=== PATIENT | male | born 1950 | race Caucasian/White ===

== ENCOUNTER → 2016-04-08 | Outpatient (CLI) | payer MEDICARE ==
[2016-04-08 10:49] LABS: Blood Urea Nitrogen 21 mg/dL (9-20); Non-African American GFR(MDRD) >60 (>60 ml/min/1.73 sqM)
--- NOTE | 2016-04-08 13:01 | CT ---
EXAMINATION TYPE: CT pelvis w con DATE OF EXAM: 04/08/2016 11:22 AM COMPARISON: CT left hip March 08, 2016 HISTORY: Enlarged pelvic lymph node per order. CT DLP: 1550.00 mGycm Automated exposure control for dose reduction was used. CONTRAST: Performed with IV Contrast, patient injected with 100 mL of Omnipaque 300. FINDINGS: In the left groin there is persistent oval-shaped soft tissue density measuring 2.5 x 2.0 cm on axial image 43 anterior to the femoral vessels in which enlarged abnormal lymph node cannot be excluded. This is stable in size and appearance from prior exam. Just below this inferiorly extending towards t he skin surface there is a tortuous vessel. A vascular etiology to this lesion such as aneurysm canno t be excluded. There is no suspicious small or large bowel dilatation. There is no concerning pelvic fluid collectio n or pneumoperitoneum. There is no greater than 1 cm intrapelvic adenopathy identified. No suspicious right side groin adenopathy is seen. Urinary bladder is felt within normal limits. Prostate gland is felt not enlarged. There is moderate to severe disc space narrowing and spurring with vacuum disc phenomenon and endplat e sclerosis right L3-L4 level. Slight scoliotic curvature is present. There is subchondral cystic jordy nge involving the superolateral acetabulum on the left redemonstrated. IMPRESSION: STABLE LESION LEFT GROIN COULD REFLECT ABNORMAL LYMPH NODE VERSUS VASCULAR ETIOLOGY. ADVISE ULTRASOUN D CORRELATION TO FURTHER ASSESS.
== END | disposition home or self-care (01) ==
LOC: RADCTMAIN 10:08
PROVIDERS: ATTEND Internal Medicine
DX: R59.0 Localized enlarged lymph nodes (principal)
CPT/HCPCS: 82565; 84520; 72193; 36415; Q9967

== ENCOUNTER → 2016-06-07 | Outpatient (CLI) | payer OTHER | END | disposition home or self-care (01) | LOC: LABWHC1 10:52 | PROVIDERS: ATTEND Orthopaedic Surgery | DX: E55.9 Vitamin D deficiency, unspecified (principal) | CPT/HCPCS: 36415; 82306 ==

== ENCOUNTER → 2016-08-08 | Outpatient (CLI) | payer MEDICARE, OTHER | END | disposition home or self-care (01) | LOC: LABWHC1 12:21 | PROVIDERS: ATTEND Internal Medicine Endocrinology, Diabetes & Metabolism | DX: E10.65 Type 1 diabetes mellitus with hyperglycemia (principal) | CPT/HCPCS: 36415; 82947; 84681 ==

== ENCOUNTER → 2016-09-12 | Outpatient (CLI) | payer MEDICARE, OTHER ==
--- NOTE | 2016-09-12 10:20 | US ---
EXAMINATION TYPE: US groin extremity LT DATE OF EXAM: 09/12/2016 COMPARISON: Previous CT scan of the pelvis dated 04/08/2016 CLINICAL HISTORY: Lymphadenopathy R59.1; left groin node seen on CT here Single left groin node is imaged = 2.4 x 2.0 x 0.8cm; also noted is patent, tortuous, and dilated sup erficial saphenous vein at left groin. IMPRESSION: 1. NO PATHOLOGICALLY ENLARGED LYMPH NODES ARE SEEN AT THIS TIME. 2. DILATED SUPERFICIAL SAPHENOUS VEIN MAY REFLECT VARICES.
== END | disposition home or self-care (01) ==
LOC: RADUSWWP 09:17
PROVIDERS: ATTEND Surgery
DX: R59.1 Generalized enlarged lymph nodes (principal); I86.8 Varicose veins of other specified sites

== ENCOUNTER → 2016-09-13 | Outpatient (CLI) | payer OTHER, MEDICARE ==
--- NOTE | 2016-09-13 09:35 | CT ---
EXAMINATION TYPE: CT foot LT wo con DATE OF EXAM: 09/13/2016 COMPARISON: Radiograph obtained on March 06, 2016. HISTORY: Displaced fx of 5th Metatarsal, Lt foot CT DLP: 145.3 mGycm Automated exposure control for dose reduction was used. TECHNIQUE: Axial CT images were obtained of the left foot without the use of contrast. Coronal and sa gittal reformatted images were reviewed at the workstation. FINDINGS: An oblique fracture is again noted in the mid to distal aspect of the fifth metatarsal. There is mini mal osteoid formation along the medial and inferior aspect of the fracture line. There is no signific ant osteoid formation along the superior distal and proximal aspects of the fracture. Some soft tissu e swelling is also noted at this location. There is no subcutaneous air or radiopaque foreign body id entified. A few vascular calcifications are again noted. The tendons of the foot are grossly unremarkable on this CT examination. Mild osteophyte changes are noted with osteophyte formation arising from the proximal aspect of the distal phalanx of the first d igit. Several other areas of degenerative changes are noted. IMPRESSION: Nonhealing spiral oblique fracture of the fifth metatarsal. Minimal osteoid formation noted medially and inferiorly.
== END | disposition home or self-care (01) ==
LOC: RADCTMAIN 07:45
PROVIDERS: ATTEND Orthopaedic Surgery
DX: S92.352G Displaced fracture of fifth metatarsal bone, left foot, subsequent encounter for fracture with delayed healing (principal); M86.672 Other chronic osteomyelitis, left ankle and foot; E10.43 Type 1 diabetes mellitus with diabetic autonomic (poly)neuropathy

== ENCOUNTER 2018-01-20 08:51 | Emergency (ER) | payer MEDICARE, OTHER ==
[2018-01-20 09:05] VITALS: TEMP 98.1
--- NOTE | 2018-01-20 09:08 | ED ---
General Adult HPI - General Stated complaint: Hypoglycemia Time Seen by Provider: 01/20/18 08:54 Source: patient, EMS, RN notes reviewed Mode of arrival: EMS Limitations: altered mental status - History of Present Illness Initial comments: Patient is a pleasant 67-year-old male presenting to the emergency department with hypoglycemia. 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 Patient admits to feeling somewhat confused. EMS arrived with blood sugar of 47. Patient was given oral glucose. Symptoms are resolved and patient is symptom-free at this time. No injury. Patient states he frequently does have his blood sugar dropped. Patient states he has been losing weight recently and his blood sugar has been dropping sometimes several times per day. Patient states he did have some toast this morning. - Related Data Home Medications Medication Instructions Recorded Confirmed Amitriptyline HCl [Elavil] 75 mg PO HS 10/16/13 01/20/18 Aspirin 81 mg PO DAILY 10/16/13 01/20/18 Cholecalciferol [Vitamin D3] 1,000 unit PO BID 10/16/13 01/20/18 Metoprolol Succinate [Toprol XL] 25 mg PO DAILY 10/16/13 01/20/18 Simvastatin [Zocor] 20 mg PO HS 10/16/13 01/20/18 Sodium Polystyrene Sulfonate 7.5 gm PO FR 10/16/13 01/20/18 [Kayexalate] Tamsulosin [Flomax] 0.4 mg PO DAILY 10/16/13 01/20/18 Citalopram Hydrobromide 20 mg PO DAILY 01/20/18 01/20/18 [Citalopram HBr] Col Rite 250 Mg 250 mg PO DAILY 01/20/18 01/20/18 Insulin Aspart (For Pump) [NovoLOG 0.01 unit SQ-PUMP CONTINUOUS 01/20/18 (For Pump)] Pantoprazole [Protonix] 40 mg PO BID 01/20/18 01/20/18 rOPINIRole HCL [Requip] 0.5 mg PO HS 01/20/18 01/20/18 traMADol HCl [Ultram] 50 mg PO TID PRN 01/20/18 01/20/18 Allergies Allergy/AdvReac Type Severity Reaction Status Date / Time No Known Allergies Allergy Verified 10/30/18 09:12 Review of Systems ROS Statement: Those systems with pertinent positive or pertinent negative responses have been documented in the HPI. ROS Other: All systems not noted in ROS Statement are negative. Constitutional: Denies: fever Eyes: Denies: eye pain ENT: Denies: ear pain Respiratory: Denies: cough Cardiovascular: Denies: chest pain Endocrine: Denies: fatigue Gastrointestinal: Denies: abdominal pain Genitourinary: Denies: dysuria Musculoskeletal: Denies: back pain Skin: Denies: rash Neurological: Denies: headache Past Medical History Past Medical History: Diabetes Mellitus Additional Past Medical History / Comment(s): neuropathy, back pain, History of Any Multi-Drug Resistant Organisms: None Reported Additional Past Surgical History / Comment(s): right knee, carpal tunnel, right shoulder, Past Psychological History: Depression Smoking Status: Former smoker Past Alcohol Use History: None Reported Past Drug Use History: None Reported General Exam Limitations: no limitations General appearance: alert, in no apparent distress Head exam: Present: atraumatic, normocephalic Eye exam: Present: normal appearance, PERRL ENT exam: Present: normal oropharynx Neck exam: Present: normal inspection. Absent: tenderness Respiratory exam: Present: normal lung sounds bilaterally Cardiovascular Exam: Present: regular rate, normal rhythm GI/Abdominal exam: Present: soft. Absent: tenderness Extremities exam: Present: normal inspection Neurological exam: Present: alert, oriented X3, CN II-XII intact. Absent: motor sensory deficit Expanded Neurological exam: Present: protecting the airway Speech: Present: fluid speech Cranial nerves: EOM's Intact: Normal Motor strength exam: RUE: 5, LUE: 5, RLE: 5, LLE: 5 Eye Response: (4) open spontaneously Motor Response: (6) obeys commands Verbal Response: (5) oriented Psychiatric exam: Present: normal affect, normal mood Skin exam: Present: normal color Course Vital Signs 01/20/18 08:53 Temperature 98.1 F Pulse Rate 62 Respiratory 18 Rate Blood Pressure 134/60 O2 Sat by Pulse 95 Oximetry - Reevaluation(s) Reevaluation #1: 01/20/18 09:07 Patient is advised to decrease his basal insulin rate on his pump and he is adjusting it at this time. Medical Decision Making - Medical Decision Making Patient reevaluated and remained symptom-free. Blood sugar 1:30. Patient has decreased his insulin pump settings all by 20%. 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 - Lab Data Lab Results 01/20/18 01/20/18 01/20/18 Range/Units 09:04 09:34 10:08 POC Glucose (mg/dL) 83 131 H 140 H (75-99) mg/dL POC Glu Play Reader Dilcia Davis Rachel Pearson, Rachel Disposition Clinical Impression: Hypoglycemia Disposition: HOME SELF-CARE Condition: Stable Instructions: Hypoglycemia in a Person with Diabetes (ED) Additional Instructions: Please follow-up with your primary care physician as well as your breeding technician in the next day or 2 for recheck. Please continue to check your blood sugar frequently throughout the day. Return for low blood sugar, uncontrolled blood sugar, change in mental status, worsening symptoms or other concerns. Is patient prescribed a controlled substance at d/c from ED?: No Referrals: Ej Gibsno MD [Primary Care Provider] - 1-2 days Time of Disposition: 10:21
[2018-01-20 09:25] LABS: Glucose,Whole Blood 83 mg/dL (75-99)
[2018-01-20 09:36] LABS: Glucose,Whole Blood 131 mg/dL (75-99)
[2018-01-20 10:09] LABS: Glucose,Whole Blood 140 mg/dL (75-99)
[2018-01-20 10:30] VITALS: BP 114/72; PULSE 67; RESP 16
== END 2018-01-20 10:30 | disposition home or self-care (01) ==
LOC: EC 08:51
DX: E11.649 Type 2 diabetes mellitus with hypoglycemia without coma (principal); E11.40 Type 2 diabetes mellitus with diabetic neuropathy, unspecified; F32.9 Major depressive disorder, single episode, unspecified; Z87.891 Personal history of nicotine dependence; Z79.4 Long term (current) use of insulin; Z79.82 Long term (current) use of aspirin; Z79.899 Other long term (current) drug therapy; Z87.39 Personal history of other diseases of the musculoskeletal system and connective tissue
CPT/HCPCS: 36415; 99285

== ENCOUNTER → 2018-01-26 | Outpatient (CLI) | payer MEDICARE, OTHER ==
--- NOTE | 2018-01-26 22:25 | MR ---
EXAMINATION TYPE: MR lumbar spine wo con DATE OF EXAM: 01/26/2018 COMPARISON: None HISTORY: 67-year-old male with pain, lumbar radiculopathy TECHNIQUE: Multiplanar, multisequence images of the lumbar spine were acquired. FINDINGS: Vertebral body heights are preserved and alignment is maintained. There is a degenerated levoconvex scoliosis. Associated severe disc/endplate degenerative change leticia cially along the rightward side of concavity at L3-L4. Associated Modic type II fatty endplate change . No suspicious bone marrow placement. Multilevel degenerative disc disease with variable mild to moderate disc desiccation and mild disc in terspace narrowing. Bulging discs are present at multiple levels. Ligamentum flavum thickening and hypertrophic facet arthropathy is present throughout. Conus medullaris is normal. No prevertebral or paravertebral soft tissue abnormality. At T12-L1, mild diffuse disc bulge without spinal canal or foraminal stenosis. At L1-L2, no spinal canal or neuroforaminal stenosis. At L2-L3, there is diffuse disc bulge with facet degenerative change. Changes result in mild left mary roforaminal stenosis. Disc material also closely approaches and may abut the traversing left L3 nerve root. At L3-L4, there is diffuse disc bulge with ligamentum flavum thickening and hypertrophic facet degene rative change. Changes result in moderate to severe spinal canal stenosis with moderate to severe rig ht neural foraminal stenosis. At L4-L5, bulging disc with ligamentum flavum thickening and facet arthropathy. Mild circumferential attenuation of the thecal sac. Disc material closely approaches and may abut the traversing left L5 n erve root. Changes result in minimal inferior neural foraminal narrowing. At L5-S1, there is diffuse disc bulge with facet degenerative change. Changes result in mild left mary roforaminal stenosis without spinal canal stenosis. IMPRESSION: 1. Degenerated levoconvex scoliosis with severe disc/endplate degenerative change towards the right a t L3-L4. 2. Additional moderate multilevel degenerative disc disease as well as hypertrophic facet arthropathy and ligamentum flavum thickening. Changes result in moderate to severe spinal canal stenosis at L3-L 4 with moderate to severe right neuroforaminal stenosis at this level as well. 3. Disc material closely approaches and may abut the traversing left L3 nerve root at L2-L3 and the l eft L5 nerve root at L4-L5.
== END | disposition home or self-care (01) ==
LOC: RADMRIMAIN 10:50
PROVIDERS: ATTEND Internal Medicine
DX: M48.061 Spinal stenosis, lumbar region without neurogenic claudication (principal); M99.73 Connective tissue and disc stenosis of intervertebral foramina of lumbar region; M51.36 Other intervertebral disc degeneration, lumbar region; M47.816 Spondylosis without myelopathy or radiculopathy, lumbar region; M41.86 Other forms of scoliosis, lumbar region
CPT/HCPCS: 72148

== ENCOUNTER → 2018-03-10 | Outpatient (CLI) | payer MEDICARE, OTHER ==
--- NOTE | 2018-03-10 22:41 | MR ---
EXAMINATION TYPE: MR brain wo/w con DATE OF EXAM: 03/10/2018 COMPARISON: NONE HISTORY: Brain tumor and TIA per order. Episodes of syncope with bilateral extremity numbness and wea kness and dizziness or hearing loss all probation. TECHNIQUE: Multiplanar, multisequence images of the brain and brainstem is performed without and with IV contras t, utilizing 11.5 mL intravenous Gadavist . FINDINGS: Diffusion weighted images demonstrate no evidence of a recent infarct or other diffusion ab normality. There is no worrisome extra-axial fluid collection. The ventricular system and cisternal spaces are normal in size and appearance. The brain volume is age appropriate. Few foci of T2 hyper intensity in the periventricular white matter are present. Midline structures demonstrate normal morphology. Lesion in the third ventricle FLAIR axial image 14 does not reproduced on any additional sequences presumed artifact. The craniocervical junction appear s within normal limits. Post contrast images demonstrate no abnormal enhancement. Dominant right vasu tebral artery is incidentally seen. The dural venous sinuses appear patent. The visualized sinuses ar e clear and the globes are intact. No suspicious opacification mastoid air cells is present bilateral ly. IMPRESSION: No significant finding is seen to account for patient's symptoms.
== END | disposition home or self-care (01) ==
LOC: RADMRIMAIN 08:14
PROVIDERS: ATTEND Psychiatry & Neurology Neurology
DX: D49.6 Neoplasm of unspecified behavior of brain (principal); G45.2 Multiple and bilateral precerebral artery syndromes
CPT/HCPCS: 82565; 84520; 70553; A9585

== ENCOUNTER 2018-03-20 18:09 | Emergency (ER) | payer MEDICARE, OTHER ==
--- NOTE | 2018-03-20 18:54 | ED ---
General Adult HPI - General Chief complaint: Recheck/Abnormal Lab/Rx Stated complaint: abn labs Time Seen by Provider: 03/20/18 18:42 Source: patient, RN notes reviewed, old records reviewed Mode of arrival: ambulatory Limitations: no limitations - History of Present Illness Initial comments: 67-year-old male history of diabetes, chronic kidney disease presenting with abnormal outpatient laboratory study. Patient had a low potassium on routine blood work. Bloodwork was obtained for pre-heart catheterization which is planned for the upcoming weeks. This was secondary to positive stress test. Patient denies chest pain, denies dyspnea. He does report moderate reduction in his urination. No lower extremity swelling. He currently follows with nephrology and is prescribed Kayexalate which she has not been using recently because his previous potassium level was low. Patient has no physical complaints. - Related Data Home Medications Medication Instructions Recorded Confirmed Amitriptyline HCl [Elavil] 75 mg PO HS 10/16/13 03/20/18 Aspirin 81 mg PO DAILY 10/16/13 03/20/18 Cholecalciferol [Vitamin D3] 1,000 unit PO BID 10/16/13 03/20/18 Simvastatin [Zocor] 20 mg PO HS 10/16/13 03/20/18 Sodium Polystyrene Sulfonate 7.5 gm PO FR 10/16/13 03/20/18 [Kayexalate] Tamsulosin [Flomax] 0.4 mg PO HS 10/16/13 03/20/18 Citalopram Hydrobromide 20 mg PO DAILY 01/20/18 03/20/18 [Citalopram HBr] Insulin Aspart (For Pump) [NovoLOG 0.01 unit SQ-PUMP CONTINUOUS 01/20/18 (For Pump)] Pantoprazole [Protonix] 40 mg PO BID 01/20/18 03/20/18 rOPINIRole HCL [Requip] 0.5 mg PO HS 01/20/18 03/20/18 traMADol HCl [Ultram] 50 mg PO TID PRN 01/20/18 03/20/18 Metoprolol Tartrate [Lopressor] 12.5 mg PO AC-BRKFST 03/20/18 03/20/18 Multivitamins, Thera [Multivitamin 1 tab PO DAILY 03/20/18 03/20/18 (formulary)] metFORMIN HCL [Glucophage] 500 mg PO BID 03/20/18 03/20/18 Allergies Allergy/AdvReac Type Severity Reaction Status Date / Time No Known Allergies Allergy Verified 03/20/18 19:23 Review of Systems ROS Statement: Those systems with pertinent positive or pertinent negative responses have been documented in the HPI. ROS Other: All systems not noted in ROS Statement are negative. Past Medical History Past Medical History: Diabetes Mellitus Additional Past Medical History / Comment(s): neuropathy, back pain, History of Any Multi-Drug Resistant Organisms: None Reported Additional Past Surgical History / Comment(s): right knee, carpal tunnel, right shoulder, Past Psychological History: Depression Smoking Status: Former smoker Past Alcohol Use History: None Reported Past Drug Use History: None Reported General Exam Limitations: no limitations General appearance: alert, in no apparent distress Head exam: Present: atraumatic, normocephalic Eye exam: Present: normal appearance, PERRL ENT exam: Present: normal exam Neck exam: Present: normal inspection. Absent: tenderness, meningismus Respiratory exam: Present: normal lung sounds bilaterally. Absent: respiratory distress, wheezes Cardiovascular Exam: Present: regular rate, normal rhythm GI/Abdominal exam: Present: soft. Absent: distended, tenderness, guarding Extremities exam: Present: normal inspection, normal capillary refill. Absent: pedal edema, calf tenderness Neurological exam: Present: alert, oriented X3, CN II-XII intact. Absent: motor sensory deficit Psychiatric exam: Present: normal affect, normal mood Skin exam: Present: warm, dry, intact. Absent: cyanosis, diaphoretic Course Vital Signs 03/20/18 18:12 Temperature 97.5 F L Pulse Rate 83 Respiratory 20 Rate Blood Pressure 149/76 O2 Sat by Pulse 99 Oximetry EKG Findings - EKG Comments: EKG Findings:: EKG: Sinus rhythm, rate of 69, UT interval 144, QRS duration 94, QTC 422, no ST segment elevation or depression no signs of hyperkalemia Medical Decision Making - Medical Decision Making 67-year-old male presenting with abnormal outpatient lab, patient had elevated potassium. He has no complaints. EKG shows normal sinus rhythm, no signs of hyperkalemia on EKG. Labs are redrawn, normal CBC, normal electrolytes including a potassium of 4.9 which is normal. Creatinine 1.25 which is improved from previous testing. Patient will be discharged home, follow-up with nephrology as an outpatient. - Lab Data Result diagrams: 03/20/18 18:59 03/20/18 18:59 Lab Results 03/20/18 03/20/18 Range/Units 18:59 18:59 WBC 6.0 (3.8-10.6) k/uL RBC 4.11 L (4.30-5.90) m/uL Hgb 13.0 (13.0-17.5) gm/dL Hct 38.9 L (39.0-53.0) % MCV 94.7 (80.0-100.0) fL MCH 31.7 (25.0-35.0) pg MCHC 33.4 (31.0-37.0) g/dL RDW 13.4 (11.5-15.5) % Plt Count 212 (150-450) k/uL Neutrophils % 46 % Lymphocytes % 41 % Monocytes % 5 % Eosinophils % 6 % Basophils % 0 % Neutrophils # 2.7 (1.3-7.7) k/uL Lymphocytes # 2.5 (1.0-4.8) k/uL Monocytes # 0.3 (0-1.0) k/uL Eosinophils # 0.3 (0-0.7) k/uL Basophils # 0.0 (0-0.2) k/uL Sodium 137 (137-145) mmol/L Potassium 4.9 (3.5-5.1) mmol/L Chloride 104 (98-107) mmol/L Carbon Dioxide 26 (22-30) mmol/L Anion Gap 7 mmol/L BUN 25 H (9-20) mg/dL Creatinine 1.25 (0.66-1.25) mg/dL Est GFR (CKD-EPI)AfAm 69 (>60 ml/min/1.73 sqM) Est GFR (CKD-EPI)NonAf 60 (>60 ml/min/1.73 sqM) Glucose 108 H (74-99) mg/dL Calcium 9.6 (8.4-10.2) mg/dL Magnesium 2.0 (1.6-2.3) mg/dL Total Bilirubin 0.4 (0.2-1.3) mg/dL AST 24 (17-59) U/L ALT 22 (21-72) U/L Alkaline Phosphatase 51 (38-126) U/L Total Protein 6.9 (6.3-8.2) g/dL Albumin 3.9 (3.5-5.0) g/dL Disposition Clinical Impression: Hyperkalemia Disposition: HOME SELF-CARE Condition: Good Is patient prescribed a controlled substance at d/c from ED?: No Referrals: Ej Gibson MD [Primary Care Provider] - 1-2 days Time of Disposition: 19:51
[2018-03-20 19:10] LABS: Basophils % (A) 0 %; Eosinophils # (A) 0.3 k/uL (0-0.7); Eosinophils % (A) 6 %; HCT 38.9 % (39.0-53.0); Lymphocytes # (A) 2.5 k/uL (1.0-4.8); Lymphocytes % (A) 41 %; MCH 31.7 pg (25.0-35.0); MCHC 33.4 g/dL (31.0-37.0); MCV 94.7 fL (80.0-100.0); Mean Platelet Volume 7.1; Monocytes # (A) 0.3 k/uL (0-1.0); Monocytes % (A) 5 %; Neutrophils # (A) 2.7 k/uL (1.3-7.7); Neutrophils % (A) 46 %; Platelet Count 212 k/uL (150-450); RBC 4.11 m/uL (4.30-5.90); RDW 13.4 % (11.5-15.5)
[2018-03-20 19:28] LABS: Albumin 3.9 g/dL (3.5-5.0); Calcium 9.6 mg/dL (8.4-10.2); Potassium 4.9 mmol/L (3.5-5.1); Total Bilirubin 0.4 mg/dL (0.2-1.3); Total Protein 6.9 g/dL (6.3-8.2)
[2018-03-20 20:17] VITALS: BP 130/72; PULSE 70; RESP 18; TEMP 98.9
== END 2018-03-20 20:16 | disposition home or self-care (01) ==
LOC: EC 18:09
DX: E87.5 Hyperkalemia (principal); R39.12 Poor urinary stream; E11.40 Type 2 diabetes mellitus with diabetic neuropathy, unspecified; F32.9 Major depressive disorder, single episode, unspecified; Z87.891 Personal history of nicotine dependence; Z79.4 Long term (current) use of insulin; Z79.82 Long term (current) use of aspirin; Z79.899 Other long term (current) drug therapy; Z87.39 Personal history of other diseases of the musculoskeletal system and connective tissue
CPT/HCPCS: 36415; 80053; 83735; 85025; 93005; 99284

== ENCOUNTER → 2018-03-20 | Outpatient (CLI) | payer MEDICARE, OTHER ==
[2018-03-20 12:09] LABS: HCT 43.4 % (39.0-53.0); HGB 13.9 gm/dL (13.0-17.5); MCH 31.2 pg (25.0-35.0); MCHC 32.2 g/dL (31.0-37.0); MCV 97.1 fL (80.0-100.0); Mean Platelet Volume 7.5; Platelet Count 225 k/uL (150-450); RBC 4.47 m/uL (4.30-5.90); RDW 13.3 % (11.5-15.5); WBC 6.9 k/uL (3.8-10.6)
[2018-03-20 12:27] LABS: Magnesium 2.1 mg/dL (1.6-2.3)
[2018-03-20 12:32] LABS: Potassium 6.2 mmol/L (3.5-5.1)
== END | disposition home or self-care (01) ==
LOC: LABPAT 11:00
PROVIDERS: ATTEND Internal Medicine Interventional Cardiology
DX: Z01.812 Encounter for preprocedural laboratory examination (principal); R94.39 Abnormal result of other cardiovascular function study; I10 Essential (primary) hypertension; E78.2 Mixed hyperlipidemia; E10.8 Type 1 diabetes mellitus with unspecified complications
CPT/HCPCS: 36415; 80051; 82565; 82947; 83735; 84520; 85027

== ENCOUNTER 2018-04-03 10:50 | Day surgery (SDC) | payer MEDICARE, OTHER ==
[2018-03-31 14:39] VITALS: BMI 34.5
[~2018-04-03 10:50] MED LIST: ALPRAZolam 0.25 MG TAB PO PRN; ALPRAZolam 0.5 MG TAB PO PRN; ASPIRIN 325 MG TAB PO ONE; ATORVASTATIN 80 MG TAB PO ONE; NITROGLYCERIN SL TABS 0.4 MG TAB SUBLINGUAL PRN; SODIUM CHLORIDE 0.9% 1,000 ML in EMPTY BAG 1 BAG IV ONE
[2018-04-03 11:15] LABS: Glucose,Whole Blood 311 mg/dL (75-99)
[2018-04-03] MEDS ORDERED: MIDAZOLAM 2 MG/2 ML VIAL IV ONE ×2 (12:04)
[2018-04-03] MEDS ORDERED: LIDOCAINE 1% INJ 10MG/ML (20 ML MDV) SQ ONE (12:09)
[2018-04-03] MEDS ORDERED: VERAPAMIL SYRINGE (5 MG/10 ML) INTRAARTER ONE (12:10)
[2018-04-03] MEDS ORDERED: HEPARIN SODIUM 1,000 UN/ML (10ML VL) IV ONE (12:13)
[2018-04-03] MEDS ORDERED: IOPAMIDOL-370 100ML BTL INJ ONE (12:22)
[2018-04-03] MEDS ORDERED: SODIUM CHLORIDE 0.9% 1,000 ML IV SCH (12:55)
--- NOTE | 2018-04-03 13:23 | CC ---
CARDIAC CATHETERIZATION REPORT DATE OF SERVICE: 04/03/2018 PROCEDURE: Left heart catheterization, coronary angiography. PERFORMED BY: Dr. Charleen Bhardwaj. Moderate conscious sedation time was 24 minutes. Patient was administered Versed. His oxygen saturation, hemodynamics and EKG were monitored closely. CLINICAL INFORMATION: Mr. Yury Brewer is a 67-year-old gentleman with a history of syncope type 1 diabetes on insulin pump, hypertension, hyperlipidemia, who has had a positive stress test and was therefore advised coronary angiography. Risks, benefits, options, rationale were discussed at length with the patient. PROCEDURE NOTE: Under local anesthesia and strict aseptic precautions, a 6-[place]ian introducer was placed in the right radial artery. Using standard study, using 3.5 left and 4.0 right Bonnie catheters I performed coronary angiography and left ventricular pressures were checked with a pigtail catheter and LV gram was not performed. The sheath was taken out and the saturation of the fingers of the right hand was 98%. A TR band was applied and patient was sent to the room in a stable condition. Results were discussed with the patient and . The patient received 3000 units of heparin intravenously. CARDIAC CATHETERIZATION FINDINGS: The left ventricular end-diastolic pressure was 8 mmHg without any gradient across aortic valve. LV gram was not performed. RIGHT CORONARY ARTERY: Dominant vessel has mild to moderate calcification. In the midportion, there is about a 40% to 45% lesion. Distally it bifurcates into PDA and PLV. No significant disease with minor diffuse irregularities. LEFT MAIN CORONARY ARTERY: Short patent vessel that bifurcates into LAD and circumflex. No significant disease in the left main. LEFT ANTERIOR DESCENDING CORONARY ARTERY: Good caliber vessel extends along the anterior wall. It gives off septal and diagonal branches. In the mid portion, there is diffuse disease in the LAD all the way to the apex in the range of about 40%-45% The distal 1/3 of the LAD therefore has diffuse disease but no other critical lesions are noted. LEFT POSTERIOR CIRCUMFLEX CORONARY ARTERY: This is a nondominant vessel, gives off a first obtuse marginal, which has about a 40% lesion in the proximal and midportion with minor diffuse irregularities. Circumflex then continues in the AV groove and gives off a larger second obtuse marginal, which has minor irregularities no significant disease. In the midportion, there is a 40% lesion. The continuation of circumflex in the AV groove is also diffusely diseased, but no critical lesions. FINAL IMPRESSION: This patient has moderate noncritical diffuse disease involving all 3 arteries with a right-dominant system, normal filling pressures and no gradient across the aortic valve. Left ventriculogram was not performed. RECOMMENDATION: We will pursue aggressive medical therapy with lipid-lowering strategy and patient will be discharged later on today if he remains stable and I will see him in the office next week. MMODL / IJN: [id number] /
[2018-04-03 16:14] VITALS: TEMP 98
[2018-04-03 17:10] LABS: Glucose,Whole Blood 126 mg/dL (75-99)
[2018-04-03 17:28] VITALS: BP 158/72; RESP 18
[2018-04-03 19:15] VITALS: PULSE 63
== END 2018-04-03 19:15 | disposition home or self-care (01) ==
LOC: CATHCVL 10:50 → 1SOBS 12:31 → CATHCVL 19:15
PROVIDERS: ATTEND Internal Medicine Interventional Cardiology
DX: I25.10 Atherosclerotic heart disease of native coronary artery without angina pectoris (principal); E78.00 Pure hypercholesterolemia, unspecified; R94.39 Abnormal result of other cardiovascular function study; E10.649 Type 1 diabetes mellitus with hypoglycemia without coma; I10 Essential (primary) hypertension; E78.5 Hyperlipidemia, unspecified; Z79.4 Long term (current) use of insulin; Z96.41 Presence of insulin pump (external) (internal); Z79.82 Long term (current) use of aspirin; Z79.899 Other long term (current) drug therapy; Z72.0 Tobacco use
CPT/HCPCS: 93458; C1769; C1894; J2250; J2001; J1644; Q9967

== ENCOUNTER → 2018-04-15 | Outpatient (CLI) | payer MEDICARE, OTHER ==
--- NOTE | 2018-04-16 17:00 | BD ---
EXAMINATION TYPE: Axial Bone Density DATE OF EXAM: 04/15/2018 COMPARISON: NONE CLINICAL HISTORY: Height: 70 IN Weight: 266 LBS FRAX RISK QUESTIONS: History of Fracture in Adulthood: YES LEFT FOOT AGE 65 Secondary Osteoporosis: 1. Type 1 Diabetes: YES RISK FACTORS HISTORY OF: Active: YES Lost more than 2 inches in height since high school: YES 3" Frequent falls: FALLS DUE TO BALANCE AND DIZZINESS MEDICATIONS: Additional Medications: VITAMIN D, ASPIRIN, AMITRIPTYLINE, PANTAPRAZOLE, SIMVASTATIN, METOPROLOL,ROPI NIROLE, CITALOPRAM, NOVALOG, EXAM MEASUREMENTS: Bone mineral densitometry was performed using the [employer] System. Bone mineral density as measured about the Lumbar spine is: ----- L1-L4(G/cm2): 1.472 T Score Values are as follows: ----- L2: 2.3 ----- L3: 3.1 ----- L4: 3.1 ----- L1-L4: 2.4 Bone mineral density BASELINE Bone mineral density about the R hip (g/cm2): 0.817 Bone mineral density about the L hip (g/cm2): 0.859 T Score values are as follows: -----R Neck: -1.6 -----L Neck: -1.3 -----R Total: -0.5 -----L Total: 0.0 Bone mineral density BASELINE IMPRESSION: Osteopenia (T Score between -2.5 and -1). There is slightly increased risk of fracture and the patient may be considered for treatment. Re-Screen 2-5 years. NOTE: T-SCORE=SD OF THE YOUNG ADULT MEAN.
== END ==
LOC: RADBDWWP 15:37
PROVIDERS: ATTEND Internal Medicine
DX: M85.80 Other specified disorders of bone density and structure, unspecified site (principal)
CPT/HCPCS: 77080

== ENCOUNTER → 2018-04-24 | Outpatient (CLI) | payer MEDICARE, OTHER ==
--- NOTE | 2018-04-24 13:35 | XR ---
EXAMINATION TYPE: XR chest 2V DATE OF EXAM: 04/24/2018 COMPARISON: Chest x-ray October 16, 2013. HISTORY: Presurgical study. TECHNIQUE: Frontal and lateral views of the chest are obtained. FINDINGS: There is no focal air space opacity, pleural effusion, or pneumothorax seen. The cardiac silhouette size is within normal limits. The osseous structures are intact. IMPRESSION: No acute cardiopulmonary process on current study.
[2018-04-24 14:33] LABS: Basophils % (A) 0 %; Eosinophils # (A) 0.2 k/uL (0-0.7); Eosinophils % (A) 3 %; HCT 41.6 % (39.0-53.0); HGB 13.1 gm/dL (13.0-17.5); Lymphocytes % (A) 28 %; MCH 30.6 pg (25.0-35.0); MCHC 31.6 g/dL (31.0-37.0); MCV 96.9 fL (80.0-100.0); Mean Platelet Volume 7.8; Monocytes # (A) 0.3 k/uL (0-1.0); Monocytes % (A) 4 %; Neutrophils # (A) 4.4 k/uL (1.3-7.7); Neutrophils % (A) 63 %; Platelet Count 225 k/uL (150-450); RBC 4.29 m/uL (4.30-5.90); RDW 13.4 % (11.5-15.5); WBC 6.9 k/uL (3.8-10.6)
[2018-04-24 14:47] LABS: Partial Thromboplastin Time 22.3 sec (22.0-30.0); Prothrombin Time 10.4 sec (9.0-12.0)
[2018-04-24 14:51] LABS: Calcium 9.7 mg/dL (8.4-10.2); Potassium 4.9 mmol/L (3.5-5.1)
[2018-04-24 15:12] LABS: Appearance,Urine Clear (Clear); Bilirubin,Urine Negative (Negative); Blood,Urine Negative (Negative); Color,Urine Yellow; Glucose,Urine (UA) Negative (Negative); Ketones,Urine Negative (Negative); Leukocyte Esterase,Urine Negative (Negative); Nitrite,Urine Negative (Negative); PH, Urine 5.5 (5.0-8.0); Protein,Urine Negative (Negative); Specific Gravity,Urine 1.012 (1.001-1.035); Urobilinogen,Urine <2.0 mg/dL (<2.0)
== END | disposition home or self-care (01) ==
LOC: RADXRMAIN 13:10
PROVIDERS: ATTEND Orthopaedic Surgery Orthopaedic Surgery of the Spine
DX: Z01.818 Encounter for other preprocedural examination (principal); M48.061 Spinal stenosis, lumbar region without neurogenic claudication; Z79.01 Long term (current) use of anticoagulants; Z01.812 Encounter for preprocedural laboratory examination
CPT/HCPCS: 36415; 71046; 80048; 81003; 85025; 85610; 85730; 87070; 93005

== ENCOUNTER 2018-05-06 08:51 | Inpatient (IN) | payer MEDICARE, OTHER ==
[~2018-05-06 08:51] MED LIST changes: -ALPRAZolam 0.25 MG TAB PO PRN; -ALPRAZolam 0.5 MG TAB PO PRN; -ASPIRIN 325 MG TAB PO ONE; -ATORVASTATIN 80 MG TAB PO ONE; +BACITRACIN 50,000 UNIT, POLYMYXIN B 500,000 UNIT in SODIUM CHLORIDE 0.9% IRRIGATIO 1,00... IRRIGATION ONE; +DEXAMETHASONE SOD PHOSPHATE 10 MG/ML 1 ML VIAL IV ONE; +LIDOCAINE 1% 20 ML VIAL (10MG/ML) FOR IV START INTRADERMA PRN; +MIDAZOLAM (PF) 2 MG/2 ML VIAL IV PRN; -NITROGLYCERIN SL TABS 0.4 MG TAB SUBLINGUAL PRN; +ONDANSETRON 4 MG/2 ML VIAL IVP ONE; +SCOPOLAMINE 1.5MG/72HR PATCH TRANSDERM ONE; -SODIUM CHLORIDE 0.9% 1,000 ML in EMPTY BAG 1 BAG IV ONE; +ceFAZolin 3 GM in SODIUM CHLORIDE 0.9% 100 ML IVPB ONE
[2018-05-06 10:42] LABS: Glucose,Whole Blood 261 mg/dL (75-99)
[2018-05-06] MEDS: LACTATED RINGERS 1,000 ML IV SCH (10:45)
[2018-05-06] MEDS ORDERED: GLYCOPYRROLATE 0.2 MG/ML 2 ML VIAL ONE (12:31)
[2018-05-06] MEDS ORDERED: LIDOCAINE 1% INJ 10MG/ML (20 ML MDV) ONE (12:31)
[2018-05-06] MEDS ORDERED: ROCURONIUM BROMIDE 10 MG/ML 10 ML VIAL IV ONE (12:31)
[2018-05-06] MEDS ORDERED: PROPOFOL 10 MG/ML 20 ML VIAL IV ONE (12:31)
[2018-05-06] MEDS ORDERED: MIDAZOLAM 2 MG/2 ML VIAL ONE (12:31)
[2018-05-06] MEDS ORDERED: SUCCINYLCHOLINE CHLORIDE 100 MG/5 ML SYR IV ONE (12:31)
[2018-05-06] MEDS ORDERED: PHENYLEPHRINE-0.9% NACL SYG 1 MG/10 ML SYRINGE ONE (12:31)
[2018-05-06] MEDS ORDERED: fentaNYL (PF) 50 MCG/ML 2 ML AMP ONE (12:31)
[2018-05-06] MEDS ORDERED: NEOSTIGMINE 1 MG/ML 10 ML VIAL ONE (12:31)
[2018-05-06] MEDS ORDERED: LIDOCAINE 0.5%-EPI 1:200,000 50 ML VIAL SQ ONE (13:27)
[2018-05-06] MEDS ORDERED: THROMBIN (BOVINE) 5,000 UNIT VIAL TOPICAL ONE (13:28)
[2018-05-06] MEDS ORDERED: GELATIN SPONGE,ABSORB (LARGE) 1 EACH SPONGE TOPICAL ONE (13:28)
[2018-05-06] MEDS ORDERED: LACTATED RINGERS 1,000 ML IV ONE ×3 (13:30→16:22)
[2018-05-06 14:35] LABS: Glucose,Whole Blood 201 mg/dL (75-99)
[2018-05-06 15:33] LABS: Glucose,Whole Blood 183 mg/dL (75-99)
[2018-05-06] MEDS ORDERED: BENZOCAINE/MENTHOL LOZENG 1 EACH LOZENGE MUCOUS MEM PRN (15:40)
[2018-05-06] MEDS ORDERED: HYDROmorphone 1 MG/ML 1 ML SYRINGE IVP PRN (15:40)
[2018-05-06] MEDS ORDERED: ONDANSETRON 4 MG/2 ML VIAL IVP PRN (15:40)
[2018-05-06] MEDS ORDERED: HYDROmorphone 0.5 MG/0.5 ML SYRINGE IVP PRN ×2 (15:40)
[2018-05-06] MEDS ORDERED: MAGNESIUM HYDROXIDE 2,400 MG/10 ML CUP PO PRN (15:40)
[2018-05-06] MEDS ORDERED: HYDROcodone/APAP 5-325MG 1 EACH TAB PO PRN (15:40)
[2018-05-06] MEDS ORDERED: traMADol 50 MG TAB PO PRN (15:43)
[2018-05-06] MEDS ORDERED: Insulin Aspart (For Pump) 100 UNIT/ML VIAL SQ-PUMP SCH (15:45)
--- NOTE | 2018-05-06 15:52 | P.OP ---
Date of Procedure: 05/06/18 Preoperative Diagnosis: Degenerative scoliosis, severe spinal stenosis L3 4, lower extremity radiculopathy, degenerative disc disease, low back pain Postoperative Diagnosis: Same Anesthesia: GETA Pathology: none sent Condition: stable Disposition: PACU Description of Procedure: DESCRIPTION OF PROCEDURE(S): BRIEF OPERATIVE NOTE Preoperative Diagnosis: Degenerative scoliosis, severe spinal stenosis L3 4, lower extremity radiculopathy, degenerative disc disease, low back pain Postoperative Diagnosis: Same Procedure: Laminectomy and decompression L3 4 Minimally invasive Posterior lateral decompression and facet fusion L3 4 Minimally invasive Transforaminal lumbar interbody fusion for a 360 fusion L3 4 Discectomy for decompression L3 4 Placement of interbody graft L3 4 Local autogenous bone grafting Harvesting of bone marrow aspirate via the pedicle of L3 on the right Use of Cell Saver Use of bone graft extenders Surgeon: Dr. Marcus Claim Analyst: Yunior CADE who is present throughout the entire the case persistence during positioning, dissection, exposure, visualization, and all crucial elements of the case as well as closure. Anesthesia: General anesthesia Estimated blood loss: Approximately 200 mL with approximately 200 mL urine output Complications: None apparent Components implanted: K2M [place] pedicle screw system minimally invasive with use of 4 screws measuring 6.5 x 50 mm, 2 rods and 1 interbody Anchorage cage measuring 7 mm with 1 osteoamp sponge and 15 mL of DBX bone putty to supplemental the local autogenous and bone marrow aspirate graft Disposition: To recovery room in good stable condition. OPERATIVE INDICATIONS The patient has had long-standing issues in their lower back and lower extremities. Found to have a degenerative scoliosis at his lumbar spine centered at L3 4 where he had severe asymmetric disc degeneration with the concavity on the right. He had severe spinal stenosis L3 4 with disc protrusion and herniation causing lower extremity radiculopathy particular to the right side. He was having worsening pain despite aggressive conservative care. The patient has been through conservative treatment. We discussed various treatment options including surgery, and the possibility of decompression with fusion surgery and the patient wishes to proceed with surgery We discussed the risk, patient's alternatives and benefits of surgery including but not limited to, risk of bleeding risk of infection, risk of need for further surgery, risk of decreased, loss of motion, muscle function, malunion nonunion, hardware failure, nerve damage, paralysis, heart attack, blindness and . OPERATIVE SUMMARY After discussing all the risks, patient alternatives and benefits at length, the patient elected to proceed with surgical intervention, signed informed consent, and presented for their procedure. The patient was seen and examined in the preoperative holding area and the surgical site was marked. The patient was given antibiotics and brought to the operating room. The patient was sedated and intubated by anesthesia in standard fashion. The patient was positioned on to the operating room table in a prone position on the appropriate frame which was well-padded and well molded. We were careful to pad any bony prominences and pressure points. We were careful to maintain the patient's cervical spine and good neutral alignment and position throughout. The patient was prepped and draped in a normal standard fashion. An appropriate timeout and keystone protocol performed. We were able to proceed with the surgery. The local wound area was infiltrated with local anesthetic. I was able utilize C-arm guidance to establish appropriate position over the pedicles bilaterally at the appropriate levels at L3 and L4. With the appropriate levels confirmed was able to make small stab incisions over the appropriate pedicle sites bilaterally. Utilizing C-arm in his house able to establish a Jamshidi needle over the lateral aspect of the pedicle and advanced the trocar into the pedicle being careful not to breech superiorly inferiorly medially or laterally. Position was confirmed regularly with AP and lateral images on C-arm. I was able to establish the trocar into the pedicle appropriately into the posterior aspect of the vertebral body bilaterally at the appropriate levels at L3 and L4. This was done at each of the pedicle positions and each of the vertebrae. On the right side of L3 I withdrew approximately 25 mL of bone marrow aspirate from the pedicle and vertebral body to be used later as autograft supplementation. I was able place the guidewire into the trocar and into the vertebral body appropriately under C-arm guidance. Dissection was taken down over the wire to the appropriate starting position for the screw placed. The appropriate length screw was chosen, threaded over the guidewire and screwed appropriately into the pedicle and vertebral body under C-arm guidance in excellent alignment and position with good bony purchase. This is done at each of the screw sites at the appropriate levels at L3 and 4 bilaterally. With the screws intact I extended the incision to connect the screw hole sites on the most symptomatic side on the right. I dissected down to establish access over the pars and lamina to the base of the spinous process. I was able to expose the facet joint. The patient had a degenerative scoliosis and some rotation at the vertebral bodies. The capsule the facet was taken down and showed some facet arthrosis at the joint. I was able to use a combination of curettes and Kerrison rongeurs and a high-speed drill to take down the facet joint and do a facetectomy. Partial laminectomy was also performed. I was able get excellent foraminal decompression and central decompression with undermining across midline to perform a laminectomy centrally and contralaterally. As able get good central decompression. The ligamentum flavum was taken down to further decompress centrally and at bilateral neural foramen. I was able to expose the disc space and visualize the traversing nerve root. Note was made of some disc protrusion at the level causing further compression of the nerve root. I was able to establish a annulotomy at the appropriate level protecting soft tissue and neural structures. Note was made of some severe disc desiccation at the disc. There was severe right-sided collapse at the disc which I was able to open up with distraction at the area. I performed a complete discectomy with accommodation of curettes and rasps and scrapers. I was able get good endplate preparation at the disc space. I sized for the appropriate size interbody spacer protecting the soft tissue and neural structures. The wound was copiously irrigated and suctioned dry. There is no evidence of any dural tear or leak. I was able to pack the disc space with local autogenous bone graft as well as a small amount of bone graft which was also placed into the interbody cage itself. Protecting the soft tissue structures and neural structures I was able place the interbody cage in good alignment and good position with good fit and fill at the interbody space. He had about 10 seconds stimulation at his nerve when I place the interbody graft but this resolved and did not recur. There was evidence of extruded disc on the right far lateral area and this was removed as well for decompression. The position of the graft was confirmed with C-arm guidance. Good hemostasis maintained. There is no evidence of any dural tear or leak. The wound was irrigated and suctioned dry. With the hardware intact, intraoperative C-arm imaging was again taken which showed good alignment and position of the hardware at the appropriate levels at C3 and 4. We were then able to measure, contour and place the rods and appropriate hardware bilaterally. I was able to place capcrews, tighten them down, and torque them with the torque screwdriver appropriately. With this intact I was able to place the local autogenous bone graft with additional bone graft enhancer as necessary into the posterior lateral gutters over the decorticated transverse processes. We had good opening at the concavity and some yarsani of the alignment of the scoliosis. The remainder of the bone graft was placed over the facet joint on the contralateral side after taking down the facet joint capsule. With the bone graft intact, a stable construct, and good decompression at the appropriate levels, we were able to proceed with closure. Good hemostasis was maintained. There is no evidence of dural tear or leak. The fascia was closed for a watertight closure. he subcuticular tissue was closed with absorbable suture. The wound was cleaned and dried and dressed with the appropriate dressing. The drapes were broken down. The patient was gently rolled back onto their hospital bed being careful to maintain their cervical spine and good neutral alignment and position. They were woken up by anesthesia, extubated, and brought to the recovery room in good stable condition. The patient will be admitted to the hospital for appropriate postoperative care , medical management and monitoring. We will continue to follow them closely about the postoperative course.
--- NOTE | 2018-05-06 16:04 | FL ---
Fluoroscopy HISTORY: Lumbar fusion 59 seconds fluoroscopy time supplied to the referring clinician. 5 intraoperative C-arm images docum ent the procedure. See dictated report from orthopedic surgery.
--- NOTE | 2018-05-06 16:08 | XR ---
Lumbar spine HISTORY: Lumbar fusion 5 intraoperative C-arm images document the procedure.
[2018-05-06] MEDS: HYDROmorphone 0.5 MG/0.5 ML SYRINGE IVP PRN ×4 (16:13→16:38)
[2018-05-06 16:38] LABS: Glucose,Whole Blood 209 mg/dL (75-99)
[2018-05-06] MEDS: PANTOPRAZOLE 40 MG TABLET PO SCH (17:40)
[2018-05-06] MEDS: SODIUM CHLORIDE 0.9% 1,000 ML IV SCH (17:40)
[2018-05-06 17:54] VITALS: BMI 35.9
[2018-05-06 19:40] LABS: Glucose,Whole Blood 241 mg/dL (75-99)
[2018-05-06] MEDS ORDERED: TAMSULOSIN 0.4 MG CAP.ER.24H PO SCH (21:00)
[2018-05-06] MEDS: HYDROmorphone 1 MG/ML 1 ML SYRINGE IVP PRN (21:31)
[2018-05-06] MEDS: metFORMIN 500 MG TAB PO SCH (21:32)
[2018-05-06] MEDS: AMITRIPTYLINE HCL 25 MG TAB PO SCH (21:32)
[2018-05-06] MEDS: ceFAZolin 3 GM in SODIUM CHLORIDE 0.9% 100 ML IVPB SCH (21:32)
[2018-05-07] MEDS: HYDROcodone/APAP 5-325MG 1 EACH TAB PO PRN ×3 (01:17→20:31)
[2018-05-07] MEDS: HYDROmorphone 1 MG/ML 1 ML SYRINGE IVP PRN (05:22)
[2018-05-07] MEDS: ceFAZolin 3 GM in SODIUM CHLORIDE 0.9% 100 ML IVPB SCH (05:22)
[2018-05-07] MEDS: SODIUM CHLORIDE 0.9% 1,000 ML IV SCH (06:44)
[2018-05-07] MEDS: LACTATED RINGERS 1,000 ML IV SCH (06:45)
[2018-05-07 07:27] LABS: Glucose,Whole Blood 408 mg/dL (75-99)
[2018-05-07 07:50] LABS: Basophils % (A) 0 %; Eosinophils % (A) 0 %; HCT 36.1 % (39.0-53.0); HGB 11.8 gm/dL (13.0-17.5); Lymphocytes % (A) 12 %; MCH 32.2 pg (25.0-35.0); MCHC 32.5 g/dL (31.0-37.0); Mean Platelet Volume 7.2; Monocytes # (A) 0.5 k/uL (0-1.0); Monocytes % (A) 6 %; Neutrophils # (A) 6.8 k/uL (1.3-7.7); Neutrophils % (A) 81 %; Platelet Count 169 k/uL (150-450); RBC 3.65 m/uL (4.30-5.90); RDW 13.4 % (11.5-15.5); WBC 8.5 k/uL (3.8-10.6)
[2018-05-07 08:08] LABS: Potassium 4.9 mmol/L (3.5-5.1)
[2018-05-07] MEDS: METOPROLOL TARTRATE 12.5 MG TAB PO SCH (08:47)
--- NOTE | 2018-05-07 09:01 | P.PN ---
Progress Note - Text Progress Note Date: 05/07/18 Postoperative day #1 Patient is seen and examined today at bedside. The patient has some pain around the surgical site as expected. But his pain is controlled adequately. He has been able to sit up at site of bed rest difficulty rolling as expected. He has been having some difficulty with his urination this morning. Pain is being controlled with medication. He feels his legs are doing well. Physical Exam Afebrile with stable vital signs Abdomen is soft nontender. Chest has good excursion deep and space expiration The incision site is clean dry and intact. No erythema there is no purulence. The dressing is intact Extremities have not had neurologic change from prior to surgery. He has sustained dorsal to plantar flexion and EHL Calves and thighs were soft nontender without evidence of DVT. Assessment/Plan Postoperative day #1 status post minimally invasive decompression and fusion L3 4 for his degenerative scoliosis with spinal stenosis and radiculopathy Patient is progressing as expected from the surgery. His back and his legs are improving appropriately. We will continue to increase the patient's mobilization with therapy. He is trying to void on his own and hopefully we'll be able to sew this morning. If he is not able do so and we may have to reinsert catheter later today. We will continue pain control with oral or IV medications. We'll continue to follow patient closely.
[2018-05-07] MEDS: ATORVASTATIN 40 MG TAB PO SCH (09:38)
[2018-05-07] MEDS: PANTOPRAZOLE 40 MG TABLET PO SCH ×2 (09:38→18:05)
[2018-05-07] MEDS: metFORMIN 500 MG TAB PO SCH ×2 (09:38→21:02)
[2018-05-07] MEDS: CITALOPRAM HYDROBROMIDE 20 MG TAB PO SCH (09:38)
[2018-05-07] MEDS: ASPIRIN 81 MG PO SCH (09:38)
[2018-05-07] MEDS: CHOLECALCIFEROL 1,000 UNIT TAB PO SCH (09:38)
[2018-05-07] MEDS: SENNOSIDES-DOCUSATE SODIUM 1 EACH TAB PO SCH (09:39)
[2018-05-07] MEDS ORDERED: INSULIN PUMP ACTIVE INSULIN 1 EACH MISC MISCELLANE PRN (09:52)
[2018-05-07] MEDS ORDERED: INSPUCOR MISCELLANE PRN (09:52)
[2018-05-07] MEDS ORDERED: INSULIN PUMP BASAL RATES 1 EACH MISC MISCELLANE PRN (09:52)
[2018-05-07] MEDS ORDERED: INSULIN ASPART (NovoLOG) 100 UNIT/ML VIAL SQ PRN (09:52)
[2018-05-07] MEDS ORDERED: INSULIN PUMP TARGET GLUCOSE 1 EACH MISC MISCELLANE PRN (09:52)
[2018-05-07 11:46] LABS: Glucose,Whole Blood 468 mg/dL (75-99)
[2018-05-07] MEDS: INSULIN PUMP MEAL BOLUS 1 UNIT MISC MISCELLANE SCH ×3 (12:25→23:50)
--- NOTE | 2018-05-07 13:12 | P.CONS ---
History of Present Illness - Reason for Consult Consult date: 05/07/18 Medical management Requesting physician: Gail Marcus - History of Present Illness This is a 67-year-old male patient of Dr. Gibson. Patient presented for an elective minimally invasive decompression and fusion of L3 and L4. Patient presented for degenerative scoliosis with spinal stenosis and radiculopathy. Patient has a known past medical history of factor 5 blood disorder, diabetes mellitus which he has insulin pump, GERD, hyperlipidemia, hypertension, prostate disorder, renal disease, neuropathy and depression. Patient is currently postop day 1. Patient is currently resting in chair. Patient is having some discomfort. Blood sugars have remained elevated. Patient is managing through insulin pump including bolusing. IVs educator consulted to talk with patient and make sure orders are appropriate. At this time patient denies chest pain or shortness of breath. Patient denies nausea vomiting or diarrhea. Patient denies any urinary burning or frequency Review of Systems Please refer to HPI otherwise unremarkable Past Medical History Past Medical History: Blood Disorder, Diabetes Mellitus, GERD/Reflux, Hyperlipidemia, Hypertension, Neurologic Disorder, Prostate Disorder, Renal Disease Additional Past Medical History / Comment(s): neuropathy, back pain, sen shoulder and neck area pain, insulin pump. Factor V. pt states has 2 broken teeth with nerves exposed was told by dentist that he has an infection in teeth and wants to extract prior to procedure- advised pt to notify dr marcus to report infection and discuss care advice prior to procedure History of Any Multi-Drug Resistant Organisms: None Reported Past Surgical History: Heart Catheterization, Orthopedic Surgery Additional Past Surgical History / Comment(s): right knee cartilage, sen. carpal tunnel, right shoulder rotator cuff repair, lt foot with pins, lt wrist dequervain disease repair Past Anesthesia/Blood Transfusion Reactions: Motion Sickness Past Psychological History: Depression Smoking Status: Former smoker Past Alcohol Use History: None Reported Additional Past Alcohol Use History / Comment(s): smoked 25 years 3 ppd quit 1987 Past Drug Use History: None Reported - Past Family History Brother(s) Family Medical History: Deep Vein Thrombosis (DVT) Medications and Allergies Home Medications Medication Instructions Recorded Confirmed Type Amitriptyline HCl [Elavil] 75 mg PO HS 10/16/13 05/06/18 History Aspirin 81 mg PO DAILY 10/16/13 05/06/18 History Cholecalciferol [Vitamin D3] 2,000 unit PO DAILY 10/16/13 05/06/18 History Tamsulosin [Flomax] 0.4 mg PO HS 10/16/13 05/06/18 History Citalopram Hydrobromide 20 mg PO DAILY 01/20/18 05/06/18 History [Citalopram HBr] Insulin Aspart (For Pump) [NovoLOG 0.01 unit SQ-PUMP CONTINUOUS 01/20/18 History (For Pump)] Pantoprazole [Protonix] 40 mg PO BID 01/20/18 05/06/18 History rOPINIRole HCL [Requip] 0.5 mg PO HS 01/20/18 05/06/18 History traMADol HCl [Ultram] 50 mg PO TID PRN 01/20/18 05/06/18 History Metoprolol Tartrate [Lopressor] 12.5 mg PO [id number] 03/20/18 05/06/18 History metFORMIN HCL [Glucophage] 500 mg PO BID 03/20/18 05/06/18 History Atorvastatin [Lipitor] 40 mg PO DAILY 04/29/18 05/06/18 History Sodium Polystyrene Sulfon/Sorb 11.25 gm PO SA 04/29/18 05/06/18 History [SPS] Allergies Allergy/AdvReac Type Severity Reaction Status Date / Time No Known Allergies Allergy Verified 05/06/18 16:04 Physical Exam Vitals: Vital Signs Temp Pulse Pulse Resp BP BP Pulse Ox 05/07/18 07:22 98.5 F 68 16 98/63 92 L 05/07/18 01:12 98.5 F 85 16 121/65 92 L 05/07/18 00:00 85 16 05/06/18 20:05 74 72 16 05/06/18 19:42 97.9 F 74 16 122/63 93 L 05/06/18 18:45 72 117/73 05/06/18 18:30 70 117/73 05/06/18 18:15 70 134/64 05/06/18 18:00 70 135/53 05/06/18 17:45 70 159/70 05/06/18 17:30 72 139/64 05/06/18 17:15 98 F 72 12 139/64 99 05/06/18 16:54 68 16 118/57 95 05/06/18 16:39 70 16 117/56 99 05/06/18 16:24 69 16 135/64 99 05/06/18 16:09 70 16 125/57 100 05/06/18 15:56 98 F 70 14 99/50 99 Intake and Output 05/06/18 05/07/18 05/07/18 22:59 06:59 14:59 Intake Total 2575 1450 Output Total 400 700 Balance 2175 750 Intake: IV 950 Intake, IV Titration 525 800 Amount Sodium Chloride 0.9% 1, 525 600 000 ml @ 75 mls/hr IV . [id number] MILLY Rx#:[id number] ceFAZolin 3 gm In Sodium 200 Chloride 0.9% 100 ml @ 200 mls/hr IVPB Q8H MILLY Rx#:[id number] Oral 1100 650 Output: Urine 200 700 Estimated Blood Loss 200 Other: Voiding Method Urinal # Voids 1 Head normocephalic Neck supple Lungs clear to auscultation bilaterally no wheezing or crackles Heart regular rate and rhythm S1-S2, no rub or gallop Abdomen is soft nontender nondistended positive bowel sounds no hepatosplenomegaly Extremities no edema. Lower back just has some shadowing. Neuro alert and orientated to 3 Results CBC & Chem 7: 05/07/18 06:48 05/07/18 06:48 Labs: Abnormal Lab Results - Last 24 Hours (Table) 05/06/18 05/06/18 05/06/18 Range/Units 13:47 15:20 16:34 RBC (4.30-5.90) m/uL Hgb (13.0-17.5) gm/dL Hct (39.0-53.0) % BUN (9-20) mg/dL Glucose (74-99) mg/dL POC Glucose (mg/dL) 201 H 183 H 209 H (75-99) mg/dL 05/06/18 05/07/18 05/07/18 Range/Units 19:39 06:48 06:48 RBC 3.65 L (4.30-5.90) m/uL Hgb 11.8 L (13.0-17.5) gm/dL Hct 36.1 L (39.0-53.0) % BUN 25 H (9-20) mg/dL Glucose 347 H (74-99) mg/dL POC Glucose (mg/dL) 241 H (75-99) mg/dL 05/07/18 05/07/18 Range/Units 07:21 11:39 RBC (4.30-5.90) m/uL Hgb (13.0-17.5) gm/dL Hct (39.0-53.0) % BUN (9-20) mg/dL Glucose (74-99) mg/dL POC Glucose (mg/dL) 408 H 468 H (75-99) mg/dL Assessment and Plan Assessment: 1. Status post minimally invasive decompression and fusion of L3 to L4 for gender scoliosis spinal stenosis and radiculopathy with Dr. Marcus. 2. Urinary retention. Patient has known prostate disorder. Patient currently on Flomax. Patient having trouble with voiding since Pratt catheter was removed post surgery. IDC placed per surgical services 3. Diabetes mellitus with hyperglycemia. Patient having blood sugars in the 400. Patient does have insulin pump in which she is administrating self boluses. cosmetology educator at bedside to discuss orders for insulin pump. Patient is alert and oriented and instructed that he will tell nursing staff amount he is bolusing for blood sugar. Hemoglobin A1c has been ordered 4. History of factor V disorder 5. History of GERD 6. History of hyperlipidemia 7. History of essential hypertension Thank you for this consultation we will continue to follow patient closely throughout stay. DVT prophylaxis SCDs. GI prophylaxis Protonix Time with Patient: Greater than 30 (Greater than 60% of the total time spent in counseling and coordination of care. I performed an examination of the patient and discussed their management with the Nurse Practitioner. I have reviewed the Nurse Practitioner's notes and agree with the documented findings and plan of care)
[2018-05-07 16:38] LABS: Glucose,Whole Blood 444 mg/dL (75-99)
[2018-05-07] MEDS: TAMSULOSIN 0.4 MG CAP.ER.24H PO SCH (21:02)
[2018-05-07] MEDS: AMITRIPTYLINE HCL 25 MG TAB PO SCH (21:02)
[2018-05-07 21:29] LABS: Glucose,Whole Blood 366 mg/dL (75-99)
[2018-05-07 22:12] LABS: Hemoglobin A1C 8.3 % (4.0-6.0)
[2018-05-08 07:09] LABS: Glucose,Whole Blood 344 mg/dL (75-99)
[2018-05-08] MEDS: INSULIN PUMP MEAL BOLUS 1 UNIT MISC MISCELLANE SCH ×2 (07:30→12:20)
[2018-05-08] MEDS: LACTATED RINGERS 1,000 ML IV SCH (07:36)
[2018-05-08] MEDS: SODIUM CHLORIDE 0.9% 1,000 ML IV SCH ×3 (07:36→12:24)
[2018-05-08 07:40] LABS: Basophils % (A) 0 %; Eosinophils # (A) 0.1 k/uL (0-0.7); Eosinophils % (A) 1 %; HCT 33.2 % (39.0-53.0); HGB 11.1 gm/dL (13.0-17.5); Lymphocytes # (A) 1.1 k/uL (1.0-4.8); Lymphocytes % (A) 13 %; MCH 32.7 pg (25.0-35.0); MCHC 33.5 g/dL (31.0-37.0); MCV 97.6 fL (80.0-100.0); Mean Platelet Volume 7.4; Monocytes # (A) 0.5 k/uL (0-1.0); Monocytes % (A) 6 %; Neutrophils # (A) 7.1 k/uL (1.3-7.7); Neutrophils % (A) 80 %; Platelet Count 156 k/uL (150-450); RDW 13.4 % (11.5-15.5)
[2018-05-08] MEDS: metFORMIN 500 MG TAB PO SCH ×2 (07:45→20:29)
[2018-05-08] MEDS: METOPROLOL TARTRATE 12.5 MG TAB PO SCH (07:45)
[2018-05-08] MEDS: CALCIUM CARBONATE 500 MG CHEWABLE PO PRN ×2 (07:45→12:36)
[2018-05-08] MEDS: CITALOPRAM HYDROBROMIDE 20 MG TAB PO SCH (07:45)
[2018-05-08] MEDS: PANTOPRAZOLE 40 MG TABLET PO SCH ×2 (07:45→17:34)
[2018-05-08] MEDS: ASPIRIN 81 MG PO SCH (07:45)
[2018-05-08] MEDS: SENNOSIDES-DOCUSATE SODIUM 1 EACH TAB PO SCH (07:45)
[2018-05-08] MEDS: CHOLECALCIFEROL 1,000 UNIT TAB PO SCH (07:45)
[2018-05-08] MEDS: ATORVASTATIN 40 MG TAB PO SCH (07:45)
[2018-05-08 07:50] LABS: ALT 39 U/L (21-72); AST 55 U/L (17-59); Albumin 3.3 g/dL (3.5-5.0); Alkaline Phosphatase 51 U/L (38-126); Anion Gap 9 mmol/L; Blood Urea Nitrogen 17 mg/dL (9-20); Carbon Dioxide 22 mmol/L (22-30); Chloride 107 mmol/L (98-107); Glucose 318 mg/dL (74-99); Potassium 4.7 mmol/L (3.5-5.1); Sodium 138 mmol/L (137-145); Total Protein 5.8 g/dL (6.3-8.2)
--- NOTE | 2018-05-08 09:04 | P.PN ---
Progress Note - Text Progress Note Date: 05/08/18 Orthopedic Spine Patient is a pleasant 67-year-old male who is seen and examined at the bedside following posterior lateral decompression and fusion performed Friday. Patient states they are doing ok postsurgically. He feels his legs are doing well postoperatively. He continues to have some pain at the surgical sites at the lumbar spine. He has had difficulty with increasing mobility postoperatively. He has been able to sit at bedside chair one time. He is planning to work with physical therapy today to attempt ambulation. He's had some difficulty postoperatively with urinary retention. Pratt catheter was reinserted yesterday. We will plan to discontinue the Pratt catheter is morning to see if he is able to void on his own. He has not had a bowel movement postoperatively. He states he is currently experiencing some abdominal pain and has difficulty eating due to abdominal pain. He is not passing any gas. Currently does not complain of fever or chills. Patient states pain has been adequately controlled. Patient is planned to be discharged to [facility] rehabilitation facility at the time of discharge. Physical Exam Lumbar Fusion: Status post surgical day number 2 Patient is awake, alert, and oriented 3 Vital signs stable Good chest excursion with deep inspiration and expiration Abdomen soft with generalized tenderness and mild distention Dorsiflexion, plantarflexion, and extensor hallucis longus positive sustained bilaterally No signs or symptoms of DVT; no calf pain; pneumatic cuffs currently intact bilateral lower extremities Dressing is is removed during physical examination Incision sites show no evidence of erythema, purulence, or signs of infection; no active drainage Mild bruising over the right incision site Dressing is reapplied with nonstick Telfa and Tegaderm Neurovascularly intact bilaterally lower extremities Assessment: L3-4 minimally invasive posterior lateral decompression and fusion with transforaminal lumbar interbody fusion Low back pain Urinary retention 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 Ambulate as tolerated; work with Physical Therapy to increase mobilization 2. Continue pain control with IV and oral medications; we will begin weaning off IV medications in anticipation for discharge to rehabilitation facility 3. Dressing changed to Telfa and Tegaderm; patient may shower with dressing intact 4. Medical management can continue to manage patient for patient's other medical issues including type 1 diabetes, urinary retention, and constipation 5. We will continue to follow the patient closely; if patient is able to have some improvement in his mobility, patient is able to have a bowel movement, and is able to urinate on his own after continuation of Pratt catheter, patient will be clear for discharge to a rehabilitation facility tomorrow, 05/09/2018. Patient must be cleared for discharge by medicine prior to discharge from the hospital. Patient is cleared for discharge to [facility]. 6. We will plan to obtain x-ray of the abdomen to rule out post-stop ileus 7. We will plan for medicine to complete the med rec prior to discharge. Orthopedic spine will plan to prescribe narcotic pain medications. MAPS has been reviewed today, 05/08/2018, with an Overall Overdose Risk Score of 50. An "Opiod Start Talking" Forn has been signed by the patient and myself in place in the patient's chart. A prescription has been written for [place] 5 mg /325 mg 1-2 tabs every 6 hours as needed for pain, dispensed #56 8. Patient can follow-up with Yunior Robb PA-C or Dr. Yo Marcus at [facility] in 2-3 weeks following discharge
[2018-05-08 10:03] LABS: Appearance,Urine Clear (Clear); Bacteria,Urine Rare /hpf; Bilirubin,Urine Negative (Negative); Blood,Urine Small (Negative); Color,Urine Light Yellow; Glucose,Urine (UA) 4+ (Negative); Leukocyte Esterase,Urine Negative (Negative); Mucus,Urine Rare /hpf; Nitrite,Urine Negative (Negative); Protein,Urine Trace (Negative); RBC,Urine 2 /hpf (0-5); Specific Gravity,Urine 1.021 (1.001-1.035); Urobilinogen,Urine <2.0 mg/dL (<2.0); WBC,Urine 4 /hpf (0-5)
[2018-05-08] MEDS: TAMSULOSIN 0.4 MG CAP.ER.24H PO SCH ×2 (10:11→20:29)
[2018-05-08 10:14] LABS: Ketones,Urine 3+ (Negative)
--- NOTE | 2018-05-08 11:13 | XR ---
EXAMINATION TYPE: XR abdomen 2V DATE OF EXAM: 05/08/2018 COMPARISON: None INDICATION: Abdomen pain, distention, reflux and nausea TECHNIQUE: Single view abdomen FINDINGS: There is a normal bowel gas pattern. Air is present within the colon. Some fecal debris is present wi thin the colon. Small amount of nondilated small bowel loops containing air are present. No free air is evident. No suspicious differential air-fluid levels are present. Psoas margins as visualized are normal. No organomegaly is present. Postsurgical changes are within the lumbar spine. IMPRESSION: 1. Unremarkable Abdomen 2. No suspicious changes to suggest ileus or obstruction. 3. Mild fecal debris within the colon.
[2018-05-08 11:58] LABS: Glucose,Whole Blood 311 mg/dL (75-99)
--- NOTE | 2018-05-08 14:47 | P.PN ---
Subjective Progress Note Date: 05/08/18 This is a 67-year-old male patient of Dr. Gibson. Patient presented for an elective minimally invasive decompression and fusion of L3 and L4. Patient presented for degenerative scoliosis with spinal stenosis and radiculopathy. Patient has a known past medical history of factor 5 blood disorder, diabetes mellitus which he has insulin pump, GERD, hyperlipidemia, hypertension, prostate disorder, renal disease, neuropathy and depression. Patient is currently postop day 1. Patient is currently resting in chair. Patient is having some discomfort. Blood sugars have remained elevated. Patient is managing through insulin pump including bolusing. IVs educator consulted to talk with patient and make sure orders are appropriate. At this time patient denies chest pain or shortness of breath. Patient denies nausea vomiting or diarrhea. Patient denies any urinary burning or frequency On 05/08/2018 patient is currently resting in bed. Patient is still complaining of some reflux when laying down. Tums have been ordered. Patient also had Pratt catheter removed. Flomax was increased yesterday to twice a day. Patient is running low-grade temp at 99.1. Patient is complaining that he is having occasional cough will order chest x-ray and UA to rule out infection. Patient's blood sugar also remained very elevated at 300-400. Patient has been using his insulin pump. Discussed case with social services specialist. Also discussed case with Dr. Acharya endocrinologists in which patient sees. At this time Dr. Acharya recommending insulin pump be taken off patient and patient switched to long-acting insulin 24 units at night +8 units and sliding scale coverage with meals. Discussed with social services specialist. accounts payable coordinator at bedside removed patient's insulin pump and gave to . She denies chest pain. Patient denies nausea vomiting or diarrhea. Objective - Vital Signs Vital signs: Vital Signs Temp 98.3 F 05/08/18 07:00 Pulse 90 05/08/18 07:00 Resp 20 05/08/18 12:49 BP 173/67 05/08/18 07:00 Pulse Ox 95 05/08/18 07:00 Intake & Output 05/07/18 05/08/18 05/08/18 18:59 06:59 18:59 Intake Total 940 1505 Output Total 1950 2400 980 Balance -1010 -895 -980 Intake: Intake, IV Titration 775 Amount Sodium Chloride 0.9% 1, 675 000 ml @ 75 mls/hr IV . [id number] [facility] Rx#:[id number] ceFAZolin 3 gm In Sodium 100 Chloride 0.9% 100 ml @ 200 mls/hr IVPB Q8H [facility] Rx#:[id number] Oral 940 730 Output: Gastric Drainage 0 Urine 1950 2400 980 Uretheral (Pratt) 1950 490 Stool 0 Urine/Stool Mix 0 Emesis 0 Oral Regurgitation 0 Other 0 Other: Voiding Method Indwelling Catheter Indwelling Catheter Urinal # Voids 1 1 # Bowel Movements 0 - Exam Head normocephalic Neck supple Lungs clear to auscultation bilaterally no wheezing or crackles Heart regular rate and rhythm S1-S2, no rub or gallop Abdomen is soft nontender nondistended positive bowel sounds no hepatosplenomegaly Extremities no edema. Lower back just has some shadowing. Neuro alert and orientated to 3 - Labs CBC & Chem 7: 05/08/18 07:08 05/08/18 07:08 Labs: Abnormal Lab Results - Last 24 Hours (Table) 05/07/18 05/07/18 05/07/18 Range/Units 06:48 16:36 21:28 RBC (4.30-5.90) m/uL Hgb (13.0-17.5) gm/dL Hct (39.0-53.0) % Glucose (74-99) mg/dL POC Glucose (mg/dL) 444 H 366 H (75-99) mg/dL Hemoglobin A1c 8.3 H (4.0-6.0) % Total Protein (6.3-8.2) g/dL Albumin (3.5-5.0) g/dL Urine Protein (Negative) Urine Glucose (UA) (Negative) Urine Ketones (Negative) Urine Blood (Negative) Urine Bacteria (None) /hpf Urine Mucus (None) /hpf 05/08/18 05/08/18 05/08/18 Range/Units 07:07 07:08 07:08 RBC 3.40 L (4.30-5.90) m/uL Hgb 11.1 L (13.0-17.5) gm/dL Hct 33.2 L (39.0-53.0) % Glucose 318 H (74-99) mg/dL POC Glucose (mg/dL) 344 H (75-99) mg/dL Hemoglobin A1c (4.0-6.0) % Total Protein 5.8 L (6.3-8.2) g/dL Albumin 3.3 L (3.5-5.0) g/dL Urine Protein (Negative) Urine Glucose (UA) (Negative) Urine Ketones (Negative) Urine Blood (Negative) Urine Bacteria (None) /hpf Urine Mucus (None) /hpf 05/08/18 05/08/18 Range/Units 09:30 11:42 RBC (4.30-5.90) m/uL Hgb (13.0-17.5) gm/dL Hct (39.0-53.0) % Glucose (74-99) mg/dL POC Glucose (mg/dL) 311 H (75-99) mg/dL Hemoglobin A1c (4.0-6.0) % Total Protein (6.3-8.2) g/dL Albumin (3.5-5.0) g/dL Urine Protein Trace H (Negative) Urine Glucose (UA) 4+ H (Negative) Urine Ketones 3+ H (Negative) Urine Blood Small H (Negative) Urine Bacteria Rare H (None) /hpf Urine Mucus Rare H (None) /hpf Assessment and Plan Assessment: 1. Status post minimally invasive decompression and fusion of L3 to L4 for gender scoliosis spinal stenosis and radiculopathy with Dr. Marcus. 2. Urinary retention. Patient has known prostate disorder. Patient currently on Flomax. Patient having trouble with voiding since Pratt catheter was removed post surgery. IDC placed per surgical services. Patient will make his been increased to twice a day 3. Diabetes mellitus with hyperglycemia. Patient having blood sugars in the 400. Patient does have insulin pump in which she is administrating self boluses. accounts payable coordinator at bedside to discuss orders for insulin pump. Patient is alert and oriented and instructed that he will tell nursing staff amount he is bolusing for blood sugar. Patient's blood sugar remained elevated. Discussed with patient's strategy consultant Dr. Acharya. At this time Dr. Acharya recommending we stop insulin pump and start patient on Lantus 24 units +8 units of short acting with meals and sliding scale coverage. accounts payable coordinator at bedside insulin pump was removed and given to 4. History of factor V disorder 5. History of GERD 6. History of hyperlipidemia 7. History of essential hypertension 8. Abdominal pain with acid reflux. Tums has been added. Abdominal x-ray completed showing unremarkable abdomen have no suspicious changes suggest ileus or obstruction. Mild fecal debris within the colon 9. Low-grade fever. Chest x-ray and UA ordered Thank you for this consultation we will continue to follow patient closely throughout stay. DVT prophylaxis SCDs. GI prophylaxis Protonix I performed an examination of the patient and discussed their management with the Nurse Practitioner. I have reviewed the Nurse Practitioner's notes and agree with the documented findings and plan of care
[2018-05-08] MEDS: HYDROcodone/APAP 5-325MG 1 EACH TAB PO PRN ×2 (15:31→20:29)
--- NOTE | 2018-05-08 16:47 | XR ---
EXAMINATION TYPE: XR chest 2V DATE OF EXAM: 05/08/2018 COMPARISON: 04/24/2018 INDICATION: Cough with fever TECHNIQUE: Frontal and lateral views of the chest are obtained. FINDINGS: The heart size is normal. The pulmonary vasculature is normal. Small posterior pleural effusion is present on the lateral view likely at the right base. IMPRESSION: 1. Suspected posterior right pleural effusion. 2. No acute pulmonary process is otherwise evident.
[2018-05-08 16:57] LABS: Glucose,Whole Blood 371 mg/dL (75-99)
[2018-05-08] MEDS: INSULIN ASPART (NovoLOG) 100 UNIT/ML VIAL SQ SCH ×3 (17:32→21:26)
[2018-05-08 19:55] VITALS: RESP 16
[2018-05-08] MEDS: AMITRIPTYLINE HCL 25 MG TAB PO SCH (20:29)
[2018-05-08 20:42] LABS: Glucose,Whole Blood 407 mg/dL (75-99)
[2018-05-08] MEDS ORDERED: INSULIN DETEMIR (LEVEMIR) 100 UNIT/ML SYR SQ SCH (21:00)
[2018-05-09 06:55] LABS: Glucose,Whole Blood 231 mg/dL (75-99)
[2018-05-09] MEDS: INSULIN ASPART (NovoLOG) 100 UNIT/ML VIAL SQ SCH ×4 (07:34→12:43)
[2018-05-09] MEDS: METOPROLOL TARTRATE 12.5 MG TAB PO SCH (07:35)
[2018-05-09] MEDS: metFORMIN 500 MG TAB PO SCH (07:35)
[2018-05-09] MEDS: ASPIRIN 81 MG PO SCH (07:35)
[2018-05-09] MEDS: CITALOPRAM HYDROBROMIDE 20 MG TAB PO SCH (07:36)
[2018-05-09] MEDS: HYDROcodone/APAP 5-325MG 1 EACH TAB PO PRN ×2 (07:36→12:54)
[2018-05-09] MEDS: CHOLECALCIFEROL 1,000 UNIT TAB PO SCH (07:36)
[2018-05-09] MEDS: TAMSULOSIN 0.4 MG CAP.ER.24H PO SCH (07:36)
[2018-05-09] MEDS: PANTOPRAZOLE 40 MG TABLET PO SCH (07:36)
[2018-05-09] MEDS: ATORVASTATIN 40 MG TAB PO SCH (07:36)
[2018-05-09] MEDS: LACTATED RINGERS 1,000 ML IV SCH (07:38)
[2018-05-09] MEDS: SENNOSIDES-DOCUSATE SODIUM 1 EACH TAB PO SCH (07:45)
[2018-05-09 08:03] LABS: Basophils % (A) 0 %; Eosinophils # (A) 0.2 k/uL (0-0.7); Eosinophils % (A) 2 %; HGB 11.2 gm/dL (13.0-17.5); Lymphocytes # (A) 2.1 k/uL (1.0-4.8); Lymphocytes % (A) 23 %; MCH 32.7 pg (25.0-35.0); MCV 96.4 fL (80.0-100.0); Mean Platelet Volume 8.3; Monocytes # (A) 0.4 k/uL (0-1.0); Monocytes % (A) 5 %; Neutrophils # (A) 6.4 k/uL (1.3-7.7); Neutrophils % (A) 69 %; Platelet Count 162 k/uL (150-450); RBC 3.42 m/uL (4.30-5.90); RDW 13.4 % (11.5-15.5); WBC 9.3 k/uL (3.8-10.6)
[2018-05-09 08:21] LABS: ALT 32 U/L (21-72); AST 43 U/L (17-59); Albumin 3.4 g/dL (3.5-5.0); Alkaline Phosphatase 54 U/L (38-126); Anion Gap 8 mmol/L; Blood Urea Nitrogen 18 mg/dL (9-20); Calcium 9.1 mg/dL (8.4-10.2); Carbon Dioxide 26 mmol/L (22-30); Chloride 106 mmol/L (98-107); Glucose 263 mg/dL (74-99); Potassium 4.5 mmol/L (3.5-5.1); Sodium 140 mmol/L (137-145); Total Bilirubin 0.8 mg/dL (0.2-1.3)
--- NOTE | 2018-05-09 08:23 | P.PN ---
Subjective Progress Note Date: 05/09/18 This is a 67-year-old male who is status post posterior lateral decompression and fusion of L3-L4. Patient states that his pain is well controlled today and he has been up and walking. Patient states that he has been able to urinate on his own. Patient denies having a bowel movement, but states that he has not been eating very much due to acid reflux symptoms. Patient denies any new complaints today. Patient does not complain of fever or chills. Objective - Vital Signs Vital signs: Vital Signs Temp 98.1 F 05/09/18 07:00 Pulse 95 05/09/18 07:00 Resp 16 05/09/18 07:00 BP 168/65 05/09/18 07:00 Pulse Ox 97 05/09/18 07:00 Intake & Output 05/08/18 05/09/18 05/09/18 18:59 06:59 18:59 Intake Total 236 745 240 Output Total 1210 Balance -974 745 240 Intake: Intake, IV Titration 745 Amount Sodium Chloride 0.9% 1, 745 000 ml @ 75 mls/hr IV . [id number] [facility] Rx#:[id number] Oral 236 240 Output: Gastric Drainage 0 Urine 1210 Uretheral (Pratt) 490 Stool 0 Urine/Stool Mix 0 Emesis 0 Oral Regurgitation 0 Other 0 Other: Voiding Method Urinal # Voids 1 # Bowel Movements 0 - Exam Eye exam patient is resting comfortably in bed and is alert and oriented 3. Surgical dressing is clean, dry and intact. There is minimal swelling and no erythema. Patient has good range of motion of bilateral lower extremities. Sensation is intact. Calves are soft and nontender to palpation. Neurovascular status and circulatory status are intact. - Labs CBC & Chem 7: 05/09/18 07:29 05/09/18 07:29 Labs: Abnormal Lab Results - Last 24 Hours (Table) 05/08/18 05/08/18 05/08/18 Range/Units 09:30 11:42 16:54 RBC (4.30-5.90) m/uL Hgb (13.0-17.5) gm/dL Hct (39.0-53.0) % POC Glucose (mg/dL) 311 H 371 H (75-99) mg/dL Urine Protein Trace H (Negative) Urine Glucose (UA) 4+ H (Negative) Urine Ketones 3+ H (Negative) Urine Blood Small H (Negative) Urine Bacteria Rare H (None) /hpf Urine Mucus Rare H (None) /hpf 05/08/18 05/09/18 05/09/18 Range/Units 20:40 06:53 07:29 RBC 3.42 L (4.30-5.90) m/uL Hgb 11.2 L (13.0-17.5) gm/dL Hct 33.0 L (39.0-53.0) % POC Glucose (mg/dL) 407 H 231 H (75-99) mg/dL Urine Protein (Negative) Urine Glucose (UA) (Negative) Urine Ketones (Negative) Urine Blood (Negative) Urine Bacteria (None) /hpf Urine Mucus (None) /hpf Assessment and Plan (1) Lumbar spinal stenosis Current Visit: Yes Status: Acute Code(s): M48.061 - SPINAL STENOSIS, LUMBAR REGION WITHOUT NEUROGENIC NOEL SNOMED Code(s): 07272437 (2) S/P laminectomy Current Visit: Yes Status: Acute Code(s): Z98.890 - OTHER SPECIFIED POSTPROCEDURAL STATES SNOMED Code(s): 084559446 Plan: X-ray of the abdomen shows: 1. Unremarkable abdomen. 2. No suspicious changes to suggest ileus or obstruction. 3. Mild fecal debris within the colon. Chest x-ray shows: 1. Suspected posterior right pleural effusion. 2. No acute pulmonary processes is otherwise evident. 1. Continue routine postoperative care and pain control. Patient has remained afebrile. 2. Appreciate input from medicine. 3. Patient is to be weightbearing as tolerated and continue working with physical therapy. 4. Patient is awaiting discharge to rehab. Patient's Pratt has been removed and patient is able to urinate without difficulty. Patient has not yet had a bowel movement. Patient may be discharged to rehab when cleared medically.
[2018-05-09 10:55] LABS: Glucose,Whole Blood 192 mg/dL (75-99)
[2018-05-09] MEDS: SODIUM CHLORIDE 0.9% 1,000 ML IV SCH (11:03)
[2018-05-09] MEDS ORDERED: SODIUM POLYSTYRENE SULFONATE 15 GM/60 ML BOTTLE PO SCH (12:00)
--- NOTE | 2018-05-09 13:57 | P.DS ---
Providers Date of admission: 05/06/18 08:51 Expected date of discharge: 05/09/18 Attending physician: Gail Marcus Consults: 05/06/18 15:40 Consult Physician Routine Consulting Provider: Ej Gibson Consult Reason/Comments: Medical management Do you want consulting provider notified?: Yes Primary care physician: Ej Gibson - Discharge Diagnosis(es) (1) Lumbar spinal stenosis Current Visit: Yes Status: Acute (2) S/P laminectomy Current Visit: Yes Status: Acute Hospital Course: This is a 67 year-old male with a known history of degenerative scoliosis of the lumbar spine worst at L3/4, disc degeneration, severe spinal stenosis, disc protrusion and herniation along with lower extremity radiculopathy. Patient is seen and evaluated as an outpatient by Dr. Marcus. Patient's symptoms did not improve with conservative treatment. Surgical and non-surgical options were discussed and patient elects to proceed with posterior lateral decompression and fusion. Patient is admitted to [facility] on 05/06/2018 for posterior lateral decompression and fusion. The procedure is performed without complication or sequelae. Labs and vital signs are stable on day of discharge. Patient did experience an episode of urinary retention and this has now resolved. Internal medicine also adjusted the patient's diabetic medication regimen. Patient has been walking with physical therapy. On day of discharge the patient's dressing is clean, dry and intact. There is minimal swelling and no erythema. Patient has good range of motion of bilateral lower extremities and sensation is intact. Calves are soft and nontender to palpation. Full foot and ankle motion bilaterally. Neurovascular status and circulatory status are intact. Patient is discharged to rehab in good condition. Please see med rec for accurate list of home medications. Plan - Discharge Summary Discharge Rx Participant: Yes New Discharge Prescriptions: New Hydrocodone/Acetaminophen [[place] 5-325] 1 - 2 each PO Q6HR PRN #56 tab PRN Reason: Pain No Action Aspirin 81 mg PO DAILY Tamsulosin [Flomax] 0.4 mg PO HS Cholecalciferol [Vitamin D3] 2,000 unit PO DAILY Amitriptyline HCl [Elavil] 75 mg PO HS traMADol HCl [Ultram] 50 mg PO TID PRN PRN Reason: Pain rOPINIRole HCL [Requip] 0.5 mg PO HS Pantoprazole [Protonix] 40 mg PO BID Insulin Aspart (For Pump) [NovoLOG (For Pump)] 0.01 unit SQ-PUMP CONTINUOUS Citalopram Hydrobromide [Citalopram HBr] 20 mg PO DAILY metFORMIN HCL [Glucophage] 500 mg PO BID Metoprolol Tartrate [Lopressor] 12.5 mg PO AC-BRKFST Sodium Polystyrene Sulfon/Sorb [SPS] 11.25 gm PO SA Atorvastatin [Lipitor] 40 mg PO DAILY Discharge Medication List Amitriptyline HCl [Elavil] 75 mg PO HS 10/16/13 [History] Aspirin 81 mg PO DAILY 10/16/13 [History] Cholecalciferol [Vitamin D3] 2,000 unit PO DAILY 10/16/13 [History] Tamsulosin [Flomax] 0.4 mg PO HS 10/16/13 [History] Citalopram Hydrobromide [Citalopram HBr] 20 mg PO DAILY 01/20/18 [History] Insulin Aspart (For Pump) [NovoLOG (For Pump)] 0.01 unit SQ-PUMP CONTINUOUS [History] Pantoprazole [Protonix] 40 mg PO BID 01/20/18 [History] rOPINIRole HCL [Requip] 0.5 mg PO HS 01/20/18 [History] traMADol HCl [Ultram] 50 mg PO TID PRN 01/20/18 [History] Metoprolol Tartrate [Lopressor] 12.5 mg PO AC-BRKFST 03/20/18 [History] metFORMIN HCL [Glucophage] 500 mg PO BID 03/20/18 [History] Atorvastatin [Lipitor] 40 mg PO DAILY 04/29/18 [History] Sodium Polystyrene Sulfon/Sorb [SPS] 11.25 gm PO SA 04/29/18 [History] Hydrocodone/Acetaminophen [[place] 5-325] 1 - 2 each PO Q6HR PRN #56 tab 05/08/18 [Rx] Follow up Appointment(s)/Referral(s): Yunior Robb PAC [PHYSICIAN [employer] ARCHITECT] - 05/22/18 1:00 pm (Patient may follow-up with Yunior Robb PA-C or Dr. Yo Marcus at [facility] in 2-3 weeks following discharge. ) Activity/Diet/Wound Care/Special Instructions: 1. Patient may shower with Tegaderm dressing intact. 2. Patient may remove Tegaderm dressing in 3 days and shower without a dressing at that time. 3. Patient should keep Steri-Strips intact and allow them to fall off naturally. 4. Patient should refrain from driving until at least after their first follow- up appointment in the office. 5. Patient should avoid excessive bending, twisting, and lifting; no lifting greater than 10 pounds 6. Take medications as prescribed 7. Do not soak in tub Discharge Disposition: TRANSFER TO SNF/ECF
[2018-05-09 14:11] VITALS: BP 117/66; PULSE 82; TEMP 98.3
--- NOTE | 2018-05-09 14:15 | P.PN ---
Subjective Progress Note Date: 05/09/18 This is a 67-year-old male patient of Dr. Gibson. Patient presented for an elective minimally invasive decompression and fusion of L3 and L4. Patient presented for degenerative scoliosis with spinal stenosis and radiculopathy. Patient has a known past medical history of factor 5 blood disorder, diabetes mellitus which he has insulin pump, GERD, hyperlipidemia, hypertension, prostate disorder, renal disease, neuropathy and depression. Patient is currently postop day 1. Patient is currently resting in chair. Patient is having some discomfort. Blood sugars have remained elevated. Patient is managing through insulin pump including bolusing. IVs educator consulted to talk with patient and make sure orders are appropriate. At this time patient denies chest pain or shortness of breath. Patient denies nausea vomiting or diarrhea. Patient denies any urinary burning or frequency On 05/08/2018 patient is currently resting in bed. Patient is still complaining of some reflux when laying down. Tums have been ordered. Patient also had Pratt catheter removed. Flomax was increased yesterday to twice a day. Patient is running low-grade temp at 99.1. Patient is complaining that he is having occasional cough will order chest x-ray and UA to rule out infection. Patient's blood sugar also remained very elevated at 300-400. Patient has been using his insulin pump. Discussed case with certified adaptive physical educator. Also discussed case with Dr. Acharya endocrinologists in which patient sees. At this time Dr. Acharya recommending insulin pump be taken off patient and patient switched to long-acting insulin 24 units at night +8 units and sliding scale coverage with meals. Discussed with certified adaptive physical educator. peer educator at bedside removed patient's insulin pump and gave to . She denies chest pain. Patient denies nausea vomiting or diarrhea. On 05/09/2018 patient has been cleared for discharge from with a surgical standpoint. Patient has been afebrile. Chest x-ray revealed no pneumonia UA without infection. Patient's blood sugar improved. Patient remains off insulin pump. Instructed patient to keep insulin pump off and maintain on current regimen at this time. She denies chest pain or shortness of breath. Denies diarrhea. Denies any urinary burning or frequency. [facility] will be [facility] Objective - Vital Signs Vital signs: Vital Signs Temp 98.3 F 05/09/18 14:10 Pulse 82 05/09/18 14:10 Resp 16 05/09/18 14:10 BP 117/66 05/09/18 14:10 Pulse Ox 97 05/09/18 14:10 Intake & Output 05/08/18 05/09/18 05/09/18 18:59 06:59 18:59 Intake Total 236 745 476 Output Total 1210 Balance -974 745 476 Intake: Intake, IV Titration 745 Amount Sodium Chloride 0.9% 1, 745 000 ml @ 75 mls/hr IV . [id number] [facility] Rx#:[id number] Oral 236 476 Output: Gastric Drainage 0 Urine 1210 Uretheral (Pratt) 490 Stool 0 Urine/Stool Mix 0 Emesis 0 Oral Regurgitation 0 Other 0 Other: Voiding Method Urinal # Voids 1 # Bowel Movements 0 - Exam Head normocephalic Neck supple Lungs clear to auscultation bilaterally no wheezing or crackles Heart regular rate and rhythm S1-S2, no rub or gallop Abdomen is soft nontender nondistended positive bowel sounds no hepatosplenomegaly Extremities no edema. Lower back just has some shadowing. Neuro alert and orientated to 3 - Labs CBC & Chem 7: 05/09/18 07:29 05/09/18 07:29 Labs: Abnormal Lab Results - Last 24 Hours (Table) 05/08/18 05/08/18 05/09/18 Range/Units 16:54 20:40 06:53 RBC (4.30-5.90) m/uL Hgb (13.0-17.5) gm/dL Hct (39.0-53.0) % Glucose (74-99) mg/dL POC Glucose (mg/dL) 371 H 407 H 231 H (75-99) mg/dL Total Protein (6.3-8.2) g/dL Albumin (3.5-5.0) g/dL 05/09/18 05/09/18 05/09/18 Range/Units 07:29 07:29 10:53 RBC 3.42 L (4.30-5.90) m/uL Hgb 11.2 L (13.0-17.5) gm/dL Hct 33.0 L (39.0-53.0) % Glucose 263 H (74-99) mg/dL POC Glucose (mg/dL) 192 H (75-99) mg/dL Total Protein 6.0 L (6.3-8.2) g/dL Albumin 3.4 L (3.5-5.0) g/dL Assessment and Plan Assessment: 1. Status post minimally invasive decompression and fusion of L3 to L4 for gender scoliosis spinal stenosis and radiculopathy with Dr. Marcus. 2. Urinary retention. Patient has known prostate disorder. Patient currently on Flomax. Patient having trouble with voiding since Pratt catheter was removed post surgery. IDC placed per surgical services. Patient will make his been increased to twice a day.The catheter has been removed and patient has been able to void independently. 3. Diabetes mellitus with hyperglycemia. Patient having blood sugars in the 400. Patient does have insulin pump in which she is administrating self boluses. peer educator at bedside to discuss orders for insulin pump. Patient is alert and oriented and instructed that he will tell nursing staff amount he is bolusing for blood sugar. Patient's blood sugar remained elevated. Discussed with patient's dish room worker Dr. Acharya. At this time Dr. Acharya recommending we stop insulin pump and start patient on Lantus 24 units +8 units of short acting with meals and sliding scale coverage. peer educator at bedside insulin pump was removed and given to . Blood sugars have improved. Maintain on current regime at rehab. 4. History of factor V disorder 5. History of GERD 6. History of hyperlipidemia 7. History of essential hypertension 8. Abdominal pain with acid reflux. Tums has been added. Abdominal x-ray completed showing unremarkable abdomen have no suspicious changes suggest ileus or obstruction. Mild fecal debris within the colon 9. Low-grade fever. Chest x-ray completed showing a suspected posterior right pleural effusion. No acute pulmonary process is otherwise evident. UA negative for infection. Afebrile for 24 hours Thank you for this consultation we will continue to follow patient closely throughout stay. DVT prophylaxis SCDs. GI prophylaxis Protonix I performed an examination of the patient and discussed their management with the Nurse Practitioner. I have reviewed the Nurse Practitioner's notes and agree with the documented findings and plan of care
== END 2018-05-09 15:00 | DRG 455 ==
LOC: 2ORMAIN 08:51 → 4SSUR 17:10
PROVIDERS: ADMIT Orthopaedic Surgery Orthopaedic Surgery of the Spine; ATTEND Orthopaedic Surgery Orthopaedic Surgery of the Spine
PROC: 0SG0071 Fusion of Lumbar Vertebral Joint with Autologous Tissue Substitute, Posterior Approach, Posterior Column, Open Approach (ICD-10-PCS; principal; 2018-05-06 10:40)
PROC: 30233H0 Transfusion of Autologous Whole Blood into Peripheral Vein, Percutaneous Approach (ICD-10-PCS; principal; 2018-05-06 10:40)
PROC: 0ST20ZZ Resection of Lumbar Vertebral Disc, Open Approach (ICD-10-PCS; principal; 2018-05-06 10:40)
PROC: 0SG00AJ Fusion of Lumbar Vertebral Joint with Interbody Fusion Device, Posterior Approach, Anterior Column, Open Approach (ICD-10-PCS; principal; 2018-05-06 10:40)
PROC: 07DS3ZZ Extraction of Vertebral Bone Marrow, Percutaneous Approach (ICD-10-PCS; principal; 2018-05-06 10:40)
DX: M51.16 Intervertebral disc disorders with radiculopathy, lumbar region (principal); E10.40 Type 1 diabetes mellitus with diabetic neuropathy, unspecified; E10.65 Type 1 diabetes mellitus with hyperglycemia; E78.5 Hyperlipidemia, unspecified; I10 Essential (primary) hypertension; K21.9 Gastro-esophageal reflux disease without esophagitis; K59.03 Drug induced constipation; M41.86 Other forms of scoliosis, lumbar region; M48.061 Spinal stenosis, lumbar region without neurogenic claudication; N42.9 Disorder of prostate, unspecified; Z96.41 Presence of insulin pump (external) (internal); T40.2X5A Adverse effect of other opioids, initial encounter; Z79.4 Long term (current) use of insulin; Z79.82 Long term (current) use of aspirin; Z79.899 Other long term (current) drug therapy; Z87.891 Personal history of nicotine dependence
CPT/HCPCS: 71046; 72100; 74019; 80048; 80053; 81001; 83036; 85025; 86850; 86900; 86901

== ENCOUNTER 2018-11-09 08:49 | Inpatient (IN) | payer MEDICARE, OTHER ==
[2018-11-09] MEDS ORDERED: SODIUM CHLORIDE 0.9% 1,000 ML IV STA ×3 (08:54→12:19)
[2018-11-09] MEDS ORDERED: INSULIN REGULAR 100 UNIT/ML VIAL IV ONE (08:55)
[2018-11-09 08:57] LABS: Glucose,Whole Blood >600 mg/dL (75-99)
--- NOTE | 2018-11-09 08:58 | ED ---
Recheck HPI - General Chief Complaint: Recheck/Abnormal Lab/Rx Stated Complaint: hyperglycemia Time Seen by Provider: 11/09/18 08:50 Source: patient, EMS, RN notes reviewed Mode of arrival: EMS Limitations: altered mental status - History of Present Illness Initial Comments: Is a 68-year-old male with a history of type 1 insulin-dependent diabetes as we ll as early dementia who apparently did not refill his insulin pump yesterday. Was found today to be lethargic with polyuria polydipsia and found have a markedly elevated glucose greater than 500. He was brought in by EMS for evaluation. He complains some nausea he did have some vomiting he also complains some mild epigastric pain. He currently denies any nausea at this time. No focal loss of function to his upper or lower extremities no trauma reported no fevers reported. No other modifying factors - Related Data Home Medications Medication Instructions Recorded Confirmed Amitriptyline HCl [Elavil] 75 mg PO HS 10/16/13 11/09/18 Aspirin 81 mg PO DAILY 10/16/13 11/09/18 Cholecalciferol [Vitamin D3 (25 2,000 unit PO DAILY 10/16/13 11/09/18 Mcg = 1000 Iu)] Citalopram Hydrobromide 20 mg PO DAILY 01/20/18 11/09/18 [Citalopram HBr] Pantoprazole [Protonix] 40 mg PO BID 01/20/18 11/09/18 metFORMIN HCL [Glucophage] 500 mg PO BID 03/20/18 11/09/18 Atorvastatin [Lipitor] 40 mg PO DAILY 04/29/18 11/09/18 Sodium Polystyrene Sulfon/Sorb 11.25 gm PO DIRECTED 04/29/18 11/09/18 [SPS] Insulin Aspart (For Pump) [NovoLOG 0.01 unit SQ-PUMP CONTINUOUS 11/09/18 11/09/18 (For Pump)] Metoprolol Succinate [Toprol XL] 25 mg PO DAILY 11/09/18 11/09/18 Tamsulosin [Flomax] 0.4 mg PO DAILY 11/09/18 11/09/18 traMADol HCL [Ultram] 50 mg PO TID 11/09/18 11/09/18 Previous Rx's Medication Instructions Recorded rOPINIRole HCL [Requip] 0.5 mg PO HS 30 Days #30 tablet 05/09/18 Allergies Allergy/AdvReac Type Severity Reaction Status Date / Time No Known Allergies Allergy Verified 11/09/18 09:05 Review of Systems ROS Statement: Those systems with pertinent positive or pertinent negative responses have been documented in the HPI. ROS Other: All systems not noted in ROS Statement are negative. Past Medical History Past Medical History: Blood Disorder, Diabetes Mellitus, GERD/Reflux, Hyperlipidemia, Hypertension, Neurologic Disorder, Prostate Disorder, Renal Disease Additional Past Medical History / Comment(s): neuropathy, back pain, sen shoulder and neck area pain, insulin pump. Factor V. pt states has 2 broken te eth with nerves exposed was told by dentist that he has an infection in teeth and wants to extract prior to procedure- advised pt to notify dr loza to report infection and discuss care advice prior to procedure History of Any Multi-Drug Resistant Organisms: None Reported Past Surgical History: Heart Catheterization, Orthopedic Surgery Additional Past Surgical History / Comment(s): right knee cartilage, sen. carpal tunnel, right shoulder rotator cuff repair, lt foot with pins, lt wrist dequervain disease repair Past Anesthesia/Blood Transfusion Reactions: Motion Sickness Past Psychological History: Depression Smoking Status: Former smoker Past Alcohol Use History: None Reported Past Drug Use History: None Reported - Past Family History Brother(s) Family Medical History: Deep Vein Thrombosis (DVT) General Exam - General Exam Comments Initial Comments: This is a well-developed well-nourished but lethargic male who is awake alert oriented 3 Limitations: altered mental status General appearance: alert, in no apparent distress Head exam: Present: atraumatic, normocephalic, normal inspection Eye exam: Present: normal appearance, PERRL, EOMI. Absent: scleral icterus, conjunctival injection, periorbital swelling ENT exam: Present: mucous membranes dry Neck exam: Present: normal inspection. Absent: tenderness, meningismus, lymphadenopathy Respiratory exam: Present: normal lung sounds bilaterally. Absent: respiratory distress, wheezes, rales, rhonchi, stridor Cardiovascular Exam: Present: normal rhythm, tachycardia, normal heart sounds. Absent: systolic murmur, diastolic murmur, rubs, gallop, clicks GI/Abdominal exam: Present: soft, normal bowel sounds. Absent: distended, tenderness, guarding, rebound, rigid, bruit, pulsatile mass Extremities exam: Present: normal inspection, full ROM, normal capillary refill. Absent: tenderness, pedal edema, joint swelling, calf tenderness Back exam: Present: normal inspection Neurological exam: Present: alert, oriented X3, CN II-XII intact Psychiatric exam: Present: normal affect, normal mood Skin exam: Present: warm, dry, intact, normal color. Absent: rash Course Vital Signs 11/09/18 11/09/18 08:50 11:18 Temperature 98.3 F Pulse Rate 91 109 H Respiratory 17 16 Rate Blood Pressure 132/47 180/76 O2 Sat by Pulse 97 95 Oximetry Medical Decision Making - Medical Decision Making I did reevaluate patient several occasions he is getting some improvement he does demonstrate DKA dehydration are clear elevated blood sugar as well as renal failure/acute kidney injury. He does have hyperkalemia in conjunction with this. I did discuss the case with Dr. Gibson the patient will be admitted for continued inpatient treatment. - Lab Data Result diagrams: 11/09/18 08:56 11/09/18 08:56 Lab Results 11/09/18 11/09/18 11/09/18 Range/Units 08:52 08:56 08:56 WBC 13.7 H (3.8-10.6) k/uL RBC 3.83 L (4.30-5.90) m/uL Hgb 12.4 L (13.0-17.5) gm/dL Hct 39.6 (39.0-53.0) % MCV 103.5 H (80.0-100.0) fL MCH 32.5 (25.0-35.0) pg MCHC 31.4 (31.0-37.0) g/dL RDW 14.4 (11.5-15.5) % Plt Count 213 (150-450) k/uL Neutrophils % 82 % Lymphocytes % 11 % Monocytes % 6 % Eosinophils % 1 % Basophils % 0 % Neutrophils # 11.2 H (1.3-7.7) k/uL Lymphocytes # 1.5 (1.0-4.8) k/uL Monocytes # 0.9 (0-1.0) k/uL Eosinophils # 0.1 (0-0.7) k/uL Basophils # 0.0 (0-0.2) k/uL Hypochromasia Marked Macrocytosis Slight Sodium 133 L (137-145) mmol/L Potassium 6.0 H (3.5-5.1) mmol/L Chloride 97 L (98-107) mmol/L Carbon Dioxide 12 L (22-30) mmol/L Anion Gap 24 mmol/L BUN 37 H (9-20) mg/dL Creatinine 2.04 H (0.66-1.25) mg/dL Est GFR (CKD-EPI)AfAm 38 (>60 ml/min/1.73 sqM) Est GFR (CKD-EPI)NonAf 33 (>60 ml/min/1.73 sqM) Glucose 728 H* (74-99) mg/dL POC Glucose (mg/dL) >600 H (75-99) mg/dL POC Glu Senior [employer] Consultant ID Catrachita Vasquez Calcium 9.7 (8.4-10.2) mg/dL Magnesium 1.8 (1.6-2.3) mg/dL Total Bilirubin 0.9 (0.2-1.3) mg/dL AST 25 (17-59) U/L ALT 24 (21-72) U/L Alkaline Phosphatase 69 (38-126) U/L Creatine Kinase 98 (55-170) U/L Total Protein 6.6 (6.3-8.2) g/dL Albumin 4.0 (3.5-5.0) g/dL Lipase 27 (23-300) U/L Urine Color Urine Appearance (Clear) Urine pH (5.0-8.0) Ur Specific [place] (1.001-1.035) Urine Protein (Negative) Urine Glucose (UA) (Negative) Urine Ketones (Negative) Urine Blood (Negative) Urine Nitrite (Negative) Urine Bilirubin (Negative) Urine Urobilinogen (<2.0) mg/dL Ur Leukocyte Esterase (Negative) Acetone, Qual Positive (Negative) 11/09/18 11/09/18 11/09/18 Range/Units 10:17 11:16 11:22 WBC (3.8-10.6) k/uL RBC (4.30-5.90) m/uL Hgb (13.0-17.5) gm/dL Hct (39.0-53.0) % MCV (80.0-100.0) fL MCH (25.0-35.0) pg MCHC (31.0-37.0) g/dL RDW (11.5-15.5) % Plt Count (150-450) k/uL Neutrophils % % Lymphocytes % % Monocytes % % Eosinophils % % Basophils % % Neutrophils # (1.3-7.7) k/uL Lymphocytes # (1.0-4.8) k/uL Monocytes # (0-1.0) k/uL Eosinophils # (0-0.7) k/uL Basophils # (0-0.2) k/uL Hypochromasia Macrocytosis Sodium (137-145) mmol/L Potassium (3.5-5.1) mmol/L Chloride (98-107) mmol/L Carbon Dioxide (22-30) mmol/L Anion Gap mmol/L BUN (9-20) mg/dL Creatinine (0.66-1.25) mg/dL Est GFR (CKD-EPI)AfAm (>60 ml/min/1.73 sqM) Est GFR (CKD-EPI)NonAf (>60 ml/min/1.73 sqM) Glucose (74-99) mg/dL POC Glucose (mg/dL) >600 H 600 H (75-99) mg/dL POC Glu Senior [employer] Consultant ID Jose Guillory Rachel Calcium (8.4-10.2) mg/dL Magnesium (1.6-2.3) mg/dL Total Bilirubin (0.2-1.3) mg/dL AST (17-59) U/L ALT (21-72) U/L Alkaline Phosphatase (38-126) U/L Creatine Kinase (55-170) U/L Total Protein (6.3-8.2) g/dL Albumin (3.5-5.0) g/dL Lipase (23-300) U/L Urine Color Light Yellow Urine Appearance Clear (Clear) Urine pH 5.0 (5.0-8.0) Ur Specific [place] 1.014 (1.001-1.035) Urine Protein Negative (Negative) Urine Glucose (UA) 4+ H (Negative) Urine Ketones 2+ H (Negative) Urine Blood Negative (Negative) Urine Nitrite Negative (Negative) Urine Bilirubin Negative (Negative) Urine Urobilinogen <2.0 (<2.0) mg/dL Ur Leukocyte Esterase Negative (Negative) Acetone, Qual (Negative) - EKG Data -: EKG Interpreted by Me EKG shows normal: sinus rhythm (Sinus tachycardia rate of 111. We'll 172 catholic 98 QT since QTC 340/[address] configuration) Critical Care Time Critical Care Time: Yes Critical Care Time: 39 minutes of critical care time which includes initial presentation with history physical labs x-rays multiple reevaluation the patient responsive therapy discuss with the patient family regarding findings discussion with the admitting physician admission orders and documentation of the above Disposition Clinical Impression: Diabetic ketoacidosis, Dehydration, Acute kidney injury, Hyperkalemia Disposition: ADMITTED IP TO THIS [facility] Condition: Serious Referrals: Ej Gibson MD [Primary Care Provider] - 1-2 days
[2018-11-09 09:23] LABS: Basophils % (A) 0 %; Eosinophils # (A) 0.1 k/uL (0-0.7); Eosinophils % (A) 1 %; HCT 39.6 % (39.0-53.0); HGB 12.4 gm/dL (13.0-17.5); Hypochromasia Marked; Lymphocytes # (A) 1.5 k/uL (1.0-4.8); Lymphocytes % (A) 11 %; MCH 32.5 pg (25.0-35.0); MCHC 31.4 g/dL (31.0-37.0); MCV 103.5 fL (80.0-100.0); Macrocytosis Slight; Mean Platelet Volume 8.5; Monocytes # (A) 0.9 k/uL (0-1.0); Monocytes % (A) 6 %; Neutrophils # (A) 11.2 k/uL (1.3-7.7); Neutrophils % (A) 82 %; Platelet Count 213 k/uL (150-450); RBC 3.83 m/uL (4.30-5.90); RDW 14.4 % (11.5-15.5); WBC 13.7 k/uL (3.8-10.6)
[2018-11-09 09:27] LABS: ALT 24 U/L (21-72); AST 25 U/L (17-59); African American GFR (CKD) 38 (>60 ml/min/1.73 sqM); Alkaline Phosphatase 69 U/L (38-126); Anion Gap 24 mmol/L; Blood Urea Nitrogen 37 mg/dL (9-20); Calcium 9.7 mg/dL (8.4-10.2); Carbon Dioxide 12 mmol/L (22-30); Chloride 97 mmol/L (98-107); Creatine Kinase 98 U/L (55-170); Magnesium 1.8 mg/dL (1.6-2.3); Sodium 133 mmol/L (137-145); Total Bilirubin 0.9 mg/dL (0.2-1.3); Total Protein 6.6 g/dL (6.3-8.2)
[2018-11-09] MEDS ORDERED: Magnesium Replacement Protocol 1 EACH MISC MISCELLANE PRN (09:40)
[2018-11-09] MEDS ORDERED: Potassium Replacement Protocol 1 EACH MISC MISCELLANE PRN (09:40)
[2018-11-09 09:43] LABS: Glucose 728 mg/dL (74-99)
[2018-11-09] MEDS: SODIUM CHLORIDE 0.9% 1,000 ML IV SCH ×6 (10:10→21:17)
[2018-11-09] MEDS: INSULIN REGULAR 100 UNIT in SODIUM CHLORIDE 0.9% 100 ML IV SCH ×2 (10:10→18:02)
[2018-11-09 10:19] LABS: Glucose,Whole Blood >600 mg/dL (75-99)
[2018-11-09] MEDS ORDERED: DEXTROSE 5% IN WATER 1,000 ML with SODIUM BICARB (1 MEQ/ML) 50 ML IV SCH (10:30)
[2018-11-09 11:17] LABS: Glucose,Whole Blood 600 mg/dL (75-99)
[2018-11-09 11:27] LABS: Appearance,Urine Clear (Clear); Bilirubin,Urine Negative (Negative); Blood,Urine Negative (Negative); Color,Urine Light Yellow; Glucose,Urine (UA) 4+ (Negative); Leukocyte Esterase,Urine Negative (Negative); Nitrite,Urine Negative (Negative); Protein,Urine Negative (Negative); Specific Gravity,Urine 1.014 (1.001-1.035); Urobilinogen,Urine <2.0 mg/dL (<2.0)
--- NOTE | 2018-11-09 11:49 | XR ---
EXAMINATION TYPE: XR chest 1V portable DATE OF EXAM: 11/09/2018 COMPARISON: 05/08/2018 INDICATION: Pain TECHNIQUE: Single frontal view of the chest is obtained. FINDINGS: The heart size is normal. The pulmonary vasculature is normal. The lungs are clear. IMPRESSION: 1. No acute pulmonary process.
[2018-11-09 12:01] LABS: Ketones,Urine 2+ (Negative)
[2018-11-09 12:23] LABS: Glucose,Whole Blood 542 mg/dL (75-99)
[2018-11-09] MEDS ORDERED: SODIUM POLYSTYRENE SULFONATE 15 GM/60 ML BOTTLE PO SCH (12:30)
[2018-11-09] MEDS ORDERED: INSULIN REGULAR 100 UNIT in SODIUM CHLORIDE 0.9% 100 ML IV SCH (12:30)
[2018-11-09 12:32] LABS: VBG PH 7.24 (7.31-7.41)
[2018-11-09 13:29] LABS: Glucose,Whole Blood 425 mg/dL (75-99)
[2018-11-09 13:56] LABS: Glucose,Whole Blood 359 mg/dL (75-99)
[2018-11-09 14:39] LABS: Glucose,Whole Blood 344 mg/dL (75-99)
[2018-11-09] MEDS: ONDANSETRON 4 MG/2 ML VIAL IVP PRN (14:55)
--- NOTE | 2018-11-09 15:09 | P.HPIM ---
History of Present Illness H&P Date: 11/09/18 This is a 68-year-old male patient who presented with complaints of elevated blood sugar with nausea and vomiting. Patient reports that he forgot to fill his insulin pump yesterday and went with family reunion. According to ER report patient was found to be lethargic with an elevated glucose greater than 500. Patient has past medical history of type 1 insulin-dependent diabetes which she follows with endocrine and maintained on an insulin pump. Additional medical history includes factor V disorder, diabetes mellitus, GERD, hyperlipidemia, hypertension, prostate disorder, chronic renal disease in which he does follow with nephrology, and neuropathy. Patient reports that he feels like he's been getting more forgetful lately diabetes education has been consulted. Insulin pump has been disconnected. Patient started on insulin drip for DKA protocol. Urine was positive for ketones. Anion Gap 24 CO2 12. Acetone positive. Repeat electrolytes ordered for 1600. At this time patient is nauseated Zofran has been ordered. Patient denies any chest pain or shortness of breath. Patient denies any urinary burning or frequency. Patient denies any recent illness prior to episode of elevated blood sugar Review of Systems Please refer to HPI otherwise unremarkable Past Medical History Past Medical History: Blood Disorder, Coronary Artery Disease (CAD), Dementia, Diabetes Mellitus, Eye Disorder, GERD/Reflux, Hearing Disorder / Deafness, Hyperlipidemia, Hypertension, Neurologic Disorder, Osteoarthritis (OA), Prostate Disorder, Renal Disease, Syncope Additional Past Medical History / Comment(s): IDDM type I with insulin pump, bilateral legs/feet/arms and hand neuropathy, chronic renal disease, difficulty swallowing, RLS, factor V, early dementia, BPH, bilateral tinnitis, R eye retinal bleeds x2, chronic low back pain with bilateral sciatica which is worse on the right side, bilateral shoulder and cervical pain, History of Any Multi-Drug Resistant Organisms: None Reported Past Surgical History: Adenoidectomy, Back Surgery, Heart Catheterization, Orthopedic Surgery, Tonsillectomy Additional Past Surgical History / Comment(s): Lumbar laminectomy, R knee cartildge surgery, bilateral carpal tunnel released, L wrist dequevain surgery, R rotator cuff repair, L foot pins and plates, EGD, colonoscopy, R eye laser eye surgery for retinal bleeds, bilateral cataract removals/lens implants. Past Anesthesia/Blood Transfusion Reactions: Motion Sickness Past Psychological History: Depression Additional Psychological History / Comment(s): Pt resides with his spouse and their adult son. Pt uses a walker prn. He drives. He is currently managing his own medications but admits this is getting more difficult. Smoking Status: Former smoker Past Alcohol Use History: None Reported Additional Past Alcohol Use History / Comment(s): Pt started smoking in 1962 and quit in 1987 Past Drug Use History: None Reported - Past Family History Brother(s) Family Medical History: Deep Vein Thrombosis (DVT) Mother Additional Family Medical History / Comment(s): Mother had palsey Father Family Medical History: COPD, Myocardial Infarction (NM) Additional Family Medical History / Comment(s): Father of COPD/NM at the age of 72 yrs. Medications and Allergies Home Medications Medication Instructions Recorded Confirmed Type Amitriptyline HCl [Elavil] 75 mg PO HS 10/16/13 11/09/18 History Aspirin 81 mg PO DAILY 10/16/13 11/09/18 History Cholecalciferol [Vitamin D3 (25 2,000 unit PO DAILY 10/16/13 11/09/18 History Mcg = 1000 Iu)] Citalopram Hydrobromide 20 mg PO DAILY 01/20/18 11/09/18 History [Citalopram HBr] Pantoprazole [Protonix] 40 mg PO BID 01/20/18 11/09/18 History metFORMIN HCL [Glucophage] 500 mg PO BID 03/20/18 11/09/18 History Atorvastatin [Lipitor] 40 mg PO DAILY 04/29/18 11/09/18 History Sodium Polystyrene Sulfon/Sorb 11.25 gm PO DIRECTED 04/29/18 11/09/18 History [SPS] rOPINIRole HCL [Requip] 0.5 mg PO HS 30 Days #30 tablet 05/09/18 11/09/18 Rx Insulin Aspart (For Pump) [NovoLOG 0.01 unit SQ-PUMP CONTINUOUS 11/09/18 11/09/18 History (For Pump)] Metoprolol Succinate [Toprol XL] 25 mg PO DAILY 11/09/18 11/09/18 History Tamsulosin [Flomax] 0.4 mg PO DAILY 11/09/18 11/09/18 History traMADol HCL [Ultram] 50 mg PO TID 11/09/18 11/09/18 History Allergies Allergy/AdvReac Type Severity Reaction Status Date / Time No Known Allergies Allergy Verified 11/09/18 09:05 Physical Exam Vitals: Vital Signs Temp Pulse Resp BP Pulse Ox 11/09/18 13:00 105 H 18 164/69 99 11/09/18 12:30 112 H 30 H 174/106 99 11/09/18 12:25 111 H 16 174/106 98 11/09/18 12:00 110 H 21 172/65 97 11/09/18 11:30 113 H 28 H 180/76 99 11/09/18 11:18 109 H 16 180/76 95 11/09/18 08:50 98.3 F 91 17 132/47 97 Intake and Output 11/08/18 11/09/18 11/09/18 22:59 06:59 14:59 Intake Total 46.132 Balance 46.132 Intake: Intake, IV Titration 46.132 Amount Insulin Regular 100 unit 46.132 In Sodium Chloride 0.9% 100 ml @ 0.1 UNITS/KG/HR 12.14 mls/hr IV .Q8H20M [facility] Rx#:[id number] Other: Weight 120.202 kg Head normocephalic Neck supple Lungs clear to auscultation bilaterally no wheezing or crackles Heart regular rate and rhythm S1-S2, no rub or gallop Abdomen is soft nontender nondistended positive bowel sounds no hepatosplenomegaly Extremities no edema Neuro alert and orientated to 3 Results CBC & Chem 7: 11/09/18 08:56 11/09/18 12:22 Labs: Abnormal Lab Results - Last 24 Hours (Table) 11/09/18 11/09/18 11/09/18 Range/Units 08:52 08:56 08:56 WBC 13.7 H (3.8-10.6) k/uL RBC 3.83 L (4.30-5.90) m/uL Hgb 12.4 L (13.0-17.5) gm/dL MCV 103.5 H (80.0-100.0) fL Neutrophils # 11.2 H (1.3-7.7) k/uL VBG pH (7.31-7.41) VBG HCO3 (24-28) mmol/L Sodium 133 L (137-145) mmol/L Potassium 6.0 H (3.5-5.1) mmol/L Chloride 97 L (98-107) mmol/L Carbon Dioxide 12 L (22-30) mmol/L BUN 37 H (9-20) mg/dL Creatinine 2.04 H (0.66-1.25) mg/dL Glucose 728 H* (74-99) mg/dL POC Glucose (mg/dL) >600 H (75-99) mg/dL Urine Glucose (UA) (Negative) Urine Ketones (Negative) 11/09/18 11/09/18 11/09/18 Range/Units 10:17 11:16 11:22 WBC (3.8-10.6) k/uL RBC (4.30-5.90) m/uL Hgb (13.0-17.5) gm/dL MCV (80.0-100.0) fL Neutrophils # (1.3-7.7) k/uL VBG pH (7.31-7.41) VBG HCO3 (24-28) mmol/L Sodium (137-145) mmol/L Potassium (3.5-5.1) mmol/L Chloride (98-107) mmol/L Carbon Dioxide (22-30) mmol/L BUN (9-20) mg/dL Creatinine (0.66-1.25) mg/dL Glucose (74-99) mg/dL POC Glucose (mg/dL) >600 H 600 H (75-99) mg/dL Urine Glucose (UA) 4+ H (Negative) Urine Ketones 2+ H (Negative) 11/09/18 11/09/18 11/09/18 Range/Units 12:21 12:22 12:22 WBC (3.8-10.6) k/uL RBC (4.30-5.90) m/uL Hgb (13.0-17.5) gm/dL MCV (80.0-100.0) fL Neutrophils # (1.3-7.7) k/uL VBG pH 7.24 L (7.31-7.41) VBG HCO3 17 L (24-28) mmol/L Sodium (137-145) mmol/L Potassium (3.5-5.1) mmol/L Chloride (98-107) mmol/L Carbon Dioxide (22-30) mmol/L BUN (9-20) mg/dL Creatinine (0.66-1.25) mg/dL Glucose 523 H* (74-99) mg/dL POC Glucose (mg/dL) 542 H (75-99) mg/dL Urine Glucose (UA) (Negative) Urine Ketones (Negative) 11/09/18 11/09/18 11/09/18 Range/Units 13:27 13:54 14:29 WBC (3.8-10.6) k/uL RBC (4.30-5.90) m/uL Hgb (13.0-17.5) gm/dL MCV (80.0-100.0) fL Neutrophils # (1.3-7.7) k/uL VBG pH (7.31-7.41) VBG HCO3 (24-28) mmol/L Sodium (137-145) mmol/L Potassium (3.5-5.1) mmol/L Chloride (98-107) mmol/L Carbon Dioxide (22-30) mmol/L BUN (9-20) mg/dL Creatinine (0.66-1.25) mg/dL Glucose (74-99) mg/dL POC Glucose (mg/dL) 425 H 359 H 344 H (75-99) mg/dL Urine Glucose (UA) (Negative) Urine Ketones (Negative) Thrombosis Risk Factor Assmnt - Choose All That Apply Any of the Below Risk Factors Present?: Yes Each Factor Represents 1 point: Obesity (BMI >25) Other Risk Factors: Yes Each Risk Factor Represents 2 Points: Age 61-74 years Each Risk Factor Represents 3 Points: Family history of DVT/PE Other congenital or acquired thrombophilia - If yes, enter type in comment: No Thrombosis Risk Factor Assessment Total Risk Factor Score: 6 Thrombosis Risk Factor Assessment Level: High Risk Assessment and Plan Assessment: 1. Diabetic ketoacidosis with blood sugar is elevated greater than 500. Patient started on insulin drip. 2. Acute kidney injury with hyperkalemia. Creatinine elevated 2.04 and bun 37 [place] [id number]. 3. Type 1 diabetes mellitus. Patient normally follows with endocrinology. Maintain on insulin pump insulin pump has been disconnected 4. History of factor V disorder 5. History of hyperlipidemia. Maintained on statin 6. History of coronary artery disease 7. History of chronic renal disease stage III. Patient does follow with nephrology services 8. History of neuropathy 9. History of lumbar laminectomy 10. History of depression 11. History of GERD 12. History of hearing disorder 13. History of chronic back pain Essential hypertension DVT prophylaxis heparin. GI prophylaxis Protonix Time with Patient: Greater than 30 (Greater than 60% of the total time spent in counseling and coordination of care. I performed an examination of the patient and discussed their management with the Nurse Practitioner. I have reviewed the Nurse Practitioner's notes and agree with the documented findings and plan of care)
[2018-11-09 15:42] LABS: Glucose,Whole Blood 368 mg/dL (75-99)
[2018-11-09 16:21] LABS: Phosphorus 1.9 mg/dL (2.5-4.5)
[2018-11-09 17:16] LABS: Glucose,Whole Blood 366 mg/dL (75-99)
[2018-11-09] MEDS: traMADol 50 MG TAB PO SCH ×2 (18:07→20:07)
[2018-11-09 18:55] LABS: Glucose,Whole Blood 191 mg/dL (75-99)
[2018-11-09 19:38] LABS: Glucose,Whole Blood 186 mg/dL (75-99)
[2018-11-09] MEDS: AMITRIPTYLINE HCL 25 MG TAB PO SCH (20:07)
[2018-11-09] MEDS: HEPARIN SODIUM,PORCINE 5,000 UNIT/ML 1 ML VIAL SQ SCH (20:07)
[2018-11-09] MEDS: PANTOPRAZOLE 40 MG TABLET PO SCH (20:07)
[2018-11-09 20:15] LABS: Potassium 4.3 mmol/L (3.5-5.1)
[2018-11-09 20:37] LABS: Glucose,Whole Blood 177 mg/dL (75-99)
[2018-11-09] MEDS ORDERED: INSULIN DETEMIR (LEVEMIR) 100 UNIT/ML SYR SQ SCH (21:00)
[2018-11-09] MEDS: INSULIN ASPART (NovoLOG) 100 UNIT/ML VIAL SQ SCH (21:17)
[2018-11-09 21:18] LABS: Glucose,Whole Blood 137 mg/dL (75-99)
[2018-11-10 06:34] LABS: Glucose,Whole Blood 361 mg/dL (75-99)
[2018-11-10 06:41] LABS: Basophils % (A) 0 %; Eosinophils % (A) 0 %; HGB 11.1 gm/dL (13.0-17.5); Lymphocytes # (A) 1.7 k/uL (1.0-4.8); Lymphocytes % (A) 13 %; MCH 31.9 pg (25.0-35.0); MCHC 32.6 g/dL (31.0-37.0); Mean Platelet Volume 7.9; Monocytes # (A) 0.4 k/uL (0-1.0); Monocytes % (A) 3 %; Neutrophils # (A) 10.9 k/uL (1.3-7.7); Neutrophils % (A) 83 %; Platelet Count 203 k/uL (150-450); RBC 3.47 m/uL (4.30-5.90); RDW 14.5 % (11.5-15.5); WBC 13.2 k/uL (3.8-10.6)
[2018-11-10 06:45] LABS: MCV 97.9 fL (80.0-100.0)
[2018-11-10 06:59] LABS: Calcium 8.7 mg/dL (8.4-10.2); Magnesium 1.8 mg/dL (1.6-2.3); Potassium 5.1 mmol/L (3.5-5.1)
[2018-11-10] MEDS: INSULIN ASPART (NovoLOG) 100 UNIT/ML VIAL SQ SCH ×7 (07:04→20:10)
[2018-11-10 07:07] LABS: Glucose,Whole Blood 332 mg/dL (75-99)
[2018-11-10] MEDS: ONDANSETRON 4 MG/2 ML VIAL IVP PRN ×2 (07:08→20:10)
[2018-11-10] MEDS: CITALOPRAM HYDROBROMIDE 20 MG TAB PO SCH (09:17)
[2018-11-10] MEDS: PANTOPRAZOLE 40 MG TABLET PO SCH ×2 (09:17→20:08)
[2018-11-10] MEDS: METOPROLOL SUCCINATE (ER) 25 MG TAB.ER.24H PO SCH (09:17)
[2018-11-10] MEDS: ASPIRIN 81 MG PO SCH (09:17)
[2018-11-10] MEDS: ATORVASTATIN 40 MG TAB PO SCH (09:17)
[2018-11-10] MEDS: CHOLECALCIFEROL 1,000 UNIT TAB PO SCH (09:17)
[2018-11-10] MEDS: TAMSULOSIN 0.4 MG CAP.ER.24H PO SCH (09:17)
[2018-11-10] MEDS: traMADol 50 MG TAB PO SCH ×3 (09:18→20:08)
[2018-11-10] MEDS: HEPARIN SODIUM,PORCINE 5,000 UNIT/ML 1 ML VIAL SQ SCH ×2 (09:18→20:08)
--- NOTE | 2018-11-10 09:49 | P.PN ---
Subjective Progress Note Date: 11/10/18 This is a 68-year-old male patient who presented with complaints of elevated blood sugar with nausea and vomiting. Patient reports that he forgot to fill his insulin pump yesterday and went with family reunion. According to ER report patient was found to be lethargic with an elevated glucose greater than 500. Patient has past medical history of type 1 insulin-dependent diabetes which she follows with endocrine and maintained on an insulin pump. Additional medical history includes factor V disorder, diabetes mellitus, GERD, hyperlipidemia, hypertension, prostate disorder, chronic renal disease in which he does follow with nephrology, and neuropathy. Patient reports that he feels like he's been getting more forgetful lately diabetes education has been consulted. Insulin pump has been disconnected. Patient started on insulin drip for DKA protocol. Urine was positive for ketones. Anion Gap 24 CO2 12. Acetone positive. Repeat electrolytes ordered for 1600. At this time patient is nauseated Zofran has been ordered. Patient denies any chest pain or shortness of breath. Patient denies any urinary burning or frequency. Patient denies any recent illness prior to episode of elevated blood sugar On 11/10/2018 patient's alert and oriented 3. Patient was taken off insulin drip last night transition to long-acting and sliding scale coverage. At this time patient reports improvement with his nausea. Patient denies any chest pain or shortness of breath. Patient denies any diarrhea. Patient denies any urinary burning or frequency Objective - Vital Signs Vital signs: Vital Signs Temp 98.9 F 11/10/18 08:00 Pulse 80 11/10/18 08:00 Resp 17 11/10/18 08:00 BP 149/76 11/10/18 08:00 Pulse Ox 98 11/10/18 08:00 Intake & Output 11/09/18 11/10/18 11/10/18 18:59 06:59 18:59 Intake Total 99.568 Output Total 300 975 Balance -200.432 -975 Weight 120.202 kg 122.2 kg Intake: Intake, IV Titration 99.568 Amount Insulin Regular 100 unit 99.568 In Sodium Chloride 0.9% 100 ml @ 0.1 UNITS/KG/HR 12.14 mls/hr IV .Q8H20M [facility] Rx#:[id number] Oral 0 Output: Urine 300 975 Other: Voiding Method Urinal # Voids 2 2 - Exam Head normocephalic Neck supple Lungs clear to auscultation bilaterally no wheezing or crackles Heart regular rate and rhythm S1-S2, no rub or gallop Abdomen is soft nontender nondistended positive bowel sounds no hepatosplenomegaly Extremities no edema Neuro alert and orientated to 3 - Labs CBC & Chem 7: 11/10/18 05:44 11/10/18 05:44 Labs: Abnormal Lab Results - Last 24 Hours (Table) 11/09/18 11/09/18 11/09/18 Range/Units 10:17 11:16 11:22 WBC (3.8-10.6) k/uL RBC (4.30-5.90) m/uL Hgb (13.0-17.5) gm/dL Hct (39.0-53.0) % Neutrophils # (1.3-7.7) k/uL VBG pH (7.31-7.41) VBG HCO3 (24-28) mmol/L Sodium (137-145) mmol/L Carbon Dioxide (22-30) mmol/L BUN (9-20) mg/dL Creatinine (0.66-1.25) mg/dL Glucose (74-99) mg/dL POC Glucose (mg/dL) >600 H 600 H (75-99) mg/dL Phosphorus (2.5-4.5) mg/dL Urine Glucose (UA) 4+ H (Negative) Urine Ketones 2+ H (Negative) 11/09/18 11/09/18 11/09/18 Range/Units 12:21 12:22 12:22 WBC (3.8-10.6) k/uL RBC (4.30-5.90) m/uL Hgb (13.0-17.5) gm/dL Hct (39.0-53.0) % Neutrophils # (1.3-7.7) k/uL VBG pH 7.24 L (7.31-7.41) VBG HCO3 17 L (24-28) mmol/L Sodium (137-145) mmol/L Carbon Dioxide (22-30) mmol/L BUN (9-20) mg/dL Creatinine (0.66-1.25) mg/dL Glucose 523 H* (74-99) mg/dL POC Glucose (mg/dL) 542 H (75-99) mg/dL Phosphorus (2.5-4.5) mg/dL Urine Glucose (UA) (Negative) Urine Ketones (Negative) 11/09/18 11/09/18 11/09/18 Range/Units 13:27 13:54 14:29 WBC (3.8-10.6) k/uL RBC (4.30-5.90) m/uL Hgb (13.0-17.5) gm/dL Hct (39.0-53.0) % Neutrophils # (1.3-7.7) k/uL VBG pH (7.31-7.41) VBG HCO3 (24-28) mmol/L Sodium (137-145) mmol/L Carbon Dioxide (22-30) mmol/L BUN (9-20) mg/dL Creatinine (0.66-1.25) mg/dL Glucose (74-99) mg/dL POC Glucose (mg/dL) 425 H 359 H 344 H (75-99) mg/dL Phosphorus (2.5-4.5) mg/dL Urine Glucose (UA) (Negative) Urine Ketones (Negative) 11/09/18 11/09/18 11/09/18 Range/Units 15:38 15:46 17:10 WBC (3.8-10.6) k/uL RBC (4.30-5.90) m/uL Hgb (13.0-17.5) gm/dL Hct (39.0-53.0) % Neutrophils # (1.3-7.7) k/uL VBG pH (7.31-7.41) VBG HCO3 (24-28) mmol/L Sodium (137-145) mmol/L Carbon Dioxide (22-30) mmol/L BUN 38 H (9-20) mg/dL Creatinine 1.54 H (0.66-1.25) mg/dL Glucose 313 H (74-99) mg/dL POC Glucose (mg/dL) 368 H 366 H (75-99) mg/dL Phosphorus 1.9 L (2.5-4.5) mg/dL Urine Glucose (UA) (Negative) Urine Ketones (Negative) 11/09/18 11/09/18 11/09/18 Range/Units 18:53 19:35 19:51 WBC (3.8-10.6) k/uL RBC (4.30-5.90) m/uL Hgb (13.0-17.5) gm/dL Hct (39.0-53.0) % Neutrophils # (1.3-7.7) k/uL VBG pH (7.31-7.41) VBG HCO3 (24-28) mmol/L Sodium (137-145) mmol/L Carbon Dioxide (22-30) mmol/L BUN (9-20) mg/dL Creatinine (0.66-1.25) mg/dL Glucose (74-99) mg/dL POC Glucose (mg/dL) 191 H 186 H (75-99) mg/dL Phosphorus 2.1 L (2.5-4.5) mg/dL Urine Glucose (UA) (Negative) Urine Ketones (Negative) 11/09/18 11/09/18 11/09/18 Range/Units 19:51 20:35 21:17 WBC (3.8-10.6) k/uL RBC (4.30-5.90) m/uL Hgb (13.0-17.5) gm/dL Hct (39.0-53.0) % Neutrophils # (1.3-7.7) k/uL VBG pH (7.31-7.41) VBG HCO3 (24-28) mmol/L Sodium (137-145) mmol/L Carbon Dioxide (22-30) mmol/L BUN 34 H (9-20) mg/dL Creatinine 1.28 H (0.66-1.25) mg/dL Glucose 174 H (74-99) mg/dL POC Glucose (mg/dL) 177 H 137 H (75-99) mg/dL Phosphorus (2.5-4.5) mg/dL Urine Glucose (UA) (Negative) Urine Ketones (Negative) 11/10/18 11/10/18 11/10/18 Range/Units 05:44 05:44 06:32 WBC 13.2 H (3.8-10.6) k/uL RBC 3.47 L (4.30-5.90) m/uL Hgb 11.1 L (13.0-17.5) gm/dL Hct 34.0 L (39.0-53.0) % Neutrophils # 10.9 H (1.3-7.7) k/uL VBG pH (7.31-7.41) VBG HCO3 (24-28) mmol/L Sodium 134 L (137-145) mmol/L Carbon Dioxide 19 L (22-30) mmol/L BUN 30 H (9-20) mg/dL Creatinine (0.66-1.25) mg/dL Glucose 347 H (74-99) mg/dL POC Glucose (mg/dL) 361 H (75-99) mg/dL Phosphorus (2.5-4.5) mg/dL Urine Glucose (UA) (Negative) Urine Ketones (Negative) 11/10/18 Range/Units 07:05 WBC (3.8-10.6) k/uL RBC (4.30-5.90) m/uL Hgb (13.0-17.5) gm/dL Hct (39.0-53.0) % Neutrophils # (1.3-7.7) k/uL VBG pH (7.31-7.41) VBG HCO3 (24-28) mmol/L Sodium (137-145) mmol/L Carbon Dioxide (22-30) mmol/L BUN (9-20) mg/dL Creatinine (0.66-1.25) mg/dL Glucose (74-99) mg/dL POC Glucose (mg/dL) 332 H (75-99) mg/dL Phosphorus (2.5-4.5) mg/dL Urine Glucose (UA) (Negative) Urine Ketones (Negative) Assessment and Plan Assessment: 1. Diabetic ketoacidosis with blood sugar is elevated greater than 500. Patient started on insulin drip. Anion Gap Improving to 6 and CO2 25. Patient transitioned to subcu insulin. Patient maintained on 35 units subcu insulin nightly +5 units and sliding scale coverage with meals 2. Acute kidney injury with hyperkalemia. Creatinine elevated 2.04 and bun 37. Creatinine improving to 1.22 bun 30. Potassium 5.1 3. Type 1 diabetes mellitus. Patient normally follows with endocrinology. Maintain on insulin pump insulin pump has been disconnected 4. History of factor V disorder 5. History of hyperlipidemia. Maintained on statin 6. History of coronary artery disease 7. History of chronic renal disease stage III. Patient does follow with [place] [facility] 8. History of neuropathy 9. History of lumbar laminectomy 10. History of depression 11. History of GERD 12. History of hearing disorder 13. History of chronic back pain 14. Essential hypertension DVT prophylaxis heparin. GI prophylaxis Protonix I performed an examination of the patient and discussed their management with the Nurse Practitioner. I have reviewed the Nurse Practitioner's notes and agree with the documented findings and plan of care
[2018-11-10 11:53] VITALS: BMI 36.5
--- NOTE | 2018-11-10 12:09 | P.NPCON ---
History of Present Illness - Reason for Consult acute renal failure - History of Present Illness Reason for consultation: Acute kidney injury on chronic kidney disease History of present illness: Patient is a 68-year-old male seen in renal consultation for acute kidney injury on chronic kidney disease. Patient has chronic kidney disease stage III with baseline creatinine near 1.2 secondary to chronic interstitial nephritis from chronic nonsteroidal use. Creatinine was 2.04 on admission and is down to 1.22 today. Patient presented to the hospital with hyperglycemia. Patient states he went for a family reunion on Friday morning but forgot to add insulin to his insulin pump. He went the entire day without insulin. When he got home Friday night he developed persistent vomiting and came to the hospital. His blood sugar was greater than 700. He was started on an insulin drip and is now back on subcu insulin. He is also receiving IV fluids. Oral intake is gradually improving. Admits to good urine output. No hematuria or dysuria. Denies use of nonsteroidals. No family history of renal disease. No chest pain or shortness of breath. No edema. Vital signs are stable. General: The patient appeared well nourished and normally developed. HEENT: Head exam is unremarkable. Neck is without jugular venous distension. LUNGS: Lungs are clear to auscultation and percussion. Breath sounds decreased. HEART: Rate and Rhythm are regular. First and second heart sounds normal. No murmurs, rubs or gallops. ABDOMEN: Abdominal exam reveals normal bowel sounds. Non-tender and non- distended. No evidence of peritonitis. EXTREMITITES: No clubbing, cyanosis, or edema. Past Medical History Past Medical History: Blood Disorder, Coronary Artery Disease (CAD), Dementia, Diabetes Mellitus, Eye Disorder, GERD/Reflux, Hearing Disorder / Deafness, Hyperlipidemia, Hypertension, Neurologic Disorder, Osteoarthritis (OA), Prostate Disorder, Renal Disease, Syncope Additional Past Medical History / Comment(s): IDDM type I with insulin pump, bilateral legs/feet/arms and hand neuropathy, chronic renal disease, difficulty swallowing, RLS, factor V, early dementia, BPH, bilateral tinnitis, R eye retinal bleeds x2, chronic low back pain with bilateral sciatica which is worse on the right side, bilateral shoulder and cervical pain, History of Any Multi-Drug Resistant Organisms: None Reported Past Surgical History: Adenoidectomy, Back Surgery, Heart Catheterization, Orthopedic Surgery, Tonsillectomy Additional Past Surgical History / Comment(s): Lumbar laminectomy, R knee cartildge surgery, bilateral carpal tunnel released, L wrist dequevain surgery, R rotator cuff repair, L foot pins and plates, EGD, colonoscopy, R eye laser eye surgery for retinal bleeds, bilateral cataract removals/lens implants. Past Anesthesia/Blood Transfusion Reactions: Motion Sickness Past Psychological History: Depression Additional Psychological History / Comment(s): Pt resides with his spouse and their adult son. Pt uses a walker prn. He drives. He is currently managing his own medications but admits this is getting more difficult. Smoking Status: Former smoker Past Alcohol Use History: None Reported Additional Past Alcohol Use History / Comment(s): Pt started smoking in 1962 and quit in 1987 Past Drug Use History: None Reported - Past Family History Brother(s) Family Medical History: Deep Vein Thrombosis (DVT) Mother Additional Family Medical History / Comment(s): Mother had palsey Father Family Medical History: COPD, Myocardial Infarction (OK) Additional Family Medical History / Comment(s): Father of COPD/OK at the age of 72 yrs. Medications and Allergies Home Medications Medication Instructions Recorded Confirmed Type Amitriptyline HCl [Elavil] 75 mg PO HS 10/16/13 11/09/18 History Aspirin 81 mg PO DAILY 10/16/13 11/09/18 History Cholecalciferol [Vitamin D3 (25 2,000 unit PO DAILY 10/16/13 11/09/18 History Mcg = 1000 Iu)] Citalopram Hydrobromide 20 mg PO DAILY 01/20/18 11/09/18 History [Citalopram HBr] Pantoprazole [Protonix] 40 mg PO BID 01/20/18 11/09/18 History metFORMIN HCL [Glucophage] 500 mg PO BID 03/20/18 11/09/18 History Atorvastatin [Lipitor] 40 mg PO DAILY 04/29/18 11/09/18 History Sodium Polystyrene Sulfon/Sorb 11.25 gm PO DIRECTED 04/29/18 11/09/18 History [SPS] rOPINIRole HCL [Requip] 0.5 mg PO HS 30 Days #30 tablet 05/09/18 11/09/18 Rx Insulin Aspart (For Pump) [NovoLOG 0.01 unit SQ-PUMP CONTINUOUS 11/09/18 History (For Pump)] Metoprolol Succinate [Toprol XL] 25 mg PO DAILY 11/09/18 11/09/18 History Tamsulosin [Flomax] 0.4 mg PO DAILY 11/09/18 11/09/18 History traMADol HCL [Ultram] 50 mg PO TID 11/09/18 11/09/18 History Allergies Allergy/AdvReac Type Severity Reaction Status Date / Time No Known Allergies Allergy Verified 11/09/18 09:05 Physical Exam Vitals: Vital Signs Temp Pulse Pulse Resp BP BP Pulse Ox 11/10/18 08:00 98.9 F 80 17 149/76 98 11/10/18 03:27 92 18 11/10/18 03:26 98.0 F 92 18 159/70 96 11/10/18 00:00 98.2 F 95 16 105/47 95 11/09/18 20:00 98.3 F 87 18 124/60 95 11/09/18 16:00 99.8 F H 97 18 139/63 11/09/18 13:00 105 H 18 164/69 99 11/09/18 12:30 112 H 30 H 174/106 99 11/09/18 12:25 111 H 16 174/106 98 Intake and Output 11/09/18 11/10/18 11/10/18 22:59 06:59 14:59 Intake Total 53.436 100 Output Total 425 850 Balance -371.934 -850 100 Intake: Intake, IV Titration 53.436 Amount Insulin Regular 100 unit 53.436 In Sodium Chloride 0.9% 100 ml @ 0.1 UNITS/KG/HR 12.14 mls/hr IV .Q8H20M [facility] Rx#:[id number] Oral 100 Output: Urine 425 850 Other: Voiding Method Urinal Urinal # Voids 1 2 Weight 122.2 kg 122.2 kg Results - Lab Results Most recent lab results Calcium 8.7 mg/dL (8.4-10.2) 11/10/18 05:44 Phosphorus 2.1 mg/dL (2.5-4.5) L 11/09/18 19:51 Magnesium 1.8 mg/dL (1.6-2.3) 11/10/18 05:44 11/10/18 05:44 11/10/18 05:44 Assessment and Plan Plan: Assessment: 1. Acute kidney injury mostly prerenal secondary to intravascular volume depletion secondary to hyperglycemia. Creatinine was 2.04 on admission and is down to 1.22 today. No proteinuria on UA. 2. Chronic kidney disease stage III with baseline creatinine near 1.2 secondary to chronic interstitial nephritis from long-term nonsteroidal use. 3. Hyperkalemia secondary to acute kidney injury, metabolic acidosis and hyperglycemia. Better. 4. DKA status post insulin drip. Better. 5. Metabolic acidosis secondary to DKA and acute kidney injury. Plan: Maintain normal saline at 75 mL an hour. Encourage oral intake. Avoid nephrotoxins. Stressed compliance with insulin and medications. Thank you for the consultation. I will continue to follow the patient with you during his hospital stay.
[2018-11-10] MEDS: SODIUM CHLORIDE 0.9% 1,000 ML IV SCH (12:31)
[2018-11-10 12:38] LABS: Glucose,Whole Blood 287 mg/dL (75-99)
[2018-11-10 17:21] LABS: Glucose,Whole Blood 213 mg/dL (75-99)
[2018-11-10] MEDS: AMITRIPTYLINE HCL 25 MG TAB PO SCH (20:08)
[2018-11-10 20:09] LABS: Glucose,Whole Blood 231 mg/dL (75-99)
[2018-11-10] MEDS: INSULIN DETEMIR (LEVEMIR) 100 UNIT/ML SYR SQ SCH (20:09)
[2018-11-11] MEDS: SODIUM CHLORIDE 0.9% 1,000 ML IV SCH ×2 (01:19→12:00)
[2018-11-11 06:30] LABS: Basophils % (A) 0 %; Eosinophils # (A) 0.2 k/uL (0-0.7); Eosinophils % (A) 2 %; HGB 10.9 gm/dL (13.0-17.5); Lymphocytes # (A) 1.6 k/uL (1.0-4.8); Lymphocytes % (A) 22 %; MCV 96.9 fL (80.0-100.0); Mean Platelet Volume 7.5; Monocytes # (A) 0.4 k/uL (0-1.0); Monocytes % (A) 5 %; Neutrophils # (A) 5.2 k/uL (1.3-7.7); Neutrophils % (A) 69 %; Platelet Count 172 k/uL (150-450); RBC 3.41 m/uL (4.30-5.90); RDW 13.6 % (11.5-15.5); WBC 7.5 k/uL (3.8-10.6)
[2018-11-11 06:46] LABS: ALT 22 U/L (21-72); AST 26 U/L (17-59); African American GFR (CKD) >90 (>60 ml/min/1.73 sqM); Alkaline Phosphatase 52 U/L (38-126); Anion Gap 6 mmol/L; Blood Urea Nitrogen 16 mg/dL (9-20); Calcium 8.5 mg/dL (8.4-10.2); Carbon Dioxide 27 mmol/L (22-30); Chloride 105 mmol/L (98-107); Glucose 164 mg/dL (74-99); Magnesium 1.6 mg/dL (1.6-2.3); Potassium 4.7 mmol/L (3.5-5.1); Sodium 138 mmol/L (137-145); Total Bilirubin 0.5 mg/dL (0.2-1.3); Total Protein 5.5 g/dL (6.3-8.2)
[2018-11-11 07:08] LABS: Glucose,Whole Blood 179 mg/dL (75-99)
[2018-11-11] MEDS: INSULIN ASPART (NovoLOG) 100 UNIT/ML VIAL SQ SCH ×7 (07:11→21:56)
[2018-11-11] MEDS: ASPIRIN 81 MG PO SCH (08:08)
[2018-11-11] MEDS: PANTOPRAZOLE 40 MG TABLET PO SCH ×2 (08:08→20:38)
[2018-11-11] MEDS: traMADol 50 MG TAB PO SCH ×3 (08:08→21:55)
[2018-11-11] MEDS: METOPROLOL SUCCINATE (ER) 25 MG TAB.ER.24H PO SCH (08:08)
[2018-11-11] MEDS: TAMSULOSIN 0.4 MG CAP.ER.24H PO SCH (08:08)
[2018-11-11] MEDS: CITALOPRAM HYDROBROMIDE 20 MG TAB PO SCH (08:08)
[2018-11-11] MEDS: CHOLECALCIFEROL 1,000 UNIT TAB PO SCH (08:08)
[2018-11-11] MEDS: ATORVASTATIN 40 MG TAB PO SCH (08:09)
[2018-11-11] MEDS: HEPARIN SODIUM,PORCINE 5,000 UNIT/ML 1 ML VIAL SQ SCH (08:09)
--- NOTE | 2018-11-11 09:40 | P.PN ---
Subjective Progress Note Date: 11/11/18 This is a 68-year-old male patient who presented with complaints of elevated blood sugar with nausea and vomiting. Patient reports that he forgot to fill his insulin pump yesterday and went with family reunion. According to ER report patient was found to be lethargic with an elevated glucose greater than 500. Patient has past medical history of type 1 insulin-dependent diabetes which she follows with endocrine and maintained on an insulin pump. Additional medical history includes factor V disorder, diabetes mellitus, GERD, hyperlipidemia, hypertension, prostate disorder, chronic renal disease in which he does follow with nephrology, and neuropathy. Patient reports that he feels like he's been getting more forgetful lately diabetes education has been consulted. Insulin pump has been disconnected. Patient started on insulin drip for DKA protocol. Urine was positive for ketones. Anion Gap 24 CO2 12. Acetone positive. Repeat electrolytes ordered for 1600. At this time patient is nauseated Zofran has been ordered. Patient denies any chest pain or shortness of breath. Patient denies any urinary burning or frequency. Patient denies any recent illness prior to episode of elevated blood sugar On 11/10/2018 patient's alert and oriented 3. Patient was taken off insulin drip last night transition to long-acting and sliding scale coverage. At this time patient reports improvement with his nausea. Patient denies any chest pain or shortness of breath. Patient denies any diarrhea. Patient denies any urinary burning or frequency On 11/11/2017 patient's alert and oriented 3. Patient is still complaining of some nausea. Patient did report he had normal bowel movement last night. Patient remains off insulin drip. Abdomen is nondistended. Patient remains on clear liquid diet. Patient denies any chest pain or shortness of breath. Patient denies any diarrhea. Patient denies any urinary burning or frequency. Objective - Vital Signs Vital signs: Vital Signs Temp 98.2 F 11/11/18 08:16 Pulse 85 11/11/18 08:16 Resp 18 11/11/18 08:16 BP 157/71 11/11/18 08:16 Pulse Ox 93 L 11/11/18 08:16 Intake & Output 11/10/18 11/11/18 11/11/18 18:59 06:59 18:59 Intake Total 200 600 Output Total 1450 800 Balance -1250 -200 Weight 122.2 kg 122.4 kg Intake: Intake, IV Titration 600 Amount Sodium Chloride 0.9% 1, 600 000 ml @ 75 mls/hr IV . [id number] [facility] Rx#:[id number] Oral 200 Output: Urine 1450 800 Other: Voiding Method Urinal Urinal Urinal # Voids 3 1 - Exam Head normocephalic Neck supple Lungs clear to auscultation bilaterally no wheezing or crackles Heart regular rate and rhythm S1-S2, no rub or gallop Abdomen is soft nontender nondistended positive bowel sounds no hepatosplenomegaly Extremities no edema Neuro alert and orientated to 3 - Labs CBC & Chem 7: 11/11/18 05:27 11/11/18 05:27 Labs: Abnormal Lab Results - Last 24 Hours (Table) 11/10/18 11/10/18 11/10/18 Range/Units 12:24 17:18 20:07 RBC (4.30-5.90) m/uL Hgb (13.0-17.5) gm/dL Hct (39.0-53.0) % Glucose (74-99) mg/dL POC Glucose (mg/dL) 287 H 213 H 231 H (75-99) mg/dL Total Protein (6.3-8.2) g/dL Albumin (3.5-5.0) g/dL 11/11/18 11/11/18 11/11/18 Range/Units 05:27 05:27 07:07 RBC 3.41 L (4.30-5.90) m/uL Hgb 10.9 L (13.0-17.5) gm/dL Hct 33.0 L (39.0-53.0) % Glucose 164 H (74-99) mg/dL POC Glucose (mg/dL) 179 H (75-99) mg/dL Total Protein 5.5 L (6.3-8.2) g/dL Albumin 3.0 L (3.5-5.0) g/dL Assessment and Plan Assessment: 1. Diabetic ketoacidosis with blood sugar is elevated greater than 500. Patient started on insulin drip. Anion Gap Improving to 6 and CO2 25. Patient transitioned to subcu insulin. Patient maintained on 35 units subcu insulin ni ghtly +5 units and sliding scale coverage with meals 2. Acute kidney injury with hyperkalemia. Creatinine elevated 2.04 and bun 37. Creatinine improving to 1.22 bun 30. Potassium 5.1. Resolved 3. Type 1 diabetes mellitus. Patient normally follows with endocrinology. Maintain on insulin pump insulin pump has been disconnected 4. History of factor V disorder 5. History of hyperlipidemia. Maintained on statin 6. History of coronary artery disease 7. History of chronic renal disease stage III. Patient does follow with nephrology services 8. History of neuropathy 9. History of lumbar laminectomy 10. History of depression 11. History of GERD 12. History of hearing disorder 13. History of chronic back pain 14. Essential hypertension 13. Nausea with vomiting likely related to DKA. Lipase 27. Continue Zofran DVT prophylaxis heparin. GI prophylaxis Protonix I performed an examination of the patient and discussed their management with the Nurse Practitioner. I have reviewed the Nurse Practitioner's notes and agree with the documented findings and plan of care
[2018-11-11] MEDS ORDERED: HEPARIN SODIUM,PORCINE 5,000 UNIT/ML 1 ML VIAL IV PRN (11:17)
[2018-11-11] MEDS ORDERED: HEPARIN SODIUM,PORCINE 5,000 UNIT/ML 1 ML VIAL IV ONE (11:17)
[2018-11-11] MEDS: HEPARIN SOD,PORK IN 0.45% NACL 25,000 UNIT in 0.45% NACL 1 250ML.BAG IV SCH (11:37)
[2018-11-11] MEDS: metFORMIN 500 MG TAB PO SCH ×2 (11:39→17:18)
[2018-11-11 11:50] LABS: Basophils % (A) 0 %; Eosinophils # (A) 0.2 k/uL (0-0.7); Eosinophils % (A) 2 %; HCT 33.7 % (39.0-53.0); HGB 10.9 gm/dL (13.0-17.5); Lymphocytes # (A) 1.8 k/uL (1.0-4.8); Lymphocytes % (A) 23 %; MCH 31.4 pg (25.0-35.0); MCHC 32.3 g/dL (31.0-37.0); MCV 97.2 fL (80.0-100.0); Mean Platelet Volume 8.1; Monocytes # (A) 0.4 k/uL (0-1.0); Monocytes % (A) 5 %; Neutrophils # (A) 5.3 k/uL (1.3-7.7); Neutrophils % (A) 68 %; Platelet Count 177 k/uL (150-450); RBC 3.47 m/uL (4.30-5.90); RDW 14.7 % (11.5-15.5); WBC 7.8 k/uL (3.8-10.6)
[2018-11-11 11:59] LABS: Glucose,Whole Blood 128 mg/dL (75-99)
[2018-11-11 12:06] LABS: Prothrombin Time 10.4 sec (9.0-12.0)
[2018-11-11 12:07] LABS: Partial Thromboplastin Time 21.8 sec (22.0-30.0)
--- NOTE | 2018-11-11 13:09 | P.CRDCN ---
History of Present Illness Consult date: 11/11/18 Requesting physician: Ej Gibson Reason for Consult (text): Abnormal troponin Chief complaint: Nausea and vomiting, elevated blood sugar History of present illness: This is a 68-year-old gentleman who follows regularly with Dr. LYNN Bhardwaj in the office, he has a known history of hypertension, diabetes, hyperlipidemia, factor V Leiden disorder, GERD, chronic renal disease, nicotine dependence, the patient did undergo cardiac catheterization in March of this year revealed moderate noncritical diffuse disease involving all 3 arteries with a right dominant system, normal filling pressures and no gradient across the aortic valve. Presented to the hospital initially with nausea and vomiting, patient was found at home to be quite lethargic, his glucose level was greater than 500. Patient had persistent nausea and for this reason a troponin level was ordered, he is also complaining of some acid reflux type discomfort in his mid sternal area. This occurs only after he drinks water. Chest x-ray did not reveal any acute cardiopulmonary process. EKG shows a sinus tachycardia with mild ST depression noted in the lateral leads. Mild elevation in aVR. Blood pressure 156/60 with a heart rate in the 70s, 94% on room air. White blood cell count 7.8, hemoglobin 10.9, platelet count 177, sodium 138, potassium 4.7, BUN 16 and creatinine 0.8. Magnesium 1.6, troponin 1.5, 1.3. At the time of my examination, patient still is having some mild nausea, he denies any chest dis comfort. Past Medical History Past Medical History: Blood Disorder, Coronary Artery Disease (CAD), Dementia, Diabetes Mellitus, Eye Disorder, GERD/Reflux, Hearing Disorder / Deafness, Hyperlipidemia, Hypertension, Neurologic Disorder, Osteoarthritis (OA), Prostate Disorder, Renal Disease, Syncope Additional Past Medical History / Comment(s): IDDM type I with insulin pump, bilateral legs/feet/arms and hand neuropathy, chronic renal disease, difficulty swallowing, RLS, factor V, early dementia, BPH, bilateral tinnitis, R eye reti nal bleeds x2, chronic low back pain with bilateral sciatica which is worse on the right side, bilateral shoulder and cervical pain, History of Any Multi-Drug Resistant Organisms: None Reported Past Surgical History: Adenoidectomy, Back Surgery, Heart Catheterization, Orthopedic Surgery, Tonsillectomy Additional Past Surgical History / Comment(s): Lumbar laminectomy, R knee cartildge surgery, bilateral carpal tunnel released, L wrist dequevain surgery, R rotator cuff repair, L foot pins and plates, EGD, colonoscopy, R eye laser eye surgery for retinal bleeds, bilateral cataract removals/lens implants. Past Anesthesia/Blood Transfusion Reactions: Motion Sickness Past Psychological History: Depression Additional Psychological History / Comment(s): Pt resides with his spouse and their adult son. Pt uses a walker prn. He drives. He is currently managing his own medications but admits this is getting more difficult. Smoking Status: Former smoker Past Alcohol Use History: None Reported Additional Past Alcohol Use History / Comment(s): Pt started smoking in 1962 and quit in 1987 Past Drug Use History: None Reported - Past Family History Brother(s) Family Medical History: Deep Vein Thrombosis (DVT) Mother Additional Family Medical History / Comment(s): Mother had palsey Father Family Medical History: COPD, Myocardial Infarction (MD) Additional Family Medical History / Comment(s): Father of COPD/MD at the age of 72 yrs. Medications and Allergies Home Medications Medication Instructions Recorded Confirmed Type Amitriptyline HCl [Elavil] 75 mg PO HS 10/16/13 11/09/18 History Aspirin 81 mg PO DAILY 10/16/13 11/09/18 History Cholecalciferol [Vitamin D3 (25 2,000 unit PO DAILY 10/16/13 11/09/18 History Mcg = 1000 Iu)] Citalopram Hydrobromide 20 mg PO DAILY 01/20/18 11/09/18 History [Citalopram HBr] Pantoprazole [Protonix] 40 mg PO BID 01/20/18 11/09/18 History metFORMIN HCL [Glucophage] 500 mg PO BID 03/20/18 11/09/18 History Atorvastatin [Lipitor] 40 mg PO DAILY 04/29/18 11/09/18 History Sodium Polystyrene Sulfon/Sorb 11.25 gm PO DIRECTED 04/29/18 11/09/18 History [SPS] rOPINIRole HCL [Requip] 0.5 mg PO HS 30 Days #30 tablet 05/09/18 11/09/18 Rx Insulin Aspart (For Pump) [NovoLOG 0.01 unit SQ-PUMP CONTINUOUS 11/09/18 11/09/18 History (For Pump)] Metoprolol Succinate [Toprol XL] 25 mg PO DAILY 11/09/18 11/09/18 History Tamsulosin [Flomax] 0.4 mg PO DAILY 11/09/18 11/09/18 History traMADol HCL [Ultram] 50 mg PO TID 11/09/18 11/09/18 History Allergies Allergy/AdvReac Type Severity Reaction Status Date / Time No Known Allergies Allergy Verified 11/09/18 09:05 Physical Exam Vitals: Vital Signs Temp Pulse Resp BP Pulse Ox 11/11/18 08:16 98.2 F 73 16 157/71 93 L 11/11/18 03:52 85 18 11/11/18 03:51 98.2 F 85 18 137/75 94 L 11/11/18 00:00 98.2 F 73 16 128/62 91 L 11/10/18 19:59 98.0 F 74 18 172/75 97 11/10/18 16:00 98.1 F 74 19 147/47 98 Intake and Output 11/10/18 11/11/18 11/11/18 22:59 06:59 14:59 Intake Total 600 Output Total 1000 400 400 Balance -400 -400 -400 Intake: Intake, IV Titration 600 Amount Sodium Chloride 0.9% 1, 600 000 ml @ 75 mls/hr IV . [id number] [facility] Rx#:[id number] Output: Urine 1000 400 400 Other: Voiding Method Urinal Urinal Urinal # Voids 1 1 Weight 122.4 kg PHYSICAL EXAMINATION: GENERAL: 68-year-old gentleman in no acute distress at the time of my examination HEENT: Head is atraumatic, normocephalic. Pupils equal, round. Sclera anicteric. Conjunctiva are clear. Mucous membranes of the mouth are moist. Neck is supple. There is no elevated jugular venous pressure. No carotid bruit is heard. HEART EXAMINATION: Heart S1, S2 normal. No murmur or gallop heard. CHEST EXAMINATION: Lungs are clear to auscultation and precussion. No chest wall tenderness is noted on palpation or with deep breathing. ABDOMEN: Soft, nontender. Bowel sounds are heard. No organomegaly noted. EXTREMITIES: 2+ peripheral pulses with no evidence of peripheral edema and no calf tenderness noted. NEUROLOGIC patient is awake, alert and oriented 3 . . Results 11/11/18 11:25 11/11/18 05:27 Cardiac Enzymes 11/11/18 11/11/18 11/11/18 Range/Units 05:27 05:27 11:25 AST 26 (17-59) U/L Troponin I 1.530 H* 1.300 H* (0.000-0.034) ng/mL Coagulation 11/11/18 Range/Units 11:25 PT 10.4 (9.0-12.0) sec APTT 21.8 L (22.0-30.0) sec CBC 11/11/18 11/11/18 Range/Units 05:27 11:25 WBC 7.5 7.8 (3.8-10.6) k/uL RBC 3.41 L 3.47 L (4.30-5.90) m/uL Hgb 10.9 L 10.9 L (13.0-17.5) gm/dL Hct 33.0 L 33.7 L (39.0-53.0) % Plt Count 172 177 (150-450) k/uL Comprehensive Metabolic Panel 11/11/18 Range/Units 05:27 Sodium 138 (137-145) mmol/L Potassium 4.7 (3.5-5.1) mmol/L Chloride 105 (98-107) mmol/L Carbon Dioxide 27 (22-30) mmol/L BUN 16 (9-20) mg/dL Creatinine 0.87 (0.66-1.25) mg/dL Glucose 164 H (74-99) mg/dL Calcium 8.5 (8.4-10.2) mg/dL AST 26 (17-59) U/L ALT 22 (21-72) U/L Alkaline Phosphatase 52 (38-126) U/L Total Protein 5.5 L (6.3-8.2) g/dL Albumin 3.0 L (3.5-5.0) g/dL Current Medications Generic Name Dose Route Start Last Admin Trade Name Freq PRN Reason Stop Dose Admin Amitriptyline HCl 75 mg 11/09/18 21:00 11/10/18 20:08 Elavil PO 75 mg HS [facility] Administration Aspirin 81 mg 11/10/18 09:00 11/11/18 08:08 Aspirin PO 81 mg DAILY [facility] Administration Atorvastatin Calcium 40 mg 11/10/18 09:00 11/11/18 08:09 Lipitor PO 40 mg DAILY [facility] Administration Cholecalciferol 2,000 unit 11/10/18 09:00 11/11/18 08:08 Vitamin D3 (25 Mcg = 1000 Iu) PO 2,000 unit DAILY [facility] Administration Citalopram Hydrobromide 20 mg 11/10/18 09:00 11/11/18 08:08 Celexa PO 20 mg DAILY [facility] Administration Heparin Sodium (Porcine) 0 unit 11/11/18 11:17 Heparin IV PER PROTOCOL PRN Low PTT Protocol Sodium Chloride 1,000 mls @ 75 mls/hr 11/09/18 21:00 11/11/18 12:00 Saline 0.9% IV Not Given .[id number] [facility] Heparin Sodium/Sodium Chloride 250 mls @ 10.037 mls/hr 11/11/18 11:30 11/11/18 11:37 25,000 unit/ Sodium Chloride IV 8.2 units/kg/hr .Q24H [facility] 10.037 mls/hr Administration Protocol 8.2 UNITS/KG/HR Insulin Aspart 5 unit 11/10/18 07:30 11/11/18 12:07 Novolog SQ 5 unit AC-TID [facility] Administration Insulin Aspart 0 unit 11/09/18 21:00 11/11/18 12:07 Novolog SQ Not Given ACHS [facility] Protocol Insulin Detemir 35 unit 11/10/18 21:00 11/10/18 20:09 Levemir SQ 35 unit HS [facility] Administration Metformin HCl 500 mg 11/11/18 09:00 11/11/18 11:39 Glucophage PO 500 mg BID-W/MEALS [facility] Administration Metoprolol Succinate 25 mg 11/10/18 09:00 11/11/18 08:08 Toprol Xl PO 25 mg DAILY [facility] Administration Miscellaneous Information 1 each 11/09/18 09:40 Magnesium Per Protocol MISCELLANE DAILY PRN Per Protocol Protocol Miscellaneous Information 1 each 11/09/18 09:40 Potassium Per Protocol MISCELLANE DAILY PRN Per Protocol Ondansetron HCl 4 mg 11/09/18 14:47 11/10/18 20:10 Zofran IVP 4 mg Q6HR PRN Administration Nausea And Vomiting Pantoprazole Sodium 40 mg 11/09/18 21:00 11/11/18 08:08 Protonix PO 40 mg BID [facility] Administration Ropinirole HCl 0.5 mg 11/09/18 21:00 11/10/18 20:09 Requip PO 0.5 mg HS [facility] Administration Tamsulosin HCl 0.4 mg 11/10/18 09:00 11/11/18 08:08 Flomax PO 0.4 mg DAILY [facility] Administration Tramadol HCl 50 mg 11/09/18 16:00 11/11/18 08:08 Ultram PO 50 mg TID [facility] Administration Intake and Output 11/10/18 11/11/18 11/11/18 22:59 06:59 14:59 Intake Total 600 Output Total 1000 400 400 Balance -400 -400 -400 Intake: Intake, IV Titration 600 Amount Sodium Chloride 0.9% 1, 600 000 ml @ 75 mls/hr IV . [id number] [facility] Rx#:[id number] Output: Urine 1000 400 400 Other: Voiding Method Urinal Urinal Urinal # Voids 1 1 Weight 122.4 kg 11/11/18 11:25 11/11/18 05:27 EKG Interpretations (text) EKG shows a sinus tachycardia with mild ST depression in the lateral leads, mild elevation noted in AVR Assessment and Plan Plan: Assessment and plan: 1. Diabetic ketoacidosis with blood sugar is elevated greater than 500. 2. Acute kidney injury with hyperkalemia. 3. Type 1 diabetes mellitus. 4. History of factor V disorder 5. History of hyperlipidemia. 6. History of coronary artery disease, cardiac catheterization performed in March of this year which revealed moderate noncritical disease in all 3 vessels 7. History of chronic renal disease stage III. 8. History of neuropathy 9. History of lumbar laminectomy 10. History of depression 11. History of GERD 12. History of hearing disorder 13. History of chronic back pain 14. Essential hypertension 15. Nausea with vomiting likely related to DKA. 16. Abnormal troponin, patient denies any chest pressure heaviness, he is complaining of some midepigastric burning which reminds him of this GERD. EKG shows a normal sinus rhythm, sinus tachycardia with lateral ST depression and mild elevation in aVR. Abnormality in troponin could also be secondary to DKA Plan Will obtain an echocardiogram with Doppler study as well as third troponin. Continue IV heparin at this time. DNP note has been reviewed, I agree with a documented findings and plan of care. Patient was seen and examined.
--- NOTE | 2018-11-11 13:15 | P.PN ---
Subjective Patient is seen in follow-up for acute kidney injury and chronic knee disease. Patient has chronic kidney disease stage III with baseline creatinine near 1-1.2 secondary to chronic interstitial nephritis due to chronic nonsteroidal use. Renal function is back to baseline. Blood sugars are better controlled. Oral intake is fair. No vomiting or diarrhea. Vital signs are stable. General: The patient appeared well nourished and normally developed. HEENT: Head exam is unremarkable. Neck is without jugular venous distension. LUNGS: Lungs are clear to auscultation and percussion. Breath sounds decreased. HEART: Rate and Rhythm are regular. First and second heart sounds normal. No murmurs, rubs or gallops. ABDOMEN: Abdominal exam reveals normal bowel sounds. Non-tender and non- distended. No evidence of peritonitis. EXTREMITITES: No clubbing, cyanosis, or edema. Objective - Vital Signs Vital signs: Vital Signs Temp 97.8 F 11/11/18 12:00 Pulse 71 11/11/18 12:00 Resp 18 11/11/18 12:00 BP 156/68 11/11/18 12:00 Pulse Ox 94 L 11/11/18 12:00 Intake & Output 11/10/18 11/11/18 11/11/18 18:59 06:59 18:59 Intake Total 200 600 Output Total 1450 800 400 Balance -1250 -200 -400 Weight 122.2 kg 122.4 kg Intake: Intake, IV Titration 600 Amount Sodium Chloride 0.9% 1, 600 000 ml @ 75 mls/hr IV . [id number] [facility] Rx#:[id number] Oral 200 Output: Urine 1450 800 400 Other: Voiding Method Urinal Urinal Urinal # Voids 3 1 - Labs CBC & Chem 7: 11/11/18 11:25 11/11/18 05:27 Labs: Abnormal Lab Results - Last 24 Hours (Table) 11/10/18 11/10/18 11/11/18 Range/Units 17:18 20:07 05:27 RBC 3.41 L (4.30-5.90) m/uL Hgb 10.9 L (13.0-17.5) gm/dL Hct 33.0 L (39.0-53.0) % APTT (22.0-30.0) sec Glucose (74-99) mg/dL POC Glucose (mg/dL) 213 H 231 H (75-99) mg/dL Troponin I (0.000-0.034) ng/mL Total Protein (6.3-8.2) g/dL Albumin (3.5-5.0) g/dL 11/11/18 11/11/18 11/11/18 Range/Units 05:27 05:27 07:07 RBC (4.30-5.90) m/uL Hgb (13.0-17.5) gm/dL Hct (39.0-53.0) % APTT (22.0-30.0) sec Glucose 164 H (74-99) mg/dL POC Glucose (mg/dL) 179 H (75-99) mg/dL Troponin I 1.530 H* (0.000-0.034) ng/mL Total Protein 5.5 L (6.3-8.2) g/dL Albumin 3.0 L (3.5-5.0) g/dL 11/11/18 11/11/18 11/11/18 Range/Units 11:25 11:25 11:25 RBC 3.47 L (4.30-5.90) m/uL Hgb 10.9 L (13.0-17.5) gm/dL Hct 33.7 L (39.0-53.0) % APTT 21.8 L (22.0-30.0) sec Glucose (74-99) mg/dL POC Glucose (mg/dL) (75-99) mg/dL Troponin I 1.300 H* (0.000-0.034) ng/mL Total Protein (6.3-8.2) g/dL Albumin (3.5-5.0) g/dL 11/11/18 Range/Units 11:58 RBC (4.30-5.90) m/uL Hgb (13.0-17.5) gm/dL Hct (39.0-53.0) % APTT (22.0-30.0) sec Glucose (74-99) mg/dL POC Glucose (mg/dL) 128 H (75-99) mg/dL Troponin I (0.000-0.034) ng/mL Total Protein (6.3-8.2) g/dL Albumin (3.5-5.0) g/dL Assessment and Plan Plan: Assessment: 1. Acute kidney injury mostly prerenal secondary to intravascular volume depletion secondary to hyperglycemia. Creatinine was 2.04 on admission and is down to 0.87 today. No proteinuria on UA. 2. Chronic kidney disease stage III with baseline creatinine near 1-1.2 secondary to chronic interstitial nephritis from long-term nonsteroidal use. 3. Hyperkalemia secondary to acute kidney injury, metabolic acidosis and hyperglycemia. Better. 4. DKA status post insulin drip. Better. 5. Metabolic acidosis secondary to DKA and acute kidney injury. Better. Plan: Hep-Lock IV fluids. Encourage oral intake. Avoid nephrotoxins. Stressed compliance with insulin and medications. Stable to be discharged home from nephrology standpoint.
[2018-11-11] MEDS: MAGNESIUM SULFATE-D5W PMX 1 GM in DEXTROSE/WATER 1 100ML.BAG IVPB SCH ×2 (15:12→16:33)
[2018-11-11 17:02] LABS: Glucose,Whole Blood 174 mg/dL (75-99)
[2018-11-11] MEDS: AMITRIPTYLINE HCL 25 MG TAB PO SCH (20:38)
[2018-11-11 21:34] LABS: Glucose,Whole Blood 167 mg/dL (75-99)
[2018-11-11] MEDS: INSULIN DETEMIR (LEVEMIR) 100 UNIT/ML SYR SQ SCH (21:55)
[2018-11-12 03:53] LABS: Basophils % (A) 0 %; Eosinophils # (A) 0.2 k/uL (0-0.7); Eosinophils % (A) 2 %; HCT 34.1 % (39.0-53.0); HGB 11.5 gm/dL (13.0-17.5); Lymphocytes # (A) 2.2 k/uL (1.0-4.8); Lymphocytes % (A) 27 %; MCH 32.3 pg (25.0-35.0); MCHC 33.8 g/dL (31.0-37.0); MCV 95.6 fL (80.0-100.0); Mean Platelet Volume 7.5; Monocytes # (A) 0.5 k/uL (0-1.0); Monocytes % (A) 6 %; Neutrophils % (A) 63 %; Platelet Count 167 k/uL (150-450); RBC 3.57 m/uL (4.30-5.90); RDW 13.6 % (11.5-15.5); WBC 7.9 k/uL (3.8-10.6)
[2018-11-12 04:07] LABS: ALT 23 U/L (21-72); AST 30 U/L (17-59); African American GFR (CKD) >90 (>60 ml/min/1.73 sqM); Albumin 3.1 g/dL (3.5-5.0); Alkaline Phosphatase 62 U/L (38-126); Anion Gap 5 mmol/L; Blood Urea Nitrogen 11 mg/dL (9-20); Calcium 8.6 mg/dL (8.4-10.2); Carbon Dioxide 28 mmol/L (22-30); Chloride 104 mmol/L (98-107); Glucose 138 mg/dL (74-99); Potassium 4.5 mmol/L (3.5-5.1); Sodium 137 mmol/L (137-145); Total Bilirubin 0.7 mg/dL (0.2-1.3); Total Protein 5.7 g/dL (6.3-8.2)
[2018-11-12] MEDS: INSULIN ASPART (NovoLOG) 100 UNIT/ML VIAL SQ SCH ×7 (07:19→20:55)
[2018-11-12 07:25] LABS: Glucose,Whole Blood 131 mg/dL (75-99)
[2018-11-12] MEDS: metFORMIN 500 MG TAB PO SCH ×2 (07:34→17:37)
[2018-11-12] MEDS ORDERED: LISINOPRIL 5 MG TAB PO SCH (09:00)
[2018-11-12] MEDS: CLOPIDOGREL 75 MG TAB PO SCH (09:17)
[2018-11-12] MEDS: CHOLECALCIFEROL 1,000 UNIT TAB PO SCH (09:17)
[2018-11-12] MEDS: traMADol 50 MG TAB PO SCH ×3 (09:17→22:21)
[2018-11-12] MEDS: METOPROLOL SUCCINATE (ER) 25 MG TAB.ER.24H PO SCH (09:18)
[2018-11-12] MEDS: CITALOPRAM HYDROBROMIDE 20 MG TAB PO SCH (09:18)
[2018-11-12] MEDS: TAMSULOSIN 0.4 MG CAP.ER.24H PO SCH (09:18)
[2018-11-12] MEDS: PANTOPRAZOLE 40 MG TABLET PO SCH ×2 (09:18→20:55)
[2018-11-12] MEDS: ASPIRIN 81 MG PO SCH (09:18)
[2018-11-12] MEDS: ATORVASTATIN 40 MG TAB PO SCH (09:18)
[2018-11-12] MEDS: HEPARIN SOD,PORK IN 0.45% NACL 25,000 UNIT in 0.45% NACL 1 250ML.BAG IV SCH (11:08)
[2018-11-12] MEDS ORDERED: LISINOPRIL 5 MG TAB PO STA (11:16)
--- NOTE | 2018-11-12 11:31 | ECHOF ---
Referral Reason:abn trop MEASUREMENTS -------- HEIGHT: 182.9 cm WEIGHT: 121.6 kg BP: 156/68 RVIDd: 3.2 cm (< 3.3) IVSd: 1.3 cm (0.6 - 1.1) LVIDd: 5.2 cm (3.9 - 5.3) LVPWd: 1.6 cm (0.6 - 1.1) IVSs: 1.4 cm LVIDs: 4.1 cm LVPWs: 1.5 cm LA Diam: 3.6 cm (2.7 - 3.8) LAESV Index (A-L): 22.36 ml/m Ao Diam: 3.5 cm (2.0 - 3.7) AV Cusp: 2.1 cm (1.5 - 2.6) LA Diam: 4.0 cm (2.7 - 3.8) MV EXCURSION: 25.380 mm (> 18.000) MV EF SLOPE: 140 mm/s (70 - 150) EPSS: 1.0 cm MV E Raffy: 0.56 m/s MV DecT: 148 ms MV A Raffy: 0.42 m/s MV E/A Ratio: 1.33 RAP: 5.00 mmHg RVSP: 26.10 mmHg FINDINGS -------- Sinus rhythm. Morbid Obesity The left ventricular size is normal. There is mild concentric left ventricular hypertrophy. Overa ll left ventricular systolic function is low-normal with, an EF between 50 - 55 %. The right ventricle is mildly enlarged. The left atrial size is normal. Normal LA size by volume 22+/-6 ml/m2. The right atrial size is normal. There is mild aortic valve sclerosis. There is no evidence of aortic regurgitation. Mild mitral annular calcification present. Mild mitral regurgitation is present. Mild tricuspid regurgitation present. There is no evidence of pulmonary hypertension. The right v entricular systolic pressure, as measured by Doppler, is 26.10mmHg. There is no pulmonic regurgitation present. The aortic root size is normal. There is no pericardial effusion. CONCLUSIONS -------- 1. Sinus rhythm. 2. Morbid Obesity 3. The left ventricular size is normal. 4. There is mild concentric left ventricular hypertrophy. 5. Overall left ventricular systolic function is low-normal with, an EF between 50 - 55 %. 6. The right ventricle is mildly enlarged. 7. The left atrial size is normal. 8. Normal LA size by volume 22+/-6 ml/m2. 9. The right atrial size is normal. 10. There is mild aortic valve sclerosis. 11. Mild mitral annular calcification present. 12. Mild mitral regurgitation is present. 13. Mild tricuspid regurgitation present. 14. There is no evidence of pulmonary hypertension. 15. The right ventricular systolic pressure, as measured by Doppler, is 26.10mmHg. 16. There is no pulmonic regurgitation present. 17. The aortic root size is normal. 18. There is no pericardial effusion. TEAM LEADER: Lakeisha Do RDCS
[2018-11-12] MEDS: amLODIPine 5 MG TAB PO SCH (11:47)
--- NOTE | 2018-11-12 12:09 | P.PN ---
Subjective Patient is seen in follow-up for acute kidney injury and chronic knee disease. Patient has chronic kidney disease stage III with baseline creatinine near 1-1.2 secondary to chronic interstitial nephritis due to chronic nonsteroidal use. Renal function is back to baseline. Blood sugars are better controlled. Oral intake is fair. No vomiting or diarrhea. Blood pressures have been running high. Most recent 159/84. Vital signs are stable. General: The patient appeared well nourished and normally developed. HEENT: Head exam is unremarkable. Neck is without jugular venous distension. LUNGS: Lungs are clear to auscultation and percussion. Breath sounds decreased. HEART: Rate and Rhythm are regular. First and second heart sounds normal. No murmurs, rubs or gallops. ABDOMEN: Abdominal exam reveals normal bowel sounds. Non-tender and non- distended. No evidence of peritonitis. EXTREMITITES: No clubbing, cyanosis, or edema. Objective - Vital Signs Vital signs: Vital Signs Temp 98.5 F 11/12/18 11:11 Pulse 58 L 11/12/18 11:11 Resp 18 11/12/18 11:11 BP 159/84 11/12/18 11:11 Pulse Ox 97 11/12/18 11:11 Intake & Output 11/11/18 11/12/18 11/12/18 18:59 06:59 18:59 Intake Total 400 1140 605.258 Output Total 400 1925 Balance 0 -785 605.258 Weight 121.3 kg Intake: Intake, IV Titration 240 245.258 Amount Heparin Sod,Pork in 0.45% 245.258 NaCl 25,000 unit In 0.45 % NaCl 1 250ml.bag @ 8.2 UNITS/KG/HR 10.037 mls/hr IV .Q24H [facility] Rx#: [id number] Magnesium Sulfate-D5w Pmx 240 1 gm In Dextrose/Water 1 100ml.bag @ 100 mls/hr IVPB Q1H [facility] Rx#: [id number] Oral 400 900 360 Output: Urine 400 1925 Other: Voiding Method Urinal Urinal # Voids 1 - Labs CBC & Chem 7: 11/12/18 03:24 11/12/18 03:24 Labs: Abnormal Lab Results - Last 24 Hours (Table) 11/11/18 11/11/18 11/11/18 Range/Units 11:25 11:25 16:59 RBC (4.30-5.90) m/uL Hgb (13.0-17.5) gm/dL Hct (39.0-53.0) % APTT 21.8 L (22.0-30.0) sec Glucose (74-99) mg/dL POC Glucose (mg/dL) 174 H (75-99) mg/dL Troponin I 1.300 H* (0.000-0.034) ng/mL Total Protein (6.3-8.2) g/dL Albumin (3.5-5.0) g/dL 11/11/18 11/11/18 11/11/18 Range/Units 17:34 17:34 21:28 RBC (4.30-5.90) m/uL Hgb (13.0-17.5) gm/dL Hct (39.0-53.0) % APTT 60.6 H (22.0-30.0) sec Glucose (74-99) mg/dL POC Glucose (mg/dL) 167 H (75-99) mg/dL Troponin I 1.080 H* (0.000-0.034) ng/mL Total Protein (6.3-8.2) g/dL Albumin (3.5-5.0) g/dL 11/12/18 11/12/18 11/12/18 Range/Units 03:24 03:24 03:24 RBC 3.57 L (4.30-5.90) m/uL Hgb 11.5 L (13.0-17.5) gm/dL Hct 34.1 L (39.0-53.0) % APTT (22.0-30.0) sec Glucose 138 H (74-99) mg/dL POC Glucose (mg/dL) (75-99) mg/dL Troponin I 0.819 H* (0.000-0.034) ng/mL Total Protein 5.7 L (6.3-8.2) g/dL Albumin 3.1 L (3.5-5.0) g/dL 11/12/18 11/12/18 Range/Units 05:51 07:05 RBC (4.30-5.90) m/uL Hgb (13.0-17.5) gm/dL Hct (39.0-53.0) % APTT 46.6 H (22.0-30.0) sec Glucose (74-99) mg/dL POC Glucose (mg/dL) 131 H (75-99) mg/dL Troponin I (0.000-0.034) ng/mL Total Protein (6.3-8.2) g/dL Albumin (3.5-5.0) g/dL Assessment and Plan Plan: Assessment: 1. Acute kidney injury mostly prerenal secondary to intravascular volume depletion secondary to hyperglycemia. Creatinine was 2.04 on admission and is down to 0.77 today. No proteinuria on UA. 2. Chronic kidney disease stage III with baseline creatinine near 1-1.2 secondary to chronic interstitial nephritis from long-term nonsteroidal use. 3. Hyperkalemia secondary to acute kidney injury, metabolic acidosis and hyperglycemia. Better. 4. DKA status post insulin drip. Better. 5. Metabolic acidosis secondary to DKA and acute kidney injury. Resolved. 6. Hypertension with chronic kidney disease. Blood pressures high. Plan: Add amlodipine 5 mg once daily. Continue lisinopril and metoprolol. Encourage oral intake. Avoid nephrotoxins. Stressed compliance with insulin and medications.
[2018-11-12 12:27] LABS: Glucose,Whole Blood 175 mg/dL (75-99)
--- NOTE | 2018-11-12 13:11 | P.PN ---
Subjective Progress Note Date: 11/12/18 This is a 68-year-old male patient who presented with complaints of elevated blood sugar with nausea and vomiting. Patient reports that he forgot to fill his insulin pump yesterday and went with family reunion. According to ER report patient was found to be lethargic with an elevated glucose greater than 500. Patient has past medical history of type 1 insulin-dependent diabetes which she follows with endocrine and maintained on an insulin pump. Additional medical history includes factor V disorder, diabetes mellitus, GERD, hyperlipidemia, hypertension, prostate disorder, chronic renal disease in which he does follow with nephrology, and neuropathy. Patient reports that he feels like he's been getting more forgetful lately diabetes education has been consulted. Insulin pump has been disconnected. Patient started on insulin drip for DKA protocol. Urine was positive for ketones. Anion Gap 24 CO2 12. Acetone positive. Repeat electrolytes ordered for 1600. At this time patient is nauseated Zofran has been ordered. Patient denies any chest pain or shortness of breath. Patient denies any urinary burning or frequency. Patient denies any recent illness prior to episode of elevated blood sugar On 11/10/2018 patient's alert and oriented 3. Patient was taken off insulin drip last night transition to long-acting and sliding scale coverage. At this time patient reports improvement with his nausea. Patient denies any chest pain or shortness of breath. Patient denies any diarrhea. Patient denies any urinary burning or frequency On 11/11/2017 patient's alert and oriented 3. Patient is still complaining of some nausea. Patient did report he had normal bowel movement last night. Patient remains off insulin drip. Abdomen is nondistended. Patient remains on clear liquid diet. Patient denies any chest pain or shortness of breath. Patient denies any diarrhea. Patient denies any urinary burning or frequency. on 11/13/2018 patient's alert and oriented 3. Patient still complaining of nausea with vomiting. Amylase lipase ultrasound of abdomen and GI consult placed. Discussed case with cardiology services heparin drip has been DC'd medically managed at this time. Patient denies chest pain or shortness of breath. Patient denies nausea vomiting or diarrhea. Patient denies any urinary burning or frequency. Objective - Vital Signs Vital signs: Vital Signs Temp 98.5 F 11/12/18 11:11 Pulse 58 L 11/12/18 11:11 Resp 18 11/12/18 11:11 BP 159/84 11/12/18 11:11 Pulse Ox 97 11/12/18 11:11 Intake & Output 11/11/18 11/12/18 11/12/18 18:59 06:59 18:59 Intake Total 400 1140 605.258 Output Total 400 1925 Balance 0 -785 605.258 Weight 121.3 kg Intake: Intake, IV Titration 240 245.258 Amount Heparin Sod,Pork in 0.45% 245.258 NaCl 25,000 unit In 0.45 % NaCl 1 250ml.bag @ 8.2 UNITS/KG/HR 10.037 mls/hr IV .Q24H [facility] Rx#: [id number] Magnesium Sulfate-D5w Pmx 240 1 gm In Dextrose/Water 1 100ml.bag @ 100 mls/hr IVPB Q1H [facility] Rx#: [id number] Oral 400 900 360 Output: Urine 400 1925 Other: Voiding Method Urinal Urinal # Voids 1 - Exam Head normocephalic Neck supple Lungs clear to auscultation bilaterally no wheezing or crackles Heart regular rate and rhythm S1-S2, no rub or gallop Abdomen is soft nontender nondistended positive bowel sounds no hepatosplenomegaly Extremities no edema Neuro alert and orientated to 3 - Labs CBC & Chem 7: 11/12/18 03:24 11/12/18 03:24 Labs: Abnormal Lab Results - Last 24 Hours (Table) 11/11/18 11/11/18 11/11/18 Range/Units 16:59 17:34 17:34 RBC (4.30-5.90) m/uL Hgb (13.0-17.5) gm/dL Hct (39.0-53.0) % APTT 60.6 H (22.0-30.0) sec Glucose (74-99) mg/dL POC Glucose (mg/dL) 174 H (75-99) mg/dL Troponin I 1.080 H* (0.000-0.034) ng/mL Total Protein (6.3-8.2) g/dL Albumin (3.5-5.0) g/dL 11/11/18 11/12/18 11/12/18 Range/Units 21:28 03:24 03:24 RBC 3.57 L (4.30-5.90) m/uL Hgb 11.5 L (13.0-17.5) gm/dL Hct 34.1 L (39.0-53.0) % APTT (22.0-30.0) sec Glucose 138 H (74-99) mg/dL POC Glucose (mg/dL) 167 H (75-99) mg/dL Troponin I (0.000-0.034) ng/mL Total Protein 5.7 L (6.3-8.2) g/dL Albumin 3.1 L (3.5-5.0) g/dL 11/12/18 11/12/18 11/12/18 Range/Units 03:24 05:51 07:05 RBC (4.30-5.90) m/uL Hgb (13.0-17.5) gm/dL Hct (39.0-53.0) % APTT 46.6 H (22.0-30.0) sec Glucose (74-99) mg/dL POC Glucose (mg/dL) 131 H (75-99) mg/dL Troponin I 0.819 H* (0.000-0.034) ng/mL Total Protein (6.3-8.2) g/dL Albumin (3.5-5.0) g/dL 11/12/18 Range/Units 12:12 RBC (4.30-5.90) m/uL Hgb (13.0-17.5) gm/dL Hct (39.0-53.0) % APTT (22.0-30.0) sec Glucose (74-99) mg/dL POC Glucose (mg/dL) 175 H (75-99) mg/dL Troponin I (0.000-0.034) ng/mL Total Protein (6.3-8.2) g/dL Albumin (3.5-5.0) g/dL Assessment and Plan Assessment: 1. Diabetic ketoacidosis with blood sugar is elevated greater than 500. Patient started on insulin drip. Anion Gap Improving to 6 and CO2 25. Patient transitioned to subcu insulin. Patient maintained on 35 units subcu insulin nightly +5 units and sliding scale coverage with meals 2. Acute kidney injury with hyperkalemia. Creatinine elevated 2.04 and bun 37. Creatinine improving to 1.22 bun 30. Potassium 5.1. Resolved 3. Type 1 diabetes mellitus. Patient normally follows with endocrinology. Maintain on insulin pump insulin pump has been disconnected 4. History of factor V disorder 5. History of hyperlipidemia. Maintained on statin 6. History of coronary artery disease 7. History of chronic renal disease stage III. Patient does follow with nephrology services 8. History of neuropathy 9. History of lumbar laminectomy 10. History of depression 11. History of GERD 12. History of hearing disorder 13. History of chronic back pain 14. Essential hypertension 13. Nausea with vomiting likely related to DKA. Lipase 27. Continue Zofran. Ultrasound of abdomen ordered. GI consult placed amylase lipase ordered 14. Abnormal troponin. Troponin elevated at 1.530, 1.300 1.080 and 0.819. Cardiology services are following. Heparin drip has been DC'd. Per cardiology medically managed at this time. DVT prophylaxis heparin. GI prophylaxis Protonix I performed an examination of the patient and discussed their management with the Nurse Practitioner. I have reviewed the Nurse Practitioner's notes and agree with the documented findings and plan of care
--- NOTE | 2018-11-12 13:51 | P.PN ---
Subjective Progress Note Date: 11/12/18 This is a 68-year-old gentleman who follows regularly with Dr. LYNN Bhardwaj in the office, he has a known history of hypertension, diabetes, hyperlipidemia, factor V Leiden disorder, GERD, chronic renal disease, nicotine dependence, the patient did undergo cardiac catheterization in March of this year revealed moderate noncritical diffuse disease involving all 3 arteries with a right dominant system, normal filling pressures and no gradient across the aortic valve. Presented to the hospital initially with nausea and vomiting, patient was found at home to be quite lethargic, his glucose level was greater than 500. Patient had persistent nausea and for this reason a troponin level was ordered, he is also complaining of some acid reflux type discomfort in his mid sternal area. This occurs only after he drinks water. Chest x-ray did not reveal any acute cardiopulmonary process. EKG shows a sinus tachycardia with mild ST depression noted in the lateral leads. Mild elevation in aVR. Blood pressure 156/60 with a heart rate in the 70s, 94% on room air. White blood cell count 7.8, hemoglobin 10.9, platelet count 177, sodium 138, potassium 4.7, BUN 16 and creatinine 0.8. Magnesium 1.6, troponin 1.5, 1.3. At the time of my examination, patient still is having some mild nausea, he denies any chest discomfort. 11/12/2018 Patient was seen and examined this morning, blood pressure continues to be elevated, 159/90 and 162/110, we'll increase his dose of MISTY inhibitor and add a small dose of Norvasc today. Echocardiogram with Doppler study revealed normal left ventricular systolic function. Objective - Vital Signs Vital signs: Vital Signs Temp 98.5 F 11/12/18 11:11 Pulse 58 L 11/12/18 11:11 Resp 18 11/12/18 11:11 BP 159/84 11/12/18 11:11 Pulse Ox 97 11/12/18 11:11 Intake & Output 11/11/18 11/12/18 11/12/18 18:59 06:59 18:59 Intake Total 400 1140 845.258 Output Total 400 1925 Balance 0 -785 845.258 Weight 121.3 kg Intake: Intake, IV Titration 240 245.258 Amount Heparin Sod,Pork in 0.45% 245.258 NaCl 25,000 unit In 0.45 % NaCl 1 250ml.bag @ 8.2 UNITS/KG/HR 10.037 mls/hr IV .Q24H [facility] Rx#: [id number] Magnesium Sulfate-D5w Pmx 240 1 gm In Dextrose/Water 1 100ml.bag @ 100 mls/hr IVPB Q1H [facility] Rx#: [id number] Oral 400 900 600 Output: Urine 400 1925 Other: Voiding Method Urinal Urinal # Voids 1 - Exam PHYSICAL EXAMINATION: GENERAL: 68-year-old gentleman in no acute distress at the time of my examination HEENT: Head is atraumatic, normocephalic. Pupils equal, round. Sclera an icteric. Conjunctiva are clear. Mucous membranes of the mouth are moist. Neck is supple. There is no elevated jugular venous pressure. No carotid bruit is heard. HEART EXAMINATION: Heart S1, S2 normal. No murmur or gallop heard. CHEST EXAMINATION: Lungs are clear to auscultation and precussion. No chest wall tenderness is noted on palpation or with deep breathing. ABDOMEN: Soft, nontender. Bowel sounds are heard. No organomegaly noted. EXTREMITIES: 2+ peripheral pulses with no evidence of peripheral edema and no calf tenderness noted. NEUROLOGIC patient is awake, alert and oriented 3 . - Labs CBC & Chem 7: 11/12/18 03:24 11/12/18 03:24 Labs: Abnormal Lab Results - Last 24 Hours (Table) 11/11/18 11/11/18 11/11/18 Range/Units 16:59 17:34 17:34 RBC (4.30-5.90) m/uL Hgb (13.0-17.5) gm/dL Hct (39.0-53.0) % APTT 60.6 H (22.0-30.0) sec Glucose (74-99) mg/dL POC Glucose (mg/dL) 174 H (75-99) mg/dL Troponin I 1.080 H* (0.000-0.034) ng/mL Total Protein (6.3-8.2) g/dL Albumin (3.5-5.0) g/dL 11/11/18 11/12/18 11/12/18 Range/Units 21:28 03:24 03:24 RBC 3.57 L (4.30-5.90) m/uL Hgb 11.5 L (13.0-17.5) gm/dL Hct 34.1 L (39.0-53.0) % APTT (22.0-30.0) sec Glucose 138 H (74-99) mg/dL POC Glucose (mg/dL) 167 H (75-99) mg/dL Troponin I (0.000-0.034) ng/mL Total Protein 5.7 L (6.3-8.2) g/dL Albumin 3.1 L (3.5-5.0) g/dL 11/12/18 11/12/18 11/12/18 Range/Units 03:24 05:51 07:05 RBC (4.30-5.90) m/uL Hgb (13.0-17.5) gm/dL Hct (39.0-53.0) % APTT 46.6 H (22.0-30.0) sec Glucose (74-99) mg/dL POC Glucose (mg/dL) 131 H (75-99) mg/dL Troponin I 0.819 H* (0.000-0.034) ng/mL Total Protein (6.3-8.2) g/dL Albumin (3.5-5.0) g/dL 11/12/18 Range/Units 12:12 RBC (4.30-5.90) m/uL Hgb (13.0-17.5) gm/dL Hct (39.0-53.0) % APTT (22.0-30.0) sec Glucose (74-99) mg/dL POC Glucose (mg/dL) 175 H (75-99) mg/dL Troponin I (0.000-0.034) ng/mL Total Protein (6.3-8.2) g/dL Albumin (3.5-5.0) g/dL Assessment and Plan Plan: Assessment and plan: 1. Diabetic ketoacidosis with blood sugar is elevated greater than 500. 2. Acute kidney injury with hyperkalemia. 3. Type 1 diabetes mellitus. 4. History of factor V disorder 5. History of hyperlipidemia. 6. History of coronary artery disease, cardiac catheterization performed in March of this year which revealed moderate noncritical disease in all 3 vessels 7. History of chronic renal disease stage III. 8. History of neuropathy 9. History of lumbar laminectomy 10. History of depression 11. History of GERD 12. History of hearing disorder 13. History of chronic back pain 14. Essential hypertension 15. Nausea with vomiting likely related to DKA. 16. Abnormal troponin, patient denies any chest pressure heaviness, he is complaining of some midepigastric burning which reminds him of this GERD. EKG shows a normal sinus rhythm, sinus tachycardia with lateral ST depression and mild elevation in aVR. Abnormality in troponin could also be secondary to DKA Plan Echocardiogram with Doppler study revealed a normal left ventricular systolic function. We will increase the dose of MISTY inhibitor today and add a small dose of Norvasc to the medication regime. Discontinue IV heparin. Patient may be able to be discharged home once cleared by primary, we will make him a follow-up appointment with Dr. Donald Bhardwaj in the office post discharge. DNP note has been reviewed, I agree with a documented findings and plan of care. Patient was seen and examined.
[2018-11-12 14:36] LABS: Amylase 69 U/L (30-110)
[2018-11-12 17:32] LABS: Glucose,Whole Blood 152 mg/dL (75-99)
[2018-11-12 20:30] LABS: Glucose,Whole Blood 144 mg/dL (75-99)
[2018-11-12] MEDS: AMITRIPTYLINE HCL 25 MG TAB PO SCH (20:54)
[2018-11-12] MEDS: HEPARIN SODIUM,PORCINE 5,000 UNIT/ML 1 ML VIAL SQ SCH (20:55)
[2018-11-12] MEDS: INSULIN DETEMIR (LEVEMIR) 100 UNIT/ML SYR SQ SCH (20:57)
--- NOTE | 2018-11-13 00:42 | P.CONS ---
History of Present Illness - Reason for Consult Consult date: 11/12/18 Nausea Requesting physician: Ej Gibson - Chief Complaint Hyperglycemia - History of Present Illness 68-year-old male with multiple medical comorbidities including hyperlipidemia hypertension, chronic renal disease, neuropathy, diabetes mellitus, GERD and factor V Leiden disorder who presented to the hospital due to nausea and vomiting and uncontrolled blood sugars. At that time the patient was found to have positive acetone with a metabolic acidosis and a elevated blood sugar. The patient was started on treatment for diabetic ketoacidosis. The patient improved however has remained nauseated. He reports a long-standing history of reflux disease with associated K and dysphagia of both oropharyngeal and esophageal. He reports choking continue trying to swallow water. In addition will have sensation of food sticking in the esophagus. He's had evaluation in the past with both the EGD and colonoscopy last approximately 4 years ago which she reports was performed for evaluation of choking. He states he has decreased oral intake secondary to the nausea and vomiting. In addition he reports a total abdominal pain in the lower abdomen. Bowel movement baseline are every other day, however he feels somewhat more constipated since presentation. Review of Systems REVIEW OF SYSTEMS: CONSTITUTIONAL: Denies any fevers, chills, weight change or fatigue. CARDIOVASCULAR: Denies any chest pain, palpitations high or low blood pressures RESPIRATORY: Denies any shortness of breath, hemoptysis or cough. GENITOURINARY: No dysuria or hematuria. MUSCULOSKELETAL: No weakness reported. SKIN: Denies any new rashes or lesions, jaundice or pallor. PSYCHIATRIC: Denies any depression or anxiety. NEUROLOGY: Denies headache, denies any new focal deficits. EARS/NOSE/THROAT: No recent hearing change, congestion, nasal discharge or sore throat. EYES: No pain in eyes, discharge or change in vision. GASTROINTESTINAL: As per HPI. Past Medical History Past Medical History: Blood Disorder, Coronary Artery Disease (CAD), Dementia, Diabetes Mellitus, Eye Disorder, GERD/Reflux, Hearing Disorder / Deafness, Hyperlipidemia, Hypertension, Neurologic Disorder, Osteoarthritis (OA), Prostate Disorder, Renal Disease, Syncope Additional Past Medical History / Comment(s): IDDM type I with insulin pump, bilateral legs/feet/arms and hand neuropathy, chronic renal disease, difficulty swallowing, RLS, factor V, early dementia, BPH, bilateral tinnitis, R eye retinal bleeds x2, chronic low back pain with bilateral sciatica which is worse on the right side, bilateral shoulder and cervical pain, History of Any Multi-Drug Resistant Organisms: None Reported Past Surgical History: Adenoidectomy, Back Surgery, Heart Catheterization, Orthopedic Surgery, Tonsillectomy Additional Past Surgical History / Comment(s): Lumbar laminectomy, R knee cartildge surgery, bilateral carpal tunnel released, L wrist dequevain surgery, R rotator cuff repair, L foot pins and plates, EGD, colonoscopy, R eye laser eye surgery for retinal bleeds, bilateral cataract removals/lens implants. Past Anesthesia/Blood Transfusion Reactions: Motion Sickness Past Psychological History: Depression Additional Psychological History / Comment(s): Pt resides with his spouse and their adult son. Pt uses a walker prn. He drives. He is currently managing his own medications but admits this is getting more difficult. Smoking Status: Former smoker Past Alcohol Use History: None Reported Additional Past Alcohol Use History / Comment(s): Pt started smoking in 1962 and quit in 1987 Past Drug Use History: None Reported - Past Family History Brother(s) Family Medical History: Deep Vein Thrombosis (DVT) Mother Additional Family Medical History / Comment(s): Mother had palsey Father Family Medical History: COPD, Myocardial Infarction (OR) Additional Family Medical History / Comment(s): Father of COPD/OR at the age of 72 yrs. Medications and Allergies Home Medications Medication Instructions Recorded Confirmed Type Amitriptyline HCl [Elavil] 75 mg PO HS 10/16/13 11/09/18 History Aspirin 81 mg PO DAILY 10/16/13 11/09/18 History Cholecalciferol [Vitamin D3 (25 2,000 unit PO DAILY 10/16/13 11/09/18 History Mcg = 1000 Iu)] Citalopram Hydrobromide 20 mg PO DAILY 01/20/18 11/09/18 History [Citalopram HBr] Pantoprazole [Protonix] 40 mg PO BID 01/20/18 11/09/18 History metFORMIN HCL [Glucophage] 500 mg PO BID 03/20/18 11/09/18 History Atorvastatin [Lipitor] 40 mg PO DAILY 04/29/18 11/09/18 History Sodium Polystyrene Sulfon/Sorb 11.25 gm PO DIRECTED 04/29/18 11/09/18 History [SPS] rOPINIRole HCL [Requip] 0.5 mg PO HS 30 Days #30 tablet 05/09/18 11/09/18 Rx Insulin Aspart (For Pump) [NovoLOG 0.01 unit SQ-PUMP CONTINUOUS 11/09/18 11/09/18 History (For Pump)] Metoprolol Succinate [Toprol XL] 25 mg PO DAILY 11/09/18 11/09/18 History Tamsulosin [Flomax] 0.4 mg PO DAILY 11/09/18 11/09/18 History traMADol HCL [Ultram] 50 mg PO TID 11/09/18 11/09/18 History Allergies Allergy/AdvReac Type Severity Reaction Status Date / Time No Known Allergies Allergy Verified 11/09/18 09:05 Physical Exam Vitals: Vital Signs Temp Pulse Resp BP BP BP BP 11/12/18 23:41 62 17 11/12/18 23:38 98.3 F 62 17 11/12/18 20:00 98.3 F 62 18 11/12/18 15:34 69 18 139/62 91/49 106/58 11/12/18 11:11 98.5 F 58 L 18 159/84 11/12/18 09:00 99 F 70 18 181/87 11/12/18 04:00 98.2 F 70 18 156/70 11/12/18 00:00 73 17 BP Pulse Ox 11/12/18 23:41 11/12/18 23:38 144/70 95 11/12/18 20:00 153/77 95 11/12/18 15:34 95 11/12/18 11:11 162/110 97 11/12/18 09:00 198/92 99 11/12/18 04:00 95 11/12/18 00:00 Intake and Output 11/12/18 11/12/18 11/13/18 14:59 22:59 06:59 Intake Total 845.258 540 Output Total 600 400 Balance 245.258 140 Intake: Intake, IV Titration 245.258 Amount Heparin Sod,Pork in 0.45% 245.258 NaCl 25,000 unit In 0.45 % NaCl 1 250ml.bag @ 8.2 UNITS/KG/HR 10.037 mls/hr IV .Q24H [facility] Rx#: [id number] Oral 600 540 Output: Urine 600 400 Other: Voiding Method Urinal Urinal On physical examination, patient appears comfortable in no apparent distress. HEAD: Normocephalic, atraumatic. EYES: No scleral icterus. No conjunctival injection. MOUTH: No lesions, tongue midline. NECK: Trachea midline, no gross abnormalities. CHEST: Clear to auscultation with no wheezing or rhonchi appreciated. HEART: Regular rate and rhythm. ABDOMEN: Soft, obese. Bowel sounds are positive. No organomegaly. No guarding or rigidity. EXTREMITIES: No pedal edema. SKIN: No rashes, no jaundice. NEUROLOGIC: Alert and oriented x3. No focal deficits. Results CBC & Chem 7: 11/12/18 03:24 11/12/18 03:24 Labs: Abnormal Lab Results - Last 24 Hours (Table) 11/12/18 11/12/18 11/12/18 Range/Units 03:24 03:24 03:24 RBC 3.57 L (4.30-5.90) m/uL Hgb 11.5 L (13.0-17.5) gm/dL Hct 34.1 L (39.0-53.0) % APTT (22.0-30.0) sec Glucose 138 H (74-99) mg/dL POC Glucose (mg/dL) (75-99) mg/dL Troponin I 0.819 H* (0.000-0.034) ng/mL Total Protein 5.7 L (6.3-8.2) g/dL Albumin 3.1 L (3.5-5.0) g/dL 11/12/18 11/12/18 11/12/18 Range/Units 05:51 07:05 12:12 RBC (4.30-5.90) m/uL Hgb (13.0-17.5) gm/dL Hct (39.0-53.0) % APTT 46.6 H (22.0-30.0) sec Glucose (74-99) mg/dL POC Glucose (mg/dL) 131 H 175 H (75-99) mg/dL Troponin I (0.000-0.034) ng/mL Total Protein (6.3-8.2) g/dL Albumin (3.5-5.0) g/dL 08/22/19 08/22/19 08/22/19 Range/Units 13:47 17:16 20:28 RBC (4.30-5.90) m/uL Hgb (13.0-17.5) gm/dL Hct (39.0-53.0) % APTT 52.0 H (22.0-30.0) sec Glucose (74-99) mg/dL POC Glucose (mg/dL) 152 H 144 H (75-99) mg/dL Troponin I (0.000-0.034) ng/mL Total Protein (6.3-8.2) g/dL Albumin (3.5-5.0) g/dL Chest x-ray: report reviewed (Chest x-ray with no acute pulmonary findings noted.) Assessment and Plan (1) Nausea and vomiting Narrative/Plan: 68-year-old male with multiple medical comorbidities including diabetes mellitus presented to the hospital with uncontrolled blood sugars and nausea and vomiting. Found to be in diabetic ketoacidosis patient was treated appropriately. He continues to report nausea and vomiting. He has had long- standing history of symptoms of uncontrolled reflux disease as well as nausea and vomiting. Evaluated 4 years ago with EGD which was negative. Likely multifactorial in the setting of suspected diabetic gastroparesis, uncontrolled GERD, uncontrolled blood sugars with other etiology is not excluded. Current Visit: Yes Status: Acute Code(s): R11.2 - NAUSEA WITH VOMITING, UNSPECIFIED SNOMED Code(s): 82831951 (2) Diabetic ketoacidosis Current Visit: Yes Status: Acute Code(s): E11.10 - TYPE 2 DIABETES MELLITUS WITH KETOACIDOSIS WITHOUT COMA SNOMED Code(s): 015196971 (3) GERD (gastroesophageal reflux disease) Current Visit: Yes Status: Acute Code(s): K21.9 - GASTRO-ESOPHAGEAL REFLUX DISEASE WITHOUT ESOPHAGITIS SNOMED Code(s): 412399853 (4) Dysphagia Narrative/Plan: Patient reports both symptoms of esophageal dysphagia which has been evaluated with EGD in the past which was negative as well as oropharyngeal dysphagia with reports of choking when swallowing liquids. Current Visit: Yes Status: Acute Code(s): R13.10 - DYSPHAGIA, UNSPECIFIED SNOMED Code(s): 62397050 Plan: Supportive care Okay for diet Continue Protonix twice daily Will add Pepcid daily at bedtime Will order evaluation by speech language pathology Discussion with the patient and his would like medical management given prior EGD, however if symptoms continue patient's can be reevaluated for endoscopic evaluation either prior to discharge or in follow-up Continue antiemetic therapy Thank you for allowing us to participate in the care of the patient we will co savana to follow
[2018-11-13 06:31] LABS: Basophils % (A) 0 %; Eosinophils # (A) 0.3 k/uL (0-0.7); Eosinophils % (A) 5 %; HCT 35.4 % (39.0-53.0); HGB 11.4 gm/dL (13.0-17.5); Lymphocytes # (A) 2.6 k/uL (1.0-4.8); Lymphocytes % (A) 42 %; MCH 30.8 pg (25.0-35.0); MCHC 32.1 g/dL (31.0-37.0); MCV 96.1 fL (80.0-100.0); Mean Platelet Volume 7.5; Monocytes # (A) 0.4 k/uL (0-1.0); Monocytes % (A) 6 %; Neutrophils # (A) 2.7 k/uL (1.3-7.7); Neutrophils % (A) 44 %; Platelet Count 188 k/uL (150-450); RBC 3.69 m/uL (4.30-5.90); RDW 13.5 % (11.5-15.5); WBC 6.3 k/uL (3.8-10.6)
[2018-11-13 06:36] LABS: ALT 21 U/L (21-72); AST 18 U/L (17-59); African American GFR (CKD) >90 (>60 ml/min/1.73 sqM); Albumin 3.2 g/dL (3.5-5.0); Alkaline Phosphatase 56 U/L (38-126); Anion Gap 6 mmol/L; Blood Urea Nitrogen 10 mg/dL (9-20); Carbon Dioxide 30 mmol/L (22-30); Chloride 106 mmol/L (98-107); Potassium 4.8 mmol/L (3.5-5.1); Sodium 142 mmol/L (137-145); Total Bilirubin 0.6 mg/dL (0.2-1.3); Total Protein 5.9 g/dL (6.3-8.2)
[2018-11-13 06:49] LABS: Glucose 48 mg/dL (74-99)
[2018-11-13 06:52] LABS: Glucose,Whole Blood 56 mg/dL (75-99)
[2018-11-13 07:24] LABS: Glucose,Whole Blood 119 mg/dL (75-99)
--- NOTE | 2018-11-13 08:05 | US ---
EXAMINATION TYPE: US abdomen complete DATE OF EXAM: 11/13/2018 COMPARISON: NONE CLINICAL HISTORY: nausea. abd pain with nausea for over 1 week EXAM MEASUREMENTS: Liver Length: 17.4 cm Gallbladder Wall: 0.3 cm CBD: 0.7 cm Spleen: 11.4 cm Right Kidney: 11.0 x 5.4 x 5.6 cm Left Kidney: 10.9 x 5.1 x 6.3 cm Pancreas: limited views Liver: bowel gas led to intercostal images only, difficult to penetrate Gallbladder: wnl Evidence for sonographic Owens's sign: no CBD: wnl Spleen: wnl Right Kidney: wnl Left Kidney: wnl Upper IVC: wnl Abd Aorta: limited views due to gas IMPRESSION: 1. Visualized abdomen is unremarkable. There is limitation due to bowel gas. 2. Hepatomegaly with mild fatty infiltration.
[2018-11-13] MEDS: INSULIN ASPART (NovoLOG) 100 UNIT/ML VIAL SQ SCH ×7 (08:35→21:04)
[2018-11-13] MEDS: PANTOPRAZOLE 40 MG TABLET PO SCH ×2 (08:43→21:02)
[2018-11-13] MEDS: METOPROLOL SUCCINATE (ER) 25 MG TAB.ER.24H PO SCH (08:43)
[2018-11-13] MEDS: ATORVASTATIN 40 MG TAB PO SCH (08:43)
[2018-11-13] MEDS: CHOLECALCIFEROL 1,000 UNIT TAB PO SCH (08:43)
[2018-11-13] MEDS: TAMSULOSIN 0.4 MG CAP.ER.24H PO SCH (08:44)
[2018-11-13] MEDS: CITALOPRAM HYDROBROMIDE 20 MG TAB PO SCH (08:44)
[2018-11-13] MEDS: amLODIPine 5 MG TAB PO SCH (08:44)
[2018-11-13] MEDS: HEPARIN SODIUM,PORCINE 5,000 UNIT/ML 1 ML VIAL SQ SCH ×2 (08:50→21:03)
[2018-11-13] MEDS ORDERED: LISINOPRIL 10 MG TAB PO SCH (09:00)
[2018-11-13] MEDS: CLOPIDOGREL 75 MG TAB PO SCH (09:49)
[2018-11-13] MEDS: traMADol 50 MG TAB PO SCH ×3 (09:49→21:01)
[2018-11-13] MEDS: ASPIRIN 81 MG PO SCH (09:49)
[2018-11-13 12:03] LABS: Glucose,Whole Blood 210 mg/dL (75-99)
--- NOTE | 2018-11-13 12:08 | P.PN ---
Subjective Patient is seen in follow-up for acute kidney injury and chronic knee disease. Patient has chronic kidney disease stage III with baseline creatinine near 1-1.2 secondary to chronic interstitial nephritis due to chronic nonsteroidal use. Renal function is back to baseline. Oral intake is fair. No vomiting or diarrhea. Blood pressures better controlled. No dizziness or syncopal episodes. Vital signs are stable. General: The patient appeared well nourished and normally developed. HEENT: Head exam is unremarkable. Neck is without jugular venous distension. LUNGS: Lungs are clear to auscultation and percussion. Breath sounds decreased. HEART: Rate and Rhythm are regular. First and second heart sounds normal. No murmurs, rubs or gallops. ABDOMEN: Abdominal exam reveals normal bowel sounds. Non-tender and non- distended. No evidence of peritonitis. EXTREMITITES: No clubbing, cyanosis, or edema. Objective - Vital Signs Vital signs: Vital Signs Temp 98.1 F 11/13/18 07:38 Pulse 63 11/13/18 07:38 Resp 20 11/13/18 08:00 BP 162/73 11/13/18 07:38 Pulse Ox 99 11/13/18 07:38 Intake & Output 11/12/18 11/13/18 11/13/18 18:59 06:59 18:59 Intake Total 1085.258 300 240 Output Total 600 1900 300 Balance 485.258 -1600 -60 Weight 120.1 kg Intake: Intake, IV Titration 245.258 Amount Heparin Sod,Pork in 0.45% 245.258 NaCl 25,000 unit In 0.45 % NaCl 1 250ml.bag @ 8.2 UNITS/KG/HR 10.037 mls/hr IV .Q24H [facility] Rx#: [id number] Oral 840 300 240 Output: Urine 600 1900 300 Other: Voiding Method Urinal Urinal - Labs CBC & Chem 7: 11/13/18 05:58 11/13/18 05:58 Labs: Abnormal Lab Results - Last 24 Hours (Table) 11/12/18 11/12/18 11/12/18 Range/Units 12:12 13:47 17:16 RBC (4.30-5.90) m/uL Hgb (13.0-17.5) gm/dL Hct (39.0-53.0) % APTT 52.0 H (22.0-30.0) sec Glucose (74-99) mg/dL POC Glucose (mg/dL) 175 H 152 H (75-99) mg/dL Total Protein (6.3-8.2) g/dL Albumin (3.5-5.0) g/dL 11/12/18 11/13/18 11/13/18 Range/Units 20:28 05:58 05:58 RBC 3.69 L (4.30-5.90) m/uL Hgb 11.4 L (13.0-17.5) gm/dL Hct 35.4 L (39.0-53.0) % APTT (22.0-30.0) sec Glucose 48 L* (74-99) mg/dL POC Glucose (mg/dL) 144 H (75-99) mg/dL Total Protein 5.9 L (6.3-8.2) g/dL Albumin 3.2 L (3.5-5.0) g/dL 11/13/18 11/13/18 11/13/18 Range/Units 06:50 07:20 12:00 RBC (4.30-5.90) m/uL Hgb (13.0-17.5) gm/dL Hct (39.0-53.0) % APTT (22.0-30.0) sec Glucose (74-99) mg/dL POC Glucose (mg/dL) 56 L 119 H 210 H (75-99) mg/dL Total Protein (6.3-8.2) g/dL Albumin (3.5-5.0) g/dL Assessment and Plan Plan: Assessment: 1. Acute kidney injury mostly prerenal secondary to intravascular volume depletion secondary to hyperglycemia. Creatinine was 2.04 on admission and is down to 0.89 today. No proteinuria on UA. 2. Chronic kidney disease stage III with baseline creatinine near 1-1.2 secondary to chronic interstitial nephritis from long-term nonsteroidal use. 3. Hyperkalemia secondary to acute kidney injury, metabolic acidosis and hyperglycemia. Better. 4. DKA status post insulin drip. Better. 5. Metabolic acidosis secondary to DKA and acute kidney injury. Resolved. 6. Hypertension with chronic kidney disease. Better. Plan: Maintain current antihypertensives. Encourage oral intake. Avoid nephrotoxins. Stressed compliance with insulin and medications.
[2018-11-13] MEDS: metFORMIN 500 MG TAB PO SCH ×2 (12:30→17:28)
[2018-11-13] MEDS: LISINOPRIL 5 MG TAB PO SCH (13:05)
--- NOTE | 2018-11-13 13:40 | P.DS ---
Providers Date of admission: 11/09/18 12:22 Expected date of discharge: 11/13/18 Attending physician: Ej Gibson Consults: 11/09/18 15:48 Consult Physician Routine Consulting Provider: Marysol Smith Consult Reason/Comments: acute kidney injury Do you want consulting provider notified?: Yes 11/11/18 11:19 Consult Physician Routine Consulting Provider: Freddy Street Consult Reason/Comments: positive troponin Do you want consulting provider notified?: Yes 11/12/18 13:04 Consult Physician Routine Consulting Provider: Jessica White Consult Reason/Comments: nausea Do you want consulting provider notified?: Yes Primary care physician: Ej Paige [facility] Course: Discharge diagnosis 1. Diabetic ketoacidosis with blood sugar is elevated greater than 500. Patient started on insulin drip. Anion Gap Improving to 6 and CO2 25. Patient transitioned to subcu insulin. Patient maintained on 35 units subcu insulin nightly +5 units and sliding scale coverage with meals 2. Acute kidney injury with hyperkalemia. Creatinine elevated 2.04 and bun 37. Creatinine improving to 1.22 bun 30. Potassium 5.1. Resolved 3. Type 1 diabetes mellitus. Patient normally follows with endocrinology. Maintain on insulin pump insulin pump has been disconnected 4. History of factor V disorder 5. History of hyperlipidemia. Maintained on statin 6. History of coronary artery disease 7. History of chronic renal disease stage III. Patient does follow with nephrology services 8. History of neuropathy 9. History of lumbar laminectomy 10. History of depression 11. History of GERD 12. History of hearing disorder 13. History of chronic back pain 14. Essential hypertension 13. Nausea with vomiting likely related to DKA. Lipase 27. Continue Zofran. Ultrasound of abdomen completed showing hepatomegaly with mild fatty infiltration. Amylase 69 lipase 90. Per GI services Pepcid has been added. If symptoms continue to new patient to follow-up outpatient for possible endoscopic evaluation. 14. Abnormal troponin. Troponin elevated at 1.530, 1.300 1.080 and 0.819. Cardiology services are following. Heparin drip has been DC'd. Per cardiology medically managed at this time. Plavix Norvasc and lisinopril added per cardiology Hospital course This is a 68-year-old male patient who presented with complaints of elevated blood sugar with nausea and vomiting. Patient reports that he forgot to fill his insulin pump yesterday and went with family reunion. According to ER report patient was found to be lethargic with an elevated glucose greater than 500. Patient has past medical history of type 1 insulin-dependent diabetes which she follows with endocrine and maintained on an insulin pump. Additional medical history includes factor V disorder, diabetes mellitus, GERD, hyperlipidemia, hypertension, prostate disorder, chronic renal disease in which he does follow with nephrology, and neuropathy. Patient reports that he feels like he's been getting more forgetful lately diabetes education has been consulted. Insulin pump has been disconnected. Patient started on insulin drip for DKA protocol. Urine was positive for ketones. Anion Gap 24 CO2 12. Acetone positive. Repeat electrolytes ordered for 1600. At this time patient is nauseated Zofran has been ordered. Patient denies any chest pain or shortness of breath. Patient denies any urinary burning or frequency. Patient denies any recent illness prior to episode of elevated blood sugar On 11/10/2018 patient's alert and oriented 3. Patient was taken off insulin drip last night transition to long-acting and sliding scale coverage. At this time patient reports improvement with his nausea. Patient denies any chest pain or shortness of breath. Patient denies any diarrhea. Patient denies any urinary burning or frequency On 11/11/2017 patient's alert and oriented 3. Patient is still complaining of some nausea. Patient did report he had normal bowel movement last night. Patient remains off insulin drip. Abdomen is nondistended. Patient remains on clear liquid diet. Patient denies any chest pain or shortness of breath. Patient denies any diarrhea. Patient denies any urinary burning or frequency. on 11/12/2018 patient's alert and oriented 3. Patient still complaining of nausea with vomiting. Amylase lipase ultrasound of abdomen and GI consult placed. Discussed case with cardiology services heparin drip has been DC'd medically managed at this time. Patient denies chest pain or shortness of breath. Patient denies nausea vomiting or diarrhea. Patient denies any urinary burning or frequency. On 11/13/2018 patient's alert and oriented 3. Patient was evaluated by GI services. No further workup to be completed inpatient. Pepcid added. Patient was evaluated by speech pathology no limitations at this time. Insulin pump to be DC'd this was discussed with patient. Patient will be DC'd on 30 units of long-acting insulin +5 units and sliding scale coverage. Patient to follow-up outpatient with endocrinology. Patient verbalized understanding. At this time patient denies chest pain or shortness of breath. Patient denies nausea vomiting or diarrhea. Patient denies any urinary burning or frequency. I performed an examination of the patient and discussed their management with the Nurse Practitioner. I have reviewed the Nurse Practitioner's notes and agree with the documented findings and plan of care Patient Condition at Discharge: Stable Plan - Discharge Summary Discharge Rx Participant: No New Discharge Prescriptions: New Insulin Detemir (Levemir) [Levemir] 30 unit SQ HS #1 vial amLODIPine [Norvasc] 5 mg PO DAILY 30 Days #30 tab INSULIN ASPART (NovoLOG) [NovoLOG (formulary)] 5 unit SQ AC-TID #1 vial INSULIN ASPART (NovoLOG) [NovoLOG (formulary)] 0 unit SQ ACHS #1 vial Famotidine [Pepcid] 40 mg PO HS 30 Days #30 tab Clopidogrel [Plavix] 75 mg PO DAILY 30 Days #30 tab Lisinopril [Zestril] 5 mg PO 1200 30 Days #30 tab Continue Aspirin 81 mg PO DAILY Cholecalciferol [Vitamin D3 (25 Mcg = 1000 Iu)] 2,000 unit PO DAILY Amitriptyline HCl [Elavil] 75 mg PO HS Pantoprazole [Protonix] 40 mg PO BID Citalopram Hydrobromide [Citalopram HBr] 20 mg PO DAILY metFORMIN HCL [Glucophage] 500 mg PO BID Sodium Polystyrene Sulfon/Sorb [SPS] 11.25 gm PO DIRECTED Atorvastatin [Lipitor] 40 mg PO DAILY rOPINIRole HCL [Requip] 0.5 mg PO HS 30 Days #30 tablet Metoprolol Succinate [Toprol XL] 25 mg PO DAILY Tamsulosin [Flomax] 0.4 mg PO DAILY traMADol HCL [Ultram] 50 mg PO TID Discontinued Insulin Aspart (For Pump) [NovoLOG (For Pump)] 0.01 unit SQ-PUMP CONTINUOUS Discharge Medication List Amitriptyline HCl [Elavil] 75 mg PO HS 10/16/13 [History] Aspirin 81 mg PO DAILY 10/16/13 [History] Cholecalciferol [Vitamin D3 (25 Mcg = 1000 Iu)] 2,000 unit PO DAILY 10/16/13 [History] Citalopram Hydrobromide [Citalopram HBr] 20 mg PO DAILY 01/20/18 [History] Pantoprazole [Protonix] 40 mg PO BID 01/20/18 [History] metFORMIN HCL [Glucophage] 500 mg PO BID 03/20/18 [History] Atorvastatin [Lipitor] 40 mg PO DAILY 04/29/18 [History] Sodium Polystyrene Sulfon/Sorb [SPS] 11.25 gm PO DIRECTED 04/29/18 [History] rOPINIRole HCL [Requip] 0.5 mg PO HS 30 Days #30 tablet 05/09/18 [Rx] Metoprolol Succinate [Toprol XL] 25 mg PO DAILY 11/09/18 [History] Tamsulosin [Flomax] 0.4 mg PO DAILY 11/09/18 [History] traMADol HCL [Ultram] 50 mg PO TID 11/09/18 [History] Clopidogrel [Plavix] 75 mg PO DAILY 30 Days #30 tab 11/13/18 [Rx] Famotidine [Pepcid] 40 mg PO HS 30 Days #30 tab 11/13/18 [Rx] INSULIN ASPART (NovoLOG) [NovoLOG (formulary)] 0 unit SQ ACHS #1 vial 11/13/18 [Rx] INSULIN ASPART (NovoLOG) [NovoLOG (formulary)] 5 unit SQ AC-TID #1 vial 11/13/18 [Rx] Insulin Detemir (Levemir) [Levemir] 30 unit SQ HS #1 vial 11/13/18 [Rx] Lisinopril [Zestril] 5 mg PO 1200 30 Days #30 tab 11/13/18 [Rx] amLODIPine [Norvasc] 5 mg PO DAILY 30 Days #30 tab 11/13/18 [Rx] Follow up Appointment(s)/Referral(s): Librado Bhardwaj MD [STAFF PHYSICIAN] - 1 Week [facility], [NON-STAFF] - Ej Gibson MD [Primary Care Provider] - 1-2 days Activity/Diet/Wound Care/Special Instructions: Insulin pump to be DC'd. Subcu insulin ordered. Patient to follow-up with endocrinology Diet carb consistent diabetic diet Activity as tolerated Discharge Disposition: HOME SELF-CARE
[2018-11-13 16:50] LABS: Glucose,Whole Blood 206 mg/dL (75-99)
[2018-11-13] MEDS ORDERED: FAMOTIDINE 20 MG TAB PO SCH (21:00)
[2018-11-13] MEDS ORDERED: INSULIN DETEMIR (LEVEMIR) 100 UNIT/ML SYR SQ SCH (21:00)
[2018-11-13] MEDS: AMITRIPTYLINE HCL 25 MG TAB PO SCH (21:02)
[2018-11-13 21:03] LABS: Glucose,Whole Blood 171 mg/dL (75-99)
[2018-11-14 06:26] LABS: Basophils % (A) 0 %; Eosinophils # (A) 0.3 k/uL (0-0.7); Eosinophils % (A) 5 %; HCT 34.4 % (39.0-53.0); HGB 11.4 gm/dL (13.0-17.5); Lymphocytes # (A) 2.3 k/uL (1.0-4.8); Lymphocytes % (A) 36 %; MCH 31.4 pg (25.0-35.0); MCHC 33.1 g/dL (31.0-37.0); MCV 94.7 fL (80.0-100.0); Mean Platelet Volume 8.1; Monocytes # (A) 0.4 k/uL (0-1.0); Monocytes % (A) 7 %; Neutrophils # (A) 3.1 k/uL (1.3-7.7); Neutrophils % (A) 49 %; Platelet Count 208 k/uL (150-450); RBC 3.63 m/uL (4.30-5.90); RDW 14.5 % (11.5-15.5); WBC 6.3 k/uL (3.8-10.6)
[2018-11-14 07:11] LABS: Glucose,Whole Blood 69 mg/dL (75-99)
[2018-11-14 07:28] LABS: Glucose,Whole Blood 58 mg/dL (75-99)
[2018-11-14] MEDS: INSULIN ASPART (NovoLOG) 100 UNIT/ML VIAL SQ SCH ×6 (07:29→10:32)
[2018-11-14] MEDS: metFORMIN 500 MG TAB PO SCH ×2 (07:29→10:31)
[2018-11-14 07:49] LABS: Glucose,Whole Blood 68 mg/dL (75-99)
[2018-11-14 08:10] LABS: Glucose,Whole Blood 74 mg/dL (75-99)
[2018-11-14] MEDS: amLODIPine 5 MG TAB PO SCH (08:16)
[2018-11-14] MEDS: HEPARIN SODIUM,PORCINE 5,000 UNIT/ML 1 ML VIAL SQ SCH (08:16)
[2018-11-14] MEDS: CITALOPRAM HYDROBROMIDE 20 MG TAB PO SCH (08:16)
[2018-11-14] MEDS: traMADol 50 MG TAB PO SCH ×2 (08:16→10:31)
[2018-11-14] MEDS: CLOPIDOGREL 75 MG TAB PO SCH (08:16)
[2018-11-14] MEDS: METOPROLOL SUCCINATE (ER) 25 MG TAB.ER.24H PO SCH (08:17)
[2018-11-14] MEDS: ASPIRIN 81 MG PO SCH (08:17)
[2018-11-14] MEDS: ATORVASTATIN 40 MG TAB PO SCH (08:17)
[2018-11-14] MEDS: CHOLECALCIFEROL 1,000 UNIT TAB PO SCH (08:17)
[2018-11-14] MEDS: TAMSULOSIN 0.4 MG CAP.ER.24H PO SCH (08:17)
[2018-11-14] MEDS: PANTOPRAZOLE 40 MG TABLET PO SCH (08:17)
[2018-11-14 08:29] VITALS: BP 134/58; PULSE 68; RESP 18; TEMP 98
--- NOTE | 2018-11-14 09:13 | P.PN ---
Subjective Patient is seen in follow-up for acute kidney injury and chronic knee disease. Patient has chronic kidney disease stage III with baseline creatinine near 1-1.2 secondary to chronic interstitial nephritis due to chronic nonsteroidal use. Renal function is back to baseline. Oral intake is fair. No vomiting or diarrhea. Blood pressure is better controlled. No dizziness or syncopal episodes. Vital signs are stable. General: The patient appeared well nourished and normally developed. HEENT: Head exam is unremarkable. Neck is without jugular venous distension. LUNGS: Lungs are clear to auscultation and percussion. Breath sounds decreased. HEART: Rate and Rhythm are regular. First and second heart sounds normal. No murmurs, rubs or gallops. ABDOMEN: Abdominal exam reveals normal bowel sounds. Non-tender and non- distended. No evidence of peritonitis. EXTREMITITES: No clubbing, cyanosis, or edema. Objective - Vital Signs Vital signs: Vital Signs Temp 98.0 F 11/14/18 08:22 Pulse 68 11/14/18 08:22 Resp 18 11/14/18 08:22 BP 134/58 11/14/18 08:22 Pulse Ox 98 11/14/18 08:22 Intake & Output 11/13/18 11/14/18 11/14/18 18:59 06:59 18:59 Intake Total 240 100 338 Output Total 300 200 Balance -60 -100 338 Weight 118.5 kg Intake: Oral 240 100 338 Output: Urine 300 200 Other: Voiding Method Toilet Toilet Toilet Urinal Urinal Urinal # Voids 3 - Labs CBC & Chem 7: 11/14/18 05:59 11/13/18 05:58 Labs: Abnormal Lab Results - Last 24 Hours (Table) 11/13/18 11/13/18 11/13/18 Range/Units 12:00 16:35 20:57 RBC (4.30-5.90) m/uL Hgb (13.0-17.5) gm/dL Hct (39.0-53.0) % POC Glucose (mg/dL) 210 H 206 H 171 H (75-99) mg/dL 11/14/18 11/14/18 11/14/18 Range/Units 05:59 07:09 07:27 RBC 3.63 L (4.30-5.90) m/uL Hgb 11.4 L (13.0-17.5) gm/dL Hct 34.4 L (39.0-53.0) % POC Glucose (mg/dL) 69 L 58 L (75-99) mg/dL 11/14/18 11/14/18 Range/Units 07:48 08:09 RBC (4.30-5.90) m/uL Hgb (13.0-17.5) gm/dL Hct (39.0-53.0) % POC Glucose (mg/dL) 68 L 74 L (75-99) mg/dL Assessment and Plan Plan: Assessment: 1. Acute kidney injury mostly prerenal secondary to intravascular volume depletion secondary to hyperglycemia. Creatinine was 2.04 on admission and is down to 0.89 today. No proteinuria on UA. 2. Chronic kidney disease stage III with baseline creatinine near 1-1.2 secondary to chronic interstitial nephritis from long-term nonsteroidal use. 3. Hyperkalemia secondary to acute kidney injury, metabolic acidosis and hyperglycemia. Better. 4. DKA status post insulin drip. Better. 5. Metabolic acidosis secondary to DKA and acute kidney injury. Resolved. 6. Hypertension with chronic kidney disease. Better. Plan: Maintain current antihypertensives. Encourage oral intake. Avoid nephrotoxins. Stressed compliance with insulin and medications. Stable to be discharged home from nephrology standpoint. Follow up outpatient in 2 weeks.
--- NOTE | 2018-11-14 10:12 | P.PN ---
Subjective Progress Note Date: 11/14/18 This is a 68-year-old male patient who presented with complaints of elevated blood sugar with nausea and vomiting. Patient reports that he forgot to fill his insulin pump yesterday and went with family reunion. According to ER report patient was found to be lethargic with an elevated glucose greater than 500. Patient has past medical history of type 1 insulin-dependent diabetes which she follows with endocrine and maintained on an insulin pump. Additional medical history includes factor V disorder, diabetes mellitus, GERD, hyperlipidemia, hypertension, prostate disorder, chronic renal disease in which he does follow with nephrology, and neuropathy. Patient reports that he feels like he's been getting more forgetful lately diabetes education has been consulted. Insulin pump has been disconnected. Patient started on insulin drip for DKA protocol. Urine was positive for ketones. Anion Gap 24 CO2 12. Acetone positive. Repeat electrolytes ordered for 1600. At this time patient is nauseated Zofran has been ordered. Patient denies any chest pain or shortness of breath. Patient denies any urinary burning or frequency. Patient denies any recent illness prior to episode of elevated blood sugar On 11/10/2018 patient's alert and oriented 3. Patient was taken off insulin drip last night transition to long-acting and sliding scale coverage. At this time patient reports improvement with his nausea. Patient denies any chest pain or shortness of breath. Patient denies any diarrhea. Patient denies any urinary burning or frequency On 11/11/2017 patient's alert and oriented 3. Patient is still complaining of some nausea. Patient did report he had normal bowel movement last night. Patient remains off insulin drip. Abdomen is nondistended. Patient remains on clear liquid diet. Patient denies any chest pain or shortness of breath. Patient denies any diarrhea. Patient denies any urinary burning or frequency. on 11/12/2018 patient's alert and oriented 3. Patient still complaining of nausea with vomiting. Amylase lipase ultrasound of abdomen and GI consult placed. Discussed case with cardiology services heparin drip has been DC'd medically managed at this time. Patient denies chest pain or shortness of breath. Patient denies nausea vomiting or diarrhea. Patient denies any urinary burning or frequency. On 11/13/2018 patient's alert and oriented 3. Patient was evaluated by GI services. No further workup to be completed inpatient. Pepcid added. Patient was evaluated by speech pathology no limitations at this time. Insulin pump to be DC'd this was discussed with patient. Patient will be DC'd on 30 units of long-acting insulin +5 units and sliding scale coverage. Patient to follow-up outpatient with endocrinology. Patient verbalized understanding. At this time patient denies chest pain or shortness of breath. Patient denies nausea vomiting or diarrhea. Patient denies any urinary burning or frequency. On 11/14/2018 patient was seen and examined on the medical floor he was unable to go home yesterday because he was unable to afford the $400-$500 dunbar of his insulin, samples of Lantus and Apidra were brought from the office and given to patient this morning full instruction about using Lantus 25 units at bedtime and Apidra 5 units plus a sliding scale before each meal were given to patients he was also given syringes and needles. He will follow-up in the office in 2-3 days to assess glucose control he will also follow-up with his 3d specialist as soon as possible to assess why his insulin pump is not functioning well and returned to his routine with his insulin pump. Objective - Vital Signs Vital signs: Vital Signs Temp 98.0 F 11/14/18 08:22 Pulse 68 11/14/18 08:22 Resp 18 11/14/18 08:22 BP 134/58 11/14/18 08:22 Pulse Ox 98 11/14/18 08:22 Intake & Output 11/13/18 11/14/18 11/14/18 18:59 06:59 18:59 Intake Total 240 100 338 Output Total 300 200 Balance -60 -100 338 Weight 118.5 kg Intake: Oral 240 100 338 Output: Urine 300 200 Other: Voiding Method Toilet Toilet Toilet Urinal Urinal Urinal # Voids 3 - Exam In general patient is alert and oriented 3 in no apparent distress Head normocephalic and atraumatic Neck supple no JVD no goiter Lungs clear to auscultation bilaterally no wheezing or crackles Heart regular rate and rhythm S1-S2, no rub or gallop Abdomen is soft nontender nondistended positive bowel sounds no hepa tosplenomegaly Extremities no edema no cyanosis or clubbing Neuro alert and orientated to 3 - Labs CBC & Chem 7: 11/14/18 05:59 08/23/19 05:58 Labs: Abnormal Lab Results - Last 24 Hours (Table) 11/13/18 11/13/18 11/13/18 Range/Units 12:00 16:35 20:57 RBC (4.30-5.90) m/uL Hgb (13.0-17.5) gm/dL Hct (39.0-53.0) % POC Glucose (mg/dL) 210 H 206 H 171 H (75-99) mg/dL 11/14/18 11/14/18 11/14/18 Range/Units 05:59 07:09 07:27 RBC 3.63 L (4.30-5.90) m/uL Hgb 11.4 L (13.0-17.5) gm/dL Hct 34.4 L (39.0-53.0) % POC Glucose (mg/dL) 69 L 58 L (75-99) mg/dL 11/14/18 11/14/18 Range/Units 07:48 08:09 RBC (4.30-5.90) m/uL Hgb (13.0-17.5) gm/dL Hct (39.0-53.0) % POC Glucose (mg/dL) 68 L 74 L (75-99) mg/dL Assessment and Plan Plan: 1. Diabetic ketoacidosis with blood sugar is elevated greater than 500. Patient started on insulin drip. Anion Gap Improving to 6 and CO2 25. Patient transitioned to subcu insulin. Patient maintained on 35 units subcu insulin nightly +5 units and sliding scale coverage with meals 2. Acute kidney injury with hyperkalemia. Creatinine elevated 2.04 and bun 37. Creatinine improving to 1.22 bun 30. Potassium 5.1. Resolved 3. Type 1 diabetes mellitus. Patient normally follows with endocrinology. Maintain on insulin pump insulin pump has been disconnected 4. History of factor V disorder 5. History of hyperlipidemia. Maintained on statin 6. History of coronary artery disease 7. History of chronic renal disease stage III. Patient does follow with nephrology services 8. History of neuropathy 9. History of lumbar laminectomy 10. History of depression 11. History of GERD 12. History of hearing disorder 13. History of chronic back pain 14. Essential hypertension 13. Nausea with vomiting likely related to DKA. Lipase 27. Continue Zofran. Ultrasound of abdomen ordered. GI consult placed amylase lipase ordered 14. Abnormal troponin. Troponin elevated at 1.530, 1.300 1.080 and 0.819. Cardiology services are following. Heparin drip has been DC'd. Per cardiology medically managed at this time. 15. This morning glucose level was low again at 69 dose of Lantus at bedtime will be changed to 25 units patient was given instructions he will also receive Apidra 5 units before each meal plus a sliding scale he was given a copy of the sliding scale he was given samples of Lantus and Apidra and samples of syringes and needles follow up in our office in 2-3 days. Follow-up with 3d specialist as soon as possible to restart his usual routine with his insulin pump. DVT prophylaxis heparin. GI prophylaxis Protonix
[2018-11-14] MEDS: LISINOPRIL 5 MG TAB PO SCH (10:31)
== END 2018-11-14 11:09 | disposition home health service (06) | DRG 638 ==
LOC: EC 08:49 → 3SCARD 12:22
PROVIDERS: ADMIT Internal Medicine; ATTEND Internal Medicine
DX: E10.10 Type 1 diabetes mellitus with ketoacidosis without coma (principal); D68.51 Activated protein C resistance; N17.9 Acute kidney failure, unspecified; E87.5 Hyperkalemia; R13.12 Dysphagia, oropharyngeal phase; R16.0 Hepatomegaly, not elsewhere classified; E10.22 Type 1 diabetes mellitus with diabetic chronic kidney disease; F03.90 Unspecified dementia, unspecified severity, without behavioral disturbance, psychotic disturbance, mood disturbance, and anxiety; N18.3 Chronic kidney disease, stage 3 (moderate); K76.0 Fatty (change of) liver, not elsewhere classified; E10.42 Type 1 diabetes mellitus with diabetic polyneuropathy; E78.5 Hyperlipidemia, unspecified; T39.395A Adverse effect of other nonsteroidal anti-inflammatory drugs [NSAID], initial encounter; E86.0 Dehydration; F32.9 Major depressive disorder, single episode, unspecified; G25.81 Restless legs syndrome; H91.90 Unspecified hearing loss, unspecified ear; I12.9 Hypertensive chronic kidney disease with stage 1 through stage 4 chronic kidney disease, or unspecified chronic kidney disease; I25.10 Atherosclerotic heart disease of native coronary artery without angina pectoris; K21.9 Gastro-esophageal reflux disease without esophagitis; K59.00 Constipation, unspecified; N40.0 Benign prostatic hyperplasia without lower urinary tract symptoms; G89.29 Other chronic pain; M19.90 Unspecified osteoarthritis, unspecified site; M54.41 Lumbago with sciatica, right side; M54.42 Lumbago with sciatica, left side; M54.2 Cervicalgia; R77.9 Abnormality of plasma protein, unspecified; H93.13 Tinnitus, bilateral; M25.512 Pain in left shoulder; M25.511 Pain in right shoulder; Z79.4 Long term (current) use of insulin; Z79.82 Long term (current) use of aspirin; Z79.899 Other long term (current) drug therapy; Z96.41 Presence of insulin pump (external) (internal); Z87.891 Personal history of nicotine dependence; Z98.42 Cataract extraction status, left eye; Z98.41 Cataract extraction status, right eye; Z96.1 Presence of intraocular lens; Z82.49 Family history of ischemic heart disease and other diseases of the circulatory system; Z82.5 Family history of asthma and other chronic lower respiratory diseases
CPT/HCPCS: 36415; 71045; 76700; 80048; 80051; 80053; 81003; 82009; 82150; 82550; 82565; 82803; 82947; 83690; 83735; 84100; 84484; 84520; 85025; 85610; 85730; 93005; 93306; 96360; 99291

== ENCOUNTER → 2018-12-04 | Outpatient (CLI) | payer MEDICARE, OTHER ==
--- NOTE | 2018-12-04 12:49 | XR ---
EXAMINATION TYPE: XR knee complete LT DATE OF EXAM: 12/04/2018 CLINICAL HISTORY: Left knee pain after fall injury 2 days ago. TECHNIQUE: Three views of the left knee are obtained. COMPARISON: None. FINDINGS: There is no acute fracture/dislocation evident in left knee. Mild to moderate narrowing me dial tibiofemoral and patellofemoral compartments. Posterior vascular calcification. Overlying treva m aterial distal femoral level noted. IMPRESSION: There is no acute fracture or dislocation in the left knee.
== END | disposition home or self-care (01) ==
LOC: RADXRMAIN 12:14
PROVIDERS: ATTEND Internal Medicine
DX: M25.562 Pain in left knee (principal)

== ENCOUNTER → 2018-12-24 | Outpatient (CLI) | payer MEDICARE, OTHER ==
[2018-12-24 11:59] LABS: Basophils % (A) 1 %; Eosinophils # (A) 0.2 k/uL (0-0.7); Eosinophils % (A) 3 %; HCT 42.4 % (39.0-53.0); HGB 13.1 gm/dL (13.0-17.5); Lymphocytes # (A) 1.8 k/uL (1.0-4.8); Lymphocytes % (A) 33 %; MCH 31.1 pg (25.0-35.0); MCHC 30.9 g/dL (31.0-37.0); Macrocytosis Slight; Mean Platelet Volume 7.1; Monocytes # (A) 0.2 k/uL (0-1.0); Monocytes % (A) 4 %; Neutrophils # (A) 3.3 k/uL (1.3-7.7); Neutrophils % (A) 59 %; Platelet Count 258 k/uL (150-450); RBC 4.21 m/uL (4.30-5.90); RDW 13.8 % (11.5-15.5); WBC 5.6 k/uL (3.8-10.6)
[2018-12-24 12:07] LABS: MCV 100.7 fL (80.0-100.0)
[2018-12-24 19:23] LABS: Albumin 4.3 g/dL (3.80-4.90); Albumin/Globulin Ratio 2.05 (1.60-3.17); Anion Gap 14.1 mmol/L (4.00-12.00); BUN/Creat Ratio 12.67 Ratio (12.00-20.00); Calcium 9.9 mg/dL (8.7-10.3); Carbon Dioxide 23.9 mmol/L (21.6-31.8); Chol/HDL Ratio 2.18; Globulin 2.1 g/dL (1.6-3.3); LDL Cholesterol,Calculated 60.4 mg/dL (0.0-131.0); Potassium 5.8 mmol/L (3.5-5.5); Total Bilirubin 0.6 mg/dL (0.2-1.2); Total Protein 6.4 g/dL (6.2-8.2); VLDL Calculation 16.6 mg/dL (5.00-40.00)
== END | disposition home or self-care (01) ==
LOC: LABWHC1 11:02
PROVIDERS: ATTEND Psychiatry & Neurology Neurology
DX: E10.65 Type 1 diabetes mellitus with hyperglycemia (principal); E78.2 Mixed hyperlipidemia; I10 Essential (primary) hypertension; E55.9 Vitamin D deficiency, unspecified; R53.83 Other fatigue
CPT/HCPCS: 36415; 80053; 80061; 82306; 83036; 84443; 85025

== ENCOUNTER → 2018-12-28 | Outpatient (CLI) | payer MEDICARE, OTHER ==
--- NOTE | 2018-12-28 16:08 | MR ---
EXAMINATION TYPE: MR brain wo/w con DATE OF EXAM: 12/28/2018 COMPARISON: Right brain March 10, 2018. HISTORY: Memory loss, Passing out TECHNIQUE: Multiplanar, multisequence images of the brain and brainstem is performed without and with IV contras t, utilizing 12 mL intravenous Gadavist . FINDINGS: Diffusion weighted images demonstrate no evidence of a recent infarct or other diffusion ab normality. There is no worrisome extra-axial fluid collection. There is ventricular and sulcal promi nence redemonstrated. Some faint areas of T2 hyperintensity in the periventricular white matter are r edemonstrated Midline structures demonstrate normal morphology. The craniocervical junction appears within normal limits. Post contrast images demonstrate no abnormal enhancement. The dural venous sinuses appear pa tent. The visualized sinuses are clear and the globes are intact. Dominant right vertebral artery is present. IMPRESSION: Mild to moderate diffuse cerebral atrophy and mild chronic small vessel ischemic changes. No suspicious enhancement. No significant change from prior.
== END ==
LOC: RADMRIMAIN 15:01
PROVIDERS: ATTEND Psychiatry & Neurology Neurology
DX: G31.1 Senile degeneration of brain, not elsewhere classified (principal); I67.82 Cerebral ischemia
CPT/HCPCS: 70553; A9585

== ENCOUNTER → 2019-01-23 | Outpatient (CLI) | payer MEDICARE, OTHER ==
[2019-01-23 12:42] LABS: Appearance,Urine Clear (Clear); Basophils % (A) 0 %; Bilirubin,Urine Negative (Negative); Blood,Urine Negative (Negative); Color,Urine Yellow; Eosinophils # (A) 0.2 k/uL (0-0.7); Eosinophils % (A) 3 %; Glucose,Urine (UA) 4+ (Negative); HCT 41.1 % (39.0-53.0); HGB 12.9 gm/dL (13.0-17.5); Ketones,Urine Negative (Negative); Leukocyte Esterase,Urine Negative (Negative); Lymphocytes # (A) 1.8 k/uL (1.0-4.8); Lymphocytes % (A) 27 %; MCH 31.5 pg (25.0-35.0); MCHC 31.4 g/dL (31.0-37.0); MCV 100.4 fL (80.0-100.0); Mean Platelet Volume 7.2; Monocytes # (A) 0.3 k/uL (0-1.0); Monocytes % (A) 5 %; Neutrophils # (A) 4.2 k/uL (1.3-7.7); Neutrophils % (A) 63 %; Nitrite,Urine Negative (Negative); PH, Urine 5.5 (5.0-8.0); Platelet Count 229 k/uL (150-450); Protein,Urine Negative (Negative); RDW 13.3 % (11.5-15.5); Specific Gravity,Urine 1.021 (1.001-1.035); Urobilinogen,Urine <2.0 mg/dL (<2.0); WBC 6.7 k/uL (3.8-10.6)
[2019-01-23 17:59] LABS: African American GFR (CKD) 72.1 (60.0-200.0); Albumin 4.2 g/dL (3.80-4.90); BUN/Creat Ratio 17.5 Ratio (12.00-20.00); Calcium 9.1 mg/dL (8.7-10.3); Phosphorus 2.6 mg/dL (2.4-5.1); Potassium 5.2 mmol/L (3.5-5.5)
[2019-01-23 18:08] LABS: Ferritin 27.7 ng/mL (22.0-322.0)
== END | disposition home or self-care (01) ==
LOC: LABWHC1 11:55
PROVIDERS: ATTEND Nurse Practitioner Family
DX: N18.3 Chronic kidney disease, stage 3 (moderate) (principal); D63.1 Anemia in chronic kidney disease; E55.9 Vitamin D deficiency, unspecified; N25.81 Secondary hyperparathyroidism of renal origin; N39.0 Urinary tract infection, site not specified; M10.9 Gout, unspecified
CPT/HCPCS: 36415; 80048; 81003; 82040; 82306; 82728; 83540; 83550; 83735; 83970; 84100; 84550; 85025

== ENCOUNTER → 2019-11-12 | Outpatient (CLI) | payer MEDICARE, OTHER ==
--- NOTE | 2019-11-12 14:30 | XR ---
EXAMINATION TYPE: XR wrist complete RT DATE OF EXAM: 11/12/2019 CLINICAL HISTORY: pain TECHNIQUE: Frontal, lateral and oblique images of the right wrist are obtained. COMPARISON: None. FINDINGS: There is no acute fracture/dislocation evident. The joint spaces appear within normal limits. The o verlying soft tissue appears unremarkable. IMPRESSION: There is no acute fracture or dislocation seen. ICD 10 NO FRACTURE, INITIAL EVALUATION
== END | disposition home or self-care (01) ==
LOC: RADXRMAIN 14:13
PROVIDERS: ATTEND Internal Medicine
DX: S69.91XA Unspecified injury of right wrist, hand and finger(s), initial encounter (principal); M25.531 Pain in right wrist

== ENCOUNTER → 2020-02-02 | Outpatient (CLI) | payer MEDICARE, OTHER | END | disposition home or self-care (01) | LOC: LABWHC1 12:14 | PROVIDERS: ATTEND Internal Medicine Endocrinology, Diabetes & Metabolism | DX: E10.65 Type 1 diabetes mellitus with hyperglycemia (principal) | CPT/HCPCS: 36415; 82024; 82533 ==

== ENCOUNTER → 2020-10-05 | Outpatient (CLI) | payer MEDICARE, OTHER ==
[2020-10-05 19:18] LABS: Hemoglobin A1C 8.4 % (4.0-6.0)
[2020-10-06 03:29] LABS: African American GFR (CKD) 71.1 (60.0-200.0); Albumin/Globulin Ratio 1.67 (1.60-3.17); Anion Gap 8.9 mmol/L (4.00-12.00); BUN/Creat Ratio 19.17 Ratio (12.00-20.00); Calcium 8.7 mg/dL (8.7-10.3); Carbon Dioxide 25.1 mmol/L (21.6-31.8); Chol/HDL Ratio 2.75; Globulin 2.4 g/dL (1.6-3.3); LDL Cholesterol,Calculated 91.2 mg/dL (0.0-131.0); Non-African American GFR(CKD) 61.3 (60.0-200.0); Potassium 4.7 mmol/L (3.5-5.5); Total Bilirubin 0.7 mg/dL (0.2-1.2); Total Protein 6.4 g/dL (6.2-8.2); VLDL Calculation 20.8 mg/dL (5.00-40.00)
[2020-10-06 04:54] LABS: Urine Creatinine 122.1 mg/dL
== END | disposition home or self-care (01) ==
LOC: LABWHC1 12:52
PROVIDERS: ATTEND Internal Medicine Endocrinology, Diabetes & Metabolism
DX: E10.65 Type 1 diabetes mellitus with hyperglycemia (principal)
CPT/HCPCS: 36415; 80053; 80061; 82043; 82570; 83036; 84443

== ENCOUNTER → 2021-02-01 | Outpatient (CLI) | payer MEDICARE, OTHER ==
[2021-02-01 15:01] LABS: Creatinine,Urine Random 163.2 mg/dL
[2021-02-01 18:55] LABS: Basophils # (A) 0.02 X 10*3/uL (0.00-0.10); Basophils % (A) 0.4 %; Eosinophils # (A) 0.19 X 10*3/uL (0.04-0.35); Eosinophils % (A) 3.6 %; HCT 39.6 % (39.6-50.0); HGB 12.9 g/dL (13.0-17.0); Lymphocytes # (A) 1.93 X 10*3/uL (0.90-5.00); Lymphocytes % (A) 36.1 %; MCH 33.6 pg (27.0-32.0); MCHC 32.6 g/dL (32.0-37.0); MCV 103.1 fL (80.0-97.0); Mean Platelet Volume 11.6 fL (9.5-12.2); Monocytes # (A) 0.36 X 10*3/uL (0.20-1.00); Monocytes % (A) 6.7 %; Neutrophils # (A) 2.84 X 10*3/uL (1.80-7.70); Platelet Count 188 X 10*3/uL (140-440); RBC 3.84 X 10*6/uL (4.40-5.60); RDW 13.2 % (11.5-14.5); WBC 5.35 X 10*3/uL (4.50-10.00)
[2021-02-01 19:27] LABS: Ferritin 52.4 ng/mL (22.0-322.0); Uric Acid 5.3 mg/dL (3.7-8.7)
[2021-02-01 19:28] LABS: % Iron Saturation 24.25 (15.00-50.00); ALT 29 U/L (10-49); AST 31 U/L (14-35); African American GFR (CKD) 62.8 (60.0-200.0); Albumin 4.2 g/dL (3.8-4.9); Albumin/Globulin Ratio 1.77 (1.60-3.17); Alkaline Phosphatase 54 U/L (41-126); BUN/Creat Ratio 15.19 Ratio (12.00-20.00); Blood Urea Nitrogen 20.2 mg/dL (9.0-27.0); Calcium 9.5 mg/dL (8.7-10.3); Carbon Dioxide 23.6 mmol/L (21.6-31.8); Chloride 105 mmol/L (96-109); Chol/HDL Ratio 1.95 Ratio; Globulin 2.4 g/dL (1.6-3.3); Glucose 159 mg/dL (70-110); Iron 86 ug/dL (65-175); LDL Cholesterol,Calculated 60.2 mg/dL (0.0-131.0); Magnesium 1.9 mg/dL (1.5-2.4); Non-African American GFR(CKD) 54.2 (60.0-200.0); Phosphorus 3.3 mg/dL (2.4-5.1); Potassium 5.6 mmol/L (3.5-5.5); Sodium 145 mmol/L (135-145); Total Iron Binding Capacity 354 ug/dL (228-460); Total Protein 6.6 g/dL (6.2-8.2); VLDL Calculation 13.82 mg/dL (5.00-40.00)
== END | disposition home or self-care (01) ==
LOC: LABWHC1 13:17
PROVIDERS: ATTEND Nurse Practitioner Family
DX: I12.9 Hypertensive chronic kidney disease with stage 1 through stage 4 chronic kidney disease, or unspecified chronic kidney disease (principal); E10.65 Type 1 diabetes mellitus with hyperglycemia; E10.22 Type 1 diabetes mellitus with diabetic chronic kidney disease; E78.2 Mixed hyperlipidemia; E55.9 Vitamin D deficiency, unspecified; D64.9 Anemia, unspecified; N18.30 Chronic kidney disease, stage 3 unspecified; N39.0 Urinary tract infection, site not specified; M10.9 Gout, unspecified; N25.81 Secondary hyperparathyroidism of renal origin; R80.9 Proteinuria, unspecified
CPT/HCPCS: 36415; 80053; 80061; 82306; 82570; 82728; 83036; 83540; 83550; 83735; 83970; 84100; 84156; 84443; 84550; 85025

== ENCOUNTER 2021-02-26 21:23 | Emergency (ER) | payer MEDICARE, OTHER ==
[2021-02-26 21:33] VITALS: TEMP 98.1
[2021-02-26] MEDS ORDERED: HYDROmorphone 1 MG/ML 1 ML SYRINGE IM STA (21:35)
--- NOTE | 2021-02-26 21:44 | ED ---
Fall HPI - General Chief Complaint: Fall Stated Complaint: Fall Time Seen by Provider: 02/26/21 21:25 Source: patient, EMS, old records reviewed Mode of arrival: EMS Limitations: physical limitation - History of Present Illness Initial Comments: this a 70-year-old male presents emergency Department chief left shoulder pain, neck pain. Patient states that he tripped over a dog and a container. Patient states he fell onto his shoulder. He states he heard some crunching, severe pain left shoulder no pain meds given prior arrival. Denies any loss conscious no blood thinners no back or chest - Related Data Home Medications Medication Instructions Recorded Confirmed Amitriptyline HCl [Elavil] 75 mg PO HS 10/16/13 11/09/18 Aspirin 81 mg PO DAILY 10/16/13 11/09/18 Cholecalciferol [Vitamin D3 (25 2,000 unit PO DAILY 10/16/13 11/09/18 Mcg = 1000 Iu)] Citalopram Hydrobromide 20 mg PO DAILY 01/20/18 11/09/18 Pantoprazole [Protonix] 40 mg PO BID 01/20/18 11/09/18 metFORMIN HCL [Glucophage] 500 mg PO BID 03/20/18 11/09/18 Atorvastatin [Lipitor] 40 mg PO DAILY 04/29/18 11/09/18 Sodium Polystyrene Sulfon/Sorb 11.25 gm PO DIRECTED 04/29/18 11/09/18 [SPS] Metoprolol Succinate [Toprol XL] 25 mg PO DAILY 11/09/18 11/09/18 Tamsulosin [Flomax] 0.4 mg PO DAILY 11/09/18 11/09/18 traMADol HCL [Ultram] 50 mg PO TID 11/09/18 11/09/18 Previous Rx's Medication Instructions Recorded rOPINIRole HCL [Requip] 0.5 mg PO HS 30 Days #30 tablet 05/09/18 Clopidogrel [Plavix] 75 mg PO DAILY 30 Days #30 tab 11/13/18 Famotidine [Pepcid] 40 mg PO HS 30 Days #30 tab 11/13/18 INSULIN ASPART (NovoLOG) [NovoLOG 0 unit SQ ACHS #1 vial 11/13/18 (formulary)] INSULIN ASPART (NovoLOG) [NovoLOG 5 unit SQ AC-TID #1 vial 11/13/18 (formulary)] Insulin Detemir (Levemir) [Levemir] 30 unit SQ HS #1 vial 11/13/18 amLODIPine [Norvasc] 5 mg PO DAILY 30 Days #30 tab 11/13/18 lisinopriL [Zestril] 5 mg PO 1200 30 Days #30 tab 11/13/18 Allergies Allergy/AdvReac Type Severity Reaction Status Date / Time No Known Allergies Allergy Verified 11/09/18 09:05 Review of Systems ROS Statement: Those systems with pertinent positive or pertinent negative responses have been documented in the HPI. ROS Other: All systems not noted in ROS Statement are negative. Past Medical History Past Medical History: Blood Disorder, Coronary Artery Disease (CAD), Dementia, Diabetes Mellitus, Eye Disorder, GERD/Reflux, Hearing Disorder / Deafness, Hyperlipidemia, Hypertension, Neurologic Disorder, Osteoarthritis (OA), Prostate Disorder, Renal Disease, Syncope Additional Past Medical History / Comment(s): IDDM type I with insulin pump, bilateral legs/feet/arms and hand neuropathy, chronic renal disease, difficulty swallowing, RLS, factor V, early dementia, BPH, bilateral tinnitis, R eye retinal bleeds x2, chronic low back pain with bilateral sciatica which is worse on the right side, bilateral shoulder and cervical pain, History of Any Multi-Drug Resistant Organisms: None Reported Past Surgical History: Adenoidectomy, Back Surgery, Heart Catheterization, Orthopedic Surgery, Tonsillectomy Additional Past Surgical History / Comment(s): Lumbar laminectomy, R knee cartildge surgery, bilateral carpal tunnel released, L wrist dequevain surgery, R rotator cuff repair, L foot pins and plates, EGD, colonoscopy, R eye laser eye surgery for retinal bleeds, bilateral cataract removals/lens implants. Past Anesthesia/Blood Transfusion Reactions: Motion Sickness Past Psychological History: Depression Past Alcohol Use History: None Reported Past Drug Use History: None Reported - Past Family History Brother(s) Family Medical History: Deep Vein Thrombosis (DVT) Mother Additional Family Medical History / Comment(s): Mother had palsey Father Family Medical History: COPD, Myocardial Infarction ([place]) Additional Family Medical History / Comment(s): Father of COPD/[place] at the age of 72 yrs. General Exam General appearance: alert, in no apparent distress Head exam: Present: atraumatic, normocephalic, normal inspection Neck exam: Present: normal inspection, tenderness. Absent: meningismus, full ROM (patient in c-collar), lymphadenopathy Respiratory exam: Present: normal lung sounds bilaterally. Absent: respiratory distress, wheezes, rales, rhonchi, stridor Cardiovascular Exam: Present: regular rate, normal rhythm, normal heart sounds. Absent: systolic murmur, diastolic murmur, rubs, gallop, clicks Extremities exam: Present: other (tenderness to left shoulder, limited range of motion neurovascular intact) Neurological exam: Present: alert, oriented X3, CN II-XII intact, reflexes normal. Absent: motor sensory deficit Skin exam: Present: warm, dry, intact, normal color. Absent: rash Course Vital Signs 02/26/21 02/26/21 21:26 21:33 Temperature 98.1 F Pulse Rate 69 Respiratory 16 Rate Blood Pressure 191/70 180/84 O2 Sat by Pulse 98 Oximetry Medical Decision Making - Medical Decision Making 70-year-old male presented for a fall this is mechanical trip and fall CT of the brain and C-spine are unremarkable x-ray of the shoulder reveals acute impacted humeral neck fracture. Patient was placed in a sling follow-up with orthopedics return parameters were discussed. - Lab Data Lab Results 02/26/21 Range/Units 22:36 POC Glucose (mg/dL) 60 L (75-99) mg/dL POC Glu Optometric Technologist ID Caitlin Schuster Disposition Clinical Impression: Fall, Fracture of neck of left humerus Disposition: HOME SELF-CARE Condition: Stable Instructions (If sedation given, give patient instructions): Proximal Humerus Fracture (ED) Additional Instructions: Please return to the Emergency Department if symptoms worsen or any other concerns. Is patient prescribed a controlled substance at d/c from ED?: No Referrals: Ej Gibson MD [Primary Care Provider] - 1-2 days Jamari Bray MD [Medical Doctor] - 1-2 days Time of Disposition: 23:03
--- NOTE | 2021-02-26 22:29 | CT ---
EXAMINATION TYPE: CT brain cspine wo con DATE OF EXAM: 02/26/2021 COMPARISON: None HISTORY: Pain from fall CT DLP: 1942.1 mGycm Automated exposure control for dose reduction was used. CT brain and cervical spine without contrast. There is cerebral cortical atrophy. There is no mass effect nor midline shift. There is no sign of in tracranial hemorrhage. The calvarium is intact. Skull base is intact. There is normal aeration of the mastoid sinuses. Cervical vertebra have normal alignment. The posterior elements are intact. Disc spaces are fairly no rmal. Prevertebral soft tissues are intact. Facet joints are intact. IMPRESSION: Negative CT scan of the cervical spine. Mild cerebral atrophy. No acute intracranial abnormality.
[2021-02-26 22:39] LABS: Glucose,Whole Blood 60 mg/dL (75-99)
--- NOTE | 2021-02-26 22:48 | XR ---
EXAMINATION TYPE: XR shoulder complete LT DATE OF EXAM: 02/26/2021 COMPARISON: NONE HISTORY: Shoulder pain TECHNIQUE: 2 views FINDINGS: There is impacted and displaced comminuted humeral neck fracture. There is no dislocation. There is approximate 2 cm of impaction. The scapula is intact. IMPRESSION: Acute impacted comminuted humeral neck fracture.
[2021-02-26] MEDS ORDERED: ACET/COD 300 MG/30 MG STARTER PACK 6 TAB BTL PO STA (23:00)
[2021-02-26 23:20] VITALS: BP 143/58; PULSE 70; RESP 18
== END 2021-02-26 23:20 | disposition home or self-care (01) ==
LOC: EC 21:23
DX: S12.9XXA Fracture of neck, unspecified, initial encounter (principal); S42.302A Unspecified fracture of shaft of humerus, left arm, initial encounter for closed fracture; I25.10 Atherosclerotic heart disease of native coronary artery without angina pectoris; K21.9 Gastro-esophageal reflux disease without esophagitis; E78.5 Hyperlipidemia, unspecified; I10 Essential (primary) hypertension; M19.90 Unspecified osteoarthritis, unspecified site; E10.40 Type 1 diabetes mellitus with diabetic neuropathy, unspecified; Z79.82 Long term (current) use of aspirin; Z79.4 Long term (current) use of insulin; Z79.899 Other long term (current) drug therapy; Z79.84 Long term (current) use of oral hypoglycemic drugs; W01.0XXA Fall on same level from slipping, tripping and stumbling without subsequent striking against object, initial encounter
CPT/HCPCS: 99284; 96372; 36415; 73030; 72125; 70450; L3670; J1170

== ENCOUNTER → 2022-06-21 | Outpatient (CLI) | payer MEDICARE, OTHER ==
--- NOTE | 2022-06-22 07:44 | CT ---
EXAMINATION TYPE: CT shoulder LT wo con DATE OF EXAM: 06/21/2022 COMPARISON: Left shoulder x-ray February 26, 2021 HISTORY: Left shoulder pain and osteoarthritis. Varus deformity. Moderate glenohumeral joint osteoart hritis. Preoperative planning. CT DLP: 658.20 mGycm Automated exposure control for dose reduction was used. FINDINGS: Acromioclavicular joint redemonstrates mild narrowing. No significant spurring. There is redemonstration of displaced healing and/or healed fracture through the surgical neck of the left proximal humerus. On sagittal images there is approximately 1.8 cm anterior displacement of the distal fracture fragment. There is approximate 1.5 cm osseous overlap or impaction. There is approxi mate 8 mm medial displacement on coronal images. Glenohumeral joint shows [id number]-oz-opetdgvy narrowing greatest anteriorly. Normal version. Rotator cuff muscle bulk is maintained. Visualized ribs are intact. IMPRESSION: As above.
== END | disposition home or self-care (01) ==
LOC: RADCTMAIN 16:29
PROVIDERS: ATTEND Orthopaedic Surgery Sports Medicine
DX: Z01.818 Encounter for other preprocedural examination (principal); M25.512 Pain in left shoulder

== ENCOUNTER 2022-10-09 15:30 | Emergency (ER) | payer MEDICARE, OTHER ==
[2022-10-09] MEDS ORDERED: MORPHINE SULFATE 4 MG/ML SYRINGE IV STA (16:01)
[2022-10-09] MEDS ORDERED: SODIUM CHLORIDE 0.9% 1,000 ML IV STA (16:01)
--- NOTE | 2022-10-09 16:17 | ED ---
Syncope HPI - General Chief Complaint: Syncope Stated Complaint: Fall Time Seen by Provider: 10/09/22 15:36 Source: patient, EMS, RN notes reviewed, old records reviewed Mode of arrival: EMS Limitations: no limitations - History of Present Illness Initial Comments: This is a 72-year-old male to the emergency department for evaluation patient Dese for evaluation regards to weakness lightheadedness dizziness not feeling well. Patient was leaving his house going downstairs and believes had a syncopal event falling, patient did land on his right elbow with right elbow pain unsure if he passed out but thinks he passed out. Patient has no other injury noted and is just been significantly weak and unable tach to his normal level lately. MD Complaint: loss of consciousness, felt faint, collapsed -: hour(s) Prodromal Symptoms: lightheaded, palpitations -: second(s) Witnessed: no Injuries Sustained Associated with Event: None Current Symptoms: lightheaded, weakness History: previous syncopal episode Context: during exertion Treatments Prior to Arrival: none - Related Data Home Medications Medication Instructions Recorded Confirmed Aspirin 81 mg PO DAILY 10/16/13 10/09/22 Pantoprazole [Protonix] 40 mg PO BID 01/20/18 10/09/22 Tamsulosin [Flomax] 0.4 mg PO HS 11/09/18 10/09/22 Cetirizine HCl [Zyrtec] 10 mg PO DAILY 08/21/22 10/09/22 Citalopram Hydrobromide 40 mg PO DAILY 08/21/22 10/09/22 [Citalopram HBr] Fludrocortisone Acetate 0.1 mg PO DAILY 08/21/22 10/09/22 HYDROcodone/APAP 10-325MG [[place] 1 tab PO Q8H PRN 08/21/22 10/09/22 10-325] Docusate [Colace] 300 mg PO DAILY 10/09/22 10/09/22 Insulin Aspart (For Pump) [NovoLOG 0.01 unit SQ-PUMP CONTINUOUS 10/09/22 10/09/22 (For Pump)] Magnesium Oxide [Mag-Ox] 400 mg PO DAILY 10/09/22 10/09/22 Memantine [Namenda] 5 mg PO BID 10/09/22 10/09/22 Previous Rx's Medication Instructions Recorded rOPINIRole HCL [Requip] 0.5 mg PO HS 30 Days #30 tablet 05/09/18 Clopidogrel [Plavix] 75 mg PO DAILY 30 Days #30 tab 11/13/18 Allergies Allergy/AdvReac Type Severity Reaction Status Date / Time No Known Allergies Allergy Verified 10/09/22 17:23 Review of Systems ROS Statement: Those systems with pertinent positive or pertinent negative responses have been documented in the HPI. ROS Other: All systems not noted in ROS Statement are negative. Past Medical History Past Medical History: Blood Disorder, Coronary Artery Disease (CAD), Dementia, Diabetes Mellitus, Eye Disorder, GERD/Reflux, Hearing Disorder / Deafness, Hyperlipidemia, Hypertension, Neurologic Disorder, Osteoarthritis (OA), Prostate Disorder, Renal Disease, Syncope Additional Past Medical History / Comment(s): IDDM type I with insulin pump, bilateral legs/feet/arms and hand neuropathy, chronic renal disease, difficulty swallowing, RLS, factor V, early dementia, BPH, bilateral tinnitis, R eye retinal bleeds x2, chronic low back pain with bilateral sciatica which is worse on the right side, bilateral shoulder and cervical pain, History of Any Multi-Drug Resistant Organisms: None Reported Past Surgical History: Adenoidectomy, Back Surgery, Heart Catheterization, Orthopedic Surgery, Tonsillectomy Additional Past Surgical History / Comment(s): Lumbar laminectomy, R knee cartildge surgery, bilateral carpal tunnel released, sen wrist dequevain surgery, R rotator cuff repair, L foot pins and plates, EGD, colonoscopy, R eye laser eye surgery for retinal bleeds, bilateral cataract removals/lens implants. Past Anesthesia/Blood Transfusion Reactions: Motion Sickness Past Psychological History: Depression Smoking Status: Former smoker - Past Family History Brother(s) Family Medical History: Blood Disorder, Deep Vein Thrombosis (DVT) Mother Additional Family Medical History / Comment(s): Mother had palsey Father Family Medical History: COPD, Myocardial Infarction ([place]) Additional Family Medical History / Comment(s): Father of COPD/[place] at the age of 72 yrs. General Exam General appearance: alert, in no apparent distress, anxious Head exam: Present: atraumatic, normocephalic, normal inspection Eye exam: Present: normal appearance, PERRL, EOMI. Absent: scleral icterus, conjunctival injection, periorbital swelling ENT exam: Present: normal exam, mucous membranes moist Neck exam: Present: normal inspection. Absent: tenderness, meningismus, lymphadenopathy Respiratory exam: Present: normal lung sounds bilaterally. Absent: respiratory distress, wheezes, rales, rhonchi, stridor Cardiovascular Exam: Present: regular rate, normal rhythm, normal heart sounds. Absent: systolic murmur, diastolic murmur, rubs, gallop, clicks GI/Abdominal exam: Present: soft, normal bowel sounds. Absent: distended, tenderness, guarding, rebound, rigid Extremities exam: Present: normal inspection, full ROM, normal capillary refill. Absent: tenderness, pedal edema, joint swelling, calf tenderness Back exam: Present: normal inspection Neurological exam: Present: alert, oriented X3, CN II-XII intact Psychiatric exam: Present: normal affect, normal mood Skin exam: Present: warm, dry, intact, normal color. Absent: rash Course Vital Signs 10/09/22 10/09/22 15:34 19:16 Pulse Rate 77 60 Respiratory 19 18 Rate Blood Pressure 108/68 149/61 O2 Sat by Pulse 97 98 Oximetry - Reevaluation(s) Reevaluation #1: 10/09/22 16:39 Medical record is reviewed Reevaluation #2: 10/09/22 16:39 Patient symptoms unchanged No recurrent syncope here in the emergency department Reevaluation #3: 10/09/22 Patient informed results and questions answered Reevaluation #4: 10/09/22 16:39 Was pt. sent in by a medical professional or institution? @ -no Did you speak to anyone other than the patient for history? @ -no Did you review nursing and triage notes? @ -agree Were old charts reviewed? @ -yes Differential Diagnosis? @ -prior EKG interpreted by me (3pts min.)? @ -yes X-rays interpreted by me (1pt min.)? @ -yes CT interpreted by me (1pt min.)? @ -no U/S interpreted by me (1pt. min.)? @ -no What testing was considered but not performed? (CT, X-rays, U/S, labs)? Why? @ -no What meds were considered but not given? Why? @ -no Did you discuss the management of the patient with other professionals? @ -no Did you reconcile home meds? @ -no Was smoking cessation discussed for >3mins.? @ -no Was critical care preformed (if so, how long)? @ -no Were there social determinants of health that impacted care today? How? (Homelessness, low income, unemployed, alcoholism, drug addiction, transportation, low edu. Level, literacy, decrease access to med. care, [facility], rehab)? @ -no Was there de-escalation of care discussed even if they declined? (Discuss DNR or withdrawal of care, Hospice)? @ -no What co-morbidities impacted this encounter? (DM, HTN, Smoking, COPD, CAD, Cancer, CVA, Hep., AIDS, mental health diagnosis, sleep apnea, morbid obesity)? @ -none Was patient admitted / discharged? @ -72 male to the emergency department for evaluation of syncopal event which resulted in fall patient didn't his head and does complain of generalized pain. No dramatic injuries noted from fall dizziness is improved with hydration patient feels improved no recurrent syncope any can be discharged home Discharge Undiagnosed new problem with uncertain prognosis? @ -no Drug Therapy requiring intensive monitoring for toxicity (Heparin, Nitro, Insulin, Cardizem)? @ -no Were any procedures done? @ -no Diagnosis/symptom? @ -Syncope, fall, head contusion Acute, or Chronic, or Acute on Chronic? @ -acute Uncomplicated (without systemic symptoms) or Complicated (systemic symptoms)? @ -complicated Side effects of treatment? @ -no Exacerbation, Progression, or Severe Exacerbation] @ -no Poses a threat to life or bodily function? @ -yes as cause of syncope Reevaluation #5: 10/09/22 16:39 Differential Weakness: Hypoglycemia, shock, sepsis, hyponatremia, anemia, infection, CT, ETOH, adverse medicine reaction, overdose, stroke, this is not meant to be an all-inclusive list. EKG Findings - EKG Comments: EKG Findings:: EKG is sinus 68 AR 160 QRS 99 QTC 445 Medical Decision Making - Medical Decision Making 72 male to the emergency department for evaluation of syncopal event which res ulted in fall patient didn't his head and does complain of generalized pain. No dramatic injuries noted from fall dizziness is improved with hydration patient feels improved no recurrent syncope any can be discharged home - Lab Data Result diagrams: 10/09/22 16:09 10/09/22 16:09 Lab Results 10/09/22 10/09/22 10/09/22 Range/Units 16:09 16:09 16:09 WBC 5.7 (3.8-10.6) k/uL RBC 4.05 L (4.30-5.90) m/uL Hgb 13.2 (13.0-17.5) gm/dL Hct 39.2 (39.0-53.0) % MCV 96.8 (80.0-100.0) fL MCH 32.5 (25.0-35.0) pg MCHC 33.6 (31.0-37.0) g/dL RDW 13.4 (11.5-15.5) % Plt Count 172 (150-450) k/uL MPV 8.7 Neutrophils % 52 % Lymphocytes % 40 % Monocytes % 4 % Eosinophils % 2 % Basophils % 0 % Neutrophils # 3.0 (1.3-7.7) k/uL Lymphocytes # 2.3 (1.0-4.8) k/uL Monocytes # 0.2 (0-1.0) k/uL Eosinophils # 0.1 (0-0.7) k/uL Basophils # 0.0 (0-0.2) k/uL PT 10.6 (9.0-12.0) sec INR 1.0 (<1.2) APTT 19.5 L (22.0-30.0) sec Sodium (137-145) mmol/L Potassium (3.5-5.1) mmol/L Chloride (98-107) mmol/L Carbon Dioxide (22-30) mmol/L Anion Gap mmol/L BUN (9-20) mg/dL Creatinine (0.66-1.25) mg/dL Est GFR (CKD-EPI)AfAm (>60 ml/min/1.73 sqM) Est GFR (CKD-EPI)NonAf (>60 ml/min/1.73 sqM) Glucose (74-99) mg/dL POC Glucose (mg/dL) (70-110) mg/dL POC Glu Technical Healthcare Consultant ID Lactic Ac Sepsis Rflx Plasma Lactic Acid Finesse (0.7-2.0) mmol/L Calcium (8.4-10.2) mg/dL Phosphorus (2.5-4.5) mg/dL Magnesium (1.6-2.3) mg/dL Total Bilirubin (0.2-1.3) mg/dL AST (17-59) U/L ALT (4-49) U/L Alkaline Phosphatase (38-126) U/L Troponin I (0.000-0.034) ng/mL NT-Pro-B Natriuret Pep pg/mL Total Protein (6.3-8.2) g/dL Albumin (3.5-5.0) g/dL Urine Color Yellow Urine Appearance Clear (Clear) Urine pH 5.0 (5.0-8.0) Ur Specific [place] 1.015 (1.001-1.035) Urine Protein Negative (Negative) Urine Glucose (UA) Trace H (Negative) Urine Ketones Trace H (Negative) Urine Blood Negative (Negative) Urine Nitrite Negative (Negative) Urine Bilirubin Negative (Negative) Urine Urobilinogen <2.0 (<2.0) mg/dL Ur Leukocyte Esterase Negative (Negative) 10/09/22 10/09/22 10/09/22 Range/Units 16:09 16:09 16:09 WBC (3.8-10.6) k/uL RBC (4.30-5.90) m/uL Hgb (13.0-17.5) gm/dL Hct (39.0-53.0) % MCV (80.0-100.0) fL MCH (25.0-35.0) pg MCHC (31.0-37.0) g/dL RDW (11.5-15.5) % Plt Count (150-450) k/uL MPV Neutrophils % % Lymphocytes % % Monocytes % % Eosinophils % % Basophils % % Neutrophils # (1.3-7.7) k/uL Lymphocytes # (1.0-4.8) k/uL Monocytes # (0-1.0) k/uL Eosinophils # (0-0.7) k/uL Basophils # (0-0.2) k/uL PT (9.0-12.0) sec INR (<1.2) APTT (22.0-30.0) sec Sodium 139 (137-145) mmol/L Potassium 4.2 (3.5-5.1) mmol/L Chloride 106 (98-107) mmol/L Carbon Dioxide 23 (22-30) mmol/L Anion Gap 10 mmol/L BUN 23 H (9-20) mg/dL Creatinine 1.20 (0.66-1.25) mg/dL Est GFR (CKD-EPI)AfAm 70 (>60 ml/min/1.73 sqM) Est GFR (CKD-EPI)NonAf 61 (>60 ml/min/1.73 sqM) Glucose 177 H (74-99) mg/dL POC Glucose (mg/dL) (70-110) mg/dL POC Glu Technical Healthcare Consultant ID Lactic Ac Sepsis Rflx Plasma Lactic Acid Finesse 2.5 H* (0.7-2.0) mmol/L Calcium 8.4 (8.4-10.2) mg/dL Phosphorus 2.6 (2.5-4.5) mg/dL Magnesium 2.1 (1.6-2.3) mg/dL Total Bilirubin 0.8 (0.2-1.3) mg/dL AST 40 (17-59) U/L ALT 36 (4-49) U/L Alkaline Phosphatase 49 (38-126) U/L Troponin I <0.012 (0.000-0.034) ng/mL NT-Pro-B Natriuret Pep pg/mL Total Protein 6.4 (6.3-8.2) g/dL Albumin 3.5 (3.5-5.0) g/dL Urine Color Urine Appearance (Clear) Urine pH (5.0-8.0) Ur Specific [place] (1.001-1.035) Urine Protein (Negative) Urine Glucose (UA) (Negative) Urine Ketones (Negative) Urine Blood (Negative) Urine Nitrite (Negative) Urine Bilirubin (Negative) Urine Urobilinogen (<2.0) mg/dL Ur Leukocyte Esterase (Negative) 10/09/22 10/09/22 10/09/22 Range/Units 16:09 16:47 18:28 WBC (3.8-10.6) k/uL RBC (4.30-5.90) m/uL Hgb (13.0-17.5) gm/dL Hct (39.0-53.0) % MCV (80.0-100.0) fL MCH (25.0-35.0) pg MCHC (31.0-37.0) g/dL RDW (11.5-15.5) % Plt Count (150-450) k/uL MPV Neutrophils % % Lymphocytes % % Monocytes % % Eosinophils % % Basophils % % Neutrophils # (1.3-7.7) k/uL Lymphocytes # (1.0-4.8) k/uL Monocytes # (0-1.0) k/uL Eosinophils # (0-0.7) k/uL Basophils # (0-0.2) k/uL PT (9.0-12.0) sec INR (<1.2) APTT (22.0-30.0) sec Sodium (137-145) mmol/L Potassium (3.5-5.1) mmol/L Chloride (98-107) mmol/L Carbon Dioxide (22-30) mmol/L Anion Gap mmol/L BUN (9-20) mg/dL Creatinine (0.66-1.25) mg/dL Est GFR (CKD-EPI)AfAm (>60 ml/min/1.73 sqM) Est GFR (CKD-EPI)NonAf (>60 ml/min/1.73 sqM) Glucose (74-99) mg/dL POC Glucose (mg/dL) 137 H (70-110) mg/dL POC Glu Technical Healthcare Consultant ID Bijuer, Candace Lactic Ac Sepsis Rflx Y Plasma Lactic Acid Finesse (0.7-2.0) mmol/L Calcium (8.4-10.2) mg/dL Phosphorus (2.5-4.5) mg/dL Magnesium (1.6-2.3) mg/dL Total Bilirubin (0.2-1.3) mg/dL AST (17-59) U/L ALT (4-49) U/L Alkaline Phosphatase (38-126) U/L Troponin I (0.000-0.034) ng/mL NT-Pro-B Natriuret Pep 373 pg/mL Total Protein (6.3-8.2) g/dL Albumin (3.5-5.0) g/dL Urine Color Urine Appearance (Clear) Urine pH (5.0-8.0) Ur Specific [place] (1.001-1.035) Urine Protein (Negative) Urine Glucose (UA) (Negative) Urine Ketones (Negative) Urine Blood (Negative) Urine Nitrite (Negative) Urine Bilirubin (Negative) Urine Urobilinogen (<2.0) mg/dL Ur Leukocyte Esterase (Negative) - Radiology Data Radiology results: report reviewed (X-ray chest pelvis elbow is negative for acute disease), image reviewed Disposition Clinical Impression: Vasovagal syncope, Dehydration, Head contusion, Nausea and vomiting, Weakness, Syncope, Fall, Dizziness Disposition: HOME SELF-CARE Condition: Good Instructions (If sedation given, give patient instructions): Syncope (ED), Head Injury (ED) Is patient prescribed a controlled substance at d/c from ED?: No Referrals: Ej Gibson MD [Primary Care Provider] - 1-2 days Time of Disposition: 18:30
[2022-10-09 16:29] LABS: Basophils % (A) 0 %; Eosinophils # (A) 0.1 k/uL (0-0.7); Eosinophils % (A) 2 %; HCT 39.2 % (39.0-53.0); HGB 13.2 gm/dL (13.0-17.5); Lymphocytes # (A) 2.3 k/uL (1.0-4.8); Lymphocytes % (A) 40 %; MCH 32.5 pg (25.0-35.0); MCHC 33.6 g/dL (31.0-37.0); MCV 96.8 fL (80.0-100.0); Mean Platelet Volume 8.7; Monocytes # (A) 0.2 k/uL (0-1.0); Monocytes % (A) 4 %; Neutrophils % (A) 52 %; Platelet Count 172 k/uL (150-450); RBC 4.05 m/uL (4.30-5.90); RDW 13.4 % (11.5-15.5); WBC 5.7 k/uL (3.8-10.6)
[2022-10-09 16:43] LABS: ALT 36 U/L (4-49); AST 40 U/L (17-59); African American GFR (CKD) 70 (>60 ml/min/1.73 sqM); Albumin 3.5 g/dL (3.5-5.0); Alkaline Phosphatase 49 U/L (38-126); Anion Gap 10 mmol/L; Blood Urea Nitrogen 23 mg/dL (9-20); Calcium 8.4 mg/dL (8.4-10.2); Carbon Dioxide 23 mmol/L (22-30); Chloride 106 mmol/L (98-107); Glucose 177 mg/dL (74-99); Magnesium 2.1 mg/dL (1.6-2.3); Non-African American GFR(CKD) 61 (>60 ml/min/1.73 sqM); Phosphorus 2.6 mg/dL (2.5-4.5); Potassium 4.2 mmol/L (3.5-5.1); Sodium 139 mmol/L (137-145); Total Bilirubin 0.8 mg/dL (0.2-1.3); Total Protein 6.4 g/dL (6.3-8.2)
[2022-10-09 16:49] LABS: Appearance,Urine Clear (Clear); Bilirubin,Urine Negative (Negative); Blood,Urine Negative (Negative); Color,Urine Yellow; Glucose,Urine (UA) Trace (Negative); Ketones,Urine Trace (Negative); Leukocyte Esterase,Urine Negative (Negative); Nitrite,Urine Negative (Negative); Protein,Urine Negative (Negative); Specific Gravity,Urine 1.015 (1.001-1.035); Urobilinogen,Urine <2.0 mg/dL (<2.0)
[2022-10-09 17:09] LABS: Partial Thromboplastin Time 19.5 sec (22.0-30.0); Prothrombin Time 10.6 sec (9.0-12.0)
--- NOTE | 2022-10-09 17:16 | XR ---
EXAMINATION TYPE: XR chest 1V DATE OF EXAM: 10/09/2022 COMPARISON: 11/09/2018 INDICATION: Fall, pain TECHNIQUE: Single frontal view of the chest is obtained. FINDINGS: The heart size is normal. Mediastinum appears normal. No pneumothorax is evident. The pulmonary vasculature is normal. The lungs are clear. Osseous structures are unremarkable. IMPRESSION: 1. No acute pulmonary process.
--- NOTE | 2022-10-09 17:18 | XR ---
EXAMINATION TYPE: XR elbow complete RT DATE OF EXAM: 10/09/2022 COMPARISON: None HISTORY: Fall, pain TECHNIQUE: 3 view right elbow FINDINGS: Radius aligns normally with the humerus. No acute fractures or dislocations are evident. An terior fat pad is normal. No elevation of the posterior fat pad is evident which is normal. Soft tiss ues are unremarkable. Follow up exams can be performed 7-10 days from acute trauma for continued pain. IMPRESSION: 1. No acute osseous abnormality right elbow
--- NOTE | 2022-10-09 17:18 | XR ---
EXAMINATION TYPE: XR pelvis AP view DATE OF EXAM: 10/09/2022 COMPARISON: None HISTORY: Fall, pain TECHNIQUE: AP pelvis FINDINGS: No acute fractures or dislocations are evident. Mild degenerative changes are at the hips. Symphysis pubis and sacroiliac joints are patent. Postsurgical changes are evident at L3-L4. Follow u p exams can be performed as clinically indicated. IMPRESSION: 1. No acute osseous abnormality AP pelvis
[2022-10-09 18:30] LABS: Glucose,Whole Blood 137 mg/dL (70-110)
[2022-10-09 19:17] VITALS: BP 149/61; PULSE 60; RESP 18
== END 2022-10-09 19:19 | disposition home or self-care (01) ==
LOC: EC 15:30
DX: S00.93XA Contusion of unspecified part of head, initial encounter (principal); E86.0 Dehydration; R11.2 Nausea with vomiting, unspecified; R53.1 Weakness; R42 Dizziness and giddiness; R55 Syncope and collapse; I25.10 Atherosclerotic heart disease of native coronary artery without angina pectoris; M19.90 Unspecified osteoarthritis, unspecified site; E11.22 Type 2 diabetes mellitus with diabetic chronic kidney disease; I12.9 Hypertensive chronic kidney disease with stage 1 through stage 4 chronic kidney disease, or unspecified chronic kidney disease; N18.9 Chronic kidney disease, unspecified; F32.A Depression, unspecified; Z87.891 Personal history of nicotine dependence; Z79.02 Long term (current) use of antithrombotics/antiplatelets; Z79.4 Long term (current) use of insulin; Z79.82 Long term (current) use of aspirin; Z79.899 Other long term (current) drug therapy
CPT/HCPCS: 36415; 93005; 83880; 80053; 83605; 83735; 84100; 84484; 85025; 85610; 85730; 81003; 72170; 73080; 71045; 99285; 96374; 96361 ×2; J2270

== ENCOUNTER 2022-11-14 16:07 | Observation (INO) | payer MEDICARE, OTHER ==
--- NOTE | 2022-11-14 16:25 | ED ---
General Adult HPI - General Chief complaint: Syncope Stated complaint: Syncope Time Seen by Provider: 11/14/22 16:10 Source: patient Mode of arrival: ambulatory Limitations: no limitations - History of Present Illness Initial comments: 72-year-old male who presents to the emergency department reporting near syncope. States he had 3 episodes today where he almost passed out and had to catch himself. He denies fully losing consciousness. Denies any injuries. No chest pain or shortness of breath. No nausea or vomiting. Denies headaches or visual changes. No fevers or recent illnesses. He denies any abdominal pain. No lateralizing symptoms. Reports that he has had issues with this previously in the past and was due to orthostatic hypotension. No other alleviating, precipitating or modifying factors - Related Data Home Medications Medication Instructions Recorded Confirmed Aspirin 81 mg PO DAILY 10/16/13 11/14/22 Pantoprazole [Protonix] 40 mg PO BID 01/20/18 11/14/22 Tamsulosin [Flomax] 0.4 mg PO HS 11/09/18 11/14/22 Cetirizine HCl [Zyrtec] 10 mg PO DAILY 08/21/22 11/14/22 Citalopram Hydrobromide 40 mg PO DAILY 08/21/22 11/14/22 [Citalopram HBr] Fludrocortisone Acetate 0.1 mg PO DAILY 08/21/22 11/14/22 Docusate [Colace] 300 mg PO DAILY 10/09/22 11/14/22 Insulin Aspart (For Pump) [NovoLOG 0.01 unit SQ-PUMP CONTINUOUS 10/09/22 11/14/22 (For Pump)] Magnesium Oxide [Mag-Ox] 400 mg PO DAILY 10/09/22 11/14/22 Memantine [Namenda] 5 mg PO BID 10/09/22 11/14/22 Acetaminophen [Tylenol Extra 1,000 mg PO BID 11/14/22 11/14/22 Strength] Atorvastatin [Lipitor] 40 mg PO DAILY 11/14/22 11/14/22 Previous Rx's Medication Instructions Recorded rOPINIRole HCL [Requip] 0.5 mg PO HS 30 Days #30 tablet 05/09/18 Clopidogrel [Plavix] 75 mg PO DAILY 30 Days #30 tab 11/13/18 Allergies Allergy/AdvReac Type Severity Reaction Status Date / Time No Known Allergies Allergy Verified 11/14/22 19:28 Review of Systems ROS Statement: Those systems with pertinent positive or pertinent negative responses have been documented in the HPI. ROS Other: All systems not noted in ROS Statement are negative. Past Medical History Past Medical History: Blood Disorder, Coronary Artery Disease (CAD), Dementia, Diabetes Mellitus, Eye Disorder, GERD/Reflux, Hearing Disorder / Deafness, Hyperlipidemia, Hypertension, Neurologic Disorder, Osteoarthritis (OA), Prostate Disorder, Renal Disease, Syncope Additional Past Medical History / Comment(s): IDDM type I with insulin pump, bilateral legs/feet/arms and hand neuropathy, chronic renal disease, difficulty swallowing, RLS, factor V, early dementia, BPH, bilateral tinnitis, R eye retinal bleeds x2, chronic low back pain with bilateral sciatica which is worse on the right side, bilateral shoulder and cervical pain, History of Any Multi-Drug Resistant Organisms: None Reported Past Surgical History: Adenoidectomy, Back Surgery, Heart Catheterization, Orthopedic Surgery, Tonsillectomy Additional Past Surgical History / Comment(s): Lumbar laminectomy, R knee cartildge surgery, bilateral carpal tunnel released, sen wrist dequevain surgery, R rotator cuff repair, L foot pins and plates, EGD, colonoscopy, R eye laser eye surgery for retinal bleeds, bilateral cataract removals/lens implants. Past Anesthesia/Blood Transfusion Reactions: Motion Sickness Past Psychological History: Depression Smoking Status: Former smoker Past Alcohol Use History: None Reported Past Drug Use History: None Reported - Past Family History Brother(s) Family Medical History: Blood Disorder, Deep Vein Thrombosis (DVT) Mother Additional Family Medical History / Comment(s): Mother had palsey Father Family Medical History: COPD, Myocardial Infarction ([place]) Additional Family Medical History / Comment(s): Father of COPD/[place] at the age of 72 yrs. General Exam Limitations: no limitations General appearance: alert, in no apparent distress Head exam: Present: atraumatic, normocephalic, normal inspection Eye exam: Present: normal appearance, PERRL, EOMI. Absent: scleral icterus, conjunctival injection, periorbital swelling ENT exam: Present: normal exam, mucous membranes moist Neck exam: Present: normal inspection. Absent: tenderness, meningismus, lymphadenopathy Respiratory exam: Present: normal lung sounds bilaterally. Absent: respiratory distress, wheezes, rales, rhonchi, stridor Cardiovascular Exam: Present: regular rate, normal rhythm, normal heart sounds. Absent: systolic murmur, diastolic murmur, rubs, gallop, clicks GI/Abdominal exam: Present: soft, normal bowel sounds. Absent: distended, tenderness, guarding, rebound, rigid Extremities exam: Present: normal inspection, full ROM, normal capillary refill. Absent: tenderness, pedal edema, joint swelling, calf tenderness Back exam: Present: normal inspection Neurological exam: Present: alert, oriented X3, CN II-XII intact Psychiatric exam: Present: normal affect, normal mood Skin exam: Present: warm, dry, intact, normal color. Absent: rash Course Vital Signs 11/14/22 11/14/22 11/14/22 16:09 17:58 21:26 Temperature 97 F L Pulse Rate 72 93 Pulse Rate [ 80 Sitting] Pulse Rate [ 98 Standing] Pulse Rate [ 78 Supine] Respiratory 18 18 Rate Blood Pressure 106/51 116/39 Blood Pressure 123/66 [Left Arm Supine] Blood Pressure 91/51 [Sitting] Blood Pressure 92/60 [Standing] O2 Sat by Pulse 98 97 Oximetry Medical Decision Making - Medical Decision Making Was pt. sent in by a medical professional or institution (, PA, AUDIOPROSTHOLOGIST, urgent care, hospital, or shelter...) When possible be specific @ -No Did you speak to anyone other than the patient for history (EMS, parent, family, police, friend...)? What history was obtained from this source @ -I spoke with the patient's in regards to his history Did you review nursing and triage notes (agree or disagree)? Why? @ -I reviewed and agree with nursing and triage notes Were old charts reviewed (outside hosp., previous admission, EMS record, old EKG, old radiological studies, urgent care reports/EKG's, shelter records)? Report findings @ -I reviewed previous admissions however the patient was admitted for DKA Differential Diagnosis (chest pain, altered mental status, abdominal pain women, abdominal pain men, vaginal bleeding, weakness, fever, dyspnea, syncope, headache, dizziness, GI bleed, back pain, seizure, CVA, palpatations, mental health, musculoskeletal)? @ -Differential Syncope: Valvular disease, hypertrophic cardiomyopathy, pulmonary embolism, tamponade, tachycardia, bradycardia, [place], hypovolemia, hemorrhage, dissection, anemia, intracranial hemorrhage, seizure, hypoglycemia, carbon monoxide poisoning, this is not meant to be an all-inclusive list. EKG interpreted by me (3pts min.). @ -Yes and demonstrates sinus rhythm with a rate of 72. LA interval 152. QRS 94. QTC of 440. Mild ST depression in V2 through V6. No acute ST segment elevation X-rays interpreted by me (1pt min.). @ -Yes and demonstrates no acute intrathoracic process CT interpreted by me (1pt min.). @ -None done U/S interpreted by me (1pt. min.). @ -None done What testing was considered but not performed or refused? (CT, X-rays, U/S, labs)? Why? @ -None What meds were considered but not given or refused? Why? @ -None Did you discuss the management of the patient with other professionals (professionals i.e. , PA, AUDIOPROSTHOLOGIST, lab, RT, psych nurse, socially responsible investment adviser, metal sorter, teacher, inspectors and regulatory officers, family caseworker)? Give summary @ -Spoke with Dr. Gibson who agreed to admit the patient Was smoking cessation discussed for >3mins.? @ -No Was critical care preformed (if so, how long)? @ -No Were there social determinants of health that impacted care today? How? (Homelessness, low income, unemployed, alcoholism, drug addiction, transportation, low edu. Level, literacy, decrease access to med. care, alf, rehab)? @ -No Was there de-escalation of care discussed even if they declined (Discuss DNR or withdrawal of care, Hospice)? DNR status @ -No What co-morbidities impacted this encounter? (DM, HTN, Smoking, COPD, CAD, Cancer, CVA, ARF, Chemo, Hep., AIDS, mental health diagnosis, sleep apnea, morbid obesity)? @ -Orthostatic hypotension Was patient admitted / discharged? Hospital course, mention meds given and route, prescriptions, significant lab abnormalities, going to OR and other pertinent info. @ -Upon arrival patient was placed into hallway 10. History and physical exam was performed. He is placed in continuous pulse ox and cardiac monitoring. 12- lead EKG was obtained. Orthostatics are obtained and are markedly positive. He is given a 500 bolus of normal saline followed by maintenance fluids. Laboratory studies are conducted. Chest x-rays performed. Results are discussed the patient. Due to his multiple presyncopal episodes with hypotension I did recommend admission for fluid hydration and cardiac consultation. Spoke with Dr. Gibson who was agreeable to admit the patient. Patient remained in stable condition awaiting a bed on the floor Undiagnosed new problem with uncertain prognosis? @ -Yes Drug Therapy requiring intensive monitoring for toxicity (Heparin, Nitro, Insulin, Cardizem)? @ -No Were any procedures done? @ -No Diagnosis/symptom? @ -Near syncope, orthostatic hypotension Acute, or Chronic, or Acute on Chronic? @ -Acute Uncomplicated (without systemic symptoms) or Complicated (systemic symptoms)? @ -Complicated Side effects of treatment? @ -No Exacerbation, Progression, or Severe Exacerbation? @ -No Poses a threat to life or bodily function? How? (Chest pain, [place], [place], pneumonia, PE, COPD, DKA, ARF, appy, cholecystitis, CVA, Diverticulitis, Homicidal, Suicidal, threat to staff... and all critical care pts) @ -No - Lab Data Result diagrams: 11/14/22 16:55 11/14/22 16:55 Lab Results 11/14/22 11/14/22 11/14/22 Range/Units 16:55 16:55 16:55 WBC 7.7 (3.8-10.6) k/uL RBC 3.88 L (4.30-5.90) m/uL Hgb 12.8 L (13.0-17.5) gm/dL Hct 38.0 L (39.0-53.0) % MCV 98.0 (80.0-100.0) fL MCH 33.1 (25.0-35.0) pg MCHC 33.8 (31.0-37.0) g/dL RDW 13.6 (11.5-15.5) % Plt Count 197 (150-450) k/uL MPV 8.6 Neutrophils % 65 % Lymphocytes % 28 % Monocytes % 4 % Eosinophils % 1 % Basophils % 0 % Neutrophils # 5.1 (1.3-7.7) k/uL Lymphocytes # 2.1 (1.0-4.8) k/uL Monocytes # 0.3 (0-1.0) k/uL Eosinophils # 0.1 (0-0.7) k/uL Basophils # 0.0 (0-0.2) k/uL PT 10.9 (9.0-12.0) sec INR 1.0 (<1.2) APTT 20.8 L (22.0-30.0) sec Sodium 136 L (137-145) mmol/L Potassium 4.4 (3.5-5.1) mmol/L Chloride 105 (98-107) mmol/L Carbon Dioxide 21 L (22-30) mmol/L Anion Gap 10 mmol/L BUN 16 (9-20) mg/dL Creatinine 1.22 (0.66-1.25) mg/dL Est GFR (CKD-EPI)AfAm 69 (>60 ml/min/1.73 sqM) Est GFR (CKD-EPI)NonAf 60 (>60 ml/min/1.73 sqM) Glucose 270 H (74-99) mg/dL POC Glucose (mg/dL) (70-110) mg/dL POC Glu Ventilating Engineer ID Calcium 8.4 (8.4-10.2) mg/dL Magnesium 1.8 (1.6-2.3) mg/dL Total Bilirubin 0.7 (0.2-1.3) mg/dL AST 26 (17-59) U/L ALT 22 (4-49) U/L Alkaline Phosphatase 60 (38-126) U/L Troponin I (0.000-0.034) ng/mL Total Protein 6.5 (6.3-8.2) g/dL Albumin 3.6 (3.5-5.0) g/dL 11/14/22 11/14/22 Range/Units 16:55 18:41 WBC (3.8-10.6) k/uL RBC (4.30-5.90) m/uL Hgb (13.0-17.5) gm/dL Hct (39.0-53.0) % MCV (80.0-100.0) fL MCH (25.0-35.0) pg MCHC (31.0-37.0) g/dL RDW (11.5-15.5) % Plt Count (150-450) k/uL MPV Neutrophils % % Lymphocytes % % Monocytes % % Eosinophils % % Basophils % % Neutrophils # (1.3-7.7) k/uL Lymphocytes # (1.0-4.8) k/uL Monocytes # (0-1.0) k/uL Eosinophils # (0-0.7) k/uL Basophils # (0-0.2) k/uL PT (9.0-12.0) sec INR (<1.2) APTT (22.0-30.0) sec Sodium (137-145) mmol/L Potassium (3.5-5.1) mmol/L Chloride (98-107) mmol/L Carbon Dioxide (22-30) mmol/L Anion Gap mmol/L BUN (9-20) mg/dL Creatinine (0.66-1.25) mg/dL Est GFR (CKD-EPI)AfAm (>60 ml/min/1.73 sqM) Est GFR (CKD-EPI)NonAf (>60 ml/min/1.73 sqM) Glucose (74-99) mg/dL POC Glucose (mg/dL) 414 H (70-110) mg/dL POC Glu Ventilating Engineer ID [place] Calcium (8.4-10.2) mg/dL Magnesium (1.6-2.3) mg/dL Total Bilirubin (0.2-1.3) mg/dL AST (17-59) U/L ALT (4-49) U/L Alkaline Phosphatase (38-126) U/L Troponin I <0.012 (0.000-0.034) ng/mL Total Protein (6.3-8.2) g/dL Albumin (3.5-5.0) g/dL Disposition Clinical Impression: Orthostatic hypotension, Near syncope Disposition: ADMITTED IP TO THIS [facility] Condition: Stable Is patient prescribed a controlled substance at d/c from ED?: No Time of Disposition: 18:40 Decision to Admit Reason: Admit from EC Decision Date: 11/14/22 Decision Time: 18:40
[2022-11-14] MEDS ORDERED: SODIUM CHLORIDE 0.9% 500 ML 500 ML IV STA (16:44)
[2022-11-14 17:05] LABS: Basophils % (A) 0 %; Eosinophils # (A) 0.1 k/uL (0-0.7); Eosinophils % (A) 1 %; HGB 12.8 gm/dL (13.0-17.5); Lymphocytes # (A) 2.1 k/uL (1.0-4.8); Lymphocytes % (A) 28 %; MCH 33.1 pg (25.0-35.0); MCHC 33.8 g/dL (31.0-37.0); Mean Platelet Volume 8.6; Monocytes # (A) 0.3 k/uL (0-1.0); Monocytes % (A) 4 %; Neutrophils # (A) 5.1 k/uL (1.3-7.7); Neutrophils % (A) 65 %; Platelet Count 197 k/uL (150-450); RBC 3.88 m/uL (4.30-5.90); RDW 13.6 % (11.5-15.5); WBC 7.7 k/uL (3.8-10.6)
[2022-11-14 17:15] LABS: ALT 22 U/L (4-49); AST 26 U/L (17-59); African American GFR (CKD) 69 (>60 ml/min/1.73 sqM); Albumin 3.6 g/dL (3.5-5.0); Alkaline Phosphatase 60 U/L (38-126); Anion Gap 10 mmol/L; Blood Urea Nitrogen 16 mg/dL (9-20); Calcium 8.4 mg/dL (8.4-10.2); Carbon Dioxide 21 mmol/L (22-30); Chloride 105 mmol/L (98-107); Glucose 270 mg/dL (74-99); Magnesium 1.8 mg/dL (1.6-2.3); Non-African American GFR(CKD) 60 (>60 ml/min/1.73 sqM); Potassium 4.4 mmol/L (3.5-5.1); Sodium 136 mmol/L (137-145); Total Bilirubin 0.7 mg/dL (0.2-1.3); Total Protein 6.5 g/dL (6.3-8.2)
[2022-11-14 17:25] LABS: Prothrombin Time 10.9 sec (9.0-12.0)
[2022-11-14 17:27] LABS: Partial Thromboplastin Time 20.8 sec (22.0-30.0)
--- NOTE | 2022-11-14 18:15 | XR ---
EXAMINATION: XR chest 2V: 11/14/2022 5:21 PM CLINICAL INDICATION: syncope TECHNIQUE: Departmental protocol COMPARISON: 10/09/2022 FINDINGS: The lungs are clear. The pleural spaces are negative. The cardiac silhouette is not enlarged. The remainder of the mediastinal silhouette is unremarkable. The skeletal structures and soft tissues are negative for acute findings. IMPRESSION: No acute process.
[2022-11-14] MEDS ORDERED: NALOXONE 0.4 MG/ML 1 ML VIAL IV PRN (18:40)
[2022-11-14 18:42] LABS: Glucose,Whole Blood 414 mg/dL (70-110)
[2022-11-14] MEDS ORDERED: DEXTROSE 50% SYRINGE 50 ML IVP PRN ×2 (19:31)
[2022-11-14 19:34] LABS: Glucose,Whole Blood 411 mg/dL (70-110)
[2022-11-14] MEDS: INSULIN ASPART (NovoLOG) 100 UNIT/ML VIAL SQ SCH (20:14)
[2022-11-14] MEDS ORDERED: ONDANSETRON 4 MG/2 ML VIAL IVP PRN (20:59)
[2022-11-14] MEDS: SODIUM CHLORIDE 0.9% 1,000 ML IV SCH (21:28)
[2022-11-14 22:15] LABS: Glucose,Whole Blood 428 mg/dL (70-110)
[2022-11-14] MEDS ORDERED: INSULIN ASPART (NovoLOG) 100 UNIT/ML VIAL SQ ONE (22:24)
[2022-11-14 23:15] LABS: Glucose,Whole Blood 411 mg/dL (70-110)
[2022-11-14] MEDS: TAMSULOSIN 0.4 MG CAP.ER.24H PO SCH (23:22)
[2022-11-14] MEDS: MEMANTINE 5 MG TAB PO SCH (23:22)
[2022-11-14] MEDS: PANTOPRAZOLE 40 MG TABLET PO SCH (23:22)
[2022-11-15 00:02] LABS: Glucose,Whole Blood 325 mg/dL (70-110)
[2022-11-15] MEDS: SODIUM CHLORIDE 0.9% 1,000 ML IV SCH ×3 (03:18→20:30)
[2022-11-15 06:31] LABS: Glucose,Whole Blood 318 mg/dL (70-110)
[2022-11-15 07:33] LABS: Glucose,Whole Blood 333 mg/dL (70-110)
[2022-11-15 08:00] LABS: Appearance,Urine Clear (Clear); Bilirubin,Urine Negative (Negative); Blood,Urine Negative (Negative); Color,Urine Light Yellow; Glucose,Urine (UA) 3+ (Negative); Ketones,Urine 1+ (Negative); Leukocyte Esterase,Urine Negative (Negative); Nitrite,Urine Negative (Negative); Protein,Urine Negative (Negative); Specific Gravity,Urine 1.009 (1.001-1.035); Urobilinogen,Urine <2.0 mg/dL (<2.0)
[2022-11-15] MEDS: INSULIN ASPART (NovoLOG) 100 UNIT/ML VIAL SQ SCH ×4 (08:57→21:26)
[2022-11-15] MEDS ORDERED: FLUDROCORTISONE 0.1 MG TAB PO SCH (09:00)
[2022-11-15] MEDS: PANTOPRAZOLE 40 MG TABLET PO SCH ×2 (09:12→18:29)
[2022-11-15] MEDS: MEMANTINE 5 MG TAB PO SCH ×2 (09:20→20:32)
[2022-11-15] MEDS: ATORVASTATIN 40 MG TAB PO SCH (09:20)
[2022-11-15] MEDS: DOCUSATE 100 MG CAP PO SCH (09:20)
[2022-11-15] MEDS: ASPIRIN 81 MG PO SCH (09:20)
[2022-11-15] MEDS: ACETAMINOPHEN TAB 500 MG TAB PO SCH ×2 (09:21→20:30)
[2022-11-15] MEDS: FLUDROCORTISONE 0.1 MG TAB PO SCH (09:21)
[2022-11-15] MEDS: LORATADINE 10 MG TAB PO SCH (09:21)
[2022-11-15] MEDS: CITALOPRAM HYDROBROMIDE 20 MG TAB PO SCH (09:21)
[2022-11-15] MEDS: CLOPIDOGREL 75 MG TAB PO SCH (09:21)
[2022-11-15] MEDS: MAGNESIUM OXIDE 400 MG TAB PO SCH (09:21)
--- NOTE | 2022-11-15 09:38 | P.CRDCN ---
History of Present Illness History of present illness: Patient presents to the hospital dizzy spells falls and presyncope/syncope History of 3 episodes of near syncope He follows with Dr. Bhardwaj in the office He has diabetes for the last 50 years and is on an insulin pump Twelve-lead EKG shows sinus rhythm with minimal ST depressions in V2-V6 Chest x-ray normal Hemoglobin 12.8 Electrolytes normal Glucose elevated Troponin normal On examination heart sounds are normal Breath sounds are clear Patient is significantly orthostatic Impression Orthostatic hypotension, likely diabetic autonomic neuropathy Suggest Increase Florinef to 0.2 mg by mouth daily Consider Droxidopa 2 per since the patient does not have supine hypertension. However this drug may not be available in the hospital 2-D echo and Doppler study TSH level Cortisol level Past Medical History Past Medical History: Blood Disorder, Coronary Artery Disease (CAD), Dementia, Diabetes Mellitus, Eye Disorder, GERD/Reflux, Hearing Disorder / Deafness, Hyperlipidemia, Hypertension, Neurologic Disorder, Osteoarthritis (OA), Prostate Disorder, Renal Disease, Syncope Additional Past Medical History / Comment(s): IDDM type I with insulin pump, bilateral legs/feet/arms and hand neuropathy, chronic renal disease, difficulty swallowing, RLS, factor V, early dementia, BPH, bilateral tinnitis, R eye retinal bleeds x2, chronic low back pain with bilateral sciatica which is worse on the right side, bilateral shoulder and cervical pain, History of Any Multi-Drug Resistant Organisms: None Reported Past Surgical History: Adenoidectomy, Back Surgery, Heart Catheterization, Orthopedic Surgery, Tonsillectomy Additional Past Surgical History / Comment(s): Lumbar laminectomy, R knee cartildge surgery, bilateral carpal tunnel released, sen wrist dequevain surgery, R rotator cuff repair, L foot pins and plates, EGD, colonoscopy, R eye laser eye surgery for retinal bleeds, bilateral cataract removals/lens implants. Past Anesthesia/Blood Transfusion Reactions: Motion Sickness Past Psychological History: Depression Smoking Status: Former smoker Past Alcohol Use History: None Reported Past Drug Use History: None Reported - Past Family History Brother(s) Family Medical History: Blood Disorder, Deep Vein Thrombosis (DVT) Mother Additional Family Medical History / Comment(s): Mother had palsey Father Family Medical History: COPD, Myocardial Infarction ([place]) Additional Family Medical History / Comment(s): Father of COPD/[place] at the age of 72 yrs. Medications and Allergies Home Medications Medication Instructions Recorded Confirmed Type Aspirin 81 mg PO DAILY 10/16/13 11/14/22 History Pantoprazole [Protonix] 40 mg PO BID 01/20/18 11/14/22 History rOPINIRole HCL [Requip] 0.5 mg PO HS 30 Days #30 tablet 05/09/18 11/14/22 Rx Tamsulosin [Flomax] 0.4 mg PO HS 11/09/18 11/14/22 History Clopidogrel [Plavix] 75 mg PO DAILY 30 Days #30 tab 11/13/18 11/14/22 Rx Cetirizine HCl [Zyrtec] 10 mg PO DAILY 08/21/22 11/14/22 History Citalopram Hydrobromide 40 mg PO DAILY 08/21/22 11/14/22 History [Citalopram HBr] Fludrocortisone Acetate 0.1 mg PO DAILY 08/21/22 11/14/22 History Docusate [Colace] 300 mg PO DAILY 10/09/22 11/14/22 History Insulin Aspart (For Pump) [NovoLOG 0.01 unit SQ-PUMP CONTINUOUS 10/09/22 11/14/22 History (For Pump)] Magnesium Oxide [Mag-Ox] 400 mg PO DAILY 10/09/22 11/14/22 History Memantine [Namenda] 5 mg PO BID 10/09/22 11/14/22 History Acetaminophen [Tylenol Extra 1,000 mg PO BID 11/14/22 11/14/22 History Strength] Atorvastatin [Lipitor] 40 mg PO DAILY 11/14/22 11/14/22 History Allergies Allergy/AdvReac Type Severity Reaction Status Date / Time No Known Allergies Allergy Verified 11/14/22 19:28 Physical Exam Vitals: Vital Signs Temp Pulse Pulse Pulse Pulse Resp BP 11/15/22 07:00 98.4 F 74 20 11/15/22 02:11 98.2 F 68 14 11/14/22 23:40 98.4 F 89 15 11/14/22 21:26 93 18 116/39 11/14/22 17:58 80 98 78 11/14/22 16:09 97 F L 72 18 106/51 BP BP BP Pulse Ox 11/15/22 07:00 117/62 96 08/25/23 02:11 133/60 96 11/14/22 23:40 129/51 95 11/14/22 21:26 97 11/14/22 17:58 123/66 91/51 92/60 11/14/22 16:09 98 Intake and Output 11/14/22 11/15/22 11/15/22 22:59 06:59 14:59 Other: Weight 127.006 kg 127.006 kg Results 11/14/22 16:55 11/14/22 16:55 Cardiac Enzymes 11/14/22 11/14/22 Range/Units 16:55 16:55 AST 26 (17-59) U/L Troponin I <0.012 (0.000-0.034) ng/mL Coagulation 11/14/22 Range/Units 16:55 PT 10.9 (9.0-12.0) sec APTT 20.8 L (22.0-30.0) sec CBC 11/14/22 Range/Units 16:55 WBC 7.7 (3.8-10.6) k/uL RBC 3.88 L (4.30-5.90) m/uL Hgb 12.8 L (13.0-17.5) gm/dL Hct 38.0 L (39.0-53.0) % Plt Count 197 (150-450) k/uL Comprehensive Metabolic Panel 11/14/22 Range/Units 16:55 Sodium 136 L (137-145) mmol/L Potassium 4.4 (3.5-5.1) mmol/L Chloride 105 (98-107) mmol/L Carbon Dioxide 21 L (22-30) mmol/L BUN 16 (9-20) mg/dL Creatinine 1.22 (0.66-1.25) mg/dL Glucose 270 H (74-99) mg/dL Calcium 8.4 (8.4-10.2) mg/dL AST 26 (17-59) U/L ALT 22 (4-49) U/L Alkaline Phosphatase 60 (38-126) U/L Total Protein 6.5 (6.3-8.2) g/dL Albumin 3.6 (3.5-5.0) g/dL Current Medications Generic Name Dose Route Start Last Admin Trade Name Freq PRN Reason Stop Dose Admin Acetaminophen 1,000 mg 11/15/22 09:00 11/15/22 09:21 Acetaminophen Tab 500 Mg Tab PO 1,000 mg BID MILLY Administration Aspirin 81 mg 11/15/22 09:00 11/15/22 09:20 Aspirin 81 Mg PO 81 mg DAILY MILLY Administration Atorvastatin Calcium 40 mg 11/15/22 09:00 11/15/22 09:20 Atorvastatin 40 Mg Tab PO 40 mg DAILY MILLY Administration Citalopram Hydrobromide 40 mg 11/15/22 09:00 11/15/22 09:21 Citalopram Hydrobromide 20 Mg Tab PO 40 mg DAILY MILLY Administration Clopidogrel Bisulfate 75 mg 11/15/22 09:00 11/15/22 09:21 Clopidogrel 75 Mg Tab PO 75 mg DAILY MILLY Administration Dextrose/Water 25 ml 11/14/22 19:31 Dextrose 50% Syringe 50 Ml IVP PER PROTOCOL PRN Hypoglycemia Protocol Dextrose/Water 50 ml 11/14/22 19:31 Dextrose 50% Syringe 50 Ml IVP PER PROTOCOL PRN Hypoglycemia Protocol Docusate Sodium 300 mg 11/15/22 09:00 11/15/22 09:20 Docusate 100 Mg Cap PO 300 mg DAILY MILLY Administration Fludrocortisone Acetate 0.2 mg 11/15/22 09:00 11/15/22 09:21 Fludrocortisone 0.1 Mg Tab PO 0.2 mg DAILY [facility] Administration Sodium Chloride 1,000 mls @ 130 mls/hr 11/14/22 18:30 11/15/22 03:18 Saline 0.9% IV Not Given .Q7H42M [facility] Insulin Aspart 0 unit 11/14/22 21:00 11/15/22 08:57 Insulin Aspart (Novolog) 100 Unit/Ml Vial SQ Not Given ACHS [facility] Protocol Loratadine 10 mg 11/15/22 09:00 11/15/22 09:21 Loratadine 10 Mg Tab PO 10 mg DAILY MILLY Administration Magnesium Oxide 400 mg 11/15/22 09:00 11/15/22 09:21 Magnesium Oxide 400 Mg Tab PO 400 mg DAILY M[facility]Y Administration Memantine 5 mg 11/14/22 22:30 11/15/22 09:20 Memantine 5 Mg Tab PO 5 mg BID [facility] Administration Naloxone HCl 0.2 mg 11/14/22 18:40 Naloxone 0.4 Mg/Ml 1 Ml Vial IV Q2M PRN Opioid Reversal Ondansetron HCl 4 mg 11/14/22 20:59 11/14/22 21:28 Ondansetron 4 Mg/2 Ml Vial IVP 4 mg Q6HR PRN Administration Nausea And Vomiting Pantoprazole Sodium 40 mg 11/14/22 22:30 11/15/22 09:12 Pantoprazole 40 Mg Tablet PO Not Given AC-BID MILLY Ropinirole HCl 0.5 mg 11/14/22 22:30 11/14/22 23:22 Ropinirole Hcl 0.25 Mg Tab PO 0.5 mg HS MILLY Administration Tamsulosin HCl 0.4 mg 11/14/22 22:30 11/14/22 23:22 Tamsulosin 0.4 Mg Cap.Er.24h PO 0.4 mg HS MILLY Administration Intake and Output 11/14/22 11/15/22 11/15/22 22:59 06:59 14:59 Other: Weight 127.006 kg 127.006 kg 11/14/22 16:55 11/14/22 16:55
[2022-11-15 11:09] LABS: Basophils # (A) 0.02 X 10*3/uL (0.00-0.10); Basophils % (A) 0.3 %; Eosinophils # (A) 0.11 X 10*3/uL (0.04-0.35); Eosinophils % (A) 1.7 %; HCT 34.6 % (39.6-50.0); HGB 11.5 d/dL (13.0-17.0); Lymphocytes # (A) 2.52 X 10*3/uL (0.90-5.00); Lymphocytes % (A) 39.7 %; MCH 32.7 pg (27.0-32.0); MCHC 33.2 d/dL (32.0-37.0); MCV 98.3 FL (80.0-97.0); Mean Platelet Volume 11.3 FL (9.5-12.2); Monocytes # (A) 0.53 X 10*3/uL (0.20-1.00); Monocytes % (A) 8.4 %; NRBC Per 100 WBC 0 X 10*3/uL (0.00-0.01); Neutrophils # (A) 3.15 X 10*3/uL (1.80-7.70); Neutrophils % (A) 49.7 %; Platelet Count 158 X 10*3/uL (140-440); RBC 3.52 X 10*6/uL (4.40-5.60); RDW 13.6 % (11.5-14.5); WBC 6.34 X 10*3/uL (4.50-10.00)
[2022-11-15 11:14] LABS: BUN/Creat Ratio 15.92 Ratio (12.00-20.00); Blood Urea Nitrogen 20.7 mg/dL (9.0-27.0); Calcium 8.5 mg/dL (8.7-10.3); Carbon Dioxide 22.9 mmol/L (21.6-31.8); Chloride 105 mmol/L (96-109); Glucose 296 mg/dL (70-110); Potassium 5.6 mmol/L (3.5-5.5); Sodium 139 mmol/L (135-145)
--- NOTE | 2022-11-15 12:36 | CA ---
Transthoracic Echo Report Name: Yury Brewer Age: 72 Gender: M : 1950 Exam Date: 11/15/2022 10:16 Exam Location: [facility] Ht (in): 72 Wt (lb): 280 Ordering Physician: Javon Rocha MD ([id number]) Attending/Referring Phys: Sales Support Engineer Dayana Naik RDCS Procedure CPT: Indications: near syncope Cardiac Hx: Technical Quality: Poor Contrast 1: Lumason Total Dose (mL): 4 Contrast 2: Total Dose (mL): MEASUREMENTS (Male / Female) Normal Values 2D ECHO LV Diastolic Diameter PLAX 4.8 cm 4.2 - 5.9 / 3.9 - 5.3 cm LV Systolic Diameter PLAX 2.7 cm IVS Diastolic Thickness 1.2 cm 0.6 - 1.0 / 0.6 - 0.9 cm LVPW Diastolic Thickness 1.0 cm 0.6 - 1.0 / 0.6 - 0.9 cm LV Relative Wall Thickness 0.5 RV Internal Dim ED PLAX 4.0 cm LA Volume 60.0 cm??? 18 - 58 / 22 - 52 cm??? M-MODE Aortic Root Diameter MM 3.3 cm LA Systolic Diameter MM 4.2 cm LA Ao Ratio MM 1.3 AV Cusp Separation MM 2.0 cm DOPPLER AV Peak Velocity 131.1 cm/s AV Peak Gradient 6.9 mmHg AV Mean Velocity 78.6 cm/s AV Mean Gradient 2.9 mmHg AV Velocity Time Integral 24.2 cm LVOT Peak Velocity 105.0 cm/s LVOT Peak Gradient 4.4 mmHg LVOT Velocity Time Integral 26.4 cm MV Area PHT 3.1 cm??? Mitral E Point Velocity 88.3 cm/s Mitral A Point Velocity 90.8 cm/s Mitral E to A Ratio 1.0 MV Deceleration Time 244.6 ms MV E' Velocity 6.4 cm/s Mitral E to MV E' Ratio 13.9 TR Peak Velocity 273.7 cm/s TR Peak Gradient 30.0 mmHg Right Ventricular Systolic Press 34.3 mmHg FINDINGS Left Ventricle Mildly increased left ventricular wall thickness. Left ventricular cavity size normal. Normal left ventricular systolic function with no obvious regional wall motion abnormalities. Left ventricular ejection fraction is estimated at 55 %. Right Ventricle Right ventricular dilatation. Right ventricular systolic pressure within normal limits. Right Atrium Right atrium not well visualized. Left Atrium Mildly increased left atrial volume. Mitral Valve Structurally normal mitral valve. No mitral stenosis. Trace mitral regurgitation. Aortic Valve No aortic valve stenosis or regurgitation. Tricuspid Valve Structurally normal tricuspid valve. Pulmonic Valve Pulmonic valve not well visualized. Pericardium No pericardial effusion. Aorta Normal size aortic root and proximal ascending aorta. CONCLUSIONS Previewed by: Dr. Javon Rocha MD (Electronically Signed) Final Date: 15 November 2022 12:35
[2022-11-15 12:52] LABS: Glucose,Whole Blood 408 mg/dL (70-110)
--- NOTE | 2022-11-15 13:29 | P.HPIM ---
History of Present Illness H&P Date: 11/15/22 Yury Brewer, is a 72-year-old male patient who presented with complaints of frequent falls and near syncopal episode. Patient reports he's had many episodes recently of feeling dizzy and generalized weakness. Patient has a past medical history of diabetes mellitus maintained on insulin pump, coronary artery disease, GERD, osteoarthritis, hypertension, hyperlipidemia, renal disease and prostate disorder. Chest x-ray completed showing no acute process. Lab work revealing white blood cell count of 7.7, hemoglobin 12.8, creatinine 1.22 bun 16. Troponin negative. At this time patient will be admitted cardiology services consulted. 2-D echo carotid Doppler ordered. PT OT and social work services consulted. Vital signs temp 98.4, heart rate 74, respiratory rate 20, blood pressure 117/62 with pulse ox 96% on room air. Review of Systems Please refer to HPI otherwise unremarkable Past Medical History Past Medical History: Blood Disorder, Coronary Artery Disease (CAD), Dementia, Diabetes Mellitus, Eye Disorder, GERD/Reflux, Hearing Disorder / Deafness, Hyperlipidemia, Hypertension, Neurologic Disorder, Osteoarthritis (OA), Prostate Disorder, Renal Disease, Syncope Additional Past Medical History / Comment(s): IDDM type I with insulin pump, bilateral legs/feet/arms and hand neuropathy, chronic renal disease, difficulty swallowing, RLS, factor V, early dementia, BPH, bilateral tinnitis, R eye retinal bleeds x2, chronic low back pain with bilateral sciatica which is worse on the right side, bilateral shoulder and cervical pain, History of Any Multi-Drug Resistant Organisms: None Reported Past Surgical History: Adenoidectomy, Back Surgery, Heart Catheterization, Orthopedic Surgery, Tonsillectomy Additional Past Surgical History / Comment(s): Lumbar laminectomy, R knee cartildge surgery, bilateral carpal tunnel released, sen wrist dequevain surgery, R rotator cuff repair, L foot pins and plates, EGD, colonoscopy, R eye laser eye surgery for retinal bleeds, bilateral cataract removals/lens implants. Past Anesthesia/Blood Transfusion Reactions: Motion Sickness Past Psychological History: Depression Smoking Status: Former smoker Past Alcohol Use History: None Reported Past Drug Use History: None Reported - Past Family History Brother(s) Family Medical History: Blood Disorder, Deep Vein Thrombosis (DVT) Mother Additional Family Medical History / Comment(s): Mother had palsey Father Family Medical History: COPD, Myocardial Infarction (UT) Additional Family Medical History / Comment(s): Father of COPD/UT at the age of 72 yrs. Medications and Allergies Home Medications Medication Instructions Recorded Confirmed Type Aspirin 81 mg PO DAILY 10/16/13 11/14/22 History Pantoprazole [Protonix] 40 mg PO BID 01/20/18 11/14/22 History rOPINIRole HCL [Requip] 0.5 mg PO HS 30 Days #30 tablet 05/09/18 11/14/22 Rx Tamsulosin [Flomax] 0.4 mg PO HS 11/09/18 11/14/22 History Clopidogrel [Plavix] 75 mg PO DAILY 30 Days #30 tab 11/13/18 11/14/22 Rx Cetirizine HCl [Zyrtec] 10 mg PO DAILY 08/21/22 11/14/22 History Citalopram Hydrobromide 40 mg PO DAILY 08/21/22 11/14/22 History [Citalopram HBr] Fludrocortisone Acetate 0.1 mg PO DAILY 08/21/22 11/14/22 History Docusate [Colace] 300 mg PO DAILY 10/09/22 11/14/22 History Insulin Aspart (For Pump) [NovoLOG 0.01 unit SQ-PUMP CONTINUOUS 10/09/22 11/14/22 History (For Pump)] Magnesium Oxide [Mag-Ox] 400 mg PO DAILY 10/09/22 11/14/22 History Memantine [Namenda] 5 mg PO BID 10/09/22 11/14/22 History Acetaminophen [Tylenol Extra 1,000 mg PO BID 11/14/22 11/14/22 History Strength] Atorvastatin [Lipitor] 40 mg PO DAILY 11/14/22 11/14/22 History Allergies Allergy/AdvReac Type Severity Reaction Status Date / Time No Known Allergies Allergy Verified 11/14/22 19:28 Physical Exam Vitals: Vital Signs Temp Pulse Pulse Pulse Pulse Resp BP 11/15/22 07:00 98.4 F 74 20 11/15/22 02:11 98.2 F 68 14 11/14/22 23:40 98.4 F 89 15 11/14/22 21:26 93 18 116/39 11/14/22 17:58 80 98 78 11/14/22 16:09 97 F L 72 18 106/51 BP BP BP Pulse Ox 11/15/22 07:00 117/62 96 11/15/22 02:11 133/60 96 11/14/22 23:40 129/51 95 11/14/22 21:26 97 11/14/22 17:58 123/66 91/51 92/60 11/14/22 16:09 98 Intake and Output 11/14/22 11/15/22 11/15/22 22:59 06:59 14:59 Other: Weight 127.006 kg 127.006 kg In general patient is alert and oriented 3 in no apparent distress Head normocephalic and atraumatic Neck supple no JVD no goiter Lungs clear to auscultation bilaterally no wheezing or crackles Heart regular rate and rhythm S1-S2, no rub or gallop Abdomen is soft nontender nondistended positive bowel sounds no hepatosplenomegaly Extremities no edema Neuro no gross focal deficit Results CBC & Chem 7: 11/15/22 05:59 11/15/22 05:59 Labs: Abnormal Lab Results - Last 24 Hours (Table) 11/14/22 11/14/22 11/14/22 Range/Units 16:55 16:55 16:55 RBC 3.88 L (4.30-5.90) m/uL Hgb 12.8 L (13.0-17.5) gm/dL Hct 38.0 L (39.0-53.0) % APTT 20.8 L (22.0-30.0) sec Sodium 136 L (137-145) mmol/L Carbon Dioxide 21 L (22-30) mmol/L Glucose 270 H (74-99) mg/dL POC Glucose (mg/dL) (70-110) mg/dL Urine Glucose (UA) (Negative) Urine Ketones (Negative) 11/14/22 11/14/22 11/14/22 Range/Units 18:41 19:33 22:13 RBC (4.30-5.90) m/uL Hgb (13.0-17.5) gm/dL Hct (39.0-53.0) % APTT (22.0-30.0) sec Sodium (137-145) mmol/L Carbon Dioxide (22-30) mmol/L Glucose (74-99) mg/dL POC Glucose (mg/dL) 414 H 411 H 428 H (70-110) mg/dL Urine Glucose (UA) (Negative) Urine Ketones (Negative) 11/14/22 11/14/22 11/15/22 Range/Units 23:13 23:59 06:30 RBC (4.30-5.90) m/uL Hgb (13.0-17.5) gm/dL Hct (39.0-53.0) % APTT (22.0-30.0) sec Sodium (137-145) mmol/L Carbon Dioxide (22-30) mmol/L Glucose (74-99) mg/dL POC Glucose (mg/dL) 411 H 325 H 318 H (70-110) mg/dL Urine Glucose (UA) (Negative) Urine Ketones (Negative) 11/15/22 11/15/22 Range/Units 07:00 07:32 RBC (4.30-5.90) m/uL Hgb (13.0-17.5) gm/dL Hct (39.0-53.0) % APTT (22.0-30.0) sec Sodium (137-145) mmol/L Carbon Dioxide (22-30) mmol/L Glucose (74-99) mg/dL POC Glucose (mg/dL) 333 H (70-110) mg/dL Urine Glucose (UA) 3+ H (Negative) Urine Ketones 1+ H (Negative) Assessment and Plan Assessment: 1. Fall secondary to near syncopal episode 2. Diabetes mellitus type 1 maintained on insulin pump 3. Generalized weakness. PT OT services consulted 4. History of coronary artery disease 5. History of chronic renal disease stage III 6. History of neuropathy 7. History of chronic back pain with previous lumbar laminectomy 8. History of GERD 9. History of factor V disorder 10. History of essential hypertension DVT prophylaxis Lovenox. GI prophylaxis Protonix Cardiology services consulted 2-D echo and carotid Doppler ordered Repeat labs ordered PT OT and social work services consulted Time with Patient: Greater than 30 (Greater than 60% of the total time spent in counseling and coordination of care)
--- NOTE | 2022-11-15 14:30 | US ---
EXAMINATION TYPE: US carotid duplex BILAT DATE OF EXAM: 11/15/2022 COMPARISON: NONE CLINICAL INDICATION: Male, 72 years old with history of syncope; Syncope TECHNIQUE: Carotid duplex ultrasound examination. Indirect Doppler criteria was utilized. FINDINGS: EXAM MEASUREMENTS: RIGHT: Peak Systolic Velocity (PSV) cm/sec ----- Right CCA: 86.0 ----- Right ICA: 146.1 ----- Right ECA: 199.6 ICA/CCA ratio: 1.7 RIGHT: End Diastole cm/sec ----- Right CCA: 11.6 ----- Right ICA: 20.7 ----- Right ECA: 0.0 LEFT: Peak Systolic Velocity (PSV) cm/sec ----- Left CCA: 98.4 ----- Left ICA: 101.6 ----- Left ECA: 216.3 ICA/CCA ratio: 1.0 LEFT: End Diastole cm/sec ----- Left CCA: 6.3 ----- Left ICA: 14.4 ----- Left ECA: 0.0 VERTEBRALS (direction of flow): Right Vertebral: Antegrade Left Vertebral: Antegrade Rhythm: Normal COMIC ARTIST NOTES: Elevated velocities right ICA and ECA, elevated velocities left ECA IMPRESSION: 1. 50-69% stenosis of the right carotid bifurcation. 2. Less than 50% stenosis of the left carotid bifurcation. Criteria for Assigning % of Stenosis / Diameter reduction (Estimation based on the indirect measurements of the internal carotid artery velocities (ICA PSV). 1. Normal (no stenosis)=ICA PSV < 125 cm/s: ratio < 2.0: ICA EDV<40 cm/s. 2. Less than 50% stenosis=ICA PSV < 125 cm/s: ratio < 2.0: ICA EDV<40 cm/s. 3. 50 to 69% stenosis=ICA PSV of 125 to 230 cm/s: ration 2.0 ? 4.0: ICA EDV 40-100 cm/s. 4. Greater than 70% stenosis to near occlusion= ICA PSV > 230 cm/s: ratio > 4.0: ICA EDV > 100 cm/s. 5. Near occlusion= ICA PSV velocities may be low or undetectable: variable ratio and ICA EDV. 6. Total occlusion=unable to detect flow.
[2022-11-15 17:05] LABS: Glucose,Whole Blood 398 mg/dL (70-110)
[2022-11-15 20:16] LABS: Glucose,Whole Blood 341 mg/dL (70-110)
[2022-11-15] MEDS: TAMSULOSIN 0.4 MG CAP.ER.24H PO SCH (20:31)
[2022-11-15 21:25] LABS: Glucose,Whole Blood 311 mg/dL (70-110)
[2022-11-16] MEDS: SODIUM CHLORIDE 0.9% 1,000 ML IV SCH (04:53)
[2022-11-16 06:13] LABS: Glucose,Whole Blood 352 mg/dL (70-110)
[2022-11-16] MEDS: INSULIN ASPART (NovoLOG) 100 UNIT/ML VIAL SQ SCH ×2 (06:20→13:41)
[2022-11-16] MEDS: PANTOPRAZOLE 40 MG TABLET PO SCH (06:21)
[2022-11-16 06:38] LABS: Basophils % (A) 0 %; Eosinophils # (A) 0.2 k/uL (0-0.7); Eosinophils % (A) 4 %; HCT 36.7 % (39.0-53.0); HGB 12.1 gm/dL (13.0-17.5); Lymphocytes # (A) 2.4 k/uL (1.0-4.8); Lymphocytes % (A) 48 %; MCH 33.3 pg (25.0-35.0); MCHC 32.8 g/dL (31.0-37.0); MCV 101.4 fL (80.0-100.0); Macrocytosis Slight; Mean Platelet Volume 8.3; Monocytes # (A) 0.2 k/uL (0-1.0); Monocytes % (A) 3 %; Neutrophils # (A) 2.2 k/uL (1.3-7.7); Neutrophils % (A) 43 %; Platelet Count 175 k/uL (150-450); RBC 3.62 m/uL (4.30-5.90); RDW 13.5 % (11.5-15.5)
[2022-11-16 06:57] LABS: ALT 21 U/L (4-49); AST 26 U/L (17-59); African American GFR (CKD) >90 (>60 ml/min/1.73 sqM); Albumin 3.1 g/dL (3.5-5.0); Albumin/Globulin Ratio 1.2; Alkaline Phosphatase 52 U/L (38-126); Anion Gap 8 mmol/L; Blood Urea Nitrogen 19 mg/dL (9-20); Carbon Dioxide 22 mmol/L (22-30); Chloride 106 mmol/L (98-107); Globulin 2.6 g/dL; Glucose 327 mg/dL (74-99); Non-African American GFR(CKD) 78 (>60 ml/min/1.73 sqM); Potassium 5.4 mmol/L (3.5-5.1); Sodium 136 mmol/L (137-145); Total Bilirubin 0.6 mg/dL (0.2-1.3); Total Protein 5.7 g/dL (6.3-8.2)
[2022-11-16 08:01] VITALS: RESP 16; TEMP 98.3
[2022-11-16] MEDS ORDERED: ENOXAPARIN 40 MG/0.4 ML SYRINGE SQ SCH (09:00)
[2022-11-16] MEDS: MEMANTINE 5 MG TAB PO SCH (09:29)
[2022-11-16] MEDS: LORATADINE 10 MG TAB PO SCH (09:29)
[2022-11-16] MEDS: CLOPIDOGREL 75 MG TAB PO SCH (09:29)
[2022-11-16] MEDS: FLUDROCORTISONE 0.1 MG TAB PO SCH (09:29)
[2022-11-16] MEDS: MAGNESIUM OXIDE 400 MG TAB PO SCH (09:30)
[2022-11-16] MEDS: DOCUSATE 100 MG CAP PO SCH (09:30)
[2022-11-16] MEDS: ASPIRIN 81 MG PO SCH (09:30)
[2022-11-16] MEDS: ATORVASTATIN 40 MG TAB PO SCH (09:30)
[2022-11-16] MEDS: CITALOPRAM HYDROBROMIDE 20 MG TAB PO SCH (09:30)
[2022-11-16] MEDS: ACETAMINOPHEN TAB 500 MG TAB PO SCH (09:30)
--- NOTE | 2022-11-16 10:54 | P.PN ---
Subjective Progress Note Date: 11/16/22 Subjective: Echo shows an EF of 50-55% with no major valvular abnormality. No aortic stenosis. Carotid Doppler shows 50-69% right stenosis, less than 50% left stenosis Synopsis: Patient presents to the hospital dizzy spells falls and presyncope/syncope History of 3 episodes of near syncope He follows with Dr. Bhardwaj in the office He has diabetes for the last 50 years and is on an insulin pump Twelve-lead EKG shows sinus rhythm with minimal ST depressions in V2-V6 Chest x-ray normal Hemoglobin 12.8 Electrolytes normal Glucose elevated Troponin normal Cortisol 2.2, is low On examination heart sounds are normal Breath sounds are clear Patient is significantly orthostatic Impression Orthostatic hypotension, likely diabetic autonomic neuropathy Cortisol measuring at 2.2 Suggest Increase Florinef to 0.2 mg by mouth daily Consider Droxidopa 2 per since the patient does not have supine hypertension. However this drug may not be available in the hospital Patient's echocardiogram and labs essentially within normal limits. He does have low cholesterol and concerns of possible hypoaldosteronism. I think he would benefit from Florinef. On review of his medication he is on aspirin and Plavix. There is no clear indication for him being on Plavix. He does not have any prior recent PCI R any strokes in past. I will discontinue his Plavix and keep him on baby aspirin. We will continue his other current cardiac medications without any changes. Please discharge him on Florinef. Patient follows up with Dr. Bhardwaj in 2-3 weeks Clear to discharge from cardiology Objective - Vital Signs Vital signs: Vital Signs Temp 98.3 F 11/16/22 07:00 Pulse 72 11/16/22 07:00 Resp 16 11/16/22 07:00 BP 151/67 11/16/22 07:00 Pulse Ox 94 L 11/16/22 07:00 FiO2 Intake & Output 11/15/22 11/16/22 11/16/22 18:59 06:59 18:59 Intake Total 240 Output Total 680 Balance 240 -680 Intake: Oral 240 Output: Urine 680 Other: # Voids 2 3 - Labs CBC & Chem 7: 11/16/22 06:11 11/16/22 06:11 Labs: Abnormal Lab Results - Last 24 Hours (Table) 11/15/22 11/15/22 11/15/22 Range/Units 05:59 05:59 05:59 RBC 3.52 L (4.40-5.60) X 10*6/uL Hgb 11.5 L (13.0-17.0) d/dL Hct 34.6 L (39.6-50.0) % MCV 98.3 H (80.0-97.0) FL MCH 32.7 H (27.0-32.0) pg Sodium (137-145) mmol/L Potassium 5.6 H (3.5-5.5) mmol/L Est GFR (CKD-EPI) 59 L (>=60) Glucose 296 H (70-110) mg/dL POC Glucose (mg/dL) (70-110) mg/dL Hemoglobin A1c 9.2 H (<=6.0) % Calcium 8.5 L (8.7-10.3) mg/dL Total Protein (6.3-8.2) g/dL Albumin (3.5-5.0) g/dL Cortisol (3.1-22.4) UG/DL 11/15/22 11/15/22 11/15/22 Range/Units 11:18 12:50 17:01 RBC (4.40-5.60) X 10*6/uL Hgb (13.0-17.0) d/dL Hct (39.6-50.0) % MCV (80.0-97.0) FL MCH (27.0-32.0) pg Sodium (137-145) mmol/L Potassium (3.5-5.5) mmol/L Est GFR (CKD-EPI) (>=60) Glucose (70-110) mg/dL POC Glucose (mg/dL) 408 H 398 H (70-110) mg/dL Hemoglobin A1c (<=6.0) % Calcium (8.7-10.3) mg/dL Total Protein (6.3-8.2) g/dL Albumin (3.5-5.0) g/dL Cortisol 2.2 L (3.1-22.4) UG/DL 11/15/22 11/15/22 11/16/22 Range/Units 20:15 21:24 06:11 RBC 3.62 L (4.40-5.60) X 10*6/uL Hgb 12.1 L (13.0-17.0) d/dL Hct 36.7 L (39.6-50.0) % MCV 101.4 H (80.0-97.0) FL MCH (27.0-32.0) pg Sodium (137-145) mmol/L Potassium (3.5-5.5) mmol/L Est GFR (CKD-EPI) (>=60) Glucose (70-110) mg/dL POC Glucose (mg/dL) 341 H 311 H (70-110) mg/dL Hemoglobin A1c (<=6.0) % Calcium (8.7-10.3) mg/dL Total Protein (6.3-8.2) g/dL Albumin (3.5-5.0) g/dL Cortisol (3.1-22.4) UG/DL 11/16/22 11/16/22 Range/Units 06:11 06:12 RBC (4.40-5.60) X 10*6/uL Hgb (13.0-17.0) d/dL Hct (39.6-50.0) % MCV (80.0-97.0) FL MCH (27.0-32.0) pg Sodium 136 L (137-145) mmol/L Potassium 5.4 H (3.5-5.5) mmol/L Est GFR (CKD-EPI) (>=60) Glucose 327 H (70-110) mg/dL POC Glucose (mg/dL) 352 H (70-110) mg/dL Hemoglobin A1c (<=6.0) % Calcium 8.0 L (8.7-10.3) mg/dL Total Protein 5.7 L (6.3-8.2) g/dL Albumin 3.1 L (3.5-5.0) g/dL Cortisol (3.1-22.4) UG/DL
[2022-11-16 12:04] LABS: Glucose,Whole Blood 375 mg/dL (70-110)
[2022-11-16 13:09] VITALS: BMI 38.0
[2022-11-16] MEDS ORDERED: Insulin Aspart (For Pump) 100 UNIT/ML VIAL SQ-PUMP SCH (13:15)
--- NOTE | 2022-11-16 13:23 | P.DS ---
Providers Date of admission: 11/14/22 18:43 Expected date of discharge: 11/16/22 Attending physician: Ej Gibson Consults: 11/14/22 18:52 Consult Physician Urgent Consulting Provider: [facility] Reason/Comments: orthostatic hypotension Do you want consulting provider notified?: Yes Primary care physician: Ej Pa[facility] Course: Diagnosis on discharge: 1. Fall secondary to near syncopal episode 2. Diabetes mellitus type 1 maintained on insulin pump 3. Autonomic dysfunction related to diabetes mellitus, cardiology increased dose of Florinef from 0.1 mg to 0.2 mg daily 4. History of coronary artery disease 5. History of chronic renal disease stage III 6. History of neuropathy 7. History of chronic back pain with previous lumbar laminectomy 8. History of GERD 9. History of factor V disorder 10. History of essential hypertension Generalized weakness. PT OT services consulted Hospital course: Yury Brewer, is a 72-year-old male patient who presented with complaints of frequent falls and near syncopal episode. Patient reports he's had many episodes recently of feeling dizzy and generalized weakness. Patient has a past medical history of diabetes mellitus maintained on insulin pump, coronary artery disease, GERD, osteoarthritis, hypertension, hyperlipidemia, renal disease and prostate disorder. Chest x-ray completed showing no acute process. Lab work revealing white blood cell count of 7.7, hemoglobin 12.8, creatinine 1.22 bun 16. Troponin negative. At this time patient will be admitted cardiology services consulted. 2-D echo carotid Doppler ordered. PT OT and social work services consulted. Vital signs temp 98.4, heart rate 74, respiratory rate 20, blood pressure 117/62 with pulse ox 96% on room air. On 11/16/2022, patient was seen and examined on the medical floor, he is alert and oriented 3 in no apparent distress there is no fever or chills no headache or dizziness no chest pain, no shortness of breath no cough no nausea or vomiting no abdominal pain no diarrhea and no urinary symptoms. Patient was evaluated by cardiology, echocardiogram and carotid Doppler were done and reviewed, recommendation by cardiology is to discontinue Plavix, and increase Florinef to 0.2 mg daily. Patient will be discharged to home today, will follow in the office in the next 3-4 days Patient Condition at Discharge: Stable Plan - Discharge Summary New Discharge Prescriptions: Continue Aspirin 81 mg PO DAILY Pantoprazole [Protonix] 40 mg PO BID rOPINIRole HCL [Requip] 0.5 mg PO HS 30 Days #30 tablet Tamsulosin [Flomax] 0.4 mg PO HS Cetirizine HCl [Zyrtec] 10 mg PO DAILY Magnesium Oxide [Mag-Ox] 400 mg PO DAILY Memantine [Namenda] 5 mg PO BID Insulin Aspart (For Pump) [NovoLOG (For Pump)] 0.01 unit SQ-PUMP CONTINUOUS Atorvastatin [Lipitor] 40 mg PO DAILY Acetaminophen [Tylenol Extra Strength] 1,000 mg PO BID Fludrocortisone Acetate 0.1 mg PO DAILY Citalopram Hydrobromide [Citalopram HBr] 40 mg PO DAILY Docusate [Colace] 300 mg PO DAILY Discontinued Clopidogrel [Plavix] 75 mg PO DAILY 30 Days #30 tab Discharge Medication List Aspirin 81 mg PO DAILY 10/16/13 [History] Pantoprazole [Protonix] 40 mg PO BID 01/20/18 [History] rOPINIRole HCL [Requip] 0.5 mg PO HS 30 Days #30 tablet 05/09/18 [Rx] Tamsulosin [Flomax] 0.4 mg PO HS 11/09/18 [History] Cetirizine HCl [Zyrtec] 10 mg PO DAILY 08/21/22 [History] Citalopram Hydrobromide [Citalopram HBr] 40 mg PO DAILY 08/21/22 [History] Fludrocortisone Acetate 0.1 mg PO DAILY 08/21/22 [History] Docusate [Colace] 300 mg PO DAILY 10/09/22 [History] Insulin Aspart (For Pump) [NovoLOG (For Pump)] 0.01 unit SQ-PUMP CONTINUOUS 10/09/22 [History] Magnesium Oxide [Mag-Ox] 400 mg PO DAILY 10/09/22 [History] Memantine [Namenda] 5 mg PO BID 10/09/22 [History] Acetaminophen [Tylenol Extra Strength] 1,000 mg PO BID 11/14/22 [History] Atorvastatin [Lipitor] 40 mg PO DAILY 11/14/22 [History] Follow up Appointment(s)/Referral(s): [facility] [NON-STAFF] - 1 Week Ej Gibson MD [Primary Care Provider] - 1-2 days Discharge/Stand Alone Forms: Who Do I Call?, Community Resources, [employer]
[2022-11-16 14:47] VITALS: BP 113/60; PULSE 89
== END 2022-11-16 14:58 | disposition home or self-care (01) ==
LOC: EC 16:07 → 6NMEDSUR 18:43
PROVIDERS: ADMIT Internal Medicine; ATTEND Internal Medicine
DX: I95.1 Orthostatic hypotension (principal); I25.10 Atherosclerotic heart disease of native coronary artery without angina pectoris; F03.90 Unspecified dementia, unspecified severity, without behavioral disturbance, psychotic disturbance, mood disturbance, and anxiety; K21.9 Gastro-esophageal reflux disease without esophagitis; E78.5 Hyperlipidemia, unspecified; N40.0 Benign prostatic hyperplasia without lower urinary tract symptoms; E10.43 Type 1 diabetes mellitus with diabetic autonomic (poly)neuropathy; E10.22 Type 1 diabetes mellitus with diabetic chronic kidney disease; G89.29 Other chronic pain; M54.50 Low back pain, unspecified; G25.81 Restless legs syndrome; F32.A Depression, unspecified; R53.1 Weakness; I12.9 Hypertensive chronic kidney disease with stage 1 through stage 4 chronic kidney disease, or unspecified chronic kidney disease; N18.30 Chronic kidney disease, stage 3 unspecified; R29.6 Repeated falls; I65.23 Occlusion and stenosis of bilateral carotid arteries; Z87.891 Personal history of nicotine dependence; Z96.41 Presence of insulin pump (external) (internal); Z79.82 Long term (current) use of aspirin; Z79.02 Long term (current) use of antithrombotics/antiplatelets; Z79.899 Other long term (current) drug therapy
CPT/HCPCS: 96372 ×3; 96361; 96374; 99285; 36415; 93005; 97162; 80053 ×2; 80048; 82533; 83735; 84484; 85025 ×3; 85610; 85730; 81003; 83036; 71046; 93880; G0378 ×3; C8929; J2405; J1650; Q9950; 93306

== ENCOUNTER 2022-12-27 16:17 | Inpatient (IN) | payer MEDICARE, OTHER ==
[2022-12-27 17:31] LABS: Basophils % (A) 0 %; Eosinophils # (A) 0.1 k/uL (0-0.7); Eosinophils % (A) 3 %; HGB 13.3 gm/dL (13.0-17.5); Lymphocytes # (A) 1.7 k/uL (1.0-4.8); Lymphocytes % (A) 30 %; MCH 33.1 pg (25.0-35.0); MCHC 33.2 g/dL (31.0-37.0); MCV 99.6 fL (80.0-100.0); Mean Platelet Volume 8.7; Monocytes # (A) 0.4 k/uL (0-1.0); Monocytes % (A) 7 %; Neutrophils # (A) 3.2 k/uL (1.3-7.7); Neutrophils % (A) 59 %; Platelet Count 208 k/uL (150-450); RBC 4.02 m/uL (4.30-5.90); RDW 13.9 % (11.5-15.5); WBC 5.5 k/uL (3.8-10.6)
[2022-12-27 17:43] LABS: ALT 60 U/L (4-49); AST 92 U/L (17-59); African American GFR (CKD) >90 (>60 ml/min/1.73 sqM); Albumin 3.9 g/dL (3.5-5.0); Alkaline Phosphatase 87 U/L (38-126); Anion Gap 7 mmol/L; Blood Urea Nitrogen 13 mg/dL (9-20); Calcium 8.3 mg/dL (8.4-10.2); Carbon Dioxide 24 mmol/L (22-30); Chloride 108 mmol/L (98-107); Creatine Kinase 95 U/L (55-170); Glucose 114 mg/dL (74-99); Non-African American GFR(CKD) >90 (>60 ml/min/1.73 sqM); Sodium 139 mmol/L (137-145); Total Bilirubin 1.4 mg/dL (0.2-1.3); Total Protein 7.2 g/dL (6.3-8.2)
[2022-12-27 17:53] LABS: INR 1.1 (<1.2); Partial Thromboplastin Time 22.8 sec (22.0-30.0); Prothrombin Time 11.4 sec (9.0-12.0)
[2022-12-27 18:00] LABS: Potassium 4.6 mmol/L (3.5-5.1)
--- NOTE | 2022-12-27 19:08 | XR ---
EXAMINATION TYPE: XR chest 2V DATE OF EXAM: 12/27/2022 6:49 PM CLINICAL INDICATION:Male, 72 years old with history of altered mental status; [facility] COMPARISON: Chest radiographs from 11/14/2022 TECHNIQUE: XR chest 2V Frontal and lateral views of the chest. FINDINGS: Lungs/Pleura: There is flattening of the diaphragm with increased lucency of the lungs. No evidence o f pneumothorax, pleural effusion or focal consolidation. Pulmonary vascularity: Mild pulmonary vascular congestion. Heart/mediastinum: Cardiomediastinal silhouette is prominent in size. Musculoskeletal: No acute osseous pathology. IMPRESSION: Cardiac prominence with pleural effusions on lateral view correlate with serum BNP.
--- NOTE | 2022-12-27 19:13 | CT ---
EXAMINATION TYPE: CT brain wo con CT DLP: 1201 mGycm, Automated exposure control for dose reduction was used. DATE OF EXAM: 12/27/2022 6:48 PM COMPARISON: 02/26/2021. CLINICAL INDICATION:Male, 72 years old with history of AMS, Pt woke up with slurred speech yesterday, pt woke up today with rt hand numbness and additional confusion. TECHNIQUE: Brain: Axial CT images of the brain were obtained with coronal and sagittal reformats created and rev iewed. Contrast used: None. Oral contrast used: None. FINDINGS: Brain: Extra-axial spaces: No abnormal extra-axial fluid collections. Ventricular system: Dilatation in proportion to cerebral atrophy. Cerebral parenchyma: No acute intraparenchymal hemorrhage or mass effect. The maria-white junction is well differentiated. Scattered hypoattenuating areas are seen within the white matter. Cerebellum: Unremarkable. Mass effect: No evidence of midline shift. Intracranial vasculature: Atherosclerotic calcifications of the intracranial vessels. Soft tissues: Normal. Calvarium/osseous structures: No depressed skull fracture. Paranasal sinuses and mastoid air cells: Mild scattered paranasal sinus disease. Visualized orbits: Orbital contents are intact. IMPRESSION: 1. No acute intracranial process. 2. Nonspecific white matter changes, likely secondary to chronic small vessel ischemic disease.
--- NOTE | 2022-12-27 19:15 | CT ---
EXAMINATION TYPE: CT angio head neck CT DLP: 863.9 mGycm, Automated exposure control for dose reduction was used. DATE OF EXAM: 12/27/2022 6:58 PM COMPARISON: CT same day. CLINICAL INDICATION:Male, 72 years old with history of AMS; [facility], Pt woke up with slurred speech yeste rday, pt woke up today with rt hand numbness and additional confusion. TECHNIQUE: Axially acquired helical CT angiogram of the head and neck was obtained with contrast. Axi al images are supplemented with 3D reconstructions which [facility] NASCET criteria used. Contrast used:65 ml mL of Isovue 370 with IV Contrast, Oral contrast used: None. FINDINGS: CTA HEAD: No evidence of acute intracranial hemorrhage, mass effect, or midline shift. The ventricles, sulci, a nd cisterns are unremarkable. The visualized portions of the internal carotid arteries, middle cerebral arteries, anterior cerebral arteries, and posterior cerebral arteries are patent. The basilar and vertebral arteries are patent. CTA NECK: Right Carotid System: The common carotid and external carotid arteries are patent. There is less than 25-50 % stenosis at t he carotid bifurcation secondary to calcified/noncalcified plaque. The rest of the internal carotid a rtery is patent. Left Carotid System: The common carotid and external carotid arteries are patent. There is less than 25-50 % stenosis at t he carotid bifurcation secondary to calcified/noncalcified plaque. The rest of the internal carotid a rtery is patent. Vertebral arteries are patent without evidence hemodynamically significant stenosis. There is a three-vessel aortic arch. The origins of the great vessels are patent. No evidence of hemo dynamically significant stenosis. Upper thorax: Moderate bilateral pleural effusions. There may be mild pulmonary vascular congestion. IMPRESSION: 1. No evidence of dissection of the cervical internal carotid arteries or vertebral arteries or any e vidence of significant stenosis at the carotid bifurcations. 2. No evidence of intracranial high-grade stenosis or intracranial aneurysm. 3. Moderate bilateral pleural effusions possible tumor vascular congestion correlate with serum BNP.
[2022-12-27] MEDS ORDERED: ASPIRIN 325 MG TAB PO STA (19:47)
--- NOTE | 2022-12-27 19:47 | ED ---
General Adult HPI - General Chief complaint: Neuro Symptoms/Deficit Stated complaint: AMS, poss stroke Time Seen by Provider: 12/27/22 16:44 Source: patient, RN notes reviewed, old records reviewed Mode of arrival: ambulatory Limitations: no limitations - History of Present Illness Initial comments: Patient is a 72-year-old male with past medical history remarkable for diabetes, dementia, hypertension, hyperlipidemia who presents emergency department for TIA symptoms. Yesterday awoke with some facial drooping and slurred speech which resolved. This morning awoke with right hand numbness and weakness. Both ears have confusion. All symptoms have since resolved. Patient back to his baseline mental status. No previous CVA. Denies any chest pain or shortness of breath, denies any other acute complaints including dysuria hematuria. Denies any cough, fevers, chills. They became concerned and brought the patient in for evaluation. Presents with his . Denies any recent falls or trauma. They're worried about possible stroke. Currently patient has no symptoms and is at his normal baseline. - Related Data Home Medications Medication Instructions Recorded Confirmed Aspirin 81 mg PO DAILY 10/16/13 12/27/22 Pantoprazole [Protonix] 40 mg PO BID 01/20/18 12/27/22 Tamsulosin [Flomax] 0.4 mg PO HS 11/09/18 12/27/22 Cetirizine HCl [Zyrtec] 10 mg PO DAILY 08/21/22 12/27/22 Citalopram Hydrobromide 40 mg PO DAILY 08/21/22 12/27/22 [Citalopram HBr] Fludrocortisone Acetate 0.2 mg PO DAILY 08/21/22 12/27/22 Docusate [Colace] 300 mg PO DAILY 10/09/22 12/27/22 Insulin Aspart (For Pump) [NovoLOG 0.01 unit SQ-PUMP CONTINUOUS 10/09/22 12/27/22 (For Pump)] Memantine [Namenda] 5 mg PO BID 10/09/22 12/27/22 Acetaminophen [Tylenol Extra 1,000 mg PO BID 11/14/22 12/27/22 Strength] Atorvastatin [Lipitor] 40 mg PO HS 11/14/22 12/27/22 Finasteride [Proscar] 5 mg PO DAILY 12/27/22 12/27/22 Previous Rx's Medication Instructions Recorded rOPINIRole HCL [Requip] 0.5 mg PO HS 30 Days #30 tablet 05/09/18 Allergies Allergy/AdvReac Type Severity Reaction Status Date / Time No Known Allergies Allergy Verified 12/27/22 20:15 Review of Systems ROS Statement: Those systems with pertinent positive or pertinent negative responses have been documented in the HPI. Review of Systems: CONST: Denies fever EYES: Denies blurry vision ENT: Denies nasal congestion C/V: Denies Chest pain RESP: Denies shortness of breath GI: Denies abdominal pain : Denies dysuria SKIN: Denies rash. MSK: Denies joint pain. NEURO: Denies headache ROS Other: All systems not noted in ROS Statement are negative. Past Medical History Past Medical History: Blood Disorder, Coronary Artery Disease (CAD), Dementia, Diabetes Mellitus, Eye Disorder, GERD/Reflux, Hearing Disorder / Deafness, Hyperlipidemia, Hypertension, Neurologic Disorder, Osteoarthritis (OA), Prostate Disorder, Renal Disease, Syncope Additional Past Medical History / Comment(s): IDDM type I with insulin pump, bilateral legs/feet/arms and hand neuropathy, chronic renal disease, difficulty swallowing, RLS, factor V, early dementia, BPH, bilateral tinnitis, R eye retinal bleeds x2, chronic low back pain with bilateral sciatica which is worse on the right side, bilateral shoulder and cervical pain, History of Any Multi-Drug Resistant Organisms: None Reported Past Surgical History: Adenoidectomy, Back Surgery, Heart Catheterization, Orthopedic Surgery, Tonsillectomy Additional Past Surgical History / Comment(s): Lumbar laminectomy, R knee cartildge surgery, bilateral carpal tunnel released, sen wrist dequevain surgery, R rotator cuff repair, L foot pins and plates, EGD, colonoscopy, R eye laser eye surgery for retinal bleeds, bilateral cataract removals/lens implants. Past Anesthesia/Blood Transfusion Reactions: Motion Sickness Past Psychological History: Depression Smoking Status: Former smoker Past Alcohol Use History: None Reported Past Drug Use History: None Reported - Past Family History Brother(s) Family Medical History: Blood Disorder, Deep Vein Thrombosis (DVT) Mother Additional Family Medical History / Comment(s): Mother had palsey Father Family Medical History: COPD, Myocardial Infarction (GA) Additional Family Medical History / Comment(s): Father of COPD/GA at the age of 72 yrs. General Exam - General Exam Comments Initial Comments: General: Appears in no acute distress. HEAD: Normal with no signs of head trauma. EYES: PERRLA, EOMI, conjunctiva normal, no discharge. Pupils are 2 mm and equal bilaterally. ENT: Hearing grossly intact, normal oropharynx. RESPIRATORY: Clear breath sounds bilaterally. No wheezes, rales, or rhonchi. C/V: Regular rate and rhythm. S1 and S2 auscultated, no edema, peripheral pulses 2+ and intact throughout ABD: Abd is soft, nontender, nondistended EXT: Normal range of motion, no obvious deformity SKIN: No rashes or lesions observed on exposed skin. NEURO: Alert and oriented x 4. Cranial nerves II-XII intact. No focal sensory or strength deficits. NIH of 0. GCS of 15. Limitations: no limitations Course Vital Signs 12/27/22 12/27/22 12/27/22 16:27 17:05 17:30 Temperature 98 F Pulse Rate 58 L 57 L Respiratory 20 22 Rate Blood Pressure 151/65 150/62 O2 Sat by Pulse 98 95 95 Oximetry 12/27/22 12/27/22 12/27/22 18:00 19:50 20:29 Temperature Pulse Rate 64 60 Respiratory 23 16 Rate Blood Pressure 166/60 216/90 205/83 O2 Sat by Pulse 95 99 Oximetry 12/27/22 21:04 Temperature 98.8 F Pulse Rate 90 Respiratory 16 Rate Blood Pressure O2 Sat by Pulse Oximetry Medical Decision Making - Medical Decision Making Was pt. sent in by a medical professional or institution (, PA, QUALITY ASSURANCE SUPERVISOR FINAL, urgent care, hospital, or retirement...) When possible be specific @ -No Did you speak to anyone other than the patient for history (EMS, parent, family, police, friend...)? What history was obtained from this source @ -Spoke with patient's was at bedside and assists with the patient's recent past medical history. Did you review nursing and triage notes (agree or disagree)? Why? @ -I reviewed and agree with nursing and triage notes Were old charts reviewed (outside hosp., previous admission, EMS record, old EKG, old radiological studies, urgent care reports/EKG's, retirement records)? Report findings @ -No old charts were reviewed Differential Diagnosis (chest pain, altered mental status, abdominal pain women, abdominal pain men, vaginal bleeding, weakness, fever, dyspnea, syncope, headache, dizziness, GI bleed, back pain, seizure, CVA, palpatations, mental health, musculoskeletal)? @ -Differential Altered Mental Status: Hypoglycemia, DKA, hypercapnia, ETOH, overdose, CO poisoning, trauma, myxedema coma, HTN encephalopathy, infection, encephalitis, psychosis, intercranial hemorrhage, hepatic encephalopathy, meningitis, CVA, this is not meant to be an all-inclusive list EKG interpreted by me (3pts min.). @ -As above X-rays interpreted by me (1pt min.). @ -Chest x-ray shows bilateral pleural effusions. CT interpreted by me (1pt min.). @ -CT brain reveals no obvious acute intracranial process. CT angiogram of the head and neck reveals no obvious acute intracranial process. U/S interpreted by me (1pt. min.). @ -None done What testing was considered but not performed or refused? (CT, X-rays, U/S, labs)? Why? @ -None What meds were considered but not given or refused? Why? @ -None Did you discuss the management of the patient with other professionals (professionals i.e. , PA, QUALITY ASSURANCE SUPERVISOR FINAL, lab, RT, psych nurse, social worker masters, j2ee application developer, teacher, staff electronic warfare officer, transplant case manager)? Give summary @ -Discussed with the admitting physician, Dr. Gibson who accepted the patient. Was smoking cessation discussed for >3mins.? @ -No Was critical care preformed (if so, how long)? @ -No Were there social determinants of health that impacted care today? How? (Homelessness, low income, unemployed, alcoholism, drug addiction, transporta tion, low edu. Level, literacy, decrease access to med. care, usp, rehab)? @ -No Was there de-escalation of care discussed even if they declined (Discuss DNR or withdrawal of care, Hospice)? DNR status @ -No What co-morbidities impacted this encounter? (DM, HTN, Smoking, COPD, CAD, Cancer, CVA, ARF, Chemo, Hep., AIDS, mental health diagnosis, sleep apnea, morbid obesity)? @ -None Was patient admitted / discharged? Hospital course, mention meds given and route, prescriptions, significant lab abnormalities, going to OR and other pertinent info. @ -Based on the patient's presentation and physical exam, I'm concerned for possible TIA for the patient and she seems to have had symptoms consistent with that. We will obtain workup. Patient and patient's were in agreement with this plan. Vital signs within acceptable limits. No current neurological defi cits. NIH is 0. Not a TPA candidate as risks far outweigh the benefits. Patient currently has no symptoms. EKG showed no signs of acute ischemia. Imaging unremarkable. Patient's labs reveal elevated BNP with pulmonary vascular congestion, no hypoxia on exam. No other acute complaints at this time. On reevaluation, patient remains unchanged. We will admit the patient for neurology evaluation as he has had symptoms each of the last 2 days. They were in agreement this plan. I spoke with the admitting physician, Dr. Dr. Gibson who accepted the patient. Neurology was consulted. Undiagnosed new problem with uncertain prognosis? @ -No Drug Therapy requiring intensive monitoring for toxicity (Heparin, Nitro, Insulin, Cardizem)? @ -No Were any procedures done? @ -No Diagnosis/symptom? @ -Confusion, concern for TIA Acute, or Chronic, or Acute on Chronic? @ -Acute Uncomplicated (without systemic symptoms) or Complicated (systemic symptoms)? @ -Complicated Side effects of treatment? @ -No Exacerbation, Progression, or Severe Exacerbation? @ -No Poses a threat to life or bodily function? How? (Chest pain, USA, GA, pneumonia, PE, COPD, DKA, ARF, appy, cholecystitis, CVA, Diverticulitis, Homicidal, Suicidal, threat to staff... and all critical care pts) @ -Possibly - Lab Data Result diagrams: 12/27/22 16:59 12/27/22 16:59 Lab Results 12/27/22 12/27/22 12/27/22 Range/Units 16:59 16:59 16:59 WBC 5.5 (3.8-10.6) k/uL RBC 4.02 L (4.30-5.90) m/uL Hgb 13.3 (13.0-17.5) gm/dL Hct 40.0 (39.0-53.0) % MCV 99.6 (80.0-100.0) fL MCH 33.1 (25.0-35.0) pg MCHC 33.2 (31.0-37.0) g/dL RDW 13.9 (11.5-15.5) % Plt Count 208 (150-450) k/uL MPV 8.7 Neutrophils % 59 % Lymphocytes % 30 % Monocytes % 7 % Eosinophils % 3 % Basophils % 0 % Neutrophils # 3.2 (1.3-7.7) k/uL Lymphocytes # 1.7 (1.0-4.8) k/uL Monocytes # 0.4 (0-1.0) k/uL Eosinophils # 0.1 (0-0.7) k/uL Basophils # 0.0 (0-0.2) k/uL PT 11.4 (9.0-12.0) sec INR 1.1 (<1.2) APTT 22.8 (22.0-30.0) sec Sodium 139 (137-145) mmol/L Potassium 4.6 (3.5-5.1) mmol/L Chloride 108 H (98-107) mmol/L Carbon Dioxide 24 (22-30) mmol/L Anion Gap 7 mmol/L BUN 13 (9-20) mg/dL Creatinine 0.74 (0.66-1.25) mg/dL Est GFR (CKD-EPI)AfAm >90 (>60 ml/min/1.73 sqM) Est GFR (CKD-EPI)NonAf >90 (>60 ml/min/1.73 sqM) Glucose 114 H (74-99) mg/dL Calcium 8.3 L (8.4-10.2) mg/dL Total Bilirubin 1.4 H (0.2-1.3) mg/dL AST 92 H (17-59) U/L ALT 60 H (4-49) U/L Alkaline Phosphatase 87 (38-126) U/L Creatine Kinase 95 (55-170) U/L NT-Pro-B Natriuret Pep pg/mL Total Protein 7.2 (6.3-8.2) g/dL Albumin 3.9 (3.5-5.0) g/dL Urine Color Urine Appearance (Clear) Urine pH (5.0-8.0) Ur Specific [place] (1.001-1.035) Urine Protein (Negative) Urine Glucose (UA) (Negative) Urine Ketones (Negative) Urine Blood (Negative) Urine Nitrite (Negative) Urine Bilirubin (Negative) Urine Urobilinogen (<2.0) mg/dL Ur Leukocyte Esterase (Negative) Influenza Type A (PCR) (Not Detectd) Influenza Type B (PCR) (Not Detectd) RSV (PCR) (Not Detectd) SARS-CoV-2 (PCR) (Not Detectd) 12/27/22 12/27/22 12/27/22 Range/Units 16:59 18:14 19:03 WBC (3.8-10.6) k/uL RBC (4.30-5.90) m/uL Hgb (13.0-17.5) gm/dL Hct (39.0-53.0) % MCV (80.0-100.0) fL MCH (25.0-35.0) pg MCHC (31.0-37.0) g/dL RDW (11.5-15.5) % Plt Count (150-450) k/uL MPV Neutrophils % % Lymphocytes % % Monocytes % % Eosinophils % % Basophils % % Neutrophils # (1.3-7.7) k/uL Lymphocytes # (1.0-4.8) k/uL Monocytes # (0-1.0) k/uL Eosinophils # (0-0.7) k/uL Basophils # (0-0.2) k/uL PT (9.0-12.0) sec INR (<1.2) APTT (22.0-30.0) sec Sodium (137-145) mmol/L Potassium (3.5-5.1) mmol/L Chloride (98-107) mmol/L Carbon Dioxide (22-30) mmol/L Anion Gap mmol/L BUN (9-20) mg/dL Creatinine (0.66-1.25) mg/dL Est GFR (CKD-EPI)AfAm (>60 ml/min/1.73 sqM) Est GFR (CKD-EPI)NonAf (>60 ml/min/1.73 sqM) Glucose (74-99) mg/dL Calcium (8.4-10.2) mg/dL Total Bilirubin (0.2-1.3) mg/dL AST (17-59) U/L ALT (4-49) U/L Alkaline Phosphatase (38-126) U/L Creatine Kinase (55-170) U/L NT-Pro-B Natriuret Pep 1230 pg/mL Total Protein (6.3-8.2) g/dL Albumin (3.5-5.0) g/dL Urine Color Yellow Urine Appearance Clear (Clear) Urine pH 6.5 (5.0-8.0) Ur Specific [place] 1.027 (1.001-1.035) Urine Protein Trace H (Negative) Urine Glucose (UA) Trace H (Negative) Urine Ketones Negative (Negative) Urine Blood Negative (Negative) Urine Nitrite Negative (Negative) Urine Bilirubin Negative (Negative) Urine Urobilinogen 6.0 (<2.0) mg/dL Ur Leukocyte Esterase Negative (Negative) Influenza Type A (PCR) Not Detected (Not Detectd) Influenza Type B (PCR) Not Detected (Not Detectd) RSV (PCR) Not Detected (Not Detectd) SARS-CoV-2 (PCR) Not Detected (Not Detectd) - EKG Data -: EKG Interpreted by Me EKG Comments: 12-lead Electrocardiogram Interpretation Note EKG was reviewed and interpreted by myself. 12-lead ECG performed at 1721 is interpreted by me as revealing normal sinus rhythm at a rate of 61 beats per minute. [place] is normal. [place] interval is 155 ms, QRS duration is 90 ms, QTc is 463 ms and slightly prolonged.. There were no ST or T wave abnormalities to suggest myocardial ischemia or injury. R wave progression across the precordium was satisfactory. By my interpretation this EKG is non-diagnostic for acute ischemia. Disposition Clinical Impression: Confusion Narrative: possible tia Disposition: ADMITTED IP TO THIS HOSP Condition: Stable Time of Disposition: 19:25
[2022-12-27 20:12] LABS: Appearance,Urine Clear (Clear); Bilirubin,Urine Negative (Negative); Blood,Urine Negative (Negative); Color,Urine Yellow; Glucose,Urine (UA) Trace (Negative); Ketones,Urine Negative (Negative); PH, Urine 6.5 (5.0-8.0); Protein,Urine Trace (Negative); Specific Gravity,Urine 1.027 (1.001-1.035)
[2022-12-27 20:13] LABS: Leukocyte Esterase,Urine Negative (Negative); Nitrite,Urine Negative (Negative)
[2022-12-27 21:29] LABS: Glucose,Whole Blood 111 mg/dL (70-110)
[2022-12-27] MEDS: TAMSULOSIN 0.4 MG CAP.ER.24H PO SCH (23:30)
[2022-12-27] MEDS: MEMANTINE 5 MG TAB PO SCH (23:30)
[2022-12-27] MEDS: ATORVASTATIN 40 MG TAB PO SCH (23:30)
[2022-12-27] MEDS: PANTOPRAZOLE 40 MG TABLET PO SCH (23:30)
[2022-12-27] MEDS: ACETAMINOPHEN TAB 500 MG TAB PO SCH (23:30)
[2022-12-28 03:49] LABS: Glucose,Whole Blood 71 mg/dL (70-110)
[2022-12-28] MEDS: PANTOPRAZOLE 40 MG TABLET PO SCH ×2 (05:35→17:07)
[2022-12-28] MEDS ORDERED: INSPUCOR MISCELLANE PRN (05:37)
[2022-12-28] MEDS ORDERED: INSULIN PUMP BASAL RATES 1 EACH MISC MISCELLANE PRN (05:37)
[2022-12-28] MEDS ORDERED: INSULIN ASPART (NovoLOG) 100 UNIT/ML VIAL SQ PRN (05:37)
[2022-12-28] MEDS: Insulin Aspart (For Pump) 100 UNIT/ML VIAL SQ-PUMP SCH ×2 (05:41→22:59)
[2022-12-28 05:46] LABS: Glucose,Whole Blood 112 mg/dL (70-110)
[2022-12-28] MEDS: ACETAMINOPHEN TAB 500 MG TAB PO SCH ×2 (09:29→20:36)
[2022-12-28] MEDS: FLUDROCORTISONE 0.1 MG TAB PO SCH (09:29)
[2022-12-28] MEDS: MEMANTINE 5 MG TAB PO SCH ×2 (09:30→20:37)
[2022-12-28] MEDS: FINASTERIDE 5 MG TAB PO SCH (09:30)
[2022-12-28] MEDS: ASPIRIN 81 MG PO SCH (09:30)
[2022-12-28] MEDS: DOCUSATE 100 MG CAP PO SCH (09:30)
[2022-12-28 09:38] LABS: Glucose,Whole Blood 91 mg/dL (70-110)
[2022-12-28] MEDS: INSULIN PUMP MEAL BOLUS 1 UNIT MISC MISCELLANE SCH ×4 (09:38→20:31)
[2022-12-28 11:43] LABS: Glucose,Whole Blood 93 mg/dL (70-110)
[2022-12-28] MEDS: CLOPIDOGREL 75 MG TAB PO SCH (12:05)
[2022-12-28] MEDS: hydrALAZINE HCL 20 MG/ML 1 ML VIAL IVP PRN ×2 (12:05→18:32)
--- NOTE | 2022-12-28 12:19 | P.CNNES ---
History of Present Illness Consult date: 12/28/22 Requesting physician: Arsen Olvera Reason for Consult: possible tia, confusion History of Present Illness: Patient is a 72-year-old right-handed male with history of type 1 diabetes came to the hospital yesterday at 4:16 PM for stroke/TIA. Patient was providing somewhat slightly different history than the patient's . As per patient's , he woke up yesterday at 9 AM and was complaining of numbness of the right hand. Otherwise he was speaking well. At around 2 PM there was sitting on the porch when he suddenly started mumbling, could understand, couldn't make words out. It was all slurred. Patient tells me that he was confused, could not make sense at that time. She did not notice any facial droop or any problem with the vision. She was concerned if patient was having a stroke, therefore he was brought to the hospital. Overall this speech difficulty lasted for 1-1/2 hours and resolved. The right hand numbness lasted almost all day. He did check his blood sugar and it was not low. Patient's mentions that the day before arrival to the hospital, on she notices that his side of the mouth was crooked, droopy, that lasted for an hour. There was no slurred speech with it. Patient however told me that his right side of the tongue was numb that lasted for 10 minutes. That day he was very sick with upper respiratory infection, therefore she ignored it. Patient at this time mentions that he gets right hand numbness off and on about 2 or 3 times a month, sometimes on waking up, lasting for about 15-30 minutes. Patient's was not aware of this intermittent right hand numbness except what he experienced yesterday as mentioned above. Patient claims he has history of bilateral carpal tunnel release in the past. Vital signs on arrival blood pressure 151/65, pulse rate 58, temperature 98.0. Blood test shows normal CBC PT/PTT, normal chem 7, AST is mildly elevated 92, ALT 60, CK is normal, UA is negative, influenza, RSV and coronal virus PCR negative. CT head showed no acute intracranial process. Nonspecific white matter changes likely secondary to chronic small vessel ischemic disease. EKG shows sinus rhythm. It appears patient was evaluated in the ED in the ED staff felt it was a TIA, and patient's NIH stroke scale was 0. Not a TPA candidate. Patient has no symptoms in the ER. Patient has a history of insulin-dependent diabetes for 50 years. He has smoked 1 pack per day for 20 years and quit in 1987. He drank heavily for about 10 years until he quit drinking at age 22 when he developed diabetes. Patient does take aspirin 81 mg daily. 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 He had to quit working. He was doing passing out for about 3-4 years and was better for a couple years, but in the last 1-2 months, he has started passing out again. In the last 1-2 months he had to call EMS four times. Patient does take Florinef it appears. Patient says that all these syncopal spells occurs, when he is walking, and would pass out lasting for a few seconds. He does get presyncopal symptoms of lightheaded, dizzy for a very brief moments before he passes out. Denies any history of seizures. Review of Systems Constitutional: Denies chills, Denies fever Eyes: denies blurred vision (Wears glasses.), denies diplopia, denies pain Ears: bilateral: decreased hearing, deny: ear discharge, earache Ears, nose, mouth and throat: Denies headache, Denies sore throat Cardiovascular: Reports shortness of breath, Denies chest pain Respiratory: Denies cough, Denies excessive sputum (Had 2 days ago with upper respiratory infection, not anymore) Gastrointestinal: Denies abdominal pain, Denies diarrhea, Denies nausea, Denies vomiting Genitourinary: Reports incontinence (Sometimes lot, sometimes a little.), Reports urinary frequency Musculoskeletal: Reports low back pain, Reports neck pain, Denies myalgias Integumentary: Denies pruritus, Denies rash Neurological: Reports as per HPI Psychiatric: Reports anxiety, Reports depression Endocrine: Reports fatigue, Denies weight change Hematologic/Lymphatic: Reports easy bleeding, Reports easy bruising Past Medical History Past Medical History: Blood Disorder, Coronary Artery Disease (CAD), Dementia, Diabetes Mellitus, Eye Disorder, GERD/Reflux, Hearing Disorder / Deafness, Hyperlipidemia, Hypertension, Neurologic Disorder, Osteoarthritis (OA), Prostate Disorder, Renal Disease, Syncope Additional Past Medical History / Comment(s): IDDM type I with insulin pump, bilateral legs/feet/arms and hand neuropathy, chronic renal disease, difficulty swallowing, RLS, factor V, early dementia, BPH, bilateral tinnitis, R eye retinal bleeds x2, chronic low back pain with bilateral sciatica which is worse on the right side, bilateral shoulder and cervical pain, History of Any Multi-Drug Resistant Organisms: None Reported Past Surgical History: Adenoidectomy, Back Surgery, Heart Catheterization, Orthopedic Surgery, Tonsillectomy Additional Past Surgical History / Comment(s): Lumbar laminectomy, R knee cartildge surgery, bilateral carpal tunnel released, sen wrist dequevain surgery, R rotator cuff repair, L foot pins and plates, EGD, colonoscopy, R eye laser eye surgery for retinal bleeds, bilateral cataract removals/lens implants. Past Anesthesia/Blood Transfusion Reactions: Motion Sickness Past Psychological History: Depression Smoking Status: Former smoker Past Alcohol Use History: None Reported Past Drug Use History: None Reported - Past Family History Brother(s) Family Medical History: Blood Disorder, Deep Vein Thrombosis (DVT) Mother Additional Family Medical History / Comment(s): Mother had palsey Father Family Medical History: COPD, Myocardial Infarction (DE) Additional Family Medical History / Comment(s): Father of COPD/DE at the age of 72 yrs. Medications and Allergies Home Medications Medication Instructions Recorded Confirmed Type Aspirin 81 mg PO DAILY 10/16/13 12/27/22 History Pantoprazole [Protonix] 40 mg PO BID 01/20/18 12/27/22 History rOPINIRole HCL [Requip] 0.5 mg PO HS 30 Days #30 tablet 05/09/18 12/27/22 Rx Tamsulosin [Flomax] 0.4 mg PO HS 11/09/18 12/27/22 History Cetirizine HCl [Zyrtec] 10 mg PO DAILY 08/21/22 12/27/22 History Citalopram Hydrobromide 40 mg PO DAILY 08/21/22 12/27/22 History [Citalopram HBr] Fludrocortisone Acetate 0.2 mg PO DAILY 08/21/22 12/27/22 History Docusate [Colace] 300 mg PO DAILY 10/09/22 12/27/22 History Insulin Aspart (For Pump) [NovoLOG 0.01 unit SQ-PUMP CONTINUOUS 10/09/22 12/27/22 History (For Pump)] Memantine [Namenda] 5 mg PO BID 10/09/22 12/27/22 History Acetaminophen [Tylenol Extra 1,000 mg PO BID 11/14/22 12/27/22 History Strength] Atorvastatin [Lipitor] 40 mg PO HS 11/14/22 12/27/22 History Finasteride [Proscar] 5 mg PO DAILY 12/27/22 12/27/22 History Allergies Allergy/AdvReac Type Severity Reaction Status Date / Time No Known Allergies Allergy Verified 12/27/22 20:15 Physical Examination - Vital Signs Vital Signs: Vital Signs Temp Pulse Pulse Resp BP BP Pulse Ox 12/28/22 08:00 97.7 F 53 L 18 170/65 95 12/28/22 04:00 54 L 18 153/69 97 12/27/22 23:32 58 L 16 152/70 95 12/27/22 21:25 98 F 64 18 200/69 96 12/27/22 21:04 98.8 F 90 16 12/27/22 20:29 205/83 12/27/22 19:50 60 16 216/90 99 12/27/22 18:00 64 23 166/60 95 12/27/22 17:30 57 L 22 150/62 95 12/27/22 17:05 95 12/27/22 16:27 98 F 58 L 20 151/65 98 Intake and Output 12/27/22 12/28/22 12/28/22 22:59 06:59 14:59 Intake Total 10 Output Total 400 275 Balance -400 -265 Intake: IV 10 Invasive Line 1 10 Output: Urine 400 275 Other: # Voids 1 Weight 127.006 kg Patient is an elderly male, very pleasant in no acute distress. Patient is alert awake oriented to time place and person. Patient believes it is January and the year is 2022. He states that he is in [facility] in [place] and knows name of the current president. Speech and language functions are normal. Patient can name and repeat very well. No aphasia or dysarthria. Attention, concentration and fund of knowledge is adequate. Detail cognitive function testing deferred. On cranial nerve examination, pupils are equal, round and reacting to light, visual wu are full on confrontation, with no neglect on double simultaneous stimulation. Extraocular muscles are intact with no nystagmus. Face is symmetric, tongue protrudes to the midline. Palatal elevation and sensation normal, hearing and shoulder shrug normal, facial sensation normal. On muscle strength testing, there is no pronator drift and the strength is normal in arms and legs distally and proximally. Deep tendon reflexes are symmetric 1 at the biceps, 1 brachioradialis, 1+ at the knees, 0 ankles and plantars downgoing. Sensory to touch is equal with no neglect on double simultaneous stimulation. Cerebellar function showed no ataxia for [id number] testing. No dysdiadochokinesia. No ataxia for [id number] testing on either side. Tone and bulk of muscles normal. Gait deferred.. On general examination, there is no carotid bruit or murmur, S1-S2 audible. Chest is clear on consultation. Abdomen is soft nontender. No organomegaly, bowel sounds present. Peripheral pulses are present. Patient does have moderate peripheral edema. Results - Laboratory Findings CBC and BMP: 12/29/22 10:19 12/29/22 10:19 Abnormal Lab Findings: Abnormal Labs 12/27/22 12/27/22 12/27/22 16:59 16:59 19:03 RBC 4.02 L Chloride 108 H Glucose 114 H POC Glucose (mg/dL) Calcium 8.3 L Total Bilirubin 1.4 H AST 92 H ALT 60 H Urine Protein Trace H Urine Glucose (UA) Trace H 12/27/22 12/28/22 21:28 05:45 RBC Chloride Glucose POC Glucose (mg/dL) 111 H 112 H Calcium Total Bilirubin AST ALT Urine Protein Urine Glucose (UA) Assessment and Plan Assessment: * Probable recurrent TIA. Patient has presented with expressive aphasia and right hand numbness, that lasted for 1-1/2 hours. The day prior, he had transient facial droop and right tongue numbness, that lasted for an hour. At present patient's NIH stroke scale is 0. * Insulin-dependent diabetes * Mild cognitive impairment * X tobacco use * Peripheral neuropathy * Syncopal episodes, likely orthostatic, rule out arrhythmia. Plan: * MRI of the brain without contrast, evaluate for acute CVA * 2-D echo performed recently 11/15/2022 was normal. Mildly increased left ventricular wall thickness. Left ventricular EF is 55%. Left atrium is mil dly increased in volume. Right Atrium not well visualized. * CTA head and neck showed: No evidence of dissection of the cervical internal carotid arteries or vertebral arteries or any evidence of significant stenosis of the carotid bifurcations. No evidence of intracranial high-grade stenosis or intracranial aneurysm. Moderate bilateral pleural effusion. * Fasting a.m. lipid panel with cholesterol 150, LDL 68.9, HDL 62 and triglycerides 91 on 10/02/2022. Continue Lipitor 40 mg daily. * Hemoglobin A1c 9.2 on 11/15/2022. Recommend optimize control of diabetes to target A1c < 7.0 * Patient has failed aspirin regimen. We will start Plavix 75 mg daily. Recommend continue dual antiplatelet medication for 21 days, then stop aspirin and continue Plavix. * Optimize control of blood pressure. * Close neuro checks. * Patient has recurrent syncopal spells. Suggest tilt table test. * Consider event monitor to rule out arrhythmia. * Telemetry monitoring rule out any arrhythmia * DVT prophylaxis: Heparin 5000 units subcu every 8 hours * Neurology will continue ot follow. Thank you for the consult.
[2022-12-28 14:40] LABS: Chol/HDL Ratio 2.18 Ratio; VLDL Calculation 12.08 mg/dL (5.00-40.00)
--- NOTE | 2022-12-28 14:44 | P.HPIM ---
History of Present Illness H&P Date: 12/28/22 Yury Brewer, is a 72-year-old male who presented to [facility] emergency room with a chief complaint of slurred speech and facial drooping. Patient had an episode of slurred speech that lasted 1-2 hours at the time of admission. Apparently patient also had similar episode one day prior to admission, that also resolved within 1-2 hours. He was evaluated in the emergency room vital examination on presentation revealed a temperature of 98 pulse 58 respiration 20 blood pressure 151/65 pulse ox 98% on room air Laboratory data reveals a white blood count of 5.5 hemoglobin 13.3 platelet count 208 sodium 139 potassium 4.6 chloride 108 CO2 24 BUN 13 creatinine 0.74 AST 92 a LT 60 alkaline phosphatase 87 Testing in the emergency room revealed cardiac prominence with pleural effusions on the lateral view, computed tomography scan of the brain without contrast done in the emergency room revealed no acute intracranial process, there was nonspecific white matter changes likely secondary to chronic small of his ischemic disease. CT angiogram of the head and neck revealed no evidence of dissection of the cervical internal carotid arteries or vertebral arteries or any evidence of significant stenosis of the carotid bifurcations, no evidence of intracranial high-grade stenosis or intracranial aneurysm. Patient was admitted to medical floor for further evaluation and treatment Past Medical History Past Medical History: Blood Disorder, Coronary Artery Disease (CAD), Dementia, Diabetes Mellitus, Eye Disorder, GERD/Reflux, Hearing Disorder / Deafness, Hyperlipidemia, Hypertension, Neurologic Disorder, Osteoarthritis (OA), Prostate Disorder, Renal Disease, Syncope Additional Past Medical History / Comment(s): IDDM type I with insulin pump, bilateral legs/feet/arms and hand neuropathy, chronic renal disease, difficulty swallowing, RLS, factor V, early dementia, BPH, bilateral tinnitis, R eye retinal bleeds x2, chronic low back pain with bilateral sciatica which is worse on the right side, bilateral shoulder and cervical pain, History of Any Multi-Drug Resistant Organisms: None Reported Past Surgical History: Adenoidectomy, Back Surgery, Heart Catheterization, Orthopedic Surgery, Tonsillectomy Additional Past Surgical History / Comment(s): Lumbar laminectomy, R knee cartildge surgery, bilateral carpal tunnel released, sen wrist dequevain surgery, R rotator cuff repair, L foot pins and plates, EGD, colonoscopy, R eye laser eye surgery for retinal bleeds, bilateral cataract removals/lens implants. Past Anesthesia/Blood Transfusion Reactions: Motion Sickness Past Psychological History: Depression Smoking Status: Former smoker Past Alcohol Use History: None Reported Past Drug Use History: None Reported - Past Family History Brother(s) Family Medical History: Blood Disorder, Deep Vein Thrombosis (DVT) Mother Additional Family Medical History / Comment(s): Mother had palsey Father Family Medical History: COPD, Myocardial Infarction (CT) Additional Family Medical History / Comment(s): Father of COPD/CT at the age of 72 yrs. Medications and Allergies Home Medications Medication Instructions Recorded Confirmed Type Aspirin 81 mg PO DAILY 10/16/13 12/27/22 History Pantoprazole [Protonix] 40 mg PO BID 01/20/18 12/27/22 History rOPINIRole HCL [Requip] 0.5 mg PO HS 30 Days #30 tablet 05/09/18 12/27/22 Rx Tamsulosin [Flomax] 0.4 mg PO HS 11/09/18 12/27/22 History Cetirizine HCl [Zyrtec] 10 mg PO DAILY 08/21/22 12/27/22 History Citalopram Hydrobromide 40 mg PO DAILY 08/21/22 12/27/22 History [Citalopram HBr] Fludrocortisone Acetate 0.2 mg PO DAILY 08/21/22 12/27/22 History Docusate [Colace] 300 mg PO DAILY 10/09/22 12/27/22 History Insulin Aspart (For Pump) [NovoLOG 0.01 unit SQ-PUMP CONTINUOUS 10/09/22 12/27/22 History (For Pump)] Memantine [Namenda] 5 mg PO BID 10/09/22 12/27/22 History Acetaminophen [Tylenol Extra 1,000 mg PO BID 11/14/22 12/27/22 History Strength] Atorvastatin [Lipitor] 40 mg PO HS 11/14/22 12/27/22 History Finasteride [Proscar] 5 mg PO DAILY 12/27/22 12/27/22 History Allergies Allergy/AdvReac Type Severity Reaction Status Date / Time No Known Allergies Allergy Verified 12/27/22 20:15 Physical Exam Vitals: Vital Signs Temp Pulse Pulse Resp BP BP Pulse Ox 12/28/22 04:00 54 L 18 153/69 97 12/27/22 23:32 58 L 16 152/70 95 12/27/22 21:25 98 F 64 18 200/69 96 12/27/22 21:04 98.8 F 90 16 12/27/22 20:29 205/83 12/27/22 19:50 60 16 216/90 99 12/27/22 18:00 64 23 166/60 95 12/27/22 17:30 57 L 22 150/62 95 12/27/22 17:05 95 12/27/22 16:27 98 F 58 L 20 151/65 98 Intake and Output 12/27/22 12/28/22 12/28/22 22:59 06:59 14:59 Output Total 400 275 Balance -400 -275 Output: Urine 400 275 Other: # Voids 1 Weight 127.006 kg In general patient is alert and oriented x 3 in no distress HEENT head normocephalic and atraumatic Neck is supple no JVD no goiter no lymphadenopathy no carotid bruit Chest examination is clear to auscultation no crackles no wheezing Cardiac exam reveals regular heart sounds S1 and S2 no gallops no murmurs Abdomen is soft nontender no organomegaly with normal bowel sounds Extremity exam reveals no edema no cyanosis or clubbing Neurological examination reveals no gross focal deficits Results CBC & Chem 7: 12/27/22 16:59 12/27/22 16:59 Labs: Abnormal Lab Results - Last 24 Hours (Table) 12/27/22 12/27/22 12/27/22 Range/Units 16:59 16:59 19:03 RBC 4.02 L (4.30-5.90) m/uL Chloride 108 H (98-107) mmol/L Glucose 114 H (74-99) mg/dL POC Glucose (mg/dL) (70-110) mg/dL Calcium 8.3 L (8.4-10.2) mg/dL Total Bilirubin 1.4 H (0.2-1.3) mg/dL AST 92 H (17-59) U/L ALT 60 H (4-49) U/L Urine Protein Trace H (Negative) Urine Glucose (UA) Trace H (Negative) 12/27/22 12/28/22 Range/Units 21:28 05:45 RBC (4.30-5.90) m/uL Chloride (98-107) mmol/L Glucose (74-99) mg/dL POC Glucose (mg/dL) 111 H 112 H (70-110) mg/dL Calcium (8.4-10.2) mg/dL Total Bilirubin (0.2-1.3) mg/dL AST (17-59) U/L ALT (4-49) U/L Urine Protein (Negative) Urine Glucose (UA) (Negative) Thrombosis Risk Factor Assmnt - Choose All That Apply Any of the Below Risk Factors Present?: Yes Each Risk Factor Represents 2 Points: Age 61-74 years Thrombosis Risk Factor Assessment Total Risk Factor Score: 2 Thrombosis Risk Factor Assessment Level: Low Risk Assessment and Plan Plan: Recurrent TIA with facial drooping and slurred speech Underlying history of insulin-dependent diabetes mellitus maintained on insulin pump Underlying history of asthma Underlying history of hypertension Underlying history of hyperlipidemia Underlying history of benign prostatic hypertrophy Underlying history of gastroesophageal reflux disease Underlying history of peripheral neuropathy History of dizziness and lightheadedness with possible autonomic dysfunction Underlying history of dementia Evidence of oral candidiasis At this time patient is admitted to telemetry floor Home medications reviewed and reordered MRI of the brain requested Neurology consultation and cardiology consultation requested For DVT prophylaxis subcu Lovenox Prognosis is guarded will follow closely
[2022-12-28 16:44] LABS: Glucose,Whole Blood 144 mg/dL (70-110)
[2022-12-28] MEDS: NYSTATIN 100,000 UNIT/ML SUSP 500,000 UNIT/5 ML CUP PO SCH ×3 (17:07→22:59)
[2022-12-28] MEDS: ENOXAPARIN 40 MG/0.4 ML SYRINGE SQ SCH (17:07)
[2022-12-28 20:04] LABS: Glucose,Whole Blood 124 mg/dL (70-110)
[2022-12-28] MEDS: ATORVASTATIN 40 MG TAB PO SCH (20:37)
[2022-12-28] MEDS: TAMSULOSIN 0.4 MG CAP.ER.24H PO SCH (20:37)
[2022-12-29 02:02] LABS: Glucose,Whole Blood 161 mg/dL (70-110)
[2022-12-29] MEDS: hydrALAZINE HCL 20 MG/ML 1 ML VIAL IVP PRN ×3 (03:32→23:54)
[2022-12-29 06:03] LABS: Glucose,Whole Blood 136 mg/dL (70-110)
[2022-12-29] MEDS: PANTOPRAZOLE 40 MG TABLET PO SCH ×2 (06:24→18:00)
[2022-12-29] MEDS: ENOXAPARIN 40 MG/0.4 ML SYRINGE SQ SCH (07:44)
[2022-12-29] MEDS: NYSTATIN 100,000 UNIT/ML SUSP 500,000 UNIT/5 ML CUP PO SCH ×4 (07:44→23:52)
[2022-12-29] MEDS: FINASTERIDE 5 MG TAB PO SCH (07:44)
[2022-12-29] MEDS: ASPIRIN 81 MG PO SCH (07:44)
[2022-12-29] MEDS: ACETAMINOPHEN TAB 500 MG TAB PO SCH ×2 (07:44→20:37)
[2022-12-29] MEDS: FLUDROCORTISONE 0.1 MG TAB PO SCH (07:45)
[2022-12-29] MEDS: MEMANTINE 5 MG TAB PO SCH ×2 (07:45→20:38)
[2022-12-29] MEDS: CLOPIDOGREL 75 MG TAB PO SCH (07:45)
[2022-12-29] MEDS: DOCUSATE 100 MG CAP PO SCH (07:46)
[2022-12-29] MEDS: INSULIN PUMP MEAL BOLUS 1 UNIT MISC MISCELLANE SCH ×4 (07:53→20:44)
[2022-12-29] MEDS: lisinopriL 10 MG TAB PO SCH (09:52)
--- NOTE | 2022-12-29 10:48 | P.CRDCN ---
History of Present Illness History of present illness: HISTORY OF PRESENT ILLNESS: This is a 72-year-old male with a past medical history significant for moderate noncritical coronary artery disease, hypertension, hyperlipidemia, diabetes, and peripheral arterial disease. Patient follows in the office with Dr. Bhardwaj but was recently evaluated in the office by Dr. Petit secondary to PAD.. We have been asked to see the patient in consultation for recurrent TIAs. Patient examined at the bedside. Patient states he presented to the hospital for chief complaint of slurred speech and right-sided numbness. Patient states his symptoms have since resolved. He denies a previous history of TIA or CVA. Patient underwent CT of the brain which was negative for acute process. He underwent CTA which did not reveal any significant stenosis of intracranial arteries. He is scheduled to undergo MRI of the brain tomorrow. Telemetry reveals sinus mechanism. No evidence of atrial fibrillation has been noted. The patient does report having occasional palpitations at home. * EKG reveals sinus mechanism with no signs of acute ischemia * Chest xray cardiac prominence with pleural effusions on lateral view * Current home cardiac medications include aspirin 81 mg daily and Lipitor 40 mg at night * Most recent echocardiogram obtained in October 2022 revealed ejection fraction 55% trace MR * Cardiac catheterization history: March 2018 revealing moderate noncritical disease in all 3 vessels. No gradient across the aortic valve. Normal filling pressures. REVIEW OF SYSTEMS: At the time of my exam: CONSTITUTIONAL: Denies fever or chills. HEENT: Denies blurred vision, vision changes, or eye pain. Denies hemoptysis CARDIOVASCULAR: Denies chest pain. Denies orthopnea. Denies PND. Denies palpitations RESPIRATORY: Denies shortness of breath. GASTROINTESTINAL: Denies abdominal pain. Denies nausea or vomiting. HEMATOLOGIC: Denies bleeding disorders. GENITOURINARY: Denies any blood in urine. SKIN: Denies pruitis. Denies rash. PHYSICAL EXAM: VITAL SIGNS: Reviewed. GENERAL: Well-developed in no acute distress. HEENT: Head is normocephalic. Pupils are equal, round. Sclerae anicteric. Mucous membranes of the mouth are moist. Neck supple. No JVD or thyromegaly LUNGS: Respirations even and unlabored. Lungs essentially clear to auscultation bilaterally. HEART: Regular rate and rhythm. S1 and S2 heard. ABDOMEN: Soft. Nondistended. Nontender. EXTREMITIES: Normal range of motion. No clubbing or cyanosis. Peripheral pulses intact. No lower extremity edema NEUROLOGIC: Awake and alert. Oriented x 3. ASSESSMENT: Slurred speech and right-sided numbness, possible TIA Moderate noncritical coronary artery disease, per cardiac catheterization in 2018 Hypertension Hyperlipidemia Diabetes Peripheral arterial disease PLAN: No need to repeat echocardiogram as this was performed in October 2022 Continue telemetry monitoring to assess for any arrhythmias Patient scheduled for MRI of the brain tomorrow Will consider CARLOS pending MRI results Consider event monitor at the time of discharge Further recommendations pending patient's course Nurse practitioner note has been reviewed by physician. Signing provider agrees with the documented findings, assessment, and plan of care. Past Medical History Past Medical History: Blood Disorder, Coronary Artery Disease (CAD), Dementia, Diabetes Mellitus, Eye Disorder, GERD/Reflux, Hearing Disorder / Deafness, Hyperlipidemia, Hypertension, Neurologic Disorder, Osteoarthritis (OA), Prostate Disorder, Renal Disease, Syncope Additional Past Medical History / Comment(s): IDDM type I with insulin pump, bilateral legs/feet/arms and hand neuropathy, chronic renal disease, difficulty swallowing, RLS, factor V, early dementia, BPH, bilateral tinnitis, R eye retinal bleeds x2, chronic low back pain with bilateral sciatica which is worse on the right side, bilateral shoulder and cervical pain, History of Any Multi-Drug Resistant Organisms: None Reported Past Surgical History: Adenoidectomy, Back Surgery, Heart Catheterization, Orth opedic Surgery, Tonsillectomy Additional Past Surgical History / Comment(s): Lumbar laminectomy, R knee cartildge surgery, bilateral carpal tunnel released, sen wrist dequevain surgery, R rotator cuff repair, L foot pins and plates, EGD, colonoscopy, R eye laser eye surgery for retinal bleeds, bilateral cataract removals/lens implants. Past Anesthesia/Blood Transfusion Reactions: Motion Sickness Past Psychological History: Depression Smoking Status: Former smoker Past Alcohol Use History: None Reported Past Drug Use History: None Reported - Past Family History Brother(s) Family Medical History: Blood Disorder, Deep Vein Thrombosis (DVT) Mother Additional Family Medical History / Comment(s): Mother had palsey Father Family Medical History: COPD, Myocardial Infarction (ME) Additional Family Medical History / Comment(s): Father of COPD/ME at the age of 72 yrs. Medications and Allergies Home Medications Medication Instructions Recorded Confirmed Type Aspirin 81 mg PO DAILY 10/16/13 12/27/22 History Pantoprazole [Protonix] 40 mg PO BID 01/20/18 12/27/22 History rOPINIRole HCL [Requip] 0.5 mg PO HS 30 Days #30 tablet 05/09/18 12/27/22 Rx Tamsulosin [Flomax] 0.4 mg PO HS 11/09/18 12/27/22 History Cetirizine HCl [Zyrtec] 10 mg PO DAILY 08/21/22 12/27/22 History Citalopram Hydrobromide 40 mg PO DAILY 08/21/22 12/27/22 History [Citalopram HBr] Fludrocortisone Acetate 0.2 mg PO DAILY 08/21/22 12/27/22 History Docusate [Colace] 300 mg PO DAILY 10/09/22 12/27/22 History Insulin Aspart (For Pump) [NovoLOG 0.01 unit SQ-PUMP CONTINUOUS 10/09/22 12/27/22 History (For Pump)] Memantine [Namenda] 5 mg PO BID 10/09/22 12/27/22 History Acetaminophen [Tylenol Extra 1,000 mg PO BID 11/14/22 12/27/22 History Strength] Atorvastatin [Lipitor] 40 mg PO HS 11/14/22 12/27/22 History Finasteride [Proscar] 5 mg PO DAILY 12/27/22 12/27/22 History Allergies Allergy/AdvReac Type Severity Reaction Status Date / Time No Known Allergies Allergy Verified 12/27/22 20:15 Physical Exam Vitals: Vital Signs Temp Pulse Resp BP Pulse Ox 12/29/22 07:33 98.1 F 67 18 150/77 96 12/29/22 06:25 143/67 12/29/22 03:54 76 16 187/96 98 12/29/22 01:13 18 12/28/22 23:00 72 18 178/66 97 12/28/22 20:00 69 18 153/74 95 12/28/22 19:00 137/68 12/28/22 17:05 97.8 F 68 18 170/72 95 12/28/22 12:00 62 16 188/77 96 Intake and Output 12/28/22 12/29/22 12/29/22 22:59 06:59 14:59 Intake Total 480 250 Output Total 775 475 250 Balance -295 -475 0 Intake: IV 10 Invasive Line 1 10 Oral 480 240 Output: Urine 775 475 250 Other: Voiding Method Urinal Urinal Urinal # Bowel Movements 1 Results 12/27/22 16:59 12/27/22 16:59 Lipids 12/28/22 Range/Units 08:06 Triglycerides 60.40 (0.00-149.00) mg/dL Cholesterol 126.00 (0.00-200.00) mg/dL HDL Cholesterol 57.90 (40.00-60.00) mg/dL Cholesterol/HDL Ratio 2.18 Ratio Current Medications Generic Name Dose Route Start Last Admin Trade Name Freq PRN Reason Stop Dose Admin Acetaminophen 1,000 mg 12/27/22 22:45 12/29/22 07:44 Acetaminophen Tab 500 Mg Tab PO 1,000 mg BID MILLY Administration Aspirin 81 mg 12/28/22 09:00 12/29/22 07:44 Aspirin 81 Mg PO 81 mg DAILY MILLY Administration Atorvastatin Calcium 40 mg 12/27/22 22:45 12/28/22 20:37 Atorvastatin 40 Mg Tab PO 40 mg HS IMLLY Administration Clopidogrel Bisulfate 75 mg 12/28/22 12:00 12/29/22 07:45 Clopidogrel 75 Mg Tab PO 75 mg DAILY MILLY Administration Docusate Sodium 300 mg 12/28/22 09:00 12/29/22 07:46 Docusate 100 Mg Cap PO 300 mg DAILY MILLY Administration Enoxaparin Sodium 40 mg 12/28/22 14:45 12/29/22 07:44 Enoxaparin 40 Mg/0.4 Ml Syringe SQ 40 mg DAILY MILLY Administration Finasteride 5 mg 12/28/22 09:00 12/29/22 07:44 Finasteride 5 Mg Tab PO 5 mg DAILY MILLY Administration Fludrocortisone Acetate 0.2 mg 12/28/22 09:00 12/29/22 07:45 Fludrocortisone 0.1 Mg Tab PO 0.2 mg DAILY MILLY Administration Hydralazine HCl 10 mg 12/27/22 22:38 12/29/22 03:32 Hydralazine Hcl 20 Mg/Ml 1 Ml Vial IVP 10 mg Q6HR PRN Administration Blood Pressure - High Insulin Aspart 0.01 unit 12/27/22 22:45 12/28/22 22:59 Insulin Aspart (For Pump) 100 Unit/Ml Vial SQ-PUMP 0.01 unit CONTINUOUS MILLY Administration Insulin Aspart 0 unit 12/28/22 05:37 Insulin Aspart (Novolog) 100 Unit/Ml Vial SQ DAILY PRN Insulin Pump Replacement Lisinopril 10 mg 12/29/22 09:30 12/29/22 09:52 Lisinopril 10 Mg Tab PO 10 mg DAILY MILLY Administration Memantine 5 mg 12/27/22 22:45 12/29/22 07:45 Memantine 5 Mg Tab PO 5 mg BID MILLY Administration Miscellaneous Information 1 each 12/28/22 05:37 Insulin Pump Basal Rates 1 Each Misc MISCELLANE Q6HR PRN Blood Sugar - High Protocol Miscellaneous Information 0 unit 12/28/22 07:30 12/29/22 07:53 Insulin Pump Meal Bolus 1 Unit Misc MISCELLANE 6 unit ACHS MILLY Administration Protocol Miscellaneous Information 0 unit 12/28/22 05:37 Insulin Pump Correction Bolus 1 Unit Misc MISCELLANE ACHS PRN Blood Sugar - High Protocol Nystatin 500,000 unit 12/28/22 14:45 12/29/22 07:44 Nystatin 100,000 Unit/Ml Susp 500,000 Unit/5 Ml Cup PO 500,000 unit QID MILLY Administration Protocol Pantoprazole Sodium 40 mg 12/27/22 22:45 12/29/22 06:24 Pantoprazole 40 Mg Tablet PO 40 mg AC-BID MILLY Administration Tamsulosin HCl 0.4 mg 12/27/22 22:45 12/28/22 20:37 Tamsulosin 0.4 Mg Cap.Er.24h PO 0.4 mg HS MILLY Administration Intake and Output 12/28/22 12/29/22 12/29/22 22:59 06:59 14:59 Intake Total 480 250 Output Total 775 475 250 Balance -295 -475 0 Intake: IV 10 Invasive Line 1 10 Oral 480 240 Output: Urine 775 475 250 Other: Voiding Method Urinal Urinal Urinal # Bowel Movements 1 12/27/22 16:59 12/27/22 16:59
[2022-12-29 10:49] LABS: Basophils % (A) 0 %; Eosinophils # (A) 0.1 k/uL (0-0.7); Eosinophils % (A) 3 %; HCT 38.6 % (39.0-53.0); HGB 12.8 gm/dL (13.0-17.5); Lymphocytes # (A) 1.4 k/uL (1.0-4.8); Lymphocytes % (A) 27 %; MCH 33.2 pg (25.0-35.0); MCHC 33.3 g/dL (31.0-37.0); MCV 99.8 fL (80.0-100.0); Mean Platelet Volume 8.6; Monocytes # (A) 0.3 k/uL (0-1.0); Monocytes % (A) 6 %; Neutrophils # (A) 3.2 k/uL (1.3-7.7); Neutrophils % (A) 63 %; Platelet Count 208 k/uL (150-450); RBC 3.87 m/uL (4.30-5.90); RDW 13.9 % (11.5-15.5); WBC 5.2 k/uL (3.8-10.6)
[2022-12-29 11:02] LABS: ALT 56 U/L (4-49); AST 70 U/L (17-59); African American GFR (CKD) >90 (>60 ml/min/1.73 sqM); Albumin 3.1 g/dL (3.5-5.0); Alkaline Phosphatase 71 U/L (38-126); Anion Gap 7 mmol/L; Blood Urea Nitrogen 11 mg/dL (9-20); Calcium 8.4 mg/dL (8.4-10.2); Carbon Dioxide 22 mmol/L (22-30); Chloride 108 mmol/L (98-107); Glucose 177 mg/dL (74-99); Non-African American GFR(CKD) >90 (>60 ml/min/1.73 sqM); Potassium 3.2 mmol/L (3.5-5.1); Sodium 137 mmol/L (137-145); Total Bilirubin 0.8 mg/dL (0.2-1.3); Total Protein 5.9 g/dL (6.3-8.2)
[2022-12-29 11:41] LABS: Glucose,Whole Blood 174 mg/dL (70-110)
--- NOTE | 2022-12-29 13:54 | P.PN ---
Subjective Progress Note Date: 12/29/22 Yury Brewer, is a 72-year-old male who presented to [facility] emergency room with a chief complaint of slurred speech and facial drooping. Patient had an episode of slurred speech that lasted 1-2 hours at the time of admission. Apparently patient also had similar episode one day prior to admission, that also resolved within 1-2 hours. He was evaluated in the emergency room vital examination on presentation revealed a temperature of 98 pulse 58 respiration 20 blood pressure 151/65 pulse ox 98% on room air Laboratory data reveals a white blood count of 5.5 hemoglobin 13.3 platelet count 208 sodium 139 potassium 4.6 chloride 108 CO2 24 BUN 13 creatinine 0.74 AST 92 a LT 60 alkaline phosphatase 87 Testing in the emergency room revealed cardiac prominence with pleural effusions on the lateral view, computed tomography scan of the brain without contrast done in the emergency room revealed no acute intracranial process, there was nonspecific white matter changes likely secondary to chronic small of his ischemic disease. CT angiogram of the head and neck revealed no evidence of dissection of the cervical internal carotid arteries or vertebral arteries or any evidence of significant stenosis of the carotid bifurcations, no evidence of intracranial high-grade stenosis or intracranial aneurysm. Patient was admitted to medical floor for further evaluation and treatment On 12/29/2022 patient was seen and examined on the telemetry floor he is alert and oriented 3 in no apparent distress there is no fever or chills no headache or dizziness no chest pain no shortness of breath no cough no nausea or vomiting no abdominal pain no diarrhea and no urinary symptoms. There are no new episodes of speech abnormalities or facial drooping, patient still complaining of numbness in the right upper extremity, otherwise he denies any complaint. At this time awaiting MRI of the brain and further recommendation from neurology and cardiology. Objective - Vital Signs Vital signs: Vital Signs Temp 98.1 F 12/29/22 07:33 Pulse 67 12/29/22 07:33 Resp 18 12/29/22 07:33 BP 150/77 12/29/22 07:33 Pulse Ox 96 12/29/22 07:33 FiO2 Intake & Output 12/28/22 12/29/22 12/29/22 18:59 06:59 18:59 Intake Total 970 250 Output Total 500 1025 250 Balance 470 -1025 0 Intake: IV 10 10 Invasive Line 1 10 10 Oral 960 240 Output: Urine 500 1025 250 Other: Voiding Method Urinal Urinal # Bowel Movements 1 - Exam In general patient is alert and oriented x 3 in no distress HEENT head normocephalic and atraumatic Neck is supple no JVD no goiter no lymphadenopathy no carotid bruit Chest examination is clear to auscultation no crackles no wheezing Cardiac exam reveals regular heart sounds S1 and S2 no gallops no murmurs Abdomen is soft nontender no organomegaly with normal bowel sounds Extremity exam reveals no edema no cyanosis or clubbing Neurological examination reveals no gross focal deficits - Labs CBC & Chem 7: 12/29/22 10:19 12/29/22 10:19 Labs: Abnormal Lab Results - Last 24 Hours (Table) 12/28/22 12/28/22 12/29/22 Range/Units 16:42 20:02 02:00 POC Glucose (mg/dL) 144 H 124 H 161 H (70-110) mg/dL 12/29/22 Range/Units 06:00 POC Glucose (mg/dL) 136 H (70-110) mg/dL Assessment and Plan Plan: Recurrent TIA with facial drooping and slurred speech Underlying history of insulin-dependent diabetes mellitus maintained on insulin pump Underlying history of asthma Underlying history of hypertension Underlying history of hyperlipidemia Underlying history of benign prostatic hypertrophy Underlying history of gastroesophageal reflux disease Underlying history of peripheral neuropathy History of dizziness and lightheadedness with possible autonomic dysfunction Underlying history of dementia Evidence of oral candidiasis At this time patient is admitted to telemetry floor Home medications reviewed and reordered MRI of the brain requested Neurology consultation and cardiology consultation requested For DVT prophylaxis subcu Lovenox Prognosis is guarded will follow closely
[2022-12-29 15:35] LABS: Glucose,Whole Blood 229 mg/dL (70-110)
[2022-12-29] MEDS ORDERED: CLOPIDOGREL 75 MG TAB PO STA (15:43)
[2022-12-29 16:40] LABS: Glucose,Whole Blood 269 mg/dL (70-110)
[2022-12-29] MEDS: ATORVASTATIN 40 MG TAB PO SCH (20:38)
[2022-12-29] MEDS: TAMSULOSIN 0.4 MG CAP.ER.24H PO SCH (20:38)
[2022-12-29 20:40] LABS: Glucose,Whole Blood 307 mg/dL (70-110)
[2022-12-29] MEDS: Insulin Aspart (For Pump) 100 UNIT/ML VIAL SQ-PUMP SCH (22:24)
--- NOTE | 2022-12-30 00:35 | P.PN ---
Subjective Progress Note Date: 12/29/22 Patient was seen for a follow-up. Patient apparently had another episode of possible TIA. The nurse informed me that about 10 minutes ago, patient came out of the shower, did not feel well, like will get sick. Shortly thereafter patient had speech difficulty, not talking right, cannot make words, not making sense, but now seems to be getting better. Patient's blood pressure 111/57, blood sugar 224. Patient complains of numbness and tingling in the right hand in ulnar nerve distribution. Objective - Vital Signs Vital signs: Vital Signs Temp 97.9 F 12/29/22 12:09 Pulse 71 12/29/22 12:09 Resp 16 12/29/22 12:09 BP 163/68 12/29/22 12:09 Pulse Ox 97 12/29/22 12:09 FiO2 Intake & Output 12/28/22 12/29/22 12/29/22 18:59 06:59 18:59 Intake Total 970 368 Output Total 500 1025 450 Balance 470 -1025 -82 Intake: IV 10 10 Invasive Line 1 10 10 Oral 960 358 Output: Urine 500 1025 450 Other: Voiding Method Urinal Urinal Urinal # Bowel Movements 1 - Exam Patient's mental status, speech and language functions are normal. Patient can name and repeat very well. No obvious aphasia or dysarthria. Patient is fl uent. On cranial nerve examination pupils are equal, round and reactive to light, visual wu are full with no neglect on confrontation, extraocular muscles are intact. Face is symmetric. Tongue protrudes the midline. On muscle strength testing, there is no pronator drift and the strength is n ormal in arms and legs. Sensory touch is equal with no neglect on double simultaneous stimulation. No ataxia for [id number] or [id number] testing. - Labs CBC & Chem 7: 12/29/22 10:19 12/29/22 10:19 Labs: Abnormal Lab Results - Last 24 Hours (Table) 12/28/22 12/28/22 12/29/22 Range/Units 16:42 20:02 02:00 RBC (4.30-5.90) m/uL Hgb (13.0-17.5) gm/dL Hct (39.0-53.0) % Potassium (3.5-5.1) mmol/L Chloride (98-107) mmol/L Glucose (74-99) mg/dL POC Glucose (mg/dL) 144 H 124 H 161 H (70-110) mg/dL AST (17-59) U/L ALT (4-49) U/L Total Protein (6.3-8.2) g/dL Albumin (3.5-5.0) g/dL 12/29/22 12/29/22 12/29/22 Range/Units 06:00 10:19 10:19 RBC 3.87 L (4.30-5.90) m/uL Hgb 12.8 L (13.0-17.5) gm/dL Hct 38.6 L (39.0-53.0) % Potassium 3.2 L (3.5-5.1) mmol/L Chloride 108 H (98-107) mmol/L Glucose 177 H (74-99) mg/dL POC Glucose (mg/dL) 136 H (70-110) mg/dL AST 70 H (17-59) U/L ALT 56 H (4-49) U/L Total Protein 5.9 L (6.3-8.2) g/dL Albumin 3.1 L (3.5-5.0) g/dL 12/29/22 12/29/22 Range/Units 11:39 15:32 RBC (4.30-5.90) m/uL Hgb (13.0-17.5) gm/dL Hct (39.0-53.0) % Potassium (3.5-5.1) mmol/L Chloride (98-107) mmol/L Glucose (74-99) mg/dL POC Glucose (mg/dL) 174 H 229 H (70-110) mg/dL AST (17-59) U/L ALT (4-49) U/L Total Protein (6.3-8.2) g/dL Albumin (3.5-5.0) g/dL Assessment and Plan Assessment: * Probable recurrent TIA. Patient has presented with expressive aphasia and right hand numbness, that lasted for 1-1/2 hours. The day prior, he had transient facial droop and right tongue numbness, that lasted for an hour. * Patient just had another TIA 10 minutes ago and symptoms lasting for about 10- 15 minutes. Symptoms are completely resolved. At present patient's NIH stroke scale is 0. * Insulin-dependent diabetes * Mild cognitive impairment * X tobacco use * Peripheral neuropathy * Syncopal episodes, likely orthostatic, rule out arrhythmia. Plan: * Await MRI of the brain without contrast, evaluate for acute CVA * 2-D echo performed recently 11/15/2022 was normal. Mildly increased left ventricular wall thickness. Left ventricular EF is 55%. Left atrium is mildly increased in volume. Right Atrium not well visualized. * Recommend CARLOS to rule out embolic source. Cardiology on board. Patient was on aspirin, and Plavix has been initiated. With current TIA, we will give an extra loading dose of Plavix 75 mg. * CTA head and neck showed: No evidence of dissection of the cervical internal carotid arteries or vertebral arteries or any evidence of significant stenosis of the carotid bifurcations. No evidence of intracranial high-grade stenosis or intracranial aneurysm. Moderate bilateral pleural effusion. * If stroke/TIA workup is negative, then consider EEG. * Fasting a.m. lipid panel with cholesterol 150, LDL 68.9, HDL 62 and triglycerides 91 on 10/02/2022. Continue Lipitor 40 mg daily. * Hemoglobin A1c 9.2 on 11/15/2022. Recommend optimize control of diabetes to target A1c < 7.0 * Patient has failed aspirin regimen. We will start Plavix 75 mg daily. Recommend continue dual antiplatelet medication for 21 days, then stop aspirin and continue Plavix. * Optimize control of blood pressure. * Close neuro checks. * Patient has recurrent syncopal spells. Suggest tilt table test. * Consider event monitor to rule out arrhythmia. * Telemetry monitoring rule out any arrhythmia * DVT prophylaxis: Heparin 5000 units subcu every 8 hours * Dr. Harish Hoover to resume neurology service in the morning.
[2022-12-30 01:42] LABS: Glucose,Whole Blood 246 mg/dL (70-110)
[2022-12-30] MEDS: PANTOPRAZOLE 40 MG TABLET PO SCH ×2 (04:00→16:42)
[2022-12-30 05:40] LABS: Glucose,Whole Blood 208 mg/dL (70-110)
[2022-12-30] MEDS: ACETAMINOPHEN TAB 500 MG TAB PO SCH ×3 (06:37→21:51)
[2022-12-30] MEDS: INSULIN PUMP MEAL BOLUS 1 UNIT MISC MISCELLANE SCH ×3 (06:43→18:10)
[2022-12-30] MEDS: ENOXAPARIN 40 MG/0.4 ML SYRINGE SQ SCH (08:43)
[2022-12-30] MEDS: hydrALAZINE HCL 20 MG/ML 1 ML VIAL IVP PRN (08:44)
--- NOTE | 2022-12-30 10:52 | MR ---
EXAMINATION TYPE: MR brain wo con DATE OF EXAM: 12/30/2022 10:45 AM CLINICAL INDICATION:Male, 72 years old with history of Transient cerebral ischemia; Confusion, transi ent cerebral ischemia. COMPARISON: MR brain 12/28/2018, CT brain 12/27/2022. TECHNIQUE: Multi planar, multi sequence imaging was performed through the brain including: T1, T2, In version recovery, Diffusion weighted imaging, and gradient echo imaging. No gadolinium was given. FINDINGS: To cerebral atrophy with proportional dilation to the ventricular system. Findings not sign ificantly changed from prior. The maria-white junctions, ventricular system, and cisterns appear unrem arkable. Scattered foci of high T2 signal intensity are seen within the periventricular white matter . Midline structures show no abnormality. Diffusion-weighted imaging shows no evidence of restricted diffusion. The susceptibility weighted images do not reveal any evidence for micro-hemorrhage. The bone marrow signal is within normal limits. Paranasal sinuses and mastoid air cells: No significant paranasal sinus disease. Visualized orbits: Right aphakia. The left orbit is intact. IMPRESSION: 1. No evidence of intracranial mass or acute/subacute infarct. 2. Nonspecific white matter changes, likely secondary to small vessel ischemic disease.
[2022-12-30 11:57] LABS: Glucose,Whole Blood 257 mg/dL (70-110)
[2022-12-30] MEDS: FINASTERIDE 5 MG TAB PO SCH (13:42)
[2022-12-30] MEDS: MEMANTINE 5 MG TAB PO SCH ×2 (13:42→21:51)
[2022-12-30] MEDS: lisinopriL 10 MG TAB PO SCH (13:42)
[2022-12-30] MEDS: DOCUSATE 100 MG CAP PO SCH (13:42)
[2022-12-30] MEDS: FLUDROCORTISONE 0.1 MG TAB PO SCH (13:42)
[2022-12-30] MEDS: ASPIRIN 81 MG PO SCH (13:42)
[2022-12-30] MEDS: CLOPIDOGREL 75 MG TAB PO SCH (13:42)
[2022-12-30] MEDS: NYSTATIN 100,000 UNIT/ML SUSP 500,000 UNIT/5 ML CUP PO SCH ×4 (13:43→21:51)
--- NOTE | 2022-12-30 14:20 | P.PN ---
Subjective Progress Note Date: 12/30/22 HISTORY OF PRESENT ILLNESS: This is a 72-year-old male with a past medical history significant for moderate noncritical coronary artery disease, hypertension, hyperlipidemia, diabetes, and peripheral arterial disease. Patient follows in the office with Dr. Bhardwaj but was recently evaluated in the office by Dr. Petit secondary to PAD.. We have been asked to see the patient in consultation for recurrent TIAs. Patient examined at the bedside. Patient states he presented to the hospital for chief complaint of slurred speech and right-sided numbness. Patient states his symptoms have since resolved. He denies a previous history of TIA or CVA. Patient underwent CT of the brain which was negative for acute process. He underwent CTA which did not reveal any significant stenosis of intracranial arteries. He is scheduled to undergo MRI of the brain tomorrow. Telemetry reveals sinus mechanism. No evidence of atrial fibrillation has been noted. The patient does report having occasional palpitations at home. * EKG reveals sinus mechanism with no signs of acute ischemia * Chest xray cardiac prominence with pleural effusions on lateral view * Current home cardiac medications include aspirin 81 mg daily and Lipitor 40 mg at night * Most recent echocardiogram obtained in October 2022 revealed ejection fraction 55% trace MR * Cardiac catheterization history: March 2018 revealing moderate noncritical disease in all 3 vessels. No gradient across the aortic valve. Normal filling pressures. 12/30 MRI of the brain done today revealed no evidence of intracranial mass or acute subacute infarct. Nonspecific white matter changes likely secondary to small vessel ischemic disease. Patient states that he is still feeling like crap. He states he still having speech difficulty and not back to his normal. He states he has lightheadedness or dizziness on and off. Case reviewed with neurology an d we will proceed with CARLOS tomorrow. PHYSICAL EXAM: VITAL SIGNS: Reviewed. GENERAL: Well-developed in no acute distress. HEENT: Head is normocephalic. Pupils are equal, round. Sclerae anicteric. Mucous membranes of the mouth are moist. Neck supple. No JVD or thyromegaly LUNGS: Respirations even and unlabored. Lungs essentially clear to auscultation bilaterally. HEART: Regular rate and rhythm. S1 and S2 heard. EXTREMITIES: Normal range of motion. No clubbing or cyanosis. Peripheral pulses intact. No lower extremity edema NEUROLOGIC: Awake and alert. Oriented x 3. ASSESSMENT: Slurred speech and right-sided numbness, possible TIA Moderate noncritical coronary artery disease, per cardiac catheterization in 2018 Hypertension Hyperlipidemia Diabetes Peripheral arterial disease PLAN: No need to repeat echocardiogram as this was performed in October 2022 Continue telemetry monitoring to assess for any arrhythmias CARLOS will be scheduled tomorrow with Dr. Petit Consider event monitor at the time of discharge Further recommendations pending patient's course Nurse practitioner note has been reviewed by physician. Signing provider agrees with the documented findings, assessment, and plan of care. Objective - Vital Signs Vital signs: Vital Signs Temp 98.2 F 12/30/22 11:42 Pulse 87 12/30/22 11:42 Resp 20 12/30/22 11:42 BP 156/62 12/30/22 11:42 Pulse Ox 96 12/30/22 11:42 FiO2 Intake & Output 12/29/22 12/30/22 12/30/22 18:59 06:59 18:59 Intake Total 368 10 Output Total 450 150 Balance -82 -150 10 Intake: IV 10 10 Invasive Line 1 10 10 Oral 358 Output: Urine 450 150 Other: Voiding Method Urinal Urinal Urinal # Voids 1 0 - Labs CBC & Chem 7: 12/29/22 10:19 12/29/22 10:19 Labs: Abnormal Lab Results - Last 24 Hours (Table) 12/29/22 12/29/22 12/29/22 Range/Units 10:19 15:32 16:38 POC Glucose (mg/dL) 229 H 269 H (70-110) mg/dL Hemoglobin A1c 8.3 H (<=6.0) % 12/29/22 12/30/22 12/30/22 Range/Units 20:38 01:39 05:38 POC Glucose (mg/dL) 307 H 246 H 208 H (70-110) mg/dL Hemoglobin A1c (<=6.0) % 12/30/22 Range/Units 11:55 POC Glucose (mg/dL) 257 H (70-110) mg/dL Hemoglobin A1c (<=6.0) %
[2022-12-30 16:56] LABS: Glucose,Whole Blood 275 mg/dL (70-110)
--- NOTE | 2022-12-30 17:20 | P.PN ---
Subjective Progress Note Date: 12/30/22 Yury Brewer, is a 72-year-old male who presented to [facility] emergency room with a chief complaint of slurred speech and facial drooping. Patient had an episode of slurred speech that lasted 1-2 hours at the time of admission. Apparently patient also had similar episode one day prior to admission, that also resolved within 1-2 hours. He was evaluated in the emergency room vital examination on presentation revealed a temperature of 98 pulse 58 respiration 20 blood pressure 151/65 pulse ox 98% on room air Laboratory data reveals a white blood count of 5.5 hemoglobin 13.3 platelet count 208 sodium 139 potassium 4.6 chloride 108 CO2 24 BUN 13 creatinine 0.74 AST 92 a LT 60 alkaline phosphatase 87 Testing in the emergency room revealed cardiac prominence with pleural effusions on the lateral view, computed tomography scan of the brain without contrast done in the emergency room revealed no acute intracranial process, there was nonspecific white matter changes likely secondary to chronic small of his ischemic disease. CT angiogram of the head and neck revealed no evidence of dissection of the cervical internal carotid arteries or vertebral arteries or any evidence of significant stenosis of the carotid bifurcations, no evidence of intracranial high-grade stenosis or intracranial aneurysm. Patient was admitted to medical floor for further evaluation and treatment On 12/29/2022 patient was seen and examined on the telemetry floor he is alert and oriented 3 in no apparent distress there is no fever or chills no headache or dizziness no chest pain no shortness of breath no cough no nausea or vomiting no abdominal pain no diarrhea and no urinary symptoms. There are no new episodes of speech abnormalities or facial drooping, patient still complaining of numbness in the right upper extremity, otherwise he denies any complaint. At this time awaiting MRI of the brain and further recommendation from neurology and cardiology. On 12/30/2022 patient was seen and examined on the telemetry floor he is alert and oriented 3 in no apparent distress there is no fever or chills no headache or dizziness no chest pain no shortness of breath no cough no nausea or vomiting no abdominal pain no diarrhea and no urinary symptoms there are no new episodes of slurred speech or facial drooping. At this time cardiology and neurology input reviewed, will continue to follow awaiting further testing results possible discharge to home in the next 1-2 days. Objective - Vital Signs Vital signs: Vital Signs Temp 98.2 F 10/09/23 11:42 Pulse 87 12/30/22 11:42 Resp 20 12/30/22 11:42 BP 156/62 12/30/22 11:42 Pulse Ox 96 12/30/22 11:42 FiO2 Intake & Output 12/29/22 12/30/22 12/30/22 18:59 06:59 18:59 Intake Total 368 10 Output Total 450 150 Balance -82 -150 10 Intake: IV 10 10 Invasive Line 1 10 10 Oral 358 Output: Urine 450 150 Other: Voiding Method Urinal Urinal Urinal # Voids 1 0 - Exam In general patient is alert and oriented x 3 in no distress HEENT head normocephalic and atraumatic Neck is supple no JVD no goiter no lymphadenopathy no carotid bruit Chest examination is clear to auscultation no crackles no wheezing Cardiac exam reveals regular heart sounds S1 and S2 no gallops no murmurs Abdomen is soft nontender no organomegaly with normal bowel sounds Extremity exam reveals no edema no cyanosis or clubbing Neurological examination reveals no gross focal deficits - Labs CBC & Chem 7: 12/29/22 10:19 12/29/22 10:19 Labs: Abnormal Lab Results - Last 24 Hours (Table) 12/29/22 12/29/22 12/29/22 Range/Units 10:19 15:32 16:38 POC Glucose (mg/dL) 229 H 269 H (70-110) mg/dL Hemoglobin A1c 8.3 H (<=6.0) % 12/29/22 12/30/22 12/30/22 Range/Units 20:38 01:39 05:38 POC Glucose (mg/dL) 307 H 246 H 208 H (70-110) mg/dL Hemoglobin A1c (<=6.0) % 12/30/22 Range/Units 11:55 POC Glucose (mg/dL) 257 H (70-110) mg/dL Hemoglobin A1c (<=6.0) % Assessment and Plan Plan: Recurrent TIA with facial drooping and slurred speech Underlying history of insulin-dependent diabetes mellitus maintained on insulin pump Underlying history of asthma Underlying history of hypertension Underlying history of hyperlipidemia Underlying history of benign prostatic hypertrophy Underlying history of gastroesophageal reflux disease Underlying history of peripheral neuropathy History of dizziness and lightheadedness with possible autonomic dysfunction Underlying history of dementia Evidence of oral candidiasis At this time patient is admitted to telemetry floor Home medications reviewed and reordered MRI of the brain requested Neurology consultation and cardiology consultation requested For DVT prophylaxis subcu Lovenox Prognosis is guarded will follow closely
--- NOTE | 2022-12-30 17:28 | P.PN ---
Subjective Progress Note Date: 12/30/22 I am seeing the patient for the first time during this admission. He is accompanied with his sisters who also helps with history. It seems for the several days the patient has been having difficulty with his speech and he is having difficulty getting his words out even though he knows what he is saying and the was are not coming out right and there are lasting for minutes to 2 hours according to the patient. He feels back to baseline. Denies of any focal weakness numbness. Patient was taken aspirin at home. Denies taking Plavix at home. He denies of any headache. Objective - Vital Signs Vital signs: Vital Signs Temp 98.3 F 12/30/22 16:40 Pulse 81 12/30/22 16:40 Resp 18 12/30/22 16:40 BP 147/65 12/30/22 16:40 Pulse Ox 93 L 12/30/22 16:40 FiO2 Intake & Output 12/29/22 12/30/22 12/30/22 18:59 06:59 18:59 Intake Total 368 138 Output Total 450 150 Balance -82 -150 138 Intake: IV 10 20 Invasive Line 1 10 20 Oral 358 118 Output: Urine 450 150 Other: Voiding Method Urinal Urinal Urinal # Voids 1 0 - Exam GENERAL: The patient is lying in bed and is not in acute distress. NEUROLOGICAL: Higher mental function: The patient is awake, alert, oriented to self, place and time. Patient is following commands. No aphasia and no neglect. Cranial nerves: The pupils are round, equal and reactive to light and accommodation. Visual wu are full to confrontation throughout. Extraocular movement is intact no nystagmus is noted. Facial sensation is normal to touch throughout. The facial strength is normal throughout. Hearing is moderately decreased bilaterally to hand rub. Tongue is midline and moved [id number] without any difficulty. No dysarthria is noted. Shoulder shrug is normal bilaterally. Motor: The strength is 5 over 5 throughout. Normal tone and bulk. Cerebellum: Normal finger to nose bilaterally. Sensation: Sensation is normal to touch throughout. - Labs CBC & Chem 7: 12/29/22 10:19 12/29/22 10:19 Labs: Abnormal Lab Results - Last 24 Hours (Table) 12/29/22 12/29/22 12/30/22 Range/Units 10:19 20:38 01:39 POC Glucose (mg/dL) 307 H 246 H (70-110) mg/dL Hemoglobin A1c 8.3 H (<=6.0) % 12/30/22 12/30/22 12/30/22 Range/Units 05:38 11:55 16:55 POC Glucose (mg/dL) 208 H 257 H 275 H (70-110) mg/dL Hemoglobin A1c (<=6.0) % Assessment and Plan Assessment: * Probable recurrent TIA. Patient has presented with expressive aphasia and right hand numbness, that lasted for 1-1/2 hours. The day prior, he had transient facial droop and right tongue numbness, that lasted for an hour. * Patient just had another TIA 10 minutes ago and symptoms lasting for about 10- 15 minutes. Symptoms are completely resolved. At present patient's NIH stroke scale is 0. * Insulin-dependent diabetes * Mild cognitive impairment * X tobacco use * Peripheral neuropathy * Syncopal episodes, likely orthostatic, rule out arrhythmia. Plan: * MRI of the brain without contrast: It is reported as no evidence of intracranial mass or acute/subacute infarct. Nonspecific white matter changes, likely secondary due to small vessel ischemic disease. * 2-D echo performed recently 11/15/2022 was normal. Mildly increased left ventricular wall thickness. Left ventricular EF is 55%. Left atrium is mildly increased in volume. Right Atrium not well visualized. * Dr. Campos, recommends CARLOS to rule out embolic source. Cardiology on board. * CTA head and neck showed: No evidence of dissection of the cervical internal carotid arteries or vertebral arteries or any evidence of significant stenosis of the carotid bifurcations. No evidence of intracranial high-grade stenosis or intracranial aneurysm. Moderate bilateral pleural effusion. * Fasting a.m. lipid panel with cholesterol 150, LDL 68.9, HDL 62 and triglycerides 91 on 10/02/2022. Continue Lipitor 40 mg daily. * Hemoglobin A1c 9.2 on 11/15/2022. Recommend optimize control of diabetes to target A1c < 7.0 * Patient has failed aspirin regimen. He was started on Plavix 75 mg daily. Recommend continue dual antiplatelet medication for 21 days, then stop aspirin and continue Plavix. * Optimize control of blood pressure. * Close neuro checks. * I ordered a routine EEG since having recurrent episodes with reported recurrent syncopal episodes to rule out seizure or discharges. * Patient has recurrent syncopal spells. Suggest tilt table test. * Consider event monitor to rule out arrhythmia. * Telemetry monitoring rule out any arrhythmia * DVT prophylaxis: Heparin 5000 units subcu every 8 hours The plan is discussed with patient, his sister who is at bedside and his nurse. Time with Patient: Less than 30
[2022-12-30] MEDS ORDERED: ONDANSETRON 4 MG/2 ML VIAL IVP PRN (17:36)
[2022-12-30 20:52] LABS: Glucose,Whole Blood 194 mg/dL (70-110)
[2022-12-30] MEDS: TAMSULOSIN 0.4 MG CAP.ER.24H PO SCH (21:51)
[2022-12-30] MEDS: ATORVASTATIN 40 MG TAB PO SCH (21:51)
[2022-12-30] MEDS: Insulin Aspart (For Pump) 100 UNIT/ML VIAL SQ-PUMP SCH (23:58)
[2022-12-31] MEDS: INSULIN PUMP MEAL BOLUS 1 UNIT MISC MISCELLANE SCH ×5 (03:03→22:31)
[2022-12-31 06:14] LABS: Glucose,Whole Blood 84 mg/dL (70-110)
[2022-12-31] MEDS: PANTOPRAZOLE 40 MG TABLET PO SCH ×3 (06:31→16:49)
[2022-12-31 09:09] LABS: Basophils % (A) 0 %; Eosinophils # (A) 0.2 k/uL (0-0.7); Eosinophils % (A) 3 %; HCT 37.2 % (39.0-53.0); HGB 12.3 gm/dL (13.0-17.5); Lymphocytes # (A) 2.3 k/uL (1.0-4.8); Lymphocytes % (A) 44 %; MCH 33.3 pg (25.0-35.0); MCV 100.8 fL (80.0-100.0); Macrocytosis Slight; Mean Platelet Volume 8.6; Monocytes # (A) 0.3 k/uL (0-1.0); Monocytes % (A) 5 %; Neutrophils # (A) 2.3 k/uL (1.3-7.7); Neutrophils % (A) 45 %; Platelet Count 194 k/uL (150-450); RBC 3.69 m/uL (4.30-5.90); RDW 14.3 % (11.5-15.5); WBC 5.2 k/uL (3.8-10.6)
[2022-12-31 09:23] LABS: ALT 61 U/L (4-49); AST 85 U/L (17-59); African American GFR (CKD) >90 (>60 ml/min/1.73 sqM); Albumin 3.2 g/dL (3.5-5.0); Alkaline Phosphatase 57 U/L (38-126); Anion Gap 6 mmol/L; Blood Urea Nitrogen 13 mg/dL (9-20); Calcium 8.5 mg/dL (8.4-10.2); Carbon Dioxide 26 mmol/L (22-30); Chloride 110 mmol/L (98-107); Glucose 103 mg/dL (74-99); Non-African American GFR(CKD) 89 (>60 ml/min/1.73 sqM); Potassium 3.8 mmol/L (3.5-5.1); Sodium 142 mmol/L (137-145); Total Bilirubin 0.7 mg/dL (0.2-1.3); Total Protein 5.9 g/dL (6.3-8.2)
[2022-12-31 10:10] LABS: Glucose,Whole Blood 108 mg/dL (70-110)
[2022-12-31] MEDS: NYSTATIN 100,000 UNIT/ML SUSP 500,000 UNIT/5 ML CUP PO SCH ×4 (10:11→22:54)
--- NOTE | 2022-12-31 10:39 | P.PN ---
Subjective Progress Note Date: 12/31/22 Yury Brewer, is a 72-year-old male who presented to [facility] emergency room with a chief complaint of slurred speech and facial drooping. Patient had an episode of slurred speech that lasted 1-2 hours at the time of admission. Apparently patient also had similar episode one day prior to admission, that also resolved within 1-2 hours. He was evaluated in the emergency room vital examination on presentation revealed a temperature of 98 pulse 58 respiration 20 blood pressure 151/65 pulse ox 98% on room air Laboratory data reveals a white blood count of 5.5 hemoglobin 13.3 platelet count 208 sodium 139 potassium 4.6 chloride 108 CO2 24 BUN 13 creatinine 0.74 AST 92 a LT 60 alkaline phosphatase 87 Testing in the emergency room revealed cardiac prominence with pleural effusions on the lateral view, computed tomography scan of the brain without contrast done in the emergency room revealed no acute intracranial process, there was nonspecific white matter changes likely secondary to chronic small of his ischemic disease. CT angiogram of the head and neck revealed no evidence of dissection of the cervical internal carotid arteries or vertebral arteries or any evidence of significant stenosis of the carotid bifurcations, no evidence of intracranial high-grade stenosis or intracranial aneurysm. Patient was admitted to medical floor for further evaluation and treatment On 12/29/2022 patient was seen and examined on the telemetry floor he is alert and oriented 3 in no apparent distress there is no fever or chills no headache or dizziness no chest pain no shortness of breath no cough no nausea or vomiting no abdominal pain no diarrhea and no urinary symptoms. There are no new episodes of speech abnormalities or facial drooping, patient still complaining of numbness in the right upper extremity, otherwise he denies any complaint. At this time awaiting MRI of the brain and further recommendation from neurology and cardiology. On 12/30/2022 patient was seen and examined on the telemetry floor he is alert and oriented 3 in no apparent distress there is no fever or chills no headache or dizziness no chest pain no shortness of breath no cough no nausea or vomiting no abdominal pain no diarrhea and no urinary symptoms there are no new episodes of slurred speech or facial drooping. At this time cardiology and neurology input reviewed, will continue to follow awaiting further testing results possible discharge to home in the next 1-2 days. On 12/31/2022 patient is alert and oriented X 3. patient reports no further neurological symptoms. denies chest pain or shortness of breath. Denies nausea vomiting or diarrhea. Denies any urinary burning or frequency. CARLOS and EEG ordered per neurology and cardiology Objective - Vital Signs Vital signs: Vital Signs Temp 98.0 F 12/31/22 08:00 Pulse 68 12/31/22 08:00 Resp 18 12/31/22 08:00 BP 153/66 12/31/22 08:00 Pulse Ox 94 L 12/31/22 08:00 FiO2 Intake & Output 12/30/22 12/31/22 12/31/22 18:59 06:59 18:59 Intake Total 258 10 Output Total 200 400 Balance 58 -400 10 Intake: IV 20 10 Invasive Line 1 20 10 Oral 238 Output: Urine 200 400 Other: Voiding Method Urinal Urinal Urinal # Voids 0 1 - Exam In general patient is alert and oriented x 3 in no distress HEENT head normocephalic and atraumatic Neck is supple no JVD no goiter no lymphadenopathy no carotid bruit Chest examination is clear to auscultation no crackles no wheezing Cardiac exam reveals regular heart sounds S1 and S2 no gallops no murmurs Abdomen is soft nontender no organomegaly with normal bowel sounds Extremity exam reveals no edema no cyanosis or clubbing Neurological examination reveals no gross focal deficits - Labs CBC & Chem 7: 12/31/22 08:54 12/31/22 08:54 Labs: Abnormal Lab Results - Last 24 Hours (Table) 12/30/22 12/30/22 12/30/22 Range/Units 11:55 16:55 20:50 RBC (4.30-5.90) m/uL Hgb (13.0-17.5) gm/dL Hct (39.0-53.0) % MCV (80.0-100.0) fL Chloride (98-107) mmol/L Glucose (74-99) mg/dL POC Glucose (mg/dL) 257 H 275 H 194 H (70-110) mg/dL AST (17-59) U/L ALT (4-49) U/L Total Protein (6.3-8.2) g/dL Albumin (3.5-5.0) g/dL 12/31/22 12/31/22 Range/Units 08:54 08:54 RBC 3.69 L (4.30-5.90) m/uL Hgb 12.3 L (13.0-17.5) gm/dL Hct 37.2 L (39.0-53.0) % MCV 100.8 H (80.0-100.0) fL Chloride 110 H (98-107) mmol/L Glucose 103 H (74-99) mg/dL POC Glucose (mg/dL) (70-110) mg/dL AST 85 H (17-59) U/L ALT 61 H (4-49) U/L Total Protein 5.9 L (6.3-8.2) g/dL Albumin 3.2 L (3.5-5.0) g/dL Assessment and Plan Assessment: Recurrent TIA with facial drooping and slurred speech Underlying history of insulin-dependent diabetes mellitus maintained on insulin pump Underlying history of asthma Underlying history of hypertension Underlying history of hyperlipidemia Underlying history of benign prostatic hypertrophy Underlying history of gastroesophageal reflux disease Underlying history of peripheral neuropathy History of dizziness and lightheadedness with possible autonomic dysfunction Underlying history of dementia Evidence of oral candidiasis At this time patient is admitted to telemetry floor Home medications reviewed and reordered MRI of the brain requested CARLOS ordered EEG ordered Neurology consultation and cardiology consultation requested For DVT prophylaxis subcu Lovenox Prognosis is guarded will follow closely
[2022-12-31 11:34] LABS: Glucose,Whole Blood 104 mg/dL (70-110)
[2022-12-31] MEDS ORDERED: fentaNYL (PF) 50 MCG/ML 2 ML AMP ONE (12:46)
[2022-12-31] MEDS: MEMANTINE 5 MG TAB PO SCH ×2 (13:06→22:53)
[2022-12-31] MEDS ORDERED: SODIUM CHLORIDE 0.9% 500 ML 500 ML IV ONE (13:15)
[2022-12-31] MEDS ORDERED: BENZOCAINE SPRAY 1 CAN TOPICAL ONE ×2 (13:17→13:29)
[2022-12-31] MEDS ORDERED: MIDAZOLAM 2 MG/2 ML VIAL IVP ONE (13:34)
--- NOTE | 2022-12-31 13:44 | P.PCN ---
Date of Procedure: 12/31/22 Operative Findings: TRANSESOPHAGEAL ECHOCARDIOGRAM BARK TANNER: MARILYN VERDUZCO MD, RPVI INDICATION: Stroke SEDATION: Conscious sedation COMPLICATION: None LEVEL OF SEDATION Moderate sedation length of 10 minutes PROCEDURE DESCRIPTION: After obtaining an informed consent, the patient was brought to transesophageal echocardiogram room. Pulse oximetry and heart monitors were attached to the patient. The patient throat was sprayed using lidocaine. The patient was turned into left lateral position. After that a bite guard was placed. After an appropriate conscious sedation was initiated, the transesophageal echocardiogram was advanced through a bite guard into the mid esophagus. A 2-D echocardiogram images, color Doppler images, continuous wave images, pulse-wave images, of various cardiac structure were performed. After that the transesophageal echocardiogram probe was advanced into the stomach and fixed to obtain transgastric view was. The probe was brought into the mid esophagus. Inter-atrial septum was interrogated using 2D images, color Doppler images, and then contrast study. After that transesophageal echocardiogram was withdrawn out and upon withdrawing the descending thoracic aorta all the way up to the arch was evaluated. FINDING: The left ventricular dimension and systolic function appeared to be within normal limits. The ejection fraction appears to be in the range of 50-55%. The right ventricle appeared to be of normal size and function. Aortic valve is trileaflet valve was no stenosis or regurgitation with a mitral valve appeared to be intact was moderate mitral regurgitation. The interatrial septum appeared to be intact was no PFO or ASD. Left atrium appendage appeared to be intact. Normal tricuspid valve and pulmonic valve CONCLUSION: 1. No evidence of cardiac source of embolization 2. Intact interatrial septum an intact left atrial appendage 3. No evidence of infective endocarditis 4. Moderate mitral regurgitation 5. Normal biventricular dimension and systolic function 6. evidence of pericardial effusion
--- NOTE | 2022-12-31 14:52 | P.PN ---
Subjective Progress Note Date: 12/31/22 HISTORY OF PRESENT ILLNESS: This is a 72-year-old male with a past medical history significant for moderate noncritical coronary artery disease, hypertension, hyperlipidemia, diabetes, and peripheral arterial disease. Patient follows in the office with Dr. Bhardwaj but was recently evaluated in the office by Dr. Petit secondary to PAD.. We have been asked to see the patient in consultation for recurrent TIAs. Patient examined at the bedside. Patient states he presented to the hospital for chief complaint of slurred speech and right-sided numbness. Patient states his symptoms have since resolved. He denies a previous history of TIA or CVA. Patient underwent CT of the brain which was negative for acute process. He underwent CTA which did not reveal any significant stenosis of intracranial arteries. He is scheduled to undergo MRI of the brain tomorrow. Telemetry reveals sinus mechanism. No evidence of atrial fibrillation has been noted. The patient does report having occasional palpitations at home. * EKG reveals sinus mechanism with no signs of acute ischemia * Chest xray cardiac prominence with pleural effusions on lateral view * Current home cardiac medications include aspirin 81 mg daily and Lipitor 40 mg at night * Most recent echocardiogram obtained in October 2022 revealed ejection fraction 55% trace MR * Cardiac catheterization history: March 2018 revealing moderate noncritical disease in all 3 vessels. No gradient across the aortic valve. Normal filling pressures. 12/30 MRI of the brain done today revealed no evidence of intracranial mass or acute subacute infarct. Nonspecific white matter changes likely secondary to small vessel ischemic disease. Patient states that he is still feeling like crap. He states he still having speech difficulty and not back to his normal. He states he has lightheadedness or dizziness on and off. Case reviewed with neurology an d we will proceed with CARLOS tomorrow. 12/31 Patient states he had one episode of speech difficulty since admitted. He denies chest pain, no shortness of breath. He is scheduled for CARLOS today with Dr. Petit. Heart rate has been in the 50s, blood pressure 147/83, pulse ox 96% on 2 L nasal cannula. Hemoglobin 12.3. Creatinine 0.82. PHYSICAL EXAM: VITAL SIGNS: Reviewed. GENERAL: Well-developed in no acute distress. HEENT: Head is normocephalic. Pupils are equal, round. Sclerae anicteric. Mucous membranes of the mouth are moist. Neck supple. No JVD or thyromegaly LUNGS: Respirations even and unlabored. Lungs essentially clear to auscultation bilaterally. HEART: Regular rate and rhythm. S1 and S2 heard. EXTREMITIES: Normal range of motion. No clubbing or cyanosis. Peripheral pulses intact. No lower extremity edema NEUROLOGIC: Awake and alert. Oriented x 3. ASSESSMENT: Slurred speech and right-sided numbness, possible TIA Moderate noncritical coronary artery disease, per cardiac catheterization in 2018 Hypertension Hyperlipidemia Diabetes Peripheral arterial disease PLAN: No need to repeat echocardiogram as this was performed in October 2022 Continue telemetry monitoring to assess for any arrhythmias CARLOS will be scheduled today with Dr. Petit Consider event monitor at the time of discharge Further recommendations pending patient's course Nurse practitioner note has been reviewed by physician. Signing provider agrees with the documented findings, assessment, and plan of care. Objective - Vital Signs Vital signs: Vital Signs Temp 98.0 F 12/31/22 08:00 Pulse 68 12/31/22 08:00 Resp 18 12/31/22 08:00 BP 153/66 12/31/22 08:00 Pulse Ox 94 L 12/31/22 08:00 FiO2 Intake & Output 12/30/22 12/31/22 12/31/22 18:59 06:59 18:59 Intake Total 258 10 Output Total 200 400 Balance 58 -400 10 Intake: IV 20 10 Invasive Line 1 20 10 Oral 238 Output: Urine 200 400 Other: Voiding Method Urinal Urinal Urinal # Voids 0 1 - Labs CBC & Chem 7: 12/31/22 08:54 12/31/22 08:54 Labs: Abnormal Lab Results - Last 24 Hours (Table) 12/30/22 12/30/22 12/30/22 Range/Units 11:55 16:55 20:50 RBC (4.30-5.90) m/uL Hgb (13.0-17.5) gm/dL Hct (39.0-53.0) % MCV (80.0-100.0) fL Chloride (98-107) mmol/L Glucose (74-99) mg/dL POC Glucose (mg/dL) 257 H 275 H 194 H (70-110) mg/dL AST (17-59) U/L ALT (4-49) U/L Total Protein (6.3-8.2) g/dL Albumin (3.5-5.0) g/dL 12/31/22 12/31/22 Range/Units 08:54 08:54 RBC 3.69 L (4.30-5.90) m/uL Hgb 12.3 L (13.0-17.5) gm/dL Hct 37.2 L (39.0-53.0) % MCV 100.8 H (80.0-100.0) fL Chloride 110 H (98-107) mmol/L Glucose 103 H (74-99) mg/dL POC Glucose (mg/dL) (70-110) mg/dL AST 85 H (17-59) U/L ALT 61 H (4-49) U/L Total Protein 5.9 L (6.3-8.2) g/dL Albumin 3.2 L (3.5-5.0) g/dL
[2022-12-31] MEDS: ACETAMINOPHEN TAB 500 MG TAB PO SCH ×2 (15:34→22:53)
--- NOTE | 2022-12-31 16:06 | P.PN ---
Subjective Progress Note Date: 12/31/22 I am following up with the patient and he feels he is back to baseline. Denies of any new neurological issues appear denies of any further speech difficulty. Objective - Vital Signs Vital signs: Vital Signs Temp 97.9 F 12/31/22 15:17 Pulse 56 L 12/31/22 15:17 Resp 14 12/31/22 15:17 BP 154/74 12/31/22 15:17 Pulse Ox 98 12/31/22 15:17 FiO2 Intake & Output 12/30/22 12/31/22 12/31/22 18:59 06:59 18:59 Intake Total 258 120 Output Total 200 400 Balance 58 -400 120 Intake: IV 20 120 0.9% NS FLUSH 10 Invasive Line 1 20 10 Oral 238 Output: Urine 200 400 Other: Voiding Method Urinal Urinal Urinal # Voids 0 1 - Exam GENERAL: The patient is lying in bed and is not in acute distress. NEUROLOGICAL: Higher mental function: The patient is awake, alert, oriented to self, place and time. Patient is following commands. No aphasia and no neglect. Cranial nerves: The pupils are round, equal and reactive to light and accommodation. Visual wu are full to confrontation throughout. Extraocular movement is intact no nystagmus is noted. Facial sensation is normal to touch throughout. The facial strength is normal throughout. Hearing is moderately decreased bilaterally to hand rub. Tongue is midline and moved [id number] without any difficulty. No dysarthria is noted. Shoulder shrug is normal bilaterally. Motor: The strength is 5 over 5 throughout. Normal tone and bulk. Cerebellum: Normal finger to nose bilaterally. Sensation: Sensation is normal to touch throughout. - Labs CBC & Chem 7: 12/31/22 08:54 12/31/22 08:54 Labs: Abnormal Lab Results - Last 24 Hours (Table) 12/30/22 12/30/22 12/31/22 Range/Units 16:55 20:50 08:54 RBC 3.69 L (4.30-5.90) m/uL Hgb 12.3 L (13.0-17.5) gm/dL Hct 37.2 L (39.0-53.0) % MCV 100.8 H (80.0-100.0) fL Chloride (98-107) mmol/L Glucose (74-99) mg/dL POC Glucose (mg/dL) 275 H 194 H (70-110) mg/dL AST (17-59) U/L ALT (4-49) U/L Total Protein (6.3-8.2) g/dL Albumin (3.5-5.0) g/dL 12/31/22 Range/Units 08:54 RBC (4.30-5.90) m/uL Hgb (13.0-17.5) gm/dL Hct (39.0-53.0) % MCV (80.0-100.0) fL Chloride 110 H (98-107) mmol/L Glucose 103 H (74-99) mg/dL POC Glucose (mg/dL) (70-110) mg/dL AST 85 H (17-59) U/L ALT 61 H (4-49) U/L Total Protein 5.9 L (6.3-8.2) g/dL Albumin 3.2 L (3.5-5.0) g/dL Assessment and Plan Assessment: * Probable recurrent TIA. Patient has presented with expressive aphasia and right hand numbness, that lasted for 1-1/2 hours. The day prior, he had t ransient facial droop and right tongue numbness, that lasted for an hour. * Patient just had another TIA 10 minutes ago and symptoms lasting for about 10- 15 minutes. Symptoms are completely resolved. At present patient's NIH stroke scale is 0. * Insulin-dependent diabetes * Mild cognitive impairment * X tobacco use * Peripheral neuropathy * Syncopal episodes, likely orthostatic, rule out arrhythmia. Plan: * MRI of the brain without contrast: It is reported as no evidence of intracranial mass or acute/subacute infarct. Nonspecific white matter changes, likely secondary due to small vessel ischemic disease. * 2-D echo performed recently 11/15/2022 was normal. Mildly increased left ventricular wall thickness. Left ventricular EF is 55%. Left atrium is mildly increased in volume. Right Atrium not well visualized. * CARLOS: 1. No evidence of cardiac source of embolization 2. Intact interatrial septum an intact left atrial appendage 3. No evidence of infective endocarditis 4. Moderate mitral regurgitation 5. Normal biventricular dimension and systolic function6. evidence of pericardial effusion * CTA head and neck showed: No evidence of dissection of the cervical internal carotid arteries or vertebral arteries or any evidence of significant stenosis of the carotid bifurcations. No evidence of intracranial high-grade stenosis or intracranial aneurysm. Moderate bilateral pleural effusion. * Fasting a.m. lipid panel with cholesterol 150, LDL 68.9, HDL 62 and triglycerides 91 on 10/02/2022. Continue Lipitor 40 mg daily. * Hemoglobin A1c 9.2 on 11/15/2022. Recommend optimize control of diabetes to target A1c < 7.0 * Patient has failed aspirin regimen. He was started on Plavix 75 mg daily. Recommend continue dual antiplatelet medication for 21 days, then stop aspirin and continue Plavix. * Optimize control of blood pressure. * Close neuro checks. * Routine EEG: Is normal. * Patient has recurrent syncopal spells Dr. Campos recommended tilt table test and and event monitor to rule out arrhythmia. * Telemetry monitoring rule out any arrhythmia * DVT prophylaxis: Heparin 5000 units subcu every 8 hours The plan is discussed with patient. Otherwise no additional work-up. Time with Patient: Less than 30
[2022-12-31 16:14] LABS: Glucose,Whole Blood 82 mg/dL (70-110)
[2022-12-31] MEDS: ASPIRIN 81 MG PO SCH (16:48)
[2022-12-31] MEDS: CLOPIDOGREL 75 MG TAB PO SCH (16:48)
[2022-12-31] MEDS: DOCUSATE 100 MG CAP PO SCH (16:49)
[2022-12-31] MEDS: lisinopriL 10 MG TAB PO SCH (16:49)
[2022-12-31] MEDS: FINASTERIDE 5 MG TAB PO SCH (16:49)
[2022-12-31] MEDS: FLUDROCORTISONE 0.1 MG TAB PO SCH (16:49)
[2022-12-31] MEDS: ENOXAPARIN 40 MG/0.4 ML SYRINGE SQ SCH (16:49)
--- NOTE | 2022-12-31 18:41 | EEG ---
ELECTROENCEPHALOGRAM REPORT CLINICAL HISTORY: This is a 72-year-old gentleman with recurrent transient aphasia. The video EEG is obtained to evaluate for seizure epileptiform activity. RELEVANT MEDICATIONS: The patient is not on any antiepileptic drugs. EEG TYPE: This is a routine 21-channel EEG with video using the 10/20 electrode placement system. DESCRIPTION: Wakefulness is only obtained. During awake state, the posterior-dominant rhythm consists of [id number] voltage of 9 to 10 hertz activity. There is no physiological stage 2 sleep architecture. There is no focal slowing. Interictal and ictal is none. ACTIVATION PROCEDURE: Photic stimulation did not evoke a posterior driving response. There is no abnormality during the photic stimulation. Hyperventilation is not performed. CLINICAL INTERPRETATION: This is a normal routine EEG. There is no focal slowing, epileptiform discharge, or seizure on the EEG. A normal routine EEG does not rule out any underlying epilepsy. Clinical correlation is recommended. JOE / LESLYE: [id number] / MTDD
[2022-12-31 20:30] LABS: Glucose,Whole Blood 102 mg/dL (70-110)
[2022-12-31] MEDS: Insulin Aspart (For Pump) 100 UNIT/ML VIAL SQ-PUMP SCH (22:31)
[2022-12-31] MEDS: ATORVASTATIN 40 MG TAB PO SCH (22:53)
[2022-12-31] MEDS: TAMSULOSIN 0.4 MG CAP.ER.24H PO SCH (22:54)
[2023-01-01 07:01] LABS: Glucose,Whole Blood 80 mg/dL (70-110)
[2023-01-01] MEDS: INSULIN PUMP MEAL BOLUS 1 UNIT MISC MISCELLANE SCH ×4 (07:07→21:22)
[2023-01-01] MEDS: PANTOPRAZOLE 40 MG TABLET PO SCH ×2 (07:08→16:41)
[2023-01-01] MEDS: ENOXAPARIN 40 MG/0.4 ML SYRINGE SQ SCH (08:18)
[2023-01-01] MEDS: ASPIRIN 81 MG PO SCH (08:19)
[2023-01-01] MEDS: DOCUSATE 100 MG CAP PO SCH (08:19)
[2023-01-01] MEDS: ACETAMINOPHEN TAB 500 MG TAB PO SCH ×2 (08:19→21:21)
[2023-01-01] MEDS: NYSTATIN 100,000 UNIT/ML SUSP 500,000 UNIT/5 ML CUP PO SCH ×4 (08:19→21:24)
[2023-01-01] MEDS: FLUDROCORTISONE 0.1 MG TAB PO SCH (08:20)
[2023-01-01] MEDS: MEMANTINE 5 MG TAB PO SCH ×2 (08:20→21:21)
[2023-01-01] MEDS: lisinopriL 10 MG TAB PO SCH (08:20)
[2023-01-01] MEDS: FINASTERIDE 5 MG TAB PO SCH (08:20)
[2023-01-01] MEDS: CLOPIDOGREL 75 MG TAB PO SCH (08:20)
[2023-01-01 11:39] LABS: Glucose,Whole Blood 168 mg/dL (70-110)
[2023-01-01] MEDS: hydrALAZINE HCL 20 MG/ML 1 ML VIAL IVP PRN ×3 (12:31→23:39)
--- NOTE | 2023-01-01 12:51 | CDI ---
Documentation Clarification Form Date: 01/01/2023 12:18:14 PM From: Anna Hedrick RN CCDS Phone: [phone] Admit Date: 12/30/2022 07:30:00 AM Patient Name: Yury Brewer Visit Number: [id number] Discharge Date: ATTENTION: The Clinical Documentation Specialists (CDI) and [facility] Coding Staff appreciate your assistance in clarifying documentation. Please respond to the clarification below the line at the bottom and electronically sign. The CDI & [facility] Coding staff will review the response and follow-up if needed. Please note: Queries are made part of the Legal Health Record. If you have any questions, please contact the author of this message via ITS. Dr. Ej Gibson TIA is documented 12/28 12/31, Medicine H&P and notes. Additional clarification regarding the etiology of the TIA is requested. Patient history/risk factors: 72-year-old male presents with slurred speech and facial drooping, lasting 1-2 hours. Apparently had similar episode one day prior to admission. Medical history: Dementa, IDDM type 1 with insulin pump, CAD and HTN. 12/28, H&P. Clinical indicators: 12/27: CTA, Head, Neck: 1.No evidence of dissection of the cervical internal carotid arteries or vertebral arteries or any evidence of significant stenosis at the carotid bifurcations.2.No evidence of intracranial high-grade stenosis or intracranial aneurysm. 12/30: MRI of the brain without contrast: It is reported as no evidence of intracranial mass or acute/subacute infarct. Nonspecific white matter changes, likely secondary due to small vessel ischemic disease. 12/31:CARLOS: 1.No evidence of cardiac source of embolization 2.Intact interatrial septum an intact left atrial appendage 3.No evidence of infective endocarditis 4.Moderate mitral regurgitation 5.Normal biventricular dimension and systolic function 6. evidence of pericardial effusion Treatment: Aspirin and Plavix for 21 days then continue with Plavix, Neuro checks, Telemetry monitoring Consult: Neurology, Probable recurrent TIA. Please clarify the etiology of the TIA, if known: [ ] Small vessel ischemic disease. [ ] Sequelae of Cerebrovascular Disease [ ] Other (please specify): [ x ] Etiology unknown or Unable to determine (Template Last Revised: May 2020) MTDD
--- NOTE | 2023-01-01 14:18 | P.PN ---
Subjective Progress Note Date: 01/01/23 HISTORY OF PRESENT ILLNESS: This is a 72-year-old male with a past medical history significant for moderate noncritical coronary artery disease, hypertension, hyperlipidemia, diabetes, and peripheral arterial disease. Patient follows in the office with Dr. Bhardwaj but was recently evaluated in the office by Dr. Petit secondary to PAD.. We have been asked to see the patient in consultation for recurrent TIAs. Patient examined at the bedside. Patient states he presented to the hospital for chief complaint of slurred speech and right-sided numbness. Patient states his symptoms have since resolved. He denies a previous history of TIA or CVA. Patient underwent CT of the brain which was negative for acute process. He underwent CTA which did not reveal any significant stenosis of intracranial arteries. He is scheduled to undergo MRI of the brain tomorrow. Telemetry reveals sinus mechanism. No evidence of atrial fibrillation has been noted. The patient does report having occasional palpitations at home. * EKG reveals sinus mechanism with no signs of acute ischemia * Chest xray cardiac prominence with pleural effusions on lateral view * Current home cardiac medications include aspirin 81 mg daily and Lipitor 40 mg at night * Most recent echocardiogram obtained in October 2022 revealed ejection fraction 55% trace MR * Cardiac catheterization history: March 2018 revealing moderate noncritical disease in all 3 vessels. No gradient across the aortic valve. Normal filling pressures. 12/30 MRI of the brain done today revealed no evidence of intracranial mass or acute subacute infarct. Nonspecific white matter changes likely secondary to small vessel ischemic disease. Patient states that he is still feeling like crap. He states he still having speech difficulty and not back to his normal. He states he has lightheadedness or dizziness on and off. Case reviewed with neurology an d we will proceed with CARLOS tomorrow. 12/31 Patient states he had one episode of speech difficulty since admitted. He denies chest pain, no shortness of breath. He is scheduled for CARLOS today with Dr. Petit. Heart rate has been in the 50s, blood pressure 147/83, pulse ox 96% on 2 L nasal cannula. Hemoglobin 12.3. Creatinine 0.82. 01/01 The patient is seen today in follow-up. Plan is for possible discharge home today. Patient underwent CARLOS yesterday with Dr. Petit that revealed no evidence of cardiac source of embolization. Intact interatrial atrial septum and intact left atrial appendage. No evidence of infective endocarditis. Moderate mitral regurgitation, normal biventricular dimension and systolic function. Evidence of pericardial effusion. Due to the pericardial effusion, a limited echocardiogram will be ordered prior to discharge. Patient has had no signs of atrial fibrillation. Patient has been afebrile, heart rate in the 50s, blood pressure 187/73, PHYSICAL EXAM: VITAL SIGNS: Reviewed. GENERAL: Well-developed in no acute distress. HEENT: Head is normocephalic. Pupils are equal, round. Sclerae anicteric. Mucous membranes of the mouth are moist. Neck supple. No JVD or thyromegaly LUNGS: Respirations even and unlabored. Lungs essentially clear to auscultation bilaterally. HEART: Regular rate and rhythm. S1 and S2 heard. EXTREMITIES: Normal range of motion. No clubbing or cyanosis. Peripheral pulses intact. No lower extremity edema NEUROLOGIC: Awake and alert. Oriented x 3. ASSESSMENT: Slurred speech and right-sided numbness, possible TIA Moderate noncritical coronary artery disease, per cardiac catheterization in 2018 Hypertension Hyperlipidemia Diabetes Peripheral arterial disease PLAN: Limited echocardiogram today to evaluate pericardial effusion Continue telemetry monitoring to assess for any arrhythmias Further recommendations pending patient's course Nurse practitioner note has been reviewed by physician. Signing provider agrees with the documented findings, assessment, and plan of care. Objective - Vital Signs Vital signs: Vital Signs Temp 98 F 12/31/22 20:00 Pulse 56 L 01/01/23 08:00 Resp 16 01/01/23 08:00 BP 170/77 01/01/23 08:00 Pulse Ox 96 01/01/23 08:00 FiO2 Intake & Output 12/31/22 01/01/23 01/01/23 18:59 06:59 18:59 Intake Total 120 Output Total 400 Balance 120 -400 Intake: IV 120 0.9% NS FLUSH 10 Invasive Line 1 10 Output: Urine 400 Other: Voiding Method Urinal Urinal Urinal # Voids 1 - Labs CBC & Chem 7: 12/31/22 08:54 12/31/22 08:54
--- NOTE | 2023-01-01 14:25 | P.PN ---
Subjective Progress Note Date: 01/01/23 Yury Brewer, is a 72-year-old male who presented to [facility] emergency room with a chief complaint of slurred speech and facial drooping. Patient had an episode of slurred speech that lasted 1-2 hours at the time of admission. Apparently patient also had similar episode one day prior to admission, that also resolved within 1-2 hours. He was evaluated in the emergency room vital examination on presentation revealed a temperature of 98 pulse 58 respiration 20 blood pressure 151/65 pulse ox 98% on room air Laboratory data reveals a white blood count of 5.5 hemoglobin 13.3 platelet count 208 sodium 139 potassium 4.6 chloride 108 CO2 24 BUN 13 creatinine 0.74 AST 92 a LT 60 alkaline phosphatase 87 Testing in the emergency room revealed cardiac prominence with pleural effusions on the lateral view, computed tomography scan of the brain without contrast done in the emergency room revealed no acute intracranial process, there was nonspecific white matter changes likely secondary to chronic small of his ischemic disease. CT angiogram of the head and neck revealed no evidence of dissection of the cervical internal carotid arteries or vertebral arteries or any evidence of significant stenosis of the carotid bifurcations, no evidence of intracranial high-grade stenosis or intracranial aneurysm. Patient was admitted to medical floor for further evaluation and treatment On 12/29/2022 patient was seen and examined on the telemetry floor he is alert and oriented 3 in no apparent distress there is no fever or chills no headache or dizziness no chest pain no shortness of breath no cough no nausea or vomiting no abdominal pain no diarrhea and no urinary symptoms. There are no new episodes of speech abnormalities or facial drooping, patient still complaining of numbness in the right upper extremity, otherwise he denies any complaint. At this time awaiting MRI of the brain and further recommendation from neurology and cardiology. On 12/30/2022 patient was seen and examined on the telemetry floor he is alert and oriented 3 in no apparent distress there is no fever or chills no headache or dizziness no chest pain no shortness of breath no cough no nausea or vomiting no abdominal pain no diarrhea and no urinary symptoms there are no new episodes of slurred speech or facial drooping. At this time cardiology and neurology input reviewed, will continue to follow awaiting further testing results possible discharge to home in the next 1-2 days. On 12/31/2022 patient is alert and oriented X 3. patient reports no further neurological symptoms. denies chest pain or shortness of breath. Denies nausea vomiting or diarrhea. Denies any urinary burning or frequency. CARLOS and EEG ordered per neurology and cardiology On 01/01/2023 patient is alert and oriented 3. Patient underwent CARLOS yesterday showing no evidence of cardiac source of embolization but did show evidence of pericardial effusion. Discussed case with cardiology services at this time cardiology plan to order a limited echo and continue to monitor patient for arrhythmias. Patient denies chest pain or shortness of breath. Patient denies nausea vomiting or diarrhea. Patient denies any urinary burning or frequency. Objective - Vital Signs Vital signs: Vital Signs Temp 98 F 12/31/22 20:00 Pulse 59 L 01/01/23 12:00 Resp 16 01/01/23 12:00 BP 187/73 01/01/23 12:00 Pulse Ox 97 01/01/23 12:00 FiO2 Intake & Output 12/31/22 01/01/23 01/01/23 18:59 06:59 18:59 Intake Total 120 Output Total 400 Balance 120 -400 Intake: IV 120 0.9% NS FLUSH 10 Invasive Line 1 10 Output: Urine 400 Other: Voiding Method Urinal Urinal Urinal # Voids 1 - Exam In general patient is alert and oriented x 3 in no distress HEENT head normocephalic and atraumatic Neck is supple no JVD no goiter no lymphadenopathy no carotid bruit Chest examination is clear to auscultation no crackles no wheezing Cardiac exam reveals regular heart sounds S1 and S2 no gallops no murmurs Abdomen is soft nontender no organomegaly with normal bowel sounds Extremity exam reveals no edema no cyanosis or clubbing Neurological examination reveals no gross focal deficits - Labs CBC & Chem 7: 12/31/22 08:54 12/31/22 08:54 Labs: Abnormal Lab Results - Last 24 Hours (Table) 01/01/23 Range/Units 11:34 POC Glucose (mg/dL) 168 H (70-110) mg/dL Assessment and Plan Assessment: Recurrent TIA with facial drooping and slurred speech Underlying history of insulin-dependent diabetes mellitus maintained on insulin pump Underlying history of asthma Underlying history of hypertension Underlying history of hyperlipidemia Underlying history of benign prostatic hypertrophy Underlying history of gastroesophageal reflux disease Underlying history of peripheral neuropathy History of dizziness and lightheadedness with possible autonomic dysfunction Underlying history of dementia Evidence of oral candidiasis Pericardial effusion seen on CARLOS per cardiology limited 2-D echo ordered At this time patient is admitted to telemetry floor Home medications reviewed and reordered MRI of the brain completed CARLOS completed EEG completed Neurology consultation and cardiology consultation requested For DVT prophylaxis subcu Lovenox Prognosis is guarded will follow closely
[2023-01-01 16:36] LABS: Glucose,Whole Blood 115 mg/dL (70-110)
[2023-01-01 21:19] LABS: Glucose,Whole Blood 196 mg/dL (70-110)
[2023-01-01] MEDS: TAMSULOSIN 0.4 MG CAP.ER.24H PO SCH (21:21)
[2023-01-01] MEDS: ATORVASTATIN 40 MG TAB PO SCH (21:21)
[2023-01-01] MEDS: Insulin Aspart (For Pump) 100 UNIT/ML VIAL SQ-PUMP SCH (21:22)
[2023-01-02 02:11] LABS: Glucose,Whole Blood 125 mg/dL (70-110)
[2023-01-02 06:10] LABS: Glucose,Whole Blood 130 mg/dL (70-110)
[2023-01-02] MEDS: INSULIN PUMP MEAL BOLUS 1 UNIT MISC MISCELLANE SCH ×4 (06:25→21:08)
[2023-01-02] MEDS: PANTOPRAZOLE 40 MG TABLET PO SCH ×2 (06:25→16:18)
[2023-01-02] MEDS: lisinopriL 10 MG TAB PO SCH (08:11)
[2023-01-02] MEDS: MEMANTINE 5 MG TAB PO SCH ×2 (08:11→21:08)
[2023-01-02] MEDS: FLUDROCORTISONE 0.1 MG TAB PO SCH (08:11)
[2023-01-02] MEDS: CLOPIDOGREL 75 MG TAB PO SCH (08:11)
[2023-01-02] MEDS: ASPIRIN 81 MG PO SCH (08:11)
[2023-01-02] MEDS: FINASTERIDE 5 MG TAB PO SCH (08:11)
[2023-01-02] MEDS: NYSTATIN 100,000 UNIT/ML SUSP 500,000 UNIT/5 ML CUP PO SCH ×4 (08:11→21:08)
[2023-01-02] MEDS: ACETAMINOPHEN TAB 500 MG TAB PO SCH ×2 (08:11→21:08)
[2023-01-02] MEDS: ENOXAPARIN 40 MG/0.4 ML SYRINGE SQ SCH (08:11)
[2023-01-02] MEDS: DOCUSATE 100 MG CAP PO SCH (08:12)
[2023-01-02 08:51] LABS: Basophils % (A) 0 %; Eosinophils # (A) 0.2 k/uL (0-0.7); Eosinophils % (A) 4 %; HCT 39.4 % (39.0-53.0); HGB 13.3 gm/dL (13.0-17.5); Lymphocytes # (A) 1.9 k/uL (1.0-4.8); Lymphocytes % (A) 41 %; MCH 33.7 pg (25.0-35.0); MCHC 33.7 g/dL (31.0-37.0); Mean Platelet Volume 8.5; Monocytes # (A) 0.3 k/uL (0-1.0); Monocytes % (A) 6 %; Neutrophils # (A) 2.2 k/uL (1.3-7.7); Neutrophils % (A) 47 %; Platelet Count 213 k/uL (150-450); RBC 3.94 m/uL (4.30-5.90); RDW 13.6 % (11.5-15.5); WBC 4.7 k/uL (3.8-10.6)
[2023-01-02] MEDS: hydrALAZINE HCL 20 MG/ML 1 ML VIAL IVP PRN (08:57)
[2023-01-02 09:03] LABS: ALT 59 U/L (4-49); AST 79 U/L (17-59); African American GFR (CKD) >90 (>60 ml/min/1.73 sqM); Albumin 3.3 g/dL (3.5-5.0); Alkaline Phosphatase 71 U/L (38-126); Anion Gap 8 mmol/L; Blood Urea Nitrogen 8 mg/dL (9-20); Calcium 8.3 mg/dL (8.4-10.2); Carbon Dioxide 24 mmol/L (22-30); Chloride 107 mmol/L (98-107); Glucose 149 mg/dL (74-99); Non-African American GFR(CKD) >90 (>60 ml/min/1.73 sqM); Potassium 3.3 mmol/L (3.5-5.1); Sodium 139 mmol/L (137-145); Total Bilirubin 0.8 mg/dL (0.2-1.3); Total Protein 6.1 g/dL (6.3-8.2)
[2023-01-02] MEDS ORDERED: Potassium Replacement Protocol 1 EACH MISC MISCELLANE PRN (11:35)
[2023-01-02 11:51] LABS: Glucose,Whole Blood 135 mg/dL (70-110)
[2023-01-02] MEDS: POTASSIUM CHLORIDE ER 20 MEQ TAB.ER PO SCH ×2 (12:08→12:09)
[2023-01-02 13:28] VITALS: BMI 38.0
[2023-01-02 16:43] LABS: Glucose,Whole Blood 112 mg/dL (70-110)
[2023-01-02] MEDS ORDERED: lisinopriL 10 MG TAB PO STA (16:52)
[2023-01-02] MEDS ORDERED: LISINOPRIL-HCTZ 10-12.5 MG 1 EACH TAB PO STA (16:54)
--- NOTE | 2023-01-02 17:39 | P.PN ---
Subjective Progress Note Date: 01/02/23 Yury Brewer, is a 72-year-old male who presented to [facility] emergency room with a chief complaint of slurred speech and facial drooping. Patient had an episode of slurred speech that lasted 1-2 hours at the time of admission. Apparently patient also had similar episode one day prior to admission, that also resolved within 1-2 hours. He was evaluated in the emergency room vital examination on presentation revealed a temperature of 98 pulse 58 respiration 20 blood pressure 151/65 pulse ox 98% on room air Laboratory data reveals a white blood count of 5.5 hemoglobin 13.3 platelet count 208 sodium 139 potassium 4.6 chloride 108 CO2 24 BUN 13 creatinine 0.74 AST 92 a LT 60 alkaline phosphatase 87 Testing in the emergency room revealed cardiac prominence with pleural effusions on the lateral view, computed tomography scan of the brain without contrast done in the emergency room revealed no acute intracranial process, there was nonspecific white matter changes likely secondary to chronic small of his ischemic disease. CT angiogram of the head and neck revealed no evidence of dissection of the cervical internal carotid arteries or vertebral arteries or any evidence of significant stenosis of the carotid bifurcations, no evidence of intracranial high-grade stenosis or intracranial aneurysm. Patient was admitted to medical floor for further evaluation and treatment On 12/29/2022 patient was seen and examined on the telemetry floor he is alert and oriented 3 in no apparent distress there is no fever or chills no headache or dizziness no chest pain no shortness of breath no cough no nausea or vomiting no abdominal pain no diarrhea and no urinary symptoms. There are no new episodes of speech abnormalities or facial drooping, patient still complaining of numbness in the right upper extremity, otherwise he denies any complaint. At this time awaiting MRI of the brain and further recommendation from neurology and cardiology. On 12/30/2022 patient was seen and examined on the telemetry floor he is alert and oriented 3 in no apparent distress there is no fever or chills no headache or dizziness no chest pain no shortness of breath no cough no nausea or vomiting no abdominal pain no diarrhea and no urinary symptoms there are no new episodes of slurred speech or facial drooping. At this time cardiology and neurology input reviewed, will continue to follow awaiting further testing results possible discharge to home in the next 1-2 days. On 12/31/2022 patient is alert and oriented X 3. patient reports no further neurological symptoms. denies chest pain or shortness of breath. Denies nausea vomiting or diarrhea. Denies any urinary burning or frequency. CARLOS and EEG ordered per neurology and cardiology On 01/01/2023 patient is alert and oriented 3. Patient underwent CARLOS yesterday showing no evidence of cardiac source of embolization but did show evidence of pericardial effusion. Discussed case with cardiology services at this time cardiology plan to order a limited echo and continue to monitor patient for arrhythmias. Patient denies chest pain or shortness of breath. Patient denies nausea vomiting or diarrhea. Patient denies any urinary burning or frequency. On 01/02/2023 patient was seen and examined on the telemetry floor he is alert and oriented 3 in no apparent distress there is no fever or chills no headache or dizziness no chest pain no shortness of breath no cough no nausea or vomiting no abdominal pain no diarrhea and no urinary symptoms. At this time I am waiting for echocardiogram results, and further recommendation from cardiology. Objective - Vital Signs Vital signs: Vital Signs Temp 97.6 F 01/02/23 08:00 Pulse 67 01/02/23 12:00 Resp 16 01/02/23 12:00 BP 156/63 01/02/23 12:00 Pulse Ox 96 01/02/23 12:00 FiO2 Intake & Output 01/01/23 01/02/23 01/02/23 18:59 06:59 18:59 Intake Total 880 0 Output Total 200 250 Balance 680 -250 0 Weight 127.006 kg Intake: Oral 880 0 Output: Urine 200 250 Other: Voiding Method Urinal Urinal Urinal # Voids 1 2 # Bowel Movements 1 - Exam In general patient is alert and oriented x 3 in no distress HEENT head normocephalic and atraumatic Neck is supple no JVD no goiter no lymphadenopathy no carotid bruit Chest examination is clear to auscultation no crackles no wheezing Cardiac exam reveals regular heart sounds S1 and S2 no gallops no murmurs Abdomen is soft nontender no organomegaly with normal bowel sounds Extremity exam reveals no edema no cyanosis or clubbing Neurological examination reveals no gross focal deficits - Labs CBC & Chem 7: 01/02/23 08:18 01/02/23 08:18 Labs: Abnormal Lab Results - Last 24 Hours (Table) 01/01/23 01/01/23 01/02/23 Range/Units 16:29 21:17 02:08 RBC (4.30-5.90) m/uL Potassium (3.5-5.1) mmol/L BUN (9-20) mg/dL Glucose (74-99) mg/dL POC Glucose (mg/dL) 115 H 196 H 125 H (70-110) mg/dL Calcium (8.4-10.2) mg/dL AST (17-59) U/L ALT (4-49) U/L Total Protein (6.3-8.2) g/dL Albumin (3.5-5.0) g/dL 01/02/23 01/02/23 01/02/23 Range/Units 06:09 08:18 08:18 RBC 3.94 L (4.30-5.90) m/uL Potassium 3.3 L (3.5-5.1) mmol/L BUN 8 L (9-20) mg/dL Glucose 149 H (74-99) mg/dL POC Glucose (mg/dL) 130 H (70-110) mg/dL Calcium 8.3 L (8.4-10.2) mg/dL AST 79 H (17-59) U/L ALT 59 H (4-49) U/L Total Protein 6.1 L (6.3-8.2) g/dL Albumin 3.3 L (3.5-5.0) g/dL 01/02/23 Range/Units 11:49 RBC (4.30-5.90) m/uL Potassium (3.5-5.1) mmol/L BUN (9-20) mg/dL Glucose (74-99) mg/dL POC Glucose (mg/dL) 135 H (70-110) mg/dL Calcium (8.4-10.2) mg/dL AST (17-59) U/L ALT (4-49) U/L Total Protein (6.3-8.2) g/dL Albumin (3.5-5.0) g/dL Assessment and Plan Plan: Recurrent TIA with facial drooping and slurred speech Underlying history of insulin-dependent diabetes mellitus maintained on insulin pump Underlying history of asthma Underlying history of hypertension Underlying history of hyperlipidemia Underlying history of benign prostatic hypertrophy Underlying history of gastroesophageal reflux disease Underlying history of peripheral neuropathy History of dizziness and lightheadedness with possible autonomic dysfunction Underlying history of dementia Evidence of oral candidiasis At this time patient is admitted to telemetry floor Home medications reviewed and reordered MRI of the brain requested Neurology consultation and cardiology consultation requested For DVT prophylaxis subcu Lovenox Prognosis is guarded will follow closely
--- NOTE | 2023-01-02 18:18 | P.PN ---
Subjective Progress Note Date: 01/02/23 HISTORY OF PRESENT ILLNESS: This is a 72-year-old male with a past medical history significant for moderate noncritical coronary artery disease, hypertension, hyperlipidemia, diabetes, and peripheral arterial disease. Patient follows in the office with Dr. Bhardwaj but was recently evaluated in the office by Dr. Petit secondary to PAD.. We have been asked to see the patient in consultation for recurrent TIAs. Patient examined at the bedside. Patient states he presented to the hospital for chief complaint of slurred speech and right-sided numbness. Patient states his symptoms have since resolved. He denies a previous history of TIA or CVA. Patient underwent CT of the brain which was negative for acute process. He underwent CTA which did not reveal any significant stenosis of intracranial arteries. He is scheduled to undergo MRI of the brain tomorrow. Telemetry reveals sinus mechanism. No evidence of atrial fibrillation has been noted. The patient does report having occasional palpitations at home. * EKG reveals sinus mechanism with no signs of acute ischemia * Chest xray cardiac prominence with pleural effusions on lateral view * Current home cardiac medications include aspirin 81 mg daily and Lipitor 40 mg at night * Most recent echocardiogram obtained in October 2022 revealed ejection fraction 55% trace MR * Cardiac catheterization history: March 2018 revealing moderate noncritical disease in all 3 vessels. No gradient across the aortic valve. Normal filling pressures. 12/30 MRI of the brain done today revealed no evidence of intracranial mass or acute subacute infarct. Nonspecific white matter changes likely secondary to small vessel ischemic disease. Patient states that he is still feeling like crap. He states he still having speech difficulty and not back to his normal. He states he has lightheadedness or dizziness on and off. Case reviewed with neurology an d we will proceed with CARLOS tomorrow. 12/31 Patient states he had one episode of speech difficulty since admitted. He denies chest pain, no shortness of breath. He is scheduled for CARLOS today with Dr. Petit. Heart rate has been in the 50s, blood pressure 147/83, pulse ox 96% on 2 L nasal cannula. Hemoglobin 12.3. Creatinine 0.82. 01/01 The patient is seen today in follow-up. Plan is for possible discharge home today. Patient underwent CARLOS yesterday with Dr. Petit that revealed no evidence of cardiac source of embolization. Intact interatrial atrial septum and intact left atrial appendage. No evidence of infective endocarditis. Moderate mitral regurgitation, normal biventricular dimension and systolic function. Evidence of pericardial effusion. Due to the pericardial effusion, a limited echocardiogram will be ordered prior to discharge. Patient has had no signs of atrial fibrillation. Patient has been afebrile, heart rate in the 50s, blood pressure 187/73, 01/02 Patient is noticed to be hypertensive. He received when necessary doses of hydralazine in the morning. His systolic blood pressure is in the range of 150s, diastolic in the range of 90s, he denies any chest pain chest pressure or shortness of breath. Telemetry does not show any arrhythmias PHYSICAL EXAM: VITAL SIGNS: Reviewed. GENERAL: Well-developed in no acute distress. HEENT: Head is normocephalic. Pupils are equal, round. Sclerae anicteric. Mucous membranes of the mouth are moist. Neck supple. No JVD or thyromegaly LUNGS: Respirations even and unlabored. Lungs essentially clear to auscultation bilaterally. HEART: Regular rate and rhythm. S1 and S2 heard. EXTREMITIES: Normal range of motion. No clubbing or cyanosis. Peripheral pulses intact. No lower extremity edema NEUROLOGIC: Awake and alert. Oriented x 3. ASSESSMENT: Slurred speech and right-sided numbness, possible TIA Moderate noncritical coronary artery disease, per cardiac catheterization in 2018 Hypertension Hyperlipidemia Diabetes Peripheral arterial disease PLAN: Review limited echocardiogram. No evidence of significant pericardial effusion. No evidence of atrial fibrillation on 48 hours of telemetry monitoring Continues to be hypertensive. Increase antihypertensives. Increase lisinopril to 20 mg daily, add HCTZ 12.5 mg Continue DAPT therapy and atorvastatin Patient is cleared to discharge from cardiac standpoint Objective - Vital Signs Vital signs: Vital Signs Temp 97.6 F 01/02/23 08:00 Pulse 68 01/02/23 16:00 Resp 16 01/02/23 16:00 BP 142/66 01/02/23 16:00 Pulse Ox 98 01/02/23 16:00 FiO2 Intake & Output 01/01/23 01/02/23 01/02/23 18:59 06:59 18:59 Intake Total 880 222 Output Total 200 250 Balance 680 -250 222 Weight 127.006 kg Intake: Oral 880 222 Output: Urine 200 250 Other: Voiding Method Urinal Urinal Urinal # Voids 1 2 # Bowel Movements 1 - Labs CBC & Chem 7: 01/02/23 08:18 01/02/23 08:18 Labs: Abnormal Lab Results - Last 24 Hours (Table) 01/01/23 01/02/23 01/02/23 Range/Units 21:17 02:08 06:09 RBC (4.30-5.90) m/uL Potassium (3.5-5.1) mmol/L BUN (9-20) mg/dL Glucose (74-99) mg/dL POC Glucose (mg/dL) 196 H 125 H 130 H (70-110) mg/dL Calcium (8.4-10.2) mg/dL AST (17-59) U/L ALT (4-49) U/L Total Protein (6.3-8.2) g/dL Albumin (3.5-5.0) g/dL 01/02/23 01/02/23 01/02/23 Range/Units 08:18 08:18 11:49 RBC 3.94 L (4.30-5.90) m/uL Potassium 3.3 L (3.5-5.1) mmol/L BUN 8 L (9-20) mg/dL Glucose 149 H (74-99) mg/dL POC Glucose (mg/dL) 135 H (70-110) mg/dL Calcium 8.3 L (8.4-10.2) mg/dL AST 79 H (17-59) U/L ALT 59 H (4-49) U/L Total Protein 6.1 L (6.3-8.2) g/dL Albumin 3.3 L (3.5-5.0) g/dL 01/02/23 Range/Units 16:41 RBC (4.30-5.90) m/uL Potassium (3.5-5.1) mmol/L BUN (9-20) mg/dL Glucose (74-99) mg/dL POC Glucose (mg/dL) 112 H (70-110) mg/dL Calcium (8.4-10.2) mg/dL AST (17-59) U/L ALT (4-49) U/L Total Protein (6.3-8.2) g/dL Albumin (3.5-5.0) g/dL
--- NOTE | 2023-01-02 18:56 | CA ---
Transthoracic Echo Report Name: Yury Brewer Age: 72 Gender: M : 1950 Exam Date: 01/01/2023 13:11 Exam Location: [place] Echo Ht (in): 72 Wt (lb): 280 Ordering Physician: Jennie Monterroso Attending/Referring Phys: [id number], Kriss Practice Physician Aaron Mead Procedure CPT: Indications: pericardial effusion Cardiac Hx: Technical Quality: Fair Contrast 1: Total Dose (mL): Contrast 2: Total Dose (mL): MEASUREMENTS (Male / Female) Normal Values FINDINGS Left Ventricle Right Ventricle Right Atrium Left Atrium Mitral Valve Aortic Valve Tricuspid Valve Pulmonic Valve Pericardium No definite evidence of pericardial effusion visualized. Aorta CONCLUSIONS Preserved LV systolic function Mild basal hypokinesis Prominent posterior pericardial stripe without effusion Previewed by: Dr. Javon Rocha MD (Electronically Signed) Final Date: 02 January 2023 18:54
[2023-01-02 20:26] LABS: Glucose,Whole Blood 187 mg/dL (70-110)
[2023-01-02] MEDS: Insulin Aspart (For Pump) 100 UNIT/ML VIAL SQ-PUMP SCH (20:58)
[2023-01-02] MEDS: ATORVASTATIN 40 MG TAB PO SCH (21:08)
[2023-01-02] MEDS: TAMSULOSIN 0.4 MG CAP.ER.24H PO SCH (21:08)
[2023-01-03 02:09] LABS: Glucose,Whole Blood 210 mg/dL (70-110)
[2023-01-03 04:40] VITALS: RESP 16
[2023-01-03 05:58] LABS: Glucose,Whole Blood 257 mg/dL (70-110)
[2023-01-03] MEDS: PANTOPRAZOLE 40 MG TABLET PO SCH (06:32)
[2023-01-03] MEDS: INSULIN PUMP MEAL BOLUS 1 UNIT MISC MISCELLANE SCH (06:33)
[2023-01-03] MEDS ORDERED: lisinopriL 20 MG TAB PO SCH (09:00)
[2023-01-03] MEDS ORDERED: LISINOPRIL-HCTZ 20-12.5 MG 1 EACH TAB PO SCH (09:00)
[2023-01-03] MEDS: FINASTERIDE 5 MG TAB PO SCH (09:19)
[2023-01-03] MEDS: ACETAMINOPHEN TAB 500 MG TAB PO SCH (09:19)
[2023-01-03] MEDS: MEMANTINE 5 MG TAB PO SCH (09:19)
[2023-01-03] MEDS: ASPIRIN 81 MG PO SCH (09:20)
[2023-01-03] MEDS: FLUDROCORTISONE 0.1 MG TAB PO SCH (09:20)
[2023-01-03] MEDS: DOCUSATE 100 MG CAP PO SCH (09:20)
[2023-01-03] MEDS: CLOPIDOGREL 75 MG TAB PO SCH (09:20)
[2023-01-03] MEDS: ENOXAPARIN 40 MG/0.4 ML SYRINGE SQ SCH (09:20)
[2023-01-03] MEDS: NYSTATIN 100,000 UNIT/ML SUSP 500,000 UNIT/5 ML CUP PO SCH (09:21)
[2023-01-03 10:23] VITALS: BP 173/69; PULSE 66; TEMP 97.9
--- NOTE | 2023-01-03 10:53 | P.DS ---
Providers Date of admission: 12/30/22 07:30 Expected date of discharge: 01/03/23 Attending physician: Ej Gibson Consults: 12/27/22 19:49 Consult Physician Routine Consulting Provider: Thomas Campos Consult Reason/Comments: possible tia, confusion Do you want consulting provider notified?: Yes 12/28/22 13:22 Consult Physician Routine Consulting Provider: Freddy Street Consult Reason/Comments: recurrent TIA Do you want consulting provider notified?: Yes Primary care physician: Ej Gibson Hospital Course: Discharge diagnosis Recurrent TIA with facial drooping and slurred speech Underlying history of insulin-dependent diabetes mellitus maintained on insulin pump Underlying history of asthma Underlying history of hypertension Underlying history of hyperlipidemia Underlying history of benign prostatic hypertrophy Underlying history of gastroesophageal reflux disease Underlying history of peripheral neuropathy History of dizziness and lightheadedness with possible autonomic dysfunction Underlying history of dementia Evidence of oral candidiasis Hospital course Yury Brewer, is a 72-year-old male who presented to [facility] emergency room with a chief complaint of slurred speech and facial drooping. Patient had an episode of slurred speech that lasted 1-2 hours at the time of admission. Apparently patient also had similar episode one day prior to admission, that also resolved within 1-2 hours. He was evaluated in the emergency room vital examination on presentation rev ealed a temperature of 98 pulse 58 respiration 20 blood pressure 151/65 pulse ox 98% on room air Laboratory data reveals a white blood count of 5.5 hemoglobin 13.3 platelet count 208 sodium 139 potassium 4.6 chloride 108 CO2 24 BUN 13 creatinine 0.74 AST 92 a LT 60 alkaline phosphatase 87 Testing in the emergency room revealed cardiac prominence with pleural effusions on the lateral view, computed tomography scan of the brain without contrast done in the emergency room revealed no acute intracranial process, there was nonspecific white matter changes likely secondary to chronic small of his is chemic disease. CT angiogram of the head and neck revealed no evidence of dissection of the cervical internal carotid arteries or vertebral arteries or any evidence of significant stenosis of the carotid bifurcations, no evidence of intracranial high-grade stenosis or intracranial aneurysm. Patient was admitted to medical floor for further evaluation and treatment On 12/29/2022 patient was seen and examined on the telemetry floor he is alert and oriented 3 in no apparent distress there is no fever or chills no headache or dizziness no chest pain no shortness of breath no cough no nausea or vomiting no abdominal pain no diarrhea and no urinary symptoms. There are no new episodes of speech abnormalities or facial drooping, patient still complaining of numbness in the right upper extremity, otherwise he denies any complaint. At this time awaiting MRI of the brain and further recommendation from neurology and cardiology. On 12/30/2022 patient was seen and examined on the telemetry floor he is alert and oriented 3 in no apparent distress there is no fever or chills no headache or dizziness no chest pain no shortness of breath no cough no nausea or vomiting no abdominal pain no diarrhea and no urinary symptoms there are no new episodes of slurred speech or facial drooping. At this time cardiology and neurology input reviewed, will continue to follow awaiting further testing results possible discharge to home in the next 1-2 days. On 12/31/2022 patient is alert and oriented X 3. patient reports no further neurological symptoms. denies chest pain or shortness of breath. Denies nausea vomiting or diarrhea. Denies any urinary burning or frequency. CARLOS and EEG ordered per neurology and cardiology On 01/01/2023 patient is alert and oriented 3. Patient underwent CARLOS yesterday showing no evidence of cardiac source of embolization but did show evidence of pericardial effusion. Discussed case with cardiology services at this time cardiology plan to order a limited echo and continue to monitor patient for arrhythmias. Patient denies chest pain or shortness of breath. Patient denies nausea vomiting or diarrhea. Patient denies any urinary burning or frequency. On 01/02/2023 patient was seen and examined on the telemetry floor he is alert and oriented 3 in no apparent distress there is no fever or chills no headache or dizziness no chest pain no shortness of breath no cough no nausea or vomiting no abdominal pain no diarrhea and no urinary symptoms. At this time I am waiting for echocardiogram results, and further recommendation from cardiology. On 03/05/2023 patient is alert and oriented 3. Cardiology reviewed limited echocardiogram showing no evidence of significant pericardial effusion. Antihypertensives adjusted per cardiology continue dual antiplatelet therapy and statin. Patient to follow-up PCP for further management Patient Condition at Discharge: Stable Plan - Discharge Summary Discharge Rx Participant: No New Discharge Prescriptions: New RX: Clopidogrel [Plavix] 75 mg PO DAILY 30 Days #30 tab RX: Lisinopril-Hctz 20-12.5 mg [Zestoretic 20-12.5] 1 each PO DAILY 30 Days #30 tab Continue RX: Aspirin 81 mg PO DAILY RX: Pantoprazole [Protonix] 40 mg PO BID RX: rOPINIRole HCL [Requip] 0.5 mg PO HS 30 Days #30 tablet RX: Tamsulosin [Flomax] 0.4 mg PO HS RX: Cetirizine HCl [Zyrtec] 10 mg PO DAILY RX: Memantine [Namenda] 5 mg PO BID RX: Insulin Aspart (For Pump) [NovoLOG (For Pump)] 0.01 unit SQ-PUMP CONTINUOUS RX: Atorvastatin [Lipitor] 40 mg PO HS RX: Acetaminophen [Tylenol Extra Strength] 1,000 mg PO BID RX: Finasteride [Proscar] 5 mg PO DAILY RX: Fludrocortisone Acetate 0.2 mg PO DAILY RX: Citalopram Hydrobromide [Citalopram HBr] 40 mg PO DAILY RX: Docusate [Colace] 300 mg PO DAILY Discharge Medication List RX: Aspirin 81 mg PO DAILY 10/16/13 [History] RX: Pantoprazole [Protonix] 40 mg PO BID 01/20/18 [History] RX: rOPINIRole HCL [Requip] 0.5 mg PO HS 30 Days #30 tablet 05/09/18 [Rx] RX: Tamsulosin [Flomax] 0.4 mg PO HS 11/09/18 [History] RX: Cetirizine HCl [Zyrtec] 10 mg PO DAILY 08/21/22 [History] RX: Citalopram Hydrobromide [Citalopram HBr] 40 mg PO DAILY 08/21/22 [History] RX: Fludrocortisone Acetate 0.2 mg PO DAILY 08/21/22 [History] RX: Docusate [Colace] 300 mg PO DAILY 10/09/22 [History] RX: Insulin Aspart (For Pump) [NovoLOG (For Pump)] 0.01 unit SQ-PUMP CONTINUOUS 10/09/22 [History] RX: Memantine [Namenda] 5 mg PO BID 10/09/22 [History] RX: Acetaminophen [Tylenol Extra Strength] 1,000 mg PO BID 11/14/22 [History] RX: Atorvastatin [Lipitor] 40 mg PO HS 11/14/22 [History] RX: Finasteride [Proscar] 5 mg PO DAILY 12/27/22 [History] RX: Clopidogrel [Plavix] 75 mg PO DAILY 30 Days #30 tab 01/03/23 [Rx] RX: Lisinopril-Hctz 20-12.5 mg [Zestoretic 20-12.5] 1 each PO DAILY 30 Days #30 tab 01/03/23 [Rx] Follow up Appointment(s)/Referral(s): Ej Gibson MD [Primary Care Provider] - 1-2 days Activity/Diet/Wound Care/Special Instructions: Activity as tolerated Diet heart healthy Discharge Disposition: HOME SELF-CARE
[2023-01-03 12:34] LABS: Glucose,Whole Blood 235 mg/dL (70-110)
--- NOTE | 2023-01-07 11:53 | CDI ---
Documentation Clarification Form Date: 01/01/2023 12:18:00 PM From: Anna Hedrick Phone: [phone] Admit Date: 12/30/2022 07:30:00 AM Patient Name: Yury Brewer Visit Number: [id number] Discharge Date: 01/03/2023 12:43:00 PM ATTENTION: The Clinical Documentation Specialists (CDI) and [facility] Coding Staff appreciate your assistance in clarifying documentation. Please respond to the clarification below the line at the bottom and electronically sign. The CDI & [facility] Coding staff will review the response and follow-up if needed. Please note: Queries are made part of the Legal Health Record. If you have any questions, please contact the author of this message via ITS. Dr. Thomas Campos TIA is documented 12/28 12/31, Medicine H&P and notes. Additional clarification regarding the etiology of the TIA is requested. Patient history/risk factors: 72-year-old male presents with slurred speech and facial drooping, lasting 1-2 hours. Apparently had similar episode one day prior to admission. Medical history: Dementa, IDDM type 1 with insulin pump, CAD and HTN. 12/28, H&P. Clinical indicators: 12/27: CTA, Head, Neck: 1.No evidence of dissection of the cervical internal carotid arteries or vertebral arteries or any evidence of significant stenosis at the carotid bifurcations. 2.No evidence of intracranial high-grade stenosis or intracranial aneurysm . 12/30: MRI of the brain without contrast: It is reported as no evidence of intracranial mass or acute/subacute infarct. Nonspecific white matter changes, likely secondary due to small vessel ischemic disease. 12/31:CARLOS: 1.No evidence of cardiac source of embolization 2.Intact interatrial septum an intact left atrial appendage 3.No evidence of infective endocarditis 4.Moderate mitral regurgitation 5.Normal biventricular dimension and systolic function 6. evidence of pericardial effusion Treatment: Aspirin and Plavix for 21 days then continue with Plavix, Neuro checks, Telemetry monitoring Consult: Neurology, Probable recurrent TIA. Please clarify the etiology of the TIA, if known: [ ] Small vessel ischemic disease. [ ] Sequelae of Cerebrovascular Disease [ ] Other (please specify): [ ] Etiology unknown or Unable to determine (Template Last Revised: May 2020) Etiology is unknown, unable to determine because all workup was negative. Patient does have diabetes (not well controlled, with A1c 8.3 on 01/02/2023) and could be potentially from small vessel disease, but suspected, not confirmed. Thank you, Please call for any concerns. MD LEE MenezesD
== END 2023-01-03 12:43 | disposition home or self-care (01) | DRG 69 ==
LOC: EC 16:17 → 3SCARD 19:47 → OBSVTOIN 12-30 07:30
PROVIDERS: ADMIT Internal Medicine; ATTEND Internal Medicine
PROC: B24BZZ4 Ultrasonography of Heart with Aorta, Transesophageal (ICD-10-PCS; principal; 2022-12-31 07:30)
DX: G45.9 Transient cerebral ischemic attack, unspecified (principal); B37.0 Candidal stomatitis; D68.51 Activated protein C resistance; I31.39 Other pericardial effusion (noninflammatory); R47.01 Aphasia; E10.51 Type 1 diabetes mellitus with diabetic peripheral angiopathy without gangrene; G25.81 Restless legs syndrome; Z87.891 Personal history of nicotine dependence; Z28.21 Immunization not carried out because of patient refusal; Z20.822 Contact with and (suspected) exposure to COVID-19; R29.703 NIHSS score 3; E10.43 Type 1 diabetes mellitus with diabetic autonomic (poly)neuropathy; F32.A Depression, unspecified; H91.90 Unspecified hearing loss, unspecified ear; J45.909 Unspecified asthma, uncomplicated; E10.319 Type 1 diabetes mellitus with unspecified diabetic retinopathy without macular edema; R13.10 Dysphagia, unspecified; M54.32 Sciatica, left side; M54.31 Sciatica, right side; M25.512 Pain in left shoulder; M25.511 Pain in right shoulder; K21.9 Gastro-esophageal reflux disease without esophagitis; E78.5 Hyperlipidemia, unspecified; M54.2 Cervicalgia; N40.0 Benign prostatic hyperplasia without lower urinary tract symptoms; H93.13 Tinnitus, bilateral; N18.9 Chronic kidney disease, unspecified; R29.810 Facial weakness; Z79.4 Long term (current) use of insulin; Z79.82 Long term (current) use of aspirin; Z79.899 Other long term (current) drug therapy; Z82.49 Family history of ischemic heart disease and other diseases of the circulatory system; Z82.5 Family history of asthma and other chronic lower respiratory diseases; Z86.73 Personal history of transient ischemic attack (TIA), and cerebral infarction without residual deficits; Z96.41 Presence of insulin pump (external) (internal); Z71.3 Dietary counseling and surveillance
CPT/HCPCS: 36415; 70450; 70496; 70498; 70551; 71046; 80053; 80061; 81003; 82550; 83036; 83880; 85025; 85610; 85730; 87636; 93005; 93308; 93312; 93320; 93325; 94760; 95816; 99285

== ENCOUNTER 2023-01-17 19:15 | Emergency (ER) | payer MEDICARE, OTHER ==
[2023-01-17 20:09] VITALS: TEMP 98.7
--- NOTE | 2023-01-17 20:40 | XR ---
EXAMINATION TYPE: XR chest 2V DATE OF EXAM: 01/17/2023 COMPARISON: Prior chest x-ray December 27, 2022 HISTORY: Cough and shortness of breath TECHNIQUE: Frontal and lateral views of the chest are obtained. FINDINGS: There is no suspicious new focal air space opacity, pleural effusion, or pneumothorax seen . The cardiac silhouette size is stable and within normal limits. The osseous structures are intac t. IMPRESSION: No acute pulmonary process currently.
[2023-01-17 23:04] LABS: Glucose,Whole Blood 376 mg/dL (70-110)
--- NOTE | 2023-01-17 23:24 | ED ---
General Adult HPI - General Chief complaint: Recheck/Abnormal Lab/Rx Stated complaint: SOB Time Seen by Provider: 01/17/23 23:08 Source: patient, RN notes reviewed, old records reviewed Mode of arrival: ambulatory Limitations: no limitations - History of Present Illness Initial comments: 72-year-old male with chief complaint of being sent in from urgent care for her abnormal lung sounds and elevated sugar. Patient states sugar does tend to run high. He's had no fever. No vomiting. He has an insulin pump but states states he forgets the at insulin after he eats. He denies cough. Denies fever. He was sent in for chest x-ray. - Related Data Home Medications Medication Instructions Recorded Confirmed Aspirin 81 mg PO DAILY 10/16/13 12/27/22 Pantoprazole [Protonix] 40 mg PO BID 01/20/18 12/27/22 Tamsulosin [Flomax] 0.4 mg PO HS 11/09/18 12/27/22 Cetirizine HCl [Zyrtec] 10 mg PO DAILY 08/21/22 12/27/22 Citalopram Hydrobromide 40 mg PO DAILY 08/21/22 12/27/22 [Citalopram HBr] Fludrocortisone Acetate 0.2 mg PO DAILY 08/21/22 12/27/22 Docusate [Colace] 300 mg PO DAILY 10/09/22 12/27/22 Insulin Aspart (For Pump) [NovoLOG 0.01 unit SQ-PUMP CONTINUOUS 10/09/22 12/27/22 (For Pump)] Memantine [Namenda] 5 mg PO BID 10/09/22 12/27/22 Acetaminophen [Tylenol Extra 1,000 mg PO BID 11/14/22 12/27/22 Strength] Atorvastatin [Lipitor] 40 mg PO HS 11/14/22 12/27/22 Finasteride [Proscar] 5 mg PO DAILY 12/27/22 12/27/22 Previous Rx's Medication Instructions Recorded rOPINIRole HCL [Requip] 0.5 mg PO HS 30 Days #30 tablet 05/09/18 Clopidogrel [Plavix] 75 mg PO DAILY 30 Days #30 tab 01/03/23 Lisinopril-Hctz 20-12.5 mg 1 each PO DAILY 30 Days #30 tab 01/03/23 [Zestoretic 20-12.5] Allergies Allergy/AdvReac Type Severity Reaction Status Date / Time No Known Allergies Allergy Verified 01/17/23 20:09 Review of Systems ROS Statement: Those systems with pertinent positive or pertinent negative responses have been documented in the HPI. ROS Other: All systems not noted in ROS Statement are negative. Past Medical History Past Medical History: Blood Disorder, Coronary Artery Disease (CAD), Dementia, Diabetes Mellitus, Eye Disorder, GERD/Reflux, Hearing Disorder / Deafness, Hyperlipidemia, Hypertension, Neurologic Disorder, Osteoarthritis (OA), Prostate Disorder, Renal Disease, Syncope Additional Past Medical History / Comment(s): IDDM type I with insulin pump, bilateral legs/feet/arms and hand neuropathy, chronic renal disease, difficulty swallowing, RLS, factor V, early dementia, BPH, bilateral tinnitis, R eye retinal bleeds x2, chronic low back pain with bilateral sciatica which is worse on the right side, bilateral shoulder and cervical pain, History of Any Multi-Drug Resistant Organisms: None Reported Past Surgical History: Adenoidectomy, Back Surgery, Heart Catheterization, Orthopedic Surgery, Tonsillectomy Additional Past Surgical History / Comment(s): Lumbar laminectomy, R knee cartildge surgery, bilateral carpal tunnel released, sen wrist dequevain surgery, R rotator cuff repair, L foot pins and plates, EGD, colonoscopy, R eye laser eye surgery for retinal bleeds, bilateral cataract removals/lens implants. Past Anesthesia/Blood Transfusion Reactions: Motion Sickness Past Psychological History: Depression Smoking Status: Former smoker Past Alcohol Use History: None Reported Past Drug Use History: None Reported - Past Family History Brother(s) Family Medical History: Blood Disorder, Deep Vein Thrombosis (DVT) Mother Additional Family Medical History / Comment(s): Mother had palsey Father Family Medical History: COPD, Myocardial Infarction (NM) Additional Family Medical History / Comment(s): Father of COPD/NM at the age of 72 yrs. General Exam Limitations: no limitations General appearance: alert, in no apparent distress Head exam: Present: atraumatic, normocephalic Eye exam: Present: normal appearance, PERRL ENT exam: Present: normal exam Neck exam: Present: normal inspection. Absent: tenderness, meningismus Respiratory exam: Present: normal lung sounds bilaterally. Absent: respiratory distress, wheezes, rales, rhonchi Cardiovascular Exam: Present: regular rate, normal rhythm GI/Abdominal exam: Present: soft. Absent: distended, tenderness, guarding Extremities exam: Present: normal inspection, normal capillary refill Neurological exam: Present: alert, oriented X3, CN II-XII intact. Absent: motor sensory deficit Psychiatric exam: Present: normal affect, normal mood Skin exam: Present: warm, dry Course Vital Signs 01/17/23 20:06 Temperature 98.7 F Pulse Rate 65 Respiratory 20 Rate Blood Pressure 140/67 O2 Sat by Pulse 95 Oximetry Medical Decision Making - Medical Decision Making Was pt. sent in by a medical professional or institution (, ALYSSIA, LOCKSTITCH MACHINE OPERATOR, urgent care, hospital, or [facility]...) When possible be specific @ -Sent in from urgent care to rule out pneumonia Did you speak to anyone other than the patient for history (EMS, parent, family, police, friend...)? What history was obtained from this source @ -No Did you review nursing and triage notes (agree or disagree)? Why? @ -I reviewed and agree with nursing and triage notes Were old charts reviewed (outside hosp., previous admission, EMS record, old EKG, old radiological studies, urgent care reports/EKG's, [facility] records)? Report findings @ -No old charts were reviewed Differential Diagnosis (chest pain, altered mental status, abdominal pain women, abdominal pain men, vaginal bleeding, weakness, fever, dyspnea, syncope, headache, dizziness, GI bleed, back pain, seizure, CVA, palpatations, mental health, musculoskeletal)? @ Rule out pneumonia EKG interpreted by me (3pts min.). @ -As above X-rays interpreted by me (1pt min.). @ -[Chest x-ray clear, no focal pneumonia CT interpreted by me (1pt min.). @ -None done U/S interpreted by me (1pt. min.). @ -None done What testing was considered but not performed or refused? (CT, X-rays, U/S, la bs)? Why? @ -None What meds were considered but not given or refused? Why? @ -None Did you discuss the management of the patient with other professionals (professionals i.e. ALYSSIA Garnett, LOCKSTITCH MACHINE OPERATOR, lab, RT, psych nurse, social media content manager, escrow secretary, teacher, probation officer, case liner)? Give summary @ -No Was smoking cessation discussed for >3mins.? @ -No Was critical care preformed (if so, how long)? @ -No Were there social determinants of health that impacted care today? How? (Homelessness, low income, unemployed, alcoholism, drug addiction, transportation, low edu. Level, literacy, decrease access to med. care, snf, rehab)? @ -No Was there de-escalation of care discussed even if they declined (Discuss DNR or withdrawal of care, Hospice)? DNR status @ -No What co-morbidities impacted this encounter? (DM, HTN, Smoking, COPD, CAD, Cancer, CVA, ARF, Chemo, Hep., AIDS, mental health diagnosis, sleep apnea, morbid obesity)? @ -[Diabetes Was patient admitted / discharged? Hospital course, mention meds given and route, prescriptions, significant lab abnormalities, going to OR and other pertinent info. @ 72-year-old male concern for early pneumonia. Chest x-ray clear. No fever. No cough. No dyspnea. Sugar is elevated but patient states he can increase his insulin on his insulin pump. Patient eager for discharge. at bedside also eager for discharge. Undiagnosed new problem with uncertain prognosis? @ -No Drug Therapy requiring intensive monitoring for toxicity (Heparin, Nitro, Insulin, Cardizem)? @ -No Were any procedures done? @ -No Diagnosis/symptom? @ -[Hyperglycemia Acute, or Chronic, or Acute on Chronic? @ -Acute on chronic Uncomplicated (without systemic symptoms) or Complicated (systemic symptoms)? @ -default Side effects of treatment? @ -No Exacerbation, Progression, or Severe Exacerbation? @ -No Poses a threat to life or bodily function? How? (Chest pain, [place], NM, pneumonia, PE, COPD, DKA, ARF, appy, cholecystitis, CVA, Diverticulitis, Homicidal, Suicidal, threat to staff... and all critical care pts) @ -No - Lab Data Lab Results 01/17/23 Range/Units 23:03 POC Glucose (mg/dL) 376 H (70-110) mg/dL POC Glu Skates Operator Laci Rosas Disposition Clinical Impression: Hyperglycemia Disposition: HOME SELF-CARE Condition: Fair Instructions (If sedation given, give patient instructions): Diabetic Hyperglycemia (ED) Additional Instructions: Please increase insulin administration and monitor glucose closely at home. Please drink plenty of water . Please return with any worsening or changing symptoms. Is patient prescribed a controlled substance at d/c from ED?: No Referrals: Ej Gibson MD [Primary Care Provider] - 1-2 days Time of Disposition: 23:24
[2023-01-17 23:41] VITALS: BP 154/69; PULSE 64; RESP 18
== END 2023-01-17 23:38 | disposition home or self-care (01) ==
LOC: EC 19:15
DX: E10.65 Type 1 diabetes mellitus with hyperglycemia (principal); E10.36 Type 1 diabetes mellitus with diabetic cataract; E10.22 Type 1 diabetes mellitus with diabetic chronic kidney disease; I12.9 Hypertensive chronic kidney disease with stage 1 through stage 4 chronic kidney disease, or unspecified chronic kidney disease; N18.9 Chronic kidney disease, unspecified; E78.5 Hyperlipidemia, unspecified; F32.A Depression, unspecified; K21.9 Gastro-esophageal reflux disease without esophagitis; I25.10 Atherosclerotic heart disease of native coronary artery without angina pectoris; F03.90 Unspecified dementia, unspecified severity, without behavioral disturbance, psychotic disturbance, mood disturbance, and anxiety; N40.0 Benign prostatic hyperplasia without lower urinary tract symptoms; Z79.82 Long term (current) use of aspirin; Z79.899 Other long term (current) drug therapy; Z87.891 Personal history of nicotine dependence
CPT/HCPCS: 36415; 71046; 99284

== ENCOUNTER 2023-01-28 14:23 | Inpatient (IN) | payer MEDICARE, OTHER ==
--- NOTE | 2023-01-28 14:58 | ED ---
Dizziness HPI - General Chief Complaint: Syncope Stated Complaint: syncope Time Seen by Provider: 01/28/23 14:33 Source: patient, EMS, RN notes reviewed Mode of arrival: EMS Limitations: no limitations - History of Present Illness Initial Comments: Patient is a 72-year-old male presenting to the ER via EMS with a chief complaint of a syncopal episode. Patient states while home care nurse was visiting he had syncopal episode of about 5 seconds. His nurse took his blood pressure and he reports it was 80s/50s. Patient was sent here for evaluation. Patient was last seen here on and treated for hyperglycemia. Patient states he has been having increased dizziness upon changing positions. She reports it feels like the room is spinning. Patient states he also had a fall on Friday in the bathtub. Patient states he did not hit his head or any loss of consciousness. Patient does take Plavix. He states he has multiple bruises from the incident on his right side and left ankle. Patient denies any nubness or tingling in left ankle. Patient denies, headache, double or blurry vision, chest pain/palpitations, shortness of breath, abdominal pain, urinary complaints, or peripheral edema. - Related Data Home Medications Medication Instructions Recorded Confirmed Aspirin 81 mg PO DAILY 10/16/13 12/27/22 Pantoprazole [Protonix] 40 mg PO BID 01/20/18 12/27/22 Tamsulosin [Flomax] 0.4 mg PO HS 11/09/18 12/27/22 Cetirizine HCl [Zyrtec] 10 mg PO DAILY 08/21/22 12/27/22 Citalopram Hydrobromide 40 mg PO DAILY 08/21/22 12/27/22 [Citalopram HBr] Fludrocortisone Acetate 0.2 mg PO DAILY 08/21/22 12/27/22 Docusate [Colace] 300 mg PO DAILY 10/09/22 12/27/22 Insulin Aspart (For Pump) [NovoLOG 0.01 unit SQ-PUMP CONTINUOUS 10/09/22 12/27/22 (For Pump)] Memantine [Namenda] 5 mg PO BID 10/09/22 12/27/22 Acetaminophen [Tylenol Extra 1,000 mg PO BID 11/14/22 12/27/22 Strength] Atorvastatin [Lipitor] 40 mg PO HS 11/14/22 12/27/22 Finasteride [Proscar] 5 mg PO DAILY 12/27/22 12/27/22 Previous Rx's Medication Instructions Recorded rOPINIRole HCL [Requip] 0.5 mg PO HS 30 Days #30 tablet 05/09/18 Clopidogrel [Plavix] 75 mg PO DAILY 30 Days #30 tab 01/03/23 Lisinopril-Hctz 20-12.5 mg 1 each PO DAILY 30 Days #30 tab 01/03/23 [Zestoretic 20-12.5] Allergies Allergy/AdvReac Type Severity Reaction Status Date / Time No Known Allergies Allergy Verified 01/28/23 14:39 Review of Systems ROS Statement: Those systems with pertinent positive or pertinent negative responses have been documented in the HPI. ROS Other: All systems not noted in ROS Statement are negative. Past Medical History Past Medical History: Blood Disorder, Coronary Artery Disease (CAD), Dementia, Diabetes Mellitus, Eye Disorder, GERD/Reflux, Hearing Disorder / Deafness, Hyperlipidemia, Hypertension, Neurologic Disorder, Osteoarthritis (OA), Prostate Disorder, Renal Disease, Syncope Additional Past Medical History / Comment(s): IDDM type I with insulin pump, bilateral legs/feet/arms and hand neuropathy, chronic renal disease, difficulty swallowing, RLS, factor V, early dementia, BPH, bilateral tinnitis, R eye retinal bleeds x2, chronic low back pain with bilateral sciatica which is worse on the right side, bilateral shoulder and cervical pain, History of Any Multi-Drug Resistant Organisms: None Reported Past Surgical History: Adenoidectomy, Back Surgery, Heart Catheterization, Orthopedic Surgery, Tonsillectomy Additional Past Surgical History / Comment(s): Lumbar laminectomy, R knee cartildge surgery, bilateral carpal tunnel released, sen wrist dequevain surgery, R rotator cuff repair, L foot pins and plates, EGD, colonoscopy, R eye laser eye surgery for retinal bleeds, bilateral cataract removals/lens implants. Past Anesthesia/Blood Transfusion Reactions: Motion Sickness Past Psychological History: Depression Smoking Status: Former smoker Past Alcohol Use History: None Reported Past Drug Use History: None Reported - Past Family History Brother(s) Family Medical History: Blood Disorder, Deep Vein Thrombosis (DVT) Mother Additional Family Medical History / Comment(s): Mother had palsey Father Family Medical History: COPD, Myocardial Infarction (CT) Additional Family Medical History / Comment(s): Father of COPD/CT at the age of 72 yrs. General Exam Limitations: no limitations General appearance: alert, in no apparent distress Head exam: Present: atraumatic, normocephalic, normal inspection Eye exam: Present: normal appearance, PERRL, EOMI. Absent: scleral icterus, conjunctival injection, periorbital swelling Respiratory exam: Present: normal lung sounds bilaterally. Absent: respiratory distress, wheezes, rales, rhonchi, stridor Cardiovascular Exam: Present: regular rate, normal rhythm, normal heart sounds. Absent: systolic murmur, diastolic murmur, rubs, gallop, clicks GI/Abdominal exam: Present: soft, normal bowel sounds. Absent: distended, tenderness, guarding, rebound, rigid Extremities exam: Present: other (Ecchymosis noted to left ankle. 2+ dorsalis pedis pulse) Back exam: Present: other (Healing bruise noted on right lateral back) Neurological exam: Present: alert, oriented X3, CN II-XII intact Psychiatric exam: Present: normal affect, normal mood Skin exam: Present: warm, dry, intact, normal color. Absent: rash Course Vital Signs 01/28/23 01/28/23 14:29 17:22 Temperature 98.3 F 98 F Pulse Rate 73 65 Respiratory 18 18 Rate Blood Pressure 164/72 181/91 O2 Sat by Pulse 99 97 Oximetry Medical Decision Making - Medical Decision Making Was pt. sent in by a medical professional or institution (, PA, MARKETING COMMUNITY LIAISON, urgent care, hospital, or intermediate...) When possible be specific @ -No Did you speak to anyone other than the patient for history (EMS, parent, family, police, friend...)? What history was obtained from this source @ - Did you review nursing and triage notes (agree or disagree)? Why? @ -I reviewed and agree with nursing and triage notes Were old charts reviewed (outside hosp., previous admission, EMS record, old EKG, old radiological studies, urgent care reports/EKG's, intermediate records)? Report findings @ -[Yes, I reviewed old charts from ER visit on . Differential Diagnosis (chest pain, altered mental status, abdominal pain women, abdominal pain men, vaginal bleeding, weakness, fever, dyspnea, syncope, headache, dizziness, GI bleed, back pain, seizure, CVA, palpatations, mental health, musculoskeletal)? @ -Differential Syncope: Valvular disease, hypertrophic cardiomyopathy, pulmonary embolism, tamponade, tachycardia, bradycardia, CT, hypovolemia, hemorrhage, dissection, anemia, intracranial hemorrhage, seizure, hypoglycemia, carbon monoxide poisoning, this is not meant to be an all-inclusive list. EKG interpreted by me (3pts min.). @ -As above X-rays interpreted by me (1pt min.). @ -Left ankle x-ray shows no acute fracture or dislocation. Chest XR was negative for acute cardiopulmonary processes. CT interpreted by me (1pt min.). @ -CT of brain and C-spine was negative for intracranial hemorrhage/mass effect/fractures. U/S interpreted by me (1pt. min.). @ -None done What testing was considered but not performed or refused? (CT, X-rays, U/S, labs)? Why? @ -None What meds were considered but not given or refused? Why? @ -None Did you discuss the management of the patient with other professionals (professionals i.e. , PA, MARKETING COMMUNITY LIAISON, lab, RT, psych nurse, psychologist social, brew house supervisor, teacher, staff weapons officer, case planner)? Give summary @ -Yes, I spoke with Dr. Paige batista for admission. Was smoking cessation discussed for >3mins.? @ -No Was critical care preformed (if so, how long)? @ -No Were there social determinants of health that impacted care today? How? (Homelessness, low income, unemployed, alcoholism, drug addiction, transportation, low edu. Level, literacy, decrease access to med. care, half-way, rehab)? @ -No Was there de-escalation of care discussed even if they declined (Discuss DNR or withdrawal of care, Hospice)? DNR status @ -No What co-morbidities impacted this encounter? (DM, HTN, Smoking, COPD, CAD, Cancer, CVA, ARF, Chemo, Hep., AIDS, mental health diagnosis, sleep apnea, morbid obesity)? @ -Diabetes mellitus Was patient admitted / discharged? Hospital course, mention meds given and route, prescriptions, significant lab abnormalities, going to OR and other pertinent info. @ -Admitted. Labs obtained in the ER are significant for a blood glucose of 516 upon arrival, acetone positive, blood pH 7.43, trace ketones and urinalysis. Patient received 1.5 L of IV fluids and 10 units of IV insulin. Upon repeat blood glucose checked it was 393. Patient's was not bedside and she stated that he had been taken off of his insulin pump by his PCP. He was started on NovoLog at meal times and [place]ba. Per , his sugars at home have been hard to control with the new medication. Due to the patient's recent fall CT was obtained which was negative for any intracranial hemorrhages/mass effect/fractures. Patient was also complaining of left ankle pain due to the fall. Left ankle x-ray showed no acute fractures or dislocations. Chest x-ray was negative for acute cardiopulmonary processes. Patient states he has not taken any of his medications this morning. Patient received 10 mg IV hydralazine for blood pressure control. Patient will be admitted to Dr. Gibson. Patient expressed understanding with care plan. Undiagnosed new problem with uncertain prognosis? @ -No Drug Therapy requiring intensive monitoring for toxicity (Heparin, Nitro, Insulin, Cardizem)? @ -No Were any procedures done? @ -No Diagnosis/symptom? @ -Hyperglycemia Acute, or Chronic, or Acute on Chronic? @ -Acute on chronic Uncomplicated (without systemic symptoms) or Complicated (systemic symptoms)? @ -Complicated Side effects of treatment? @ -No Exacerbation, Progression, or Severe Exacerbation? @ -No Poses a threat to life or bodily function? How? (Chest pain, USA, CT, pneumonia, PE, COPD, DKA, ARF, appy, cholecystitis, CVA, Diverticulitis, Homicidal, Suicidal, threat to staff... and all critical care pts) @ -No - Lab Data Result diagrams: 01/28/23 14:52 01/28/23 14:52 Lab Results 01/28/23 01/28/23 01/28/23 Range/Units 14:52 14:52 14:52 WBC 8.0 (3.8-10.6) k/uL RBC 4.00 L (4.30-5.90) m/uL Hgb 13.3 (13.0-17.5) gm/dL Hct 39.4 (39.0-53.0) % MCV 98.4 (80.0-100.0) fL MCH 33.3 (25.0-35.0) pg MCHC 33.8 (31.0-37.0) g/dL RDW 12.9 (11.5-15.5) % Plt Count 177 (150-450) k/uL MPV 9.4 Neutrophils % 66 % Lymphocytes % 25 % Monocytes % 6 % Eosinophils % 1 % Basophils % 0 % Neutrophils # 5.3 (1.3-7.7) k/uL Lymphocytes # 2.0 (1.0-4.8) k/uL Monocytes # 0.5 (0-1.0) k/uL Eosinophils # 0.1 (0-0.7) k/uL Basophils # 0.0 (0-0.2) k/uL PT 11.4 (10.0-12.5) sec INR 1.0 (<1.2) APTT 20.0 L (22.0-30.0) sec VBG pH (7.31-7.41) VBG pCO2 (37-51) mmHg VBG HCO3 (24-28) mmol/L Sodium 133 L (137-145) mmol/L Potassium 3.8 (3.5-5.1) mmol/L Chloride 96 L (98-107) mmol/L Carbon Dioxide 27 (22-30) mmol/L Anion Gap 10 mmol/L BUN 19 (9-20) mg/dL Creatinine 1.19 (0.66-1.25) mg/dL Est GFR (CKD-EPI)AfAm 71 (>60 ml/min/1.73 sqM) Est GFR (CKD-EPI)NonAf 61 (>60 ml/min/1.73 sqM) Glucose 532 H* (74-99) mg/dL POC Glucose (mg/dL) (70-110) mg/dL POC Glu Research Statistician ID Calcium 8.5 (8.4-10.2) mg/dL Magnesium 1.1 L (1.6-2.3) mg/dL Total Bilirubin 0.7 (0.2-1.3) mg/dL AST 36 (17-59) U/L ALT 36 (4-49) U/L Alkaline Phosphatase 64 (38-126) U/L Troponin I (0.000-0.034) ng/mL Total Protein 6.3 (6.3-8.2) g/dL Albumin 3.4 L (3.5-5.0) g/dL Urine Color Urine Appearance (Clear) Urine pH (5.0-8.0) Ur Specific [place] (1.001-1.035) Urine Protein (Negative) Urine Glucose (UA) (Negative) Urine Ketones (Negative) Urine Blood (Negative) Urine Nitrite (Negative) Urine Bilirubin (Negative) Urine Urobilinogen (<2.0) mg/dL Ur Leukocyte Esterase (Negative) Acetone, Qual (Negative) 01/28/23 01/28/23 01/28/23 Range/Units 14:52 14:52 14:57 WBC (3.8-10.6) k/uL RBC (4.30-5.90) m/uL Hgb (13.0-17.5) gm/dL Hct (39.0-53.0) % MCV (80.0-100.0) fL MCH (25.0-35.0) pg MCHC (31.0-37.0) g/dL RDW (11.5-15.5) % Plt Count (150-450) k/uL MPV Neutrophils % % Lymphocytes % % Monocytes % % Eosinophils % % Basophils % % Neutrophils # (1.3-7.7) k/uL Lymphocytes # (1.0-4.8) k/uL Monocytes # (0-1.0) k/uL Eosinophils # (0-0.7) k/uL Basophils # (0-0.2) k/uL PT (10.0-12.5) sec INR (<1.2) APTT (22.0-30.0) sec VBG pH (7.31-7.41) VBG pCO2 (37-51) mmHg VBG HCO3 (24-28) mmol/L Sodium (137-145) mmol/L Potassium (3.5-5.1) mmol/L Chloride (98-107) mmol/L Carbon Dioxide (22-30) mmol/L Anion Gap mmol/L BUN (9-20) mg/dL Creatinine (0.66-1.25) mg/dL Est GFR (CKD-EPI)AfAm (>60 ml/min/1.73 sqM) Est GFR (CKD-EPI)NonAf (>60 ml/min/1.73 sqM) Glucose (74-99) mg/dL POC Glucose (mg/dL) 516 H (70-110) mg/dL POC Glu Research Statistician ID Frandy Coppola Calcium (8.4-10.2) mg/dL Magnesium (1.6-2.3) mg/dL Total Bilirubin (0.2-1.3) mg/dL AST (17-59) U/L ALT (4-49) U/L Alkaline Phosphatase (38-126) U/L Troponin I 0.019 (0.000-0.034) ng/mL Total Protein (6.3-8.2) g/dL Albumin (3.5-5.0) g/dL Urine Color Urine Appearance (Clear) Urine pH (5.0-8.0) Ur Specific [place] (1.001-1.035) Urine Protein (Negative) Urine Glucose (UA) (Negative) Urine Ketones (Negative) Urine Blood (Negative) Urine Nitrite (Negative) Urine Bilirubin (Negative) Urine Urobilinogen (<2.0) mg/dL Ur Leukocyte Esterase (Negative) Acetone, Qual Positive (Negative) 01/28/23 01/28/23 01/28/23 Range/Units 15:10 15:52 17:00 WBC (3.8-10.6) k/uL RBC (4.30-5.90) m/uL Hgb (13.0-17.5) gm/dL Hct (39.0-53.0) % MCV (80.0-100.0) fL MCH (25.0-35.0) pg MCHC (31.0-37.0) g/dL RDW (11.5-15.5) % Plt Count (150-450) k/uL MPV Neutrophils % % Lymphocytes % % Monocytes % % Eosinophils % % Basophils % % Neutrophils # (1.3-7.7) k/uL Lymphocytes # (1.0-4.8) k/uL Monocytes # (0-1.0) k/uL Eosinophils # (0-0.7) k/uL Basophils # (0-0.2) k/uL PT (10.0-12.5) sec INR (<1.2) APTT (22.0-30.0) sec VBG pH 7.43 H (7.31-7.41) VBG pCO2 41 (37-51) mmHg VBG HCO3 27 (24-28) mmol/L Sodium (137-145) mmol/L Potassium (3.5-5.1) mmol/L Chloride (98-107) mmol/L Carbon Dioxide (22-30) mmol/L Anion Gap mmol/L BUN (9-20) mg/dL Creatinine (0.66-1.25) mg/dL Est GFR (CKD-EPI)AfAm (>60 ml/min/1.73 sqM) Est GFR (CKD-EPI)NonAf (>60 ml/min/1.73 sqM) Glucose (74-99) mg/dL POC Glucose (mg/dL) 518 H (70-110) mg/dL POC Glu Research Statistician ID Frandy Coppola Calcium (8.4-10.2) mg/dL Magnesium (1.6-2.3) mg/dL Total Bilirubin (0.2-1.3) mg/dL AST (17-59) U/L ALT (4-49) U/L Alkaline Phosphatase (38-126) U/L Troponin I (0.000-0.034) ng/mL Total Protein (6.3-8.2) g/dL Albumin (3.5-5.0) g/dL Urine Color Colorless Urine Appearance Clear (Clear) Urine pH 6.0 (5.0-8.0) Ur Specific [place] 1.021 (1.001-1.035) Urine Protein Negative (Negative) Urine Glucose (UA) 4+ H (Negative) Urine Ketones Trace H (Negative) Urine Blood Negative (Negative) Urine Nitrite Negative (Negative) Urine Bilirubin Negative (Negative) Urine Urobilinogen <2.0 (<2.0) mg/dL Ur Leukocyte Esterase Negative (Negative) Acetone, Qual (Negative) 01/28/23 Range/Units 17:20 WBC (3.8-10.6) k/uL RBC (4.30-5.90) m/uL Hgb (13.0-17.5) gm/dL Hct (39.0-53.0) % MCV (80.0-100.0) fL MCH (25.0-35.0) pg MCHC (31.0-37.0) g/dL RDW (11.5-15.5) % Plt Count (150-450) k/uL MPV Neutrophils % % Lymphocytes % % Monocytes % % Eosinophils % % Basophils % % Neutrophils # (1.3-7.7) k/uL Lymphocytes # (1.0-4.8) k/uL Monocytes # (0-1.0) k/uL Eosinophils # (0-0.7) k/uL Basophils # (0-0.2) k/uL PT (10.0-12.5) sec INR (<1.2) APTT (22.0-30.0) sec VBG pH (7.31-7.41) VBG pCO2 (37-51) mmHg VBG HCO3 (24-28) mmol/L Sodium (137-145) mmol/L Potassium (3.5-5.1) mmol/L Chloride (98-107) mmol/L Carbon Dioxide (22-30) mmol/L Anion Gap mmol/L BUN (9-20) mg/dL Creatinine (0.66-1.25) mg/dL Est GFR (CKD-EPI)AfAm (>60 ml/min/1.73 sqM) Est GFR (CKD-EPI)NonAf (>60 ml/min/1.73 sqM) Glucose (74-99) mg/dL POC Glucose (mg/dL) 393 H (70-110) mg/dL POC Glu Research Statistician ID Frandy Coppola Calcium (8.4-10.2) mg/dL Magnesium (1.6-2.3) mg/dL Total Bilirubin (0.2-1.3) mg/dL AST (17-59) U/L ALT (4-49) U/L Alkaline Phosphatase (38-126) U/L Troponin I (0.000-0.034) ng/mL Total Protein (6.3-8.2) g/dL Albumin (3.5-5.0) g/dL Urine Color Urine Appearance (Clear) Urine pH (5.0-8.0) Ur Specific [place] (1.001-1.035) Urine Protein (Negative) Urine Glucose (UA) (Negative) Urine Ketones (Negative) Urine Blood (Negative) Urine Nitrite (Negative) Urine Bilirubin (Negative) Urine Urobilinogen (<2.0) mg/dL Ur Leukocyte Esterase (Negative) Acetone, Qual (Negative) - EKG Data -: EKG Interpreted by Me EKG Comments: EKG taken at 14:57. Shows a normal sinus rhythm with no acute T-wave abnormalities noted. Ventricular rate 70, AK interval 97, QRS duration 102, QT/QTc 430/450. - Radiology Data Radiology results: report reviewed, image reviewed Disposition Clinical Impression: Hyperglycemia Disposition: ADMITTED IP TO THIS HOSP Condition: Stable Referrals: Ej Gibson MD [Primary Care Provider] - 1-2 days Time of Disposition: 18:32
[2023-01-28 14:59] LABS: Glucose,Whole Blood 516 mg/dL (70-110)
[2023-01-28] MEDS ORDERED: SODIUM CHLORIDE 0.9% 1,000 ML IV STA (15:03)
[2023-01-28] MEDS ORDERED: INSULIN REGULAR 100 UNIT/ML VIAL (IV) IV ONE (15:04)
[2023-01-28 15:21] LABS: Basophils % (A) 0 %; Eosinophils # (A) 0.1 k/uL (0-0.7); Eosinophils % (A) 1 %; HCT 39.4 % (39.0-53.0); HGB 13.3 gm/dL (13.0-17.5); Lymphocytes % (A) 25 %; MCH 33.3 pg (25.0-35.0); MCHC 33.8 g/dL (31.0-37.0); MCV 98.4 fL (80.0-100.0); Mean Platelet Volume 9.4; Monocytes # (A) 0.5 k/uL (0-1.0); Monocytes % (A) 6 %; Neutrophils # (A) 5.3 k/uL (1.3-7.7); Neutrophils % (A) 66 %; Platelet Count 177 k/uL (150-450); RDW 12.9 % (11.5-15.5)
[2023-01-28 15:37] LABS: ALT 36 U/L (4-49); AST 36 U/L (17-59); African American GFR (CKD) 71 (>60 ml/min/1.73 sqM); Albumin 3.4 g/dL (3.5-5.0); Alkaline Phosphatase 64 U/L (38-126); Anion Gap 10 mmol/L; Blood Urea Nitrogen 19 mg/dL (9-20); Calcium 8.5 mg/dL (8.4-10.2); Carbon Dioxide 27 mmol/L (22-30); Chloride 96 mmol/L (98-107); Magnesium 1.1 mg/dL (1.6-2.3); Non-African American GFR(CKD) 61 (>60 ml/min/1.73 sqM); Potassium 3.8 mmol/L (3.5-5.1); Sodium 133 mmol/L (137-145); Total Bilirubin 0.7 mg/dL (0.2-1.3); Total Protein 6.3 g/dL (6.3-8.2)
[2023-01-28 15:45] LABS: Glucose 532 mg/dL (74-99); Prothrombin Time 11.4 sec (10.0-12.5)
[2023-01-28 15:55] LABS: Glucose,Whole Blood 518 mg/dL (70-110)
--- NOTE | 2023-01-28 15:58 | XR ---
EXAMINATION TYPE: XR chest 2V DATE OF EXAM: 01/28/2023 3:49 PM COMPARISON: Chest radiographs from 01/17/2023 TECHNIQUE: XR chest 2V Frontal and lateral views of the chest. CLINICAL INDICATION:Male, 72 years old with history of syncope; FINDINGS: Lungs/Pleura: There is no evidence of pleural effusion, focal consolidation, or pneumothorax. Pulmonary vascularity: Unremarkable. Heart/mediastinum: Cardiomediastinal silhouette is prominent in size. Musculoskeletal: No acute osseous pathology. IMPRESSION: No acute cardiopulmonary disease/process.
--- NOTE | 2023-01-28 16:00 | XR ---
EXAMINATION TYPE: XR ankle complete LT DATE OF EXAM: 01/28/2023 COMPARISON: Left foot radiograph 03/06/2016, CT left foot 09/13/2016 HISTORY: Pain, fall TECHNIQUE: 3 views of the left ankle are submitted for evaluation. FINDINGS: There is no evidence for fracture or dislocation. Ankle mortise is intact. Mild soft tissue swelling of the ankle. There is partial visualization of fixation plate involving the foot. IMPRESSION: 1. No evidence for acute fracture. 2. Mild soft tissue swelling of the ankle.
[2023-01-28 17:07] LABS: VBG PH 7.43 (7.31-7.41)
--- NOTE | 2023-01-28 17:15 | CT ---
EXAMINATION TYPE: CT brain cspine wo con CT DLP: 1601.7 mGycm, Automated exposure control for dose reduction was used. DATE OF EXAM: 01/28/2023 5:05 PM COMPARISON: 6 12/27/2022 CLINICAL INDICATION:Male, 72 years old with history of pain; syncope and weakness TECHNIQUE: Brain: Multiple axial CT images of the brain were obtained without IV contrast. Cspine: Axial CT images from the skull base to the inferior aspect of T2 we obtained without intraven ous contrast. Coronal and sagittal reformatted images were also reviewed. FINDINGS: Brain: Extra-axial spaces: No abnormal extra-axial fluid collections. Ventricular system: Dilatation in proportion to cerebral atrophy. Cerebral parenchyma: Cerebral atrophy. No acute intraparenchymal hemorrhage or mass effect. The maria -white junction is well differentiated. Scattered hypoattenuating areas are seen within the white mat ter. Cerebellum: Unremarkable. Mass effect: No evidence of midline shift. Intracranial vasculature: Atherosclerotic calcifications of the intracranial vessels. Soft tissues: Normal. Calvarium/osseous structures: No depressed skull fracture. Paranasal sinuses and mastoid air cells: Clear. Visualized orbits: Orbital contents are intact. Cervical spine: Fracture: None. Osseous structures: Unremarkable Vertebral alignment: Within normal limits. Spinal canal/Neural Foramina: No evidence of significant spinal canal narrowing. No evidence for sign ificant neural foraminal stenosis. Neck soft tissues: Prevertebral soft tissues are within normal limits. IMPRESSION: 1. No acute intracranial process. 2. Nonspecific white matter changes, likely secondary to chronic small vessel ischemic disease. 3. No evidence of cervical spine fracture. 4. Mild multilevel degenerative disc disease.
[2023-01-28 17:18] LABS: Appearance,Urine Clear (Clear); Bilirubin,Urine Negative (Negative); Blood,Urine Negative (Negative); Color,Urine Colorless; Glucose,Urine (UA) 4+ (Negative); Ketones,Urine Trace (Negative); Leukocyte Esterase,Urine Negative (Negative); Nitrite,Urine Negative (Negative); Protein,Urine Negative (Negative); Specific Gravity,Urine 1.021 (1.001-1.035); Urobilinogen,Urine <2.0 mg/dL (<2.0)
[2023-01-28 17:21] LABS: Glucose,Whole Blood 393 mg/dL (70-110)
[2023-01-28] MEDS ORDERED: NALOXONE 0.4 MG/ML 1 ML VIAL IV PRN (18:08)
[2023-01-28] MEDS: SODIUM CHLORIDE 0.9% 1,000 ML IV SCH (18:25)
[2023-01-28] MEDS ORDERED: hydrALAZINE HCL 20 MG/ML 1 ML VIAL IVP STA (18:38)
[2023-01-28 20:27] LABS: Glucose,Whole Blood 305 mg/dL (70-110)
[2023-01-28] MEDS: ATORVASTATIN 40 MG TAB PO SCH (21:48)
[2023-01-28] MEDS: MEMANTINE 5 MG TAB PO SCH (21:48)
[2023-01-28] MEDS: PANTOPRAZOLE 40 MG TABLET PO SCH (21:48)
[2023-01-28 22:21] LABS: Glucose,Whole Blood 289 mg/dL (70-110)
[2023-01-29] MEDS ORDERED: hydrALAZINE HCL 20 MG/ML 1 ML VIAL IVP ONE (01:30)
[2023-01-29] MEDS: ACETAMINOPHEN TAB 325 MG TAB PO PRN ×2 (06:39→21:13)
[2023-01-29 06:46] LABS: Glucose,Whole Blood 285 mg/dL (70-110)
[2023-01-29 06:46] LABS: Glucose,Whole Blood 280 mg/dL (70-110)
[2023-01-29] MEDS: PANTOPRAZOLE 40 MG TABLET PO SCH ×2 (07:28→18:50)
[2023-01-29] MEDS: SODIUM CHLORIDE 0.9% 1,000 ML IV SCH (08:44)
[2023-01-29] MEDS: MEMANTINE 5 MG TAB PO SCH ×2 (08:53→21:14)
[2023-01-29] MEDS: ASPIRIN 81 MG PO SCH (08:53)
[2023-01-29] MEDS: CLOPIDOGREL 75 MG TAB PO SCH (08:53)
[2023-01-29] MEDS: CITALOPRAM HYDROBROMIDE 20 MG TAB PO SCH (08:53)
[2023-01-29] MEDS: LISINOPRIL-HCTZ 20-12.5 MG 1 EACH TAB PO SCH (10:51)
[2023-01-29 10:57] LABS: Glucose,Whole Blood 298 mg/dL (70-110)
[2023-01-29] MEDS: INSULIN ASPART (NovoLOG) 100 UNIT/ML VIAL SQ SCH ×3 (11:05→21:14)
[2023-01-29] MEDS ORDERED: Magnesium Replacement Protocol 1 EACH MISC MISCELLANE PRN (14:34)
[2023-01-29] MEDS: MAGNESIUM SULFATE-D5W PMX 1 GM in DEXTROSE/WATER 1 100ML.BAG IVPB SCH ×3 (14:50→19:29)
--- NOTE | 2023-01-29 16:34 | P.HPIM ---
History of Present Illness H&P Date: 01/29/23 Yury Brewer, is a 72-year-old male who presented to [facility] emergency room after having a brief episode of syncope, glucose level on presentation was in excess of 500, patient was admitted to telemetry floor for further evaluation, He was evaluated in the emergency room vital examination on presentation revealed a temperature of 98.3 pulse 73 respiration 18 blood pressure 164/72 pulse ox 99% on room air Laboratory data reveals a white blood count of 8.2 hemoglobin 13.3 platelet count 177 sodium 133 potassium 3.8 chloride 96 CO2 27 BUN 19 creatinine 1.19 glucose level 532 with positive acetones Testing in the emergency room revealed EKG revealed sinus rhythm with short NH interval, chest x-ray revealed no acute cardiopulmonary process, left ankle x- ray revealed no acute fracture, computed tomography scan of the head and neck revealed no acute intracranial process no evidence of cervical spine fracture. Patient was admitted to medical floor for further evaluation and treatment Past medical history is significant for patient has a known history of insulin-dependent diabetes mellitus he has an insulin pump but likely not functioning well he has been seen by Dr. Acharya, and a replacement pump has been ordered for him. Past Medical History Past Medical History: Blood Disorder, Coronary Artery Disease (CAD), Dementia, Diabetes Mellitus, Eye Disorder, GERD/Reflux, Hearing Disorder / Deafness, Hyperlipidemia, Hypertension, Neurologic Disorder, Osteoarthritis (OA), Prostate Disorder, Renal Disease, Syncope Additional Past Medical History / Comment(s): IDDM type I with insulin pump, bilateral legs/feet/arms and hand neuropathy, chronic renal disease, difficulty swallowing, RLS, factor V, early dementia, BPH, bilateral tinnitis, R eye retinal bleeds x2, chronic low back pain with bilateral sciatica which is worse on the right side, bilateral shoulder and cervical pain, possible TIAs (01/13) History of Any Multi-Drug Resistant Organisms: None Reported Past Surgical History: Adenoidectomy, Back Surgery, Heart Catheterization, Orthopedic Surgery, Tonsillectomy Additional Past Surgical History / Comment(s): Lumbar laminectomy, R knee cartildge surgery, bilateral carpal tunnel released, sen wrist dequevain surger y, R rotator cuff repair, L foot pins and plates, EGD, colonoscopy, R eye laser eye surgery for retinal bleeds, bilateral cataract removals/lens implants, L arm broke- did not operate on yet Past Anesthesia/Blood Transfusion Reactions: Motion Sickness Past Psychological History: Depression Additional Psychological History / Comment(s): Pt resides with his spouse and their adult son. Pt uses a walker prn. He drives. He is currently managing his own medications but admits this is getting more difficult. Smoking Status: Former smoker Past Alcohol Use History: None Reported Additional Past Alcohol Use History / Comment(s): Pt started smoking in 1962 and quit in 1987 Past Drug Use History: None Reported - Past Family History Brother(s) Family Medical History: Blood Disorder, Deep Vein Thrombosis (DVT) Mother Additional Family Medical History / Comment(s): Mother had palsey Father Family Medical History: COPD, Myocardial Infarction ([place]) Additional Family Medical History / Comment(s): Father of COPD/[place] at the age of 72 yrs. Medications and Allergies Home Medications Medication Instructions Recorded Confirmed Type Aspirin 81 mg PO DAILY 10/16/13 01/28/23 History Pantoprazole [Protonix] 40 mg PO BID 01/20/18 01/28/23 History rOPINIRole HCL [Requip] 0.5 mg PO HS 30 Days #30 tablet 05/09/18 01/28/23 Rx Tamsulosin [Flomax] 0.4 mg PO HS 11/09/18 01/28/23 History Cetirizine HCl [Zyrtec] 10 mg PO DAILY 08/21/22 01/28/23 History Citalopram Hydrobromide 40 mg PO DAILY 08/21/22 01/28/23 History [Citalopram HBr] Fludrocortisone Acetate 0.2 mg PO DAILY 08/21/22 01/28/23 History Docusate [Colace] 300 mg PO DAILY 10/09/22 01/28/23 History Memantine [Namenda] 5 mg PO BID 10/09/22 01/28/23 History Acetaminophen [Tylenol Extra 1,000 mg PO BID 11/14/22 01/28/23 History Strength] Atorvastatin [Lipitor] 40 mg PO HS 11/14/22 01/28/23 History Finasteride [Proscar] 5 mg PO DAILY 12/27/22 01/28/23 History Clopidogrel [Plavix] 75 mg PO DAILY 30 Days #30 tab 01/03/23 01/28/23 Rx Lisinopril-Hctz 20-12.5 mg 1 tab PO DAILY 01/28/23 01/28/23 History [Zestoretic 20-12.5] INSULIN ASPART (NovoLOG) [NovoLOG See Protocol SQ ACHS 01/29/23 01/29/23 History (formulary)] Insulin Degludec [Tresiba 22 units SQ DAILY 01/29/23 01/29/23 History Flextouch U-100 Pen] Allergies Allergy/AdvReac Type Severity Reaction Status Date / Time No Known Allergies Allergy Verified 01/28/23 14:39 Physical Exam Vitals: Vital Signs Temp Pulse Pulse Resp BP BP BP 01/29/23 08:47 94/54 150/76 01/29/23 08:00 72 18 150/82 01/29/23 06:34 97.9 F 63 16 171/66 01/29/23 03:59 139/66 01/29/23 01:30 97.9 F 71 16 187/77 01/28/23 21:27 168/75 01/28/23 18:49 63 18 158/67 01/28/23 17:22 98 F 65 18 181/91 Pulse Ox 01/29/23 08:47 01/29/23 08:00 97 01/29/23 06:34 97 01/29/23 03:59 01/29/23 01:30 96 01/28/23 21:27 01/28/23 18:49 98 01/28/23 17:22 97 In general patient is alert and oriented ?-3 in no distress HEENT head normocephalic and atraumatic Neck is supple no JVD no goiter no lymphadenopathy no carotid bruit Chest examination is clear to auscultation no crackles no wheezing Cardiac exam reveals regular heart sounds S1 and S2 no gallops no murmurs Abdomen is soft nontender no organomegaly with normal bowel sounds Extremity exam reveals no edema no cyanosis or clubbing Neurological examination reveals no gross focal deficits Results CBC & Chem 7: 01/28/23 14:52 01/28/23 14:52 Labs: Abnormal Lab Results - Last 24 Hours (Table) 01/28/23 01/28/23 01/28/23 Range/Units 14:52 14:52 15:10 APTT 20.0 L (22.0-30.0) sec VBG pH (7.31-7.41) Sodium 133 L (137-145) mmol/L Chloride 96 L (98-107) mmol/L Glucose 532 H* (74-99) mg/dL POC Glucose (mg/dL) (70-110) mg/dL Magnesium 1.1 L (1.6-2.3) mg/dL Albumin 3.4 L (3.5-5.0) g/dL Urine Glucose (UA) 4+ H (Negative) Urine Ketones Trace H (Negative) 01/28/23 01/28/23 01/28/23 Range/Units 15:52 17:00 17:20 APTT (22.0-30.0) sec VBG pH 7.43 H (7.31-7.41) Sodium (137-145) mmol/L Chloride (98-107) mmol/L Glucose (74-99) mg/dL POC Glucose (mg/dL) 518 H 393 H (70-110) mg/dL Magnesium (1.6-2.3) mg/dL Albumin (3.5-5.0) g/dL Urine Glucose (UA) (Negative) Urine Ketones (Negative) 01/28/23 01/28/23 01/29/23 Range/Units 20:26 22:19 00:55 APTT (22.0-30.0) sec VBG pH (7.31-7.41) Sodium (137-145) mmol/L Chloride (98-107) mmol/L Glucose (74-99) mg/dL POC Glucose (mg/dL) 305 H 289 H 285 H (70-110) mg/dL Magnesium (1.6-2.3) mg/dL Albumin (3.5-5.0) g/dL Urine Glucose (UA) (Negative) Urine Ketones (Negative) 01/29/23 01/29/23 Range/Units 06:44 10:55 APTT (22.0-30.0) sec VBG pH (7.31-7.41) Sodium (137-145) mmol/L Chloride (98-107) mmol/L Glucose (74-99) mg/dL POC Glucose (mg/dL) 280 H 298 H (70-110) mg/dL Magnesium (1.6-2.3) mg/dL Albumin (3.5-5.0) g/dL Urine Glucose (UA) (Negative) Urine Ketones (Negative) Thrombosis Risk Factor Assmnt - Choose All That Apply Any of the Below Risk Factors Present?: No Other Risk Factors: Yes Each Risk Factor Represents 2 Points: Age 61-74 years Thrombosis Risk Factor Assessment Total Risk Factor Score: 2 Thrombosis Risk Factor Assessment Level: Low Risk Assessment and Plan Plan: Syncopal episode Severe hyperglycemia Diabetic ketoacidosis Underlying history of hypertension Underlying history of hyperlipidemia Underlying history of BPH Underlying history of dementia Underlying history of peripheral neuropathy At this time patient was seen and examined Home medications reviewed and reordered Currently patient is a off insulin pump and will be placed on Levemir 22 units daily and insulin NovoLog to sliding scale before meals cardiology consult requested in regard to syncope.
[2023-01-29 18:47] LABS: Glucose,Whole Blood 326 mg/dL (70-110)
[2023-01-29 21:05] LABS: Glucose,Whole Blood 282 mg/dL (70-110)
[2023-01-29] MEDS: ATORVASTATIN 40 MG TAB PO SCH (21:13)
[2023-01-29] MEDS: ENOXAPARIN 40 MG/0.4 ML SYRINGE SQ SCH (21:14)
[2023-01-30 05:31] LABS: Glucose,Whole Blood 177 mg/dL (70-110)
[2023-01-30] MEDS: INSULIN DETEMIR (LEVEMIR) 100 UNIT/ML SYR SQ SCH (06:48)
[2023-01-30] MEDS: INSULIN ASPART (NovoLOG) 100 UNIT/ML VIAL SQ SCH ×4 (06:49→21:53)
[2023-01-30] MEDS: SODIUM CHLORIDE 0.9% 1,000 ML IV SCH (06:50)
[2023-01-30] MEDS: PANTOPRAZOLE 40 MG TABLET PO SCH ×2 (08:10→16:31)
[2023-01-30] MEDS: CITALOPRAM HYDROBROMIDE 20 MG TAB PO SCH (08:10)
[2023-01-30] MEDS: ASPIRIN 81 MG PO SCH (08:10)
[2023-01-30] MEDS: CLOPIDOGREL 75 MG TAB PO SCH (08:10)
[2023-01-30] MEDS: MEMANTINE 5 MG TAB PO SCH ×2 (08:10→21:53)
[2023-01-30] MEDS: ENOXAPARIN 40 MG/0.4 ML SYRINGE SQ SCH (08:11)
[2023-01-30] MEDS: LISINOPRIL-HCTZ 20-12.5 MG 1 EACH TAB PO SCH ×2 (08:11→10:38)
--- NOTE | 2023-01-30 10:21 | P.CRDCN ---
History of Present Illness History of present illness: HISTORY OF PRESENT ILLNESS: This is a 72-year-old male with a past medical history significant for diabetes, hypertension, hyperlipidemia, noncritical coronary artery disease, peripheral arterial disease, TIA, syncope, and former nicotine dependence. Patient follows in the office with Dr. Bhardwaj and also Dr. Petit for his PAD. We have been asked to see the patient in consultation for syncope. Patient examined at the bedside. Patient states yesterday he was at home and was walking after using the bathroom. He states that he sat down in his chair. He reports feeling a little bit dizzy. He states he then passed out and fell into a basket of clothes. He states he was only out for a few seconds. He denied having any chest pain or pressure. He denied any shortness of breath. The patient does report a history of syncope. He states he has been instructed in the past to change positions slowly which she states usually helps. The patient was found to have positive orthostatic blood pressures on admission with a systolic blood pressure of 150 dropping to 94 upon standing. Repeat orthostatic blood pressures this morning remained positive. He is currently not on telemetry monitoring. Additionally, the patient was found to be extremely hyperglycemic upon admission with a blood sugar greater than 500. The patient does state he has been having difficulty at home controlling his blood sugars and they have been pretty labile. * EKG reveals sinus mechanism with no signs of acute ischemia. * Chest xray negative for acute process * Current home cardiac medications include aspirin 81 mg daily, Lipitor 40 mg at night, Plavix 75 mg daily, lisinopril-hydrochlorothiazide 20 mg12.5 mg daily * Most recent echocardiogram obtained in December 2022 revealing preserved LV systolic function, mild basal hypokinesis, no pericardial effusion. * Patient underwent CARLOS and December 2022 with no evidence of cardiac source of embolization, intact intra-atrial septum, no evidence of infective endocarditis, moderate mitral regurgitation, normal biventricular dimension and systolic function. * Cardiac catheterization history: March 2018 revealing moderate noncritical disease in all 3 vessels. No gradient across aortic valve. Normal filling pressures. REVIEW OF SYSTEMS: At the time of my exam: CONSTITUTIONAL: Denies fever or chills. HEENT: Denies blurred vision, vision changes, or eye pain. Denies hemoptysis CARDIOVASCULAR: Denies chest pain. Denies orthopnea. Denies PND. Denies palpitations RESPIRATORY: Denies shortness of breath. GASTROINTESTINAL: Denies abdominal pain. Denies nausea or vomiting. HEMATOLOGIC: Denies bleeding disorders. GENITOURINARY: Denies any blood in urine. SKIN: Denies pruitis. Denies rash. PHYSICAL EXAM: VITAL SIGNS: Reviewed. GENERAL: Well-developed in no acute distress. HEENT: Head is normocephalic. Pupils are equal, round. Sclerae anicteric. Mucous membranes of the mouth are moist. Neck supple. No JVD or thyromegaly LUNGS: Respirations even and unlabored. Lungs essentially clear to auscultation bilaterally. HEART: Regular rate and rhythm. S1 and S2 heard. ABDOMEN: Soft. Nondistended. Nontender. EXTREMITIES: Normal range of motion. No clubbing or cyanosis. Peripheral pulses intact. No lower extremity edema NEUROLOGIC: Awake and alert. Oriented x 3. ASSESSMENT: Syncope Orthostatic hypotension Diabetes, uncontrolled, blood sugars on admission greater than 500 Noncritical coronary artery disease, per cardiac catheterization 2019 Peripheral arterial disease History of TIA History of syncope Former nicotine dependence PLAN: Continue home cardiac medications Add Midodrine 5mg TID Continue to monitor orthostatic blood pressures Begin telemetry monitoring to assess for any arrhythmias Recommend tight glucose control Further recommendations pending patient's course Nurse practitioner note has been reviewed by physician. Signing provider agrees with the documented findings, assessment, and plan of care. Past Medical History Past Medical History: Blood Disorder, Coronary Artery Disease (CAD), Dementia, Diabetes Mellitus, Eye Disorder, GERD/Reflux, Hearing Disorder / Deafness, Hyperlipidemia, Hypertension, Neurologic Disorder, Osteoarthritis (OA), Prostate Disorder, Renal Disease, Syncope Additional Past Medical History / Comment(s): IDDM type I with insulin pump, bilateral legs/feet/arms and hand neuropathy, chronic renal disease, difficulty swallowing, RLS, factor V, early dementia, BPH, bilateral tinnitis, R eye retinal bleeds x2, chronic low back pain with bilateral sciatica which is worse on the right side, bilateral shoulder and cervical pain, possible TIAs (01/13) History of Any Multi-Drug Resistant Organisms: None Reported Past Surgical History: Adenoidectomy, Back Surgery, Heart Catheterization, Orthopedic Surgery, Tonsillectomy Additional Past Surgical History / Comment(s): Lumbar laminectomy, R knee cart ildge surgery, bilateral carpal tunnel released, sen wrist dequevain surgery, R rotator cuff repair, L foot pins and plates, EGD, colonoscopy, R eye laser eye surgery for retinal bleeds, bilateral cataract removals/lens implants, L arm broke- did not operate on yet Past Anesthesia/Blood Transfusion Reactions: Motion Sickness Past Psychological History: Depression Additional Psychological History / Comment(s): Pt resides with his spouse and their adult son. Pt uses a walker prn. He drives. He is currently managing hi s own medications but admits this is getting more difficult. Smoking Status: Former smoker Past Alcohol Use History: None Reported Additional Past Alcohol Use History / Comment(s): Pt started smoking in 1962 and quit in 1987 Past Drug Use History: None Reported - Past Family History Brother(s) Family Medical History: Blood Disorder, Deep Vein Thrombosis (DVT) Mother Additional Family Medical History / Comment(s): Mother had palsey Father Family Medical History: COPD, Myocardial Infarction ([place]) Additional Family Medical History / Comment(s): Father of COPD/[place] at the age of 72 yrs. Medications and Allergies Home Medications Medication Instructions Recorded Confirmed Type Aspirin 81 mg PO DAILY 10/16/13 01/28/23 History Pantoprazole [Protonix] 40 mg PO BID 01/20/18 01/28/23 History rOPINIRole HCL [Requip] 0.5 mg PO HS 30 Days #30 tablet 05/09/18 01/28/23 Rx Tamsulosin [Flomax] 0.4 mg PO HS 11/09/18 01/28/23 History Cetirizine HCl [Zyrtec] 10 mg PO DAILY 08/21/22 01/28/23 History Citalopram Hydrobromide 40 mg PO DAILY 08/21/22 01/28/23 History [Citalopram HBr] Fludrocortisone Acetate 0.2 mg PO DAILY 08/21/22 01/28/23 History Docusate [Colace] 300 mg PO DAILY 10/09/22 01/28/23 History Memantine [Namenda] 5 mg PO BID 10/09/22 01/28/23 History Acetaminophen [Tylenol Extra 1,000 mg PO BID 11/14/22 01/28/23 History Strength] Atorvastatin [Lipitor] 40 mg PO HS 11/14/22 01/28/23 History Finasteride [Proscar] 5 mg PO DAILY 12/27/22 01/28/23 History Clopidogrel [Plavix] 75 mg PO DAILY 30 Days #30 tab 01/03/23 01/28/23 Rx Lisinopril-Hctz 20-12.5 mg 1 tab PO DAILY 01/28/23 01/28/23 History [Zestoretic 20-12.5] INSULIN ASPART (NovoLOG) [NovoLOG See Protocol SQ ACHS 01/29/23 01/29/23 History (formulary)] Insulin Degludec [Tresiba 22 units SQ DAILY 01/29/23 01/29/23 History Flextouch U-100 Pen] Allergies Allergy/AdvReac Type Severity Reaction Status Date / Time No Known Allergies Allergy Verified 01/28/23 14:39 Physical Exam Vitals: Vital Signs Temp Pulse Resp BP BP BP BP 01/30/23 08:19 76 119/63 99/62 184/80 01/30/23 07:42 97.7 F 63 19 01/30/23 02:00 98.3 F 60 16 149/74 01/29/23 19:32 98 F 72 16 BP Pulse Ox 01/30/23 08:19 01/30/23 07:42 178/72 98 01/30/23 02:00 100 01/29/23 19:32 112/52 98 Intake and Output 01/29/23 01/30/23 01/30/23 22:59 06:59 14:59 Other: Voiding Method Urinal Results 01/28/23 14:52 01/28/23 14:52 Current Medications Generic Name Dose Route Start Last Admin Trade Name Phiq PRN Reason Stop Dose Admin Acetaminophen 650 mg 01/28/23 18:08 01/29/23 21:13 Acetaminophen Tab 325 Mg Tab PO 650 mg Q6HR PRN Administration Mild Pain or Fever > 100.5 Aspirin 81 mg 01/29/23 09:00 01/30/23 08:10 Aspirin 81 Mg PO 81 mg DAILY MILLY Administration Atorvastatin Calcium 40 mg 01/28/23 21:00 01/29/23 21:13 Atorvastatin 40 Mg Tab PO 40 mg HS MILLY Administration Citalopram Hydrobromide 40 mg 01/29/23 09:00 01/30/23 08:10 Citalopram Hydrobromide 20 Mg Tab PO 40 mg DAILY MILLY Administration Clopidogrel Bisulfate 75 mg 01/29/23 09:00 01/30/23 08:10 Clopidogrel 75 Mg Tab PO 75 mg DAILY MILLY Administration Enoxaparin Sodium 40 mg 01/29/23 18:00 01/30/23 08:11 Enoxaparin 40 Mg/0.4 Ml Syringe SQ 40 mg DAILY MILLY Administration Lisinopril/HCTZ 1 each 01/29/23 09:00 01/29/23 10:51 Lisinopril-Hctz 20-12.5 Mg 1 Each Tab PO 1 each DAILY MILLY Administration Sodium Chloride 1,000 mls @ 75 mls/hr 01/28/23 18:15 01/30/23 06:50 Saline 0.9% IV 75 mls/hr .[id number] MILLY Administration Insulin Aspart 0 unit 01/29/23 12:30 01/30/23 06:49 Insulin Aspart (Novolog) 100 Unit/Ml Vial SQ 2 unit ACHS MILLY Administration Protocol Insulin Detemir 22 unit 01/30/23 07:00 01/30/23 06:48 Insulin Detemir (Levemir) 100 Unit/Ml Syr SQ 22 unit DAILY@0700 MILLY Administration Memantine 5 mg 01/28/23 21:00 01/30/23 08:10 Memantine 5 Mg Tab PO 5 mg BID MILLY Administration Midodrine 5 mg 01/30/23 12:30 Midodrine 5 Mg Tab PO AC-TID MILLY Miscellaneous Information 1 each 01/29/23 14:34 Magnesium Replacement Protocol 1 Each Misc MISCELLANE DAILY PRN Per Protocol Protocol Naloxone HCl 0.2 mg 01/28/23 18:08 Naloxone 0.4 Mg/Ml 1 Ml Vial IV Q2M PRN Opioid Reversal Pantoprazole Sodium 40 mg 01/28/23 21:00 01/30/23 08:10 Pantoprazole 40 Mg Tablet PO 40 mg AC-BID MILLY Administration Ropinirole HCl 0.5 mg 01/28/23 21:00 01/29/23 21:19 Ropinirole Hcl 0.25 Mg Tab PO 0.5 mg HS MILLY Administration Intake and Output 01/29/23 01/30/23 01/30/23 22:59 06:59 14:59 Other: Voiding Method Urinal 01/28/23 14:52 01/28/23 14:52
[2023-01-30] MEDS: MIDODRINE 5 MG TAB PO SCH ×2 (10:38→16:31)
[2023-01-30 11:44] LABS: Glucose,Whole Blood 293 mg/dL (70-110)
[2023-01-30 11:49] LABS: Basophils # (A) 0.02 X 10*3/uL (0.00-0.10); Basophils % (A) 0.3 %; Eosinophils # (A) 0.25 X 10*3/uL (0.04-0.35); Eosinophils % (A) 4.4 %; HCT 37.6 % (39.6-50.0); HGB 12.8 g/dL (13.0-17.0); Lymphocytes # (A) 2.68 X 10*3/uL (0.90-5.00); Lymphocytes % (A) 46.8 %; MCH 32.1 pg (27.0-32.0); MCV 94.2 FL (80.0-97.0); Mean Platelet Volume 11.8 FL (9.5-12.2); Monocytes # (A) 0.49 X 10*3/uL (0.20-1.00); Monocytes % (A) 8.6 %; NRBC Per 100 WBC 0 X 10*3/uL (0.00-0.01); Neutrophils # (A) 2.28 X 10*3/uL (1.80-7.70); Neutrophils % (A) 39.7 %; Platelet Count 142 X 10*3/uL (140-440); RBC 3.99 X 10*6/uL (4.40-5.60); RDW 12.8 % (11.5-14.5); WBC 5.73 X 10*3/uL (4.50-10.00)
[2023-01-30 11:55] LABS: ALT 36 U/L (10-49); AST 33 U/L (14-35); Albumin 3.5 g/dL (3.8-4.9); Albumin/Globulin Ratio 1.46 Ratio (1.60-3.17); Alkaline Phosphatase 55 U/L (41-126); Blood Urea Nitrogen 9.9 mg/dL (9.0-27.0); Calcium 8.7 mg/dL (8.7-10.3); Carbon Dioxide 28.2 mmol/L (21.6-31.8); Chloride 104 mmol/L (96-109); Globulin 2.4 g/dL (1.6-3.3); Glucose 224 mg/dL (70-110); Magnesium 1.8 mg/dL (1.5-2.4); Potassium 4.5 mmol/L (3.5-5.5); Sodium 143 mmol/L (135-145); Total Bilirubin 0.5 mg/dL (0.3-1.2); Total Protein 5.9 g/dL (6.2-8.2)
[2023-01-30 16:27] LABS: Glucose,Whole Blood 326 mg/dL (70-110)
[2023-01-30 20:23] VITALS: RESP 20
[2023-01-30 21:11] LABS: Glucose,Whole Blood 180 mg/dL (70-110)
[2023-01-30] MEDS: ATORVASTATIN 40 MG TAB PO SCH (21:53)
[2023-01-31] MEDS: SODIUM CHLORIDE 0.9% 1,000 ML IV SCH ×2 (00:41→06:45)
[2023-01-31 06:25] LABS: Glucose,Whole Blood 216 mg/dL (70-110)
[2023-01-31] MEDS: INSULIN ASPART (NovoLOG) 100 UNIT/ML VIAL SQ SCH ×2 (06:45→12:50)
[2023-01-31] MEDS: INSULIN DETEMIR (LEVEMIR) 100 UNIT/ML SYR SQ SCH (06:45)
[2023-01-31 09:14] VITALS: PULSE 69; TEMP 97.9
[2023-01-31] MEDS: MIDODRINE 5 MG TAB PO SCH ×2 (10:03→12:37)
[2023-01-31] MEDS: CITALOPRAM HYDROBROMIDE 20 MG TAB PO SCH (10:04)
[2023-01-31] MEDS: ENOXAPARIN 40 MG/0.4 ML SYRINGE SQ SCH (10:04)
[2023-01-31] MEDS: CLOPIDOGREL 75 MG TAB PO SCH (10:04)
[2023-01-31] MEDS: LISINOPRIL-HCTZ 20-12.5 MG 1 EACH TAB PO SCH (10:05)
[2023-01-31] MEDS: PANTOPRAZOLE 40 MG TABLET PO SCH (10:05)
[2023-01-31] MEDS: ASPIRIN 81 MG PO SCH (10:05)
[2023-01-31] MEDS: MEMANTINE 5 MG TAB PO SCH (10:05)
--- NOTE | 2023-01-31 10:27 | P.PN ---
Subjective HISTORY OF PRESENT ILLNESS: This is a 72-year-old male with a past medical history significant for diabetes, hypertension, hyperlipidemia, noncritical coronary artery disease, peripheral arterial disease, TIA, syncope, and former nicotine dependence. Patient follows in the office with Dr. Bhardwaj and also Dr. Petit for his PAD. We have been asked to see the patient in consultation for syncope. Patient examined at the bedside. Patient states yesterday he was at home and was walking after using the bathroom. He states that he sat down in his chair. He reports feeling a little bit dizzy. He states he then passed out and fell into a basket of clothes. He states he was only out for a few seconds. He denied having any chest pain or pressure. He denied any shortness of breath. The patient does report a history of syncope. He states he has been instructed in the past to change positions slowly which she states usually helps. The patient was found to have positive orthostatic blood pressures on admission with a systolic blood pressure of 150 dropping to 94 upon standing. Repeat orthostatic blood pressures this morning remained positive. He is currently not on telemetry monitoring. Additionally, the patient was found to be extremely hyperglycemic upon admission with a blood sugar greater than 500. The patient does state he has been having difficulty at home controlling his blood sugars and they have been pretty labile. * EKG reveals sinus mechanism with no signs of acute ischemia. * Chest xray negative for acute process * Current home cardiac medications include aspirin 81 mg daily, Lipitor 40 mg at night, Plavix 75 mg daily, lisinopril-hydrochlorothiazide 20 mg12.5 mg daily * Most recent echocardiogram obtained in December 2022 revealing preserved LV systolic function, mild basal hypokinesis, no pericardial effusion. * Patient underwent CARLOS and December 2022 with no evidence of cardiac source of embolization, intact intra-atrial septum, no evidence of infective endocarditis, moderate mitral regurgitation, normal biventricular dimension and systolic function. * Cardiac catheterization history: March 2018 revealing moderate noncritical disease in all 3 vessels. No gradient across aortic valve. Normal filling pressures. 01/31/2023 Patient examined this morning at the bedside. Patient denies chest pain or pressure. He denies shortness of breath. Patient states when he is up ambulating to the bathroom he is feeling better with less dizziness. Resting blood pressure this morning 154/74. Orthostatic blood pressures have not been obtained yet this morning. PHYSICAL EXAM: VITAL SIGNS: Reviewed. GENERAL: Well-developed in no acute distress. HEENT: Head is normocephalic. Pupils are equal, round. Sclerae anicteric. Mucous membranes of the mouth are moist. Neck supple. No JVD or thyromegaly LUNGS: Respirations even and unlabored. Lungs essentially clear to auscultation bilaterally. HEART: Regular rate and rhythm. S1 and S2 heard. ABDOMEN: Soft. Nondistended. Nontender. EXTREMITIES: Normal range of motion. No clubbing or cyanosis. Peripheral pulses intact. No lower extremity edema NEUROLOGIC: Awake and alert. Oriented x 3. ASSESSMENT: Syncope Orthostatic hypotension Diabetes, uncontrolled, blood sugars on admission greater than 500 Noncritical coronary artery disease, per cardiac catheterization 2019 Peripheral arterial disease History of TIA History of syncope Former nicotine dependence PLAN: Continue home cardiac medications Continue to monitor orthostatic blood pressures. Nursing to obtain orthostatics this morning She is currently stable for discharge from a cardiac perspective Nurse practitioner note has been reviewed by physician. Signing provider agrees with the documented findings, assessment, and plan of care. Objective - Vital Signs Vital signs: Vital Signs Temp 97.9 F 01/31/23 07:59 Pulse 69 01/31/23 07:59 Resp 20 01/31/23 07:59 BP 154/74 01/31/23 07:59 Pulse Ox 98 01/31/23 07:59 FiO2 Intake & Output 01/30/23 01/31/23 01/31/23 18:59 06:59 18:59 Output Total 500 200 Balance -500 -200 Output: Urine 500 200 Other: # Voids 3 - Labs CBC & Chem 7: 01/30/23 06:59 01/30/23 06:59 Labs: Abnormal Lab Results - Last 24 Hours (Table) 01/30/23 01/30/23 01/30/23 Range/Units 06:59 06:59 11:43 RBC 3.99 L (4.40-5.60) X 10*6/uL Hgb 12.8 L (13.0-17.0) g/dL Hct 37.6 L (39.6-50.0) % MCH 32.1 H (27.0-32.0) pg BUN/Creatinine Ratio 11.00 L (12.00-20.00) Ratio Glucose 224 H (70-110) mg/dL POC Glucose (mg/dL) 293 H (70-110) mg/dL Total Protein 5.9 L (6.2-8.2) g/dL Albumin 3.5 L (3.8-4.9) g/dL Albumin/Globulin Ratio 1.46 L (1.60-3.17) Ratio 01/30/23 01/30/23 01/31/23 Range/Units 16:26 21:09 06:23 RBC (4.40-5.60) X 10*6/uL Hgb (13.0-17.0) g/dL Hct (39.6-50.0) % MCH (27.0-32.0) pg BUN/Creatinine Ratio (12.00-20.00) Ratio Glucose (70-110) mg/dL POC Glucose (mg/dL) 326 H 180 H 216 H (70-110) mg/dL Total Protein (6.2-8.2) g/dL Albumin (3.8-4.9) g/dL Albumin/Globulin Ratio (1.60-3.17) Ratio
[2023-01-31 11:05] LABS: Glucose,Whole Blood 270 mg/dL (70-110)
[2023-01-31 11:05] LABS: Basophils # (A) 0.02 X 10*3/uL (0.00-0.10); Basophils % (A) 0.3 %; Eosinophils # (A) 0.22 X 10*3/uL (0.04-0.35); Eosinophils % (A) 3.7 %; HGB 12.6 g/dL (13.0-17.0); Lymphocytes # (A) 2.43 X 10*3/uL (0.90-5.00); Lymphocytes % (A) 40.6 %; MCH 31.7 pg (27.0-32.0); MCHC 34.1 g/dL (32.0-37.0); MCV 93.2 FL (80.0-97.0); Monocytes # (A) 0.44 X 10*3/uL (0.20-1.00); Monocytes % (A) 7.4 %; NRBC Per 100 WBC 0 X 10*3/uL (0.00-0.01); Neutrophils # (A) 2.84 X 10*3/uL (1.80-7.70); Neutrophils % (A) 47.5 %; Platelet Count 145 X 10*3/uL (140-440); RBC 3.97 X 10*6/uL (4.40-5.60); RDW 12.8 % (11.5-14.5); WBC 5.98 X 10*3/uL (4.50-10.00)
[2023-01-31 11:17] LABS: ALT 32 U/L (10-49); AST 36 U/L (14-35); Albumin 3.3 g/dL (3.8-4.9); Albumin/Globulin Ratio 1.38 Ratio (1.60-3.17); Alkaline Phosphatase 54 U/L (41-126); BUN/Creat Ratio 9.33 Ratio (12.00-20.00); Blood Urea Nitrogen 8.4 mg/dL (9.0-27.0); Calcium 8.4 mg/dL (8.7-10.3); Carbon Dioxide 24.8 mmol/L (21.6-31.8); Chloride 106 mmol/L (96-109); Globulin 2.4 g/dL (1.6-3.3); Glucose 249 mg/dL (70-110); Potassium 3.7 mmol/L (3.5-5.5); Sodium 140 mmol/L (135-145); Total Bilirubin 0.5 mg/dL (0.3-1.2); Total Protein 5.7 g/dL (6.2-8.2)
--- NOTE | 2023-01-31 11:17 | P.DS ---
Providers Date of admission: 01/28/23 19:40 Expected date of discharge: 01/31/23 Attending physician: Ej Gibson Consults: 01/29/23 15:33 Consult Physician Routine Consulting Provider: Freddy Street Consult Reason/Comments: syncope Do you want consulting provider notified?: Yes Primary care physician: Ej Gibson [facility] Course: Discharge diagnosis Syncopal episode Severe hyperglycemia Diabetic ketoacidosis Underlying history of hypertension Underlying history of hyperlipidemia Underlying history of BPH Underlying history of dementia Underlying history of peripheral neuropathy Hospital course Yury Brewer, is a 72-year-old male who presented to [facility] emergency room after having a brief episode of syncope, glucose level on presentation was in excess of 500, patient was admitted to telemetry floor for further evaluation, He was evaluated in the emergency room vital examination on presentation revealed a temperature of 98.3 pulse 73 respiration 18 blood pressure 164/72 pulse ox 99% on room air Laboratory data reveals a white blood count of 8.2 hemoglobin 13.3 platelet count 177 sodium 133 potassium 3.8 chloride 96 CO2 27 BUN 19 creatinine 1.19 glucose level 532 with positive acetones Testing in the emergency room revealed EKG revealed sinus rhythm with short HI interval, chest x-ray revealed no acute cardiopulmonary process, left ankle x- ray revealed no acute fracture, computed tomography scan of the head and neck revealed no acute intracranial process no evidence of cervical spine fracture. Patient was admitted to medical floor for further evaluation and treatment Past medical history is significant for patient has a known history of insulin- dependent diabetes mellitus he has an insulin pump but likely not functioning well he has been seen by Dr. Acharya, and a replacement pump has been ordered for him. On 01/31/2023 patient is alert and oriented 3. Blood sugars improved. Patient cleared by cardiology services. Patient is to not go back on insulin pump until follow-up with endocrinology. Patient to resume long-acting dose of 22 units and NovoLog sliding scale. Patient verbalized understanding. Patient denies chest pain or shortness of breath. Patient denies nausea vomiting or diarrhea. Patient denies any urinary burning or frequency Patient Condition at Discharge: Stable Plan - Discharge Summary Discharge Rx Participant: No New Discharge Prescriptions: New Midodrine [ProAmatine] 5 mg PO AC-TID 30 Days #90 tab Continue Aspirin 81 mg PO DAILY Pantoprazole [Protonix] 40 mg PO BID rOPINIRole HCL [Requip] 0.5 mg PO HS 30 Days #30 tablet Tamsulosin [Flomax] 0.4 mg PO HS Cetirizine HCl [Zyrtec] 10 mg PO DAILY Memantine [Namenda] 5 mg PO BID Atorvastatin [Lipitor] 40 mg PO HS Acetaminophen [Tylenol Extra Strength] 1,000 mg PO BID Finasteride [Proscar] 5 mg PO DAILY Lisinopril-Hctz 20-12.5 mg [Zestoretic 20-12.5] 1 tab PO DAILY INSULIN ASPART (NovoLOG) [NovoLOG (formulary)] See Protocol SQ ACHS #1 pen Insulin Degludec [Tresiba Flextouch U-100 Pen] 22 units SQ DAILY #1 pen Fludrocortisone Acetate 0.2 mg PO DAILY Citalopram Hydrobromide [Citalopram HBr] 40 mg PO DAILY Docusate [Colace] 300 mg PO DAILY Clopidogrel [Plavix] 75 mg PO DAILY 30 Days #30 tab Discharge Medication List Aspirin 81 mg PO DAILY 10/16/13 [History] Pantoprazole [Protonix] 40 mg PO BID 01/20/18 [History] rOPINIRole HCL [Requip] 0.5 mg PO HS 30 Days #30 tablet 05/09/18 [Rx] Tamsulosin [Flomax] 0.4 mg PO HS 11/09/18 [History] Cetirizine HCl [Zyrtec] 10 mg PO DAILY 08/21/22 [History] Citalopram Hydrobromide [Citalopram HBr] 40 mg PO DAILY 08/21/22 [History] Fludrocortisone Acetate 0.2 mg PO DAILY 08/21/22 [History] Docusate [Colace] 300 mg PO DAILY 10/09/22 [History] Memantine [Namenda] 5 mg PO BID 10/09/22 [History] Acetaminophen [Tylenol Extra Strength] 1,000 mg PO BID 11/14/22 [History] Atorvastatin [Lipitor] 40 mg PO HS 11/14/22 [History] Finasteride [Proscar] 5 mg PO DAILY 12/27/22 [History] Clopidogrel [Plavix] 75 mg PO DAILY 30 Days #30 tab 01/03/23 [Rx] Lisinopril-Hctz 20-12.5 mg [Zestoretic 20-12.5] 1 tab PO DAILY 01/28/23 [History] INSULIN ASPART (NovoLOG) [NovoLOG (formulary)] See Protocol SQ ACHS #1 pen 01/31/23 [Rx] Insulin Degludec [Tresiba Flextouch U-100 Pen] 22 units SQ DAILY #1 pen 01/31/23 [Rx] Midodrine [ProAmatine] 5 mg PO AC-TID 30 Days #90 tab 01/31/23 [Rx] Follow up Appointment(s)/Referral(s): Librado Bhardwaj MD [STAFF PHYSICIAN] - 3 Weeks Ej Gibson MD [Primary Care Provider] - 1-2 days Kellee Acharya [Family Provider] - 1 Week Discharge Disposition: HOME SELF-CARE
[2023-01-31 12:06] VITALS: BP 142/71
--- NOTE | 2023-02-18 06:10 | CDI ---
Documentation Clarification Form Date: 02/18/23 From: Ila Meyers Admit Date: 01/28/2023 07:40:00 PM Patient Name: Yury Brewer Visit Number: [id number] Discharge Date: 01/31/2023 01:58:00 PM ATTENTION: The Clinical Documentation Specialists (CDI) and [facility] Coding Staff appreciate your assistance in clarifying documentation. Please respond to the clarification below the line at the bottom and electronically sign. The CDI & [facility] Coding staff will review the response and follow-up if needed. Please note: Queries are made part of the Legal Health Record. If you have any questions, please contact the author of this message via ITS. Dr. Ej Gibson, Type I Diabetic ketoacidosis is documented in the H&P and patient is noted to have to be off his Insulin pump per H&P. Please clarify if there is a relationship between the diagnosis and Insulin pump and Type I DKA. History/Risk Factors: HTN, HLD, BPH, dementia, Type I DM, peripheral neuropathy, CKD, PAD Clinical Indicators: Per H&P, he has an Insulin pump but likely not functioning, seen by Dr. Acharya and a replacement pump has been ordered for him. Treatment: Off Insulin pump, placed on Levemir 22 units daily and Insulin Novolog to sliding scale before meals. Insulin pump ordered. Please clarify the relationship, if any, which is clinically appropriate for this patient: [x ] Nonfunctioning Insulin pump causing Type I DKA [ ] Type I DKA not due to nonfunctioning Insulin pump [ ] Other explanation of clinical findings (please specify) [ ] Unable to determine (no explanation for clinical findings) MTDD
== END 2023-01-31 13:58 | disposition home or self-care (01) | DRG 638 ==
LOC: EC 14:23 → 4SSUR 19:40
PROVIDERS: ADMIT Internal Medicine; ATTEND Internal Medicine
DX: E10.10 Type 1 diabetes mellitus with ketoacidosis without coma (principal); D68.51 Activated protein C resistance; F03.93 Unspecified dementia, unspecified severity, with mood disturbance; E10.51 Type 1 diabetes mellitus with diabetic peripheral angiopathy without gangrene; E10.42 Type 1 diabetes mellitus with diabetic polyneuropathy; E10.22 Type 1 diabetes mellitus with diabetic chronic kidney disease; I12.9 Hypertensive chronic kidney disease with stage 1 through stage 4 chronic kidney disease, or unspecified chronic kidney disease; Z79.4 Long term (current) use of insulin; N18.9 Chronic kidney disease, unspecified; I95.1 Orthostatic hypotension; N40.0 Benign prostatic hyperplasia without lower urinary tract symptoms; E78.5 Hyperlipidemia, unspecified; G25.81 Restless legs syndrome; R13.10 Dysphagia, unspecified; M25.572 Pain in left ankle and joints of left foot; I25.10 Atherosclerotic heart disease of native coronary artery without angina pectoris; H91.90 Unspecified hearing loss, unspecified ear; M19.90 Unspecified osteoarthritis, unspecified site; G89.29 Other chronic pain; M54.41 Lumbago with sciatica, right side; M54.42 Lumbago with sciatica, left side; M54.2 Cervicalgia; K21.9 Gastro-esophageal reflux disease without esophagitis; I34.0 Nonrheumatic mitral (valve) insufficiency; Z79.82 Long term (current) use of aspirin; Z79.02 Long term (current) use of antithrombotics/antiplatelets; Z79.899 Other long term (current) drug therapy; Z87.891 Personal history of nicotine dependence; Z86.73 Personal history of transient ischemic attack (TIA), and cerebral infarction without residual deficits; W18.2XXA Fall in (into) shower or empty bathtub, initial encounter; Y92.002 Bathroom of unspecified non-institutional (private) residence as the place of occurrence of the external cause
CPT/HCPCS: 36415; 70450; 71046; 72125; 80053; 81003; 82009; 82803; 83735; 84484; 85025; 85610; 85730; 93005; 96365; 96366; 96375; 99285

== ENCOUNTER 2023-02-07 01:35 | Inpatient (IN) | payer MEDICARE, OTHER ==
[2023-02-07 02:04] LABS: Glucose,Whole Blood 187 mg/dL (70-110)
--- NOTE | 2023-02-07 02:12 | ED ---
General Adult HPI - General Chief complaint: Neuro Symptoms/Deficit Stated complaint: Fall Time Seen by Provider: 02/07/23 01:40 Source: EMS Mode of arrival: EMS Limitations: no limitations - History of Present Illness Initial comments: 72-year-old male presents to the emergency department for altered mental status. EMS and provides the history. states that the patient had facial droop starting around 5 PM. She also reports that he had some confused speech. She states he is normally a and O 3 at baseline. Patient was recently seen for similar complaints. was hoping that it was going to improve on its own and therefore she did not call EMS. She reports that he continued to be off balance and have speech difficulty and so she finally called for an ambulance. She denies any fevers. No head trauma. Previously was diagnosed with a TIA. Upon EMS arrival the patient did not have any facial droop. They did note that the p atient was a and O 2. Patient cannot answer why he is in the emergency department. No other alleviating, precipitating or modifying factors - Related Data Home Medications Medication Instructions Recorded Confirmed Aspirin 81 mg PO DAILY 10/16/13 01/28/23 Pantoprazole [Protonix] 40 mg PO BID 01/20/18 01/28/23 Tamsulosin [Flomax] 0.4 mg PO HS 11/09/18 01/28/23 Cetirizine HCl [Zyrtec] 10 mg PO DAILY 08/21/22 01/28/23 Citalopram Hydrobromide 40 mg PO DAILY 08/21/22 01/28/23 [Citalopram HBr] Fludrocortisone Acetate 0.2 mg PO DAILY 08/21/22 01/28/23 Docusate [Colace] 300 mg PO DAILY 10/09/22 01/28/23 Memantine [Namenda] 5 mg PO BID 10/09/22 01/28/23 Acetaminophen [Tylenol Extra 1,000 mg PO BID 11/14/22 01/28/23 Strength] Atorvastatin [Lipitor] 40 mg PO HS 11/14/22 01/28/23 Finasteride [Proscar] 5 mg PO DAILY 12/27/22 01/28/23 Lisinopril-Hctz 20-12.5 mg 1 tab PO DAILY 11/07/23 11/07/23 [Zestoretic 20-12.5] Previous Rx's Medication Instructions Recorded rOPINIRole HCL [Requip] 0.5 mg PO HS 30 Days #30 tablet 05/09/18 Clopidogrel [Plavix] 75 mg PO DAILY 30 Days #30 tab 01/03/23 INSULIN ASPART (NovoLOG) [NovoLOG See Protocol SQ ACHS #1 pen 01/31/23 (formulary)] Insulin Degludec [Tresiba 22 units SQ DAILY #1 pen 01/31/23 Flextouch U-100 Pen] Midodrine [ProAmatine] 5 mg PO AC-TID 30 Days #90 tab 01/31/23 Allergies Allergy/AdvReac Type Severity Reaction Status Date / Time No Known Allergies Allergy Verified 02/07/23 01:40 Review of Systems ROS Statement: Those systems with pertinent positive or pertinent negative responses have been documented in the HPI. ROS Other: All systems not noted in ROS Statement are negative. Past Medical History Past Medical History: Blood Disorder, Coronary Artery Disease (CAD), CVA/TIA, Dementia, Diabetes Mellitus, Eye Disorder, GERD/Reflux, Hearing Disorder / Deafness, Hyperlipidemia, Hypertension, Neurologic Disorder, Osteoarthritis (OA), Prostate Disorder, Renal Disease, Syncope Additional Past Medical History / Comment(s): IDDM type I with insulin pump, bilateral legs/feet/arms and hand neuropathy, chronic renal disease, difficulty swallowing, RLS, factor V, early dementia, BPH, bilateral tinnitis, R eye retinal bleeds x2, chronic low back pain with bilateral sciatica which is worse on the right side, bilateral shoulder and cervical pain, possible TIAs (01/13) History of Any Multi-Drug Resistant Organisms: None Reported Past Surgical History: Adenoidectomy, Back Surgery, Heart Catheterization, Orthopedic Surgery, Tonsillectomy Additional Past Surgical History / Comment(s): Lumbar laminectomy, R knee cartildge surgery, bilateral carpal tunnel released, sen wrist dequevain surgery, R rotator cuff repair, L foot pins and plates, EGD, colonoscopy, R eye laser eye surgery for retinal bleeds, bilateral cataract removals/lens implants, L arm broke- did not operate on yet Past Anesthesia/Blood Transfusion Reactions: Motion Sickness Past Psychological History: Depression Smoking Status: Former smoker Past Alcohol Use History: None Reported Past Drug Use History: None Reported - Past Family History Brother(s) Family Medical History: Blood Disorder, Deep Vein Thrombosis (DVT) Mother Additional Family Medical History / Comment(s): Mother had palsey Father Family Medical History: COPD, Myocardial Infarction (RI) Additional Family Medical History / Comment(s): Father of COPD/RI at the age of 72 yrs. General Exam Limitations: altered mental status General appearance: alert, in no apparent distress Head exam: Present: atraumatic, normocephalic, normal inspection Eye exam: Present: normal appearance, PERRL, EOMI. Absent: scleral icterus, conjunctival injection, periorbital swelling ENT exam: Present: normal exam, mucous membranes moist Neck exam: Present: normal inspection. Absent: tenderness, meningismus, lymphadenopathy Respiratory exam: Present: normal lung sounds bilaterally. Absent: respiratory distress, wheezes, rales, rhonchi, stridor Cardiovascular Exam: Present: regular rate, normal rhythm, normal heart sounds. Absent: systolic murmur, diastolic murmur, rubs, gallop, clicks GI/Abdominal exam: Present: soft, normal bowel sounds. Absent: distended, tenderness, guarding, rebound, rigid Extremities exam: Present: normal inspection, full ROM, normal capillary refill. Absent: tenderness, pedal edema, joint swelling, calf tenderness Back exam: Present: normal inspection Neurological exam: Present: alert, CN II-XII intact, other (Oriented 2) Psychiatric exam: Present: normal affect, normal mood Skin exam: Present: warm, dry, intact, normal color. Absent: rash Course Vital Signs 02/07/23 02/07/23 01:40 02:51 Temperature 97.2 F L Pulse Rate 74 80 Respiratory 16 16 Rate Blood Pressure 175/78 151/75 O2 Sat by Pulse 97 97 Oximetry Medical Decision Making - Medical Decision Making Was pt. sent in by a medical professional or institution (, PA, CLOTH SHADER, urgent care, hospital, or detention...) When possible be specific @ -No Did you speak to anyone other than the patient for history (EMS, parent, family, police, friend...)? What history was obtained from this source @ -Spoke with the and EMS Did you review nursing and triage notes (agree or disagree)? Why? @ -I reviewed and agree with nursing and triage notes Were old charts reviewed (outside hosp., previous admission, EMS record, old EKG, old radiological studies, urgent care reports/EKG's, detention records)? Report findings @ -I reviewed discharge summary from January 31 Differential Diagnosis (chest pain, altered mental status, abdominal pain women, abdominal pain men, vaginal bleeding, weakness, fever, dyspnea, syncope, headache, dizziness, GI bleed, back pain, seizure, CVA, palpatations, mental health, musculoskeletal)? @ -Differential Altered Mental Status: Hypoglycemia, DKA, hypercapnia, ETOH, overdose, CO poisoning, trauma, myxedema coma, HTN encephalopathy, infection, encephalitis, psychosis, intercranial hemorrhage, hepatic encephalopathy, meningitis, CVA, this is not meant to be an all-inclusive list EKG interpreted by me (3pts min.). @ -Yes and demonstrates sinus rhythm with a rate of 77. ID interval 147. QRS 103. QTC of 372. No acute ST segment elevations or depressions X-rays interpreted by me (1pt min.). @ -Yes and demonstrates no acute intrathoracic process CT interpreted by me (1pt min.). @ -Yes and demonstrates no acute intracranial process U/S interpreted by me (1pt. min.). @ -None done What testing was considered but not performed or refused? (CT, X-rays, U/S, labs)? Why? @ -None What meds were considered but not given or refused? Why? @ -None Did you discuss the management of the patient with other professionals (professionals i.e. , PA, CLOTH SHADER, lab, RT, psych nurse, social science manager, tire sorter, teacher, unclaimed property officer, sample case porter)? Give summary @ -Spoke with Dr. Gibson for admission Was smoking cessation discussed for >3mins.? @ -No Was critical care preformed (if so, how long)? @ -No Were there social determinants of health that impacted care today? How? (Homelessness, low income, unemployed, alcoholism, drug addiction, transportation, low edu. Level, literacy, decrease access to med. care, longterm, rehab)? @ -No Was there de-escalation of care discussed even if they declined (Discuss DNR or withdrawal of care, Hospice)? DNR status @ -No What co-morbidities impacted this encounter? (DM, HTN, Smoking, COPD, CAD, Ca ncer, CVA, ARF, Chemo, Hep., AIDS, mental health diagnosis, sleep apnea, morbid obesity)? @ -Dementia Was patient admitted / discharged? Hospital course, mention meds given and route, prescriptions, significant lab abnormalities, going to OR and other pertinent info. @ -Admitted. Upon arrival patient was placed into room 7. Thorough history and physical exam was performed. Patient is alert and oriented 2 however doesn't know where he is at. There is no lateralizing deficit. IV is established and laboratory studies were conducted. CT is performed the patient's head. Laboratory studies and imaging are within normal limits. I di scussed the results with the patient's . Recommended admission due to unknown encephalopathy. Spoke with Dr. Gibson who agreed to admit the patient Undiagnosed new problem with uncertain prognosis? @ Yes Drug Therapy requiring intensive monitoring for toxicity (Heparin, Nitro, Insulin, Cardizem)? @ -No Were any procedures done? @ -No Diagnosis/symptom? @ -Acute encephalopathy Acute, or Chronic, or Acute on Chronic? @ -Acute Uncomplicated (without systemic symptoms) or Complicated (systemic symptoms)? @ -Complicated Side effects of treatment? @ -No Exacerbation, Progression, or Severe Exacerbation? @ -No Poses a threat to life or bodily function? How? (Chest pain, USA, RI, pneumonia, PE, COPD, DKA, ARF, appy, cholecystitis, CVA, Diverticulitis, Homicidal, Suicidal, threat to staff... and all critical care pts) @ -No - Lab Data Result diagrams: 02/07/23 01:42 02/07/23 01:42 Lab Results 02/07/23 02/07/23 02/07/23 Range/Units 01:42 01:42 01:42 WBC 7.5 (3.8-10.6) k/uL RBC 4.16 L (4.30-5.90) m/uL Hgb 13.7 (13.0-17.5) gm/dL Hct 39.6 (39.0-53.0) % MCV 95.3 (80.0-100.0) fL MCH 32.9 (25.0-35.0) pg MCHC 34.5 (31.0-37.0) g/dL RDW 13.1 (11.5-15.5) % Plt Count 193 (150-450) k/uL MPV 8.7 Neutrophils % 60 % Lymphocytes % 31 % Monocytes % 5 % Eosinophils % 1 % Basophils % 0 % Neutrophils # 4.5 (1.3-7.7) k/uL Lymphocytes # 2.4 (1.0-4.8) k/uL Monocytes # 0.4 (0-1.0) k/uL Eosinophils # 0.1 (0-0.7) k/uL Basophils # 0.0 (0-0.2) k/uL PT 11.1 (10.0-12.5) sec INR 1.0 (<1.2) APTT 20.4 L (22.0-30.0) sec Sodium 136 L (137-145) mmol/L Potassium 3.3 L (3.5-5.1) mmol/L Chloride 101 (98-107) mmol/L Carbon Dioxide 26 (22-30) mmol/L Anion Gap 9 mmol/L BUN 22 H (9-20) mg/dL Creatinine 1.03 (0.66-1.25) mg/dL Est GFR (CKD-EPI)AfAm 84 (>60 ml/min/1.73 sqM) Est GFR (CKD-EPI)NonAf 73 (>60 ml/min/1.73 sqM) Glucose 192 H (74-99) mg/dL POC Glucose (mg/dL) (70-110) mg/dL POC Glu Melter Clerk ID Calcium 8.8 (8.4-10.2) mg/dL Total Bilirubin 0.6 (0.2-1.3) mg/dL AST 33 (17-59) U/L ALT 30 (4-49) U/L Alkaline Phosphatase 64 (38-126) U/L Troponin I (0.000-0.034) ng/mL Total Protein 6.4 (6.3-8.2) g/dL Albumin 3.6 (3.5-5.0) g/dL Serum Alcohol <10 mg/dL 02/07/23 02/07/23 Range/Units 01:42 02:03 WBC (3.8-10.6) k/uL RBC (4.30-5.90) m/uL Hgb (13.0-17.5) gm/dL Hct (39.0-53.0) % MCV (80.0-100.0) fL MCH (25.0-35.0) pg MCHC (31.0-37.0) g/dL RDW (11.5-15.5) % Plt Count (150-450) k/uL MPV Neutrophils % % Lymphocytes % % Monocytes % % Eosinophils % % Basophils % % Neutrophils # (1.3-7.7) k/uL Lymphocytes # (1.0-4.8) k/uL Monocytes # (0-1.0) k/uL Eosinophils # (0-0.7) k/uL Basophils # (0-0.2) k/uL PT (10.0-12.5) sec INR (<1.2) APTT (22.0-30.0) sec Sodium (137-145) mmol/L Potassium (3.5-5.1) mmol/L Chloride (98-107) mmol/L Carbon Dioxide (22-30) mmol/L Anion Gap mmol/L BUN (9-20) mg/dL Creatinine (0.66-1.25) mg/dL Est GFR (CKD-EPI)AfAm (>60 ml/min/1.73 sqM) Est GFR (CKD-EPI)NonAf (>60 ml/min/1.73 sqM) Glucose (74-99) mg/dL POC Glucose (mg/dL) 187 H (70-110) mg/dL POC Glu Melter Clerk ID Jose Dickens Calcium (8.4-10.2) mg/dL Total Bilirubin (0.2-1.3) mg/dL AST (17-59) U/L ALT (4-49) U/L Alkaline Phosphatase (38-126) U/L Troponin I 0.024 (0.000-0.034) ng/mL Total Protein (6.3-8.2) g/dL Albumin (3.5-5.0) g/dL Serum Alcohol mg/dL Disposition Clinical Impression: Acute encephalopathy Disposition: ADMITTED IP TO THIS [facility] Condition: Stable Is patient prescribed a controlled substance at d/c from ED?: No Referrals: Ej Gibson MD [Primary Care Provider] - 1-2 days Time of Disposition: 05:34 Decision to Admit Reason: Admit from EC Decision Date: 02/07/23 Decision Time: 05:34
[2023-02-07 02:13] LABS: Basophils % (A) 0 %; Eosinophils # (A) 0.1 k/uL (0-0.7); Eosinophils % (A) 1 %; HCT 39.6 % (39.0-53.0); HGB 13.7 gm/dL (13.0-17.5); Lymphocytes # (A) 2.4 k/uL (1.0-4.8); Lymphocytes % (A) 31 %; MCH 32.9 pg (25.0-35.0); MCHC 34.5 g/dL (31.0-37.0); MCV 95.3 fL (80.0-100.0); Mean Platelet Volume 8.7; Monocytes # (A) 0.4 k/uL (0-1.0); Monocytes % (A) 5 %; Neutrophils # (A) 4.5 k/uL (1.3-7.7); Neutrophils % (A) 60 %; Platelet Count 193 k/uL (150-450); RBC 4.16 m/uL (4.30-5.90); RDW 13.1 % (11.5-15.5); WBC 7.5 k/uL (3.8-10.6)
[2023-02-07 02:23] LABS: ALT 30 U/L (4-49); AST 33 U/L (17-59); African American GFR (CKD) 84 (>60 ml/min/1.73 sqM); Albumin 3.6 g/dL (3.5-5.0); Alcohol <10 mg/dL; Alkaline Phosphatase 64 U/L (38-126); Anion Gap 9 mmol/L; Blood Urea Nitrogen 22 mg/dL (9-20); Calcium 8.8 mg/dL (8.4-10.2); Carbon Dioxide 26 mmol/L (22-30); Chloride 101 mmol/L (98-107); Glucose 192 mg/dL (74-99); Non-African American GFR(CKD) 73 (>60 ml/min/1.73 sqM); Potassium 3.3 mmol/L (3.5-5.1); Sodium 136 mmol/L (137-145); Total Bilirubin 0.6 mg/dL (0.2-1.3); Total Protein 6.4 g/dL (6.3-8.2)
[2023-02-07 02:44] LABS: Partial Thromboplastin Time 20.4 sec (22.0-30.0); Prothrombin Time 11.1 sec (10.0-12.5)
[2023-02-07] MEDS ORDERED: LORazepam 2 MG/ML INJ IV STA (03:16)
--- NOTE | 2023-02-07 04:01 | CT ---
EXAM: CT Head Without Intravenous Contrast CLINICAL HISTORY: ITS.REASON CT Reason: Altered mental status TECHNIQUE: Axial computed tomography images of the head/brain without intravenous contrast. CTDI is 25.35 mGy and DLP is 624.03 mGy-cm. This CT exam was performed using one or more of the following dose reduction techniques: automated exposure control, adjustment of the mA and/or kV according to patient size, and/or use of iterative reconstruction technique. COMPARISON: No relevant prior studies available. FINDINGS: Brain: No hemorrhage or mass effect. Ventricles: No hydrocephalus. Bones/joints: Unremarkable. Soft tissues: Unremarkable. Sinuses: No air fluid level. Mastoid air cells: Clear. IMPRESSION: No acute hemorrhage, hydrocephalus, or mass effect.
--- NOTE | 2023-02-07 04:03 | CT ---
EXAM: CT Angiography Head With Intravenous Contrast CLINICAL HISTORY: ITS.REASON CT Reason: stroke like symptoms this evening, continued confu TECHNIQUE: Axial computed tomographic angiography images of the head with intravenous contrast. CTDI is 48.8 mGy and DLP is 1254 mGy-cm. This CT exam was performed using one or more of the following dose reduction techniques: automated exposure control, adjustment of the mA and/or kV according to patient size, and/or use of iterative reconstruction technique. MIP reconstructed images were created and reviewed. COMPARISON: No relevant prior studies available. FINDINGS: Right internal carotid artery: Intracranial segment is patent with no significant stenosis. No aneurysm. Right anterior cerebral artery: No occlusion or significant stenosis. No aneurysm. Right middle cerebral artery: No occlusion or significant stenosis. No aneurysm. Right posterior cerebral artery: No occlusion or significant stenosis. No aneurysm. Right vertebral artery: Unremarkable. Left internal carotid artery: Intracranial segment is patent with no significant stenosis. No aneurysm. Left anterior cerebral artery: No occlusion or significant stenosis. No aneurysm. Left middle cerebral artery: No occlusion or significant stenosis. No aneurysm. Left posterior cerebral artery: No occlusion or significant stenosis. No aneurysm. Left vertebral artery: Unremarkable. Basilar artery: No occlusion or significant stenosis. No aneurysm. IMPRESSION: No significant stenosis. EXAM: CT Angiography Neck With Intravenous Contrast CLINICAL HISTORY: ITS.REASON CT Reason: stroke like symptoms this evening, continued confu TECHNIQUE: Axial computed tomographic angiography images of the neck with intravenous contrast. CTDI is 36.7 mGy and DLP is 618.1 mGy-cm. This CT exam was performed using one or more of the following dose reduction techniques: automated exposure control, adjustment of the mA and/or kV according to patient size, and/or use of iterative reconstruction technique. MIP reconstructed images were created and reviewed. COMPARISON: No relevant prior studies available. FINDINGS: VASCULATURE: Right common carotid artery: No significant stenosis. No dissection. Right internal carotid artery: Mild stenosis. No dissection. Right vertebral artery: No significant stenosis. No dissection. Left common carotid artery: No significant stenosis. No dissection. Left internal carotid artery: Mild stenosis. No dissection. Left vertebral artery: No significant stenosis. No dissection. NECK: Bones/joints: No acute fracture. No dislocation. CAROTID STENOSIS REFERENCE USING NASCET CRITERIA: % ICA stenosis = (1 - narrowest ICA diameter/diameter of distal cervical ICA) x 100. Mild - <50% stenosis. Moderate - 50-69% stenosis. Severe - 70-94% stenosis. Near occlusion - 95-99% stenosis. Occluded - 100% stenosis. IMPRESSION: Mild bilateral ICA stenosis from atherosclerosis.
[2023-02-07] MEDS ORDERED: NALOXONE 0.4 MG/ML 1 ML VIAL IV PRN (05:34)
--- NOTE | 2023-02-07 07:15 | XR ---
EXAMINATION TYPE: XR chest 1V DATE OF EXAM: 02/07/2023 3:30 AM CLINICAL INDICATION:Male, 72 years old with history of altered mental status; COMPARISON: Chest radiographs from 01/28/2023. TECHNIQUE: XR chest 1V Frontal view of the chest. FINDINGS: Lungs/Pleura: There is no evidence of pleural effusion, focal consolidation, or pneumothorax. Pulmonary vascularity: Unremarkable. Heart/mediastinum: Cardiomediastinal silhouette is unremarkable. Musculoskeletal: Degenerative changes of the shoulder joints. Other findings: None IMPRESSION: No acute cardiopulmonary disease/process.
[2023-02-07] MEDS ORDERED: DEXTROSE 50% SYRINGE 50 ML IVP PRN ×2 (09:35)
[2023-02-07 09:58] LABS: Appearance,Urine Clear (Clear); Bilirubin,Urine Negative (Negative); Blood,Urine Negative (Negative); Color,Urine Colorless; Glucose,Urine (UA) 4+ (Negative); Ketones,Urine 1+ (Negative); Leukocyte Esterase,Urine Negative (Negative); Nitrite,Urine Negative (Negative); PH, Urine 5.5 (5.0-8.0); Protein,Urine Negative (Negative); Specific Gravity,Urine 1.041 (1.001-1.035); Urobilinogen,Urine <2.0 mg/dL (<2.0)
[2023-02-07] MEDS ORDERED: ACETAMINOPHEN TAB 500 MG TAB PO PRN (10:01)
[2023-02-07] MEDS ORDERED: CLOPIDOGREL 75 MG TAB PO SCH (10:15)
[2023-02-07 12:22] LABS: Glucose,Whole Blood 330 mg/dL (70-110)
[2023-02-07] MEDS: INSULIN ASPART (NovoLOG) 100 UNIT/ML VIAL SQ SCH ×3 (12:36→20:37)
[2023-02-07] MEDS: MIDODRINE 5 MG TAB PO SCH ×2 (12:37→17:38)
[2023-02-07 16:58] LABS: Glucose,Whole Blood 366 mg/dL (70-110)
[2023-02-07] MEDS: PANTOPRAZOLE 40 MG TABLET PO SCH (17:19)
[2023-02-07] MEDS: INSULIN DETEMIR (LEVEMIR) 100 UNIT/ML SYR SQ SCH (18:22)
[2023-02-07] MEDS: MEMANTINE 5 MG TAB PO SCH (19:40)
[2023-02-07] MEDS: ATORVASTATIN 40 MG TAB PO SCH (19:40)
[2023-02-07] MEDS: TAMSULOSIN 0.4 MG CAP.ER.24H PO SCH (19:40)
[2023-02-07] MEDS: TICAGRELOR 90 MG TAB PO SCH (19:40)
[2023-02-07 20:21] LABS: Glucose,Whole Blood 339 mg/dL (70-110)
[2023-02-08 06:12] LABS: Glucose,Whole Blood 135 mg/dL (70-110)
[2023-02-08] MEDS: MIDODRINE 5 MG TAB PO SCH (06:27)
[2023-02-08] MEDS: INSULIN ASPART (NovoLOG) 100 UNIT/ML VIAL SQ SCH ×4 (06:27→20:44)
[2023-02-08] MEDS: PANTOPRAZOLE 40 MG TABLET PO SCH ×2 (06:27→16:08)
[2023-02-08] MEDS: INSULIN DETEMIR (LEVEMIR) 100 UNIT/ML SYR SQ SCH (06:28)
[2023-02-08] MEDS: ASPIRIN 81 MG PO SCH (07:50)
[2023-02-08] MEDS: MEMANTINE 5 MG TAB PO SCH ×2 (07:50→19:39)
[2023-02-08] MEDS: DOCUSATE 100 MG CAP PO SCH (07:50)
[2023-02-08] MEDS: CITALOPRAM HYDROBROMIDE 20 MG TAB PO SCH (07:50)
[2023-02-08] MEDS: FINASTERIDE 5 MG TAB PO SCH (07:50)
[2023-02-08] MEDS: TICAGRELOR 90 MG TAB PO SCH ×2 (07:50→19:39)
[2023-02-08] MEDS: ENOXAPARIN 40 MG/0.4 ML SYRINGE SQ SCH (07:51)
[2023-02-08] MEDS: LORATADINE 10 MG TAB PO SCH (07:51)
[2023-02-08] MEDS: LISINOPRIL-HCTZ 20-12.5 MG 1 EACH TAB PO SCH (07:51)
--- NOTE | 2023-02-08 08:27 | P.CNNES ---
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 Patient's present, who provided with a history. She states that yesterday they went to primary physician's office and he was doing well. From their they went to grocery store. Patient's stated in the car, but patient's went to get the groceries. Shortly after when she came back, patient has some altered mental status at around 5 PM, when she notices that he was drooling out of the mouth, talking gibberish, couldn't swallow, mumbling, couldn't talk, not making sense. She did not notice any facial drooping. No focal numbness tingling or weakness. She took her to home. They stayed home, but as the symptoms persisted, she called the ambulance after midnight. As per EMS flow sheet when EMS arrived, patient was sleeping on the sofa. Patient's mentioned that he had a strokelike symptoms with facial droop at 5 PM yesterday. Patient was not answering questions correctly. mentioned that patient is normally able to answer questions. He had had no facial droop or arm drift or abnormal paralysis. Patient does have neuropathy of lower extremities and stated he falls a lot. Patient has not fallen that day. He was seen by his primary physician earlier today. Patient's blood glucose at the scene was 175. He was alert and oriented 1. Patient's blood pressure was 158/53, pulse rate 84, respiration 18, saturation 97% in the EKG shows sinus rhythm. Blood test shows normal CBC, PT/PTT, sodium 136 potassium 3.3, normal renal functions. Hepatic panel is normal, UA is negative, blood alcohol level < 10. EKG shows sinus rhythm CT head showed no acute process, hydrocephalus or mass effect. I personally reviewed CT head and agree with the findings. Chest x-ray showed no acute cardiopulmonary process. Patient was not a candidate for TPA, as his symptoms have been present for over 8 hours. In the ED patient was noted to be alert and oriented 2 and did not know where he is at. There were no lateralizing deficit. Patient was admitted for unknown causes of encephalopathy. Patient's mentions that she went to sleep at 6 AM and he still has issues with memory and speech. When she came back at 11 AM this morning, all symptoms have resolved, as if nothing has happened. At present he is back to baseline. Patient was recently seen in hospital consultation on 12/28/2022 for possible TIA with slurred speech and right arm weakness that lasted for 1-1/2 hours. Patient's workup performed last visit included: * MRI of the brain without contrast: It is reported as no evidence of intracranial mass or acute/subacute infarct. Nonspecific white matter changes, likely secondary due to small vessel ischemic disease. * 2-D echo performed recently 11/15/2022 was normal. Mildly increased left ventricular wall thickness. Left ventricular EF is 55%. Left atrium is mildl y increased in volume. Right Atrium not well visualized. * CARLOS: 1. No evidence of cardiac source of embolization 2. Intact interatrial septum an intact left atrial appendage 3. No evidence of infective endocarditis 4. Moderate mitral regurgitation 5. Normal biventricular dime nsion and systolic function6. evidence of pericardial effusion * CTA head and neck showed: No evidence of dissection of the cervical internal carotid arteries or vertebral arteries or any evidence of significant stenosis of the carotid bifurcations. No evidence of intracranial high-grade stenosis or intracranial aneurysm. Moderate bilateral pleural effusion. * Fasting a.m. lipid panel with cholesterol 150, LDL 68.9, HDL 62 and triglycerides 91 on 10/02/2022. Continue Lipitor 40 mg daily. * Hemoglobin A1c 9.2 on 11/15/2022. Recommend optimize control of diabetes to target A1c < 7.0 * Patient has failed aspirin regimen. He was started on Plavix 75 mg daily. Recommend continue dual antiplatelet medication for 21 days, then stop aspirin and continue Plavix. * Routine EEG: Is normal. Review of Systems Constitutional: Denies chills, Denies fever Eyes: denies blurred vision, denies diplopia, denies pain Ears: bilateral: decreased hearing, deny: ear discharge Ears, nose, mouth and throat: Denies headache, Denies sore throat Cardiovascular: Denies chest pain, Denies shortness of breath Respiratory: Denies cough, Denies excessive sputum Gastrointestinal: Denies abdominal pain, Denies diarrhea, Denies nausea, Denies vomiting Genitourinary: Reports incontinence, Reports urinary frequency Musculoskeletal: Reports low back pain, Reports neck pain, Denies myalgias Integumentary: Denies pruritus, Denies rash Neurological: Reports as per HPI Psychiatric: Reports anxiety, Reports depression Endocrine: Reports fatigue, Denies weight change Hematologic/Lymphatic: Reports easy bleeding, Reports easy bruising Past Medical History Past Medical History: Blood Disorder, Coronary Artery Disease (CAD), CVA/TIA, Dementia, Diabetes Mellitus, Eye Disorder, GERD/Reflux, Hearing Disorder / Deafness, Hyperlipidemia, Hypertension, Neurologic Disorder, Osteoarthritis (OA), Prostate Disorder, Renal Disease, Syncope Additional Past Medical History / Comment(s): IDDM type I with insulin pump, bilateral legs/feet/arms and hand neuropathy, chronic renal disease, difficulty swallowing, RLS, factor V, early dementia, BPH, bilateral tinnitis, R eye retinal bleeds x2, chronic low back pain with bilateral sciatica which is worse on the right side, bilateral shoulder and cervical pain, possible TIAs (01/13) History of Any Multi-Drug Resistant Organisms: None Reported Past Surgical History: Adenoidectomy, Back Surgery, Heart Catheterization, Orthopedic Surgery, Tonsillectomy Additional Past Surgical History / Comment(s): Lumbar laminectomy, R knee cartildge surgery, bilateral carpal tunnel released, sen wrist dequevain surgery, R rotator cuff repair, L foot pins and plates, EGD, colonoscopy, R eye laser eye surgery for retinal bleeds, bilateral cataract removals/lens implants, L arm broke- did not operate on yet Past Anesthesia/Blood Transfusion Reactions: No Reported Reaction, Motion Sickness Past Psychological History: Depression Additional Psychological History / Comment(s): Pt resides with his spouse and their adult son. Pt uses a walker prn. He drives. He is currently managing his own medications but admits this is getting more difficult. Smoking Status: Former smoker Past Alcohol Use History: None Reported Additional Past Alcohol Use History / Comment(s): Pt started smoking in 1962 and quit in 1987 Past Drug Use History: None Reported - Past Family History Brother(s) Family Medical History: Blood Disorder, Deep Vein Thrombosis (DVT) Mother Additional Family Medical History / Comment(s): Mother had palsey Father Family Medical History: COPD, Myocardial Infarction ([place]) Additional Family Medical History / Comment(s): Father of COPD/[place] at the age of 72 yrs. Medications and Allergies Home Medications Medication Instructions Recorded Confirmed Type Aspirin 81 mg PO DAILY 10/16/13 02/07/23 History Pantoprazole [Protonix] 40 mg PO BID 01/20/18 02/07/23 History rOPINIRole HCL [Requip] 0.5 mg PO HS 30 Days #30 tablet 05/09/18 02/07/23 Rx Tamsulosin [Flomax] 0.4 mg PO HS 11/09/18 02/07/23 History Cetirizine HCl [Zyrtec] 10 mg PO DAILY 08/21/22 02/07/23 History Citalopram Hydrobromide 40 mg PO DAILY 08/21/22 02/07/23 History [Citalopram HBr] Fludrocortisone Acetate 0.2 mg PO DAILY 08/21/22 02/07/23 History Docusate [Colace] 300 mg PO DAILY 10/09/22 02/07/23 History Memantine [Namenda] 5 mg PO BID 10/09/22 02/07/23 History Acetaminophen [Tylenol Extra 1,000 mg PO BID 11/14/22 02/07/23 History Strength] Atorvastatin [Lipitor] 40 mg PO HS 11/14/22 02/07/23 History Finasteride [Proscar] 5 mg PO DAILY 12/27/22 02/07/23 History Clopidogrel [Plavix] 75 mg PO DAILY 30 Days #30 tab 01/03/23 02/07/23 Rx Lisinopril-Hctz 20-12.5 mg 1 tab PO DAILY 01/28/23 02/07/23 History [Zestoretic 20-12.5] INSULIN ASPART (NovoLOG) [NovoLOG See Protocol SQ ACHS #1 pen 01/31/23 02/07/23 Rx (formulary)] Insulin Degludec [Tresiba 22 units SQ DAILY #1 pen 01/31/23 02/07/23 Rx Flextouch U-100 Pen] Midodrine [ProAmatine] 5 mg PO AC-TID 30 Days #90 tab 01/31/23 02/07/23 Rx Nystatin 100,000Unit/gm Cream 1 applic TOPICAL BID 02/07/23 02/07/23 History [Mycostatin Cream] Allergies Allergy/AdvReac Type Severity Reaction Status Date / Time No Known Allergies Allergy Verified 02/07/23 06:59 Physical Examination - Vital Signs Vital Signs: Vital Signs Temp Pulse Pulse Resp BP BP Pulse Ox 02/08/23 04:00 97.8 F 62 16 136/71 95 02/07/23 23:26 97.8 F 77 18 132/71 97 02/07/23 20:00 98.1 F 72 18 120/74 97 02/07/23 16:09 64 18 128/66 97 02/07/23 12:36 65 16 142/106 96 02/07/23 08:29 74 18 163/76 96 Intake and Output 02/07/23 02/08/23 02/08/23 22:59 06:59 14:59 Output Total 200 450 Balance -200 -450 Output: Urine 200 450 Other: Weight 99.79 kg Patient is an elderly male, very pleasant, in no acute distress. Patient is alert awake oriented to time place and person. Speech and language functions are normal. Patient can name and repeat very well. No aphasia or dysarthria. Attention, concentration and fund of knowledge is adequate. On cranial nerve examination, pupils are equal, round and reacting to light, visual wu are full on confrontation, with no neglect on double simultaneous stimulation. Extraocular muscles are intact with no nystagmus. Face is symmetric, tongue protrudes to the midline. Palatal elevation and sensation normal, hearing and shoulder shrug normal, facial sensation normal. On muscle strength testing, the left shoulder is stiff from previous surgery. However there is no obvious pronator drift. Muscle strength is normal in arms and legs distally and proximally. Deep tendon reflexes are symmetric 1 at the biceps, 1 brachioradialis, 1+ at the knees, 0 ankles and plantars downgoing. Sensory to touch is equal with no neglect on double simultaneous stimulation. Cerebellar function showed no ataxia for [id number] testing. No dysdiadochokinesia. No ataxia for [id number] testing on either side. Tone and bulk of muscles normal. Gait deferred.. On general examination, there is no carotid bruit or murmur, S1-S2 audible. Chest is clear on consultation. Abdomen is soft nontender. No organomegaly, charlene wel sounds present. Peripheral pulses are present. Patient has moderate peripheral edema. Results - Laboratory Findings CBC and BMP: 02/07/23 01:42 02/07/23 01:42 Abnormal Lab Findings: Abnormal Labs 02/07/23 02/07/23 02/07/23 01:42 01:42 01:42 RBC 4.16 L APTT 20.4 L Sodium 136 L Potassium 3.3 L BUN 22 H Glucose 192 H POC Glucose (mg/dL) Hemoglobin A1c Ur Specific Forrest Urine Glucose (UA) Urine Ketones 02/07/23 02/07/23 02/07/23 01:42 02:03 02:04 RBC APTT Sodium Potassium BUN Glucose POC Glucose (mg/dL) 187 H Hemoglobin A1c 9.8 H Ur Specific Forrest 1.041 H Urine Glucose (UA) 4+ H Urine Ketones 1+ H 02/07/23 02/07/23 02/07/23 12:21 16:57 20:19 RBC APTT Sodium Potassium BUN Glucose POC Glucose (mg/dL) 330 H 366 H 339 H Hemoglobin A1c Ur Specific [place] Urine Glucose (UA) Urine Ketones 02/08/23 06:05 RBC APTT Sodium Potassium BUN Glucose POC Glucose (mg/dL) 135 H Hemoglobin A1c Ur Specific [place] Urine Glucose (UA) Urine Ketones Assessment and Plan Assessment: * Probable recurrent TIA. Patient presented with transient encephalopathy with gibberish speech, drooling but without any other lateralizing symptoms. Patient's symptoms resolved in < 18 hours. Patient's current NIH stroke seen is 0. Patient has just recently presented on 12/28/2022 as well with possible TIA with expressive aphasia and right hand numbness, that lasted for 1-1/2 hours. The day prior (12/27/2022), he had transient facial droop and right tongue numbness, that lasted for an hour. * Insulin-dependent diabetes * Mild cognitive impairment * X tobacco use * Peripheral neuropathy * History of syncopal spells, unclear cause. Plan: * Patient already had all workup completed in the recent admission. * CTA of head showed no significant stenosis. CTA of the neck showed mild bilateral ICA stenosis from atherosclerosis. * Patient on the last admission was switched from aspirin to Plavix. He had thi s current episode on Plavix. We will switch to Brilinta 90 mg twice a day. * Patient had a CARLOS performed last admission, which was normal. Also had an EEG which was normal. No need to repeat. * UA is negative. * Hemoglobin A1c 9.8 (first and, as A1c was 8.3 last admit 12/29/2022). Recommend optimize additional of the control of diabetes to target A1c < 7.0. * Check B12, folate. TSH is normal. * Consider event monitor placement for 30 days to rule out PAF. * Neurologically clear with the above recommendations. Thank you for the consult.
[2023-02-08] MEDS ORDERED: FLUDROCORTISONE 0.1 MG TAB PO SCH (09:00)
[2023-02-08 09:26] LABS: HCT 40.7 % (39.0-53.0); HGB 13.1 gm/dL (13.0-17.5); Lymphocytes % (A) 42 %; MCH 31.3 pg (25.0-35.0); MCHC 32.2 g/dL (31.0-37.0); MCV 97.3 fL (80.0-100.0); Mean Platelet Volume 9.3; Monocytes % (A) 5 %; Neutrophils % (A) 47 %; Platelet Count 177 k/uL (150-450); RBC 4.19 m/uL (4.30-5.90); RDW 13.5 % (11.5-15.5); WBC 6.8 k/uL (3.8-10.6)
[2023-02-08 09:27] LABS: Basophils % (A) 0 %; Eosinophils # (A) 0.3 k/uL (0-0.7); Eosinophils % (A) 4 %; Lymphocytes # (A) 2.9 k/uL (1.0-4.8); Monocytes # (A) 0.3 k/uL (0-1.0); Neutrophils # (A) 3.2 k/uL (1.3-7.7)
[2023-02-08 09:37] LABS: ALT 30 U/L (4-49); AST 37 U/L (17-59); African American GFR (CKD) >90 (>60 ml/min/1.73 sqM); Albumin 3.3 g/dL (3.5-5.0); Alkaline Phosphatase 57 U/L (38-126); Anion Gap 7 mmol/L; Blood Urea Nitrogen 18 mg/dL (9-20); Calcium 8.5 mg/dL (8.4-10.2); Carbon Dioxide 31 mmol/L (22-30); Chloride 100 mmol/L (98-107); Glucose 178 mg/dL (74-99); Non-African American GFR(CKD) 87 (>60 ml/min/1.73 sqM); Potassium 3.4 mmol/L (3.5-5.1); Sodium 138 mmol/L (137-145); Total Bilirubin 0.8 mg/dL (0.2-1.3); Total Protein 6.1 g/dL (6.3-8.2)
[2023-02-08] MEDS ORDERED: Potassium Replacement Protocol 1 EACH MISC MISCELLANE PRN (09:41)
[2023-02-08] MEDS: POTASSIUM CHLORIDE ER 20 MEQ TAB.ER PO SCH (11:09)
[2023-02-08 11:22] VITALS: BMI 29.8
[2023-02-08 11:31] LABS: Glucose,Whole Blood 322 mg/dL (70-110)
--- NOTE | 2023-02-08 12:06 | P.HPIM ---
History of Present Illness H&P Date: 02/07/23 Chief Complaint: Acute encephalitis This is a 72-year-old male patient who presents to ER with concerns of altered mental status patient does not recall that history of event is obtained from medical record. According to records Y stated that patient had facial droop starting around 5 PM with some confused speech initially did not call EMS the patient continued to be off balance and speech difficulty which prompted her to call EMS upon arrival patient did not have facial droop but was noted to be alert and oriented to only 2. Patient has a past medical history of coronary artery disease, CVA, dementia, diabetes mellitus, I disorder, GERD, hearing disorder, prostate disorder, hypertension, hyperlipidemia and diabetes mellitus type 1 in which he usually is maintained on insulin pump the patient was recently admitted here due to elevated blood sugars in pump not working properly patient was sent home on NovoLog sliding scale and long-acting insulin. Per johanna seo he has not been able to get into endocrinology to receive new pump parts. Per patient but sugars have been elevated around the 300s parietal blood sugar 192. Initial workup in the ER showing EKG of sinus rhythm. Head CT completed showing no acute hemorrhage hydrocephalus or mass effect. CTA showing mild bilateral ICA stenosis from multiple sclerosis. Chest x-ray completed showing no acute cardiopulmonary disease. Creatinine 1.03 bun 22. White blood cell 7.5 hemoglobin 13.7. This time patient is resting comfortably in bed. Patient is alert and oriented to 2. Patient denies any chest pain or shortness of breath. Patient denies nausea vomiting or diarrhea. Patient denies any urinary burning or frequency. At this time cardiology and neurology services will be consulted 2-D echo will be ordered PT OT services consulted. Home meds resumed Review of Systems Please refer to HPI otherwise unremarkable Past Medical History Past Medical History: Blood Disorder, Coronary Artery Disease (CAD), CVA/TIA, Dementia, Diabetes Mellitus, Eye Disorder, GERD/Reflux, Hearing Disorder / Deafness, Hyperlipidemia, Hypertension, Neurologic Disorder, Osteoarthritis (OA), Prostate Disorder, Renal Disease, Syncope Additional Past Medical History / Comment(s): IDDM type I with insulin pump, bilateral legs/feet/arms and hand neuropathy, chronic renal disease, difficulty swallowing, RLS, factor V, early dementia, BPH, bilateral tinnitis, R eye retinal bleeds x2, chronic low back pain with bilateral sciatica which is worse on the right side, bilateral shoulder and cervical pain, possible TIAs (01/13) History of Any Multi-Drug Resistant Organisms: None Reported Past Surgical History: Adenoidectomy, Back Surgery, Heart Catheterization, Orthopedic Surgery, Tonsillectomy Additional Past Surgical History / Comment(s): Lumbar laminectomy, R knee cartildge surgery, bilateral carpal tunnel released, sen wrist dequevain surgery, R rotator cuff repair, L foot pins and plates, EGD, colonoscopy, R eye laser eye surgery for retinal bleeds, bilateral cataract removals/lens implants, L arm broke- did not operate on yet Past Anesthesia/Blood Transfusion Reactions: Motion Sickness Past Psychological History: Depression Smoking Status: Former smoker Past Alcohol Use History: None Reported Past Drug Use History: None Reported - Past Family History Brother(s) Family Medical History: Blood Disorder, Deep Vein Thrombosis (DVT) Mother Additional Family Medical History / Comment(s): Mother had palsey Father Family Medical History: COPD, Myocardial Infarction ([place]) Additional Family Medical History / Comment(s): Father of COPD/[place] at the age of 72 yrs. Medications and Allergies Home Medications Medication Instructions Recorded Confirmed Type Aspirin 81 mg PO DAILY 10/16/13 02/07/23 History Pantoprazole [Protonix] 40 mg PO BID 01/20/18 02/07/23 History rOPINIRole HCL [Requip] 0.5 mg PO HS 30 Days #30 tablet 05/09/18 02/07/23 Rx Tamsulosin [Flomax] 0.4 mg PO HS 11/09/18 02/07/23 History Cetirizine HCl [Zyrtec] 10 mg PO DAILY 08/21/22 02/07/23 History Citalopram Hydrobromide 40 mg PO DAILY 08/21/22 02/07/23 History [Citalopram HBr] Fludrocortisone Acetate 0.2 mg PO DAILY 08/21/22 02/07/23 History Docusate [Colace] 300 mg PO DAILY 10/09/22 02/07/23 History Memantine [Namenda] 5 mg PO BID 10/09/22 02/07/23 History Acetaminophen [Tylenol Extra 1,000 mg PO BID 11/14/22 02/07/23 History Strength] Atorvastatin [Lipitor] 40 mg PO HS 11/14/22 02/07/23 History Finasteride [Proscar] 5 mg PO DAILY 12/27/22 02/07/23 History Clopidogrel [Plavix] 75 mg PO DAILY 30 Days #30 tab 01/03/23 02/07/23 Rx Lisinopril-Hctz 20-12.5 mg 1 tab PO DAILY 01/28/23 02/07/23 History [Zestoretic 20-12.5] INSULIN ASPART (NovoLOG) [NovoLOG See Protocol SQ ACHS #1 pen 01/31/23 02/07/23 Rx (formulary)] Insulin Degludec [Tresiba 22 units SQ DAILY #1 pen 01/31/23 02/07/23 Rx Flextouch U-100 Pen] Midodrine [ProAmatine] 5 mg PO AC-TID 30 Days #90 tab 01/31/23 02/07/23 Rx Nystatin 100,000Unit/gm Cream 1 applic TOPICAL BID 02/07/23 02/07/23 History [Mycostatin Cream] Allergies Allergy/AdvReac Type Severity Reaction Status Date / Time No Known Allergies Allergy Verified 02/07/23 06:59 Physical Exam Vitals: Vital Signs Temp Pulse Resp BP Pulse Ox 02/07/23 08:29 74 18 163/76 96 02/07/23 02:51 80 16 151/75 97 02/07/23 01:40 97.2 F L 74 16 175/78 97 Intake and Output 02/06/23 02/07/23 02/07/23 22:59 06:59 14:59 Other: Weight 99.79 kg Head normocephalic Neck supple Lungs clear to auscultation bilaterally no wheezing or crackles Heart regular rate and rhythm S1-S2, no rub or gallop Abdomen is soft nontender nondistended positive bowel sounds no hepatosplenomegaly Extremities no edema Neuro alert and orientated to 3 Results CBC & Chem 7: 02/07/23 01:42 02/07/23 01:42 Labs: Abnormal Lab Results - Last 24 Hours (Table) 02/07/23 02/07/23 02/07/23 Range/Units 01:42 01:42 01:42 RBC 4.16 L (4.30-5.90) m/uL APTT 20.4 L (22.0-30.0) sec Sodium 136 L (137-145) mmol/L Potassium 3.3 L (3.5-5.1) mmol/L BUN 22 H (9-20) mg/dL Glucose 192 H (74-99) mg/dL POC Glucose (mg/dL) (70-110) mg/dL 02/07/23 Range/Units 02:03 RBC (4.30-5.90) m/uL APTT (22.0-30.0) sec Sodium (137-145) mmol/L Potassium (3.5-5.1) mmol/L BUN (9-20) mg/dL Glucose (74-99) mg/dL POC Glucose (mg/dL) 187 H (70-110) mg/dL Assessment and Plan Assessment: 1. Altered mental status changes 2. Diabetes mellitus type 1 with hyperglycemia. Patient normally maintained on insulin pump but has been off insulin pump maintained on NovoLog and sliding scale coverage 3. History of essential hypertension 4. History of hyperlipidemia 5. History of BPH 6. History of dementia 7. History of peripheral neuropathy DVT prophylaxis Lovenox. GI prophylaxis Protonix Cardiology and neurology services consulted 2-D echo ordered CTA completed Repeat labs ordered Home meds resumed PT OT services consulted Time with Patient: Greater than 30 (Greater than 60% of the total time spent in counseling and coordination of care)
--- NOTE | 2023-02-08 12:14 | CA ---
Transthoracic Echo Report Name: Yury Brewer Age: 72 Gender: M : 1950 Exam Date: 02/07/2023 14:55 Exam Location: [facility] Ht (in): 72 Wt (lb): 220 Ordering Physician: Ej Gibson MD Attending/Referring Phys: Readiness Paraprofessional Dayana Naik RDCS Procedure CPT: Indications: possible TIA Cardiac Hx: Technical Quality: Very technically difficult study Contrast 1: Total Dose (mL): Contrast 2: Total Dose (mL): MEASUREMENTS (Male / Female) Normal Values 2D ECHO LV Diastolic Diameter PLAX 5.0 cm 4.2 - 5.9 / 3.9 - 5.3 cm LV Systolic Diameter PLAX 2.6 cm IVS Diastolic Thickness 1.3 cm 0.6 - 1.0 / 0.6 - 0.9 cm LVPW Diastolic Thickness 1.4 cm 0.6 - 1.0 / 0.6 - 0.9 cm LV Relative Wall Thickness 0.5 FINDINGS Left Ventricle Mildly increased left ventricular wall thickness. Left ventricular cavity size normal. Normal left ventricular systolic function with no obvious regional wall motion abnormalities. Left ventricular ejection fraction is estimated at 55 %. Right Ventricle Right Atrium Left Atrium Mitral Valve Aortic Valve Tricuspid Valve Pulmonic Valve Pericardium No pericardial effusion. Aorta CONCLUSIONS LVH with preserved systolic function Previewed by: Dr. Javon Rocha MD (Electronically Signed) Final Date: 08 February 2023 12:13
--- NOTE | 2023-02-08 12:23 | P.PN ---
Subjective Progress Note Date: 02/08/23 This is a 72-year-old male patient who presents to ER with concerns of altered mental status patient does not recall that history of event is obtained from medical record. According to records Y stated that patient had facial droop starting around 5 PM with some confused speech initially did not call EMS the patient continued to be off balance and speech difficulty which prompted her to call EMS upon arrival patient did not have facial droop but was noted to be alert and oriented to only 2. Patient has a past medical history of coronary artery disease, CVA, dementia, diabetes mellitus, I disorder, GERD, hearing disorder, prostate disorder, hypertension, hyperlipidemia and diabetes mellitus type 1 in which he usually is maintained on insulin pump the patient was recently admitted here due to elevated blood sugars in pump not working properly patient was sent home on NovoLog sliding scale and long-acting insulin. Per patient he has not been able to get into endocrinology to receive new pump parts. Per patient but sugars have been elevated around the 300s parietal blood sugar 192. Initial workup in the ER showing EKG of sinus rhythm. Head CT completed showing no acute hemorrhage hydrocephalus or mass effect. CTA showing mild bilateral ICA stenosis from multiple sclerosis. Chest x-ray completed showing no acute cardiopulmonary disease. Creatinine 1.03 bun 22. White blood cell 7.5 hemoglobin 13.7. This time patient is resting comfortably in bed. Patient is alert and oriented to 2. Patient denies any chest pain or shortness of breath. Patient denies nausea vomiting or diarrhea. Patient denies any urinary burning or frequency. At this time cardiology and neurology services will be consulted 2-D echo will be ordered PT OT services consulted. Home meds resumed On 02/08/2023 patient was seen and examined on the medical floor he is alert and oriented 3 in no apparent distress he is still complaining of dizziness and unsteady gaits otherwise he denies any complaints at this time there is no fever or chills no headache, no chest pain no shortness of breath no cough no nausea or vomiting no abdominal pain no diarrhea and no urinary symptoms Objective - Vital Signs Vital signs: Vital Signs Temp 97.9 F 02/08/23 11:23 Pulse 62 02/08/23 11:23 Resp 16 02/08/23 11:23 BP 135/77 02/08/23 11:23 Pulse Ox 97 02/08/23 11:23 FiO2 Intake & Output 02/07/23 02/08/23 02/08/23 18:59 06:59 18:59 Intake Total 118 Output Total 200 450 Balance -200 -332 Weight 99.79 kg 99.79 kg Intake: Oral 118 Output: Urine 200 450 - Exam In general patient is alert and oriented 3 in no apparent distress Head normocephalic and atraumatic Neck supple no JVD no goiter Lungs clear to auscultation bilaterally no wheezing or crackles Heart regular rate and rhythm S1-S2, no rub or gallop Abdomen is soft nontender nondistended positive bowel sounds no hepatosplenomegaly Extremities no edema no cyanosis or clubbing Neuro no gross focal deficit - Labs CBC & Chem 7: 02/08/23 08:09 02/08/23 08:09 Labs: Abnormal Lab Results - Last 24 Hours (Table) 02/07/23 02/07/23 02/07/23 Range/Units 01:42 12:21 16:57 RBC (4.30-5.90) m/uL Potassium (3.5-5.1) mmol/L Carbon Dioxide (22-30) mmol/L Glucose (74-99) mg/dL POC Glucose (mg/dL) 330 H 366 H (70-110) mg/dL Hemoglobin A1c 9.8 H (<=6.0) % Total Protein (6.3-8.2) g/dL Albumin (3.5-5.0) g/dL 02/07/23 02/08/23 02/08/23 Range/Units 20:19 06:05 08:09 RBC 4.19 L (4.30-5.90) m/uL Potassium (3.5-5.1) mmol/L Carbon Dioxide (22-30) mmol/L Glucose (74-99) mg/dL POC Glucose (mg/dL) 339 H 135 H (70-110) mg/dL Hemoglobin A1c (<=6.0) % Total Protein (6.3-8.2) g/dL Albumin (3.5-5.0) g/dL 02/08/23 02/08/23 Range/Units 08:09 11:29 RBC (4.30-5.90) m/uL Potassium 3.4 L (3.5-5.1) mmol/L Carbon Dioxide 31 H (22-30) mmol/L Glucose 178 H (74-99) mg/dL POC Glucose (mg/dL) 322 H (70-110) mg/dL Hemoglobin A1c (<=6.0) % Total Protein 6.1 L (6.3-8.2) g/dL Albumin 3.3 L (3.5-5.0) g/dL Assessment and Plan Assessment: 1. Altered mental status changes 2. Diabetes mellitus type 1 with hyperglycemia. Patient normally maintained on insulin pump but has been off insulin pump maintained on NovoLog and sliding scale coverage 3. History of essential hypertension 4. History of hyperlipidemia 5. History of BPH 6. History of dementia 7. History of peripheral neuropathy DVT prophylaxis Lovenox. GI prophylaxis Protonix Cardiology and neurology services consulted 2-D echo ordered CTA completed Repeat labs ordered Home meds resumed PT OT services consulted
--- NOTE | 2023-02-08 12:34 | P.CRDCN ---
History of Present Illness Consult date: 02/08/23 Reason for Consult (text): TIA History of present illness: The patient is a 72-year-old male who follows in the office with Dr. LYNN Bhardwaj, who presented to the hospital with mental status changes. These were occurring over the course of 24 hours where the patient had garbled speech and possible facial droop. Ultimately the patient presented to the emergency room when the symptoms did not resolve after 16 hours. Cardiology was consulted for suspected TIA. DIAGNOSTICS: EKG shows sinus rhythm with nonspecific ST and T-wave abnormality CT of the brain shows no acute hemorrhage, hydrocephalus, mass effect Chest x-ray shows no acute cardiopulmonary process CT angiogram of the neck shows mild stenosis in the bilateral internal carotid arteries. No significant stenosis in the vertebral arteries Echocardiogram reveals preserved LV function with LVH Lab data: WBC 6.8, hemoglobin 13.1, hematocrit 40.7, platelet 177, sodium 138, potassium 3.4, BUN 18, creatinine 0.87, AST 37, ALT 30 REVIEW OF SYSTEMS: No fever or chills. No cough or expectoration. No diaphoresis. Patient denies headache, dizziness, blurred vision, double vision. Patient denies any stomach discomfort. No nausea, vomiting. No hematochezia. No hematemesis. Denies any black stools or blood in his stools. Denies dysuria or hematuria. No muscle weakness or numbness. Denies chest pain or chest pressure. Denies difficulty breathing. Positive for memory loss PHYSICAL EXAMINATION: This is a 72-year-old male in no apparent distress at the time of my examination. HEENT: Head is atraumatic, normocephalic. Pupils are equal, round. There is no jugular venous distention. No carotid bruit is heard. CHEST EXAMINATION: Lungs are clear to auscultation. No chest wall tenderness is noted on palpation or with deep breathing. HEART EXAMINATION: Heart regular rate and rhythm. S1, S2 heard. No murmurs, gallops or rub. ABDOMEN: Soft, nontender. Bowel sounds are heard. No organomegaly noted. EXTREMITIES: +1 left lower extremity peripheral pulses. No right lower extre mity peripheral pulses. No edema and no calf tenderness noted. NEUROLOGIC EXAMINATION: Patient is awake, alert and oriented x3. Patient reports memory loss. FINAL ASSESSMENT AND PLAN: Altered mental status changes History of TIA Coronary artery disease Peripheral artery disease Hypertension Hyperlipidemia Dementia Orthostatic hypotension PLAN: Discontinue Florinef and midodrine If the patient develops hypotension, discontinue hydrochlorothiazide and reduce MISTY inhibitor Consider discontinuing alpha rosalia Recommend loop monitor placement Further recommendations to be based upon clinical course I am dictating on behalf of Dr Javon Rocha's history/physical and assessment/plan. Past Medical History Past Medical History: Blood Disorder, Coronary Artery Disease (CAD), CVA/TIA, Dementia, Diabetes Mellitus, Eye Disorder, GERD/Reflux, Hearing Disorder / Deafness, Hyperlipidemia, Hypertension, Neurologic Disorder, Osteoarthritis (OA), Prostate Disorder, Renal Disease, Syncope Additional Past Medical History / Comment(s): IDDM type I with insulin pump, bilateral legs/feet/arms and hand neuropathy, chronic renal disease, difficulty swallowing, RLS, factor V, early dementia, BPH, bilateral tinnitis, R eye retinal bleeds x2, chronic low back pain with bilateral sciatica which is worse on the right side, bilateral shoulder and cervical pain, possible TIAs (01/13) History of Any Multi-Drug Resistant Organisms: None Reported Past Surgical History: Adenoidectomy, Back Surgery, Heart Catheterization, Orthopedic Surgery, Tonsillectomy Additional Past Surgical History / Comment(s): Lumbar laminectomy, R knee cartildge surgery, bilateral carpal tunnel released, sen wrist dequevain surgery, R rotator cuff repair, L foot pins and plates, EGD, colonoscopy, R eye laser eye surgery for retinal bleeds, bilateral cataract removals/lens implants, L arm broke- did not operate on yet Past Anesthesia/Blood Transfusion Reactions: Motion Sickness Past Psychological History: Depression Smoking Status: Former smoker Past Alcohol Use History: None Reported Past Drug Use History: None Reported - Past Family History Brother(s) Family Medical History: Blood Disorder, Deep Vein Thrombosis (DVT) Mother Additional Family Medical History / Comment(s): Mother had palsey Father Family Medical History: COPD, Myocardial Infarction ([place]) Additional Family Medical History / Comment(s): Father of COPD/[place] at the age of 72 yrs. Medications and Allergies Home Medications Medication Instructions Recorded Confirmed Type Aspirin 81 mg PO DAILY 10/16/13 02/07/23 History Pantoprazole [Protonix] 40 mg PO BID 01/20/18 02/07/23 History rOPINIRole HCL [Requip] 0.5 mg PO HS 30 Days #30 tablet 05/09/18 02/07/23 Rx Tamsulosin [Flomax] 0.4 mg PO HS 11/09/18 02/07/23 History Cetirizine HCl [Zyrtec] 10 mg PO DAILY 08/21/22 02/07/23 History Citalopram Hydrobromide 40 mg PO DAILY 08/21/22 02/07/23 History [Citalopram HBr] Fludrocortisone Acetate 0.2 mg PO DAILY 08/21/22 02/07/23 History Docusate [Colace] 300 mg PO DAILY 10/09/22 02/07/23 History Memantine [Namenda] 5 mg PO BID 10/09/22 02/07/23 History Acetaminophen [Tylenol Extra 1,000 mg PO BID 11/14/22 02/07/23 History Strength] Atorvastatin [Lipitor] 40 mg PO HS 11/14/22 02/07/23 History Finasteride [Proscar] 5 mg PO DAILY 12/27/22 02/07/23 History Clopidogrel [Plavix] 75 mg PO DAILY 30 Days #30 tab 01/03/23 02/07/23 Rx Lisinopril-Hctz 20-12.5 mg 1 tab PO DAILY 01/28/23 02/07/23 History [Zestoretic 20-12.5] INSULIN ASPART (NovoLOG) [NovoLOG See Protocol SQ ACHS #1 pen 01/31/23 02/07/23 Rx (formulary)] Insulin Degludec [Tresiba 22 units SQ DAILY #1 pen 01/31/23 02/07/23 Rx Flextouch U-100 Pen] Midodrine [ProAmatine] 5 mg PO AC-TID 30 Days #90 tab 01/31/23 02/07/23 Rx Nystatin 100,000Unit/gm Cream 1 applic TOPICAL BID 02/07/23 02/07/23 History [Mycostatin Cream] Allergies Allergy/AdvReac Type Severity Reaction Status Date / Time No Known Allergies Allergy Verified 02/07/23 06:59 Physical Exam Vitals: Vital Signs Temp Pulse Pulse Resp BP BP Pulse Ox 02/08/23 11:23 97.9 F 62 16 135/77 97 02/08/23 08:00 97.8 F 66 18 121/69 99 02/08/23 04:00 97.8 F 62 16 136/71 95 02/07/23 23:26 97.8 F 77 18 132/71 97 02/07/23 20:00 98.1 F 72 18 120/74 97 02/07/23 16:09 64 18 128/66 97 02/07/23 12:36 65 16 142/106 96 Intake and Output 02/07/23 02/08/23 02/08/23 22:59 06:59 14:59 Intake Total 118 Output Total 200 450 Balance -200 -332 Intake: Oral 118 Output: Urine 200 450 Other: Weight 99.79 kg 99.79 kg Results 02/08/23 08:09 02/08/23 08:09 Cardiac Enzymes 02/08/23 Range/Units 08:09 AST 37 (17-59) U/L CBC 02/08/23 Range/Units 08:09 WBC 6.8 (3.8-10.6) k/uL RBC 4.19 L (4.30-5.90) m/uL Hgb 13.1 (13.0-17.5) gm/dL Hct 40.7 (39.0-53.0) % Plt Count 177 (150-450) k/uL Comprehensive Metabolic Panel 02/08/23 Range/Units 08:09 Sodium 138 (137-145) mmol/L Potassium 3.4 L (3.5-5.1) mmol/L Chloride 100 (98-107) mmol/L Carbon Dioxide 31 H (22-30) mmol/L BUN 18 (9-20) mg/dL Creatinine 0.87 (0.66-1.25) mg/dL Glucose 178 H (74-99) mg/dL Calcium 8.5 (8.4-10.2) mg/dL AST 37 (17-59) U/L ALT 30 (4-49) U/L Alkaline Phosphatase 57 (38-126) U/L Total Protein 6.1 L (6.3-8.2) g/dL Albumin 3.3 L (3.5-5.0) g/dL Current Medications Generic Name Dose Route Start Last Admin Trade Name Freq PRN Reason Stop Dose Admin Acetaminophen 1,000 mg 02/07/23 10:01 Acetaminophen Tab 500 Mg Tab PO BID PRN Fever Aspirin 81 mg 02/08/23 09:00 02/08/23 07:50 Aspirin 81 Mg PO 81 mg DAILY MILLY Administration Atorvastatin Calcium 40 mg 02/07/23 21:00 02/07/23 19:40 Atorvastatin 40 Mg Tab PO 40 mg HS MILLY Administration Citalopram Hydrobromide 40 mg 02/08/23 09:00 02/08/23 07:50 Citalopram Hydrobromide 20 Mg Tab PO 40 mg DAILY MILLY Administration Dextrose/Water 25 ml 02/07/23 09:35 Dextrose 50% Syringe 50 Ml IVP PER PROTOCOL PRN Hypoglycemia Protocol Dextrose/Water 50 ml 02/07/23 09:35 Dextrose 50% Syringe 50 Ml IVP PER PROTOCOL PRN Hypoglycemia Protocol Docusate Sodium 300 mg 02/08/23 09:00 02/08/23 07:50 Docusate 100 Mg Cap PO 300 mg DAILY MILLY Administration Enoxaparin Sodium 40 mg 02/08/23 09:00 02/08/23 07:51 Enoxaparin 40 Mg/0.4 Ml Syringe SQ 40 mg DAILY MILLY Administration Finasteride 5 mg 02/08/23 09:00 02/08/23 07:50 Finasteride 5 Mg Tab PO 5 mg DAILY MILLY Administration Lisinopril/HCTZ 1 each 02/08/23 09:00 02/08/23 07:51 Lisinopril-Hctz 20-12.5 Mg 1 Each Tab PO 1 each DAILY MILLY Administration Insulin Aspart 0 unit 02/07/23 12:30 02/08/23 11:48 Insulin Aspart (Novolog) 100 Unit/Ml Vial SQ 8 unit ACHS MILLY Administration Protocol Insulin Detemir 22 unit 02/07/23 17:45 02/08/23 06:28 Insulin Detemir (Levemir) 100 Unit/Ml Syr SQ 22 unit DAILY@0700 MILLY Administration Loratadine 10 mg 02/08/23 09:00 02/08/23 07:51 Loratadine 10 Mg Tab PO 10 mg DAILY MILLY Administration Memantine 5 mg 02/07/23 21:00 02/08/23 07:50 Memantine 5 Mg Tab PO 5 mg BID MILLY Administration Miscellaneous Information 1 each 02/08/23 09:41 Potassium Replacement Protocol 1 Each Misc MISCELLANE DAILY PRN Per Protocol Protocol Naloxone HCl 0.2 mg 02/07/23 05:34 Naloxone 0.4 Mg/Ml 1 Ml Vial IV Q2M PRN Opioid Reversal Pantoprazole Sodium 40 mg 02/07/23 17:30 02/08/23 06:27 Pantoprazole 40 Mg Tablet PO 40 mg AC-BID MILLY Administration Ropinirole HCl 0.5 mg 02/07/23 21:00 02/07/23 19:40 Ropinirole Hcl 1 Mg Tab PO 0.5 mg HS MILLY Administration Tamsulosin HCl 0.4 mg 02/07/23 21:00 02/07/23 19:40 Tamsulosin 0.4 Mg Cap.Er.24h PO 0.4 mg HS MILLY Administration Ticagrelor 90 mg 02/07/23 21:00 02/08/23 07:50 Ticagrelor 90 Mg Tab PO 90 mg BID MILLY Administration Intake and Output 02/07/23 02/08/23 02/08/23 22:59 06:59 14:59 Intake Total 118 Output Total 200 450 Balance -200 -332 Intake: Oral 118 Output: Urine 200 450 Other: Weight 99.79 kg 99.79 kg Patient Weight 02/09/23 06:59 Weight 99.79 kg 02/08/23 08:09 02/08/23 08:09
[2023-02-08 15:57] LABS: Glucose,Whole Blood 226 mg/dL (70-110)
[2023-02-08] MEDS: FOLIC ACID 1 MG TAB PO SCH (16:08)
[2023-02-08] MEDS: ATORVASTATIN 40 MG TAB PO SCH (19:38)
[2023-02-08] MEDS: TAMSULOSIN 0.4 MG CAP.ER.24H PO SCH (19:38)
[2023-02-08 20:18] LABS: Glucose,Whole Blood 243 mg/dL (70-110)
[2023-02-09 06:11] LABS: Glucose,Whole Blood 361 mg/dL (70-110)
[2023-02-09] MEDS: INSULIN DETEMIR (LEVEMIR) 100 UNIT/ML SYR SQ SCH (06:28)
[2023-02-09] MEDS: INSULIN ASPART (NovoLOG) 100 UNIT/ML VIAL SQ SCH ×4 (06:28→20:35)
[2023-02-09] MEDS: PANTOPRAZOLE 40 MG TABLET PO SCH ×2 (06:29→16:45)
[2023-02-09] MEDS: ENOXAPARIN 40 MG/0.4 ML SYRINGE SQ SCH (08:17)
[2023-02-09] MEDS: LISINOPRIL-HCTZ 20-12.5 MG 1 EACH TAB PO SCH (08:18)
[2023-02-09] MEDS: CITALOPRAM HYDROBROMIDE 20 MG TAB PO SCH (08:18)
[2023-02-09] MEDS: FINASTERIDE 5 MG TAB PO SCH (08:18)
[2023-02-09] MEDS: MEMANTINE 5 MG TAB PO SCH ×2 (08:18→20:37)
[2023-02-09] MEDS: DOCUSATE 100 MG CAP PO SCH (08:18)
[2023-02-09] MEDS: LORATADINE 10 MG TAB PO SCH (08:18)
[2023-02-09] MEDS: FOLIC ACID 1 MG TAB PO SCH (08:18)
[2023-02-09] MEDS: ASPIRIN 81 MG PO SCH (08:18)
[2023-02-09] MEDS: TICAGRELOR 90 MG TAB PO SCH ×2 (08:18→20:37)
--- NOTE | 2023-02-09 09:44 | P.PN ---
Subjective Progress Note Date: 02/09/23 This is a 72-year-old male patient who presents to ER with concerns of altered mental status patient does not recall that history of event is obtained from medical record. According to records Y stated that patient had facial droop starting around 5 PM with some confused speech initially did not call EMS the patient continued to be off balance and speech difficulty which prompted her to call EMS upon arrival patient did not have facial droop but was noted to be alert and oriented to only 2. Patient has a past medical history of coronary artery disease, CVA, dementia, diabetes mellitus, I disorder, GERD, hearing disorder, prostate disorder, hypertension, hyperlipidemia and diabetes mellitus type 1 in which he usually is maintained on insulin pump the patient was recently admitted here due to elevated blood sugars in pump not working properly patient was sent home on NovoLog sliding scale and long-acting insulin. Per patient he has not been able to get into endocrinology to receive new pump parts. Per patient but sugars have been elevated around the 300s parietal blood sugar 192. Initial workup in the ER showing EKG of sinus rhythm. Head CT completed showing no acute hemorrhage hydrocephalus or mass effect. CTA showing mild bilateral ICA stenosis from multiple sclerosis. Chest x-ray completed showing no acute cardiopulmonary disease. Creatinine 1.03 bun 22. White blood cell 7.5 hemoglobin 13.7. This time patient is resting comfortably in bed. Patient is alert and oriented to 2. Patient denies any chest pain or shortness of breath. Patient denies nausea vomiting or diarrhea. Patient denies any urinary burning or frequency. At this time cardiology and neurology services will be consulted 2-D echo will be ordered PT OT services consulted. Home meds resumed On 02/08/2023 patient was seen and examined on the medical floor he is alert and oriented 3 in no apparent distress he is still complaining of dizziness and unsteady gaits otherwise he denies any complaints at this time there is no fever or chills no headache, no chest pain no shortness of breath no cough no nausea or vomiting no abdominal pain no diarrhea and no urinary symptoms On 02/09/2023 patient's alert and oriented 3. Medications to be adjusted per cardiology awaiting further input. Temp 98, heart rate 66, respiratory rate 20, blood pressure 109/67 with pulse ox 98% on room air Objective - Vital Signs Vital signs: Vital Signs Temp 98 F 02/09/23 04:00 Pulse 66 02/09/23 04:00 Resp 16 02/09/23 04:00 BP 129/72 02/09/23 04:00 Pulse Ox 99 02/09/23 04:00 FiO2 Intake & Output 02/08/23 02/09/23 02/09/23 18:59 06:59 18:59 Intake Total 894 Output Total 450 Balance 444 Weight 99.79 kg Intake: Oral 894 Output: Urine 450 Other: # Voids 1 1 - Exam In general patient is alert and oriented 3 in no apparent distress Head normocephalic and atraumatic Neck supple no JVD no goiter Lungs clear to auscultation bilaterally no wheezing or crackles Heart regular rate and rhythm S1-S2, no rub or gallop Abdomen is soft nontender nondistended positive bowel sounds no hepatosplenomegaly Extremities no edema no cyanosis or clubbing Neuro no gross focal deficit - Labs CBC & Chem 7: 02/08/23 08:09 02/08/23 08:09 Labs: Abnormal Lab Results - Last 24 Hours (Table) 02/08/23 02/08/23 02/08/23 Range/Units 08:09 08:09 11:29 RBC 4.19 L (4.30-5.90) m/uL Potassium 3.4 L (3.5-5.1) mmol/L Carbon Dioxide 31 H (22-30) mmol/L Glucose 178 H (74-99) mg/dL POC Glucose (mg/dL) 322 H (70-110) mg/dL Total Protein 6.1 L (6.3-8.2) g/dL Albumin 3.3 L (3.5-5.0) g/dL 02/08/23 02/08/23 02/09/23 Range/Units 15:57 20:17 06:10 RBC (4.30-5.90) m/uL Potassium (3.5-5.1) mmol/L Carbon Dioxide (22-30) mmol/L Glucose (74-99) mg/dL POC Glucose (mg/dL) 226 H 243 H 361 H (70-110) mg/dL Total Protein (6.3-8.2) g/dL Albumin (3.5-5.0) g/dL Assessment and Plan Assessment: 1. Altered mental status changes 2. Diabetes mellitus type 1 with hyperglycemia. Patient normally maintained on insulin pump but has been off insulin pump maintained on NovoLog and sliding scale coverage 3. History of essential hypertension 4. History of hyperlipidemia 5. History of BPH 6. History of dementia 7. History of peripheral neuropathy DVT prophylaxis Lovenox. GI prophylaxis Protonix Cardiology and neurology services consulted 2-D echo ordered CTA completed Repeat labs ordered Home meds resumed PT OT services consulted
[2023-02-09 11:40] LABS: Glucose,Whole Blood 291 mg/dL (70-110)
--- NOTE | 2023-02-09 12:34 | P.PN ---
Subjective Progress Note Date: 02/09/23 This is Suman Angelo NP, I'm dictating on behalf of Dr. Rocha's H&P and A&P. Patient was interviewed and examined. Patient is a pleasant 72-year-old male who presented to the hospital with mental status changes. Cardiology was consulted for suspected TIA. Yesterday we discontinue the patient's Florinef and midodrine. He appears to have tolerated this well. His blood pressure is within normal limits today. Patient reports that he is feeling okay today. He has no complaints of chest pain, shortness of breath, heart palpitations, dizziness, or passing out. Patient appears to be mentally clear and is able to answer questions appropriately. GENERAL: Well-appearing, well-nourished and in no acute distress. NECK: Supple without JVD or thyromegaly. LUNGS: Breath sounds clear to auscultation bilaterally. Respiration equal and unlabored. No wheezes, rales or rhonchi. HEART: Regular rate and rhythm without murmurs, rubs or gallops. S1 and S2 heard. EXTREMITIES: Normal range of motion, no edema. No clubbing or cyanosis. Peripheral pulses intact and strong. VITALS: Temp 98.0, pulse 66, respirations 20, blood pressure 109/67, O2 saturation 98% on room air TELEMETRY: Normal sinus rhythm LABS: No new labs since 02/08/2023 IMPRESSION: 1. Altered mental status 2. History of TIA 3. Coronary artery disease 4. Peripheral artery disease 5. Hypertension 6. Hyperlipidemia 7. Dementia 8. Orthostatic hypotension PLAN: Case discussed with internal medicine. DC Zestoretic. Start lisinopril 10 mg daily. Check orthostatic vital signs daily. Further recommendations based on patient's clinical course. Objective - Vital Signs Vital signs: Vital Signs Temp 97.8 F 02/09/23 11:50 Pulse 74 02/09/23 11:50 Resp 18 02/09/23 11:50 BP 164/71 02/09/23 11:50 Pulse Ox 98 02/09/23 11:50 FiO2 Intake & Output 02/08/23 02/09/23 02/09/23 18:59 06:59 18:59 Intake Total 894 240 Output Total 450 Balance 444 240 Weight 99.79 kg Intake: Oral 894 240 Output: Urine 450 Other: Voiding Method Toilet Urinal # Voids 1 1 - Labs CBC & Chem 7: 02/08/23 08:09 02/08/23 08:09 Labs: Abnormal Lab Results - Last 24 Hours (Table) 02/08/23 02/08/23 02/09/23 Range/Units 15:57 20:17 06:10 POC Glucose (mg/dL) 226 H 243 H 361 H (70-110) mg/dL 02/09/23 Range/Units 11:38 POC Glucose (mg/dL) 291 H (70-110) mg/dL
--- NOTE | 2023-02-09 13:31 | PN ---
PROGRESS NOTE This is an update. SUBJECTIVE: The patient was admitted with syncope. He was on Florinef 0.2 mg p.o. daily, midodrine 10 mg 3 to 4 times a day, and lisinopril/hydrochlorothiazide 20/25 mg p.o. daily. He is a diabetic, but his protein negative in the UA. He underwent an orthostatic check today and his supine blood pressure was greater than 160. Sitting blood pressure was about 100 to 110 mmHg. Standing blood pressure was 80 mmHg. IMPRESSION: 1. Supine hypertension with orthostatic hypotension syndrome, severe. 2. Failed combination treatment with Florinef 0.2 mg daily, midodrine 10 mg 3 to 4 times a day, and lisinopril/hydrochlorothiazide. PLAN: 1. Suggest discontinue Florinef. 2. Discontinue midodrine. 3. Discontinue lisinopril/hydrochlorothiazide. 4. Avoid nitrates. 5. Avoid diuretics. 6. Treat supine nighttime hypertension to minimize nighttime in tile and marble setter natriuresis, to minimize daytime periods of orthostasis. 7. Check cortisol level. 8. I would treat him with short-acting MISTY inhibitor, preferably enalapril 10 to 20 mg to be taken once daily only at night to treat supine at nighttime hypertension. 9. In the hospital, we do not have enalapril; therefore, I will treat him with captopril 12.5 mg at 9:00 p.m., but at discharge, I would switch to enalapril 20 mg at 9:00 p.m. only. No antihypertensives in the morning, follow thereafter. MMODL / IJN: [id number] /
[2023-02-09 16:15] LABS: Glucose,Whole Blood 329 mg/dL (70-110)
[2023-02-09 19:49] LABS: Glucose,Whole Blood 288 mg/dL (70-110)
[2023-02-09] MEDS: ATORVASTATIN 40 MG TAB PO SCH (20:37)
[2023-02-09] MEDS: TAMSULOSIN 0.4 MG CAP.ER.24H PO SCH (20:37)
--- NOTE | 2023-02-10 00:52 | P.PN ---
Subjective Progress Note Date: 02/09/23 Patient was seen for a follow-up. Patient is followed up with financial services education consultant. Patient has developed orthostatic hypotension, and also supine hypertension. Cardiology has started Captopril for supine hypertension. Patient has been diagnosed with probable dysautonomia with supine hypertension. Patient has severe orthostatic hypotension when standing. Objective - Vital Signs Vital signs: Vital Signs Temp 98.2 F 02/09/23 16:00 Pulse 73 02/09/23 16:00 Resp 18 02/09/23 16:00 BP 104/67 02/09/23 16:00 Pulse Ox 97 02/09/23 16:00 FiO2 Intake & Output 02/08/23 02/09/23 02/09/23 18:59 06:59 18:59 Intake Total 894 780 Output Total 450 Balance 444 780 Weight 99.79 kg Intake: Oral 894 780 Output: Urine 450 Other: Voiding Method Toilet Urinal # Voids 1 1 2 - Exam Patient is laying comfortably in the bed. Speech and language functions are normal. Cranial nerves are normal. Visual wu are full, face is symmetric. On muscle strength testing, patient has left shoulder stiffness from previous surgery. Otherwise the strength is normal. Sensations to touch is equal with no neglect. No ataxia for [id number] testing. - Labs CBC & Chem 7: 02/08/23 08:09 02/08/23 08:09 Labs: Abnormal Lab Results - Last 24 Hours (Table) 02/08/23 02/09/23 02/09/23 Range/Units 20:17 06:10 11:38 POC Glucose (mg/dL) 243 H 361 H 291 H (70-110) mg/dL 02/09/23 Range/Units 16:14 POC Glucose (mg/dL) 329 H (70-110) mg/dL Assessment and Plan Assessment: * Probable recurrent TIA. Patient presented with transient encephalopathy with gibberish speech, drooling but without any other lateralizing symptoms. Patient's symptoms resolved in < 18 hours. Patient's current NIH stroke seen is 0. Patient has just recently presented on 12/28/2022 as well with possible TIA with expressive aphasia and right hand numbness, that lasted for 1-1/2 hours. The day prior (12/27/2022), he had transient facial droop and right tongue numbness, that lasted for an hour. * Orthostatic hypotension, with supine hypertension, possible dysautonomia. * Insulin-dependent diabetes * Mild cognitive impairment * X tobacco use * Peripheral neuropathy * History of syncopal spells, probably due to #2 Plan: * Patient already had all workup completed in the recent admission. * CTA of head showed no significant stenosis. CTA of the neck showed mild bilateral ICA stenosis from atherosclerosis. * It is unclear if patient really has a TIA, or encephalopathy from dysautonomia. Patient on the last admission was switched from aspirin to Plavix. He had this current episode on Plavix. Recommend Brilinta 90 mg twice a day for 30 days, then switch back to Plavix 75 mg. I do not believe patient needs long-term Brilinta, as stroke workup has been negative. * Patient had a CARLOS performed last admission, which was normal. Also had an EEG which was normal. No need to repeat. * UA is negative. * Hemoglobin A1c 9.8 (first and, as A1c was 8.3 last admit 12/29/2022). Recommend optimize additional of the control of diabetes to target A1c < 7.0. * Check B12, folate. TSH is normal. * Patient to undergo event monitor placement for 30 days to rule out PAF prior to discharge. * Neurologically clear with the above recommendations. Dr. Harish Hoover to start neurology service from the morning.
[2023-02-10 05:43] LABS: Glucose,Whole Blood 348 mg/dL (70-110)
[2023-02-10] MEDS: INSULIN ASPART (NovoLOG) 100 UNIT/ML VIAL SQ SCH ×4 (06:13→20:53)
[2023-02-10] MEDS: INSULIN DETEMIR (LEVEMIR) 100 UNIT/ML SYR SQ SCH (06:13)
[2023-02-10] MEDS: PANTOPRAZOLE 40 MG TABLET PO SCH ×2 (06:13→16:39)
[2023-02-10] MEDS ORDERED: lisinopriL 10 MG TAB PO SCH (09:00)
[2023-02-10] MEDS: CITALOPRAM HYDROBROMIDE 20 MG TAB PO SCH (09:20)
[2023-02-10] MEDS: FOLIC ACID 1 MG TAB PO SCH (09:21)
[2023-02-10] MEDS: TICAGRELOR 90 MG TAB PO SCH ×2 (09:21→20:53)
[2023-02-10] MEDS: LORATADINE 10 MG TAB PO SCH (09:21)
[2023-02-10] MEDS: FINASTERIDE 5 MG TAB PO SCH (09:21)
[2023-02-10] MEDS: ASPIRIN 81 MG PO SCH (09:21)
[2023-02-10] MEDS: MEMANTINE 5 MG TAB PO SCH ×2 (09:21→20:53)
[2023-02-10] MEDS: ENOXAPARIN 40 MG/0.4 ML SYRINGE SQ SCH (09:21)
[2023-02-10] MEDS: DOCUSATE 100 MG CAP PO SCH (09:21)
[2023-02-10 11:34] LABS: Glucose,Whole Blood 301 mg/dL (70-110)
--- NOTE | 2023-02-10 16:29 | P.PN ---
Subjective Progress Note Date: 02/10/23 Patient is a pleasant 72-year-old male who presented to the hospital with mental status changes. Cardiology was consulted for suspected TIA. Yesterday we discontinue the patient's Florinef and midodrine. He appears to have tolerated this well. His blood pressure is within normal limits today. Patient reports that he is feeling okay today. He has no complaints of chest pain, shortness of breath, heart palpitations, dizziness, or passing out. Patient appears to be mentally clear and is able to answer questions appropriately. VITALS: Temp 98.0, pulse 66, respirations 20, blood pressure 109/67, O2 saturation 98% on room air TELEMETRY: Normal sinus rhythm LABS: No new labs since 02/08/202302/10 Patient is seen today in follow-up. Lisinopril was discontinued yesterday and patient started on captopril 12.5 mg to be given at 10 PM to treat the supine hypertension at night and reduce fluctuation in his blood pressure. Blood pressure this morning 97/57 and heart rate in the 60s and 70s. GENERAL: Well-appearing, well-nourished and in no acute distress. NECK: Supple without JVD or thyromegaly. LUNGS: Breath sounds clear to auscultation bilaterally. Respiration equal and unlabored. No wheezes, rales or rhonchi. HEART: Regular rate and rhythm without murmurs, rubs or gallops. S1 and S2 heard. EXTREMITIES: Normal range of motion, no edema. No clubbing or cyanosis. Peripheral pulses intact and strong. IMPRESSION: 1. Altered mental status 2. History of TIA 3. Coronary artery disease 4. Peripheral artery disease 5. Hypertension 6. Hyperlipidemia 7. Dementia 8. Orthostatic hypotension PLAN: Case discussed with internal medicine. Continue current cardiac medications Patient is cleared for discharge from cardiology may follow-up in the office in 2 weeks. Patient has been ordered for event monitor prior to discharge. Nurse practitioner note has been reviewed, I agree with the documented findings and plan of care. Patient was seen and examined. Objective - Vital Signs Vital signs: Vital Signs Temp 97.9 F 02/10/23 09:20 Pulse 70 02/10/23 11:50 Resp 18 02/10/23 11:50 BP 97/57 02/10/23 11:50 Pulse Ox 98 02/10/23 11:50 FiO2 Intake & Output 02/09/23 02/10/23 02/10/23 18:59 06:59 18:59 Intake Total 898 118 Balance 898 118 Intake: Oral 898 118 Other: Voiding Method Toilet Toilet Toilet Urinal Urinal Urinal # Voids 2 - Labs CBC & Chem 7: 02/08/23 08:09 02/08/23 08:09 Labs: Abnormal Lab Results - Last 24 Hours (Table) 02/09/23 02/09/23 02/10/23 Range/Units 16:14 19:48 05:42 POC Glucose (mg/dL) 329 H 288 H 348 H (70-110) mg/dL 02/10/23 Range/Units 11:33 POC Glucose (mg/dL) 301 H (70-110) mg/dL
[2023-02-10 16:31] LABS: Glucose,Whole Blood 319 mg/dL (70-110)
--- NOTE | 2023-02-10 17:30 | P.PN ---
Subjective Progress Note Date: 02/10/23 This is a 72-year-old male patient who presents to ER with concerns of altered mental status patient does not recall that history of event is obtained from medical record. According to records Y stated that patient had facial droop starting around 5 PM with some confused speech initially did not call EMS the patient continued to be off balance and speech difficulty which prompted her to call EMS upon arrival patient did not have facial droop but was noted to be alert and oriented to only 2. Patient has a past medical history of coronary artery disease, CVA, dementia, diabetes mellitus, I disorder, GERD, hearing disorder, prostate disorder, hypertension, hyperlipidemia and diabetes mellitus type 1 in which he usually is maintained on insulin pump the patient was recently admitted here due to elevated blood sugars in pump not working properly patient was sent home on NovoLog sliding scale and long-acting insulin. Per patient he has not been able to get into endocrinology to receive new pump parts. Per patient but sugars have been elevated around the 300s parietal blood sugar 192. Initial workup in the ER showing EKG of sinus rhythm. Head CT completed showing no acute hemorrhage hydrocephalus or mass effect. CTA showing mild bilateral ICA stenosis from multiple sclerosis. Chest x-ray completed showing no acute cardiopulmonary disease. Creatinine 1.03 bun 22. White blood cell 7.5 hemoglobin 13.7. This time patient is resting comfortably in bed. Patient is alert and oriented to 2. Patient denies any chest pain or shortness of breath. Patient denies nausea vomiting or diarrhea. Patient denies any urinary burning or frequency. At this time cardiology and neurology services will be consulted 2-D echo will be ordered PT OT services consulted. Home meds resumed On 02/08/2023 patient was seen and examined on the medical floor he is alert and oriented 3 in no apparent distress he is still complaining of dizziness and unsteady gaits otherwise he denies any complaints at this time there is no fever or chills no headache, no chest pain no shortness of breath no cough no nausea or vomiting no abdominal pain no diarrhea and no urinary symptoms On 02/09/2023 patient's alert and oriented 3. Medications to be adjusted per cardiology awaiting further input. Temp 98, heart rate 66, respiratory rate 20, blood pressure 109/67 with pulse ox 98% on room air On 02/10/2023 patient was seen and examined on the telemetry floor he is alert and oriented 3 in no apparent distress there is no fever or chills no headache or dizziness no chest pain no shortness of breath no cough no nausea or vomiting no abdominal pain no diarrhea and no urinary symptoms, recommendation by cardiology is for lisinopril 10 mg daily, discontinue Florinef and midodrine, proceed with cardiac monitoring as outpatient. Possible discharge to home tomorrow. Objective - Vital Signs Vital signs: Vital Signs Temp 97.9 F 02/10/23 09:20 Pulse 62 02/10/23 16:40 Resp 17 02/10/23 16:40 BP 108/64 02/10/23 16:40 Pulse Ox 98 02/10/23 16:40 FiO2 Intake & Output 02/09/23 02/10/23 02/10/23 18:59 06:59 18:59 Intake Total 898 236 Balance 898 236 Intake: Oral 898 236 Other: Voiding Method Toilet Toilet Toilet Urinal Urinal Urinal # Voids 2 - Exam In general patient is alert and oriented 3 in no apparent distress Head normocephalic and atraumatic Neck supple no JVD no goiter Lungs clear to auscultation bilaterally no wheezing or crackles Heart regular rate and rhythm S1-S2, no rub or gallop Abdomen is soft nontender nondistended positive bowel sounds no hepatosplenomegaly Extremities no edema no cyanosis or clubbing Neuro no gross focal deficit - Labs CBC & Chem 7: 02/08/23 08:09 02/08/23 08:09 Labs: Abnormal Lab Results - Last 24 Hours (Table) 02/09/23 02/10/23 02/10/23 Range/Units 19:48 05:42 11:33 POC Glucose (mg/dL) 288 H 348 H 301 H (70-110) mg/dL 02/10/23 Range/Units 16:30 POC Glucose (mg/dL) 319 H (70-110) mg/dL Assessment and Plan Assessment: 1. Altered mental status changes 2. Diabetes mellitus type 1 with hyperglycemia. Patient normally maintained on insulin pump but has been off insulin pump maintained on NovoLog and sliding scale coverage 3. History of essential hypertension 4. History of hyperlipidemia 5. History of BPH 6. History of dementia 7. History of peripheral neuropathy DVT prophylaxis Lovenox. GI prophylaxis Protonix Cardiology and neurology services consulted 2-D echo ordered CTA completed Repeat labs ordered Home meds resumed PT OT services consulted
[2023-02-10 20:29] LABS: Glucose,Whole Blood 319 mg/dL (70-110)
[2023-02-10] MEDS: TAMSULOSIN 0.4 MG CAP.ER.24H PO SCH (20:53)
[2023-02-10] MEDS: ATORVASTATIN 40 MG TAB PO SCH (20:53)
[2023-02-11 06:19] LABS: Glucose,Whole Blood 291 mg/dL (70-110)
[2023-02-11] MEDS: INSULIN DETEMIR (LEVEMIR) 100 UNIT/ML SYR SQ SCH (06:29)
[2023-02-11] MEDS: INSULIN ASPART (NovoLOG) 100 UNIT/ML VIAL SQ SCH ×2 (06:30→12:08)
[2023-02-11] MEDS: PANTOPRAZOLE 40 MG TABLET PO SCH (06:30)
[2023-02-11] MEDS: TICAGRELOR 90 MG TAB PO SCH (08:23)
[2023-02-11] MEDS: ENOXAPARIN 40 MG/0.4 ML SYRINGE SQ SCH (08:23)
[2023-02-11] MEDS: ASPIRIN 81 MG PO SCH (08:23)
[2023-02-11] MEDS: DOCUSATE 100 MG CAP PO SCH (08:23)
[2023-02-11] MEDS: CITALOPRAM HYDROBROMIDE 20 MG TAB PO SCH (08:23)
[2023-02-11] MEDS: LORATADINE 10 MG TAB PO SCH (08:23)
[2023-02-11] MEDS: FINASTERIDE 5 MG TAB PO SCH (08:23)
[2023-02-11] MEDS: FOLIC ACID 1 MG TAB PO SCH (08:23)
[2023-02-11] MEDS: MEMANTINE 5 MG TAB PO SCH (08:23)
--- NOTE | 2023-02-11 09:52 | P.DS ---
Providers Date of admission: 02/10/23 08:49 Expected date of discharge: 02/11/23 Attending physician: Ej Gibson Consults: 02/07/23 05:34 Consult Physician Urgent Consulting Provider: Thomas Campos Consult Reason/Comments: acute encephalopathy Do you want consulting provider notified?: Yes 02/07/23 10:04 Consult Physician Routine Consulting Provider: Freddy Street Consult Reason/Comments: tia,syncope Do you want consulting provider notified?: Yes Primary care physician: Ej Gibson [facility] Course: Discharge diagnosis 1. Altered mental status changes 2. Diabetes mellitus type 1 with hyperglycemia. Patient normally maintained on insulin pump but has been off insulin pump maintained on NovoLog and sliding scale coverage 3. History of essential hypertension 4. History of hyperlipidemia 5. History of BPH 6. History of dementia 7. History of peripheral neuropathy Hospital course This is a 72-year-old male patient who presents to ER with concerns of altered mental status patient does not recall that history of event is obtained from medical record. According to records Y stated that patient had facial droop starting around 5 PM with some confused speech initially did not call EMS the patient continued to be off balance and speech difficulty which prompted her to call EMS upon arrival patient did not have facial droop but was noted to be alert and oriented to only 2. Patient has a past medical history of coronary artery disease, CVA, dementia, diabetes mellitus, I disorder, GERD, hearing disorder, prostate disorder, hypertension, hyperlipidemia and diabetes mellitus type 1 in which he usually is maintained on insulin pump the patient was recently admitted here due to elevated blood sugars in pump not working properly patient was sent home on NovoLog sliding scale and long-acting insulin. Per patient he has not been able to get into endocrinology to receive new pump parts. Per patient but sugars have been elevated around the 300s parietal blood sugar 192. Initial workup in the ER showing EKG of sinus rhythm. Head CT completed showing no acute hemorrhage hydrocephalus or mass effect. CTA showing mild bilateral ICA stenosis from multiple sclerosis. Chest x-ray completed showing no acute cardiopulmonary disease. Creatinine 1.03 bun 22. White blood cell 7.5 hemoglobin 13.7. This time patient is resting comfortably in bed. Patient is alert and oriented to 2. Patient denies any chest pain or shortness of breath. Patient denies nausea vomiting or diarrhea. Patient denies any urinary burning or frequency. At this time cardiology and neurology services will be consulted 2-D echo will be ordered PT OT services consulted. Home meds resumed On 02/08/2023 patient was seen and examined on the medical floor he is alert and oriented 3 in no apparent distress he is still complaining of dizziness and unsteady gaits otherwise he denies any complaints at this time there is no fever or chills no headache, no chest pain no shortness of breath no cough no nausea or vomiting no abdominal pain no diarrhea and no urinary symptoms On 02/09/2023 patient's alert and oriented 3. Medications to be adjusted per cardiology awaiting further input. Temp 98, heart rate 66, respiratory rate 20, blood pressure 109/67 with pulse ox 98% on room air On 02/10/2023 patient was seen and examined on the telemetry floor he is alert and oriented 3 in no apparent distress there is no fever or chills no headache or dizziness no chest pain no shortness of breath no cough no nausea or vomiting no abdominal pain no diarrhea and no urinary symptoms, recommendation by cardiology is for lisinopril 10 mg daily, discontinue Florinef and midodrine, proceed with cardiac monitoring as outpatient. Possible discharge to home tomorrow. On 02/11/2023 patient's alert and oriented 3. Patient has been cleared for discharge from cardiology and neurology services. Per neurology patient was switched from Plavix to brilinta. Per neurology recommendation 30 days on Brilinta and then switching back to Plavix. Per neurology they do not believe patient needs long-term Brilinta. Medications adjusted per cardiology recommended following up 2 weeks in office and patient have event monitor prior to discharge. At this time patient denies chest pain or shortness of breath. P atient denies nausea vomiting or diarrhea. Patient denies any urinary burning or frequency Patient Condition at Discharge: Stable Plan - Discharge Summary Discharge Rx Participant: Yes New Discharge Prescriptions: New Ticagrelor [Brilinta] 90 mg PO BID 30 Days #60 tab captopriL [Capoten] 12.5 mg PO HS@2200 30 Days #30 tab Folic Acid 1 mg PO DAILY 30 Days #30 tab Continue Aspirin 81 mg PO DAILY Pantoprazole [Protonix] 40 mg PO BID rOPINIRole HCL [Requip] 0.5 mg PO HS 30 Days #30 tablet Tamsulosin [Flomax] 0.4 mg PO HS Cetirizine HCl [Zyrtec] 10 mg PO DAILY Memantine [Namenda] 5 mg PO BID Atorvastatin [Lipitor] 40 mg PO HS Acetaminophen [Tylenol Extra Strength] 1,000 mg PO BID Finasteride [Proscar] 5 mg PO DAILY INSULIN ASPART (NovoLOG) [NovoLOG (formulary)] See Protocol SQ ACHS #1 pen Insulin Degludec [Tresiba Flextouch U-100 Pen] 22 units SQ DAILY #1 pen Nystatin 100,000Unit/gm Cream [Mycostatin Cream] 1 applic TOPICAL BID Citalopram Hydrobromide [Citalopram HBr] 40 mg PO DAILY Docusate [Colace] 300 mg PO DAILY Discontinued Lisinopril-Hctz 20-12.5 mg [Zestoretic 20-12.5] 1 tab PO DAILY Fludrocortisone Acetate 0.2 mg PO DAILY Clopidogrel [Plavix] 75 mg PO DAILY 30 Days #30 tab Midodrine [ProAmatine] 5 mg PO AC-TID 30 Days #90 tab Discharge Medication List Aspirin 81 mg PO DAILY 10/16/13 [History] Pantoprazole [Protonix] 40 mg PO BID 01/20/18 [History] rOPINIRole HCL [Requip] 0.5 mg PO HS 30 Days #30 tablet 05/09/18 [Rx] Tamsulosin [Flomax] 0.4 mg PO HS 11/09/18 [History] Cetirizine HCl [Zyrtec] 10 mg PO DAILY 08/21/22 [History] Citalopram Hydrobromide [Citalopram HBr] 40 mg PO DAILY 08/21/22 [History] Docusate [Colace] 300 mg PO DAILY 10/09/22 [History] Memantine [Namenda] 5 mg PO BID 10/09/22 [History] Acetaminophen [Tylenol Extra Strength] 1,000 mg PO BID 11/14/22 [History] Atorvastatin [Lipitor] 40 mg PO HS 11/14/22 [History] Finasteride [Proscar] 5 mg PO DAILY 12/27/22 [History] INSULIN ASPART (NovoLOG) [NovoLOG (formulary)] See Protocol SQ ACHS #1 pen 01/31/23 [Rx] Insulin Degludec [Tresiba Flextouch U-100 Pen] 22 units SQ DAILY #1 pen 01/31/23 [Rx] Nystatin 100,000Unit/gm Cream [Mycostatin Cream] 1 applic TOPICAL BID 02/07/23 [History] Folic Acid 1 mg PO DAILY 30 Days #30 tab 02/11/23 [Rx] Ticagrelor [Brilinta] 90 mg PO BID 30 Days #60 tab 02/11/23 [Rx] captopriL [Capoten] 12.5 mg PO HS@2200 30 Days #30 tab 02/11/23 [Rx] Follow up Appointment(s)/Referral(s): Randy Petit MD [STAFF PHYSICIAN] - 2 Weeks Ej Gibson MD [Primary Care Provider] - 1-2 days Activity/Diet/Wound Care/Special Instructions: Activity as tolerated Diet heart healthy, diabetic
[2023-02-11 10:21] VITALS: TEMP 97.4
[2023-02-11 11:34] LABS: Glucose,Whole Blood 267 mg/dL (70-110)
[2023-02-11 12:50] VITALS: BP 129/75; PULSE 66; RESP 17
== END 2023-02-11 13:49 | disposition home or self-care (01) | DRG 921 ==
LOC: EC 01:35 → 6NMEDSUR 05:34 → 3SCARD 06:25 → OBSVTOIN 02-10 08:49
PROVIDERS: ADMIT Internal Medicine; ATTEND Internal Medicine
DX: T85.694A Other mechanical complication of insulin pump, initial encounter (principal); T38.3X6A Underdosing of insulin and oral hypoglycemic [antidiabetic] drugs, initial encounter; E10.65 Type 1 diabetes mellitus with hyperglycemia; E10.51 Type 1 diabetes mellitus with diabetic peripheral angiopathy without gangrene; E10.22 Type 1 diabetes mellitus with diabetic chronic kidney disease; E78.5 Hyperlipidemia, unspecified; F32.A Depression, unspecified; G25.81 Restless legs syndrome; G35 Multiple sclerosis; E10.40 Type 1 diabetes mellitus with diabetic neuropathy, unspecified; H91.90 Unspecified hearing loss, unspecified ear; I12.9 Hypertensive chronic kidney disease with stage 1 through stage 4 chronic kidney disease, or unspecified chronic kidney disease; I25.10 Atherosclerotic heart disease of native coronary artery without angina pectoris; I34.0 Nonrheumatic mitral (valve) insufficiency; I65.23 Occlusion and stenosis of bilateral carotid arteries; I95.1 Orthostatic hypotension; N18.9 Chronic kidney disease, unspecified; Z96.1 Presence of intraocular lens; N40.0 Benign prostatic hyperplasia without lower urinary tract symptoms; R29.6 Repeated falls; Z79.02 Long term (current) use of antithrombotics/antiplatelets; Z79.4 Long term (current) use of insulin; Z79.82 Long term (current) use of aspirin; Z79.899 Other long term (current) drug therapy; Z82.49 Family history of ischemic heart disease and other diseases of the circulatory system; Z82.5 Family history of asthma and other chronic lower respiratory diseases; Z86.73 Personal history of transient ischemic attack (TIA), and cerebral infarction without residual deficits; Z87.891 Personal history of nicotine dependence
CPT/HCPCS: 36415; 70450; 70496; 70498; 71045; 80053; 80320; 81003; 82607; 82746; 83036; 84484; 85025; 85610; 85730; 93005; 93270; 93308; 96374; 99285

== ENCOUNTER → 2023-05-12 | Outpatient (CLI) | payer MEDICARE ==
--- NOTE | 2023-05-18 14:04 | MR ---
EXAMINATION TYPE: MR lumbar spine wo/w con DATE OF EXAM: 05/12/2023 COMPARISON: NONE HISTORY: 72-year-old male M54.5, Low back pain into sen legs Technique: Multiplanar, multisequence images of the lumbar spine were obtained before and after admin istration of 13 mL intravenous Gadavist gadolinium contrast. FINDINGS: Patient is status post L3-L4 posterior and interbody lumbar fusion. Scattered moderate degenerative disc disease is present throughout especially above the fused level l ocated at L2-L3 with desiccated, narrowed, and bulging disc. Prominent ligamentum flavum thickening a nd hypertrophic facet arthropathy is also present, especially below the fusion L4-L5. Conus medullaris is normal. No suspicious bone marrow placement. There is some edematous Modic type I endplate changes anteriorly and towards the left at L5-S1. Vertebral body heights are preserved and alignment is maintained. * Combination of disc bulge, ligamentum flavum thickening, and an underlying congenital spinal canal narrowing contributes to overall moderate spinal canal stenosis above the fusion at L2-L3. * Mild disc bulge, hypertrophic facet arthropathy, ligamentum flavum thickening contribute to mild s alonso canal stenosis below the fusion at L4-L5. * No high-grade canal compromise is seen. * On the right, changes result in severe neuroforaminal stenosis at L3-L4 and moderate at both L4-L5 and L5-S1. Mild that L2-L3. * On the left, changes result in moderate neuroforaminal stenoses from L2 through S1 levels. In barbara tion, left lateral disc herniation at L5-S1 probably impinges the extraforaminal left L5 nerve root. Allowing for the metal artifact, no convincing abnormal enhancement is identified. IMPRESSION: 1. Patient status post L3-L4 posterior and interbody lumbar fusion. Background mild congenital spinal canal stenosis with moderate multilevel spondylotic change. 2. Moderate overall spinal canal stenosis above the fusion at L2-L3 and mild below the fusion at L4-L 5. 3. Variable neuroforaminal stenoses as outlined above. Severe on the right at L3-L4 and moderate at m ultiple levels on both sides. 4. In addition, left lateral disc herniation at L5-S1 may impinge the extraforaminal left L5 nerve ro ot.
== END | disposition home or self-care (01) ==
LOC: RADMRIMAIN 11:33
PROVIDERS: ATTEND Orthopaedic Surgery Orthopaedic Surgery of the Spine
DX: M51.26 Other intervertebral disc displacement, lumbar region (principal); M99.73 Connective tissue and disc stenosis of intervertebral foramina of lumbar region; M47.817 Spondylosis without myelopathy or radiculopathy, lumbosacral region; Z48.89 Encounter for other specified surgical aftercare; M41.86 Other forms of scoliosis, lumbar region; E66.9 Obesity, unspecified; M48.062 Spinal stenosis, lumbar region with neurogenic claudication; M51.37 Other intervertebral disc degeneration, lumbosacral region; M16.12 Unilateral primary osteoarthritis, left hip; M25.551 Pain in right hip; Z98.1 Arthrodesis status; Z68.36 Body mass index [BMI] 36.0-36.9, adult
CPT/HCPCS: 72158; A9585

== ENCOUNTER → 2023-07-31 | Outpatient (CLI) | payer MEDICARE | END | disposition home or self-care (01) | LOC: LABWHC1 15:37 | PROVIDERS: ATTEND Internal Medicine Nephrology | DX: E87.5 Hyperkalemia (principal) | CPT/HCPCS: 36415; 84132 ==

== ENCOUNTER 2023-08-06 15:27 | Observation (INO) | payer MEDICARE, OTHER ==
[2023-08-06 16:13] LABS: Basophils % (A) 0 %; Eosinophils # (A) 0.1 k/uL (0-0.7); Eosinophils % (A) 2 %; HCT 41.3 % (39.0-53.0); HGB 13.7 gm/dL (13.0-17.5); Lymphocytes # (A) 1.6 k/uL (1.0-4.8); Lymphocytes % (A) 29 %; MCH 32.1 pg (25.0-35.0); MCHC 33.3 g/dL (31.0-37.0); MCV 96.5 fL (80.0-100.0); Mean Platelet Volume 8.5; Monocytes # (A) 0.2 k/uL (0-1.0); Monocytes % (A) 4 %; Neutrophils # (A) 3.5 k/uL (1.3-7.7); Neutrophils % (A) 63 %; Platelet Count 183 k/uL (150-450); RBC 4.28 m/uL (4.30-5.90); RDW 12.7 % (11.5-15.5); WBC 5.5 k/uL (3.8-10.6)
--- NOTE | 2023-08-06 16:16 | XR ---
EXAMINATION TYPE: XR chest 2V DATE OF EXAM: 08/06/2023 COMPARISON: 02/07/2023 HISTORY: Shortness of breath TECHNIQUE: Frontal and lateral views of the chest are obtained. FINDINGS: Scattered senescent parenchymal changes noted. Hyperinflation compatible with COPD. No evidence for infiltrate. No evidence for atelectasis. Heart size is stable. Mediastinal structures are stable and grossly unremarkable. No evidence for hilar prominence. Degenerative changes dorsal spine. IMPRESSION: 1. No evidence for acute pulmonary disease.
--- NOTE | 2023-08-06 16:20 | ED ---
Weakness HPI - General Chief complaint: Weakness Stated complaint: Weakness Time Seen by Provider: 08/06/23 15:42 Source: patient, EMS, RN notes reviewed, old records reviewed Mode of arrival: EMS Limitations: no limitations - History of Present Illness Initial comments: Is a 73-year-old male sent in by Dr. Mejia for evaluation regarding chest pain. Patient himself states he feels a little bit weak and her 's been confused with chest pain and shortness of breath. Patient was at his doctor's office for normal physical exam and was sent to the ER for symptoms of chest pain MD Complaint: generalized weakness -: days(s) Location: generalized Severity: mild Severity scale (1-10): 2 Quality: numbness, aching Consistency: constant Improves with: none Worsens with: none Context: recent illness, history of similar Associated Symptoms: denies other symptoms - Related Data Home Medications Medication Instructions Recorded Confirmed Aspirin 81 mg PO DAILY 10/16/13 08/06/23 Pantoprazole [Protonix] 40 mg PO BID 01/20/18 08/06/23 Tamsulosin [Flomax] 0.4 mg PO HS 11/09/18 08/06/23 Cetirizine HCl [Zyrtec] 10 mg PO DAILY 08/21/22 08/06/23 Citalopram Hydrobromide 40 mg PO DAILY 08/21/22 08/06/23 [Citalopram HBr] Docusate [Colace] 300 mg PO DAILY 10/09/22 08/06/23 Memantine [Namenda] 5 mg PO BID 10/09/22 08/06/23 Atorvastatin [Lipitor] 40 mg PO HS 11/14/22 08/06/23 Finasteride [Proscar] 5 mg PO DAILY 12/27/22 08/06/23 Clopidogrel [Plavix] 75 mg PO DAILY 08/06/23 08/06/23 Ergocalciferol [Vitamin D2 (1250 1,250 mcg PO POLANCO 08/06/23 08/06/23 Mcg = 05589 Iu)] Fludrocortisone [Florinef] 0.2 mg PO DAILY 08/06/23 08/06/23 HYDROcodone/APAP 5-325MG [[place] 1 tab PO Q12H PRN 08/06/23 08/06/23 5-325] Insulin Degludec [Tresiba 60 units SQ DAILY 08/06/23 08/06/23 Flextouch U-100 Pen] Lisinopril-Hctz 20-12.5 mg 1 tab PO DAILY 08/06/23 08/06/23 [Zestoretic 20-12.5] Previous Rx's Medication Instructions Recorded rOPINIRole HCL [Requip] 0.5 mg PO HS 30 Days #30 tablet 05/09/18 INSULIN ASPART (NovoLOG) [NovoLOG See Protocol SQ ACHS #1 pen 01/31/23 (formulary)] Allergies Allergy/AdvReac Type Severity Reaction Status Date / Time No Known Allergies Allergy Verified 08/06/23 18:07 Review of Systems ROS Statement: Those systems with pertinent positive or pertinent negative responses have been documented in the HPI. ROS Other: All systems not noted in ROS Statement are negative. Past Medical History Past Medical History: Blood Disorder, Coronary Artery Disease (CAD), CVA/TIA, Dementia, Diabetes Mellitus, Eye Disorder, GERD/Reflux, Hearing Disorder / Deafness, Hyperlipidemia, Hypertension, Neurologic Disorder, Osteoarthritis (OA), Prostate Disorder, Renal Disease, Syncope Additional Past Medical History / Comment(s): IDDM type I with insulin pump, bilateral legs/feet/arms and hand neuropathy, chronic renal disease, difficulty swallowing, RLS, factor V, early dementia, BPH, bilateral tinnitis, R eye retinal bleeds x2, chronic low back pain with bilateral sciatica which is worse on the right side, bilateral shoulder and cervical pain, possible TIAs (01/13) History of Any Multi-Drug Resistant Organisms: None Reported Past Surgical History: Adenoidectomy, Back Surgery, Heart Catheterization, Orthopedic Surgery, Tonsillectomy Additional Past Surgical History / Comment(s): Lumbar laminectomy, R knee cartildge surgery, bilateral carpal tunnel released, sen wrist dequevain surgery, R rotator cuff repair, L foot pins and plates, EGD, colonoscopy, R eye laser eye surgery for retinal bleeds, bilateral cataract removals/lens implants, L arm broke- did not operate on yet Past Anesthesia/Blood Transfusion Reactions: Motion Sickness Past Psychological History: Depression Smoking Status: Former smoker Past Alcohol Use History: None Reported Past Drug Use History: None Reported - Past Family History Brother(s) Family Medical History: Blood Disorder, Deep Vein Thrombosis (DVT) Mother Additional Family Medical History / Comment(s): Mother had palsey Father Family Medical History: COPD, Myocardial Infarction (NC) Additional Family Medical History / Comment(s): Father of COPD/NC at the age of 72 yrs. General Exam Limitations: no limitations General appearance: alert, in no apparent distress Head exam: Present: atraumatic, normocephalic, normal inspection Eye exam: Present: normal appearance, PERRL, EOMI. Absent: scleral icterus, conjunctival injection, periorbital swelling ENT exam: Present: normal exam, mucous membranes moist Neck exam: Present: normal inspection. Absent: tenderness, meningismus, lymphadenopathy Respiratory exam: Present: normal lung sounds bilaterally. Absent: respiratory distress, wheezes, rales, rhonchi, stridor Cardiovascular Exam: Present: regular rate, normal rhythm, normal heart sounds. Absent: systolic murmur, diastolic murmur, rubs, gallop, clicks GI/Abdominal exam: Present: soft, normal bowel sounds. Absent: distended, tenderness, guarding, rebound, rigid Extremities exam: Present: normal inspection, full ROM, normal capillary refill. Absent: tenderness, pedal edema, joint swelling, calf tenderness Back exam: Present: normal inspection Neurological exam: Present: alert, oriented X3, CN II-XII intact Psychiatric exam: Present: normal affect, normal mood Skin exam: Present: warm, dry, intact, normal color. Absent: rash Course Vital Signs 08/06/23 15:29 Temperature 98.4 F Pulse Rate 71 Respiratory 18 Rate Blood Pressure 145/58 O2 Sat by Pulse 99 Oximetry - Reevaluation(s) Reevaluation #1: 08/06/23 19:13 Medical records reviewed Reevaluation #2: 08/06/23 19:13 Patient still feels unwell, weak Reevaluation #3: 08/06/23 19:13 Patient informed of results questions answered Reevaluation #4: 08/06/23 19:13 Was pt. sent in by a medical professional or institution (, PA, GOVERNMENT AFFAIRS RESEARCHER, urgent care, hospital, or care home...) When possible be specific @ -no Did you speak to anyone other than the patient for history (EMS, parent, family, police, friend...)? What history was obtained from this source @ -no Did you review nursing and triage notes (agree or disagree)? Why? @ -agree Are old charts reviewed (outside hosp., previous admission, EMS record, old EKG, old radiological studies, urgent care reports/EKG's, care home records)? Report findings @ -yes Differential Diagnosis (chest pain, altered mental status, abdominal pain women, abdominal pain men, vaginal bleeding, weakness, fever, dyspnea, syncope, headache, dizziness, GI bleed, back pain, seizure, CVA, palpatations, mental health, musculoskeletal)? @ -prior EKG interpreted by me (3pts min.). @ -yes X-rays interpreted by me (1pt min.). @ -yes negative for acute disease CT interpreted by me (1pt min.). @ -no U/S interpreted by me (1pt. min.). @ -no What testing was considered but not performed or refused? (CT, X-rays, U/S, labs)? Why? @ -none What meds were considered but not given or refused? Why? @ -none Did you discuss the management of the patient with other professionals (professionals i.e. , PA, GOVERNMENT AFFAIRS RESEARCHER, lab, RT, psych nurse, social media community manager, reefer truck driver, teacher, weapons officer naval activity, case resolution specialist)? Give summary @ -no Was smoking cessation discussed for >3mins.? @ -no Was critical care preformed (if so, how long)? @ -no Were there social determinants of health that impacted care today? How? (Homelessness, low income, unemployed, alcoholism, drug addiction, transportation, low edu. Level, literacy, decrease access to med. care, [facility], rehab)? @ -none Was there de-escalation of care discussed even if they declined (Discuss DNR or withdrawal of care, Hospice)? DNR status @ -no What co-morbidities impacted this encounter? (DM, HTN, Smoking, COPD, CAD, Cancer, CVA, ARF, Chemo, Hep., AIDS, mental health diagnosis, sleep apnea, morbid obesity)? @ -none Was patient admitted / discharged? Hospital course, mention meds given and route, prescriptions, significant lab abnormalities, going to OR and other pertinent info. @ - Undiagnosed new problem with uncertain prognosis? @ -no Drug Therapy requiring intensive monitoring for toxicity (Heparin, Nitro, Insulin, Cardizem)? @ -no Were any procedures done? @ -no Diagnosis/symptom? @ - Acute, or Chronic, or Acute on Chronic? @ -Acute Uncomplicated (without systemic symptoms) or Complicated (systemic symptoms)? @ -Complicated Side effects of treatment? @ -no Exacerbation, Progression, or Severe Exacerbation? @ -exacerbation Poses a threat to life or bodily function? How? (Chest pain, USA, NC, pneumonia, PE, COPD, DKA, ARF, appy, cholecystitis, CVA, Diverticulitis, Homicidal, Suicidal, threat to staff... and all critical care pts) @ -yes Reevaluation #5: Differential Chest Pain: Stable Angina, Unstable Angina, STEMI, NSTEMI Aortic Dissection, Pneumothorax, Musculoskeletal, Esophageal Spasm GERD, Cholecystitis, Pancreatitis, Zoster, this is not meant to be an all-inclusive list. - Consultations Consultation #1: Spoke with Dr. Gibson who will see this patient EKG Findings - EKG Comments: EKG Findings:: EKG is sinus 67 [place] 160 QRS 97 QTc 415 Medical Decision Making - Medical Decision Making 73 male will be admitted for cardiology to evaluate and see - Lab Data Result diagrams: 08/06/23 15:54 08/06/23 15:54 Lab Results 08/06/23 08/06/23 08/06/23 Range/Units 15:54 15:54 15:54 WBC 5.5 (3.8-10.6) k/uL RBC 4.28 L (4.30-5.90) m/uL Hgb 13.7 (13.0-17.5) gm/dL Hct 41.3 (39.0-53.0) % MCV 96.5 (80.0-100.0) fL MCH 32.1 (25.0-35.0) pg MCHC 33.3 (31.0-37.0) g/dL RDW 12.7 (11.5-15.5) % Plt Count 183 (150-450) k/uL MPV 8.5 Neutrophils % 63 % Lymphocytes % 29 % Monocytes % 4 % Eosinophils % 2 % Basophils % 0 % Neutrophils # 3.5 (1.3-7.7) k/uL Lymphocytes # 1.6 (1.0-4.8) k/uL Monocytes # 0.2 (0-1.0) k/uL Eosinophils # 0.1 (0-0.7) k/uL Basophils # 0.0 (0-0.2) k/uL PT 11.0 (10.0-12.5) sec INR 1.0 (<1.2) APTT 21.9 L (22.0-30.0) sec Sodium 134 L (137-145) mmol/L Potassium 4.7 (3.5-5.1) mmol/L Chloride 104 (98-107) mmol/L Carbon Dioxide 26 (22-30) mmol/L Anion Gap 4 mmol/L BUN 29 H (9-20) mg/dL Creatinine 1.11 (0.66-1.25) mg/dL Est GFR (CKD-EPI)AfAm 77 (>60 ml/min/1.73 sqM) Est GFR (CKD-EPI)NonAf 66 (>60 ml/min/1.73 sqM) Glucose 260 H (74-99) mg/dL Lactic Ac Sepsis Rflx Plasma Lactic Acid Finesse (0.7-2.0) mmol/L Calcium 9.1 (8.4-10.2) mg/dL Phosphorus 2.9 (2.5-4.5) mg/dL Magnesium 1.9 (1.6-2.3) mg/dL Total Bilirubin 0.5 (0.2-1.3) mg/dL AST 60 H (17-59) U/L ALT 67 H (4-49) U/L Alkaline Phosphatase 65 (38-126) U/L Troponin I (0.000-0.034) ng/mL Total Protein 6.7 (6.3-8.2) g/dL Albumin 3.6 (3.5-5.0) g/dL TSH 2.540 (0.465-4.680) mIU/L 08/06/23 08/06/23 08/06/23 Range/Units 15:54 15:54 16:26 WBC (3.8-10.6) k/uL RBC (4.30-5.90) m/uL Hgb (13.0-17.5) gm/dL Hct (39.0-53.0) % MCV (80.0-100.0) fL MCH (25.0-35.0) pg MCHC (31.0-37.0) g/dL RDW (11.5-15.5) % Plt Count (150-450) k/uL MPV Neutrophils % % Lymphocytes % % Monocytes % % Eosinophils % % Basophils % % Neutrophils # (1.3-7.7) k/uL Lymphocytes # (1.0-4.8) k/uL Monocytes # (0-1.0) k/uL Eosinophils # (0-0.7) k/uL Basophils # (0-0.2) k/uL PT (10.0-12.5) sec INR (<1.2) APTT (22.0-30.0) sec Sodium (137-145) mmol/L Potassium (3.5-5.1) mmol/L Chloride (98-107) mmol/L Carbon Dioxide (22-30) mmol/L Anion Gap mmol/L BUN (9-20) mg/dL Creatinine (0.66-1.25) mg/dL Est GFR (CKD-EPI)AfAm (>60 ml/min/1.73 sqM) Est GFR (CKD-EPI)NonAf (>60 ml/min/1.73 sqM) Glucose (74-99) mg/dL Lactic Ac Sepsis Rflx Y Plasma Lactic Acid Finesse 2.3 H* (0.7-2.0) mmol/L Calcium (8.4-10.2) mg/dL Phosphorus (2.5-4.5) mg/dL Magnesium (1.6-2.3) mg/dL Total Bilirubin (0.2-1.3) mg/dL AST (17-59) U/L ALT (4-49) U/L Alkaline Phosphatase (38-126) U/L Troponin I <0.012 (0.000-0.034) ng/mL Total Protein (6.3-8.2) g/dL Albumin (3.5-5.0) g/dL TSH (0.465-4.680) mIU/L - Radiology Data Radiology results: report reviewed (Chest x-ray is negative for acute disease), image reviewed Disposition Clinical Impression: Acute kidney injury, Confusion, Weakness, Chest pain, Altered mental status Disposition: ADMITTED IP TO THIS [facility] Condition: Fair Is patient prescribed a controlled substance at d/c from ED?: No Referrals: Ej Gibson MD [Primary Care Provider] - 1-2 days Time of Disposition: 19:00
[2023-08-06 16:25] LABS: ALT 67 U/L (4-49); AST 60 U/L (17-59); African American GFR (CKD) 77 (>60 ml/min/1.73 sqM); Albumin 3.6 g/dL (3.5-5.0); Alkaline Phosphatase 65 U/L (38-126); Anion Gap 4 mmol/L; Blood Urea Nitrogen 29 mg/dL (9-20); Calcium 9.1 mg/dL (8.4-10.2); Carbon Dioxide 26 mmol/L (22-30); Chloride 104 mmol/L (98-107); Glucose 260 mg/dL (74-99); Magnesium 1.9 mg/dL (1.6-2.3); Non-African American GFR(CKD) 66 (>60 ml/min/1.73 sqM); Phosphorus 2.9 mg/dL (2.5-4.5); Potassium 4.7 mmol/L (3.5-5.1); Sodium 134 mmol/L (137-145); Total Bilirubin 0.5 mg/dL (0.2-1.3); Total Protein 6.7 g/dL (6.3-8.2)
[2023-08-06 16:59] LABS: Partial Thromboplastin Time 21.9 sec (22.0-30.0)
[2023-08-06] MEDS ORDERED: ONDANSETRON 4 MG/2 ML VIAL IVP PRN (18:30)
[2023-08-06] MEDS ORDERED: NALOXONE 0.4 MG/ML 1 ML VIAL IV PRN (18:30)
[2023-08-06] MEDS ORDERED: MORPHINE SULFATE 4 MG/ML SYRINGE IV PRN (18:30)
[2023-08-06] MEDS: SODIUM CHLORIDE 0.9% 1,000 ML IV SCH (19:23)
[2023-08-06 19:29] LABS: Glucose,Whole Blood 294 mg/dL (70-110)
[2023-08-06] MEDS ORDERED: DEXTROSE 50% SYRINGE 50 ML IVP PRN ×2 (21:14)
[2023-08-06] MEDS: ATORVASTATIN 40 MG TAB PO SCH (22:04)
[2023-08-06] MEDS: TAMSULOSIN 0.4 MG CAP.ER.24H PO SCH (22:04)
[2023-08-06 22:13] LABS: Glucose,Whole Blood 445 mg/dL (70-110)
[2023-08-06] MEDS: INSULIN ASPART (NovoLOG) 100 UNIT/ML VIAL SQ SCH (22:22)
[2023-08-06] MEDS: HYDROcodone/APAP 5-325MG 1 EACH TAB PO PRN (23:05)
[2023-08-06 23:10] VITALS: RESP 16
[2023-08-07] MEDS: PANTOPRAZOLE 40 MG TABLET PO SCH (06:12)
[2023-08-07 06:15] LABS: Glucose,Whole Blood 216 mg/dL (70-110)
[2023-08-07 08:22] VITALS: BP 121/67; PULSE 63; TEMP 97.7
[2023-08-07] MEDS ORDERED: AMINOPHYLLINE 500 MG/20 ML VIAL IV PRN (08:23)
[2023-08-07] MEDS ORDERED: CAFFEINE CITRATE 60 MG/3 ML VIAL IV PRN (08:23)
[2023-08-07] MEDS ORDERED: REGADENOSON 0.4 MG/5 ML SYRINGE IV PRN (08:23)
[2023-08-07 08:42] LABS: Basophils # (A) 0.01 X 10*3/uL (0.00-0.10); Basophils % (A) 0.2 %; Eosinophils # (A) 0.15 X 10*3/uL (0.04-0.35); Eosinophils % (A) 2.5 %; HCT 37.2 % (39.6-50.0); HGB 12.6 g/dL (13.0-17.0); Lymphocytes # (A) 2.26 X 10*3/uL (0.90-5.00); Lymphocytes % (A) 37.8 %; MCH 31.7 pg (27.0-32.0); MCHC 33.9 g/dL (32.0-37.0); MCV 93.5 FL (80.0-97.0); Mean Platelet Volume 11.2 FL (9.5-12.2); Monocytes # (A) 0.41 X 10*3/uL (0.20-1.00); Monocytes % (A) 6.9 %; NRBC Per 100 WBC 0 X 10*3/uL (0.00-0.01); Neutrophils # (A) 3.13 X 10*3/uL (1.80-7.70); Neutrophils % (A) 52.3 %; Platelet Count 149 X 10*3/uL (140-440); RBC 3.98 X 10*6/uL (4.40-5.60); RDW 12.6 % (11.5-14.5); WBC 5.98 X 10*3/uL (4.50-10.00)
[2023-08-07] MEDS: FLUDROCORTISONE 0.1 MG TAB PO SCH (08:45)
[2023-08-07] MEDS: ASPIRIN 81 MG PO SCH (08:46)
[2023-08-07] MEDS: CLOPIDOGREL 75 MG TAB PO SCH (08:46)
[2023-08-07] MEDS: MEMANTINE 5 MG TAB PO SCH (08:46)
[2023-08-07] MEDS: LISINOPRIL-HCTZ 20-12.5 MG 1 EACH TAB PO SCH (08:46)
[2023-08-07] MEDS: FINASTERIDE 5 MG TAB PO SCH (08:46)
[2023-08-07] MEDS: DOCUSATE 100 MG CAP PO SCH (08:46)
[2023-08-07] MEDS: LORATADINE 10 MG TAB PO SCH (08:46)
[2023-08-07 10:35] LABS: ALT 61 U/L (10-49); AST 51 U/L (14-35); Albumin 3.7 g/dL (3.8-4.9); Albumin/Globulin Ratio 1.42 Ratio (1.60-3.17); Alkaline Phosphatase 58 U/L (41-126); BUN/Creat Ratio 24.18 Ratio (12.00-20.00); Blood Urea Nitrogen 26.6 mg/dL (9.0-27.0); Calcium 9.1 mg/dL (8.7-10.3); Carbon Dioxide 21.2 mmol/L (21.6-31.8); Chloride 103 mmol/L (96-109); Globulin 2.6 g/dL (1.6-3.3); Glucose 223 mg/dL (70-110); Phosphorus 3.7 mg/dL (2.4-5.1); Potassium 4.6 mmol/L (3.5-5.5); Sodium 137 mmol/L (135-145); Total Bilirubin 0.5 mg/dL (0.3-1.2); Total Protein 6.3 g/dL (6.2-8.2)
--- NOTE | 2023-08-07 11:18 | NM ---
EXAMINATION TYPE: NM stress lexiscan cardiolite DATE OF EXAM: 08/07/2023 COMPARISON: NONE CLINICAL INDICATION: Male, 73 years old with history of chest pain; TECHNIQUE: After the intravenous administration of 10.9 mCi Tc 99m Sestamibi - Cardiolite resting SP ECT images acquired 75 minutes post injection. The patient received 0.4mg Lexiscan, 25.7 mCi Tc 99m Sestamibi - Stress images obtained [address] injection FINDINGS: Review of stress and rest SPECT images demonstrates a small focus of reversible ischemia involving th e lateral wall. Gated analysis shows normal wall motion with an estimated left ventricular ejection f raction of 63 %. IMPRESSION: Small focus of reversible ischemia involving the lateral wall.
[2023-08-07 11:40] LABS: Glucose,Whole Blood 224 mg/dL (70-110)
[2023-08-07] MEDS: INSULIN DETEMIR (LEVEMIR) 100 UNIT/ML SYR SQ SCH (11:51)
--- NOTE | 2023-08-07 12:35 | P.CRDCN ---
History of Present Illness Consult date: 08/07/23 Consult reason: chest pain History of present illness: History of present illness: This is a 73-year-old male patient of Dr. LYNN Bhardwaj with past medical history of diabetes mellitus type 1, neuropathy, autonomic dysfunction, hypertension, hyperlipidemia, nonobstructive coronary artery disease, obesity. We have been asked to evaluate the patient for chest pain. Patient states that he has not been feeling well in general. He had a little bit of chest pain but is not there now. Is been going on for couple of days. It comes on randomly. He states he is not usually active and does not walk. He does have dyspnea with minimal exertion. He denies any dizziness or lightheadedness and no syncopal episodes. He does have frequent falls. He states he is more fatigued in general. He denies having any cough or fever. No wheezing. He does have some rectal bleeding from a pilonidal cyst. He has chronic lower extremity edema. He states he is eating and drinking okay. EKG sinus rhythm with sinus arrhythmia no acute ST changes. Chest x-ray: No evidence of acute pulmonary disease Lexiscan Cardiolite stress test revealed small focus of reversible ischemia involving the lateral wall. WBC 5.9, hemoglobin 12.6. Potassium 4.6, BUN 26 creatinine 1.1. Initial lactic acid 2.3 now 1.8. TSH 2.54. Troponin negative x 1. Home cardiac medications: Aspirin 81 mg daily, atorvastatin 40 mg at bedtime, Plavix 75 mg daily, finasteride 5 mg daily, Florinef 0.2 mg daily, lisinoprilhydrochlorothiazide 20-12.5 mg 1 tablet daily. 30-day event monitor completed on 03/12/2023 revealed normal sinus rhythm, frequent PACs, rare episodes of SVT longest lasting 10 beats and 1 episode of wide-complex tachycardia of 9 beats. Symptoms not specified corresponding with normal sinus rhythm and PACs. Review Of Systems: At the time of my exam: CONSTITUTIONAL: Denies fever or chills. HEENT: Denies blurred vision, vision changes, or eye pain. Denies hemoptysis CARDIOVASCULAR: Denies chest pain. Denies orthopnea. Denies PND. Denies palpitations RESPIRATORY: Denies shortness of breath. GASTROINTESTINAL: Denies abdominal pain. Denies nausea or vomiting. HEMATOLOGIC: Denies bleeding disorders. GENITOURINARY: Denies any blood in urine. SKIN: Denies pruitis. Denies rash. Physical examination: Gen: This is an obese 73-year-old male. He appears to be in no acute distress VS: reviewed, blood pressure 121/67, heart rate 63, pulse ox 98% on room air. HEENT: Head is atraumatic, normocephalic. Pupils equal, round. Sclerae is anicteric. NECK: Supple. No JVD. LUNGS: Clear to auscultation. No wheezes or rhonchi. No intercostal retractions. HEART: Regular rate and rhythm. No murmur. ABDOMEN: Soft No tenderness. EXTREMITIES: 1+ lower extremity edema. No calf tenderness. NEUROLOGICAL: Patient is awake, alert and oriented x3. Assessment: Atypical chest pain, acute coronary syndrome ruled out Abnormal Lexiscan stress test Diabetes mellitus type 1, uncontrolled with A1c 9.9 Diabetic neuropathy Autonomic dysfunction Hypertension Hyperlipidemia Nonobstructive coronary artery disease Obesity Plan: Resume patient's home cardiac medications Obtain 2-D echocardiogram and Doppler study to assess cardiac structure and function Case was discussed with Dr. LYNN Bhardwaj. Dr. LYNN Bhardwaj met with the patient. Plan is to optimize medical therapy, control blood sugar as his A1c is 9.9, and patient will follow-up in the office in 2 weeks. Next steps will be determined at that time. Dr. Bhardwaj spoke with Dr. Gibson regarding this plan. Start patient on metoprolol tartrate 12.5 mg twice daily Increase atorvastatin to 80 mg daily Patient is cleared for discharge and will follow-up with Dr. LYNN Bhardwaj in 2 weeks. Thank you kindly for this consultation. Nurse practitioner note has been reviewed, I agree with documented findings and plan of care. Patient was seen and examined. Past Medical History Past Medical History: Blood Disorder, Coronary Artery Disease (CAD), CVA/TIA, Dementia, Diabetes Mellitus, Eye Disorder, GERD/Reflux, Hearing Disorder / Deafness, Hyperlipidemia, Hypertension, Neurologic Disorder, Osteoarthritis (OA), Prostate Disorder, Renal Disease, Syncope Additional Past Medical History / Comment(s): IDDM type I with insulin pump, bilateral legs/feet/arms and hand neuropathy, chronic renal disease, difficulty swallowing, RLS, factor V, early dementia, BPH, bilateral tinnitis, R eye retinal bleeds x2, chronic low back pain with bilateral sciatica which is worse on the right side, bilateral shoulder and cervical pain, possible TIAs (01/13) History of Any Multi-Drug Resistant Organisms: None Reported Past Surgical History: Adenoidectomy, Back Surgery, Heart Catheterization, Orthopedic Surgery, Tonsillectomy Additional Past Surgical History / Comment(s): Lumbar laminectomy, R knee cartildge surgery, bilateral carpal tunnel released, sen wrist dequevain surgery, R rotator cuff repair, L foot pins and plates, EGD, colonoscopy, R eye laser eye surgery for retinal bleeds, bilateral cataract removals/lens implants, L arm broke- did not operate on yet Past Anesthesia/Blood Transfusion Reactions: Motion Sickness Past Psychological History: Depression Additional Psychological History / Comment(s): Pt resides with his spouse and their adult son. Pt uses a walker prn. He drives. He is currently managing his own medications but admits this is getting more difficult. Smoking Status: Former smoker Past Alcohol Use History: None Reported Additional Past Alcohol Use History / Comment(s): Pt started smoking in 1962 and quit in 1987 Past Drug Use History: None Reported - Past Family History Brother(s) Family Medical History: Blood Disorder, Deep Vein Thrombosis (DVT) Mother Additional Family Medical History / Comment(s): Mother had palsey Father Family Medical History: COPD, Myocardial Infarction (ND) Additional Family Medical History / Comment(s): Father of COPD/ND at the age of 72 yrs. Medications and Allergies Home Medications Medication Instructions Recorded Confirmed Type Aspirin 81 mg PO DAILY 10/16/13 08/06/23 History Pantoprazole [Protonix] 40 mg PO BID 01/20/18 08/06/23 History rOPINIRole HCL [Requip] 0.5 mg PO HS 30 Days #30 tablet 05/09/18 08/06/23 Rx Tamsulosin [Flomax] 0.4 mg PO HS 11/09/18 08/06/23 History Cetirizine HCl [Zyrtec] 10 mg PO DAILY 08/21/22 08/06/23 History Citalopram Hydrobromide 40 mg PO DAILY 08/21/22 08/06/23 History [Citalopram HBr] Docusate [Colace] 300 mg PO DAILY 10/09/22 08/06/23 History Memantine [Namenda] 5 mg PO BID 10/09/22 08/06/23 History Atorvastatin [Lipitor] 40 mg PO HS 11/14/22 08/06/23 History Finasteride [Proscar] 5 mg PO DAILY 12/27/22 08/06/23 History INSULIN ASPART (NovoLOG) [NovoLOG See Protocol SQ ACHS #1 pen 01/31/23 08/06/23 Rx (formulary)] Clopidogrel [Plavix] 75 mg PO DAILY 08/06/23 08/06/23 History Ergocalciferol [Vitamin D2 (1250 1,250 mcg PO POLANCO 08/06/23 08/06/23 History Mcg = 86798 Iu)] Fludrocortisone [Florinef] 0.2 mg PO DAILY 08/06/23 08/06/23 History HYDROcodone/APAP 5-325MG [[place] 1 tab PO Q12H PRN 08/06/23 08/06/23 History 5-325] Insulin Degludec [Tresiba 60 units SQ DAILY 08/06/23 08/06/23 History Flextouch U-100 Pen] Lisinopril-Hctz 20-12.5 mg 1 tab PO DAILY 08/06/23 08/06/23 History [Zestoretic 20-12.5] Allergies Allergy/AdvReac Type Severity Reaction Status Date / Time No Known Allergies Allergy Verified 08/06/23 18:07 Physical Exam Vitals: Vital Signs Temp Pulse Pulse Resp BP BP Pulse Ox 08/07/23 07:57 97.7 F 63 16 121/67 98 08/07/23 02:56 98.1 F 60 16 147/72 96 08/06/23 20:41 97.8 F 66 16 144/78 97 08/06/23 20:05 69 18 144/68 97 08/06/23 15:29 98.4 F 71 18 145/58 99 Intake and Output 08/06/23 08/07/23 08/07/23 22:59 06:59 14:59 Other: Voiding Method Toilet Urinal Diaper # Voids 1 5 Weight 127.006 kg Results 08/07/23 06:03 08/07/23 06:03 Cardiac Enzymes 08/06/23 08/06/23 Range/Units 15:54 15:54 AST 60 H (17-59) U/L Troponin I <0.012 (0.000-0.034) ng/mL Coagulation 08/06/23 Range/Units 15:54 PT 11.0 (10.0-12.5) sec APTT 21.9 L (22.0-30.0) sec CBC 08/06/23 Range/Units 15:54 WBC 5.5 (3.8-10.6) k/uL RBC 4.28 L (4.30-5.90) m/uL Hgb 13.7 (13.0-17.5) gm/dL Hct 41.3 (39.0-53.0) % Plt Count 183 (150-450) k/uL Comprehensive Metabolic Panel 08/06/23 Range/Units 15:54 Sodium 134 L (137-145) mmol/L Potassium 4.7 (3.5-5.1) mmol/L Chloride 104 (98-107) mmol/L Carbon Dioxide 26 (22-30) mmol/L BUN 29 H (9-20) mg/dL Creatinine 1.11 (0.66-1.25) mg/dL Glucose 260 H (74-99) mg/dL Calcium 9.1 (8.4-10.2) mg/dL AST 60 H (17-59) U/L ALT 67 H (4-49) U/L Alkaline Phosphatase 65 (38-126) U/L Total Protein 6.7 (6.3-8.2) g/dL Albumin 3.6 (3.5-5.0) g/dL Current Medications Generic Name Dose Route Start Last Admin Trade Name Freq PRN Reason Stop Dose Admin Hydrocodone Bitart/Acetaminophen 1 each 08/06/23 22:55 08/06/23 23:05 Hydrocodone/Apap 5-325mg 1 Each Tab PO 1 each Q12H PRN Administration Pain Aspirin 81 mg 08/07/23 09:00 Aspirin 81 Mg PO DAILY MILLY Atorvastatin Calcium 40 mg 08/06/23 21:00 08/06/23 22:04 Atorvastatin 40 Mg Tab PO 40 mg HS MILLY Administration Clopidogrel Bisulfate 75 mg 08/07/23 09:00 Clopidogrel 75 Mg Tab PO DAILY MILLY Dextrose/Water 25 ml 08/06/23 21:14 Dextrose 50% Syringe 50 Ml IVP PER PROTOCOL PRN Hypoglycemia Protocol Dextrose/Water 50 ml 08/06/23 21:14 Dextrose 50% Syringe 50 Ml IVP PER PROTOCOL PRN Hypoglycemia Protocol Docusate Sodium 300 mg 08/07/23 09:00 Docusate 100 Mg Cap PO DAILY [facility] Finasteride 5 mg 08/07/23 09:00 Finasteride 5 Mg Tab PO DAILY [facility] Fludrocortisone Acetate 0.2 mg 08/07/23 09:00 Fludrocortisone 0.1 Mg Tab PO DAILY [facility] [place] Lisinopril/HCTZ 1 each 08/07/23 09:00 Lisinopril-Hctz 20-12.5 Mg 1 Each Tab PO DAILY [facility] [place] Sodium Chloride 1,000 mls @ 130 mls/hr 08/06/23 18:30 08/07/23 03:34 Saline 0.9% IV Not Given .Q7H42M [facility] Insulin Aspart 0 unit 08/06/23 22:13 08/07/23 06:16 Insulin Aspart (Novolog) 100 Unit/Ml Vial SQ 6 unit ACHS MILLY Administration Protocol Insulin Detemir 60 unit 08/07/23 07:00 Insulin Detemir (Levemir) 100 Unit/Ml Syr SQ DAILY@0700 [facility] Loratadine 10 mg 08/07/23 09:00 Loratadine 10 Mg Tab PO DAILY [facility] Memantine 5 mg 08/07/23 09:00 Memantine 5 Mg Tab PO BID [facility] Morphine Sulfate 4 mg 08/06/23 18:30 Morphine Sulfate 4 Mg/Ml Syringe IV Q4HR PRN Severe Pain (Scale 7 to 10) Naloxone HCl 0.2 mg 08/06/23 18:30 Naloxone 0.4 Mg/Ml 1 Ml Vial IV Q2M PRN Opioid Reversal Ondansetron HCl 4 mg 08/06/23 18:30 Ondansetron 4 Mg/2 Ml Vial IVP Q8HR PRN Nausea And Vomiting Pantoprazole Sodium 40 mg 08/07/23 07:30 08/07/23 06:12 Pantoprazole 40 Mg Tablet PO 40 mg AC-BID [facility] Administration Ropinirole HCl 0.5 mg 08/06/23 21:00 08/06/23 22:04 Ropinirole Hcl 0.25 Mg Tab PO 0.5 mg HS MILLY Administration Tamsulosin HCl 0.4 mg 08/06/23 21:00 08/06/23 22:04 Tamsulosin 0.4 Mg Cap.Er.24h PO 0.4 mg HS MILLY Administration Intake and Output 08/06/23 08/07/23 08/07/23 22:59 06:59 14:59 Other: Voiding Method Toilet Urinal Diaper # Voids 1 5 Weight 127.006 kg 08/06/23 15:54 08/06/23 15:54
--- NOTE | 2023-08-07 13:35 | CA ---
Transthoracic Echo Report Name: Yury Brewer Age: 73 Gender: M : 1950 Exam Date: 08/07/2023 11:05 Exam Location: [place] [facility] Ht (in): 72 Wt (lb): 280 Ordering Physician: Jennie Monterroso Attending/Referring Phys: [id number], Kriss [employer] Mechanic Emily Franco RDCS Procedure CPT: Indications: LVF Cardiac Hx: Technical Quality: Poor Contrast 1: Total Dose (mL): Contrast 2: Total Dose (mL): MEASUREMENTS (Male / Female) Normal Values 2D ECHO LV Diastolic Diameter PLAX 4.8 cm 4.2 - 5.9 / 3.9 - 5.3 cm LV Systolic Diameter PLAX 3.2 cm IVS Diastolic Thickness 0.7 cm 0.6 - 1.0 / 0.6 - 0.9 cm LVPW Diastolic Thickness 1.2 cm 0.6 - 1.0 / 0.6 - 0.9 cm LV Relative Wall Thickness 0.4 RV Internal Dim ED PLAX 3.2 cm LVOT Diameter 2.1 cm Aortic Root Diameter 3.1 cm Ascending Aorta Diameter 3.8 cm DOPPLER AV Peak Velocity 158.4 cm/s AV Peak Gradient 10.0 mmHg AV Mean Velocity 98.8 cm/s AV Mean Gradient 4.6 mmHg AV Velocity Time Integral 35.3 cm LVOT Peak Velocity 106.4 cm/s LVOT Peak Gradient 4.5 mmHg LVOT Velocity Time Integral 25.6 cm LVOT Stroke Volume 86.7 cm??? LVOT Stroke Volume Index 35.3 ml/m??? LVOT Cardiac Index 2176.5 cm???/min???m??? AV Area Cont Eq vti 2.5 cm??? AV Area Cont Eq pk 2.3 cm??? Mitral E Point Velocity 66.5 cm/s Mitral A Point Velocity 85.8 cm/s Mitral E to A Ratio 0.8 MV Deceleration Time 146.3 ms MV E' Velocity 6.5 cm/s Mitral E to MV E' Ratio 10.2 PV Peak Velocity 87.8 cm/s PV Peak Gradient 3.1 mmHg FINDINGS Left Ventricle Left ventricular ejection fraction is estimated at 55-60 %. Left ventricular cavity size normal. Left ventricular wall thickness normal. No obvious regional wall motion abnormalities. Right Ventricle Normal right ventricular size and function. Unable to estimate the right ventricular systolic pressure. Right Atrium Normal right atrial size. Left Atrium Normal left atrial size. Mitral Valve Structurally normal mitral valve. No mitral stenosis, regurgitation or prolapse. Aortic Valve Trileaflet aortic valve. No aortic valve stenosis or regurgitation. Tricuspid Valve Structurally normal tricuspid valve. No tricuspid stenosis. Trace tricuspid regurgitation. Pulmonic Valve Structurally normal pulmonic valve. No pulmonic regurgitation. No pulmonic stenosis. Pericardium No pericardial effusion. Aorta Normal size aortic root and proximal ascending aorta. CONCLUSIONS 1. Normal ventricle size and systolic function 2. Trace tricuspid regurgitation with no significant valvular abnormalities Previewed by: Dr. Freddy Street MD (Electronically Signed) Final Date: 07 Aug 2023 13:34
--- NOTE | 2023-08-07 13:36 | CA ---
Lexiscan Nuclear Stress Test Report Name: Yury Brewer Exam Date: 08/07/2023 10:01 Exam Location: [place] [facility] Stress Ht (in): 72 Wt (lb): 280 BSA: 2.46 Ordering Phys: Jennie Monterroso Referring Phys: SHANTA, Technologist: WEI,, Age: 73 Gender: M : 1950 Procedure CPT: Indications: Reflex order-Stress test ICD-10 Codes: Patient History: Chest pain, short of breath and fatigue Medications: Meds past 24 hrs: Pretest Chest Pain: STRESS TEST Lexiscan Protocol Exercise Duration (min:sec): 02:[address] Depressions (mm): Angina Score: Howell Score: Resting HR (bpm): 50 Peak HR (bpm): 76 Resting BP (mmHg): 150 / 61 Peak BP (mmHg): 112 / 42 MPHR: 148 Target HR: 126 % MPHR: 51 METS: 1.0 Total Dose: Peak Dose: Atropine: Double Product: 8512 BP Response: Stress Termination: Infusion complete Stress Symptoms: No chest pain or symptoms Stress Summary: ECG ANALYSIS Resting ECG: Sinus rhythm. Normal conduction. No arrhythmias. Normal repolarization. Stress ECG: No ECG changes from baseline with Lexiscan infusion. CONCLUSIONS No ECG evidence of ischemia with Lexiscan infusion. Nuclear test results to follow. Dr. Freddy Street MD (Electronically Signed) Final Date: 07 Aug 2023 13:35
--- NOTE | 2023-08-07 18:39 | P.HPIM ---
History of Present Illness H&P Date: 08/07/23 Yruy Brewer, is a 73-year-old male who presented to [facility] emergency room with a chief complaint of generalized weakness and chest pain He was evaluated in the emergency room vital examination on presentation revealed a temperature of 98.4 pulse 71 respiration 18 blood pressure 145/58 pulse ox 99% on room air Laboratory data revealed a white blood count of 5.5 hemoglobin 13.7 platelet count 183 sodium 134 potassium 4.7 chloride 104 CO2 26 BUN 29 creatinine 1.1 lactic acid 2.6 Testing in the emergency room revealed EKG reveals sinus rhythm with marked sinus arrhythmia, chest x-ray revealed no evidence for acute pulmonary disease Patient was admitted to medical floor for further evaluation and treatment, cardiology consultation was requested in that regard to episodes of chest pain Past medical history is significant for insulin-dependent diabetes mellitus with suboptimal control, patient had an insulin pump in the past but was malfunctioning, now he is using insulin injections with poor control, underlying history of peripheral neuropathy, underlying history of autonomic dysfunction, underlying history of hypertension, hyperlipidemia, underlying history of nonobstructive coronary artery disease Past Medical History Past Medical History: Blood Disorder, Coronary Artery Disease (CAD), CVA/TIA, Dementia, Diabetes Mellitus, Eye Disorder, GERD/Reflux, Hearing Disorder / Deafness, Hyperlipidemia, Hypertension, Neurologic Disorder, Osteoarthritis (OA), Prostate Disorder, Renal Disease, Syncope Additional Past Medical History / Comment(s): IDDM type I with insulin pump, bilateral legs/feet/arms and hand neuropathy, chronic renal disease, difficulty swallowing, RLS, factor V, early dementia, BPH, bilateral tinnitis, R eye retinal bleeds x2, chronic low back pain with bilateral sciatica which is worse on the right side, bilateral shoulder and cervical pain, possible TIAs (01/13) History of Any Multi-Drug Resistant Organisms: None Reported Past Surgical History: Adenoidectomy, Back Surgery, Heart Catheterization, Orthopedic Surgery, Tonsillectomy Additional Past Surgical History / Comment(s): Lumbar laminectomy, R knee cartildge surgery, bilateral carpal tunnel released, sen wrist dequevain surgery, R rotator cuff repair, L foot pins and plates, EGD, colonoscopy, R eye laser eye surgery for retinal bleeds, bilateral cataract removals/lens implants, L arm broke- did not operate on yet Past Anesthesia/Blood Transfusion Reactions: Motion Sickness Past Psychological History: Depression Additional Psychological History / Comment(s): Pt resides with his spouse and their adult son. Pt uses a walker prn. He drives. He is currently managing his own medications but admits this is getting more difficult. Smoking Status: Former smoker Past Alcohol Use History: None Reported Additional Past Alcohol Use History / Comment(s): Pt started smoking in 1962 and quit in 1987 Past Drug Use History: None Reported - Past Family History Brother(s) Family Medical History: Blood Disorder, Deep Vein Thrombosis (DVT) Mother Additional Family Medical History / Comment(s): Mother had palsey Father Family Medical History: COPD, Myocardial Infarction (PR) Additional Family Medical History / Comment(s): Father of COPD/PR at the age of 72 yrs. Medications and Allergies Home Medications Medication Instructions Recorded Confirmed Type Aspirin 81 mg PO DAILY 10/16/13 08/06/23 History Pantoprazole [Protonix] 40 mg PO BID 01/20/18 08/06/23 History rOPINIRole HCL [Requip] 0.5 mg PO HS 30 Days #30 tablet 05/09/18 08/06/23 Rx Tamsulosin [Flomax] 0.4 mg PO HS 11/09/18 08/06/23 History Cetirizine HCl [Zyrtec] 10 mg PO DAILY 08/21/22 08/06/23 History Citalopram Hydrobromide 40 mg PO DAILY 08/21/22 08/06/23 History [Citalopram HBr] Docusate [Colace] 300 mg PO DAILY 10/09/22 08/06/23 History Memantine [Namenda] 5 mg PO BID 10/09/22 08/06/23 History Finasteride [Proscar] 5 mg PO DAILY 12/27/22 08/06/23 History INSULIN ASPART (NovoLOG) [NovoLOG See Protocol SQ ACHS #1 pen 01/31/23 08/06/23 Rx (formulary)] Clopidogrel [Plavix] 75 mg PO DAILY 08/06/23 08/06/23 History Ergocalciferol [Vitamin D2 (1250 1,250 mcg PO POLANCO 08/06/23 08/06/23 History Mcg = 51607 Iu)] Fludrocortisone [Florinef] 0.2 mg PO DAILY 08/06/23 08/06/23 History HYDROcodone/APAP 5-325MG [[place] 1 tab PO Q12H PRN 08/06/23 08/06/23 History 5-325] Insulin Degludec [Tresiba 60 units SQ DAILY 08/06/23 08/06/23 History Flextouch U-100 Pen] Lisinopril-Hctz 20-12.5 mg 1 tab PO DAILY 08/06/23 08/06/23 History [Zestoretic 20-12.5] Atorvastatin [Lipitor] 80 mg PO HS 30 Days #30 tab 08/07/23 Rx Metoprolol Tartrate [Lopressor] 12.5 mg PO BID 30 Days #60 tab 08/07/23 Rx Allergies Allergy/AdvReac Type Severity Reaction Status Date / Time No Known Allergies Allergy Verified 08/06/23 18:07 Physical Exam Vitals: Vital Signs Temp Pulse Pulse Resp BP BP Pulse Ox 08/07/23 07:57 97.7 F 63 16 121/67 98 08/07/23 02:56 98.1 F 60 16 147/72 96 08/06/23 20:41 97.8 F 66 16 144/78 97 08/06/23 20:05 69 18 144/68 97 08/06/23 15:29 98.4 F 71 18 145/58 99 Intake and Output 08/06/23 08/07/23 08/07/23 22:59 06:59 14:59 Other: Voiding Method Toilet Urinal Diaper # Voids 1 5 Weight 127.006 kg In general patient is alert and oriented x 3 in no distress HEENT head normocephalic and atraumatic Neck is supple no JVD no goiter no lymphadenopathy no carotid bruit Chest examination is clear to auscultation no crackles no wheezing Cardiac exam reveals regular heart sounds S1 and S2 no gallops no murmurs Abdomen is soft nontender no organomegaly with normal bowel sounds Extremity exam reveals no edema no cyanosis or clubbing Neurological examination reveals no gross focal deficits Results CBC & Chem 7: 08/07/23 06:03 08/07/23 06:03 Labs: Abnormal Lab Results - Last 24 Hours (Table) 08/06/23 08/06/23 08/06/23 Range/Units 15:54 15:54 15:54 RBC 4.28 L (4.30-5.90) m/uL Hgb (13.0-17.0) g/dL Hct (39.6-50.0) % APTT 21.9 L (22.0-30.0) sec Sodium 134 L (137-145) mmol/L BUN 29 H (9-20) mg/dL Glucose 260 H (74-99) mg/dL POC Glucose (mg/dL) (70-110) mg/dL Hemoglobin A1c (<=6.0) % Plasma Lactic Acid F[place]se (0.7-2.0) mmol/L AST 60 H (17-59) U/L ALT 67 H (4-49) U/L 08/06/23 08/06/23 08/06/23 Range/Units 15:54 19:12 19:27 RBC (4.30-5.90) m/uL Hgb (13.0-17.0) g/dL Hct (39.6-50.0) % APTT (22.0-30.0) sec Sodium (137-145) mmol/L BUN (9-20) mg/dL Glucose (74-99) mg/dL POC Glucose (mg/dL) 294 H (70-110) mg/dL Hemoglobin A1c (<=6.0) % Plasma Lactic Acid [place] 2.3 H* 2.6 H* (0.7-2.0) mmol/L AST (17-59) U/L ALT (4-49) U/L 08/06/23 08/07/23 08/07/23 Range/Units 22:12 06:03 06:03 RBC 3.98 L (4.30-5.90) m/uL Hgb 12.6 L (13.0-17.0) g/dL Hct 37.2 L (39.6-50.0) % APTT (22.0-30.0) sec Sodium (137-145) mmol/L BUN (9-20) mg/dL Glucose (74-99) mg/dL POC Glucose (mg/dL) 445 H (70-110) mg/dL Hemoglobin A1c 9.9 H (<=6.0) % Plasma Lactic Acid [place] (0.7-2.0) mmol/L AST (17-59) U/L ALT (4-49) U/L 08/07/23 Range/Units 06:13 RBC (4.30-5.90) m/uL Hgb (13.0-17.0) g/dL Hct (39.6-50.0) % APTT (22.0-30.0) sec Sodium (137-145) mmol/L BUN (9-20) mg/dL Glucose (74-99) mg/dL POC Glucose (mg/dL) 216 H (70-110) mg/dL Hemoglobin A1c (<=6.0) % Plasma Lactic Acid [place] (0.7-2.0) mmol/L AST (17-59) U/L ALT (4-49) U/L Thrombosis Risk Factor Assmnt - Choose All That Apply Any of the Below Risk Factors Present?: Yes Each Factor Represents 1 point: Obesity (BMI >25) Other Risk Factors: Yes Each Risk Factor Represents 2 Points: Age 61-74 years Other congenital or acquired thrombophilia - If yes, enter type in comment: No Thrombosis Risk Factor Assessment Total Risk Factor Score: 3 Thrombosis Risk Factor Assessment Level: Moderate Risk Assessment and Plan Plan: episodes of chest pain underlying history of insulin-dependent diabetes mellitus with poor control mild elevation in lactic acid on presentation without evidence of any infection on chest x-ray or urine analysis underlying history of peripheral neuropathy underlying history of autonomic dysfunction Underlying history of hypertension Underlying history of hyperlipidemia Underlying history of coronary artery disease at this time patient is admitted to telemetry floor Home medications reviewed and reordered Cardiology consultation was requested Further course will depend on testing results.
--- NOTE | 2023-08-07 18:43 | P.DS ---
Providers Date of admission: 08/06/23 18:30 Expected date of discharge: 08/07/23 Attending physician: Ej Gibson Consults: 08/06/23 18:30 Consult Physician Routine Consulting Provider: Freddy Street Consult Reason/Comments: cp Do you want consulting provider notified?: Yes Primary care physician: Ejsteven Gibson [facility] Course: diagnosis on discharge: episodes of chest pain underlying history of insulin-dependent diabetes mellitus with poor control mild elevation in lactic acid on presentation without evidence of any infection on chest x-ray or urine analysis underlying history of peripheral neuropathy underlying history of autonomic dysfunction Underlying history of hypertension Underlying history of hyperlipidemia Underlying history of coronary artery disease Hospital course: Yury Brewer, is a 73-year-old male who presented to [facility] emergency room with a chief complaint of generalized weakness and chest pain He was evaluated in the emergency room vital examination on presentation revealed a temperature of 98.4 pulse 71 respiration 18 blood pressure 145/58 pulse ox 99% on room air Laboratory data revealed a white blood count of 5.5 hemoglobin 13.7 platelet count 183 sodium 134 potassium 4.7 chloride 104 CO2 26 BUN 29 creatinine 1.1 lactic acid 2.6 Testing in the emergency room revealed EKG reveals sinus rhythm with marked sinus arrhythmia, chest x-ray revealed no evidence for acute pulmonary disease Patient was admitted to medical floor for further evaluation and treatment, cardiology consultation was requested in that regard to episodes of chest pain Past medical history is significant for insulin-dependent diabetes mellitus with suboptimal control, patient had an insulin pump in the past but was malfunctioning, now he is using insulin injections with poor control, underlying history of peripheral neuropathy, underlying history of autonomic dysfunction, underlying history of hypertension, hyperlipidemia, underlying history of nonobstructive coronary artery disease On 08/07/2023 patient was seen and examined on the medical floor he is alert and oriented 3 in no apparent distress he underwent a stress test with cardiology and was reviewed and [address] Bhardwaj and was cleared for discharge from cardiology standpoint patient stated that he is feeling well he was able to ambulate in the room without difficulty he will be discharged to home today he will follow with cardiology for further evaluation as outpatient, he will also follow-up with endocrinology for reassessment for insulin pump and possible better control of his diabetes. Patient Condition at Discharge: Fair Plan - Discharge Summary Discharge Rx Participant: No New Discharge Prescriptions: New Atorvastatin [Lipitor] 80 mg PO HS 30 Days #30 tab Metoprolol Tartrate [Lopressor] 12.5 mg PO BID 30 Days #60 tab Continue Aspirin 81 mg PO DAILY Pantoprazole [Protonix] 40 mg PO BID rOPINIRole HCL [Requip] 0.5 mg PO HS 30 Days #30 tablet Tamsulosin [Flomax] 0.4 mg PO HS Cetirizine HCl [Zyrtec] 10 mg PO DAILY Memantine [Namenda] 5 mg PO BID Finasteride [Proscar] 5 mg PO DAILY INSULIN ASPART (NovoLOG) [NovoLOG (formulary)] See Protocol SQ ACHS #1 pen Lisinopril-Hctz 20-12.5 mg [Zestoretic 20-12.5] 1 tab PO DAILY Clopidogrel [Plavix] 75 mg PO DAILY Fludrocortisone [Florinef] 0.2 mg PO DAILY Insulin Degludec [Tresiba Flextouch U-100 Pen] 60 units SQ DAILY Ergocalciferol [Vitamin D2 (1250 Mcg = 15640 Iu)] 1,250 mcg PO POLANCO Citalopram Hydrobromide [Citalopram HBr] 40 mg PO DAILY Docusate [Colace] 300 mg PO DAILY HYDROcodone/APAP 5-325MG [[place] 5-325] 1 tab PO Q12H PRN PRN Reason: Pain Discontinued Atorvastatin [Lipitor] 40 mg PO HS Discharge Medication List Aspirin 81 mg PO DAILY 10/16/13 [History] Pantoprazole [Protonix] 40 mg PO BID 01/20/18 [History] rOPINIRole HCL [Requip] 0.5 mg PO HS 30 Days #30 tablet 05/09/18 [Rx] Tamsulosin [Flomax] 0.4 mg PO HS 11/09/18 [History] Cetirizine HCl [Zyrtec] 10 mg PO DAILY 08/21/22 [History] Citalopram Hydrobromide [Citalopram HBr] 40 mg PO DAILY 08/21/22 [History] Docusate [Colace] 300 mg PO DAILY 10/09/22 [History] Memantine [Namenda] 5 mg PO BID 10/09/22 [History] Finasteride [Proscar] 5 mg PO DAILY 12/27/22 [History] INSULIN ASPART (NovoLOG) [NovoLOG (formulary)] See Protocol SQ ACHS #1 pen 01/31/23 [Rx] Clopidogrel [Plavix] 75 mg PO DAILY 08/06/23 [History] Ergocalciferol [Vitamin D2 (1250 Mcg = 21773 Iu)] 1,250 mcg PO POLANCO 08/06/23 [History] Fludrocortisone [Florinef] 0.2 mg PO DAILY 08/06/23 [History] HYDROcodone/APAP 5-325MG [[place]lem[place] 5-325] 1 tab PO Q12H PRN 08/06/23 [History] Insulin Degludec [Tresiba Flextouch U-100 Pen] 60 units SQ DAILY 08/06/23 [History] Lisinopril-Hctz 20-12.5 mg [Zestoretic 20-12.5] 1 tab PO DAILY 08/06/23 [History] Atorvastatin [Lipitor] 80 mg PO HS 30 Days #30 tab 08/07/23 [Rx] Metoprolol Tartrate [Lopressor] 12.5 mg PO BID 30 Days #60 tab 08/07/23 [Rx] Follow up Appointment(s)/Referral(s): Librado Bhardwaj MD [STAFF PHYSICIAN] - 08/21/23 1:00 pm Ej Gibson MD [Primary Care Provider] - 1-2 days Patient Instructions/Handouts: Chest Pain (DC) Discharge Disposition: HOME SELF-CARE
[2023-08-07] MEDS ORDERED: ATORVASTATIN 80 MG TAB PO SCH (21:00)
[2023-08-07] MEDS ORDERED: METOPROLOL TARTRATE 12.5 MG TAB PO SCH (21:00)
[2023-08-07] MEDS ORDERED: INSULIN ASPART (NovoLOG) 100 UNIT/ML VIAL SQ SCH (21:15)
== END 2023-08-07 14:46 | disposition home or self-care (01) ==
LOC: EC 15:27 → 6NMEDSUR 18:30
PROVIDERS: ADMIT Internal Medicine; ATTEND Internal Medicine
DX: R07.89 Other chest pain (principal); R94.39 Abnormal result of other cardiovascular function study; E10.65 Type 1 diabetes mellitus with hyperglycemia; I25.10 Atherosclerotic heart disease of native coronary artery without angina pectoris; F03.90 Unspecified dementia, unspecified severity, without behavioral disturbance, psychotic disturbance, mood disturbance, and anxiety; K21.9 Gastro-esophageal reflux disease without esophagitis; E78.5 Hyperlipidemia, unspecified; E10.43 Type 1 diabetes mellitus with diabetic autonomic (poly)neuropathy; E10.22 Type 1 diabetes mellitus with diabetic chronic kidney disease; N40.0 Benign prostatic hyperplasia without lower urinary tract symptoms; I12.9 Hypertensive chronic kidney disease with stage 1 through stage 4 chronic kidney disease, or unspecified chronic kidney disease; N18.9 Chronic kidney disease, unspecified; F32.A Depression, unspecified; R29.6 Repeated falls; E66.9 Obesity, unspecified; Z68.38 Body mass index [BMI] 38.0-38.9, adult; Z86.73 Personal history of transient ischemic attack (TIA), and cerebral infarction without residual deficits; Z87.891 Personal history of nicotine dependence; Z96.41 Presence of insulin pump (external) (internal); Z79.02 Long term (current) use of antithrombotics/antiplatelets; Z79.4 Long term (current) use of insulin; Z79.82 Long term (current) use of aspirin; Z79.899 Other long term (current) drug therapy; N17.9 Acute kidney failure, unspecified; R41.82 Altered mental status, unspecified; R53.1 Weakness
CPT/HCPCS: 36415; 71046; 78452; 80053; 83036; 83605; 83735; 84100; 84443; 84484; 85025; 85610; 85730; 93005; 93017; 93306; 99285

== ENCOUNTER 2023-09-28 02:11 | Emergency (ER) | payer MEDICARE, OTHER ==
[2023-09-28 02:18] LABS: Glucose,Whole Blood >600 mg/dL (70-110)
[2023-09-28 02:31] VITALS: PULSE 53; RESP 20
[2023-09-28] MEDS: SODIUM CHLORIDE 0.9% 1,000 ML IV ONE (02:39)
--- NOTE | 2023-09-28 02:39 | ED ---
General Adult HPI - General Chief complaint: Fall Stated complaint: Fall Time Seen by Provider: 09/28/23 02:17 Source: patient, EMS, RN notes reviewed, old records reviewed Mode of arrival: EMS Limitations: no limitations - History of Present Illness Initial comments: 73-year-old male presents for evaluation of right foot pain after fall. Patient states that he has been incontinent of urine and has had increased urination and he had urinated accidentally on the bathroom floor which caused him to slip injuring the right foot. Patient is a insulin-dependent diabetic and he has not checked his sugar recently. Sugar upon arrival was greater than 600. - Related Data Home Medications Medication Instructions Recorded Confirmed Aspirin 81 mg PO DAILY 10/16/13 08/06/23 Pantoprazole [Protonix] 40 mg PO BID 01/20/18 08/06/23 Tamsulosin [Flomax] 0.4 mg PO HS 11/09/18 08/06/23 Cetirizine HCl [Zyrtec] 10 mg PO DAILY 08/21/22 08/06/23 Citalopram Hydrobromide 40 mg PO DAILY 08/21/22 08/06/23 [Citalopram HBr] Docusate [Colace] 300 mg PO DAILY 10/09/22 08/06/23 Memantine [Namenda] 5 mg PO BID 10/09/22 08/06/23 Finasteride [Proscar] 5 mg PO DAILY 12/27/22 08/06/23 Clopidogrel [Plavix] 75 mg PO DAILY 08/06/23 08/06/23 Ergocalciferol [Vitamin D2 (1250 1,250 mcg PO POLANCO 08/06/23 08/06/23 Mcg = 66600 Iu)] Fludrocortisone [Florinef] 0.2 mg PO DAILY 08/06/23 08/06/23 HYDROcodone/APAP 5-325MG [[place] 1 tab PO Q12H PRN 08/06/23 08/06/23 5-325] Insulin Degludec [Tresiba 60 units SQ DAILY 08/06/23 08/06/23 Flextouch U-100 Pen] Lisinopril-Hctz 20-12.5 mg 1 tab PO DAILY 08/06/23 08/06/23 [Zestoretic 20-12.5] Previous Rx's Medication Instructions Recorded rOPINIRole HCL [Requip] 0.5 mg PO HS 30 Days #30 tablet 05/09/18 INSULIN ASPART (NovoLOG) [NovoLOG See Protocol SQ ACHS #1 pen 01/31/23 (formulary)] Atorvastatin [Lipitor] 80 mg PO HS 30 Days #30 tab 08/07/23 Metoprolol Tartrate [Lopressor] 12.5 mg PO BID 30 Days #60 tab 08/07/23 Allergies Allergy/AdvReac Type Severity Reaction Status Date / Time No Known Allergies Allergy Verified 09/28/23 02:31 Review of Systems ROS Statement: Those systems with pertinent positive or pertinent negative responses have been documented in the HPI. ROS Other: All systems not noted in ROS Statement are negative. Past Medical History Past Medical History: Blood Disorder, Coronary Artery Disease (CAD), CVA/TIA, Dementia, Diabetes Mellitus, Eye Disorder, GERD/Reflux, Hearing Disorder / Deafness, Hyperlipidemia, Hypertension, Neurologic Disorder, Osteoarthritis (OA), Prostate Disorder, Renal Disease, Syncope Additional Past Medical History / Comment(s): IDDM type I with insulin pump, bilateral legs/feet/arms and hand neuropathy, chronic renal disease, difficulty swallowing, RLS, factor V, early dementia, BPH, bilateral tinnitis, R eye retinal bleeds x2, chronic low back pain with bilateral sciatica which is worse on the right side, bilateral shoulder and cervical pain, possible TIAs (01/13) History of Any Multi-Drug Resistant Organisms: None Reported Past Surgical History: Adenoidectomy, Back Surgery, Heart Catheterization, Orthopedic Surgery, Tonsillectomy Additional Past Surgical History / Comment(s): Lumbar laminectomy, R knee cartildge surgery, bilateral carpal tunnel released, sen wrist dequevain surgery, R rotator cuff repair, L foot pins and plates, EGD, colonoscopy, R eye laser eye surgery for retinal bleeds, bilateral cataract removals/lens implants, L arm broke- did not operate on yet Past Anesthesia/Blood Transfusion Reactions: Motion Sickness Past Psychological History: Depression Smoking Status: Former smoker Past Alcohol Use History: None Reported Past Drug Use History: None Reported - Past Family History Brother(s) Family Medical History: Blood Disorder, Deep Vein Thrombosis (DVT) Mother Additional Family Medical History / Comment(s): Mother had palsey Father Family Medical History: COPD, Myocardial Infarction (ME) Additional Family Medical History / Comment(s): Father of COPD/ME at the age of 72 yrs. General Exam General appearance: alert, in no apparent distress Head exam: Present: atraumatic, normocephalic Eye exam: Present: normal appearance, PERRL ENT exam: Present: mucous membranes dry Neck exam: Present: normal inspection. Absent: tenderness, meningismus Respiratory exam: Present: normal lung sounds bilaterally. Absent: respiratory distress, wheezes Cardiovascular Exam: Present: normal rhythm, bradycardia GI/Abdominal exam: Present: soft. Absent: distended, tenderness, guarding Extremities exam: Present: tenderness (Foot, no gross deformity), normal capillary refill Neurological exam: Present: alert, oriented X3 Psychiatric exam: Present: normal affect, normal mood Skin exam: Present: warm, dry, intact. Absent: cyanosis, diaphoretic Course Vital Signs 09/28/23 02:25 Temperature 98.2 F Pulse Rate 53 L Respiratory 20 Rate Blood Pressure 119/59 O2 Sat by Pulse 97 Oximetry Procedures - Orthopedic Splinting/Casting Injury #1 Side: right Lower Extremity Injury Location: foot Lower Extremity Immobilizer: posterior splint Medical Decision Making - Medical Decision Making Was pt. sent in by a medical professional or institution (ALYSSIA Garnett, CRUISE COORDINATOR, urgent care, hospital, or shelter...) When possible be specific @ -No Did you speak to anyone other than the patient for history (EMS, parent, family, police, friend...)? What history was obtained from this source @ -No Did you review nursing and triage notes (agree or disagree)? Why? @ -I reviewed and agree with nursing and triage notes Were old charts reviewed (outside hosp., previous admission, EMS record, old EKG, old radiological studies, urgent care reports/EKG's, shelter records)? Report findings @ -No old charts were reviewed Differential Musculoskeletal Muscular strain, contusion, ligament sprain, fracture, arthritis, septic arthritis, bursitis, cellulitis, muscle spasm, nerve compression, DVT, arterial occlusion, herpes zoster, electrolyte abnormality, tumor.... This is not meant to be in all inclusive list EKG interpreted by me (3pts min.). @Sinus bradycardia rate of 58, NJ interval 161, QRS duration 104, QTc [address] segment elevation. X-rays interpreted by me (1pt min.). @X-ray of the right foot shows a nondisplaced fracture of the second metatarsal CT interpreted by me (1pt min.). @ -None done U/S interpreted by me (1pt. min.). @ -None done What testing was considered but not performed or refused? (CT, X-rays, U/S, labs)? Why? @ -None What meds were considered but not given or refused? Why? @ -None Did you discuss the management of the patient with other professionals (professionals i.e. , PA, CRUISE COORDINATOR, lab, RT, psych nurse, social media content specialist, architecture technician, teacher, hospital security officer, caser up)? Give summary @ -No Was smoking cessation discussed for >3mins.? @ -No Was critical care preformed (if so, how long)? @ -No Were there social determinants of health that impacted care today? How? (Homelessness, low income, unemployed, alcoholism, drug addiction, transportation, low edu. Level, literacy, decrease access to med. care, alf, rehab)? @ -No Was there de-escalation of care discussed even if they declined (Discuss DNR or withdrawal of care, Hospice)? DNR status @ -No What co-morbidities impacted this encounter? (DM, HTN, Smoking, COPD, CAD, Cancer, CVA, ARF, Chemo, Hep., AIDS, mental health diagnosis, sleep apnea, morbid obesity)? @ -Diabetes Was patient admitted / discharged? Hospital course, mention meds given and r oute, prescriptions, significant lab abnormalities, going to OR and other pertinent info. @ -3-year-old male with mechanical fall, right foot fracture on x-ray of the second metatarsal nondisplaced. He is placed in a splint. Blood sugar is significantly elevated and is treated with IV fluids and insulin. This is downtrending. Patient is eager for discharge. He states he has a walker and scooter at home. He will follow-up with orthopedics regarding the foot fracture. He will closely monitor his blood sugar. Undiagnosed new problem with uncertain prognosis? @ -No Drug Therapy requiring intensive monitoring for toxicity (Heparin, Nitro, Insulin, Cardizem)? @ -No Were any procedures done? @Yes splinting of the right foot Diagnosis/symptom? @ -Fall, metatarsal fracture, hyperglycemia Acute, or Chronic, or Acute on Chronic? @ -Acute Uncomplicated (without systemic symptoms) or Complicated (systemic symptoms)? @ -Default Side effects of treatment? @ -No Exacerbation, Progression, or Severe Exacerbation? @ -No Poses a threat to life or bodily function? How? (Chest pain, USA, ME, pneumonia, PE, COPD, DKA, ARF, appy, cholecystitis, CVA, Diverticulitis, Homicidal, Suicidal, threat to staff... and all critical care pts) @ -No - Lab Data Result diagrams: 09/28/23 02:32 09/28/23 02:32 Lab Results 09/28/23 09/28/23 09/28/23 Range/Units 02:16 02:32 02:32 WBC 5.0 (3.8-10.6) k/uL RBC 3.87 L (4.30-5.90) m/uL Hgb 12.3 L (13.0-17.5) gm/dL Hct 39.2 (39.0-53.0) % MCV 101.3 H (80.0-100.0) fL MCH 31.7 (25.0-35.0) pg MCHC 31.3 (31.0-37.0) g/dL RDW 13.8 (11.5-15.5) % Plt Count 162 (150-450) k/uL MPV 9.1 Neutrophils % 46 % Lymphocytes % 45 % Monocytes % 5 % Eosinophils % 2 % Basophils % 0 % Neutrophils # 2.3 (1.3-7.7) k/uL Lymphocytes # 2.2 (1.0-4.8) k/uL Monocytes # 0.3 (0-1.0) k/uL Eosinophils # 0.1 (0-0.7) k/uL Basophils # 0.0 (0-0.2) k/uL Macrocytosis Slight Sodium 130 L (137-145) mmol/L Potassium 4.7 (3.5-5.1) mmol/L Chloride 102 (98-107) mmol/L Carbon Dioxide 22 (22-30) mmol/L Anion Gap 6 mmol/L BUN 29 H (9-20) mg/dL Creatinine 1.21 (0.66-1.25) mg/dL Est GFR (CKD-EPI)AfAm 69 (>60 ml/min/1.73 sqM) Est GFR (CKD-EPI)NonAf 60 (>60 ml/min/1.73 sqM) Glucose 605 H* (74-99) mg/dL POC Glucose (mg/dL) >600 H* (70-110) mg/dL POC Glu Window And Door Installer ID Katty Summers Plasma Lactic Acid Finesse (0.7-2.0) mmol/L Calcium 8.8 (8.4-10.2) mg/dL Magnesium 1.7 (1.6-2.3) mg/dL Total Bilirubin 0.5 (0.2-1.3) mg/dL AST 37 (17-59) U/L ALT 36 (4-49) U/L Alkaline Phosphatase 73 (38-126) U/L Total Protein 6.0 L (6.3-8.2) g/dL Albumin 3.4 L (3.5-5.0) g/dL Urine Color Urine Appearance (Clear) Urine pH (5.0-8.0) Ur Specific [place] (1.001-1.035) Urine Protein (Negative) Urine Glucose (UA) (Negative) Urine Ketones (Negative) Urine Blood (Negative) Urine Nitrite (Negative) Urine Bilirubin (Negative) Urine Urobilinogen (<2.0) mg/dL Ur Leukocyte Esterase (Negative) Acetone, Qual Negative (Negative) 09/28/23 09/28/23 09/28/23 Range/Units 02:32 02:40 04:18 WBC (3.8-10.6) k/uL RBC (4.30-5.90) m/uL Hgb (13.0-17.5) gm/dL Hct (39.0-53.0) % MCV (80.0-100.0) fL MCH (25.0-35.0) pg MCHC (31.0-37.0) g/dL RDW (11.5-15.5) % Plt Count (150-450) k/uL MPV Neutrophils % % Lymphocytes % % Monocytes % % Eosinophils % % Basophils % % Neutrophils # (1.3-7.7) k/uL Lymphocytes # (1.0-4.8) k/uL Monocytes # (0-1.0) k/uL Eosinophils # (0-0.7) k/uL Basophils # (0-0.2) k/uL Macrocytosis Sodium (137-145) mmol/L Potassium (3.5-5.1) mmol/L Chloride (98-107) mmol/L Carbon Dioxide (22-30) mmol/L Anion Gap mmol/L BUN (9-20) mg/dL Creatinine (0.66-1.25) mg/dL Est GFR (CKD-EPI)AfAm (>60 ml/min/1.73 sqM) Est GFR (CKD-EPI)NonAf (>60 ml/min/1.73 sqM) Glucose (74-99) mg/dL POC Glucose (mg/dL) 385 H (70-110) mg/dL POC Glu Window And Door Installer ID Maxi Davis Plasma Lactic Acid [place] 1.9 (0.7-2.0) mmol/L Calcium (8.4-10.2) mg/dL Magnesium (1.6-2.3) mg/dL Total Bilirubin (0.2-1.3) mg/dL AST (17-59) U/L ALT (4-49) U/L Alkaline Phosphatase (38-126) U/L Total Protein (6.3-8.2) g/dL Albumin (3.5-5.0) g/dL Urine Color Colorless Urine Appearance Clear (Clear) Urine pH 5.5 (5.0-8.0) Ur Specific [place] 1.027 (1.001-1.035) Urine Protein Negative (Negative) Urine Glucose (UA) 4+ H (Negative) Urine Ketones Negative (Negative) Urine Blood Negative (Negative) Urine Nitrite Negative (Negative) Urine Bilirubin Negative (Negative) Urine Urobilinogen <2.0 (<2.0) mg/dL Ur Leukocyte Esterase Negative (Negative) Acetone, Qual (Negative) Disposition Clinical Impression: Fall, Metatarsal fracture, Hyperglycemia Disposition: HOME SELF-CARE Condition: Fair Instructions (If sedation given, give patient instructions): Foot Fracture in Adults (ED), Fall Prevention for Older Adults (ED) Is patient prescribed a controlled substance at d/c from ED?: No Referrals: Ej Gibson MD [Primary Care Provider] - 1-2 days Jamari Bray MD [Medical Doctor] - 1-2 days Time of Disposition: 05:01
[2023-09-28 02:44] LABS: Basophils % (A) 0 %; Eosinophils # (A) 0.1 k/uL (0-0.7); Eosinophils % (A) 2 %; HCT 39.2 % (39.0-53.0); HGB 12.3 gm/dL (13.0-17.5); Lymphocytes # (A) 2.2 k/uL (1.0-4.8); Lymphocytes % (A) 45 %; MCH 31.7 pg (25.0-35.0); MCHC 31.3 g/dL (31.0-37.0); MCV 101.3 fL (80.0-100.0); Macrocytosis Slight; Mean Platelet Volume 9.1; Monocytes # (A) 0.3 k/uL (0-1.0); Monocytes % (A) 5 %; Neutrophils # (A) 2.3 k/uL (1.3-7.7); Neutrophils % (A) 46 %; Platelet Count 162 k/uL (150-450); RBC 3.87 m/uL (4.30-5.90); RDW 13.8 % (11.5-15.5)
[2023-09-28 02:54] LABS: ALT 36 U/L (4-49); AST 37 U/L (17-59); African American GFR (CKD) 69 (>60 ml/min/1.73 sqM); Albumin 3.4 g/dL (3.5-5.0); Alkaline Phosphatase 73 U/L (38-126); Anion Gap 6 mmol/L; Blood Urea Nitrogen 29 mg/dL (9-20); Calcium 8.8 mg/dL (8.4-10.2); Carbon Dioxide 22 mmol/L (22-30); Chloride 102 mmol/L (98-107); Magnesium 1.7 mg/dL (1.6-2.3); Non-African American GFR(CKD) 60 (>60 ml/min/1.73 sqM); Potassium 4.7 mmol/L (3.5-5.1); Sodium 130 mmol/L (137-145); Total Bilirubin 0.5 mg/dL (0.2-1.3)
[2023-09-28 03:19] LABS: Glucose 605 mg/dL (74-99)
[2023-09-28 03:29] LABS: Appearance,Urine Clear (Clear); Bilirubin,Urine Negative (Negative); Blood,Urine Negative (Negative); Color,Urine Colorless; Glucose,Urine (UA) 4+ (Negative); Ketones,Urine Negative (Negative); Leukocyte Esterase,Urine Negative (Negative); Nitrite,Urine Negative (Negative); PH, Urine 5.5 (5.0-8.0); Protein,Urine Negative (Negative); Specific Gravity,Urine 1.027 (1.001-1.035); Urobilinogen,Urine <2.0 mg/dL (<2.0)
[2023-09-28] MEDS: INSULIN REGULAR 100 UNIT/ML VIAL (IV) IV ONE (03:35)
--- NOTE | 2023-09-28 03:37 | XR ---
EXAM: XR Right Foot Complete, 3 or More Views CLINICAL HISTORY: ITS.REASON XR Reason: fall TECHNIQUE: Frontal, lateral and oblique views of the right foot. COMPARISON: None FINDINGS: Bones/joints: Nondisplaced fractures of the distal right second metatarsal. Tiny density adjacent to the right first metatarsal head may be related to old trauma. Small posterior calcaneal spur. No dislocation. Soft tissues: Unremarkable. No radiopaque foreign body. Vasculature: Vascular calcifications. IMPRESSION: Nondisplaced fractures of the distal right second metatarsal.
[2023-09-28 04:19] LABS: Glucose,Whole Blood 385 mg/dL (70-110)
[2023-09-28 05:12] VITALS: BP 148/53; TEMP 98.4
== END 2023-09-28 05:11 | disposition home or self-care (01) ==
LOC: EC 02:11
DX: S92.324A Nondisplaced fracture of second metatarsal bone, right foot, initial encounter for closed fracture (principal); R73.9 Hyperglycemia, unspecified; Z87.891 Personal history of nicotine dependence; W01.0XXA Fall on same level from slipping, tripping and stumbling without subsequent striking against object, initial encounter
CPT/HCPCS: 29515; 36415; 80053; 81003; 82009; 83605; 83735; 85025; 93005; 96360; 99284

== ENCOUNTER → 2023-10-01 | Outpatient (CLI) | payer OTHER, MEDICARE ==
--- NOTE | 2023-10-01 16:29 | XR ---
EXAMINATION TYPE: XR knee complete RT DATE OF EXAM: 10/01/2023 COMPARISON: None HISTORY: 73-year-old male with right knee pain TECHNIQUE: 3 views FINDINGS: Moderate degenerative joint space narrowing compartment. Tricompartmental degenerative spur ring. Visible chondrocalcinosis. Small knee joint effusion. Extensor mechanism appears intact. No acu te fracture, subluxation, or dislocation seen. IMPRESSION: Tricompartmental osteoarthrosis, at least moderate, possibly moderate to severe in the medial compart ment. Small knee joint effusion probably reactive. No acute osseous abnormality seen.
== END | disposition home or self-care (01) ==
LOC: RADXRMAIN 16:00
PROVIDERS: ATTEND Internal Medicine
DX: M17.11 Unilateral primary osteoarthritis, right knee (principal)

== ENCOUNTER 2024-08-30 09:32 | Day surgery (SDC) | payer MEDICARE, OTHER ==
[2024-08-27 12:06] VITALS: BMI 36.7
[~2024-08-30 09:32] MED LIST changes: -BACITRACIN 50,000 UNIT, POLYMYXIN B 500,000 UNIT in SODIUM CHLORIDE 0.9% IRRIGATIO 1,00... IRRIGATION ONE; -DEXAMETHASONE SOD PHOSPHATE 10 MG/ML 1 ML VIAL IV ONE; +LIDOCAINE 1% (10MG/ML) FOR IV START INTRADERMA PRN; -LIDOCAINE 1% 20 ML VIAL (10MG/ML) FOR IV START INTRADERMA PRN; -MIDAZOLAM (PF) 2 MG/2 ML VIAL IV PRN; -ONDANSETRON 4 MG/2 ML VIAL IVP ONE; +ONDANSETRON 4 MG/2 ML VIAL IVP PRN; -SCOPOLAMINE 1.5MG/72HR PATCH TRANSDERM ONE; -ceFAZolin 3 GM in SODIUM CHLORIDE 0.9% 100 ML IVPB ONE; +metroNIDAZOLE-NS PMX 500 MG in SALINE 1 100ML.BAG IVPB PRN
[2024-08-30] MEDS: IV FLUID CONTINUATION 1,000 ML IV ONE (09:54)
[2024-08-30] MEDS: LACTATED RINGERS 1,000 ML IV SCH (10:24)
[2024-08-30 10:31] LABS: Glucose,Whole Blood 222 mg/dL (70-110)
[2024-08-30 10:32] LABS: Basophils # (A) 0.02 10*3/uL (0.00-0.10); Basophils % (A) 0.3 %; Eosinophils # (A) 0.18 10*3/uL (0.04-0.35); Eosinophils % (A) 2.3 %; HGB 14.6 g/dL (13.0-17.0); Lymphocytes # (A) 2.15 10*3/uL (0.90-5.00); MCH 32.3 pg (27.0-32.0); MCV 95.1 fL (80.0-97.0); Mean Platelet Volume 11.2 fL (9.5-12.2); Monocytes # (A) 0.55 10*3/uL (0.20-1.00); Monocytes % (A) 6.9 %; Neutrophils # (A) 5.05 10*3/uL (1.80-7.70); Neutrophils % (A) 63.4 %; Platelet Count 185 10*3/uL (140-440); RBC 4.52 10*6/uL (4.40-5.60); RDW 13.2 % (11.5-14.5); WBC 7.96 10*3/uL (4.50-10.00)
[2024-08-30] MEDS: DEXAMETHASONE SOD PHOSPHATE 4 MG/ML 1 ML VIAL IV ONE (10:32)
[2024-08-30] MEDS: ACETAMINOPHEN TAB 500 MG TAB PO PRN (10:32)
[2024-08-30] MEDS: HEPARIN SODIUM,PORCINE 5,000 UNIT/ML 1 ML VIAL SQ PRN (10:33)
[2024-08-30] MEDS: ONDANSETRON 4 MG/2 ML VIAL IVP ONE (10:33)
[2024-08-30] MEDS ORDERED: PROPOFOL 10 MG/ML 20 ML VIAL IV ONE (11:10)
[2024-08-30] MEDS ORDERED: SUCCINYLCHOLINE CHLORIDE 200 MG/10 ML VIAL IV ONE (11:10)
[2024-08-30] MEDS ORDERED: LIDOCAINE 1% INJ 10MG/ML (20 ML MDV) ONE (11:10)
[2024-08-30] MEDS ORDERED: fentaNYL (PF) 50 MCG/ML 2 ML AMP ONE (11:10)
[2024-08-30] MEDS: ceFAZolin 3 GM in SODIUM CHLORIDE 0.9% 100 ML IVPB PRN (11:14)
[2024-08-30 11:34] LABS: African American GFR (CKD) 78 (>60 ml/min/1.73 sqM); Anion Gap 11 mmol/L; Blood Urea Nitrogen 20 mg/dL (9-20); Calcium 9.4 mg/dL (8.4-10.2); Carbon Dioxide 22 mmol/L (22-30); Chloride 106 mmol/L (98-107); Glucose 207 mg/dL (74-99); Non-African American GFR(CKD) 68 (>60 ml/min/1.73 sqM); Potassium 4.8 mmol/L (3.5-5.1); Sodium 139 mmol/L (137-145)
[2024-08-30] MEDS: BUPIVACAINE (PF) 0.25% 30 ML VIAL SQ ONE (11:50)
[2024-08-30] MEDS ORDERED: NALOXONE 0.4 MG/ML 1 ML VIAL IV PRN (12:10)
[2024-08-30] MEDS ORDERED: ONDANSETRON 4 MG/2 ML VIAL IVP PRN (12:10)
[2024-08-30] MEDS ORDERED: traMADol 50 MG TAB PO PRN (12:10)
[2024-08-30] MEDS ORDERED: HYDROmorphone 1 MG/ML 1 ML SYRINGE IVP PRN (12:10)
--- NOTE | 2024-08-30 12:26 | P.OP ---
Date of Procedure: 08/30/24 Procedure(s) Performed: PREOPERATIVE DIAGNOSIS: Recurrent pilonidal cyst POSTOPERATIVE DIAGNOSIS: Same PROCEDURE: Pilonidal cystectomy recurrent SURGEON: Alcides EBL: Minimal ANESTHESIA: General COMPLICATIONS: None OPERATIVE PROCEDURE: Patient was placed prone on the operating table after general anesthesia was achieved. The gluteal crease was prepped and draped in usual sterile fashion after the patient was placed in the prone jackknife position. The patient had 3 separate skin openings in the upper gluteal crease. The patient had some semipurulent drainage coming from the largest wound site. There was evidence of previous scarring from prior resection. An elliptical incision was then made around the pilonidal cyst gluteal cleft. Dissection through the subcutaneous layers took place using electrocautery. The cyst was excised fully. It did seem to extend down to the tip of the sacrum. A culture of the coccygeal tip was taken a culture was also taken of the pilonidal cyst itself. These were sent to pathology. The specimen was completely excised and sent to pathology as well. The visualized bone was viable. No necrosis visualized. The wound was then irrigated fully with saline. No bleeding was seen. As per our conversation with the patient preoperatively and in the office plan was to leave the wound open to heal by secondary intention. Wound bed was packed with lightly moistened Kerlix roll with saline. Area around the wound site was irrigated with quarter percent Marcaine solution. Sterile outer dressings applied. DISPOSITION: Stable to recovery room
[2024-08-30 12:40] LABS: Glucose,Whole Blood 169 mg/dL (70-110)
[2024-08-30] MEDS: HYDROcodone/APAP 5-325MG 1 EACH TAB PO PRN (14:11)
[2024-08-30 16:19] LABS: Glucose,Whole Blood 159 mg/dL (70-110)
[2024-08-30] MEDS ORDERED: DEXTROSE 50% SYRINGE 50 ML IVP PRN ×2 (16:33)
[2024-08-30] MEDS: HEPARIN SODIUM,PORCINE 5,000 UNIT/ML 1 ML VIAL SQ SCH (17:16)
[2024-08-30] MEDS: INSULIN LISPRO (HumaLOG) 100 UNIT/ML 10 mL VL SQ SCH (18:00)
[2024-08-30] MEDS: KETOROLAC 15 MG/ML 1 ML VIAL IVP SCH (18:00)
[2024-08-30] MEDS: ERGOCALCIFEROL 1,250 MCG (50,000 IU) CAPSULE PO SCH (19:48)
[2024-08-30 20:24] LABS: Glucose,Whole Blood 593 mg/dL (70-110)
[2024-08-30] MEDS: INSULIN LISPRO (HumaLOG) 100 UNIT/ML 10 mL VL SQ ONE (20:40)
[2024-08-30] MEDS: ATORVASTATIN 80 MG TAB PO SCH (20:41)
[2024-08-30] MEDS: METOPROLOL TARTRATE 12.5 MG TAB PO SCH (20:41)
[2024-08-30] MEDS: FAMOTIDINE 20 MG TAB PO SCH (20:41)
[2024-08-30] MEDS: MEMANTINE 5 MG TAB PO SCH (20:41)
[2024-08-30] MEDS: DOCUSATE 100 MG CAP PO SCH (20:41)
[2024-08-31 00:07] LABS: Glucose,Whole Blood 392 mg/dL (70-110)
[2024-08-31] MEDS: INSULIN LISPRO (HumaLOG) 100 UNIT/ML 10 mL VL SQ ONE (00:51)
[2024-08-31 07:01] LABS: Glucose,Whole Blood 198 mg/dL (70-110)
[2024-08-31] MEDS: DAPAGLIFLOZIN PROPANEDIOL 10 MG TABLET PO SCH (08:26)
[2024-08-31] MEDS: INSULIN GLARGINE (LANTUS) 100 UNIT/ML SYR SQ SCH (08:26)
[2024-08-31] MEDS: ASPIRIN 81 MG PO SCH (08:26)
[2024-08-31] MEDS: LORATADINE 10 MG TAB PO SCH (08:26)
[2024-08-31] MEDS: TAMSULOSIN 0.4 MG CAP.ER.24H PO SCH (08:26)
[2024-08-31] MEDS: CLOPIDOGREL 75 MG TAB PO SCH (08:26)
[2024-08-31] MEDS ORDERED: DOCUSATE 100 MG CAP PO SCH (09:00)
--- NOTE | 2024-08-31 10:55 | P.CONS ---
History of Present Illness - Reason for Consult Consult date: 08/30/24 - History of Present Illness Yury Brewer, is a 74-year-old male who presented for an elective pilonidal cyst removal with Dr. Goodrich. Patient has a past medical history of previous Pilonidal disease with previous cyst removal in his 20s but has had increased drainage and pain over the last several years requiring intervention. Additional medical history includes diabetes mellitus type 1,, CVA, dementia, diabetes, GERD, hyperlipidemia, hypertension, osteoarthritis, prostate disorder, syncope, ex-smoker. At this time patient is resting comfortably in bed Home meds have been resumed. Patient denies chest pain or shortness of breath. Patient denies nausea vomiting or diarrhea. Patient denies any urinary burning or frequency. Current vital signs temp 97.4, heart 69, respiratory 12, blood pressure 133/69 with pulse ox of 95% on room air Review of Systems Please refer to HPI otherwise unremarkable Past Medical History Past Medical History: Blood Disorder, Coronary Artery Disease (CAD), CVA/TIA, Dementia, Diabetes Mellitus, Eye Disorder, GERD/Reflux, Hearing Disorder / Deafness, Hyperlipidemia, Hypertension, Neurologic Disorder, Osteoarthritis (OA), Prostate Disorder, Renal Disease, Syncope Additional Past Medical History / Comment(s): spouse states "able to sign consents", pilonidal cyst, recent yeast infection to penis, IDDM type 1, bilateral legs/feet/arms and hand neuropathy, chronic renal disease, difficulty swallowing, RLS, factor V Leiden, early dementia, BPH, bilateral tinnitis, R eye retinal bleeds x2, chronic low back pain with bilateral sciatica which is worse on the right side, bilateral shoulder and cervical pain, possible TIAs (01/13), History of Any Multi-Drug Resistant Organisms: None Reported Past Surgical History: Adenoidectomy, Back Surgery, Heart Catheterization, Orthopedic Surgery, Tonsillectomy Additional Past Surgical History / Comment(s): Lumbar laminectomy, R knee cartildge surgery, bilateral carpal tunnel released, sen wrist dequevain surgery, R rotator cuff repair, L foot pins and plates, EGD, colonoscopy, R eye laser eye surgery for retinal bleeds, bilateral cataract removals/lens implants Past Anesthesia/Blood Transfusion Reactions: Motion Sickness Additional Past Anesthesia/Blood Transfusion Reaction / Comm: no hx blood transfusion Past Psychological History: Depression Additional Psychological History / Comment(s): Pt resides with his spouse and their adult son. Pt uses a walker prn. He drives. He is currently managing his own medications but admits this is getting more difficult. Smoking Status: Former smoker Past Alcohol Use History: None Reported Additional Past Alcohol Use History / Comment(s): Pt started smoking in 1962 and quit in 1987 Past Drug Use History: None Reported - Past Family History Brother(s) Family Medical History: Blood Disorder, Deep Vein Thrombosis (DVT) Mother Additional Family Medical History / Comment(s): Mother had palsey Father Family Medical History: COPD, Myocardial Infarction ([place]) Additional Family Medical History / Comment(s): Father of COPD/[place] at the age of 72 yrs. Medications and Allergies Home Medications Medication Instructions Recorded Confirmed Type Aspirin 81 mg PO DAILY 10/16/13 08/27/24 History rOPINIRole HCL [Requip] 0.5 mg PO HS 30 Days #30 tablet 05/09/18 08/30/24 Rx Tamsulosin [Flomax] 0.4 mg PO QAM 11/09/18 08/30/24 History Cetirizine HCl [Zyrtec] 10 mg PO DAILY 08/21/22 08/30/24 History Docusate [Colace] 300 mg PO DAILY 10/09/22 08/30/24 History INSULIN ASPART (NovoLOG) [NovoLOG See Protocol SQ ACHS #1 pen 01/31/23 08/30/24 Rx (formulary)] Clopidogrel [Plavix] 75 mg PO DAILY 08/06/23 08/27/24 History Ergocalciferol [Vitamin D2 (1250 1,250 mcg PO Q7D 08/06/23 08/27/24 History Mcg = 22121 Iu)] Atorvastatin [Lipitor] 80 mg PO HS 30 Days #30 tab 08/07/23 08/30/24 Rx Metoprolol Tartrate [Lopressor] 12.5 mg PO BID 30 Days #60 tab 08/07/23 08/30/24 Rx Dapagliflozin Propanediol [Farxiga] 10 mg PO DAILY 08/27/24 08/27/24 History Insulin Glargine (Lantus) [Lantus 75 unit SQ QAM 08/27/24 08/30/24 History Vial] Memantine HCl 5 mg PO BID 08/27/24 08/30/24 History Allergies Allergy/AdvReac Type Severity Reaction Status Date / Time No Known Allergies Allergy Verified 08/30/24 09:59 Physical Exam Vitals: Vital Signs Temp Pulse Pulse Resp BP BP Pulse Ox 08/30/24 13:54 97.8 F 66 28 H 135/74 95 08/30/24 13:00 64 17 135/56 95 08/30/24 12:45 63 18 127/62 98 08/30/24 12:30 65 16 132/72 99 08/30/24 12:15 97.4 F L 69 12 133/69 98 08/30/24 09:54 97.6 F 62 16 160/69 97 Intake and Output 08/30/24 08/30/24 08/30/24 06:59 14:59 22:59 Intake Total 600 Output Total 20 Balance 580 Intake: IV 600 Output: Estimated Blood Loss 20 Other: # Voids 1 Weight 126 kg Head normocephalic Neck supple Lungs clear to auscultation bilaterally no wheezing or crackles Heart regular rate and rhythm S1-S2, no rub or gallop Abdomen is soft nontender nondistended positive bowel sounds no hepatosplenomegaly Extremities no edema Neuro alert and orientated to 3 Results CBC & Chem 7: 08/30/24 10:18 08/30/24 11:03 Labs: Abnormal Lab Results - Last 24 Hours (Table) 08/30/24 08/30/24 08/30/24 Range/Units 10:17 10:18 11:03 MCH 32.3 H (27.0-32.0) pg Glucose 207 H (74-99) mg/dL POC Glucose (mg/dL) 222 H (70-110) mg/dL 08/30/24 08/30/24 Range/Units 12:29 16:17 MCH (27.0-32.0) pg Glucose (74-99) mg/dL POC Glucose (mg/dL) 169 H 159 H (70-110) mg/dL Assessment and Plan Assessment: Status post pilonidal cyst removal History of diabetes mellitus type 1 History of essential hypertension History of hyperlipidemia History of coronary artery disease History of autonomic dysfunction Thank you for this consultation we will continue to follow patient closely throughout stay Home meds resumed a.m. labs ordered Time with Patient: Greater than 30 (Greater than 60% of the total time spent in counseling and coordination of care)
--- NOTE | 2024-08-31 10:56 | P.PN ---
Subjective Progress Note Date: 08/31/24 Yury Brewer, is a 74-year-old male who presented for an elective pilonidal cyst removal with Dr. Goodrich. Patient has a past medical history of previous Pilonidal disease with previous cyst removal in his 20s but has had increased drainage and pain over the last several years requiring intervention. Ad ditional medical history includes diabetes mellitus type 1,, CVA, dementia, diabetes, GERD, hyperlipidemia, hypertension, osteoarthritis, prostate disorder, syncope, ex-smoker. At this time patient is resting comfortably in bed Home meds have been resumed. Patient denies chest pain or shortness of breath. Patient denies nausea vomiting or diarrhea. Patient denies any urinary burning or frequency. Current vital signs temp 97.4, heart 69, respiratory 12, blood pressure 133/69 with pulse ox of 95% on room air On 08/31/2024 patient is alert and oriented x 3. Patient required extra insulin yesterday to elevated blood sugars. Blood sugars have improved today. Patient denies chest pain or shortness of breath. Patient denies nausea vomiting or diarrhea. Patient denies any nausea vomiting or diarrhea. Current vital signs temp 97.9, heart rate 65, respiratory rate 17, blood pressure 139/75 with pulse ox of 96% on room air Objective - Vital Signs Vital signs: Vital Signs Temp 97.9 F 08/31/24 07:00 Pulse 59 L 08/31/24 07:00 Resp 20 08/31/24 07:00 BP 139/75 08/31/24 07:00 Pulse Ox 96 08/31/24 07:00 FiO2 Intake & Output 08/30/24 08/31/24 08/31/24 18:59 06:59 18:59 Intake Total 600 480 Output Total 20 750 Balance 580 -750 480 Weight 126 kg Intake: IV 600 Oral 480 Output: Urine 750 Estimated Blood Loss 20 Other: Voiding Method Toilet # Voids 1 - Exam Head normocephalic Neck supple Lungs clear to auscultation bilaterally no wheezing or crackles Heart regular rate and rhythm S1-S2, no rub or gallop Abdomen is soft nontender nondistended positive bowel sounds no hepatosplenome iman Extremities no edema Neuro alert and orientated to 3 - Labs CBC & Chem 7: 08/30/24 10:18 08/30/24 11:03 Labs: Abnormal Lab Results - Last 24 Hours (Table) 08/30/24 08/30/24 08/30/24 Range/Units 11:03 12:29 16:17 Glucose 207 H (74-99) mg/dL POC Glucose (mg/dL) 169 H 159 H (70-110) mg/dL Hemoglobin A1c (<=6.0) % 08/30/24 08/31/24 08/31/24 Range/Units 20:20 00:05 07:00 Glucose (74-99) mg/dL POC Glucose (mg/dL) 593 H* 392 H 198 H (70-110) mg/dL Hemoglobin A1c (<=6.0) % 08/31/24 Range/Units 07:00 Glucose (74-99) mg/dL POC Glucose (mg/dL) (70-110) mg/dL Hemoglobin A1c 8.6 H (<=6.0) % Microbiology - Last 24 Hours (Table) 08/30/24 12:02 Gram Stain - Preliminary Cyst Wound Culture - Preliminary 08/30/24 12:10 Gram Stain - Preliminary Other - Other Wound Culture - Preliminary Assessment and Plan Assessment: Status post pilonidal cyst removal History of diabetes mellitus type 1 History of essential hypertension History of hyperlipidemia History of coronary artery disease History of autonomic dysfunction Thank you for this consultation we will continue to follow patient closely throughout stay Home meds resumed a.m. labs ordered
[2024-08-31 12:18] LABS: Glucose,Whole Blood 259 mg/dL (70-110)
[2024-08-31 12:45] VITALS: PULSE 62; RESP 16; TEMP 98
[2024-08-31 12:47] VITALS: BP 131/74
--- NOTE | 2024-08-31 14:16 | P.DS ---
Providers Expected date of discharge: 08/31/24 Attending physician: Nikunj Mcgrath Consults: 08/30/24 12:10 Consult Physician Routine Consulting Provider: Ej Gibson Consult Reason/Comments: Medical management Do you want consulting provider notified?: Yes Primary care physician: Ej Gibson Hospital Course: Discharge diagnosis 1. Recurrent pilonidal cyst Hospital course This is a 74-year-old male with recurrent pilonidal cyst. He is status post recurrent pilonidal cystectomy. Patient reports his pain is controlled. He is afebrile. He has been up and ambulating. He is tolerating diet. He is stable for discharge. Please refer to chart for any further details. Physician Swabber note has been reviewed by physician. Signing provider agrees with the documented findings, assessment, and plan of care. Patient Condition at Discharge: Stable Plan - Discharge Summary Discharge Rx Participant: No New Discharge Prescriptions: New HYDROcodone/APAP 5-325MG [[place] 5-325] 1 tab PO Q4HR PRN 3 Days #18 tab PRN Reason: Pain Continue Aspirin 81 mg PO DAILY rOPINIRole HCL [Requip] 0.5 mg PO HS 30 Days #30 tablet Tamsulosin [Flomax] 0.4 mg PO QAM Cetirizine HCl [Zyrtec] 10 mg PO DAILY INSULIN ASPART (NovoLOG) [NovoLOG (formulary)] See Protocol SQ ACHS #1 pen Clopidogrel [Plavix] 75 mg PO DAILY Ergocalciferol [Vitamin D2 (1250 Mcg = 34330 Iu)] 1,250 mcg PO Q7D Dapagliflozin Propanediol [Farxiga] 10 mg PO DAILY Memantine HCl 5 mg PO BID Insulin Glargine (Lantus) [Lantus Vial] 75 unit SQ QAM Docusate [Colace] 300 mg PO DAILY Atorvastatin [Lipitor] 80 mg PO HS 30 Days #30 tab Metoprolol Tartrate [Lopressor] 12.5 mg PO BID 30 Days #60 tab Discharge Medication List Aspirin 81 mg PO DAILY 10/16/13 [History] rOPINIRole HCL [Requip] 0.5 mg PO HS 30 Days #30 tablet 05/09/18 [Rx] Tamsulosin [Flomax] 0.4 mg PO QAM 11/09/18 [History] Cetirizine HCl [Zyrtec] 10 mg PO DAILY 08/21/22 [History] Docusate [Colace] 300 mg PO DAILY 10/09/22 [History] INSULIN ASPART (NovoLOG) [NovoLOG (formulary)] See Protocol SQ ACHS #1 pen 01/31/23 [Rx] Clopidogrel [Plavix] 75 mg PO DAILY 08/06/23 [History] Ergocalciferol [Vitamin D2 (1250 Mcg = 02018 Iu)] 1,250 mcg PO Q7D 08/06/23 [History] Atorvastatin [Lipitor] 80 mg PO HS 30 Days #30 tab 08/07/23 [Rx] Metoprolol Tartrate [Lopressor] 12.5 mg PO BID 30 Days #60 tab 08/07/23 [Rx] Dapagliflozin Propanediol [Farxiga] 10 mg PO DAILY 08/27/24 [History] Insulin Glargine (Lantus) [Lantus Vial] 75 unit SQ QAM 08/27/24 [History] Memantine HCl 5 mg PO BID 08/27/24 [History] HYDROcodone/APAP 5-325MG [[place] 5-325] 1 tab PO Q4HR PRN 3 Days #18 tab 08/31/24 [Rx] Follow up Appointment(s)/Referral(s): Nikunj Mcgrath MD [Medical Doctor] - 09/09/24 8:40 am [facility] [NON-STAFF] - 1 Week Patient Instructions/Handouts: Hydrocodone/Acetaminophen (By mouth), Pilonidal Cyst (ED), Acute Wound Care (DC), Wound Healing and Your Diet (DC) Activity/Diet/Wound Care/Special Instructions: No driving while taking [place] No lifting over 10 pounds Shower daily. No soaking or tub baths for 2 weeks Very light activity until you are reevaluated at your follow up appointment with your surgeon Wound Care: Patient to shower daily. After showering remove and replace Curlex roll with lightly moistened saline wet-to-dry. Sterile outer dressings including ABD. Discharge Disposition: HOME SELF-CARE
== END 2024-08-31 15:10 | disposition home or self-care (01) ==
LOC: OR 09:32 → 5NMEDONC 12:03 → OR 08-31 15:10
PROVIDERS: ATTEND Surgery
DX: L05.91 Pilonidal cyst without abscess (principal); E10.22 Type 1 diabetes mellitus with diabetic chronic kidney disease; E10.43 Type 1 diabetes mellitus with diabetic autonomic (poly)neuropathy; F03.90 Unspecified dementia, unspecified severity, without behavioral disturbance, psychotic disturbance, mood disturbance, and anxiety; E78.5 Hyperlipidemia, unspecified; G25.81 Restless legs syndrome; G89.29 Other chronic pain; I12.9 Hypertensive chronic kidney disease with stage 1 through stage 4 chronic kidney disease, or unspecified chronic kidney disease; I25.10 Atherosclerotic heart disease of native coronary artery without angina pectoris; M19.90 Unspecified osteoarthritis, unspecified site; N18.9 Chronic kidney disease, unspecified; N40.0 Benign prostatic hyperplasia without lower urinary tract symptoms; Z79.02 Long term (current) use of antithrombotics/antiplatelets; Z79.4 Long term (current) use of insulin; Z79.82 Long term (current) use of aspirin; Z79.84 Long term (current) use of oral hypoglycemic drugs; Z86.73 Personal history of transient ischemic attack (TIA), and cerebral infarction without residual deficits; Z87.891 Personal history of nicotine dependence; Z90.89 Acquired absence of other organs
CPT/HCPCS: 88304; 80048; 85025; 87070; 87205; 87075; 83036; 11770; J1644 ×2; J1100; J0690; J2405; J1885 ×2; J0665

== ENCOUNTER 2024-09-18 13:40 | Emergency (ER) | payer MEDICARE, OTHER ==
[2024-09-18 13:47] VITALS: TEMP 98.5
[2024-09-18 15:10] LABS: Basophils # (A) 0.02 10*3/uL (0.00-0.10); Basophils % (A) 0.3 %; Eosinophils # (A) 0.12 10*3/uL (0.04-0.35); Eosinophils % (A) 1.6 %; HCT 45.7 % (39.6-50.0); HGB 15.3 g/dL (13.0-17.0); Lymphocytes # (A) 2.55 10*3/uL (0.90-5.00); Lymphocytes % (A) 33.2 %; MCH 31.9 pg (27.0-32.0); MCHC 33.5 g/dL (32.0-37.0); MCV 95.2 fL (80.0-97.0); Mean Platelet Volume 11.3 fL (9.5-12.2); Monocytes # (A) 0.46 10*3/uL (0.20-1.00); Neutrophils # (A) 4.51 10*3/uL (1.80-7.70); Neutrophils % (A) 58.8 %; Platelet Count 255 10*3/uL (140-440); RDW 13.1 % (11.5-14.5); WBC 7.67 10*3/uL (4.50-10.00)
[2024-09-18] MEDS: SODIUM CHLORIDE 0.9% 500 ML 500 ML IV STA (15:33)
--- NOTE | 2024-09-18 15:36 | XR ---
EXAMINATION TYPE: XR wrist complete LT DATE OF EXAM: 09/18/2024 3:10 PM COMPARISON: None CLINICAL INDICATION: Male, 74 years old with history of syncope; PHH, pain TECHNIQUE: XR wrist complete LT; examined in the Frontal, navicular, lateral, and oblique. FINDINGS: No acute osseous pathology, joint dislocation, or joint effusion. No evidence of any soft tissue swelling is seen. . Degeneration changes worse at the first digit metacarpophalangeal joint terri int space narrowing osteophyte formation. No radiopaque foreign body. Atherosclerosis of the arterial vasculature. IMPRESSION: No acute osseous pathology. [facility], , 09/18/2024 3:34 PM
--- NOTE | 2024-09-18 15:37 | XR ---
EXAMINATION TYPE: XR chest 2V DATE OF EXAM: 09/18/2024 3:10 PM COMPARISON: Chest radiographs from 08/06/2023. CLINICAL INDICATION: Male, 74 years old with history of syncope; [facility] TECHNIQUE: XR chest 2V Frontal and lateral views of the chest. FINDINGS: Lungs/Pleura: There is no evidence of pleural effusion, focal consolidation, or pneumothorax. Pulmonary vascularity: Unremarkable. Heart/mediastinum: Cardiomediastinal silhouette is unremarkable. Musculoskeletal: No acute osseous pathology. IMPRESSION: No acute cardiopulmonary disease/process. [facility], , 09/18/2024 3:35 PM
--- NOTE | 2024-09-18 15:39 | CT ---
EXAMINATION TYPE: CT brain cspine wo con DATE OF EXAM: 09/18/2024 3:12 PM COMPARISON: 02/07/2023. CLINICAL INDICATION: Male, 74 years old with history of syncope, unsure if hit head, on plavix; FALL ON THINNERS, pain TECHNIQUE: Brain: Multiple axial CT images of the brain were obtained without IV contrast. Cspine: Axial CT images from the skull base to the inferior aspect of T2 we obtained without intraven ous contrast. Coronal and sagittal reformatted images were also reviewed. . CT DLP: 1461.7 mGycm, Automated exposure control for dose reduction was used. FINDINGS: Brain: Extra-axial spaces: No abnormal extra-axial fluid collections. Ventricular system: Dilatation in proportion to cerebral atrophy. Cerebral parenchyma: No acute intraparenchymal hemorrhage or mass effect. The maria-white junction is well differentiated. Scattered hypoattenuating areas are seen within the white matter. Cerebellum: Unremarkable. Mass effect: No evidence of midline shift. Intracranial vasculature: Atherosclerotic calcifications of the intracranial vessels. Soft tissues: Normal. Calvarium/osseous structures: No depressed skull fracture. Paranasal sinuses and mastoid air cells: Clear. Visualized orbits: Orbital contents are intact. Cervical spine: Fracture: None. Osseous structures: Multilevel degenerative disc disease changes with endplate spurring and disc oste ophyte complex's. Vertebral alignment: Within normal limits. Spinal canal/Neural Foramina: No evidence of significant spinal canal narrowing. No evidence for sign ificant neural foraminal stenosis. Neck soft tissues: Prevertebral soft tissues are within normal limits. Other: The airway is patent. The lung apices are clear. IMPRESSION: 1. No acute intracranial process. 2. Nonspecific white matter changes, likely secondary to chronic small vessel ischemic disease. 3. No evidence of cervical spine fracture. 4. Mild multilevel degenerative disc disease. [facility], , 09/18/2024 3:37 PM
[2024-09-18 15:40] LABS: ALT 31 U/L (4-49); African American GFR (CKD) >90 (>60 ml/min/1.73 sqM); Albumin 4.3 g/dL (3.5-5.0); Anion Gap 11 mmol/L; Blood Urea Nitrogen 18 mg/dL (9-20); Calcium 9.2 mg/dL (8.4-10.2); Carbon Dioxide 23 mmol/L (22-30); Chloride 106 mmol/L (98-107); Glucose 153 mg/dL (74-99); Non-African American GFR(CKD) 82 (>60 ml/min/1.73 sqM); Sodium 140 mmol/L (137-145); Total Bilirubin 0.7 mg/dL (0.2-1.3); Total Protein 8.1 g/dL (6.3-8.2)
[2024-09-18 15:41] LABS: AST 53 U/L (17-59); Potassium 4.2 mmol/L (3.5-5.1)
[2024-09-18 15:42] LABS: Alkaline Phosphatase 61 U/L (38-126)
[2024-09-18 16:00] LABS: Partial Thromboplastin Time 22.3 sec (22.0-30.0); Prothrombin Time 11.3 sec (10.0-12.5)
[2024-09-18 16:12] VITALS: RESP 18
--- NOTE | 2024-09-18 17:42 | ED ---
General Adult HPI - General Chief complaint: Syncope Stated complaint: fall, L hand injury Time Seen by Provider: 09/18/24 13:50 Source: patient Mode of arrival: ambulatory Limitations: no limitations - History of Present Illness Initial comments: 74-year-old male with past medical history of coronary artery disease, CVA, dementia, diabetes who presents to the emergency department after he had a syncopal episode. Patient reports that he was getting up last night to urinate and the next thing he remembered he was on the floor. His did find him after a short period of time. He is complaining of left wrist pain, lower back pain which is chronic for him. Patient is unsure if he hit his head. He does take Plavix. He denies any headaches or visual changes. No confusion. No speech issues. Patient has had multiple episodes of syncope in the past for which she has had a fairly significant workup. No fevers. No chest pain or shortness of breath. No other alleviating, precipitating or modifying factors - Related Data Home Medications Medication Instructions Recorded Confirmed Aspirin 81 mg PO DAILY 10/16/13 08/27/24 Tamsulosin [Flomax] 0.4 mg PO QAM 11/09/18 08/30/24 Cetirizine HCl [Zyrtec] 10 mg PO DAILY 08/21/22 08/30/24 Docusate [Colace] 300 mg PO DAILY 10/09/22 08/30/24 Clopidogrel [Plavix] 75 mg PO DAILY 08/06/23 08/27/24 Ergocalciferol [Vitamin D2 (1250 1,250 mcg PO Q7D 08/06/23 08/27/24 Mcg = 26108 Iu)] Dapagliflozin Propanediol [Farxiga] 10 mg PO DAILY 08/27/24 08/27/24 Insulin Glargine (Lantus) [Lantus 75 unit SQ QAM 08/27/24 08/30/24 Vial] Memantine HCl 5 mg PO BID 08/27/24 08/30/24 Previous Rx's Medication Instructions Recorded rOPINIRole HCL [Requip] 0.5 mg PO HS 30 Days #30 tablet 05/09/18 INSULIN ASPART (NovoLOG) [NovoLOG See Protocol SQ ACHS #1 pen 01/31/23 (formulary)] Atorvastatin [Lipitor] 80 mg PO HS 30 Days #30 tab 08/07/23 Metoprolol Tartrate [Lopressor] 12.5 mg PO BID 30 Days #60 tab 08/07/23 HYDROcodone/APAP 5-325MG [[place] 1 tab PO Q4HR PRN 3 Days #18 tab 08/31/24 5-325] HYDROcodone/APAP 7.5-325MG [[place] 1 tab PO Q4H PRN 3 Days #18 tab 09/06/24 7.5-325] HYDROcodone/APAP 7.5-325MG [[place] 1 tab PO Q4H PRN 3 Days #18 tab 09/10/24 7.5-325] Allergies Allergy/AdvReac Type Severity Reaction Status Date / Time No Known Allergies Allergy Verified 08/30/24 09:59 Review of Systems ROS Statement: Those systems with pertinent positive or pertinent negative responses have been documented in the HPI. ROS Other: All systems not noted in ROS Statement are negative. Past Medical History Past Medical History: Blood Disorder, Coronary Artery Disease (CAD), CVA/TIA, Dementia, Diabetes Mellitus, Eye Disorder, GERD/Reflux, Hearing Disorder / Deafness, Hyperlipidemia, Hypertension, Neurologic Disorder, Osteoarthritis (OA), Prostate Disorder, Renal Disease, Syncope Additional Past Medical History / Comment(s): spouse states "able to sign consents", pilonidal cyst, recent yeast infection to penis, IDDM type 1, bilateral legs/feet/arms and hand neuropathy, chronic renal disease, difficulty swallowing, RLS, factor V Leiden, early dementia, BPH, bilateral tinnitis, R eye retinal bleeds x2, chronic low back pain with bilateral sciatica which is worse on the right side, bilateral shoulder and cervical pain, possible TIAs (01/13), History of Any Multi-Drug Resistant Organisms: None Reported Past Surgical History: Adenoidectomy, Back Surgery, Heart Catheterization, Orthopedic Surgery, Tonsillectomy Additional Past Surgical History / Comment(s): Lumbar laminectomy, R knee cartildge surgery, bilateral carpal tunnel released, sen wrist dequevain surgery, R rotator cuff repair, L foot pins and plates, EGD, colonoscopy, R eye laser eye surgery for retinal bleeds, bilateral cataract removals/lens implants Past Anesthesia/Blood Transfusion Reactions: Motion Sickness Additional Past Anesthesia/Blood Transfusion Reaction / Comment(s): no hx blood transfusion Past Psychological History: Depression Smoking Status: Former smoker Past Alcohol Use History: None Reported Past Drug Use History: None Reported - Past Family History Brother(s) Family Medical History: Blood Disorder, Deep Vein Thrombosis (DVT) Mother Additional Family Medical History / Comment(s): Mother had palsey Father Family Medical History: COPD, Myocardial Infarction ([place]) Additional Family Medical History / Comment(s): Father of COPD/[place] at the age of 72 yrs. General Exam Limitations: no limitations General appearance: alert, in no apparent distress Head exam: Present: atraumatic, normocephalic, normal inspection Eye exam: Present: normal appearance, PERRL, EOMI. Absent: scleral icterus, conjunctival injection, periorbital swelling ENT exam: Present: normal exam, mucous membranes moist Neck exam: Present: normal inspection. Absent: tenderness, meningismus, lympha denopathy Respiratory exam: Present: normal lung sounds bilaterally. Absent: respiratory distress, wheezes, rales, rhonchi, stridor Cardiovascular Exam: Present: regular rate, normal rhythm, normal heart sounds. Absent: systolic murmur, diastolic murmur, rubs, gallop, clicks GI/Abdominal exam: Present: soft, normal bowel sounds. Absent: distended, tenderness, guarding, rebound, rigid Extremities exam: Present: full ROM, tenderness (To palpation of the left wrist near snuffbox), normal capillary refill. Absent: pedal edema, joint swelling, calf tenderness Back exam: Present: normal inspection Neurological exam: Present: alert, oriented X3, CN II-XII intact Psychiatric exam: Present: normal affect, normal mood Skin exam: Present: warm, dry, intact, normal color. Absent: rash Course Vital Signs 09/18/24 09/18/24 09/18/24 13:44 16:04 17:43 Temperature 98.5 F Pulse Rate 72 60 61 Respiratory 16 18 18 Rate Blood Pressure 125/50 166/63 160/94 O2 Sat by Pulse 99 96 98 Oximetry Procedures - Orthopedic Splinting/Casting Injury #1 Side: left Upper Extremity Injury Location: wrist Upper Extremity Immobilizer: thumb spica, Leo wrap, synthetic pre-padded splint Medical Decision Making - Medical Decision Making Was pt. sent in by a medical professional or institution (, PA, O[employer] TRUCK DRIVER, urgent care, hospital, or penitentiary...) When possible be specific @ -No Did you speak to anyone other than the patient for history (EMS, parent, family, police, friend...)? What history was obtained from this source @ -Spoke with the for history Did you review nursing and triage notes (agree or disagree)? Why? @ -I reviewed and agree with nursing and triage notes Were old charts reviewed (outside hosp., previous admission, EMS record, old EKG, old radiological studies, urgent care reports/EKG's, penitentiary records)? Report findings @ -No old charts were reviewed Differential Diagnosis (chest pain, altered mental status, abdominal pain women, abdominal pain men, vaginal bleeding, weakness, fever, dyspnea, syncope, headache, dizziness, GI bleed, back pain, seizure, CVA, palpatations, mental health, musculoskeletal)? @ -Differential Syncope: Valvular disease, hypertrophic cardiomyopathy, pulmonary embolism, tamponade, ta chycardia, bradycardia, [place], hypovolemia, hemorrhage, dissection, anemia, intracranial hemorrhage, seizure, hypoglycemia, carbon monoxide poisoning, this is not meant to be an all-inclusive list. EKG interpreted by me (3pts min.). @ -Yes which demonstrates sinus rhythm with a rate of 60. FL interval 128. QRS 111. QTc of 433. No acute ST segment elevations or depressions X-rays interpreted by me (1pt min.). @ -Yes which demonstrates no acute process CT interpreted by me (1pt min.). @ -Yes which demonstrates no acute process U/S interpreted by me (1pt. min.). @ -None done What testing was considered but not performed or refused? (CT, X-rays, U/S, labs)? Why? @ -None What meds were considered but not given or refused? Why? @ -None Did you discuss the management of the patient with other professionals (professionals i.e. Dr., PA, [employer] TR[employer] DRIVER, lab, RT, psych nurse, home health care social worker, fishing accessories maker, teacher, chief operations officer, director case management)? Give summary @ -No Was smoking cessation discussed for >3mins.? @ -No Was critical care preformed (if so, how long)? @ -No Were there social determinants of health that impacted care today? How? (Homelessness, low income, unemployed, alcoholism, drug addiction, transportation, low edu. Level, literacy, decrease access to med. care, fpc, rehab)? @ -No Was there de-escalation of care discussed even if they declined (Discuss DNR or withdrawal of care, Hospice)? DNR status @ -No What co-morbidities impacted this encounter? (DM, HTN, Smoking, COPD, CAD, Ca ncer, CVA, ARF, Chemo, Hep., AIDS, mental health diagnosis, sleep apnea, morbid obesity)? @ -CVA, hypertension Was patient admitted / discharged? Hospital course, mention meds given and route, prescriptions, significant lab abnormalities, going to OR and other pertinent info. @ -Upon arrival patient seen and evaluated in room 8. Thorough history and physical exam was performed. He is placed on continuous pulse ox and cardiac monitoring. Laboratory studies are conducted. He does go for chest x-ray, wrist x-ray and a CT of his head and cervical spine as he is unsure if he hit his head. Chest x-ray demonstrates no acute process. Wrist x-ray demonstrates no acute process. CT of the head demonstrates no acute injury. Results are discussed with the patient. I did discuss admission for his syncope however patient states that this has happened to him several times and he already has had significant workup. Patient informed that he cannot drive. states that he does not drive anyways. He is placed in a thumb spica splint as I am concerned for scaphoid injury. Patient will be discharged home. Instructed to follow-up with orthopedics for reevaluation return for any new or worsening symptoms. Patient agreeable plan he was discharged home in stable condition Undiagnosed new problem with uncertain prognosis? @ -No Drug Therapy requiring intensive monitoring for toxicity (Heparin, Nitro, Insulin, Cardizem)? @ -No Were any procedures done? @ -No Diagnosis/symptom? @ -Acute syncope, left wrist pain Acute, or Chronic, or Acute on Chronic? @ -Acute Uncomplicated (without systemic symptoms) or Complicated (systemic symptoms)? @ -Complicated Side effects of treatment? @ -No Exacerbation, Progression, or Severe Exacerbation? @ -No Poses a threat to life or bodily function? How? (Chest pain, [place], [place], pneumonia, PE, COPD, DKA, ARF, appy, cholecystitis, CVA, Diverticulitis, Homicidal, Suicidal, threat to staff... and all critical care pts) @ -No - Lab Data Result diagrams: 09/18/24 14:50 09/18/24 14:50 Lab Results 09/18/24 09/18/24 09/18/24 Range/Units 14:50 14:50 14:50 WBC 7.67 (4.50-10.00) 10*3/uL RBC 4.80 (4.40-5.60) 10*6/uL Hgb 15.3 (13.0-17.0) g/dL Hct 45.7 (39.6-50.0) % MCV 95.2 (80.0-97.0) fL MCH 31.9 (27.0-32.0) pg MCHC 33.5 (32.0-37.0) g/dL Plt Count 255 (140-440) 10*3/uL MPV 11.3 (9.5-12.2) fL Immature Gran % (Auto) 0.1 % Neutrophils % 58.8 % Lymphocytes % 33.2 % Monocytes % 6.0 % Eosinophils % 1.6 % Basophils % 0.3 % Immature Gran # 0.01 (0.00-0.04) 10*3/uL Neutrophils # 4.51 (1.80-7.70) 10*3/uL Lymphocytes # 2.55 (0.90-5.00) 10*3/uL Monocytes # 0.46 (0.20-1.00) 10*3/uL Eosinophils # 0.12 (0.04-0.35) 10*3/uL Basophils # 0.02 (0.00-0.10) 10*3/uL PT 11.3 (10.0-12.5) sec INR 1.0 (<1.2) APTT 22.3 (22.0-30.0) sec Sodium 140 (137-145) mmol/L Potassium 4.2 (3.5-5.1) mmol/L Chloride 106 (98-107) mmol/L Carbon Dioxide 23 (22-30) mmol/L Anion Gap 11 mmol/L BUN 18 (9-20) mg/dL Creatinine 0.92 (0.66-1.25) mg/dL Est GFR (CKD-EPI)AfAm >90 (>60 ml/min/1.73 sqM) Est GFR (CKD-EPI)NonAf 82 (>60 ml/min/1.73 sqM) Glucose 153 H (74-99) mg/dL Calcium 9.2 (8.4-10.2) mg/dL Total Bilirubin 0.7 (0.2-1.3) mg/dL AST 53 (17-59) U/L ALT 31 (4-49) U/L Alkaline Phosphatase 61 (38-126) U/L Troponin I (0.000-0.034) ng/mL Total Protein 8.1 (6.3-8.2) g/dL Albumin 4.3 (3.5-5.0) g/dL 09/18/24 Range/Units 14:50 WBC (4.50-10.00) 10*3/uL RBC (4.40-5.60) 10*6/uL Hgb (13.0-17.0) g/dL Hct (39.6-50.0) % MCV (80.0-97.0) fL MCH (27.0-32.0) pg MCHC (32.0-37.0) g/dL Plt Count (140-440) 10*3/uL MPV (9.5-12.2) fL Immature Gran % (Auto) % Neutrophils % % Lymphocytes % % Monocytes % % Eosinophils % % Basophils % % Immature Gran # (0.00-0.04) 10*3/uL Neutrophils # (1.80-7.70) 10*3/uL Lymphocytes # (0.90-5.00) 10*3/uL Monocytes # (0.20-1.00) 10*3/uL Eosinophils # (0.04-0.35) 10*3/uL Basophils # (0.00-0.10) 10*3/uL PT (10.0-12.5) sec INR (<1.2) APTT (22.0-30.0) sec Sodium (137-145) mmol/L Potassium (3.5-5.1) mmol/L Chloride (98-107) mmol/L Carbon Dioxide (22-30) mmol/L Anion Gap mmol/L BUN (9-20) mg/dL Creatinine (0.66-1.25) mg/dL Est GFR (CKD-EPI)AfAm (>60 ml/min/1.73 sqM) Est GFR (CKD-EPI)NonAf (>60 ml/min/1.73 sqM) Glucose (74-99) mg/dL Calcium (8.4-10.2) mg/dL Total Bilirubin (0.2-1.3) mg/dL AST (17-59) U/L ALT (4-49) U/L Alkaline Phosphatase (38-126) U/L Troponin I <0.012 (0.000-0.034) ng/mL Total Protein (6.3-8.2) g/dL Albumin (3.5-5.0) g/dL Disposition Clinical Impression: Syncope, Wrist pain, Head injury Disposition: HOME SELF-CARE Condition: Stable Instructions (If sedation given, give patient instructions): Syncope (ED) Additional Instructions: Please wear the splint. Do not get it wet as it will fall apart. Follow-up with the orthopedic doctor to have repeat x-rays and return for any new or worsening symptoms Is patient prescribed a controlled substance at d/c from ED?: No Referrals: Ej Gibson MD [Primary Care Provider] - 1-2 days Jamari Bray MD [Medical Doctor] - 1-2 days Time of Disposition: 17:41
[2024-09-18 18:03] VITALS: BP 160/94; PULSE 61
== END 2024-09-18 18:11 | disposition home or self-care (01) ==
LOC: EC 13:40
DX: S09.90XA Unspecified injury of head, initial encounter (principal); R55 Syncope and collapse; M25.532 Pain in left wrist; I12.9 Hypertensive chronic kidney disease with stage 1 through stage 4 chronic kidney disease, or unspecified chronic kidney disease; E10.22 Type 1 diabetes mellitus with diabetic chronic kidney disease; Z87.891 Personal history of nicotine dependence; Z86.73 Personal history of transient ischemic attack (TIA), and cerebral infarction without residual deficits; X58.XXXA Exposure to other specified factors, initial encounter
CPT/HCPCS: 29125; 36415; 70450; 71046; 72125; 80053; 84484; 85025; 85610; 85730; 93005; 99285

== ENCOUNTER → 2024-09-23 | Outpatient (CLI) | payer MEDICARE, OTHER ==
--- NOTE | 2024-09-23 15:27 | XR ---
EXAMINATION TYPE: XR Hip LT and AP Pelvis DATE OF EXAM: 09/23/2024 3:16 PM INDICATION: Patient age:Male; 74 years old; Reason for study: PELVIC PAIN, FALL M25.552 HIP PAIN; PHH. pain COMPARISON: Pelvic radiograph 10/09/2022, left hip radiograph 03/06/2016 TECHNIQUE: The left hip was examined in the frontal and lateral projections and a AP pelvis. FINDINGS: No evidence of any acute osseous pathology, joint dislocation, or soft tissue swelling. Sub chondral sclerosis involving both hips with joint space narrowing and spurring. Multilevel degenerati ve changes of the lumbar spine with fixation hardware demonstrated. Vascular sclerosis. IMPRESSION: 1. No acute osseous pathology. 2. Mild to moderate osteoarthritic changes of both hips. [facility], , 09/23/2024 3:24 PM
== END | disposition home or self-care (01) ==
LOC: RADXRMAIN 14:33
PROVIDERS: ATTEND Internal Medicine
DX: M16.0 Bilateral primary osteoarthritis of hip (principal)
CPT/HCPCS: 73502

== ENCOUNTER → 2024-09-27 | Outpatient (CLI) | payer MEDICARE, OTHER ==
--- NOTE | 2024-09-27 11:03 | CT ---
EXAMINATION TYPE: CT wrist LT wo con DATE OF EXAM: 09/27/2024 10:44 AM COMPARISON: . Extremity radiograph CLINICAL INDICATION: Male, 74 years old with history of M25.532 PAIN LEFT WRIST W19.XXXA FALL; PH[facility], pain from fall TECHNIQUE: Axial images were obtained of the CT wrist LT wo con, Additional coronal and sagittal refo rmatted images and soft tissue and bone window were obtained for review. 3-D reconstruction was creat ed on a separate workstation. Contrast used: mL of , (None if empty) Oral contrast used: (None if empty) CT DLP: 154.6 mGycm, Automated exposure control for dose reduction was used. FINDINGS: Limited evaluation due to patient positioning. There is diffuse osseous demineralization pr esent. Limited evaluation of fracture. The scaphoid may demonstrate mild subtle cortical buckling. Th is could be alternatively artifact. However patient's normal anatomy. The radius and ulna appear inta ct. Within the limitations exam the metacarpals are intact. No evidence or dislocation. There is dege neration changes of the carpometacarpal joint of the first digit with joint space and osteophyte form ation. IMPRESSION: Limited evaluation due to patient positioning. There is diffuse osseous demineralization. These findi ngs limit evaluation for fracture. There may be subtle scaphoid cortical buckling which could just be artifactual. Correlate with tenderness at the scaphoid. Consider MRI for further for some occult damaris p edema in the setting of a nondisplaced fracture. [facility], , 09/27/2024 11:00 AM
== END | disposition home or self-care (01) ==
LOC: RADCTMAIN 09:57
PROVIDERS: ATTEND Internal Medicine
DX: S69.92XA Unspecified injury of left wrist, hand and finger(s), initial encounter (principal); W19.XXXA Unspecified fall, initial encounter

== ENCOUNTER 2024-10-05 20:37 | Inpatient (IN) | payer MEDICARE, OTHER ==
--- NOTE | 2024-10-05 20:57 | ED ---
General Adult HPI - General Stated complaint: Fall Time Seen by Provider: 10/05/24 20:44 Source: patient, EMS, RN notes reviewed Mode of arrival: EMS Limitations: physical limitation - History of Present Illness Initial comments: 74-year-old male presents to the emergency department for evaluation of left shoulder pain and neck pain following a fall. Patient states that he took a fall in his bathroom. He states that he got lightheaded prior to the fall. He is on blood thinners. He is not sure if he hit his head. Did not lose consciousness. Patient reporting pain in the left shoulder. Denies any numbness or tingling. - Related Data Home Medications Medication Instructions Recorded Confirmed Tamsulosin [Flomax] 0.4 mg PO DAILY 11/09/18 10/06/24 Clopidogrel [Plavix] 75 mg PO DAILY 08/06/23 10/06/24 Ergocalciferol [Vitamin D2 (1250 1,250 mcg PO WEEKLY 08/06/23 10/06/24 Mcg = 97002 Iu)] Memantine HCl 5 mg PO BID 08/27/24 10/06/24 HYDROcodone/APAP 10-325MG [[place] 1 tab PO Q8H PRN 10/06/24 10/06/24 10-325] Insulin Glargine-Yfgn [Semglee 70 unit SQ DAILY 10/06/24 10/06/24 (Yfgn) Pen] Metoprolol Tartrate [Lopressor] 25 mg PO BID 10/06/24 10/06/24 Pantoprazole Sodium [Protonix] 40 mg PO BID 10/06/24 10/06/24 Previous Rx's Medication Instructions Recorded Atorvastatin [Lipitor] 80 mg PO HS 30 Days #30 tab 08/07/23 Allergies Allergy/AdvReac Type Severity Reaction Status Date / Time No Known Allergies Allergy Verified 10/06/24 10:11 Review of Systems ROS Statement: Those systems with pertinent positive or pertinent negative responses have been documented in the HPI. ROS Other: All systems not noted in ROS Statement are negative. Past Medical History Past Medical History: Blood Disorder, Coronary Artery Disease (CAD), CVA/TIA, Dementia, Diabetes Mellitus, Eye Disorder, GERD/Reflux, Hearing Disorder / Deafness, Hyperlipidemia, Hypertension, Neurologic Disorder, Osteoarthritis (OA), Prostate Disorder, Renal Disease, Syncope Additional Past Medical History / Comment(s): spouse states "able to sign consents", pilonidal cyst, recent yeast infection to penis, IDDM type 1, bilateral legs/feet/arms and hand neuropathy, chronic renal disease, difficulty swallowing, RLS, factor V Leiden, early dementia, BPH, bilateral tinnitis, R eye retinal bleeds x2, chronic low back pain with bilateral sciatica which is worse on the right side, bilateral shoulder and cervical pain, possible TIAs (), History of Any Multi-Drug Resistant Organisms: None Reported Past Surgical History: Adenoidectomy, Back Surgery, Heart Catheterization, Orthopedic Surgery, Tonsillectomy Additional Past Surgical History / Comment(s): Lumbar laminectomy, R knee cartildge surgery, bilateral carpal tunnel released, sen wrist dequevain s urgery, R rotator cuff repair, L foot pins and plates, EGD, colonoscopy, R eye laser eye surgery for retinal bleeds, bilateral cataract removals/lens implants Past Anesthesia/Blood Transfusion Reactions: Motion Sickness Additional Past Anesthesia/Blood Transfusion Reaction / Comment(s): no hx blood transfusion Past Psychological History: Depression Smoking Status: Former smoker Past Alcohol Use History: None Reported Past Drug Use History: None Reported - Past Family History Brother(s) Family Medical History: Blood Disorder, Deep Vein Thrombosis (DVT) Mother Additional Family Medical History / Comment(s): Mother had palsey Father Family Medical History: COPD, Myocardial Infarction ([place]) Additional Family Medical History / Comment(s): Father of COPD/[place] at the age of 72 yrs. General Exam Limitations: no limitations General appearance: alert, in distress (Due to pain) Head exam: Present: atraumatic, normocephalic, normal inspection Eye exam: Present: normal appearance, PERRL, EOMI. Absent: scleral icterus, conjunctival injection, periorbital swelling ENT exam: Present: normal exam, mucous membranes moist Neck exam: Present: normal inspection. Absent: tenderness, meningismus, lymphadenopathy Respiratory exam: Present: normal lung sounds bilaterally. Absent: respiratory distress, wheezes, rales, rhonchi, stridor Cardiovascular Exam: Present: regular rate, normal rhythm, normal heart sounds. Absent: systolic murmur, diastolic murmur, rubs, gallop, clicks GI/Abdominal exam: Present: soft. Absent: distended, tenderness, guarding, rebound, rigid Extremities exam: Present: tenderness, normal capillary refill. Absent: full ROM (Decreased range of motion of the left shoulder joint), pedal edema, joint swelling, calf tenderness Neurological exam: Present: alert, oriented X3, CN II-XII intact Psychiatric exam: Present: normal affect, normal mood Skin exam: Present: warm, dry, intact, normal color. Absent: rash Course Vital Signs 10/05/24 10/05/24 10/06/24 21:04 22:41 00:30 Temperature 98.4 F 98.2 F Pulse Rate 68 74 89 Respiratory 16 11 L 18 Rate Blood Pressure 145/81 171/88 176/73 O2 Sat by Pulse 99 97 96 Oximetry Medical Decision Making - Medical Decision Making Was pt. sent in by a medical professional or institution (, PA, ASSEMBLER CHASSIS, urgent care, hospital, or senior care...) When possible be specific @ -No Did you speak to anyone other than the patient for history (EMS, parent, family, police, friend...)? What history was obtained from this source @ -EMS provided some history as patient, the patient's also provided some history of his patient Did you review nursing and triage notes (agree or disagree)? Why? @ -I reviewed and agree with nursing and triage notes Were old charts reviewed (outside hosp., previous admission, EMS record, old EKG, old radiological studies, urgent care reports/EKG's, senior care records)? Report findings @ -No old charts were reviewed Differential Diagnosis (chest pain, altered mental status, abdominal pain women, abdominal pain men, vaginal bleeding, weakness, fever, dyspnea, syncope, headache, dizziness, GI bleed, back pain, seizure, CVA, palpatations, mental health, musculoskeletal)? @ -Differential Dizziness: Benign paroxysmal positional Vertigo, Meniere's disease, otitis media, acoustic neuroma, vertebrobasilar insufficiency, cerebellar stroke, encephalitis, hypovolemic, arrhythmia, coronary artery syndrome, anemia, this is not meant to be an all-inclusive list Differential Musculoskeletal Muscular strain, contusion, ligament sprain, fracture, arthritis, septic arthritis, bursitis, cellulitis, muscle spasm, nerve compression, DVT, arterial occlusion, herpes zoster, electrolyte abnormality, tumor.... This is not meant to be in all inclusive list EKG interpreted by me (3pts min.). @ -EKG@2046 shows sinus rhythm rate 73, ND 163, QRS 99, QT/QTc 233718 X-rays interpreted by me (1pt min.). @ -Chest x-ray reveals no acute cardiopulmonary process, distal clavicle fracture on the left which is minimally displaced, pelvic x-ray reveals no acute process CT interpreted by me (1pt min.). @ -CT of the brain and C-spine reveal no acute intracranial process, no acute C-spine fracture or traumatic malalignment U/S interpreted by me (1pt. min.). @ -None done What testing was considered but not performed or refused? (CT, X-rays, U/S, labs)? Why? @ -None What meds were considered but not given or refused? Why? @ -None Did you discuss the management of the patient with other professionals (professionals i.e. , PA, ASSEM[employer], lab, RT, psych nurse, social work lecturer, tissue technologist, teacher, branch officer, returned case inspector)? Give summary @ -I discussed the case with Dr. Roque who is accepting of the admission Was smoking cessation discussed for >3mins.? @ -No Was critical care preformed (if so, how long)? @ -No Were there social determinants of health that impacted care today? How? (Homelessness, low income, unemployed, alcoholism, drug addiction, transportation, low edu. Level, literacy, decrease access to med. care, care home, rehab)? @ -No Was there de-escalation of care discussed even if they declined (Discuss DNR or withdrawal of care, Hospice)? DNR status @ -No What co-morbidities impacted this encounter? (DM, HTN, Smoking, COPD, CAD, Cancer, CVA, ARF, Chemo, Hep., AIDS, mental health diagnosis, sleep apnea, morbid obesity)? @ -None Was patient admitted / discharged? Hospital course, mention meds given and route, prescriptions, significant lab abnormalities, going to OR and other pertinent info. @ -Admitted. Patient presented emergency department for evaluation of left shoulder pain following a fall. Patient reports feeling lightheaded prior to this. Laboratory studies obtainedRevealing no significant leukocytosis, hemoglobin 14.7; CMP reveals sodium 134, potassium 5.3 patient was given fluid hydration in the emergency department. Elevated blood glucose at 412. Patient had a negative troponin. UA shows 4+ glucose, 2+ ketones with no evidence of infectious process. X-ray of the left shoulder reveals a distal clavicle fracture. CT of the brain and C-spine reveals no evidence of acute intracranial process. Patient was placed in a sling. Patient admitted to the hospital for weakness with orthopedic and medical consultation. Case discussed with Dr. Roque who is accepting of the admission. Case discussed with Dr. Chavez Undiagnosed new problem with uncertain prognosis? @ -No Drug Therapy requiring intensive monitoring for toxicity (Heparin, Nitro, Insulin, Cardizem)? @ -No Were any procedures done? @ -No Diagnosis/symptom? @ -clavicle fracture, failure to thrive Acute, or Chronic, or Acute on Chronic? @ -acute Uncomplicated (without systemic symptoms) or Complicated (systemic symptoms)? @ -uncomplicated Side effects of treatment? @ -No Exacerbation, Progression, or Severe Exacerbation? @ -No Poses a threat to life or bodily function? How? (Chest pain, [place], [place], pneumonia, PE, COPD, DKA, ARF, appy, cholecystitis, CVA, Diverticulitis, Homicidal, Suicidal, threat to staff... and all critical care pts) @ -No - Lab Data Result diagrams: 10/09/24 02:48 10/09/24 02:48 Lab Results 10/05/24 10/05/24 10/05/24 Range/Units 21:18 21:18 21:18 WBC 7.40 (4.50-10.00) 10*3/uL RBC 4.46 (4.40-5.60) 10*6/uL Hgb 14.7 (13.0-17.0) g/dL Hct 41.7 (39.6-50.0) % MCV 93.5 (80.0-97.0) fL MCH 33.0 H (27.0-32.0) pg MCHC 35.3 (32.0-37.0) g/dL Plt Count 188 (140-440) 10*3/uL MPV 11.5 (9.5-12.2) fL Immature Gran % (Auto) 0.3 % Neutrophils % 56.0 % Lymphocytes % 34.9 % Monocytes % 6.9 % Eosinophils % 1.6 % Basophils % 0.3 % Immature Gran # 0.02 (0.00-0.04) 10*3/uL Neutrophils # 4.15 (1.80-7.70) 10*3/uL Lymphocytes # 2.58 (0.90-5.00) 10*3/uL Monocytes # 0.51 (0.20-1.00) 10*3/uL Eosinophils # 0.12 (0.04-0.35) 10*3/uL Basophils # 0.02 (0.00-0.10) 10*3/uL PT 11.0 (10.0-12.5) sec INR 1.0 (<1.2) APTT 20.3 L (22.0-30.0) sec Sodium 134 L (137-145) mmol/L Potassium 5.3 H (3.5-5.1) mmol/L Chloride 100 (98-107) mmol/L Carbon Dioxide 20 L (22-30) mmol/L Anion Gap 14 mmol/L BUN 26 H (9-20) mg/dL Creatinine 0.98 (0.66-1.25) mg/dL Est GFR (CKD-EPI)AfAm 89 (>60 ml/min/1.73 sqM) Est GFR (CKD-EPI)NonAf 77 (>60 ml/min/1.73 sqM) Glucose 412 H (74-99) mg/dL POC Glucose (mg/dL) (70-110) mg/dL POC Glu Car Attendant ID Calcium 9.5 (8.4-10.2) mg/dL Total Bilirubin 0.7 (0.2-1.3) mg/dL AST 40 (17-59) U/L ALT 33 (4-49) U/L Alkaline Phosphatase 83 (38-126) U/L Troponin I (0.000-0.034) ng/mL Total Protein 6.7 (6.3-8.2) g/dL Albumin 3.7 (3.5-5.0) g/dL Urine Color Urine Appearance (Clear) Urine pH (5.0-8.0) Ur Specific [place] (1.001-1.035) Urine Protein (Negative) Urine Glucose (UA) (Negative) Urine Ketones (Negative) Urine Blood (Negative) Urine Nitrite (Negative) Urine Bilirubin (Negative) Urine Urobilinogen (<2.0) mg/dL Ur Leukocyte Esterase (Negative) Acetone, Qual (Negative) 10/05/24 10/05/24 10/05/24 Range/Units 21:18 21:18 22:50 WBC (4.50-10.00) 10*3/uL RBC (4.40-5.60) 10*6/uL Hgb (13.0-17.0) g/dL Hct (39.6-50.0) % MCV (80.0-97.0) fL MCH (27.0-32.0) pg MCHC (32.0-37.0) g/dL Plt Count (140-440) 10*3/uL MPV (9.5-12.2) fL Immature Gran % (Auto) % Neutrophils % % Lymphocytes % % Monocytes % % Eosinophils % % Basophils % % Immature Gran # (0.00-0.04) 10*3/uL Neutrophils # (1.80-7.70) 10*3/uL Lymphocytes # (0.90-5.00) 10*3/uL Monocytes # (0.20-1.00) 10*3/uL Eosinophils # (0.04-0.35) 10*3/uL Basophils # (0.00-0.10) 10*3/uL PT (10.0-12.5) sec INR (<1.2) APTT (22.0-30.0) sec Sodium (137-145) mmol/L Potassium (3.5-5.1) mmol/L Chloride (98-107) mmol/L Carbon Dioxide (22-30) mmol/L Anion Gap mmol/L BUN (9-20) mg/dL Creatinine (0.66-1.25) mg/dL Est GFR (CKD-EPI)AfAm (>60 ml/min/1.73 sqM) Est GFR (CKD-EPI)NonAf (>60 ml/min/1.73 sqM) Glucose (74-99) mg/dL POC Glucose (mg/dL) (70-110) mg/dL POC Glu Car Attendant ID Calcium (8.4-10.2) mg/dL Total Bilirubin (0.2-1.3) mg/dL AST (17-59) U/L ALT (4-49) U/L Alkaline Phosphatase (38-126) U/L Troponin I <0.012 (0.000-0.034) ng/mL Total Protein (6.3-8.2) g/dL Albumin (3.5-5.0) g/dL Urine Color Colorless Urine Appearance Clear (Clear) Urine pH 5.0 (5.0-8.0) Ur Specific [place] 1.031 (1.001-1.035) Urine Protein Negative (Negative) Urine Glucose (UA) 4+ H (Negative) Urine Ketones 2+ H (Negative) Urine Blood Negative (Negative) Urine Nitrite Negative (Negative) Urine Bilirubin Negative (Negative) Urine Urobilinogen <2.0 (<2.0) mg/dL Ur Leukocyte Esterase Negative (Negative) Acetone, Qual Positive (Negative) 10/05/24 10/06/24 10/06/24 Range/Units 23:57 00:36 02:07 WBC (4.50-10.00) 10*3/uL RBC (4.40-5.60) 10*6/uL Hgb (13.0-17.0) g/dL Hct (39.6-50.0) % MCV (80.0-97.0) fL MCH (27.0-32.0) pg MCHC (32.0-37.0) g/dL Plt Count (140-440) 10*3/uL MPV (9.5-12.2) fL Immature Gran % (Auto) % Neutrophils % % Lymphocytes % % Monocytes % % Eosinophils % % Basophils % % Immature Gran # (0.00-0.04) 10*3/uL Neutrophils # (1.80-7.70) 10*3/uL Lymphocytes # (0.90-5.00) 10*3/uL Monocytes # (0.20-1.00) 10*3/uL Eosinophils # (0.04-0.35) 10*3/uL Basophils # (0.00-0.10) 10*3/uL PT (10.0-12.5) sec INR (<1.2) APTT (22.0-30.0) sec Sodium (137-145) mmol/L Potassium (3.5-5.1) mmol/L Chloride (98-107) mmol/L Carbon Dioxide (22-30) mmol/L Anion Gap mmol/L BUN (9-20) mg/dL Creatinine (0.66-1.25) mg/dL Est GFR (CKD-EPI)AfAm (>60 ml/min/1.73 sqM) Est GFR (CKD-EPI)NonAf (>60 ml/min/1.73 sqM) Glucose (74-99) mg/dL POC Glucose (mg/dL) 318 H 348 H 284 H (70-110) mg/dL POC Glu Car Attendant ID [place] Calcium (8.4-10.2) mg/dL Total Bilirubin (0.2-1.3) mg/dL AST (17-59) U/L ALT (4-49) U/L Alkaline Phosphatase (38-126) U/L Troponin I (0.000-0.034) ng/mL Total Protein (6.3-8.2) g/dL Albumin (3.5-5.0) g/dL Urine Color Urine Appearance (Clear) Urine pH (5.0-8.0) Ur Specific [place] (1.001-1.035) Urine Protein (Negative) Urine Glucose (UA) (Negative) Urine Ketones (Negative) Urine Blood (Negative) Urine Nitrite (Negative) Urine Bilirubin (Negative) Urine Urobilinogen (<2.0) mg/dL Ur Leukocyte Esterase (Negative) Acetone, Qual (Negative) 10/06/24 Range/Units 05:54 WBC (4.50-10.00) 10*3/uL RBC (4.40-5.60) 10*6/uL Hgb (13.0-17.0) g/dL Hct (39.6-50.0) % MCV (80.0-97.0) fL MCH (27.0-32.0) pg MCHC (32.0-37.0) g/dL Plt Count (140-440) 10*3/uL MPV (9.5-12.2) fL Immature Gran % (Auto) % Neutrophils % % Lymphocytes % % Monocytes % % Eosinophils % % Basophils % % Immature Gran # (0.00-0.04) 10*3/uL Neutrophils # (1.80-7.70) 10*3/uL Lymphocytes # (0.90-5.00) 10*3/uL Monocytes # (0.20-1.00) 10*3/uL Eosinophils # (0.04-0.35) 10*3/uL Basophils # (0.00-0.10) 10*3/uL PT (10.0-12.5) sec INR (<1.2) APTT (22.0-30.0) sec Sodium (137-145) mmol/L Potassium (3.5-5.1) mmol/L Chloride (98-107) mmol/L Carbon Dioxide (22-30) mmol/L Anion Gap mmol/L BUN (9-20) mg/dL Creatinine (0.66-1.25) mg/dL Est GFR (CKD-EPI)AfAm (>60 ml/min/1.73 sqM) Est GFR (CKD-EPI)NonAf (>60 ml/min/1.73 sqM) Glucose (74-99) mg/dL POC Glucose (mg/dL) 237 H (70-110) mg/dL POC Glu Car Attendant ID [place] Calcium (8.4-10.2) mg/dL Total Bilirubin (0.2-1.3) mg/dL AST (17-59) U/L ALT (4-49) U/L Alkaline Phosphatase (38-126) U/L Troponin I (0.000-0.034) ng/mL Total Protein (6.3-8.2) g/dL Albumin (3.5-5.0) g/dL Urine Color Urine Appearance (Clear) Urine pH (5.0-8.0) Ur Specific [place] (1.001-1.035) Urine Protein (Negative) Urine Glucose (UA) (Negative) Urine Ketones (Negative) Urine Blood (Negative) Urine Nitrite (Negative) Urine Bilirubin (Negative) Urine Urobilinogen (<2.0) mg/dL Ur Leukocyte Esterase (Negative) Acetone, Qual (Negative) Disposition Clinical Impression: Fall, Clavicle fracture Disposition: ADMITTED IP TO THIS [facility] Condition: Stable Is patient prescribed a controlled substance at d/c from ED?: No
--- NOTE | 2024-10-05 21:15 | CT ---
EXAMINATION TYPE: CT brain cspine wo con CT DLP: 1691.1 mGycm, Automated exposure control for dose reduction was used. DATE OF EXAM: 10/05/2024 9:06 PM COMPARISON: CT brain C-spine 09/18/2024. CLINICAL INDICATION:Male, 74 years old with history of fall, code coag; Code Coag. Fall on thinners., pain TECHNIQUE: Brain: Multiple axial CT images of the brain were obtained without IV contrast. Cspine: Axial CT images from the skull base to the inferior aspect of T2 we obtained without intraven ous contrast. Coronal and sagittal reformatted images were also reviewed. FINDINGS: Brain: Extra-axial spaces: No abnormal extra-axial fluid collections. Ventricular system: Dilatation in proportion to cerebral atrophy. Cerebral parenchyma: Mild cerebral atrophy. No acute intraparenchymal hemorrhage or mass effect. The maria-white junction is well differentiated. Scattered hypoattenuating areas are seen within the pablo ventricular white matter. Cerebellum: Unremarkable. Mass effect: No evidence of midline shift. Intracranial vasculature: Atherosclerotic calcifications of the intracranial vessels. Soft tissues: Normal. Calvarium/osseous structures: No depressed skull fracture. Paranasal sinuses and mastoid air cells: Clear. Visualized orbits: Right aphakia and right scleral calcification. Cervical spine: Fracture: None. Osseous structures: Disc space with endplate sclerosis and anterior osteophytosis at C5-C6. Vertebral alignment: Within normal limits. Spinal canal/Neural Foramina: No evidence of significant spinal canal narrowing. No evidence for sign ificant neural foraminal stenosis. Neck soft tissues: Prevertebral soft tissues are within normal limits. Other: The airway is patent. The lung apices are clear. Bilateral carotid bulb calcifications. IMPRESSION: 1. No acute intracranial process. 2. Nonspecific white matter changes, likely secondary to chronic small vessel ischemic disease. 3. No evidence of cervical spine fracture. 4. Mild multilevel degenerative disc disease. [facility], , 10/05/2024 9:13 PM
[2024-10-05 21:27] LABS: Basophils # (A) 0.02 10*3/uL (0.00-0.10); Basophils % (A) 0.3 %; Eosinophils # (A) 0.12 10*3/uL (0.04-0.35); Eosinophils % (A) 1.6 %; HCT 41.7 % (39.6-50.0); HGB 14.7 g/dL (13.0-17.0); Lymphocytes # (A) 2.58 10*3/uL (0.90-5.00); Lymphocytes % (A) 34.9 %; MCH 33.0 pg (27.0-32.0); MCHC 35.3 g/dL (32.0-37.0); MCV 93.5 fL (80.0-97.0); Monocytes # (A) 0.51 10*3/uL (0.20-1.00); Monocytes % (A) 6.9 %; Neutrophils # (A) 4.15 10*3/uL (1.80-7.70); Neutrophils % (A) 56.0 %; Platelet Count 188 10*3/uL (140-440); RBC 4.46 10*6/uL (4.40-5.60); RDW 12.7 % (11.5-14.5); WBC 7.40 10*3/uL (4.50-10.00)
[2024-10-05] MEDS: HYDROmorphone 0.5 MG/0.5 ML SYRINGE IVP STA ×2 (21:31→23:08)
[2024-10-05 21:39] LABS: ALT 33 U/L (4-49); AST 40 U/L (17-59); African American GFR (CKD) 89 (>60 ml/min/1.73 sqM); Albumin 3.7 g/dL (3.5-5.0); Alkaline Phosphatase 83 U/L (38-126); Anion Gap 14 mmol/L; Blood Urea Nitrogen 26 mg/dL (9-20); Calcium 9.5 mg/dL (8.4-10.2); Carbon Dioxide 20 mmol/L (22-30); Chloride 100 mmol/L (98-107); Glucose 412 mg/dL (74-99); Non-African American GFR(CKD) 77 (>60 ml/min/1.73 sqM); Potassium 5.3 mmol/L (3.5-5.1); Sodium 134 mmol/L (137-145); Total Protein 6.7 g/dL (6.3-8.2)
[2024-10-05 21:48] LABS: INR 1.0 (<1.2); Prothrombin Time 11.0 sec (10.0-12.5)
[2024-10-05 21:54] LABS: Partial Thromboplastin Time 20.3 sec (22.0-30.0)
--- NOTE | 2024-10-05 21:55 | XR ---
EXAMINATION TYPE: XR chest 1V DATE OF EXAM: 10/05/2024 9:49 PM COMPARISON: Chest radiographs from 09/18/2024 TECHNIQUE: XR chest 1V Frontal view of the chest. CLINICAL INDICATION:Male, 74 years old with history of fall; pain FINDINGS: Lungs/Pleura: There is no evidence of pleural effusion, focal consolidation, or pneumothorax. Pulmonary vascularity: Unremarkable. Heart/mediastinum: Cardiomediastinal silhouette is unremarkable. Musculoskeletal: No acute osseous pathology. IMPRESSION: No acute cardiopulmonary disease/process. [facility], , 10/05/2024 9:52 PM
--- NOTE | 2024-10-05 21:56 | XR ---
EXAMINATION TYPE: XR pelvis AP view DATE OF EXAM: 10/05/2024 9:49 PM INDICATION: Patient age:Male; 74 years old; Reason for study: fall; PHH. pain COMPARISON: Pelvic radiograph 10/09/2022 TECHNIQUE: The pelvis was examined in a single projection. FINDINGS: There is no evidence of fracture or dislocation. There is no soft tissue abnormality. The S I joints appear intact. No abnormal calcifications are present. Mild osteoarthritic changes of both h ips with medial joint space narrowing and acetabular sclerosis. Multilevel degenerative changes of th e lower spine with partial visualization of lumbar fusion hardware. IMPRESSION: No acute osseous pathology. [facility], , 10/05/2024 9:54 PM
--- NOTE | 2024-10-05 21:59 | XR ---
EXAMINATION TYPE: XR shoulder complete LT DATE OF EXAM: 10/05/2024 9:49 PM INDICATION: Patient age:Male; 74 years old; Reason for study: fall; pain COMPARISON: Left shoulder radiograph 02/26/2021 TECHNIQUE: The left shoulder was examined in AP, internally rotated and scapular Y projections. . FINDINGS: Acute mildly displaced distal left clavicular fracture. No dislocation. AC joint appears intact. Left shoulder arthropathy with joint space narrowing and osteophyte formation. There is a remote fracture that is healed to the left humeral neck. The visualized portion of the left chest are clear. No evidence of acute osseous pathology, joint dislocation, or soft tissue swelling. The remaining por tions of the visualized chest are unremarkable. IMPRESSION: 1. Acute mildly displaced left distal clavicular fracture. 2. Left shoulder arthropathy with remote healed fracture of the left humeral neck. [facility], , 10/05/2024 9:57 PM
[2024-10-05] MEDS: SODIUM CHLORIDE 0.9% 500 ML 500 ML IV ONE (22:54)
[2024-10-05 23:46] LABS: Bilirubin,Urine Negative (Negative); Blood,Urine Negative (Negative); Color,Urine Colorless; Glucose,Urine (UA) 4+ (Negative); Leukocyte Esterase,Urine Negative (Negative); Nitrite,Urine Negative (Negative); PH, Urine 5.0 (5.0-8.0); Protein,Urine Negative (Negative); Specific Gravity,Urine 1.031 (1.001-1.035); Urobilinogen,Urine <2.0 mg/dL (<2.0)
[2024-10-05 23:49] LABS: Ketones,Urine 2+ (Negative)
[2024-10-05] MEDS ORDERED: NALOXONE 0.4 MG/ML 1 ML VIAL IV PRN (23:53)
[2024-10-05] MEDS ORDERED: ONDANSETRON 4 MG/2 ML VIAL IVP PRN (23:53)
[2024-10-05] MEDS ORDERED: HYDROmorphone 1 MG/ML 1 ML SYRINGE IVP PRN (23:53)
[2024-10-05 23:58] LABS: Glucose,Whole Blood 318 mg/dL (70-110)
[2024-10-06] MEDS ORDERED: DEXTROSE 50% SYRINGE 50 ML IVP PRN ×2 (00:08)
[2024-10-06 00:39] LABS: Glucose,Whole Blood 348 mg/dL (70-110)
[2024-10-06] MEDS: INSULIN LISPRO (HumaLOG) 100 UNIT/ML 10 mL VL SQ ONE (00:42)
[2024-10-06] MEDS: HYDROmorphone 0.5 MG/0.5 ML SYRINGE IVP PRN (02:08)
[2024-10-06 02:09] LABS: Glucose,Whole Blood 284 mg/dL (70-110)
[2024-10-06 05:57] LABS: Glucose,Whole Blood 237 mg/dL (70-110)
[2024-10-06] MEDS: INSULIN LISPRO (HumaLOG) 100 UNIT/ML 10 mL VL SQ SCH (07:00)
[2024-10-06] MEDS ORDERED: HYDROcodone/APAP 7.5-325MG 1 EACH TAB PO PRN (08:31)
[2024-10-06] MEDS: ENOXAPARIN 40 MG/0.4 ML SYRINGE SQ SCH (09:35)
--- NOTE | 2024-10-06 11:21 | P.GSHP ---
History of Present Illness H&P Date: 10/06/24 CHIEF COMPLAINT: Fall HISTORY OF PRESENT ILLNESS: This is a 74-year-old male who presented to the ER with left shoulder pain and neck pain after a fall. Patient fell in his bathroom. He did not lose consciousness. He was unsure if he hit his head. He complains of left shoulder pain. Patient is on Plavix at home. X-ray of the left shoulder reported a acute mildly displaced left distal clavicle fracture. Patient has a sling in place and Ortho has been consulted. Patient is weak. He does use a walker at home. He is requiring assistance to lay back in his bed. PAST MEDICAL HISTORY: See below PAST SURGICAL HISTORY: See below MEDICATIONS: See below ALLERGIES: See below SOCIAL HISTORY: No illicit drug use. REVIEW OF SYSTEMS: CONSTITUTIONAL: Denies fever or chills. HEENT: Denies blurred vision, vision changes, or eye pain. Denies hemoptysis CARDIOVASCULAR: Denies chest pain or pressure. RESPIRATORY: No shortness of breath. GASTROINTESTINAL: Denies abdominal pain, nausea or vomiting HEMATOLOGIC: Denies bleeding disorders. GENITOURINARY: Denies any blood in urine or increased urinary frequency. SKIN: Denies pruitis. Denies rash. PHYSICAL EXAM: VITAL SIGNS: Reviewed GENERAL: Well-developed in no acute distress. HEENT: No sclera icterus. Extraocular movements grossly intact. Moist buccal mucosa. Head is atraumatic, normocephalic. No nasal drainage. ABDOMEN: Soft. Nondistended. Nontender NEUROLOGIC: Alert and oriented. Cranial nerves II through XII grossly intact. Extremities: Left arm in sling LABORATORY DATA: WBC 7.4 Hgb 14.7 platelets 188 Sodium 134 potassium 5.3 creatinine 0.98 glucose 318 Acetone positive IMAGING: CT scan head and neck no acute intracranial process no evidence of cervical spinal fracture Chest x-ray no acute cardiopulmonary disease Pelvic x-ray no acute osseous pathology Left shoulder x-ray acute mildly displaced left distal clavicular fracture. Left shoulder arthropathy with remote healed fracture of the left humeral neck. ASSESSMENT: 1. Fall 2. Left distal clavicular fracture mildly displaced 3. Diabetes mellitus with elevated blood sugars PLAN: - Continue pain management. Resume home oral [place]. - Orthopedic service consulted for left clavicular fracture - Medicine service consulted for medical management and diabetes management - Consult PT OT - Consult correctional case records supervisor for possible ECF placement - Resume home medications - DVT prophylaxis Lovenox and GI prophylaxis Protonix Physician Call Center Team Leader note has been reviewed by physician. Signing provider agrees with the documented findings, assessment, and plan of care. Attestation Patient seen and examined at bedside on 10/06/2024 at approximately 7:30 AM. Presented with chief complaint of fall and found to have a left distal clavicular fracture that is mildly displaced. He is in pain at this time and states that this is the second clavicular injury over the past 2 years. We will continue current pain regimen. Orthopedic service consulted for evaluation possibility of surgical repair. Consult physical and Occupational Therapy. Pat ient will require ECF placement and we will consult correctional case records supervisor for this. Medical consult has been placed. No additional injuries are noted. Patient denies any other painful sites on his body Shilpin Roque, DO Past Medical History Past Medical History: Blood Disorder, Coronary Artery Disease (CAD), CVA/TIA, Dementia, Diabetes Mellitus, Eye Disorder, GERD/Reflux, Hearing Disorder / Deafness, Hyperlipidemia, Hypertension, Neurologic Disorder, Osteoarthritis (OA), Prostate Disorder, Renal Disease, Syncope Additional Past Medical History / Comment(s): spouse states "able to sign consents", pilonidal cyst, recent yeast infection to penis, IDDM type 1, bilateral legs/feet/arms and hand neuropathy, chronic renal disease, difficulty swallowing, RLS, factor V Leiden, early dementia, BPH, bilateral tinnitis, R eye retinal bleeds x2, chronic low back pain with bilateral sciatica which is worse on the right side, bilateral shoulder and cervical pain, possible TIAs (01/13), History of Any Multi-Drug Resistant Organisms: None Reported Past Surgical History: Adenoidectomy, Back Surgery, Heart Catheterization, Orthopedic Surgery, Tonsillectomy Additional Past Surgical History / Comment(s): Lumbar laminectomy, R knee cartildge surgery, bilateral carpal tunnel released, sen wrist dequevain surgery, R rotator cuff repair, L foot pins and plates, EGD, colonoscopy, R eye laser eye surgery for retinal bleeds, bilateral cataract removals/lens implants Past Anesthesia/Blood Transfusion Reactions: Motion Sickness Additional Past Anesthesia/Blood Transfusion Reaction / Comment(s): no hx blood transfusion Past Psychological History: Depression Additional Psychological History / Comment(s): Pt resides with his spouse and their adult son. Pt uses a walker prn. He drives. He is currently managing his own medications but admits this is getting more difficult. Smoking Status: Former smoker Past Alcohol Use History: None Reported Additional Past Alcohol Use History / Comment(s): Pt started smoking in 1962 and quit in 1987 Past Drug Use History: None Reported - Past Family History Brother(s) Family Medical History: Blood Disorder, Deep Vein Thrombosis (DVT) Mother Additional Family Medical History / Comment(s): Mother had palsey Father Family Medical History: COPD, Myocardial Infarction ([place]) Additional Family Medical History / Comment(s): Father of COPD/PR at the age of 72 yrs. Medications and Allergies Home Medications Medication Instructions Recorded Confirmed Type Tamsulosin [Flomax] 0.4 mg PO DAILY 11/09/18 10/06/24 History Clopidogrel [Plavix] 75 mg PO DAILY 08/06/23 10/06/24 History Ergocalciferol [Vitamin D2 (1250 1,250 mcg PO WEEKLY 08/06/23 10/06/24 History Mcg = 23560 Iu)] Atorvastatin [Lipitor] 80 mg PO HS 30 Days #30 tab 08/07/23 10/06/24 Rx Memantine HCl 5 mg PO BID 08/27/24 10/06/24 History HYDROcodone/APAP 10-325MG [[place] 1 tab PO Q8H PRN 10/06/24 10/06/24 History 10-325] Insulin Glargine-Yfgn [Semglee 70 unit SQ DAILY 10/06/24 10/06/24 History (Yfgn) Pen] Metoprolol Tartrate [Lopressor] 25 mg PO BID 10/06/24 10/06/24 History Pantoprazole Sodium [Protonix] 40 mg PO BID 10/06/24 10/06/24 History Allergies Allergy/AdvReac Type Severity Reaction Status Date / Time No Known Allergies Allergy Verified 10/06/24 10:11 Surgical - Exam Osteopathic Statement: *. No significant issues noted on an osteopathic s tructural exam other than those noted in the History and Physical/Consult. Vital Signs Temp Pulse Resp BP Pulse Ox 98.4 F 68 16 145/81 99 10/05/24 21:04 10/05/24 21:04 10/05/24 21:04 10/05/24 21:04 10/05/24 21:04 Results - Labs 10/07/24 05:33 10/07/24 05:33 Abnormal Lab Results - Last 24 Hours (Table) 10/05/24 10/05/24 10/05/24 Range/Units 21:18 21:18 21:18 MCH 33.0 H (27.0-32.0) pg APTT 20.3 L (22.0-30.0) sec Sodium 134 L (137-145) mmol/L Potassium 5.3 H (3.5-5.1) mmol/L Carbon Dioxide 20 L (22-30) mmol/L BUN 26 H (9-20) mg/dL Glucose 412 H (74-99) mg/dL POC Glucose (mg/dL) (70-110) mg/dL Urine Glucose (UA) (Negative) Urine Ketones (Negative) 10/05/24 10/05/24 10/06/24 Range/Units 22:50 23:57 00:36 MCH (27.0-32.0) pg APTT (22.0-30.0) sec Sodium (137-145) mmol/L Potassium (3.5-5.1) mmol/L Carbon Dioxide (22-30) mmol/L BUN (9-20) mg/dL Glucose (74-99) mg/dL POC Glucose (mg/dL) 318 H 348 H (70-110) mg/dL Urine Glucose (UA) 4+ H (Negative) Urine Ketones 2+ H (Negative) 10/06/24 10/06/24 Range/Units 02:07 05:54 MCH (27.0-32.0) pg APTT (22.0-30.0) sec Sodium (137-145) mmol/L Potassium (3.5-5.1) mmol/L Carbon Dioxide (22-30) mmol/L BUN (9-20) mg/dL Glucose (74-99) mg/dL POC Glucose (mg/dL) 284 H 237 H (70-110) mg/dL Urine Glucose (UA) (Negative) Urine Ketones (Negative) Diabetes panel 10/05/24 Range/Units 21:18 Sodium 134 L (137-145) mmol/L Potassium 5.3 H (3.5-5.1) mmol/L Chloride 100 (98-107) mmol/L Carbon Dioxide 20 L (22-30) mmol/L BUN 26 H (9-20) mg/dL Creatinine 0.98 (0.66-1.25) mg/dL Glucose 412 H (74-99) mg/dL Calcium 9.5 (8.4-10.2) mg/dL AST 40 (17-59) U/L ALT 33 (4-49) U/L Alkaline Phosphatase 83 (38-126) U/L Total Protein 6.7 (6.3-8.2) g/dL Albumin 3.7 (3.5-5.0) g/dL Calcium panel 10/05/24 Range/Units 21:18 Calcium 9.5 (8.4-10.2) mg/dL Albumin 3.7 (3.5-5.0) g/dL Pituitary panel 10/05/24 Range/Units 21:18 Sodium 134 L (137-145) mmol/L Potassium 5.3 H (3.5-5.1) mmol/L Chloride 100 (98-107) mmol/L Carbon Dioxide 20 L (22-30) mmol/L BUN 26 H (9-20) mg/dL Creatinine 0.98 (0.66-1.25) mg/dL Glucose 412 H (74-99) mg/dL Calcium 9.5 (8.4-10.2) mg/dL Adrenal panel 10/05/24 Range/Units 21:18 Sodium 134 L (137-145) mmol/L Potassium 5.3 H (3.5-5.1) mmol/L Chloride 100 (98-107) mmol/L Carbon Dioxide 20 L (22-30) mmol/L BUN 26 H (9-20) mg/dL Creatinine 0.98 (0.66-1.25) mg/dL Glucose 412 H (74-99) mg/dL Calcium 9.5 (8.4-10.2) mg/dL Total Bilirubin 0.7 (0.2-1.3) mg/dL AST 40 (17-59) U/L ALT 33 (4-49) U/L Alkaline Phosphatase 83 (38-126) U/L Total Protein 6.7 (6.3-8.2) g/dL Albumin 3.7 (3.5-5.0) g/dL
[2024-10-06 11:37] LABS: Glucose,Whole Blood 245 mg/dL (70-110)
[2024-10-06 12:28] LABS: African American GFR (CKD) 78 (>60 ml/min/1.73 sqM); Anion Gap 12 mmol/L; Blood Urea Nitrogen 25 mg/dL (9-20); Calcium 9.2 mg/dL (8.4-10.2); Carbon Dioxide 23 mmol/L (22-30); Chloride 102 mmol/L (98-107); Glucose 199 mg/dL (74-99); Non-African American GFR(CKD) 68 (>60 ml/min/1.73 sqM); Potassium 5.0 mmol/L (3.5-5.1); Sodium 137 mmol/L (137-145)
[2024-10-06] MEDS: INSULIN GLARGINE (LANTUS) 100 UNIT/ML SYR SQ SCH (12:33)
[2024-10-06] MEDS: METOPROLOL TARTRATE 25 MG TAB PO SCH (12:41)
[2024-10-06 14:58] VITALS: BMI 36.6
[2024-10-06 16:30] LABS: Glucose,Whole Blood 165 mg/dL (70-110)
[2024-10-06] MEDS: PANTOPRAZOLE 40 MG TABLET PO SCH (16:42)
[2024-10-06] MEDS: HYDROcodone/APAP 5-325MG 1 EACH TAB PO PRN (16:48)
[2024-10-06 20:10] LABS: Glucose,Whole Blood 147 mg/dL (70-110)
[2024-10-06] MEDS: ATORVASTATIN 80 MG TAB PO SCH (20:36)
[2024-10-06] MEDS: MEMANTINE 5 MG TAB PO SCH (20:36)
--- NOTE | 2024-10-06 22:38 | P.CONS ---
History of Present Illness - Reason for Consult Consult date: 10/06/24 Sacral wound Requesting physician: Ej Gibson - Chief Complaint Fall and left shoulder pain x 1 day - History of Present Illness Patient is a 74-year-old male with a past medical history significant for Blood Disorder, Coronary Artery Disease (CAD), CVA/TIA, Dementia, Diabetes Mellitus, Eye Disorder, GERD/Reflux, Hearing Disorder / Deafness, Hyperlipidemia, Hypertension, Neurologic Disorder, Osteoarthritis (OA), Prostate Disorder, Renal Disease, Syncope, recently did have a pilonidal sinus surgery done presenting to the hospital after the patient did have a fall and has been complaining of pain to the left shoulder and neck area patient fell while in the bathroom when she did get lightheaded prior to the fall not very clear if he has hit his head but did not lose any consciousness has been complaining of pain to left shoulder area describing to be sharp moderate intense without radiation no weakness in the arm on presentation to the hospital the patient was afebrile and no fever have been called subsequently patient was not tachycardic hypotensive or hypoxic patient did have a white count 7.40, creatinine 1.08 electrolytes are normal liver enzymes are normal urine has been negative patient did have a head and cervical spine CT no acute intracranial process no evidence for cervical spine fracture shoulder x-ray acute mildly displaced left distal clavicular fracture left shoulder arthropathy with remote healed fracture of the left humeral neck patient has been admitted to hospital infectious he was consulted because of wound care to his sacral area. Pilonidal cyst resection currently being treated with wet-to-dry dressing patient denies having any fever or drainage and the patient denies having any pain to the sacral wound area and denies any foul-smelling drainage Review of Systems Positive point and negatives has been mentioned in the HPI, complete review of systems was performed and all other systems are negative Past Medical History Past Medical History: Blood Disorder, Coronary Artery Disease (CAD), CVA/TIA, Dementia, Diabetes Mellitus, Eye Disorder, GERD/Reflux, Hearing Disorder / Deafness, Hyperlipidemia, Hypertension, Neurologic Disorder, Osteoarthritis (OA), Prostate Disorder, Renal Disease, Syncope Additional Past Medical History / Comment(s): spouse states "able to sign consents", pilonidal cyst, recent yeast infection to penis, IDDM type 1, bilateral legs/feet/arms and hand neuropathy, chronic renal disease, difficulty swallowing, RLS, factor V Leiden, early dementia, BPH, bilateral tinnitis, R eye retinal bleeds x2, chronic low back pain with bilateral sciatica which is worse on the right side, bilateral shoulder and cervical pain, possible TIAs (01/13), History of Any Multi-Drug Resistant Organisms: None Reported Past Surgical History: Adenoidectomy, Back Surgery, Heart Catheterization, Orthopedic Surgery, Tonsillectomy Additional Past Surgical History / Comment(s): Lumbar laminectomy, R knee cartildge surgery, bilateral carpal tunnel released, sen wrist dequevain surgery, R rotator cuff repair, L foot pins and plates, EGD, colonoscopy, R eye laser eye surgery for retinal bleeds, bilateral cataract removals/lens implants Past Anesthesia/Blood Transfusion Reactions: Motion Sickness Additional Past Anesthesia/Blood Transfusion Reaction / Comm: no hx blood transfusion Past Psychological History: Depression Additional Psychological History / Comment(s): Pt resides with his spouse and their adult son. Pt uses a walker prn. He drives. He is currently managing his own medications but admits this is getting more difficult. Smoking Status: Former smoker Past Alcohol Use History: None Reported Additional Past Alcohol Use History / Comment(s): Pt started smoking in 1962 and quit in 1987 Past Drug Use History: None Reported - Past Family History Brother(s) Family Medical History: Blood Disorder, Deep Vein Thrombosis (DVT) Mother Additional Family Medical History / Comment(s): Mother had palsey Father Family Medical History: COPD, Myocardial Infarction ([place]) Additional Family Medical History / Comment(s): Father of COPD/[place] at the age of 72 yrs. Medications and Allergies Home Medications Medication Instructions Recorded Confirmed Type Tamsulosin [Flomax] 0.4 mg PO DAILY 11/09/18 10/06/24 History Clopidogrel [Plavix] 75 mg PO DAILY 08/06/23 10/06/24 History Ergocalciferol [Vitamin D2 (1250 1,250 mcg PO WEEKLY 08/06/23 10/06/24 History Mcg = 16634 Iu)] Atorvastatin [Lipitor] 80 mg PO HS 30 Days #30 tab 08/07/23 10/06/24 Rx Memantine HCl 5 mg PO BID 08/27/24 10/06/24 History HYDROcodone/APAP 10-325MG [[place] 1 tab PO Q8H PRN 10/06/24 10/06/24 History 10-325] Insulin Glargine-Yfgn [Semglee 70 unit SQ DAILY 10/06/24 10/06/24 History (Yfgn) Pen] Metoprolol Tartrate [Lopressor] 25 mg PO BID 10/06/24 10/06/24 History Pantoprazole Sodium [Protonix] 40 mg PO BID 10/06/24 10/06/24 History Allergies Allergy/AdvReac Type Severity Reaction Status Date / Time No Known Allergies Allergy Verified 10/06/24 10:11 Physical Exam Vitals: Vital Signs Temp Pulse Pulse Resp BP BP Pulse Ox 10/06/24 20:33 86 124/73 99 10/06/24 19:32 98.1 F 65 18 135/64 98 10/06/24 13:24 98.3 F 83 16 130/66 96 10/06/24 07:46 98.0 F 87 16 160/72 97 10/06/24 01:35 98.0 F 84 18 167/75 98 10/06/24 00:30 98.2 F 89 18 176/73 96 10/05/24 22:41 74 11 L 171/88 97 Intake and Output 10/06/24 10/06/24 10/06/24 06:59 14:59 22:59 Output Total 500 Balance -500 Output: Urine 500 Other: # Voids 1 4 Weight 122.47 kg 122.47 kg GENERAL DESCRIPTION: Elderly male lying in bed, no distress. No tachypnea or accessory muscle of respiration use. HEENT: Shows Pallor , no scleral icterus. Oral mucous membrane is dry. No pharyngeal erythema or thrush NECK: Trachea central, no thyromegaly. LUNGS: Unlabored breathing. Clear to auscultation anteriorly. No wheeze or crackle. HEART: S1, S2, regular rate and rhythm. No loud murmur ABDOMEN: Soft, no tenderness , guarding or rigidity, no organomegaly EXTREMITIES: No edema of feet. SKIN: Patient did have a sacral wound post surgery for the pilonidal cyst the wound base looks clean with good granulation tissue there was no slough tissue no surrounding redness or foul-smelling drainage NEUROLOGICAL: The patient is awake, alert, oriented x3, mood and affect normal. Results CBC & Chem 7: 10/05/24 21:18 10/06/24 11:30 Labs: Abnormal Lab Results - Last 24 Hours (Table) 10/05/24 10/05/24 10/06/24 Range/Units 22:50 23:57 00:36 BUN (9-20) mg/dL Glucose (74-99) mg/dL POC Glucose (mg/dL) 318 H 348 H (70-110) mg/dL Urine Glucose (UA) 4+ H (Negative) Urine Ketones 2+ H (Negative) 10/06/24 10/06/24 10/06/24 Range/Units 02:07 05:54 11:30 BUN 25 H (9-20) mg/dL Glucose 199 H (74-99) mg/dL POC Glucose (mg/dL) 284 H 237 H (70-110) mg/dL Urine Glucose (UA) (Negative) Urine Ketones (Negative) 10/06/24 10/06/24 10/06/24 Range/Units 11:35 16:29 20:09 BUN (9-20) mg/dL Glucose (74-99) mg/dL POC Glucose (mg/dL) 245 H 165 H 147 H (70-110) mg/dL Urine Glucose (UA) (Negative) Urine Ketones (Negative) Assessment and Plan (1) Wound of sacral region Current Visit: Yes Status: Acute Code(s): S31.000A - UNSP OPN WND LOW BACK AND PELV W/O PENET RETROPERITON, INIT SNOMED Code(s): 626645903 (2) Pilonidal cyst Current Visit: Yes Status: Acute Code(s): L05.91 - PILONIDAL CYST WITHOUT ABSCESS SNOMED Code(s): 36473255 Plan: 1patient with the open wound to the sacral area status post removal of the pilonidal cyst in this patient presented to the hospital after a fall and did have a left clavicular fracture patient did not have any fever patient wound base looks clean with no slough tissue no surrounding redness will recommend local wound care only and there is no need for any systemic antibiotic therapy 2-we will pack the wound with Aquacel silver dressing change q. 48-hour nursing staff to assess the area if wound VAC can be applied that may be a better option at the bedside question answered We will follow on clinical condition and cultures to further adjust medication if needed Thank you for this consultation we will follow the patient along with you Dictation was produced using [email or web address] dictation software. please excuse any grammatical, word or spelling errors. Time with Patient: Greater than 30
[2024-10-07 06:16] LABS: Glucose,Whole Blood 112 mg/dL (70-110)
[2024-10-07 08:08] LABS: Basophils # (A) 0.03 X 10*3/uL (0.00-0.10); Basophils % (A) 0.4 %; Eosinophils # (A) 0.21 X 10*3/uL (0.04-0.35); Eosinophils % (A) 2.7 %; HCT 39.3 % (39.6-50.0); HGB 13.1 g/dL (13.0-17.0); Immature Grans, Automated 0.30 %; Lymphocytes # (A) 3.58 X 10*3/uL (0.90-5.00); Lymphocytes % (A) 46.4 %; MCH 31.6 pg (27.0-32.0); MCHC 33.3 g/dL (32.0-37.0); MCV 94.7 FL (80.0-97.0); Monocytes # (A) 0.61 X 10*3/uL (0.20-1.00); Monocytes % (A) 7.9 %; NRBC Per 100 WBC 0 X 10*3/uL (0.00-0.01); Neutrophils # (A) 3.26 X 10*3/uL (1.80-7.70); Neutrophils % (A) 42.3 %; Platelet Count 151 X 10*3/uL (140-440); RBC 4.15 X 10*6/uL (4.40-5.60); RDW 13.4 % (11.5-14.5); WBC 7.71 X 10*3/uL (4.50-10.00)
[2024-10-07 08:12] LABS: BUN/Creat Ratio 16.73 Ratio (12.00-20.00); Blood Urea Nitrogen 18.4 mg/dL (9.0-27.0); Chloride 108 mmol/L (96-109); Glucose 116 mg/dL (70-110); Potassium 4.0 mmol/L (3.5-5.5); Sodium 142 mmol/L (135-145)
[2024-10-07 08:13] LABS: ALT 29 U/L (10-49); AST 38 U/L (14-35); Albumin 3.4 g/dL (3.8-4.9); Albumin/Globulin Ratio 1.36 Ratio (1.60-3.17); Alkaline Phosphatase 55 U/L (41-126); Anion Gap 10.50 mmol/L (4.00-12.00); Calcium 8.7 mg/dL (8.7-10.3); Carbon Dioxide 23.5 mmol/L (21.6-31.8); Globulin 2.5 g/dL (1.6-3.3); Total Protein 5.9 g/dL (6.2-8.2)
[2024-10-07] MEDS: CLOPIDOGREL 75 MG TAB PO SCH (08:30)
[2024-10-07] MEDS: TAMSULOSIN 0.4 MG CAP.ER.24H PO SCH (08:30)
--- NOTE | 2024-10-07 10:09 | P.PN ---
Subjective Progress Note Date: 10/07/24 SURGICAL PROGRESS NOTE CHIEF COMPLAINT: Fall with left clavicle fracture HISTORY OF PRESENT ILLNESS: Patient in left arm sling. He does have pain with movement. Denies any nausea or vomiting. Tolerating breakfast. Vital stable. WBC 7.71. PHYSICAL EXAM: VITAL SIGNS: Reviewed. GENERAL: Well-developed in no acute distress. ABDOMEN: Soft. Nondistended. Nontender. NEUROLOGIC: Alert and oriented. Cranial nerves II through XII grossly intact. Extremities: Left arm in sling ASSESSMENT: 1. Fall 2. Left distal clavicular fracture mildly displaced 3. Diabetes mellitus 4. Recent pilonidal cystectomy PLAN: - Patient scheduled to work with PT OT - occupational health manager arranging ECF placement - Continue wound care per ID service for recent pilonidal cystectomy - Awaiting orthopedic recommendations - Diabetes management per medical service - Continue pain management - DVT prophylaxis Lovenox Physician Welding Estimator note has been reviewed by physician. Signing provider agrees with the documented findings, assessment, and plan of care. Attestation Patient seen and examined at bedside on 10/07/2024. Presented with chief complaint of fall and found to have left clavicle fracture. He is scheduled to work with physical and occupational therapy with plan for ECF placement. Orthopedic surgery is following with recommendation for nonoperative management. Wound care per ID service for recent pilonidal cystectomy. Anny Roque DO Objective - Vital Signs Vital signs: Vital Signs Temp 98.0 F 10/07/24 07:02 Pulse 57 L 10/07/24 07:02 Resp 17 10/07/24 07:02 BP 125/74 10/07/24 07:02 Pulse Ox 99 10/07/24 07:02 FiO2 Intake & Output 10/06/24 10/07/24 10/07/24 18:59 06:59 18:59 Weight 122.47 kg Other: Voiding Method Urinal Diaper # Voids 4 2 - Labs CBC & Chem 7: 10/09/24 02:48 10/09/24 02:48 Labs: Abnormal Lab Results - Last 24 Hours (Table) 10/06/24 10/06/24 10/06/24 Range/Units 11:30 11:35 16:29 RBC (4.40-5.60) X 10*6/uL Hct (39.6-50.0) % BUN 25 H (9-20) mg/dL Glucose 199 H (74-99) mg/dL POC Glucose (mg/dL) 245 H 165 H (70-110) mg/dL AST (14-35) U/L Total Protein (6.2-8.2) g/dL Albumin (3.8-4.9) g/dL Albumin/Globulin Ratio (1.60-3.17) Ratio 10/06/24 10/07/24 10/07/24 Range/Units 20:09 05:33 05:33 RBC 4.15 L (4.40-5.60) X 10*6/uL Hct 39.3 L (39.6-50.0) % BUN (9-20) mg/dL Glucose 116 H (74-99) mg/dL POC Glucose (mg/dL) 147 H (70-110) mg/dL AST 38 H (14-35) U/L Total Protein 5.9 L (6.2-8.2) g/dL Albumin 3.4 L (3.8-4.9) g/dL Albumin/Globulin Ratio 1.36 L (1.60-3.17) Ratio 10/07/24 Range/Units 06:14 RBC (4.40-5.60) X 10*6/uL Hct (39.6-50.0) % BUN (9-20) mg/dL Glucose (74-99) mg/dL POC Glucose (mg/dL) 112 H (70-110) mg/dL AST (14-35) U/L Total Protein (6.2-8.2) g/dL Albumin (3.8-4.9) g/dL Albumin/Globulin Ratio (1.60-3.17) Ratio
--- NOTE | 2024-10-07 11:17 | P.CONS ---
History of Present Illness - Reason for Consult Consult date: 10/06/24 - History of Present Illness Yury Brewer is a 74-year-old male patient who presented to the ER with left shoulder pain and neck pain after a fall patient apparently fell in bathroom but did not lose consciousness. X-ray of the left shoulder reported acute mild displaced left distal clavicle fracture patient was admitted to hospital under surgical services. Head CT was performed showing no acute intracranial process nonspecific white matter changes likely secondary to chronic small vessel ischemic disease no evidence of cervical spine fracture. Chest x-ray completed showing no acute cardiopulmonary disease. Pelvis x-ray completed showing no acute process. Lab work completed showing white blood cell 7.71, hemoglobin 13.1, creatinine 1.08 bun 25 AST 38 ALT 29. Current vital signs temp 98.1, height 65, respiratory rate 18, blood pressure 135/64 with pulse ox of 98% on room air. At this time patient is resting comfortably in bed arm in sling no plans for surgical intervention. Patient will likely need rehab upon discharge. Review of Systems Further HPI otherwise unremarkable Past Medical History Past Medical History: Blood Disorder, Coronary Artery Disease (CAD), CVA/TIA, Dementia, Diabetes Mellitus, Eye Disorder, GERD/Reflux, Hearing Disorder / Deafness, Hyperlipidemia, Hypertension, Neurologic Disorder, Osteoarthritis (OA), Prostate Disorder, Renal Disease, Syncope Additional Past Medical History / Comment(s): spouse states "able to sign consents", pilonidal cyst, recent yeast infection to penis, IDDM type 1, bilateral legs/feet/arms and hand neuropathy, chronic renal disease, difficulty swallowing, RLS, factor V Leiden, early dementia, BPH, bilateral tinnitis, R eye retinal bleeds x2, chronic low back pain with bilateral sciatica which is worse on the right side, bilateral shoulder and cervical pain, possible TIAs (01/13), History of Any Multi-Drug Resistant Organisms: None Reported Past Surgical History: Adenoidectomy, Back Surgery, Heart Catheterization, Orthopedic Surgery, Tonsillectomy Additional Past Surgical History / Comment(s): Lumbar laminectomy, R knee cartildge surgery, bilateral carpal tunnel released, sen wrist dequevain surgery, R rotator cuff repair, L foot pins and plates, EGD, colonoscopy, R eye laser eye surgery for retinal bleeds, bilateral cataract removals/lens implants Past Anesthesia/Blood Transfusion Reactions: Motion Sickness Additional Past Anesthesia/Blood Transfusion Reaction / Comm: no hx blood transfusion Past Psychological History: Depression Additional Psychological History / Comment(s): Pt resides with his spouse and their adult son. Pt uses a walker prn. He drives. He is currently managing his own medications but admits this is getting more difficult. Smoking Status: Former smoker Past Alcohol Use History: None Reported Additional Past Alcohol Use History / Comment(s): Pt started smoking in 1962 and quit in 1987 Past Drug Use History: None Reported - Past Family History Brother(s) Family Medical History: Blood Disorder, Deep Vein Thrombosis (DVT) Mother Additional Family Medical History / Comment(s): Mother had palsey Father Family Medical History: COPD, Myocardial Infarction ([place]) Additional Family Medical History / Comment(s): Father of COPD/[place] at the age of 72 yrs. Medications and Allergies Home Medications Medication Instructions Recorded Confirmed Type Tamsulosin [Flomax] 0.4 mg PO DAILY 11/09/18 10/06/24 History Clopidogrel [Plavix] 75 mg PO DAILY 08/06/23 10/06/24 History Ergocalciferol [Vitamin D2 (1250 1,250 mcg PO WEEKLY 08/06/23 10/06/24 History Mcg = 49085 Iu)] Atorvastatin [Lipitor] 80 mg PO HS 30 Days #30 tab 08/07/23 10/06/24 Rx Memantine HCl 5 mg PO BID 08/27/24 10/06/24 History HYDROcodone/APAP 10-325MG [[place] 1 tab PO Q8H PRN 10/06/24 10/06/24 History 10-325] Insulin Glargine-Yfgn [Semglee 70 unit SQ DAILY 10/06/24 10/06/24 History (Yfgn) Pen] Metoprolol Tartrate [Lopressor] 25 mg PO BID 10/06/24 10/06/24 History Pantoprazole Sodium [Protonix] 40 mg PO BID 10/06/24 10/06/24 History Allergies Allergy/AdvReac Type Severity Reaction Status Date / Time No Known Allergies Allergy Verified 10/06/24 10:11 Physical Exam Vitals: Vital Signs Temp Pulse Pulse Resp BP BP Pulse Ox 10/06/24 07:46 98.0 F 87 16 160/72 97 10/06/24 01:35 98.0 F 84 18 167/75 98 07/16/25 00:30 98.2 F 89 18 176/73 96 10/05/24 22:41 74 11 L 171/88 97 10/05/24 21:04 98.4 F 68 16 145/81 99 Intake and Output 10/05/24 10/06/24 10/06/24 22:59 06:59 14:59 Output Total 500 Balance -500 Output: Urine 500 Other: # Voids 1 Weight 122.47 kg 122.47 kg Head normocephalic Neck supple Lungs clear to auscultation bilaterally no wheezing or crackles Heart regular rate and rhythm S1-S2, no rub or gallop Abdomen is soft nontender nondistended positive bowel sounds no hepatosplenomegaly Extremities no edema Neuro alert and orientated to 3 Results CBC & Chem 7: 10/07/24 05:33 10/07/24 05:33 Labs: Abnormal Lab Results - Last 24 Hours (Table) 10/05/24 10/05/24 10/05/24 Range/Units 21:18 21:18 21:18 MCH 33.0 H (27.0-32.0) pg APTT 20.3 L (22.0-30.0) sec Sodium 134 L (137-145) mmol/L Potassium 5.3 H (3.5-5.1) mmol/L Carbon Dioxide 20 L (22-30) mmol/L BUN 26 H (9-20) mg/dL Glucose 412 H (74-99) mg/dL POC Glucose (mg/dL) (70-110) mg/dL Urine Glucose (UA) (Negative) Urine Ketones (Negative) 10/05/24 10/05/24 10/06/24 Range/Units 22:50 23:57 00:36 MCH (27.0-32.0) pg APTT (22.0-30.0) sec Sodium (137-145) mmol/L Potassium (3.5-5.1) mmol/L Carbon Dioxide (22-30) mmol/L BUN (9-20) mg/dL Glucose (74-99) mg/dL POC Glucose (mg/dL) 318 H 348 H (70-110) mg/dL Urine Glucose (UA) 4+ H (Negative) Urine Ketones 2+ H (Negative) 10/06/24 10/06/24 10/06/24 Range/Units 02:07 05:54 11:30 MCH (27.0-32.0) pg APTT (22.0-30.0) sec Sodium (137-145) mmol/L Potassium (3.5-5.1) mmol/L Carbon Dioxide (22-30) mmol/L BUN 25 H (9-20) mg/dL Glucose 199 H (74-99) mg/dL POC Glucose (mg/dL) 284 H 237 H (70-110) mg/dL Urine Glucose (UA) (Negative) Urine Ketones (Negative) 10/06/24 Range/Units 11:35 MCH (27.0-32.0) pg APTT (22.0-30.0) sec Sodium (137-145) mmol/L Potassium (3.5-5.1) mmol/L Carbon Dioxide (22-30) mmol/L BUN (9-20) mg/dL Glucose (74-99) mg/dL POC Glucose (mg/dL) 245 H (70-110) mg/dL Urine Glucose (UA) (Negative) Urine Ketones (Negative) Assessment and Plan Assessment: 1. Status post fall 2. Left distal clavicle fracture distal. Orthopedic services consulted 3. History of diabetes mellitus type 1 4. History of pilonidal cyst removal 5. History of coronary artery disease 6. History of autonomic dysfunction 7. History of hyperlipidemia Thank you for this consultation we will continue to follow patient closely throughout stay Time with Patient: Greater than 30 (Greater than 60% of the total time spent in counseling and coordination of care)
--- NOTE | 2024-10-07 11:19 | P.PN ---
Subjective Progress Note Date: 10/07/24 Yury Brewer is a 74-year-old male patient who presented to the ER with left shoulder pain and neck pain after a fall patient apparently fell in bathroom but did not lose consciousness. X-ray of the left shoulder reported acute mild displaced left distal clavicle fracture patient was admitted to hospital under surgical services. Head CT was performed showing no acute intracranial process nonspecific white matter changes likely secondary to chronic small vessel ischemic disease no evidence of cervical spine fracture. Chest x-ray completed showing no acute cardiopulmonary disease. Pelvis x-ray completed showing no acute process. Lab work completed showing white blood cell 7.71, hemoglobin 1 3.1, creatinine 1.08 bun 25 AST 38 ALT 29. Current vital signs temp 98.1, height 65, respiratory rate 18, blood pressure 135/64 with pulse ox of 98% on room air. At this time patient is resting comfortably in bed arm in sling no plans for surgical intervention. Patient will likely need rehab upon discharge. On 10/07/2024 patient is alert and oriented x 3 patient complaining about pain to left arm and shoulder. Per case management discharge planning to [facility] patient will need inpatient stay until Friday. Patient admitted to surgical services. Current vital signs temp 98.1, heart rate 65, respiratory rate 18, blood pressure 135/64 with pulse ox 98% on room air. Patient denies chest pain or shortness of breath. Patient denies nausea vomiting or diarrhea. Patient denies any urinary burning frequency Objective - Vital Signs Vital signs: Vital Signs Temp 98.0 F 10/07/24 07:02 Pulse 57 L 10/07/24 07:02 Resp 17 10/07/24 07:02 BP 125/74 10/07/24 07:02 Pulse Ox 99 10/07/24 07:02 FiO2 Intake & Output 10/06/24 10/07/24 10/07/24 18:59 06:59 18:59 Weight 122.47 kg Other: Voiding Method Urinal Diaper # Voids 4 2 - Exam Head normocephalic Neck supple Lungs clear to auscultation bilaterally no wheezing or crackles Heart regular rate and rhythm S1-S2, no rub or gallop Abdomen is soft nontender nondistended positive bowel sounds no hepatosplenomegaly Extremities no edema Neuro alert and orientated to 3 - Labs CBC & Chem 7: 10/07/24 05:33 10/07/24 05:33 Labs: Abnormal Lab Results - Last 24 Hours (Table) 10/06/24 10/06/24 10/06/24 Range/Units 11:30 11:35 16:29 RBC (4.40-5.60) X 10*6/uL Hct (39.6-50.0) % BUN 25 H (9-20) mg/dL Glucose 199 H (74-99) mg/dL POC Glucose (mg/dL) 245 H 165 H (70-110) mg/dL AST (14-35) U/L Total Protein (6.2-8.2) g/dL Albumin (3.8-4.9) g/dL Albumin/Globulin Ratio (1.60-3.17) Ratio 10/06/24 10/07/24 10/07/24 Range/Units 20:09 05:33 05:33 RBC 4.15 L (4.40-5.60) X 10*6/uL Hct 39.3 L (39.6-50.0) % BUN (9-20) mg/dL Glucose 116 H (74-99) mg/dL POC Glucose (mg/dL) 147 H (70-110) mg/dL AST 38 H (14-35) U/L Total Protein 5.9 L (6.2-8.2) g/dL Albumin 3.4 L (3.8-4.9) g/dL Albumin/Globulin Ratio 1.36 L (1.60-3.17) Ratio 10/07/24 Range/Units 06:14 RBC (4.40-5.60) X 10*6/uL Hct (39.6-50.0) % BUN (9-20) mg/dL Glucose (74-99) mg/dL POC Glucose (mg/dL) 112 H (70-110) mg/dL AST (14-35) U/L Total Protein (6.2-8.2) g/dL Albumin (3.8-4.9) g/dL Albumin/Globulin Ratio (1.60-3.17) Ratio Assessment and Plan Assessment: 1. Status post fall 2. Left distal clavicle fracture distal. Orthopedic services consulted 3. History of diabetes mellitus type 1 4. History of pilonidal cyst removal 5. History of coronary artery disease 6. History of autonomic dysfunction 7. History of hyperlipidemia Thank you for this consultation we will continue to follow patient closely throughout stay A.m. labs ordered DVT prophylaxis Lovenox per surgical services Orthopedics and infectious disease services consulted Discharge planning to [facility]
[2024-10-07 11:49] LABS: Glucose,Whole Blood 152 mg/dL (70-110)
--- NOTE | 2024-10-07 13:43 | P.PN ---
Subjective Progress Note Date: 10/07/24 Principal diagnosis: Reason for follow-up is sacral wound Patient is a 74-year-old male with a past medical history significant for Blood Disorder, Coronary Artery Disease (CAD), CVA/TIA, Dementia, Diabetes Mellitus, Eye Disorder, GERD/Reflux, Hearing Disorder / Deafness, Hyperlipidemia, Hypertension, Neurologic Disorder, Osteoarthritis (OA), Prostate Disorder, Renal Disease, Syncope, recently did have a pilonidal sinus surgery done presenting to the hospital after the patient did have a fall ID consult because of nonhealing sacral wound. On today's evaluation that is 10/07/2024,the patient remains to be afebrile, patient is on room air not requiring supplemental oxygen and denies any shortness of breath no chest pain or cough.Patient denies having any nausea or vomiting, no abdominal pain and no diarrhea has been reported patient denies any worsening pain to the sacral wound area. The patient white count 7.71, creatinine is 1.1 Objective - Vital Signs Vital signs: Vital Signs Temp 98.0 F 10/07/24 07:02 Pulse 57 L 10/07/24 07:02 Resp 17 10/07/24 07:02 BP 125/74 10/07/24 07:02 Pulse Ox 99 10/07/24 07:02 FiO2 Intake & Output 10/06/24 10/07/24 10/07/24 18:59 06:59 18:59 Weight 122.47 kg Other: Voiding Method Urinal Diaper # Voids 4 2 - Exam GENERAL DESCRIPTION: An elderly male lying in bed in no distress RESPIRATORY SYSTEM: Unlabored breathing , decreased breath sounds at bases HEART: S1 S2 regular rate and rhythm , ABDOMEN: Soft , no tenderness EXTREMITIES: No edema feet - Labs CBC & Chem 7: 10/07/24 05:33 10/07/24 05:33 Labs: Abnormal Lab Results - Last 24 Hours (Table) 10/06/24 10/06/24 10/07/24 Range/Units 16:29 20:09 05:33 RBC (4.40-5.60) X 10*6/uL Hct (39.6-50.0) % Glucose 116 H (70-110) mg/dL POC Glucose (mg/dL) 165 H 147 H (70-110) mg/dL AST 38 H (14-35) U/L Total Protein 5.9 L (6.2-8.2) g/dL Albumin 3.4 L (3.8-4.9) g/dL Albumin/Globulin Ratio 1.36 L (1.60-3.17) Ratio 10/07/24 10/07/24 10/07/24 Range/Units 05:33 06:14 11:48 RBC 4.15 L (4.40-5.60) X 10*6/uL Hct 39.3 L (39.6-50.0) % Glucose (70-110) mg/dL POC Glucose (mg/dL) 112 H 152 H (70-110) mg/dL AST (14-35) U/L Total Protein (6.2-8.2) g/dL Albumin (3.8-4.9) g/dL Albumin/Globulin Ratio (1.60-3.17) Ratio Assessment and Plan (1) Wound of sacral region Current Visit: Yes Status: Acute Code(s): S31.000A - UNSP OPN WND LOW BACK AND PELV W/O PENET RETROPERITON, INIT SNOMED Code(s): 291397678 (2) Pilonidal cyst Current Visit: Yes Status: Acute Code(s): L05.91 - PILONIDAL CYST WITHOUT ABSCESS SNOMED Code(s): 60251453 Plan: 1patient with the open wound to the sacral area status post removal of the pilonidal cyst in this patient presented to the hospital after a fall and did have a left clavicular fracture patient did not have any fever patient wound base looks clean with no slough tissue no surrounding redness will recommend local wound care. 2-local wound care with Aquacel packing change q. 48-hour no need for systemic antibiotic at this point Dictation was produced using [employer] dictation software. please excuse any grammatical, word or spelling errors. Time with Patient: Less than 30
--- NOTE | 2024-10-07 15:16 | P.CNOR ---
History of Present Illness - [facility] Consult date: 10/06/24 Consult reason: fracture History of present illness: Patient is a 74-year-old male seen at bedside today in consultation for a left clavicle fracture. He was admitted through the emergency department yesterday following a fall. Patient states that he took a fall in his bathroom. He states that he got lightheaded prior to the fall. He is on blood thinners. He is not sure if he hit his head. Did not lose consciousness. Patient reporting pain in the left shoulder. Denies any numbness or tingling. Review of Systems All systems: negative Constitutional: Denies chills, Denies fever Eyes: denies blurred vision, denies pain Ears, nose, mouth and throat: Denies headache, Denies sore throat Cardiovascular: Denies chest pain, Denies shortness of breath Respiratory: Denies cough Gastrointestinal: Denies abdominal pain, Denies diarrhea, Denies nausea, Denies vomiting Musculoskeletal: Denies myalgias Integumentary: Denies pruritus, Denies rash Neurological: Denies numbness, Denies weakness Psychiatric: Denies anxiety, Denies depression Endocrine: Denies fatigue, Denies weight change Past Medical History Past Medical History: Blood Disorder, Coronary Artery Disease (CAD), CVA/TIA, Dementia, Diabetes Mellitus, Eye Disorder, GERD/Reflux, Hearing Disorder / Deafness, Hyperlipidemia, Hypertension, Neurologic Disorder, Osteoarthritis (OA), Prostate Disorder, Renal Disease, Syncope Additional Past Medical History / Comment(s): spouse states "able to sign consents", pilonidal cyst, recent yeast infection to penis, IDDM type 1, bilateral legs/feet/arms and hand neuropathy, chronic renal disease, difficulty swallowing, RLS, factor V Leiden, early dementia, BPH, bilateral tinnitis, R eye retinal bleeds x2, chronic low back pain with bilateral sciatica which is worse on the right side, bilateral shoulder and cervical pain, possible TIAs (01/13), History of Any Multi-Drug Resistant Organisms: None Reported Past Surgical History: Adenoidectomy, Back Surgery, Heart Catheterization, Orthopedic Surgery, Tonsillectomy Additional Past Surgical History / Comment(s): Lumbar laminectomy, R knee cartildge surgery, bilateral carpal tunnel released, sen wrist dequevain surgery, R rotator cuff repair, L foot pins and plates, EGD, colonoscopy, R eye laser eye surgery for retinal bleeds, bilateral cataract removals/lens implants Past Anesthesia/Blood Transfusion Reactions: Motion Sickness Additional Past Anesthesia/Blood Transfusion Reaction / Comm: no hx blood transfusion Past Psychological History: Depression Additional Psychological History / Comment(s): Pt resides with his spouse and their adult son. Pt uses a walker prn. He drives. He is currently managing his own medications but admits this is getting more difficult. Smoking Status: Former smoker Past Alcohol Use History: None Reported Additional Past Alcohol Use History / Comment(s): Pt started smoking in 1962 and quit in 1987 Past Drug Use History: None Reported - Past Family History Brother(s) Family Medical History: Blood Disorder, Deep Vein Thrombosis (DVT) Mother Additional Family Medical History / Comment(s): Mother had palsey Father Family Medical History: COPD, Myocardial Infarction ([place]) Additional Family Medical History / Comment(s): Father of COPD/[place] at the age of 72 yrs. Medications and Allergies Home Medications Medication Instructions Recorded Confirmed Type Tamsulosin [Flomax] 0.4 mg PO DAILY 11/09/18 10/06/24 History Clopidogrel [Plavix] 75 mg PO DAILY 08/06/23 10/06/24 History Ergocalciferol [Vitamin D2 (1250 1,250 mcg PO WEEKLY 08/06/23 10/06/24 History Mcg = 91328 Iu)] Atorvastatin [Lipitor] 80 mg PO HS 30 Days #30 tab 08/07/23 10/06/24 Rx Memantine HCl 5 mg PO BID 08/27/24 10/06/24 History HYDROcodone/APAP 10-325MG [[place] 1 tab PO Q8H PRN 10/06/24 10/06/24 History 10-325] Insulin Glargine-Yfgn [Semglee 70 unit SQ DAILY 10/06/24 10/06/24 History (Yfgn) Pen] Metoprolol Tartrate [Lopressor] 25 mg PO BID 10/06/24 10/06/24 History Pantoprazole Sodium [Protonix] 40 mg PO BID 10/06/24 10/06/24 History Allergies Allergy/AdvReac Type Severity Reaction Status Date / Time No Known Allergies Allergy Verified 10/06/24 10:11 Physical Examination C-Spine: Normal (No tenderness to palpation, Full flexion, extension and rotation without pain, negative Spurlings test) / Abnormal - Pain to palpation: Tender over the clavicle to palpation. Skin is intact. There is a bump deformity consistent with fracture. No tenting of the skin. Patient is not put through full shoulder exam due to recent fracture. Neurovascular status: There is an intact EPL, FPL, extensor indicis, hand intrinsics and the FDP to the small finger. Intact radial, median and ulnar nerve sensations as well as 2+ radial pulse and brisk capillary refill distally. Results minimal displaced fracture of left clavicle shaft - Labs Labs: Abnormal Lab Results - Last 24 Hours (Table) 10/05/24 10/05/24 10/05/24 Range/Units 21:18 21:18 21:18 MCH 33.0 H (27.0-32.0) pg APTT 20.3 L (22.0-30.0) sec Sodium 134 L (137-145) mmol/L Potassium 5.3 H (3.5-5.1) mmol/L Carbon Dioxide 20 L (22-30) mmol/L BUN 26 H (9-20) mg/dL Glucose 412 H (74-99) mg/dL POC Glucose (mg/dL) (70-110) mg/dL Urine Glucose (UA) (Negative) Urine Ketones (Negative) 10/05/24 10/05/24 10/06/24 Range/Units 22:50 23:57 00:36 MCH (27.0-32.0) pg APTT (22.0-30.0) sec Sodium (137-145) mmol/L Potassium (3.5-5.1) mmol/L Carbon Dioxide (22-30) mmol/L BUN (9-20) mg/dL Glucose (74-99) mg/dL POC Glucose (mg/dL) 318 H 348 H (70-110) mg/dL Urine Glucose (UA) 4+ H (Negative) Urine Ketones 2+ H (Negative) 10/06/24 10/06/24 10/06/24 Range/Units 02:07 05:54 11:30 MCH (27.0-32.0) pg APTT (22.0-30.0) sec Sodium (137-145) mmol/L Potassium (3.5-5.1) mmol/L Carbon Dioxide (22-30) mmol/L BUN 25 H (9-20) mg/dL Glucose 199 H (74-99) mg/dL POC Glucose (mg/dL) 284 H 237 H (70-110) mg/dL Urine Glucose (UA) (Negative) Urine Ketones (Negative) 10/06/24 10/06/24 Range/Units 11:35 16:29 MCH (27.0-32.0) pg APTT (22.0-30.0) sec Sodium (137-145) mmol/L Potassium (3.5-5.1) mmol/L Carbon Dioxide (22-30) mmol/L BUN (9-20) mg/dL Glucose (74-99) mg/dL POC Glucose (mg/dL) 245 H 165 H (70-110) mg/dL Urine Glucose (UA) (Negative) Urine Ketones (Negative) H & H 10/05/24 Range/Units 21:18 Hgb 14.7 (13.0-17.0) g/dL Hct 41.7 (39.6-50.0) % Coagulation 10/05/24 Range/Units 21:18 INR 1.0 (<1.2) Result Diagrams: 10/07/24 05:33 10/07/24 05:33 - Diagnostic results Shoulder x-ray: report reviewed, image reviewed Assessment and Plan (1) Clavicle fracture Narrative/Plan: No surgical intervention planned. Recommend sling, ice, pain management, f/u 1 week as outpatient Current Visit: Yes Status: Acute Priority: Medium Code(s): S42.009A - FRA CTURE OF UNSP PART OF UNSP CLAVICLE, INIT FOR CLOS FX SNOMED Code(s): 23977729 Time with Patient: Less than 30
[2024-10-07 16:44] LABS: Glucose,Whole Blood 299 mg/dL (70-110)
[2024-10-07] MEDS: HYDROcodone/APAP 10-325MG 1 EACH TAB PO PRN (17:56)
[2024-10-07 19:58] LABS: Glucose,Whole Blood 283 mg/dL (70-110)
[2024-10-08 06:05] LABS: Glucose,Whole Blood 218 mg/dL (70-110)
[2024-10-08 07:57] LABS: Basophils # (A) 0.02 X 10*3/uL (0.00-0.10); Basophils % (A) 0.3 %; Eosinophils # (A) 0.19 X 10*3/uL (0.04-0.35); Eosinophils % (A) 2.8 %; HCT 39.0 % (39.6-50.0); HGB 12.9 g/dL (13.0-17.0); Immature Grans, Automated 0.10 %; Lymphocytes # (A) 2.45 X 10*3/uL (0.90-5.00); Lymphocytes % (A) 36.7 %; MCH 31.2 pg (27.0-32.0); MCHC 33.1 g/dL (32.0-37.0); MCV 94.4 FL (80.0-97.0); Monocytes # (A) 0.60 X 10*3/uL (0.20-1.00); Monocytes % (A) 9.0 %; NRBC Per 100 WBC 0 X 10*3/uL (0.00-0.01); Neutrophils # (A) 3.41 X 10*3/uL (1.80-7.70); Neutrophils % (A) 51.1 %; Platelet Count 138 X 10*3/uL (140-440); RBC 4.13 X 10*6/uL (4.40-5.60); RDW 13.2 % (11.5-14.5); WBC 6.68 X 10*3/uL (4.50-10.00)
[2024-10-08 08:21] LABS: ALT 27 U/L (10-49); AST 40 U/L (14-35); Albumin 3.4 g/dL (3.8-4.9); Albumin/Globulin Ratio 1.31 Ratio (1.60-3.17); Alkaline Phosphatase 55 U/L (41-126); Anion Gap 9.70 mmol/L (4.00-12.00); BUN/Creat Ratio 22.20 Ratio (12.00-20.00); Blood Urea Nitrogen 22.2 mg/dL (9.0-27.0); Calcium 8.7 mg/dL (8.7-10.3); Carbon Dioxide 24.3 mmol/L (21.6-31.8); Chloride 103 mmol/L (96-109); Globulin 2.6 g/dL (1.6-3.3); Glucose 221 mg/dL (70-110); Potassium 4.7 mmol/L (3.5-5.5); Sodium 137 mmol/L (135-145); Total Protein 6.0 g/dL (6.2-8.2)
[2024-10-08] MEDS: LORATADINE 10 MG TAB PO SCH (09:28)
[2024-10-08] MEDS: DOCUSATE 100 MG CAP PO SCH (09:28)
[2024-10-08] MEDS: DAPAGLIFLOZIN PROPANEDIOL 10 MG TABLET PO SCH (09:28)
[2024-10-08] MEDS: ASPIRIN 81 MG PO SCH (09:28)
[2024-10-08 11:41] LABS: Glucose,Whole Blood 274 mg/dL (70-110)
--- NOTE | 2024-10-08 14:03 | P.PN ---
Subjective Progress Note Date: 10/08/24 Yury Brewer is a 74-year-old male patient who presented to the ER with left shoulder pain and neck pain after a fall patient apparently fell in bathroom but did not lose consciousness. X-ray of the left shoulder reported acute mild displaced left distal clavicle fracture patient was admitted to hospital under surgical services. Head CT was performed showing no acute intracranial process nonspecific white matter changes likely secondary to chronic small vessel ischemic disease no evidence of cervical spine fracture. Chest x-ray completed showing no acute cardiopulmonary disease. Pelvis x-ray completed showing no acute process. Lab work completed showing white blood cell 7.71, hemoglobin 1 3.1, creatinine 1.08 bun 25 AST 38 ALT 29. Current vital signs temp 98.1, height 65, respiratory rate 18, blood pressure 135/64 with pulse ox of 98% on room air. At this time patient is resting comfortably in bed arm in sling no plans for surgical intervention. Patient will likely need rehab upon discharge. On 10/07/2024 patient is alert and oriented x 3 patient complaining about pain to left arm and shoulder. Per case management discharge planning to [facility] patient will need inpatient stay until Friday. Patient admitted to surgical services. Current vital signs temp 98.1, heart rate 65, respiratory rate 18, blood pressure 135/64 with pulse ox 98% on room air. Patient denies chest pain or shortness of breath. Patient denies nausea vomiting or diarrhea. Patient denies any urinary burning frequency. On 10/08/2024 patient was seen and examined on the medical floor he is alert and oriented x 3 in no apparent distress, he is complaining of left shoulder pain otherwise he denies any complaints there is no fever or chills no headache or dizziness no chest pain no shortness of breath no cough no nausea or vomiting no abdominal pain no diarrhea no urinary symptoms. Input from infectious disease in regard to coccyx open wound reviewed. Objective - Vital Signs Vital signs: Vital Signs Temp 97.8 F 10/08/24 06:47 Pulse 52 L 10/08/24 06:47 Resp 18 10/08/24 06:47 BP 127/62 10/08/24 06:47 Pulse Ox 99 10/08/24 06:47 FiO2 Intake & Output 10/07/24 10/08/24 10/08/24 18:59 06:59 18:59 Other: Voiding Method Urinal Urinal Diaper Diaper # Voids 4 4 # Bowel Movements 0 - Exam Head normocephalic Neck supple Lungs clear to auscultation bilaterally no wheezing or crackles Heart regular rate and rhythm S1-S2, no rub or gallop Abdomen is soft nontender nondistended positive bowel sounds no hepatosplenomegaly Extremities no edema Neuro alert and orientated to 3 - Labs CBC & Chem 7: 10/08/24 04:32 10/08/24 04:32 Labs: Abnormal Lab Results - Last 24 Hours (Table) 10/07/24 10/07/24 10/08/24 Range/Units 16:42 19:57 04:32 RBC 4.13 L (4.40-5.60) X 10*6/uL Hgb 12.9 L (13.0-17.0) g/dL Hct 39.0 L (39.6-50.0) % Plt Count 138 L (140-440) X 10*3/uL BUN/Creatinine Ratio (12.00-20.00) Ratio Glucose (70-110) mg/dL POC Glucose (mg/dL) 299 H 283 H (70-110) mg/dL AST (14-35) U/L Total Protein (6.2-8.2) g/dL Albumin (3.8-4.9) g/dL Albumin/Globulin Ratio (1.60-3.17) Ratio 10/08/24 10/08/24 10/08/24 Range/Units 04:32 06:03 11:40 RBC (4.40-5.60) X 10*6/uL Hgb (13.0-17.0) g/dL Hct (39.6-50.0) % Plt Count (140-440) X 10*3/uL BUN/Creatinine Ratio 22.20 H (12.00-20.00) Ratio Glucose 221 H (70-110) mg/dL POC Glucose (mg/dL) 218 H 274 H (70-110) mg/dL AST 40 H (14-35) U/L Total Protein 6.0 L (6.2-8.2) g/dL Albumin 3.4 L (3.8-4.9) g/dL Albumin/Globulin Ratio 1.31 L (1.60-3.17) Ratio Assessment and Plan Assessment: 1. Status post fall 2. Left distal clavicle fracture distal. Orthopedic services consulted 3. History of diabetes mellitus type 1 4. History of pilonidal cyst removal 5. History of coronary artery disease 6. History of autonomic dysfunction 7. History of hyperlipidemia Thank you for this consultation we will continue to follow patient closely throughout stay A.m. labs ordered DVT prophylaxis Lovenox per surgical services Orthopedics and infectious disease services consulted Discharge planning to [facility]
--- NOTE | 2024-10-08 15:29 | P.PN ---
Subjective Progress Note Date: 10/08/24 Principal diagnosis: Reason for follow-up is sacral wound Patient is a 74-year-old male with a past medical history significant for Blood Disorder, Coronary Artery Disease (CAD), CVA/TIA, Dementia, Diabetes Mellitus, Eye Disorder, GERD/Reflux, Hearing Disorder / Deafness, Hyperlipidemia, Hypertension, Neurologic Disorder, Osteoarthritis (OA), Prostate Disorder, Renal Disease, Syncope, recently did have a pilonidal sinus surgery done presenting to the hospital after the patient did have a fall ID consult because of nonhealing sacral wound. On today's evaluation that is 10/08/2024, the patient continues to be afebrile, the patient is on room air and breathing comfortably, the Pt denies having any chest pain or cough, the patient denies having any abdominal pain no vomiting or any diarrhea denies pain to the sacral wound has been complaining of pain mostly to the left shoulder area. Patient white count 6.68, creatinine 1.0 Objective - Vital Signs Vital signs: Vital Signs Temp 97.8 F 10/08/24 06:47 Pulse 52 L 10/08/24 06:47 Resp 18 10/08/24 06:47 BP 127/62 10/08/24 06:47 Pulse Ox 99 10/08/24 06:47 FiO2 Intake & Output 10/07/24 10/08/24 10/08/24 18:59 06:59 18:59 Other: Voiding Method Urinal Urinal Diaper Diaper # Voids 4 4 # Bowel Movements 0 - Exam GENERAL DESCRIPTION: An elderly male lying in bed in no distress RESPIRATORY SYSTEM: Unlabored breathing , decreased breath sounds at bases HEART: S1 S2 regular rate and rhythm , ABDOMEN: Soft , no tenderness EXTREMITIES: No edema feet - Labs CBC & Chem 7: 10/08/24 04:32 10/08/24 04:32 Labs: Abnormal Lab Results - Last 24 Hours (Table) 10/07/24 10/07/24 10/08/24 Range/Units 16:42 19:57 04:32 RBC 4.13 L (4.40-5.60) X 10*6/uL Hgb 12.9 L (13.0-17.0) g/dL Hct 39.0 L (39.6-50.0) % Plt Count 138 L (140-440) X 10*3/uL BUN/Creatinine Ratio (12.00-20.00) Ratio Glucose (70-110) mg/dL POC Glucose (mg/dL) 299 H 283 H (70-110) mg/dL AST (14-35) U/L Total Protein (6.2-8.2) g/dL Albumin (3.8-4.9) g/dL Albumin/Globulin Ratio (1.60-3.17) Ratio 10/08/24 10/08/24 10/08/24 Range/Units 04:32 06:03 11:40 RBC (4.40-5.60) X 10*6/uL Hgb (13.0-17.0) g/dL Hct (39.6-50.0) % Plt Count (140-440) X 10*3/uL BUN/Creatinine Ratio 22.20 H (12.00-20.00) Ratio Glucose 221 H (70-110) mg/dL POC Glucose (mg/dL) 218 H 274 H (70-110) mg/dL AST 40 H (14-35) U/L Total Protein 6.0 L (6.2-8.2) g/dL Albumin 3.4 L (3.8-4.9) g/dL Albumin/Globulin Ratio 1.31 L (1.60-3.17) Ratio Assessment and Plan (1) Wound of sacral region Current Visit: Yes Status: Acute Code(s): S31.000A - UNSP OPN WND LOW BACK AND PELV W/O PENET RETROPERITON, INIT SNOMED Code(s): 380527141 (2) Pilonidal cyst Current Visit: Yes Status: Acute Code(s): L05.91 - PILONIDAL CYST WITHOUT ABSCESS SNOMED Code(s): 25096539 Plan: 1patient with the open wound to the sacral area status post removal of the pilonidal cyst in this patient presented to the hospital after a fall and did have a left clavicular fracture patient did not have any fever patient wound base looks clean with no slough tissue no surrounding redness to be suspicious for cellulitis/wound infection 2-patient to continue local wound care with Aquacel packing change q. 48-hour and will monitor closely off antibiotics Dictation was produced using [employer] dictation software. please excuse any g rammatical, word or spelling errors. Time with Patient: Less than 30
[2024-10-08 16:24] LABS: Glucose,Whole Blood 254 mg/dL (70-110)
[2024-10-08 20:26] LABS: Glucose,Whole Blood 265 mg/dL (70-110)
--- NOTE | 2024-10-08 21:16 | P.PN ---
Subjective Patient seen and evaluated at bedside. Patient doing well, Complaining of clavicle pain. Objective - Vital Signs Vital signs: Vital Signs Temp 97.7 F 10/08/24 19:09 Pulse 68 10/08/24 19:09 Resp 17 10/08/24 19:09 BP 152/79 10/08/24 19:09 Pulse Ox 98 10/08/24 19:09 FiO2 Intake & Output 10/08/24 10/08/24 10/09/24 06:59 18:59 06:59 Other: Voiding Method Urinal Urinal Toilet Diaper Diaper Diaper # Voids 4 4 # Bowel Movements 0 - Exam gen: nad cv: rrr pul: non labored left shoulder pain abd: soft, non distended, non tender to palpation, no guard or rebound tenderness - Labs CBC & Chem 7: 10/08/24 04:32 10/08/24 04:32 Labs: Abnormal Lab Results - Last 24 Hours (Table) 10/08/24 10/08/24 10/08/24 Range/Units 04:32 04:32 06:03 RBC 4.13 L (4.40-5.60) X 10*6/uL Hgb 12.9 L (13.0-17.0) g/dL Hct 39.0 L (39.6-50.0) % Plt Count 138 L (140-440) X 10*3/uL BUN/Creatinine Ratio 22.20 H (12.00-20.00) Ratio Glucose 221 H (70-110) mg/dL POC Glucose (mg/dL) 218 H (70-110) mg/dL AST 40 H (14-35) U/L Total Protein 6.0 L (6.2-8.2) g/dL Albumin 3.4 L (3.8-4.9) g/dL Albumin/Globulin Ratio 1.31 L (1.60-3.17) Ratio 10/08/24 10/08/24 10/08/24 Range/Units 11:40 16:22 20:24 RBC (4.40-5.60) X 10*6/uL Hgb (13.0-17.0) g/dL Hct (39.6-50.0) % Plt Count (140-440) X 10*3/uL BUN/Creatinine Ratio (12.00-20.00) Ratio Glucose (70-110) mg/dL POC Glucose (mg/dL) 274 H 254 H 265 H (70-110) mg/dL AST (14-35) U/L Total Protein (6.2-8.2) g/dL Albumin (3.8-4.9) g/dL Albumin/Globulin Ratio (1.60-3.17) Ratio
[2024-10-09 06:06] LABS: Glucose,Whole Blood 181 mg/dL (70-110)
[2024-10-09 07:28] VITALS: RESP 18
[2024-10-09 08:53] LABS: Basophils # (A) 0.02 X 10*3/uL (0.00-0.10); Basophils % (A) 0.3 %; Eosinophils # (A) 0.20 X 10*3/uL (0.04-0.35); Eosinophils % (A) 2.9 %; HCT 41.9 % (39.6-50.0); HGB 13.8 g/dL (13.0-17.0); Immature Grans, Automated 0.10 %; Lymphocytes # (A) 2.41 X 10*3/uL (0.90-5.00); Lymphocytes % (A) 35.4 %; MCH 31.5 pg (27.0-32.0); MCHC 32.9 g/dL (32.0-37.0); MCV 95.7 FL (80.0-97.0); Monocytes # (A) 0.54 X 10*3/uL (0.20-1.00); Monocytes % (A) 7.9 %; NRBC Per 100 WBC 0 X 10*3/uL (0.00-0.01); Neutrophils # (A) 3.63 X 10*3/uL (1.80-7.70); Neutrophils % (A) 53.4 %; Platelet Count 132 X 10*3/uL (140-440); RBC 4.38 X 10*6/uL (4.40-5.60); RDW 13.2 % (11.5-14.5); WBC 6.81 X 10*3/uL (4.50-10.00)
[2024-10-09 09:08] LABS: ALT 29 U/L (10-49); AST 39 U/L (14-35); Albumin 3.5 g/dL (3.8-4.9); Albumin/Globulin Ratio 1.30 Ratio (1.60-3.17); Alkaline Phosphatase 61 U/L (41-126); Anion Gap 10.20 mmol/L (4.00-12.00); BUN/Creat Ratio 18.00 Ratio (12.00-20.00); Blood Urea Nitrogen 18.0 mg/dL (9.0-27.0); Calcium 8.9 mg/dL (8.7-10.3); Carbon Dioxide 24.8 mmol/L (21.6-31.8); Chloride 98 mmol/L (96-109); Globulin 2.7 g/dL (1.6-3.3); Glucose 184 mg/dL (70-110); Potassium 4.5 mmol/L (3.5-5.5); Sodium 133 mmol/L (135-145); Total Protein 6.2 g/dL (6.2-8.2)
[2024-10-09 11:33] LABS: Glucose,Whole Blood 385 mg/dL (70-110)
--- NOTE | 2024-10-09 14:23 | P.DS ---
Providers Date of admission: 10/06/24 10:56 Attending physician: Anny Roque DO Consults: 10/05/24 23:53 Consult Physician Routine Consulting Provider: Ej Gibson Consult Reason/Comments: medical managment Do you want consulting provider notified?: Yes, Notify in am Consult Physician Routine Consulting Provider: Phong Owens Consult Reason/Comments: clavicle fx Do you want consulting provider notified?: Yes, Notify in am 10/06/24 14:41 Consult Physician Routine Consulting Provider: Molina Orellana Consult Reason/Comments: Coccyx wound Do you want consulting provider notified?: Yes Primary care physician: Ej Gibson [facility] Course: Patient was admitted after fall. Imaging revealed clavicle fracture. Patient underwent physical therapy and non op management. Discharge to rehab facility. Patient Condition at Discharge: Stable Plan - Discharge Summary Discharge Rx Participant: No New Discharge Prescriptions: No Action Tamsulosin [Flomax] 0.4 mg PO DAILY Clopidogrel [Plavix] 75 mg PO DAILY Ergocalciferol [Vitamin D2 (1250 Mcg = 95229 Iu)] 1,250 mcg PO WEEKLY Memantine HCl 5 mg PO BID Pantoprazole Sodium [Protonix] 40 mg PO BID Atorvastatin [Lipitor] 80 mg PO HS 30 Days #30 tab Metoprolol Tartrate [Lopressor] 25 mg PO BID HYDROcodone/APAP 10-325MG [[place] 10-325] 1 tab PO Q8H PRN PRN Reason: Pain Insulin Glargine-Yfgn [Semglee (Yfgn) Pen] 70 unit SQ DAILY Discharge Medication List Tamsulosin [Flomax] 0.4 mg PO DAILY 11/09/18 [History] Clopidogrel [Plavix] 75 mg PO DAILY 08/06/23 [History] Ergocalciferol [Vitamin D2 (1250 Mcg = 70787 Iu)] 1,250 mcg PO WEEKLY 08/06/23 [History] Atorvastatin [Lipitor] 80 mg PO HS 30 Days #30 tab 08/07/23 [Rx] Memantine HCl 5 mg PO BID 08/27/24 [History] HYDROcodone/APAP 10-325MG [[place] 10-325] 1 tab PO Q8H PRN 10/06/24 [History] Insulin Glargine-Yfgn [Semglee (Yfgn) Pen] 70 unit SQ DAILY 07/16/25 [History] Metoprolol Tartrate [Lopressor] 25 mg PO BID 10/06/24 [History] Pantoprazole Sodium [Protonix] 40 mg PO BID 10/06/24 [History] Follow up Appointment(s)/Referral(s): Leno Tolbert PAC [PHYSICIAN FIELD MECHANIC] - 1 Week Ej Gibson MD [Primary Care Provider] - 1-2 days Activity/Diet/Wound Care/Special Instructions: sling prn ice, take meds as directed f/u in office
--- NOTE | 2024-10-09 14:42 | P.PN ---
Subjective Progress Note Date: 10/09/24 Yury Brewer is a 74-year-old male patient who presented to the ER with left shoulder pain and neck pain after a fall patient apparently fell in bathroom but did not lose consciousness. X-ray of the left shoulder reported acute mild displaced left distal clavicle fracture patient was admitted to hospital under surgical services. Head CT was performed showing no acute intracranial process nonspecific white matter changes likely secondary to chronic small vessel ischemic disease no evidence of cervical spine fracture. Chest x-ray completed showing no acute cardiopulmonary disease. Pelvis x-ray completed showing no acute process. Lab work completed showing white blood cell 7.71, hemoglobin 1 3.1, creatinine 1.08 bun 25 AST 38 ALT 29. Current vital signs temp 98.1, height 65, respiratory rate 18, blood pressure 135/64 with pulse ox of 98% on room air. At this time patient is resting comfortably in bed arm in sling no plans for surgical intervention. Patient will likely need rehab upon discharge. On 10/07/2024 patient is alert and oriented x 3 patient complaining about pain to left arm and shoulder. Per case management discharge planning to [facility] patient will need inpatient stay until Friday. Patient admitted to surgical services. Current vital signs temp 98.1, heart rate 65, respiratory rate 18, blood pressure 135/64 with pulse ox 98% on room air. Patient denies chest pain or shortness of breath. Patient denies nausea vomiting or diarrhea. Patient denies any urinary burning frequency. On 10/08/2024 patient was seen and examined on the medical floor he is alert and oriented x 3 in no apparent distress, he is complaining of left shoulder pain otherwise he denies any complaints there is no fever or chills no headache or dizziness no chest pain no shortness of breath no cough no nausea or vomiting no abdominal pain no diarrhea no urinary symptoms. Input from infectious disease in regard to coccyx open wound reviewed. On 10/09/2024 patient was seen and examined on the medical floor he is alert and oriented x 3 in no apparent distress, he is complaining of left shoulder pain otherwise he denies any complaints there is no fever or chills no headache or dizziness no chest pain no shortness of breath no cough no nausea or vomiting no abdominal pain no diarrhea no urinary symptoms. Patient is scheduled to be transferred to [facility] on the [facility] for rehab today. Discharge is being done by the admitting service General Surgery. Objective - Vital Signs Vital signs: Vital Signs Temp 98.6 F 10/09/24 06:50 Pulse 90 10/09/24 06:50 Resp 18 10/09/24 06:50 BP 115/64 10/09/24 06:50 Pulse Ox 97 10/09/24 06:50 FiO2 Intake & Output 10/08/24 10/09/24 10/09/24 18:59 06:59 18:59 Other: Voiding Method Urinal Toilet Toilet Diaper Diaper Diaper # Voids 4 3 # Bowel Movements 0 - Exam Head normocephalic Neck supple Lungs clear to auscultation bilaterally no wheezing or crackles Heart regular rate and rhythm S1-S2, no rub or gallop Abdomen is soft nontender nondistended positive bowel sounds no hepatosplenomegaly Extremities no edema Neuro alert and orientated to 3 - Labs CBC & Chem 7: 10/09/24 02:48 10/09/24 02:48 Labs: Abnormal Lab Results - Last 24 Hours (Table) 10/08/24 10/08/24 10/08/24 Range/Units 11:40 16:22 20:24 RBC (4.40-5.60) X 10*6/uL Plt Count (140-440) X 10*3/uL Sodium (135-145) mmol/L Glucose (70-110) mg/dL POC Glucose (mg/dL) 274 H 254 H 265 H (70-110) mg/dL AST (14-35) U/L Albumin (3.8-4.9) g/dL Albumin/Globulin Ratio (1.60-3.17) Ratio 10/09/24 10/09/24 10/09/24 Range/Units 02:48 02:48 06:05 RBC 4.38 L (4.40-5.60) X 10*6/uL Plt Count 132 L (140-440) X 10*3/uL Sodium 133 L (135-145) mmol/L Glucose 184 H (70-110) mg/dL POC Glucose (mg/dL) 181 H (70-110) mg/dL AST 39 H (14-35) U/L Albumin 3.5 L (3.8-4.9) g/dL Albumin/Globulin Ratio 1.30 L (1.60-3.17) Ratio Assessment and Plan Assessment: 1. Status post fall 2. Left distal clavicle fracture distal. Orthopedic services consulted 3. History of diabetes mellitus type 1 4. History of pilonidal cyst removal 5. History of coronary artery disease 6. History of autonomic dysfunction 7. History of hyperlipidemia Thank you for this consultation we will continue to follow patient closely throughout stay A.m. labs ordered DVT prophylaxis Lovenox per surgical services Orthopedics and infectious disease services consulted Discharge planning to [facility]
--- NOTE | 2024-10-09 14:59 | P.PN ---
Subjective Progress Note Date: 10/09/24 Principal diagnosis: Reason for follow-up is sacral wound Patient is a 74-year-old male with a past medical history significant for Blood Disorder, Coronary Artery Disease (CAD), CVA/TIA, Dementia, Diabetes Mellitus, Eye Disorder, GERD/Reflux, Hearing Disorder / Deafness, Hyperlipidemia, Hypertension, Neurologic Disorder, Osteoarthritis (OA), Prostate Disorder, Renal Disease, Syncope, recently did have a pilonidal sinus surgery done presenting to the hospital after the patient did have a fall ID consult because of nonhealing sacral wound. On today's evaluation that is 10/09/2024, patient did have a temperature of 98.6 F this morning and denies having any chills, patient is on room air and breathing comfortably no chest pain or cough, the patient did not have any nausea vomiting abdominal pain or any diarrhea has been complaining mostly pain to the left shoulder area denies pain to the sacral wound or any drainage. Patient white count 6.81, creatinine is 1.0 no culture done this admission Objective - Vital Signs Vital signs: Vital Signs Temp 98.6 F 10/09/24 06:50 Pulse 90 10/09/24 06:50 Resp 18 10/09/24 06:50 BP 115/64 10/09/24 06:50 Pulse Ox 97 10/09/24 06:50 FiO2 Intake & Output 10/08/24 10/09/24 10/09/24 18:59 06:59 18:59 Other: Voiding Method Urinal Toilet Toilet Diaper Diaper Diaper # Voids 4 3 # Bowel Movements 0 - Exam GENERAL DESCRIPTION: An elderly male lying in bed in no distress RESPIRATORY SYSTEM: Unlabored breathing , decreased breath sounds at bases HEART: S1 S2 regular rate and rhythm , ABDOMEN: Soft , no tenderness EXTREMITIES: No edema feet - Labs CBC & Chem 7: 10/09/24 02:48 10/09/24 02:48 Labs: Abnormal Lab Results - Last 24 Hours (Table) 10/08/24 10/08/24 10/09/24 Range/Units 16:22 20:24 02:48 RBC 4.38 L (4.40-5.60) X 10*6/uL Plt Count 132 L (140-440) X 10*3/uL Sodium (135-145) mmol/L Glucose (70-110) mg/dL POC Glucose (mg/dL) 254 H 265 H (70-110) mg/dL AST (14-35) U/L Albumin (3.8-4.9) g/dL Albumin/Globulin Ratio (1.60-3.17) Ratio 10/09/24 10/09/24 10/09/24 Range/Units 02:48 06:05 11:31 RBC (4.40-5.60) X 10*6/uL Plt Count (140-440) X 10*3/uL Sodium 133 L (135-145) mmol/L Glucose 184 H (70-110) mg/dL POC Glucose (mg/dL) 181 H 385 H (70-110) mg/dL AST 39 H (14-35) U/L Albumin 3.5 L (3.8-4.9) g/dL Albumin/Globulin Ratio 1.30 L (1.60-3.17) Ratio Assessment and Plan (1) Wound of sacral region Current Visit: Yes Status: Acute Code(s): S31.000A - UNSP OPN WND LOW BACK AND PELV W/O PENET RETROPERITON, INIT SNOMED Code(s): 755604870 (2) Pilonidal cyst Current Visit: Yes Status: Acute Code(s): L05.91 - PILONIDAL CYST WITHOUT ABSCESS SNOMED Code(s): 74040260 Plan: 1patient with the open wound to the sacral area status post removal of the pilonidal cyst in this patient presented to the hospital after a fall and did have a left clavicular fracture patient did not have any fever patient wound base looks clean with no slough tissue no surrounding redness to be suspicious for cellulitis/wound infection 2-patient advised to continue local wound care with Aquacel packing change q. 48-hour and no need for any antibiotics on discharge Dictation was produced using [employer] dictation software. please excuse any grammatical, word or spelling errors. Time with Patient: Less than 30
[2024-10-09 15:56] VITALS: BP 169/73; PULSE 65; TEMP 98.5
[2024-10-13] MEDS ORDERED: ERGOCALCIFEROL 1,250 MCG (50,000 IU) CAPSULE PO SCH (09:00)
== END 2024-10-09 16:38 | DRG 563 ==
LOC: EC 20:37 → 4SSUR 23:53 → OBSVTOIN 10-06 10:56 → 4SSUR 10-06 22:18
PROVIDERS: ADMIT Surgery; ATTEND Surgery
DX: S42.032A Displaced fracture of lateral end of left clavicle, initial encounter for closed fracture (principal); T81.89XA Other complications of procedures, not elsewhere classified, initial encounter; D68.51 Activated protein C resistance; E10.40 Type 1 diabetes mellitus with diabetic neuropathy, unspecified; E10.43 Type 1 diabetes mellitus with diabetic autonomic (poly)neuropathy; E10.22 Type 1 diabetes mellitus with diabetic chronic kidney disease; F03.93 Unspecified dementia, unspecified severity, with mood disturbance; F32.A Depression, unspecified; G25.81 Restless legs syndrome; N18.9 Chronic kidney disease, unspecified; I12.9 Hypertensive chronic kidney disease with stage 1 through stage 4 chronic kidney disease, or unspecified chronic kidney disease; E10.65 Type 1 diabetes mellitus with hyperglycemia; Z79.4 Long term (current) use of insulin; E78.5 Hyperlipidemia, unspecified; M54.41 Lumbago with sciatica, right side; M54.42 Lumbago with sciatica, left side; G89.29 Other chronic pain; K21.9 Gastro-esophageal reflux disease without esophagitis; M54.2 Cervicalgia; I25.10 Atherosclerotic heart disease of native coronary artery without angina pectoris; N40.0 Benign prostatic hyperplasia without lower urinary tract symptoms; H91.90 Unspecified hearing loss, unspecified ear; Z79.02 Long term (current) use of antithrombotics/antiplatelets; Z79.899 Other long term (current) drug therapy; Z87.891 Personal history of nicotine dependence; Z86.73 Personal history of transient ischemic attack (TIA), and cerebral infarction without residual deficits; W19.XXXA Unspecified fall, initial encounter; Y92.002 Bathroom of unspecified non-institutional (private) residence as the place of occurrence of the external cause
CPT/HCPCS: 36415; 70450; 71045; 72125; 72170; 80048; 80053; 81003; 82009; 84484; 85025; 85610; 85730; 93005; 96361; 96374; 96376; 99285

== ENCOUNTER 2024-10-13 16:30 | Emergency (ER) | payer MEDICARE, OTHER ==
[2024-10-13 16:42] VITALS: RESP 20
--- NOTE | 2024-10-13 17:16 | ED ---
Fall HPI <León Ramsay - Last Filed: 10/13/24 23:00> - General Source: patient, EMS, RN notes reviewed Mode of arrival: EMS Limitations: no limitations - History of Present Illness MD Complaint: fall Onset/Timin -: hour(s) Fall From: standing Fall Witnessed: yes, by family Place Fall Occurred: home Loss of Consciousness: none Prolonged Down Time?: no Symptoms Prior to Fall: none Location: chest Location - Extremities: Left: Shoulder Severity scale (1-10): 8 Context: tripped/slipped, history of frequent falls <Bret Rosa - Last Filed: 10/14/24 21:08> - General Chief Complaint: Fall Stated Complaint: Fall-Left Shoulder Time Seen by Provider: 10/13/24 16:47 - History of Present Illness Initial Comments: This is a 74-year-old male with history including CAD, dementia, CVA, DM and renal disease presenting with via EMS for fall with left shoulder injury/pain (10/31) occurring this afternoon. Patient states he was making his w ay to the bathroom through the kitchen using his walker when he felt weak, resting his forehead on the table before losing his strength and falling to the floor. Patient denies striking his head, headache, neck pain, loss of consciousness. Patient endorses striking his left shoulder with subsequent left shoulder pain. Patient states he suffered a fall last week, breaking his left clavicle at the time, stating he has been unable to wear his sling since it was smaller and comfort allowed. Patient last endorses use of Lamar at 1300. Denies distal paresthesia or weakness. Endorses some pain in his shoulder and upper chest as well. (Bret Rosa) - Related Data Home Medications Medication Instructions Recorded Confirmed Tamsulosin [Flomax] 0.4 mg PO DAILY 11/09/18 10/14/24 Clopidogrel [Plavix] 75 mg PO DAILY 08/06/23 10/14/24 Ergocalciferol [Vitamin D2 (1250 1,250 mcg PO WEEKLY 08/06/23 10/14/24 Mcg = 62174 Iu)] Memantine HCl 5 mg PO BID 08/27/24 10/14/24 HYDROcodone/APAP 10-325MG [Lamar 1 tab PO Q8H PRN 10/06/24 10/14/24 10-325] Insulin Glargine-Yfgn [Semglee 75 unit SQ DAILY 10/06/24 10/14/24 (Yfgn) Pen] Metoprolol Tartrate [Lopressor] 25 mg PO BID 10/06/24 10/14/24 Pantoprazole Sodium [Protonix] 40 mg PO BID 10/06/24 10/14/24 Previous Rx's Medication Instructions Recorded Atorvastatin [Lipitor] 80 mg PO HS 30 Days #30 tab 08/07/23 Allergies Allergy/AdvReac Type Severity Reaction Status Date / Time No Known Allergies Allergy Verified 10/14/24 07:37 Review of Systems ROS Other: All systems not noted in ROS Statement are negative. <León Ramsay - Last Filed: 10/13/24 23:00> ROS Other: All systems not noted in ROS Statement are negative. <Bret Rosa - Last Filed: 10/14/24 21:08> ROS Statement: Those systems with pertinent positive or pertinent negative responses have been documented in the HPI. Past Medical History Past Medical History: Blood Disorder, Coronary Artery Disease (CAD), CVA/TIA, Dementia, Diabetes Mellitus, Eye Disorder, GERD/Reflux, Hearing Disorder / Deafness, Hyperlipidemia, Hypertension, Neurologic Disorder, Osteoarthritis (OA), Prostate Disorder, Renal Disease, Syncope Additional Past Medical History / Comment(s): spouse states "able to sign consents", pilonidal cyst, recent yeast infection to penis, IDDM type 1, bilateral legs/feet/arms and hand neuropathy, chronic renal disease, difficulty swallowing, RLS, factor V Leiden, early dementia, BPH, bilateral tinnitis, R eye retinal bleeds x2, chronic low back pain with bilateral sciatica which is worse on the right side, bilateral shoulder and cervical pain, possible TIAs (01/13), History of Any Multi-Drug Resistant Organisms: None Reported Past Surgical History: Adenoidectomy, Back Surgery, Heart Catheterization, Orthopedic Surgery, Tonsillectomy Additional Past Surgical History / Comment(s): Lumbar laminectomy, R knee cartildge surgery, bilateral carpal tunnel released, sen wrist dequevain surgery, R rotator cuff repair, L foot pins and plates, EGD, colonoscopy, R eye laser eye surgery for retinal bleeds, bilateral cataract removals/lens implants Past Anesthesia/Blood Transfusion Reactions: Motion Sickness Additional Past Anesthesia/Blood Transfusion Reaction / Comment(s): no hx blood transfusion Past Psychological History: Depression Smoking Status: Former smoker Past Alcohol Use History: None Reported Past Drug Use History: None Reported - Past Family History Brother(s) Family Medical History: Blood Disorder, Deep Vein Thrombosis (DVT) Mother Additional Family Medical History / Comment(s): Mother had palsey Father Family Medical History: COPD, Myocardial Infarction ([place]) Additional Family Medical History / Comment(s): Father of COPD/[place] at the age of 72 yrs. <Bret Rosa - Last Filed: 10/14/24 21:08> General Exam General appearance: alert, in no apparent distress Head exam: Present: atraumatic, normocephalic, normal inspection Eye exam: Present: normal appearance, PERRL, EOMI. Absent: scleral icterus, conjunctival injection, periorbital swelling ENT exam: Present: normal exam, mucous membranes moist Neck exam: Present: normal inspection. Absent: tenderness, meningismus, lymphadenopathy Respiratory exam: Present: normal lung sounds bilaterally, chest wall tenderness (Positive left anterior upper chest tenderness with left midclavicular TTP, crepitus and overlying ecchymosis.). Absent: respiratory distress, wheezes, ra les, rhonchi, stridor, accessory muscle use, decreased breath sounds, prolonged expiratory Cardiovascular Exam: Present: regular rate, normal rhythm, normal heart sounds. Absent: systolic murmur, diastolic murmur, rubs, gallop, clicks GI/Abdominal exam: Present: soft, normal bowel sounds. Absent: distended, tenderness, guarding, rebound, rigid Extremities exam: Present: normal inspection, full ROM, tenderness (Positive left anterior and lateral shoulder TTP without obvious crepitus, deformity. Left upper extremity distal neurovascular and motor function intact. Radial pulse +2. Patient able to demonstrate some ability to abduct left arm.), normal capillary refill. Absent: pedal edema, joint swelling, calf tenderness Back exam: Present: normal inspection Neurological exam: Present: alert, oriented X3, CN II-XII intact Psychiatric exam: Present: normal affect, normal mood Skin exam: Present: warm, dry, intact, normal color, other (1 cm skin tear noted on dorsal aspect of left thumb metacarpal). Absent: rash <Bret Rosa - Last Filed: 10/14/24 21:08> Course Vital Signs 10/13/24 10/13/24 16:37 21:34 Temperature 97.6 F 98.6 F Pulse Rate 68 78 Respiratory 20 20 Rate Blood Pressure 129/69 132/57 O2 Sat by Pulse 100 98 Oximetry Medical Decision Making - Lab Data Result diagrams: 10/13/24 18:20 10/13/24 19:15 <León Ramsay - Last Filed: 10/13/24 23:00> - Lab Data Result diagrams: 10/13/24 18:20 10/13/24 19:15 <Bret Rosa - Last Filed: 10/14/24 21:08> - Medical Decision Making Patient signed out to me pending labs. Lab work requires no immediate action, potassium of 5.5 is hemolyzed. No leukocytosis or anemia. Urine shows no evidence of infection. Glucose 187 and 1+ ketones in the urine and normal anion gap. Patient recently signed out AMA from [facility] for PT and OT. He states that he has home health coming to the house for physical and Occupational Therapy. He is requesting discharge home. He has his at bedside who will be with him at home. Follow-up with PCP. Report back to ER with any new or worsening symptoms. Discussed return parameters and answered all questions. Patient conveyed verbal understanding and agreed to the plan. I discussed this case in detail with my attending Dr. Chavez (León Ramsay) Was pt. sent in by a medical professional or institution (, PA, DENTAL SURGERY DOCTOR, urgent care, hospital, or half-way...) When possible be specific @ -No Did you speak to anyone other than the patient for history (EMS, parent, family, police, friend...)? What history was obtained from this source @ - provided portion of HPI Did you review nursing and triage notes (agree or disagree)? Why? @ -I reviewed and agree with nursing and triage notes Were old charts reviewed (outside hosp., previous admission, EMS record, old EKG, old radiological studies, urgent care reports/EKG's, half-way records)? Report findings @ -No old charts were reviewed Differential Diagnosis (chest pain, altered mental status, abdominal pain women, abdominal pain men, vaginal bleeding, weakness, fever, dyspnea, syncope, headache, dizziness, GI bleed, back pain, seizure, CVA, palpatations, mental health, musculoskeletal)? @ -Differential Musculoskeletal Muscular strain, contusion, ligament sprain, fracture, arthritis, septic arthritis, bursitis, cellulitis, muscle spasm, nerve compression, DVT, arterial occlusion, herpes zoster, electrolyte abnormality, tumor.... This is not meant to be in all inclusive list Differential Weakness: Hypoglycemia, shock, sepsis, hyponatremia, anemia, infection, [place], ETOH, adverse medicine reaction, overdose, stroke, this is not meant to be an all-inclusive list. EKG interpreted by me (3pts min.). @ -Sinus rhythm with QT prolongation without ST deviation or T wave inversion. Ventricular rate 66 bpm, BLAS 123 ms, QRS 100 ms, QTc 458 ms. X-rays interpreted by me (1pt min.). @ - Left clavicle/shoulder/rib x-ray redemonstrates mildly displaced distal left clavicular fracture and remote healed fracture deformity left proximal humerus with no distinct new fractures or left rib fracture. CT interpreted by me (1pt min.). @ -None done U/S interpreted by me (1pt. min.). @ -None done What testing was considered but not performed or refused? (CT, X-rays, U/S, labs)? Why? @ -None What meds were considered but not given or refused? Why? @ -None Did you discuss the management of the patient with other professionals (professionals i.e. , PA, DENTAL SURGERY DOCTOR, lab, RT, psych nurse, secondary social studies teacher, broadloom weaver, teacher, geological technical officer, pillowcase cleaner)? Give summary @ -No Was smoking cessation discussed for >3mins.? @ -No Was critical care preformed (if so, how long)? @ -No Were there social determinants of health that impacted care today? How? (Homelessness, low income, unemployed, alcoholism, drug addiction, transportation, low edu. Level, literacy, decrease access to med. care, fdc, rehab)? @ -No Was there de-escalation of care discussed even if they declined (Discuss DNR or withdrawal of care, Hospice)? DNR status @ -No What co-morbidities impacted this encounter? (DM, HTN, Smoking, COPD, CAD, Cancer, CVA, ARF, Chemo, Hep., AIDS, mental health diagnosis, sleep apnea, morbid obesity)? @ -None Was patient admitted / discharged? Hospital course, mention meds given and route, prescriptions, significant lab abnormalities, going to OR and other pertinent info. @ -Patient initially provided IV Dilaudid for pain pain relief noted by patient. Left clavicle/shoulder/rib x-ray redemonstrates mildly displaced distal left clavicular fracture and remote healed fracture deformity left proximal humerus with no distinct new fractures or left rib fracture. Lab work performed due to patient noting weakness, notable for potassium 5.5, BUN 21 and glucose 187. UA positive for glycosuria and trace ketonuria. Patient provided shoulder immobilizer and advised follow-up with PCP regarding weakness and orthopedics regarding closed, displaced left clavicular fracture. Discussed patient with Dr. Chavez. Undiagnosed new problem with uncertain prognosis? @ -No Drug Therapy requiring intensive monitoring for toxicity (Heparin, Nitro, Insulin, Cardizem)? @ -No Were any procedures done? @ -No Diagnosis/symptom? @ -Close left distal clavicular fracture, weakness Acute, or Chronic, or Acute on Chronic? @ -Acute Uncomplicated (without systemic symptoms) or Complicated (systemic symptoms)? @ -Uncomplicated Side effects of treatment? @ -No Exacerbation, Progression, or Severe Exacerbation? @ -No Poses a threat to life or bodily function? How? (Chest pain, [place], [place], pneumonia, PE, COPD, DKA, ARF, appy, cholecystitis, CVA, Diverticulitis, Homicidal, Suicidal, threat to staff... and all critical care pts) @ -No (Bret Rosa) - Lab Data Lab Results 10/13/24 10/13/24 10/13/24 Range/Units 18:20 19:15 20:28 WBC 7.48 (4.50-10.00) 10*3/uL RBC 4.60 (4.40-5.60) 10*6/uL Hgb 14.6 (13.0-17.0) g/dL Hct 43.3 (39.6-50.0) % MCV 94.1 (80.0-97.0) fL MCH 31.7 (27.0-32.0) pg MCHC 33.7 (32.0-37.0) g/dL Plt Count 227 (140-440) 10*3/uL MPV 11.1 (9.5-12.2) fL Immature Gran % (Auto) 0.3 % Neutrophils % 52.9 % Lymphocytes % 38.2 % Monocytes % 6.3 % Eosinophils % 2.0 % Basophils % 0.3 % Immature Gran # 0.02 (0.00-0.04) 10*3/uL Neutrophils # 3.96 (1.80-7.70) 10*3/uL Lymphocytes # 2.86 (0.90-5.00) 10*3/uL Monocytes # 0.47 (0.20-1.00) 10*3/uL Eosinophils # 0.15 (0.04-0.35) 10*3/uL Basophils # 0.02 (0.00-0.10) 10*3/uL Sodium 136 L (137-145) mmol/L Potassium 5.5 H (3.5-5.1) mmol/L Chloride 102 (98-107) mmol/L Carbon Dioxide 24 (22-30) mmol/L Anion Gap 10 mmol/L BUN 21 H (9-20) mg/dL Creatinine 0.86 (0.66-1.25) mg/dL Est GFR (CKD-EPI)AfAm >90 (>60 ml/min/1.73 sqM) Est GFR (CKD-EPI)NonAf 86 (>60 ml/min/1.73 sqM) Glucose 187 H (74-99) mg/dL Calcium 9.1 (8.4-10.2) mg/dL Phosphorus 4.1 (2.5-4.5) mg/dL Magnesium 2.2 (1.6-2.3) mg/dL Total Bilirubin 1.0 (0.2-1.3) mg/dL AST 47 (17-59) U/L ALT 27 (4-49) U/L Alkaline Phosphatase 49 (38-126) U/L Total Protein 7.0 (6.3-8.2) g/dL Albumin 3.7 (3.5-5.0) g/dL Urine Color Colorless Urine Appearance Clear (Clear) Urine pH 5.0 (5.0-8.0) Ur Specific Dorothy 1.028 (1.001-1.035) Urine Protein Negative (Negative) Urine Glucose (UA) 4+ H (Negative) Urine Ketones 1+ H (Negative) Urine Blood Negative (Negative) Urine Nitrite Negative (Negative) Urine Bilirubin Negative (Negative) Urine Urobilinogen <2.0 (<2.0) mg/dL Ur Leukocyte Esterase Negative (Negative) Disposition <León Ramsay - Last Filed: 10/13/24 23:00> Is patient prescribed a controlled substance at d/c from ED?: No Time of Disposition: 19:23 <Bret Rosa - Last Filed: 10/14/24 21:08> Clinical Impression: Closed left clavicular fracture, Weakness Disposition: HOME SELF-CARE Condition: Fair Instructions (If sedation given, give patient instructions): Clavicle Fracture (ED), Fall Prevention for Older Adults (ED) Additional Instructions: Follow-up with PCP in the next 24-48 hours for further evaluation and workup for weakness. Follow-up with orthopedics regarding left clavicular fracture. Referrals: Ej Gibson MD [Primary Care Provider] - 1-2 days [facility] [Provider Group] - 1-2 days [facility] [Provider Group] - 1-2 days
--- NOTE | 2024-10-13 18:03 | XR ---
EXAMINATION TYPE: XR ribs LT w pa chest xray, XR shoulder complete LT, XR clavicle LT DATE OF EXAM: 10/13/2024 5:48 PM INDICATION: Patient age:Male; 74 years old; Reason for study: Fall, left upper chest/shoulder pain; PHH. pain COMPARISON: Left shoulder radiographs 10/05/2024, chest radiograph 10/05/2024 TECHNIQUE: Frontal and oblique views of the left ribs. The left shoulder was evaluated in AP, interna l rotated, and scapular Y projections. The left clavicle was evaluated in 2 projections. FINDINGS: Redemonstration of acute mild displaced distal left clavicular fracture. There is again hilton roximately 8 mm of inferior displacement of the distal fracture of clavicle in relation to the proxim al aspect. No dislocation. AC joint appears intact. No discrete rib fracture. Remote healed fracture of the left humeral neck. Left shoulder arthropathy demonstrated. Overall, the visualized lungs are c lear. The cardiac silhouette is normal in size. The remaining osseous structures are intact. IMPRESSION: 1. Redemonstration of a mildly displaced subacute distal left clavicular fracture. 2. Remote healed fracture deformity of the left proximal humerus. No distinct new fracture definitive ly identified. Consider further evaluation if there is continued concern for occult fracture. 3. No distinct left-sided rib fracture. [facility], , 10/13/2024 6:01 PM
[2024-10-13 18:32] LABS: Basophils # (A) 0.02 10*3/uL (0.00-0.10); Basophils % (A) 0.3 %; Eosinophils # (A) 0.15 10*3/uL (0.04-0.35); Eosinophils % (A) 2.0 %; HCT 43.3 % (39.6-50.0); HGB 14.6 g/dL (13.0-17.0); Lymphocytes # (A) 2.86 10*3/uL (0.90-5.00); Lymphocytes % (A) 38.2 %; MCH 31.7 pg (27.0-32.0); MCHC 33.7 g/dL (32.0-37.0); MCV 94.1 fL (80.0-97.0); Monocytes # (A) 0.47 10*3/uL (0.20-1.00); Monocytes % (A) 6.3 %; Neutrophils # (A) 3.96 10*3/uL (1.80-7.70); Neutrophils % (A) 52.9 %; Platelet Count 227 10*3/uL (140-440); RBC 4.60 10*6/uL (4.40-5.60); RDW 13.3 % (11.5-14.5); WBC 7.48 10*3/uL (4.50-10.00)
[2024-10-13] MEDS: HYDROmorphone 1 MG/ML 1 ML SYRINGE IVP STA (18:34)
[2024-10-13 19:44] LABS: African American GFR (CKD) >90 (>60 ml/min/1.73 sqM); Albumin 3.7 g/dL (3.5-5.0); Alkaline Phosphatase 49 U/L (38-126); Anion Gap 10 mmol/L; Calcium 9.1 mg/dL (8.4-10.2); Carbon Dioxide 24 mmol/L (22-30); Chloride 102 mmol/L (98-107); Magnesium 2.2 mg/dL (1.6-2.3); Non-African American GFR(CKD) 86 (>60 ml/min/1.73 sqM); Sodium 136 mmol/L (137-145); Total Protein 7.0 g/dL (6.3-8.2)
[2024-10-13 19:45] LABS: ALT 27 U/L (4-49); AST 47 U/L (17-59); Blood Urea Nitrogen 21 mg/dL (9-20); Glucose 187 mg/dL (74-99); Potassium 5.5 mmol/L (3.5-5.1)
[2024-10-13 20:50] LABS: Bilirubin,Urine Negative (Negative); Blood,Urine Negative (Negative); Color,Urine Colorless; Glucose,Urine (UA) 4+ (Negative); Ketones,Urine 1+ (Negative); Leukocyte Esterase,Urine Negative (Negative); Nitrite,Urine Negative (Negative); PH, Urine 5.0 (5.0-8.0); Protein,Urine Negative (Negative); Specific Gravity,Urine 1.028 (1.001-1.035); Urobilinogen,Urine <2.0 mg/dL (<2.0)
[2024-10-13 21:36] VITALS: BP 132/57; PULSE 78; TEMP 98.6
== END 2024-10-13 21:36 | disposition home or self-care (01) ==
LOC: EC 16:30
DX: S42.032A Displaced fracture of lateral end of left clavicle, initial encounter for closed fracture (principal); Z87.891 Personal history of nicotine dependence; W18.30XA Fall on same level, unspecified, initial encounter
CPT/HCPCS: 36415; 93005; 80053; 83735; 84100; 85025; 81003; 71101; 73030; 73000; 99284; 96374; L3670 ×2; J1171

== ENCOUNTER 2024-10-13 22:49 | Observation (INO) | payer MEDICARE, OTHER ==
[2024-10-13] MEDS: MORPHINE SULFATE 4 MG/ML SYRINGE IVP STA (23:18)
[2024-10-13] MEDS: SODIUM CHLORIDE 0.9% 500 ML 500 ML IV ONE (23:19)
[2024-10-13 23:33] LABS: Basophils # (A) 0.02 10*3/uL (0.00-0.10); Basophils % (A) 0.3 %; Eosinophils # (A) 0.16 10*3/uL (0.04-0.35); Eosinophils % (A) 2.1 %; HCT 38.4 % (39.6-50.0); HGB 13.1 g/dL (13.0-17.0); Lymphocytes # (A) 2.11 10*3/uL (0.90-5.00); Lymphocytes % (A) 28.0 %; MCH 32.2 pg (27.0-32.0); MCHC 34.1 g/dL (32.0-37.0); MCV 94.3 fL (80.0-97.0); Monocytes # (A) 0.57 10*3/uL (0.20-1.00); Monocytes % (A) 7.6 %; Neutrophils # (A) 4.67 10*3/uL (1.80-7.70); Neutrophils % (A) 61.9 %; Platelet Count 191 10*3/uL (140-440); RBC 4.07 10*6/uL (4.40-5.60); RDW 13.2 % (11.5-14.5); WBC 7.54 10*3/uL (4.50-10.00)
[2024-10-13 23:50] LABS: ALT 24 U/L (4-49); AST 38 U/L (17-59); African American GFR (CKD) 83 (>60 ml/min/1.73 sqM); Albumin 3.4 g/dL (3.5-5.0); Alkaline Phosphatase 51 U/L (38-126); Anion Gap 12 mmol/L; Blood Urea Nitrogen 21 mg/dL (9-20); Calcium 8.6 mg/dL (8.4-10.2); Carbon Dioxide 21 mmol/L (22-30); Chloride 103 mmol/L (98-107); Glucose 269 mg/dL (74-99); Magnesium 2.0 mg/dL (1.6-2.3); Non-African American GFR(CKD) 72 (>60 ml/min/1.73 sqM); Potassium 4.5 mmol/L (3.5-5.1); Sodium 136 mmol/L (137-145); Total Protein 6.4 g/dL (6.3-8.2)
--- NOTE | 2024-10-13 23:52 | ED ---
Fall HPI - General Chief Complaint: Fall Stated Complaint: Weakness Time Seen by Provider: 10/13/24 23:04 Source: patient, EMS Mode of arrival: EMS - History of Present Illness Initial Comments: 74-year-old male presenting for evaluation post fall. Patient was seen at our facility earlier today. He was seen for weakness and a fall. His workup was negative and he requested discharge home as he states he has home care coming to help him. However when he got home from the hospital today he got out of the car and shortly thereafter fell onto his buttocks. States that he did not hit his head or pass out. He does take Plavix. Patient recently signed out from [facility]INST [facility]VICE refusing PT and OT there, he was sent there from our facility after being admitted for a fall and found to have a broken left clavicle. He is having bilateral hip pain worse on the right side. No chest pain or difficulty breathing. No abdominal pain. - Related Data Home Medications Medication Instructions Recorded Confirmed Tamsulosin [Flomax] 0.4 mg PO DAILY 11/09/18 10/06/24 Clopidogrel [Plavix] 75 mg PO DAILY 08/06/23 10/06/24 Ergocalciferol [Vitamin D2 (1250 1,250 mcg PO WEEKLY 08/06/23 10/06/24 Mcg = 20653 Iu)] Memantine HCl 5 mg PO BID 08/27/24 10/06/24 HYDROcodone/APAP 10-325MG [[place] 1 tab PO Q8H PRN 10/06/24 10/06/24 10-325] Insulin Glargine-Yfgn [Semglee 70 unit SQ DAILY 10/06/24 10/06/24 (Yfgn) Pen] Metoprolol Tartrate [Lopressor] 25 mg PO BID 10/06/24 10/06/24 Pantoprazole Sodium [Protonix] 40 mg PO BID 10/06/24 10/06/24 Previous Rx's Medication Instructions Recorded Atorvastatin [Lipitor] 80 mg PO HS 30 Days #30 tab 08/07/23 Allergies Allergy/AdvReac Type Severity Reaction Status Date / Time No Known Allergies Allergy Verified 10/13/24 16:41 Review of Systems ROS Statement: Those systems with pertinent positive or pertinent negative responses have been documented in the HPI. ROS Other: All systems not noted in ROS Statement are negative. Past Medical History Past Medical History: Blood Disorder, Coronary Artery Disease (CAD), CVA/TIA, Dementia, Diabetes Mellitus, Eye Disorder, GERD/Reflux, Hearing Disorder / Deafness, Hyperlipidemia, Hypertension, Neurologic Disorder, Osteoarthritis (OA), Prostate Disorder, Renal Disease, Syncope Additional Past Medical History / Comment(s): spouse states "able to sign consents", pilonidal cyst, recent yeast infection to penis, IDDM type 1, bilateral legs/feet/arms and hand neuropathy, chronic renal disease, difficulty swallowing, RLS, factor V Leiden, early dementia, BPH, bilateral tinnitis, R eye retinal bleeds x2, chronic low back pain with bilateral sciatica which is worse on the right side, bilateral shoulder and cervical pain, possible TIAs (01/13), History of Any Multi-Drug Resistant Organisms: None Reported Past Surgical History: Adenoidectomy, Back Surgery, Heart Catheterization, Orthopedic Surgery, Tonsillectomy Additional Past Surgical History / Comment(s): Lumbar laminectomy, R knee cartildge surgery, bilateral carpal tunnel released, sen wrist dequevain surgery, R rotator cuff repair, L foot pins and plates, EGD, colonoscopy, R eye laser eye surgery for retinal bleeds, bilateral cataract removals/lens implants Past Anesthesia/Blood Transfusion Reactions: Motion Sickness Additional Past Anesthesia/Blood Transfusion Reaction / Comment(s): no hx blood transfusion Past Psychological History: Depression Smoking Status: Former smoker Past Alcohol Use History: None Reported Past Drug Use History: None Reported - Past Family History Brother(s) Family Medical History: Blood Disorder, Deep Vein Thrombosis (DVT) Mother Additional Family Medical History / Comment(s): Mother had palsey Father Family Medical History: COPD, Myocardial Infarction ([place]) Additional Family Medical History / Comment(s): Father of COPD/[place] at the age of 72 yrs. General Exam General appearance: alert, in no apparent distress Head exam: Present: atraumatic, normocephalic, normal inspection Eye exam: Present: normal appearance Neck exam: Present: normal inspection. Absent: meningismus Respiratory exam: Present: normal lung sounds bilaterally. Absent: respiratory distress, wheezes, rales, rhonchi, stridor Cardiovascular Exam: Present: regular rate, normal rhythm, normal heart sounds. Absent: systolic murmur, diastolic murmur, rubs, gallop, clicks Neurological exam: Present: alert, oriented X3 Psychiatric exam: Present: normal affect, normal mood Skin exam: Present: warm, dry, normal color Course Vital Signs 10/13/24 22:52 Temperature 98.3 F Pulse Rate 74 Respiratory 18 Rate Blood Pressure 157/75 O2 Sat by Pulse 98 Oximetry Medical Decision Making - Medical Decision Making Was pt. sent in by a medical professional or institution (, ALYSSIA, BUILDING REPAIR MAINTENANCE SUPERVISOR, urgent care, hospital, or half-way...) When possible be specific @ -No Did you speak to anyone other than the patient for history (EMS, parent, family, police, friend...)? What history was obtained from this source @ -No Did you review nursing and triage notes (agree or disagree)? Why? @ -I reviewed and agree with nursing and triage notes Were old charts reviewed (outside hosp., previous admission, EMS record, old EKG, old radiological studies, urgent care reports/EKG's, half-way records)? Report findings @ -No old charts were reviewed Differential Diagnosis (chest pain, altered mental status, abdominal pain women, abdominal pain men, vaginal bleeding, weakness, fever, dyspnea, syncope, headache, dizziness, GI bleed, back pain, seizure, CVA, palpatations, mental health, musculoskeletal)? @ -MDM Differential Weakness: Hypoglycemia, shock, sepsis, hyponatremia, anemia, infection, [place], ETOH, adverse medicine reaction, overdose, stroke. ... This is not meant to be an all- inclusive list EKG interpreted by me (3pts min.). @ -As above X-rays interpreted by me (1pt min.). @ -Hip x-ray showed no acute osseous process CT interpreted by me (1pt min.). @ -None done U/S interpreted by me (1pt. min.). @ -None done What testing was considered but not performed or refused? (CT, X-rays, U/S, labs)? Why? @ -None What meds were considered but not given or refused? Why? @ -None Did you discuss the management of the patient with other professionals (professionals i.e. ALYSSIA Garnett, BUILDING REPAIR MAINTENANCE SUPERVISOR, lab, RT, psych nurse, director social service, care connector, teacher, fare enforcement officer, showcase maker)? Give summary @ -Spoke with Dr. Gibson who accepts admission Was smoking cessation discussed for >3mins.? @ -No Was critical care preformed (if so, how long)? @ -No Were there social determinants of health that impacted care today? How? (Homelessness, low income, unemployed, alcoholism, drug addiction, transportation, low edu. Level, literacy, decrease access to med. care, assisted, rehab)? @ -No Was there de-escalation of care discussed even if they declined (Discuss DNR or withdrawal of care, Hospice)? DNR status @ -No What co-morbidities impacted this encounter? (DM, HTN, Smoking, COPD, CAD, Cancer, CVA, ARF, Chemo, Hep., AIDS, mental health diagnosis, sleep apnea, morbid obesity)? @ -None Was patient admitted / discharged? Hospital course, mention meds given and route, prescriptions, significant lab abnormalities, going to OR and other pertinent info. @ -74-year-old male presenting for evaluation after a fall. Patient was just at our facility earlier today, at that time he also came for a fall due to weakness. During that visit he requested discharge home as he does have home care coming. When he got home he got out of the car and was too weak to walk so he fell onto his bottom. No head injury or loss of consciousness. X-rays are negative for acute osseous process. Patient will be admitted with consults to PT and OT. Patient is agreeable with this plan. I discussed this case with my attending Dr. Haji Undiagnosed new problem with uncertain prognosis? @ -No Drug Therapy requiring intensive monitoring for toxicity (Heparin, Nitro, Insulin, Cardizem)? @ -No Were any procedures done? @ -No Diagnosis/symptom? @ -Generalized weakness, recurrent falls Acute, or Chronic, or Acute on Chronic? @ -Acute Uncomplicated (without systemic symptoms) or Complicated (systemic symptoms)? @ -Complicated Side effects of treatment? @ -No Exacerbation, Progression, or Severe Exacerbation? @ -No Poses a threat to life or bodily function? How? (Chest pain, [place], [place], pneumonia, PE, COPD, DKA, ARF, appy, cholecystitis, CVA, Diverticulitis, Homicidal, Suicidal, threat to staff... and all critical care pts) @ -Yes - Lab Data Result diagrams: 10/13/24 23:20 10/13/24 23:20 Lab Results 10/13/24 10/13/24 Range/Units 23:20 23:20 WBC 7.54 (4.50-10.00) 10*3/uL RBC 4.07 L (4.40-5.60) 10*6/uL Hgb 13.1 (13.0-17.0) g/dL Hct 38.4 L (39.6-50.0) % MCV 94.3 (80.0-97.0) fL MCH 32.2 H (27.0-32.0) pg MCHC 34.1 (32.0-37.0) g/dL Plt Count 191 (140-440) 10*3/uL MPV 11.4 (9.5-12.2) fL Immature Gran % (Auto) 0.1 % Neutrophils % 61.9 % Lymphocytes % 28.0 % Monocytes % 7.6 % Eosinophils % 2.1 % Basophils % 0.3 % Immature Gran # 0.01 (0.00-0.04) 10*3/uL Neutrophils # 4.67 (1.80-7.70) 10*3/uL Lymphocytes # 2.11 (0.90-5.00) 10*3/uL Monocytes # 0.57 (0.20-1.00) 10*3/uL Eosinophils # 0.16 (0.04-0.35) 10*3/uL Basophils # 0.02 (0.00-0.10) 10*3/uL Sodium 136 L (137-145) mmol/L Potassium 4.5 (3.5-5.1) mmol/L Chloride 103 (98-107) mmol/L Carbon Dioxide 21 L (22-30) mmol/L Anion Gap 12 mmol/L BUN 21 H (9-20) mg/dL Creatinine 1.03 (0.66-1.25) mg/dL Est GFR (CKD-EPI)AfAm 83 (>60 ml/min/1.73 sqM) Est GFR (CKD-EPI)NonAf 72 (>60 ml/min/1.73 sqM) Glucose 269 H (74-99) mg/dL Calcium 8.6 (8.4-10.2) mg/dL Magnesium 2.0 (1.6-2.3) mg/dL Total Bilirubin 0.8 (0.2-1.3) mg/dL AST 38 (17-59) U/L ALT 24 (4-49) U/L Alkaline Phosphatase 51 (38-126) U/L Total Protein 6.4 (6.3-8.2) g/dL Albumin 3.4 L (3.5-5.0) g/dL Disposition Clinical Impression: Generalized weakness Disposition: ADMITTED IP TO THIS HOSP Condition: Fair
--- NOTE | 2024-10-14 00:55 | XR ---
EXAMINATION TYPE: XR Hip Bilateral and AP pelvis DATE OF EXAM: 10/14/2024 12:23 AM INDICATION: Patient age:Male; 74 years old; Reason for study: fall; PHH. pain COMPARISON: Pelvic radiographs 02/05/2025 TECHNIQUE: Both hips were examined in the frontal and lateral projections and a AP pelvis. FINDINGS: No evidence of fracture or dislocation. No soft tissue abnormality. The SI joints appear in tact. No abnormal calcifications are present. Mild osteoarthritic changes of both hips with medial terri int space narrowing and acetabular sclerosis. Both SI joints appear intact. Multilevel degenerative c hanges of the lower spine with partial visualization of lumbar fusion hardware. Vascular sclerosis. IMPRESSION: No acute osseous pathology. [facility], , 10/14/2024 12:53 AM
[2024-10-14] MEDS ORDERED: ACETAMINOPHEN TAB 325 MG TAB PO PRN (00:59)
[2024-10-14] MEDS ORDERED: NALOXONE 0.4 MG/ML 1 ML VIAL IV PRN (00:59)
[2024-10-14] MEDS: SODIUM CHLORIDE 0.9% 1,000 ML IV SCH (02:01)
[2024-10-14] MEDS: HYDROcodone/APAP 5-325MG 1 EACH TAB PO PRN (04:39)
[2024-10-14 06:35] LABS: Glucose,Whole Blood 236 mg/dL (70-110)
[2024-10-14] MEDS ORDERED: DEXTROSE 50% SYRINGE 50 ML IVP PRN ×2 (08:42)
--- NOTE | 2024-10-14 09:39 | P.HPIM ---
History of Present Illness H&P Date: 10/14/24 Yury Brewer is a 74-year-old male patient who presented with concern of fall. Patient was recently discharged to [facility] on the hull. Patient reports he stayed for 1 night and left AMA due to not liking the facility. Patient initially presented to the ER after weakness and fall but was discharged home however when he got home from hospital he got out of the car and shortly thereafter fell on his butt prompting him to come back patient denies hitting his head or any loss of consciousness.. Patient was recently admitted to the hospital and treated and sent to [facility] secondary to broken left clavicle. Additional medical history includes CAD, CVA, dementia, diabetes mellitus, GERD, depression and neck smoker. Hip x-ray completed showing no acute findings. Lab work completed showing white blood cell 7.54, hemoglobin 13.1, sodium 136, creatinine 1.03, bun 21. Patient denies chest pain or shortness of breath. Patient denies nausea vomiting or diarrhea. Patient denies any urinary burning or frequency. Current vital signs temp 98.5, heart rate 76, respiratory rate 19, blood pressure 155/74 with pulse ox 100% on room air. At this time PT OT and social work services have been for further evaluation and discharge planning Review of Systems Please refer to HPI otherwise unremarkable Past Medical History Past Medical History: Blood Disorder, Coronary Artery Disease (CAD), CVA/TIA, Dementia, Diabetes Mellitus, Eye Disorder, GERD/Reflux, Hearing Disorder / Deafness, Hyperlipidemia, Hypertension, Neurologic Disorder, Osteoarthritis (OA), Prostate Disorder, Renal Disease, Syncope Additional Past Medical History / Comment(s): spouse states "able to sign consents", pilonidal cyst, recent yeast infection to penis, IDDM type 1, bilateral legs/feet/arms and hand neuropathy, chronic renal disease, difficulty swallowing, RLS, factor V Leiden, early dementia, BPH, bilateral tinnitis, R eye retinal bleeds x2, chronic low back pain with bilateral sciatica which is worse on the right side, bilateral shoulder and cervical pain, possible TIAs (01/13), History of Any Multi-Drug Resistant Organisms: None Reported Past Surgical History: Adenoidectomy, Back Surgery, Heart Catheterization, Orthopedic Surgery, Tonsillectomy Additional Past Surgical History / Comment(s): Lumbar laminectomy, R knee cartildge surgery, bilateral carpal tunnel released, sen wrist dequevain surgery, R rotator cuff repair, L foot pins and plates, EGD, colonoscopy, R eye laser eye surgery for retinal bleeds, bilateral cataract removals/lens implants Past Anesthesia/Blood Transfusion Reactions: Motion Sickness Additional Past Anesthesia/Blood Transfusion Reaction / Comment(s): no hx blood transfusion Past Psychological History: Depression Additional Psychological History / Comment(s): Pt resides with his spouse and their adult son. Pt uses a walker prn. He drives. He is currently managing his own medications but admits this is getting more difficult. Smoking Status: Former smoker Past Alcohol Use History: None Reported Additional Past Alcohol Use History / Comment(s): Pt started smoking in 1962 and quit in 1987 Past Drug Use History: None Reported - Past Family History Brother(s) Family Medical History: Blood Disorder, Deep Vein Thrombosis (DVT) Mother Additional Family Medical History / Comment(s): Mother had palsey Father Family Medical History: COPD, Myocardial Infarction ([place]) Additional Family Medical History / Comment(s): Father of COPD/[place] at the age of 72 yrs. Medications and Allergies Home Medications Medication Instructions Recorded Confirmed Type Tamsulosin [Flomax] 0.4 mg PO DAILY 11/09/18 10/14/24 History Clopidogrel [Plavix] 75 mg PO DAILY 08/06/23 10/14/24 History Ergocalciferol [Vitamin D2 (1250 1,250 mcg PO WEEKLY 08/06/23 10/14/24 History Mcg = 52448 Iu)] Atorvastatin [Lipitor] 80 mg PO HS 30 Days #30 tab 08/07/23 10/14/24 Rx Memantine HCl 5 mg PO BID 08/27/24 10/14/24 History HYDROcodone/APAP 10-325MG [[place] 1 tab PO Q8H PRN 10/06/24 10/14/24 History 10-325] Insulin Glargine-Yfgn [Semglee 75 unit SQ DAILY 10/06/24 10/14/24 History (Yfgn) Pen] Metoprolol Tartrate [Lopressor] 25 mg PO BID 10/06/24 10/14/24 History Pantoprazole Sodium [Protonix] 40 mg PO BID 10/06/24 10/14/24 History Allergies Allergy/AdvReac Type Severity Reaction Status Date / Time No Known Allergies Allergy Verified 10/14/24 07:37 Physical Exam Vitals: Vital Signs Temp Pulse Pulse Resp BP BP Pulse Ox 10/14/24 06:58 97.4 F L 80 18 188/81 98 10/14/24 03:58 98.5 F 76 19 155/74 100 10/14/24 03:00 81 18 145/94 96 10/13/24 22:52 98.3 F 74 18 157/75 98 Intake and Output 10/13/24 10/14/24 10/14/24 22:59 06:59 14:59 Output Total 200 Balance -200 Output: Urine 200 Other: # Voids 1 Weight 124.738 kg 124.738 kg Head normocephalic Neck supple Lungs clear to auscultation bilaterally no wheezing or crackles Heart regular rate and rhythm S1-S2, no rub or gallop Abdomen is soft nontender nondistended positive bowel sounds no hepatosplenomegaly Extremities no edema Neuro alert and orientated to 3 Results CBC & Chem 7: 10/13/24 23:20 10/13/24 23:20 Labs: Abnormal Lab Results - Last 24 Hours (Table) 10/13/24 10/13/24 10/14/24 Range/Units 23:20 23:20 06:34 RBC 4.07 L (4.40-5.60) 10*6/uL Hct 38.4 L (39.6-50.0) % MCH 32.2 H (27.0-32.0) pg Sodium 136 L (137-145) mmol/L Carbon Dioxide 21 L (22-30) mmol/L BUN 21 H (9-20) mg/dL Glucose 269 H (74-99) mg/dL POC Glucose (mg/dL) 236 H (70-110) mg/dL Albumin 3.4 L (3.5-5.0) g/dL Thrombosis Risk Factor Assmnt - Choose All That Apply Any of the Below Risk Factors Present?: Yes Each Factor Represents 1 point: Obesity (BMI >25) Other Risk Factors: Yes Each Risk Factor Represents 2 Points: Age 61-74 years Each Risk Factor Represents 3 Points: Positive Factor V Leiden Other congenital or acquired thrombophilia - If yes, enter type in comment: No Thrombosis Risk Factor Assessment Total Risk Factor Score: 6 Thrombosis Risk Factor Assessment Level: High Risk Assessment and Plan Assessment: 1. Generalized weakness with falls 2. Recent admission for fall with clavicle fracture 3. History of diabetes mellitus type 1 4. History of coronary artery disease 5. History of autonomic dysfunction 6. History of hyperlipidemia DVT prophylaxis Lovenox GI prophylax Protonix Repeat labs ordered PT OT and social work services consulted Time with Patient: Greater than 30 (Greater than 60% of the total time spent in counseling and coordination of care)
[2024-10-14 09:59] LABS: Glucose,Whole Blood 300 mg/dL (70-110)
[2024-10-14] MEDS: MEMANTINE 5 MG TAB PO SCH (10:18)
[2024-10-14] MEDS: TAMSULOSIN 0.4 MG CAP.ER.24H PO SCH (10:18)
[2024-10-14] MEDS: CLOPIDOGREL 75 MG TAB PO SCH (10:18)
[2024-10-14] MEDS: METOPROLOL TARTRATE 25 MG TAB PO SCH (10:18)
[2024-10-14] MEDS: PANTOPRAZOLE 40 MG TABLET PO SCH (10:19)
[2024-10-14 11:40] LABS: Glucose,Whole Blood 226 mg/dL (70-110)
[2024-10-14] MEDS: INSULIN LISPRO (HumaLOG) 100 UNIT/ML 10 mL VL SQ SCH (12:13)
[2024-10-14 17:09] LABS: Glucose,Whole Blood 216 mg/dL (70-110)
[2024-10-14 20:23] LABS: Glucose,Whole Blood 232 mg/dL (70-110)
[2024-10-14] MEDS: ATORVASTATIN 80 MG TAB PO SCH (20:31)
[2024-10-15 06:24] LABS: Glucose,Whole Blood 307 mg/dL (70-110)
[2024-10-15 08:07] LABS: Basophils # (A) 0.02 X 10*3/uL (0.00-0.10); Basophils % (A) 0.3 %; Eosinophils # (A) 0.24 X 10*3/uL (0.04-0.35); Eosinophils % (A) 3.5 %; HCT 38.2 % (39.6-50.0); HGB 12.5 g/dL (13.0-17.0); Immature Grans, Automated 0.30 %; Lymphocytes # (A) 2.41 X 10*3/uL (0.90-5.00); Lymphocytes % (A) 35.2 %; MCH 31.6 pg (27.0-32.0); MCHC 32.7 g/dL (32.0-37.0); MCV 96.7 FL (80.0-97.0); Monocytes # (A) 0.62 X 10*3/uL (0.20-1.00); Monocytes % (A) 9.1 %; NRBC Per 100 WBC 0 X 10*3/uL (0.00-0.01); Neutrophils # (A) 3.54 X 10*3/uL (1.80-7.70); Neutrophils % (A) 51.6 %; Platelet Count 174 X 10*3/uL (140-440); RBC 3.95 X 10*6/uL (4.40-5.60); RDW 13.6 % (11.5-14.5); WBC 6.85 X 10*3/uL (4.50-10.00)
[2024-10-15 08:28] LABS: Anion Gap 10.90 mmol/L (4.00-12.00); BUN/Creat Ratio 17.20 Ratio (12.00-20.00); Blood Urea Nitrogen 17.2 mg/dL (9.0-27.0); Carbon Dioxide 23.1 mmol/L (21.6-31.8); Chloride 103 mmol/L (96-109); Glucose 279 mg/dL (70-110); Potassium 5.3 mmol/L (3.5-5.5); Sodium 137 mmol/L (135-145)
[2024-10-15 08:29] LABS: ALT 25 U/L (10-49); AST 31 U/L (14-35); Albumin 3.2 g/dL (3.8-4.9); Albumin/Globulin Ratio 1.28 Ratio (1.60-3.17); Alkaline Phosphatase 56 U/L (41-126); Calcium 8.5 mg/dL (8.7-10.3); Globulin 2.5 g/dL (1.6-3.3); Total Protein 5.7 g/dL (6.2-8.2)
--- NOTE | 2024-10-15 09:54 | P.PN ---
Subjective Progress Note Date: 10/15/24 Yury Brewer is a 74-year-old male patient who presented with concern of fall. Patient was recently discharged to [facility] on the hull. Patient reports he stayed for 1 night and left AMA due to not liking the facility. Patient initially presented to the ER after weakness and fall but was discharged home however when he got home from hospital he got out of the car and shortly thereafter fell on his butt prompting him to come back patient denies hitting his head or any loss of consciousness.. Patient was recently admitted to the hospital and treated and sent to [facility] secondary to broken left clavicle. Additional medical history includes CAD, CVA, dementia, diabetes mellitus, GERD, depression and neck smoker. Hip x-ray completed showing no acute findings. Lab work completed showing white blood cell 7.54, hemoglobin 13.1, sodium 136, creatinine 1.03, bun 21. Patient denies chest pain or shortness of breath. Patient denies nausea vomiting or diarrhea. Patient denies any urinary burning or frequency. Current vital signs temp 98.5, heart rate 76, respiratory rate 19, blood pressure 155/74 with pulse ox 100% on room air. At this time PT OT and social work services have been for further evaluation and discharge planning On 10/15/2024 patient is alert and oriented x 3 patient is now agreeable to [facility] upon discharge. Patient complaining about urinary retention will consult urology services patient maintained on Flomax. Current vital signs temp 98.1, heart rate 62, respiratory rate 18, blood pressure 118/59 with pulse ox of 96% on room air. Patient denies chest pain or shortness of breath. Patient denies nausea vomiting or diarrhea. Patient denies any urinary burning or frequency Objective - Vital Signs Vital signs: Vital Signs Temp 98.1 F 10/15/24 02:20 Pulse 62 10/15/24 02:20 Resp 18 10/15/24 02:20 BP 118/59 10/15/24 02:20 Pulse Ox 96 10/15/24 02:20 FiO2 Intake & Output 10/14/24 10/15/24 10/15/24 18:59 06:59 18:59 Intake Total 450 Output Total 600 425 Balance -150 -425 Intake: Oral 450 Output: Urine 600 425 Other: Voiding Method Urinal Urinal Incontinent Incontinent # Voids 1 1 - Exam Head normocephalic Neck supple Lungs clear to auscultation bilaterally no wheezing or crackles Heart regular rate and rhythm S1-S2, no rub or gallop Abdomen is soft nontender nondistended positive bowel sounds no hepatosplenomegaly Extremities no edema Neuro alert and orientated to 3 - Labs CBC & Chem 7: 10/15/24 04:14 10/15/24 04:14 Labs: Abnormal Lab Results - Last 24 Hours (Table) 10/14/24 10/14/24 10/14/24 Range/Units 09:57 11:36 17:08 RBC (4.40-5.60) X 10*6/uL Hgb (13.0-17.0) g/dL Hct (39.6-50.0) % Glucose (70-110) mg/dL POC Glucose (mg/dL) 300 H 226 H 216 H (70-110) mg/dL Hemoglobin A1c (<=6.0) % Calcium (8.7-10.3) mg/dL Total Protein (6.2-8.2) g/dL Albumin (3.8-4.9) g/dL Albumin/Globulin Ratio (1.60-3.17) Ratio 10/14/24 10/15/24 10/15/24 Range/Units 20:23 04:14 04:14 RBC 3.95 L (4.40-5.60) X 10*6/uL Hgb 12.5 L (13.0-17.0) g/dL Hct 38.2 L (39.6-50.0) % Glucose (70-110) mg/dL POC Glucose (mg/dL) 232 H (70-110) mg/dL Hemoglobin A1c 8.5 H (<=6.0) % Calcium (8.7-10.3) mg/dL Total Protein (6.2-8.2) g/dL Albumin (3.8-4.9) g/dL Albumin/Globulin Ratio (1.60-3.17) Ratio 10/15/24 10/15/24 Range/Units 04:14 06:23 RBC (4.40-5.60) X 10*6/uL Hgb (13.0-17.0) g/dL Hct (39.6-50.0) % Glucose 279 H (70-110) mg/dL POC Glucose (mg/dL) 307 H (70-110) mg/dL Hemoglobin A1c (<=6.0) % Calcium 8.5 L (8.7-10.3) mg/dL Total Protein 5.7 L (6.2-8.2) g/dL Albumin 3.2 L (3.8-4.9) g/dL Albumin/Globulin Ratio 1.28 L (1.60-3.17) Ratio Assessment and Plan Assessment: 1. Generalized weakness with falls 2. Recent admission for fall with clavicle fracture 3. History of diabetes mellitus type 1 4. History of coronary artery disease 5. History of autonomic dysfunction 6. History of hyperlipidemia 7. Urinary retention DVT prophylaxis Lovenox GI prophylax Protonix Repeat labs ordered PT OT and social work services consulted Urology and urinary analysis ordered [facility]
[2024-10-15 09:55] VITALS: RESP 17
[2024-10-15] MEDS: ENOXAPARIN 40 MG/0.4 ML SYRINGE SQ SCH (09:59)
[2024-10-15 12:01] LABS: Glucose,Whole Blood 287 mg/dL (70-110)
--- NOTE | 2024-10-15 12:47 | P.DS ---
Providers Date of admission: 10/14/24 01:01 Expected date of discharge: 10/15/24 Attending physician: Ej Gibson Consults: 10/15/24 09:50 Consult Physician Routine Consulting Provider: Yury Gregorio Consult Reason/Comments: urinary retention Do you want consulting provider notified?: Yes Primary care physician: Ej Gibson [facility] Course: Diagnosis on discharge: 1. Generalized weakness with falls 2. Recent admission for fall with clavicle fracture 3. History of diabetes mellitus type 1 4. History of coronary artery disease 5. History of autonomic dysfunction 6. History of hyperlipidemia 7. Urinary retention Hospital course: Yury Brewer is a 74-year-old male patient who presented with concern of fall. Patient was recently discharged to [facility] [place]. Patient reports he stayed for 1 night and left AMA due to not liking the facility. Patient initially presented to the ER after weakness and fall but was discharged home however when he got home from hospital he got out of the car and shortly thereafter fell on his butt prompting him to come back patient denies hitting his head or any loss of consciousness.. Patient was recently admitted to the hospital and treated and sent to [facility] secondary to broken left clavicle. Additional medical history includes CAD, CVA, dementia, diabetes mellitus, GERD, depression and neck smoker. Hip x-ray completed showing no acute findings. Lab work completed showing white blood cell 7.54, hemoglobin 13.1, sodium 136, creatinine 1.03, bun 21. Patient denies chest pain or shortness of breath. Patient denies nausea vomiting or diarrhea. Patient denies any urinary burning or frequency. Current vital signs temp 98.5, heart rate 76, respiratory rate 19, blood pressure 155/74 with pulse ox 100% on room air. At this time PT OT and social work services have been for further evaluation and discharge planning On 10/15/2024 patient is alert and oriented x 3 patient is now agreeable to [facility] upon discharge. Patient complaining about urinary retention will consult urology services patient maintained on Flomax. Current vital signs temp 98.1, heart rate 62, respiratory rate 18, blood pressure 118/59 with pulse ox of 96% on room air. Patient denies chest pain or shortness of breath. Patient denies nausea vomiting or diarrhea. Patient denies any urinary burning or frequency Patient Condition at Discharge: Fair Plan - Discharge Summary Discharge Rx Participant: No New Discharge Prescriptions: New HYDROcodone/APAP 5-325MG [Thaxton 5-325] 1 each PO Q4HR PRN 3 Days #18 tab PRN Reason: Moderate Pain (Scale 4 To 6) Continue Tamsulosin [Flomax] 0.4 mg PO DAILY Clopidogrel [Plavix] 75 mg PO DAILY Ergocalciferol [Vitamin D2 (1250 Mcg = 94223 Iu)] 1,250 mcg PO WEEKLY Memantine HCl 5 mg PO BID Pantoprazole Sodium [Protonix] 40 mg PO BID Atorvastatin [Lipitor] 80 mg PO HS 30 Days #30 tab Metoprolol Tartrate [Lopressor] 25 mg PO BID Insulin Glargine-Yfgn [Semglee (Yfgn) Pen] 75 unit SQ DAILY Discontinued HYDROcodone/APAP 10-325MG [Thaxton 10-325] 1 tab PO Q8H PRN PRN Reason: Pain Discharge Medication List Tamsulosin [Flomax] 0.4 mg PO DAILY 11/09/18 [History] Clopidogrel [Plavix] 75 mg PO DAILY 08/06/23 [History] Ergocalciferol [Vitamin D2 (1250 Mcg = 16236 Iu)] 1,250 mcg PO WEEKLY 08/06/23 [History] Atorvastatin [Lipitor] 80 mg PO HS 30 Days #30 tab 08/07/23 [Rx] Memantine HCl 5 mg PO BID 08/27/24 [History] Insulin Glargine-Yfgn [Semglee (Yfgn) Pen] 75 unit SQ DAILY 10/06/24 [History] Metoprolol Tartrate [Lopressor] 25 mg PO BID 10/06/24 [History] Pantoprazole Sodium [Protonix] 40 mg PO BID 10/06/24 [History] HYDROcodone/APAP 5-325MG [Thaxton 5-325] 1 each PO Q4HR PRN 3 Days #18 tab 10/15/24 [Rx] Follow up Appointment(s)/Referral(s): Pierce Garduno, [NON-STAFF] - As Needed Ej Gibson MD [Primary Care Provider] - 1-2 days
[2024-10-15 16:10] VITALS: BP 137/78; PULSE 62; TEMP 97.9
== END 2024-10-15 16:38 ==
LOC: EC 22:49 → 4SSUR 10-14 01:01
PROVIDERS: ADMIT Internal Medicine; ATTEND Internal Medicine
DX: R53.1 Weakness (principal); I25.10 Atherosclerotic heart disease of native coronary artery without angina pectoris; F03.90 Unspecified dementia, unspecified severity, without behavioral disturbance, psychotic disturbance, mood disturbance, and anxiety; K21.9 Gastro-esophageal reflux disease without esophagitis; E78.5 Hyperlipidemia, unspecified; I12.9 Hypertensive chronic kidney disease with stage 1 through stage 4 chronic kidney disease, or unspecified chronic kidney disease; N18.9 Chronic kidney disease, unspecified; E10.22 Type 1 diabetes mellitus with diabetic chronic kidney disease; N40.1 Benign prostatic hyperplasia with lower urinary tract symptoms; R33.8 Other retention of urine; F32.A Depression, unspecified; E10.43 Type 1 diabetes mellitus with diabetic autonomic (poly)neuropathy; Z86.73 Personal history of transient ischemic attack (TIA), and cerebral infarction without residual deficits; Z87.891 Personal history of nicotine dependence; Z91.81 History of falling; Z79.899 Other long term (current) drug therapy; Z79.02 Long term (current) use of antithrombotics/antiplatelets; Z79.4 Long term (current) use of insulin
CPT/HCPCS: 96361; 96372; 96374; 99285; 36415; 97162; 97166; 80053 ×2; 83735; 85025 ×2; 83036; 73521; G0378 ×2; J2270; J1650